=== PATIENT | female | born 1940 | race Caucasian/White ===

== ENCOUNTER → 2018-05-05 12:28 | Outpatient (CLI) | payer MEDICARE, OTHER, SELFPAY ==
[2018-05-05 14:07] LABS: Erythrocyte Sedimentation Rate 2 mm/hr (0-30)
[2018-05-05 14:16] LABS: Rheumatoid Factor < 10.0 IU/mL (<15)
[2018-05-08 17:45] LABS: ANTINUCLEAR ANTIBODIES DIRECT Negative (Negative)
== END ==
PROVIDERS: Family Provider Internal Medicine; PCP Internal Medicine; Visit Provider Internal Medicine Pulmonary Disease
DX: R05 Cough (principal)
CPT/HCPCS: 36415; 82164; 85652; 86038; 86431; 87385

== ENCOUNTER → 2018-05-06 09:58 | Outpatient (CLI) | payer MEDICARE, OTHER, SELFPAY | PROVIDERS: Family Provider Internal Medicine; PCP Internal Medicine; Visit Provider Internal Medicine Pulmonary Disease | DX: R05 Cough (principal) | CPT/HCPCS: 87015; 87070; 87077; 87101; 87106; 87116; 87205; 87206 ==

== ENCOUNTER → 2018-06-14 10:15 | Outpatient (CLI) | payer MEDICARE, OTHER, SELFPAY | PROVIDERS: Family Provider Internal Medicine; PCP Internal Medicine; Visit Provider Internal Medicine Pulmonary Disease | DX: J47.9 Bronchiectasis, uncomplicated (principal) | CPT/HCPCS: 87015; 87116; 87206 ==

== ENCOUNTER → 2018-06-30 10:31 | Outpatient (CLI) | payer MEDICARE, OTHER, SELFPAY | PROVIDERS: Family Provider Internal Medicine; PCP Internal Medicine; Visit Provider Surgery | DX: Z12.31 Encounter for screening mammogram for malignant neoplasm of breast (principal); Z85.3 Personal history of malignant neoplasm of breast; Z90.12 Acquired absence of left breast and nipple | CPT/HCPCS: 77061; 77067; G0279 ==

== ENCOUNTER → 2018-07-19 09:24 | Outpatient (CLI) | payer MEDICARE, OTHER, SELFPAY | PROVIDERS: Family Provider Internal Medicine; PCP Internal Medicine; Visit Provider Internal Medicine Pulmonary Disease | DX: J47.9 Bronchiectasis, uncomplicated (principal) | CPT/HCPCS: 87015; 87070; 87116; 87205; 87206 ==

== ENCOUNTER → 2018-07-20 09:11 | Outpatient (CLI) | payer MEDICARE, OTHER, SELFPAY | PROVIDERS: Family Provider Internal Medicine; PCP Internal Medicine; Visit Provider Internal Medicine Pulmonary Disease | DX: J47.9 Bronchiectasis, uncomplicated (principal) | CPT/HCPCS: 87015; 87070; 87116; 87205; 87206 ==

== ENCOUNTER → 2018-08-11 09:31 | Outpatient (CLI) | payer MEDICARE, OTHER, SELFPAY ==
[2018-08-11 10:56] LABS: Absolute Lymphocyte Count 1.67 X10^3/ul (0.83-4.51); Absolute Neutrophil Count 5.5 X10^3/uL (2.0-7.7); Basophil# 0.05 X10^3/uL; Basophil% 0.6 % (0-1); Eosinophil# 0.19 X10^3/uL; Eosinophils% 2.4 % (0-5); Hematocrit 46.8 % (37-47); Hemoglobin 15.4 g/dl (12.0-15.0); Lymphocyte # 1.67 X10^3/ul (4.0); Lymphocyte % 20.8 % (19-41); Mean Corp Hgb Conc 32.9 g/gl (32-36); Mean Corpuscular Hgb 28.6 pg (27.0-32.0); Mean Corpuscular Volume 86.8 fL (81-99); Mean Platelet Vol. 9.9 fl (6.2-12.0); Monocyte# 0.56 X10^3/uL; Neutrophil # 5.52 X10^3/uL (2.7-7.7); Platelet Count 379 K/mm3 (150-450); RBC Distribution Width CV 13.9 % (11.6-14.6); RBC Distribution Width SD 44.4 fl (35.1-43.9); Red Blood Count 5.39 M/mm3 (4.2-5.4)
[2018-08-11 10:57] LABS: POSITIVE COUNT NO; POSITIVE DIFFERENTIAL NO; POSITIVE MORPHOLOGY NO
[2018-08-14 14:06] LABS: Immunoglobulin A 145 mg/dL (64-422); Immunoglobulin G 850 mg/dL (700-1600); Immunoglobulin M 34 mg/dL (26-217)
[2018-08-15 09:29] LABS: Immunoglobulin E 13 IU/mL (0-100)
== END ==
PROVIDERS: Family Provider Internal Medicine; PCP Internal Medicine; Referring Provider Internal Medicine Pulmonary Disease; Visit Provider Internal Medicine Pulmonary Disease
DX: J47.9 Bronchiectasis, uncomplicated (principal)
CPT/HCPCS: 36415; 82784; 82785; 85025; 87101; 87106

== ENCOUNTER 2018-10-18 10:52 | Day surgery (SDC) | payer MEDICARE, OTHER, SELFPAY ==
[2018-10-18] VITALS (11 sets, daily range): BP systolic 116–165; BP diastolic 75–108; PULSE 78–102; RESP 16–18; TEMP 36.2–36.7; O2SAT 93–98; BMI 33.0
--- NOTE | 2018-10-18 | FLU_PTH ---
PATIENT: SADAF KRUGER LOC: EN U#:[id number] AGE/SX: 78/F ROOM: RE10/18/[address]: Dr. Addi Henson MD : 1940 BED: DIS: 10/18/2018 SPEC #: [id number] RECD: 10/18/18 14:46 STATUS: ELAINE ALIYAH #: [id number] SHIRAZ: 10/18/18 00:[address]: Addi Henson V DEPT: CYTOLOGY RECD BY: Sumeet Lam ENTERED: 10/18/18 14:46 SP TYPE: Fluid OTHR DR: Dr. Kristal Gutierrez MD Tissues: Bronchus of right upper lobe Procedures: Pap Stain (control) Special Stain Group II Surgery Specimen Level IV Cell Block Cytospin Fluid HEADER OPERATION: Bronchoscopy, BAL PRE-OP DIAGNOSIS: Mucous plug TISSUE SUBMITTED: RUL anterior segment DIAGNOSIS CYTOLOGY Right upper lobe anterior segment mucous plug (cytospin and cell block): Negative for malignant cells. Acute inflammation. AM:annika 10/19/18 COMMENT The specimen contains abundant acute inflammation, degenerating epithelial cells and occasional bacterial colonies. Clinical correlation is suggested. CYTOLOGY STUDY Slides are reviewed. CYTOLOGY GROSS Received is 25 ml of white cloudy fluid labeled with the patient's name and and designated per the requisition as RUL anterior segment. Submitted for cytology preparation including cell block. / 10/18/18 TC:2 CPT: 02963, 60462
[2018-10-18 14:17] LABS: Cytology, Washings SEE PATHOLOGY REPORT
[2018-10-18 14:56] LABS: Source- Body Fluid BRONCHIAL LAVAGE
[2018-10-18 14:57] LABS: Appearance/Body Fluid CLOUDY; Body Fluid QC Type(s) BF1Q,BF2Q; Color/Body Fluid COLORLESS; Red Cell Count/Body Fluid 238 /mm3; White Blood Count/Body Fluid 5788 /mm3
[2018-10-18 15:07] LABS: Lymphocytes 11 %; Monocytes 10 %; Neutrophil (Segs) 79 %
[2018-10-19 10:20] LABS: Pathologist Comment/Body Fluid Reviewed
--- NOTE | 2018-10-25 09:16 | OP.ENDO_ITS ---
Patient Name: Hollie Ugarte Procedure Date: 10/18/2018 12:27 PM Date of : 1940 Age: 78 Procedure: Bronchoscopy Indications: Chronic cough with abnormal CT Providers: Addi Henson MD Referring MD: Kristal Gutierrez Medicines: Lidocaine applied to nares and subglottic space, Lidocaine 2% Nebulizer 2.5 mL, Propofol per Anesthesia Complications: No immediate complications Procedure: Pre-Anesthesia Assessment: - A History and Physical has been performed. Patient meds and allergies have been reviewed. The risks and benefits of the procedure and the sedation options and risks were discussed with the patient. All questions were answered and informed consent was obtained. Patient identification and proposed procedure were verified prior to the procedure in the procedure room. Mental Status Examination: normal. Airway Examination: normal oropharyngeal airway. Respiratory Examination: clear to auscultation. CV Examination: RRR, no murmurs, no S3 or S4. ASA Grade Assessment: II - A patient with mild systemic disease. After reviewing the risks and benefits, the patient was deemed in satisfactory condition to undergo the procedure. The anesthesia plan was to use See Anastvenkatia notes, Diprovan used. Immediately prior to administration of medications, the patient was re-assessed for adequacy to receive sedatives. The heart rate, respiratory rate, oxygen saturations, blood pressure, adequacy of pulmonary ventilation, and response to care were monitored throughout the procedure. The physical status of the patient was re-assessed after the procedure. - A History and Physical has been performed. Patient meds and allergies have been reviewed. The risks and benefits of the procedure and the sedation options and risks were discussed with the patient's The patient. All questions were answered and informed consent was obtained. Patient identification and proposed procedure were verified prior to the procedure by the nurse in the procedure room Proceedure room. Mental Status Examination: normal. Airway Examination: normal oropharyngeal airway. Respiratory Examination: clear to auscultation. CV Examination: normal. ASA Grade Assessment: II - A patient with mild systemic disease. After reviewing the risks and benefits, the patient was deemed in satisfactory condition to undergo the procedure. The anesthesia plan was to use moderate sedation / analgesia (conscious sedation). Immediately prior to administration of medications, the patient was re-assessed for adequacy to receive sedatives. The heart rate, respiratory rate, oxygen saturations, blood pressure, adequacy of pulmonary ventilation, and response to care were monitored throughout the procedure. The physical status of the patient was re-assessed after the procedure. After I obtained informed consent, the scope was passed under direct vision. Throughout the procedure, the patient's blood pressure, pulse, and oxygen saturations were monitored continuously. The bronchoscope was introduced through the right nostril and advanced to the tracheobronchial tree of both lungs. The procedure was accomplished without difficulty. Findings: The nasopharynx/oropharynx appears normal. The larynx appears normal. The vocal cords appear normal. The subglottic space is normal. The trachea is of normal caliber. The harley is sharp. The tracheobronchial tree was examined to at least the first subsegmental level. Bronchial mucosa and anatomy are normal; there are no endobronchial lesions, and no secretions. Bronchoalveolar lavage was performed in the RUL anterior segment (B3) of the lung and sent for cell count, bacterial culture, viral smears & culture, fungal & AFB analysis and cytology for immunocompromised host protocol, cell count and differential, bacterial, AFB and fungal analysis, AFB analysis & culture and Aspergillus antigen. 120 mL of fluid were instilled. 40 mL were returned. The return was cloudy. Mucous plugs were present in the return fluid. Right Lung Abnormalities: Edema was found in the anterior segment of the right upper lobe (B3). Impression: - Chronic cough with abnormal CT - The airway examination was normal. - Bronchoalveolar lavage was performed. - Edema was present in the anterior segment of the right upper lobe (B3). - Normal nasal passageway. - Chronic bronchitis was found. - A mucous plug was found in the anterior segment of the left upper lobe (B3). Recommendation: - Await BAL results. Procedure Code(s): --- Professional --- 50488, Bronchoscopy, rigid or flexible, including fluoroscopic guidance, when performed; with bronchial alveolar lavage Diagnosis Code(s): --- Professional --- T17.990A, Other foreign object in respiratory tract, part unspecified in causing asphyxiation, initial encounter J42, Unspecified chronic bronchitis R91.8, Other nonspecific abnormal finding of lung field R05, Cough CPT copyright 2017 [employer]. All rights reserved. The codes documented in this report are preliminary and upon technical services consultant review may be revised to meet current compliance requirements. MD Addi Page MD 10/25/2018 9:16:26 AM This report has been signed electronically. Number of Addenda: 0 Note Initiated On: 10/18/2018 12:27 PM
== END 2018-10-18 15:17 | disposition home or self-care (01) ==
LOC: EN 10:53 → AC 10:59
PROVIDERS: Family Provider Internal Medicine; PCP Internal Medicine; Referring Provider Internal Medicine; Visit Provider Internal Medicine Pulmonary Disease
PROC: 0BJ08ZZ Inspection of Tracheobronchial Tree, Via Natural or Artificial Opening Endoscopic (ICD-10-PCS; CPT 31622; principal; 2018-10-18 11:45)
DX: J42 Unspecified chronic bronchitis (principal); T17.890A Other foreign object in other parts of respiratory tract causing asphyxiation, initial encounter; X58.XXXA Exposure to other specified factors, initial encounter; Y93.9 Activity, unspecified; Y92.9 Unspecified place or not applicable; Y99.9 Unspecified external cause status; R05 Cough; J47.9 Bronchiectasis, uncomplicated; J30.9 Allergic rhinitis, unspecified; B37.9 Candidiasis, unspecified; I10 Essential (primary) hypertension; E55.9 Vitamin D deficiency, unspecified; K21.9 Gastro-esophageal reflux disease without esophagitis; F32.9 Major depressive disorder, single episode, unspecified; F41.9 Anxiety disorder, unspecified; Z78.0 Asymptomatic menopausal state; Z85.828 Personal history of other malignant neoplasm of skin; Z85.3 Personal history of malignant neoplasm of breast; Z86.718 Personal history of other venous thrombosis and embolism
CPT/HCPCS: 31624; 87015; 87070; 87075; 87077; 87101; 87106; 87116; 87186; 87205; 87206; 88108; 88305; 88313; 89050; J7120

== ENCOUNTER 2018-11-03 16:56 | Observation (INO) | payer MEDICARE, OTHER, SELFPAY ==
[2018-10-18 11:44] VITALS: BMI 33.0
[2018-11-03 16:58] VITALS: BP 154/75; PULSE 109; RESP 18; TEMP 37.2; O2SAT 96; BMI 31.3
--- NOTE | 2018-11-03 17:10 | EKG12_ITS ---
Test Reason : SYNCOPE Blood Pressure : / mmHG Vent. Rate : 105 BPM Atrial Rate : 105 BPM P-R Int : 166 ms QRS Dur : 086 ms QT Int : 340 ms P-R-T Axes : 038 -47 084 degrees QTc Int : 449 ms Sinus tachycardia Left axis deviation Left ventricular hypertrophy with repolarization abnormality Abnormal ECG Confirmed by PARTHA HOWARD ([id number]), greeting card editor DC HAWKINS ([id number]) on 11/06/2018 12:59:54 PM Referred By: SARA Confirmed By:PARTHA HOWARD
--- NOTE | 2018-11-03 17:11 | CT_ITS ---
STUDY: CT BRAIN WITHOUT CONTRAST REASON FOR EXAM: Female, 78 years old. Syncope. RADIATION DOSAGE (If Supplied By Facility): CTDIvol = ( 44.99 ) mGy, DLP = ( 745.49 ) mGycm TECHNIQUE: Transaxial CT imaging of the brain was performed without administration of intravenous contrast material. Individualized dose optimization techniques were used for this CT. COMPARISON: None. FINDINGS: Normal soft tissue structures. Normal calvarium. There is mild cerebral atrophy with widening of the extra-axial spaces and ventricular dilatation. There are areas of decreased attenuation within the white matter tracts of the supratentorial brain, consistent with microvascular disease changes. Normal basal ganglia and thalami. Normal brainstem. There is mild cerebellar atrophy. There is no intracranial hemorrhage. There are no findings of an acute ischemic infarction. There is mucoperiosteal inflammatory disease of the paranasal sinuses consistent with moderate chronic sinusitis. CT/Brain/Head without Contrast IMPRESSION: Stable atrophy and white matter disease with no acute abnormality. Electronically Signed: Felipe Infante MD at 17:49 EST , Service support ,
--- NOTE | 2018-11-03 17:11 | CT_ITS ---
STUDY: CT CERVICAL SPINE WITHOUT CONTRAST REASON FOR EXAM: Female, 78 years old. Syncope. Fall. RADIATION DOSAGE (If Supplied By Facility): CTDIvol = ( 26.75 ) mGy, DLP = ( 516.09 ) mGycm TECHNIQUE: High resolution transaxial imaging was performed without contrast material. Sagittal and coronal images were reconstructed. Individualized dose optimization techniques were used for this CT. COMPARISON: None FINDINGS: No definite acute fracture/dislocation. The cervical junction is intact. C1-C2 articulation is intact. Mild reversal of curvature. 2 mm anterolisthesis of C3 on C4. 2 mm anterolisthesis of C4 on C5. Otherwise normal alignment. Facet joints are intact at all levels bilaterally. No jumped facets. There is multilevel spondyloarthropathy. Multilevel degenerative disc disease seen. Multilevel loss of disc height. Multilevel posterior marginal osteophytes and disc bulges. Multilevel neural foraminal narrowing. Findings most prominent at C6-C7. Visualized paraspinal soft tissues and structures are unremarkable. CT/Spine Cervical without Contras IMPRESSION: There is no definite acute fracture/dislocation. Degenerative changes. Electronically Signed: Felipe Infante MD at 18:15 EST , Service support ,
--- NOTE | 2018-11-03 17:25 | RAD_ITS ---
STUDY: X-RAY CHEST REASON FOR EXAM: Female, 78 years old. Syncope. TECHNIQUE: Single AP portable view of the chest. COMPARISON: None. FINDINGS: The lungs are clear and expanded. There is no demonstrated pleural abnormality. Normal size heart. Normal mediastinum and amy. Normal visualized pulmonary arteries. There is atherosclerotic tortuosity of the aortic arch and descending thoracic aorta. Normal visualized thoracic spine. Normal visualized ribs, clavicles, and shoulders. There is no demonstrated abnormality of the visualized soft tissue structures of the upper abdomen. There are clips in the left axilla consistent with lymphadenectomy for breast cancer. RAD/Chest 1 View (Portable) IMPRESSION: No acute chest disease. Electronically Signed: Felipe Infante MD at 18:17 EST , Service support ,
[2018-11-03] MEDS: 0.9% Normal Saline 1,000 ML 150 ML IV ×2 (17:38→23:26)
[2018-11-03 17:39] LABS: Absolute Neutrophil Count 5.5 X10^3/uL (2.0-7.7); Basophil# 0.06 X10^3/uL; Basophil% 0.8 % (0-1); Eosinophil# 0.12 X10^3/uL; Eosinophils% 1.5 % (0-5); Hematocrit 45.8 % (37-47); Hemoglobin 15.1 g/dl (12.0-15.0); Lymphocyte % 20.2 % (19-41); Mean Corpuscular Hgb 28.2 pg (27.0-32.0); Mean Corpuscular Volume 85.6 fL (81-99); Mean Platelet Vol. 9.5 fl (6.2-12.0); Monocyte# 0.59 X10^3/uL; Monocyte% 7.5 % (0-10); Neutrophil # 5.52 X10^3/uL (2.7-7.7); Neutrophil % 69.7 % (47-70); Platelet Count 311 K/mm3 (150-450); RBC Distribution Width CV 13.4 % (11.6-14.6); RBC Distribution Width SD 41.7 fl (35.1-43.9); Red Blood Count 5.35 M/mm3 (4.2-5.4); White Blood Count 7.9 K/mm3 (4.4-11.0)
[2018-11-03 17:45] LABS: POSITIVE COUNT NO; POSITIVE DIFFERENTIAL NO; POSITIVE MORPHOLOGY NO
--- NOTE | 2018-11-03 17:56 | ED.VISSUMM ---
- ER Visit Summary Date of Service: 11/03/18 Chief Complaint: Near syncope History of Present Illness: The patient is a 78 F with a history of chronic cough for the past 3 years. She had a bronchoscopy performed approximately 2 weeks ago and is currently on Brisa nasal lid. Patient reports multiple episodes of near syncope that have worsened since her bronchoscopy. Today she fell to the ground with this episode but denied any full loss of consciousness. She denies palpitations or irregular heart rate prior to the episodes. Past history significant for reflux disease, hypertension, and breast cancer that led to mastectomy. She has had prior cholecystectomy. Physical Examination: Blood pressure is 154/75, temperature 98.9, heart rate 109, respiratory rate 18, pulse ox 96% on room air. Patient sitting upright in bed no acute distress. She is alert and speaking full sentences. Head neck examination was mild cervical paraspinal tenderness. Heart is regular rate and rhythm. Lung sounds are clear. Abdomen is soft and nontender. Extremity examination reveals mild tenderness to both shoulders, but she does have full range of motion. Neuro exam reveals no focal deficits. Test Results: EKG is sinus tach at 105, unchanged when compared to prior. CBC was hemoglobin 15.1. Chemistry studies normal. Troponin less than 0.015. Chest x-ray shows no acute disease. CT head shows stable findings with no acute abdomen noted. CT the C-spine shows no acute fracture. Emergency Department Course and Treatment: Patient received IV fluids here. On repeat evaluation she remains mildly tachycardic. Patient has had multiple episodes of near syncope, today to the point where she fell to the floor. She will be admitted observation status overnight for monitoring. Treatment Plan: [] Disposition: Admit Impression: Near syncope This note was generated with [employer] dictation software. It may contain incorrect words, spelling, and punctuation that were not noted in review of the chart prior to signing ED Disposition - Plan for ED Patient: Chief Complaint: Syncope Referrals: Kristal Gutierrez MD [Primary Care Provider] -
[2018-11-03 18:24] LABS: Anion Gap 11 (5-15); BUN 15 mg/dL (7-18); BUN/Creat Ratio 14.9 RATIO (10-20); Calcium,Total 8.6 mg/dL (8.5-10.1); Chloride 107 mmol/L (98-107); Creatinine, Serum 1.01 mg/dL (0.55-1.02); EST Glomerular Filtration Rate 56 mL/min (>60); Est Glom Filt Rate - Afr Amer 68 mL/min (>60); Glucose 137 mg/dL (74-106); Potassium 3.6 mmol/L (3.5-5.1); Sodium Level 139 mmol/L (136-145)
[2018-11-03 18:39] VITALS: BP 160/90; PULSE 110; RESP 18; TEMP 37.1; O2SAT 98
[2018-11-03 19:00] VITALS: BP 137/73; PULSE 110; RESP 19; TEMP 37.1; O2SAT 100
--- NOTE | 2018-11-03 20:00 | PCM.HP.STD ---
History of Present Illness Date of Admission: 11/03/18 The patient is a 78 year old F past medical history of hypertension and depression. She recently had a bronchial washout on account of a chronic cough for 3 years and states that she was found to have MRSA in the right lung. She was started on linezolid. She is for about the past couple of weeks, she has been having some spells which her description of it is very vague but states that she feels like her head gets clouded and she has to struggle to get out of this face and also feels some stiffness on the right side. She also feels like she is about to fall when she has those episodes and had one today which her witnessed that she fell. She did not lose consciousness but had (afterwards she was quite drowsy and lethargic. She had no associated urinary or fecal incontinence or tongue biting. She denied feeling her heart racing admitted to subjective fever but no chills, denies any chest pain, palpitations, abdominal pain, diarrhea or vomiting. She denies any weakness in any extremity and has not noticed any mouth drooping. In the ED, vitals were significant for tachycardia with heart rate of 110. CBC was unremarkable and BMP was also unremarkable. Brain CT showed stable atrophy and areas of decreased attenuation in white matter tracts of supratentorial brain consistent with microvascular disease changes. CT of the cervical spine showed no definite acute fracture or dislocation and only showed degenerative changes. Chest x-ray showed no acute cardia pulmonary process. She has been admitted to be managed for near syncope to rule out a seizure. [] Past Medical History Allergies oxycodone HCl [From Percodan] Adverse Reaction (Verified 11/03/18 19:15) Nausea oxycodone terephthalate [From Percodan] Adverse Reaction (Verified 11/03/18 19:15) Nausea Sulfa (Sulfonamide Antibiotics) Adverse Reaction (Verified 11/03/18 19:15) Nausea/Vom/Diarrhea PEROXIDE Adverse Reaction (Uncoded 11/03/18 19:15) IN TOOTHEPASTE- CAUSED BLISTERS. Home Medications: Ambulatory Orders Medication Instructions Recorded ALPRAZolam [Xanax] 0.125 - 0.25 mg PO BID PRN PRN 10/14/15 Amlodipine [Norvasc] 5 mg PO DAILY 10/14/15 Timolol 0.5% [Timoptic] 2 drop EACH EYE BID 10/14/15 Ergocalciferol [Vitamin D] 50,000 unit PO UD 01/26/16 Acetaminophen [Tylenol Extra 500 mg PO QHS 11/03/18 Strength] Cyanocobalamin (Vitamin B-12) 1,000 mcg PO DAILY 11/03/18 [Vitamin B-12] Epinastine HCl [Elestat 0.05%] 1 drop EACH EYE PRN PRN 11/03/18 Fexofenadine HCl 180 mg PO DAILY 11/03/18 Flaxseed Oil 1,000 mg PO DAILY 11/03/18 Fluticasone/Vilanterol [Breo 1 puff INHALATION BID 11/03/18 Ellipta 200-25 Mcg INH] Ibuprofen [Advil] 200 mg PO PRN PRN 11/03/18 Linezolid 600 mg PO DAILY 11/03/18 Omeprazole 40 mg PO DAILY 11/03/18 Surgical History: - - Mastectomy Psychiatric History: Depression 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 Denies: Chills, Malaise, Weight Change Eyes: Denies: Blurred vision, Double vision, Vision Change HEENT: Denies: Head Aches, Sinus Congestion, Sinus Drainage Cardiovascular: Denies: Chest Pain, Chest Tightness, Heaviness, Light Headedness, Palpitations Respiratory: Denies: Pleuritic Pain, Shortness of Breath, Shortness of breath at rest, Shortness of breath upon exertion, Wheezing Gastrointestinal: Denies: Abdominal Pain, Nausea, Vomiting Genitourinary: Denies: Dysuria Musculoskeletal: Denies: Joint Pain, Joint Tenderness Skin: Denies: Rash, Wounds Neurological: Reports: Confusion. Denies: Balance problems, Blurred vision, Double vision, Change in Speech, Slurred speech, Focal weakness, Numbness, Tingling, Seizures Psychiatric: Reports: Depression. Denies: Anxiety Hematologic/ Lymphatic: Denies: Easy Bruising, Easy Bleeding VTE Information - Inpt Only VTE Present on Admission: No VTE Pharm Prophylaxis ordered?: Yes - Physical Exam General: Alert, Oriented x3, Cooperative, No apparent distress, Lethargic HEENT: Atraumatic, PERRLA, EOMI, Normocephalic Oral: Moist Mucosa Neck: Supple, No JVD, Negative Carotid Bruits Lungs: Clear to auscultation, Normal air movement, No rhonchi, No wheeze, No rales Cardiovascular: Regular rate, Regular Rhythm, Normal S1, Normal S2, No murmurs Abdomen: Bowel Sounds Present, Soft, Non Tender, Non-Distended, No Hepato-splenomegaly Extremities: No clubbing, No cyanosis, No edema, Capillary Refill Less than 3 Seconds Skin: No rashes, No breakdown Musculoskeletal: No Tenderness to Palpation of Joints or Extremities Lymphatic: No Cervical, Supraclavicular, or Inguinal Adenopathy Neurological: Cranial nerves II-XII grossly intact, Deep Tendon Reflexes 2+/4 and Symmetrical, Neuro grossly intact, Motor Exam 5/5 strength throughout, Muscle tone normal, Sensory exam intact to light touch and pain, Coordination normal Psych/Mental Status: Normal Affect, Appropriate, Alert and oriented to time, place, person, mood and affect Vital Signs Temp Pulse Resp BP Pulse Ox 98.7 F 110 H 19 H 137/73 H 100 11/03/18 19:00 11/03/18 19:00 11/03/18 19:00 11/03/18 19:00 11/03/18 19:00 Oxygen Flow Rate (L/min) 2 Oxygen Delivery Method Nasal Cannula Weight: 150 lb Body Mass Index (BMI) 31.3 Laboratory Tests Past 24 Hrs 11/03/18 11/03/18 17:09 17:10 WBC 7.9 RBC 5.35 Hgb 15.1 H Hct 45.8 MCV 85.6 MCH 28.2 MCHC 33.0 RDW 13.4 RDW Differential 41.7 Plt Count 311 MPV 9.5 Immature Gran % (Auto) 0.300 Neut % (Auto) 69.7 Lymph % (Auto) 20.2 [place] % (Auto) 7.5 Eos % (Auto) 1.5 Baso % (Auto) 0.8 Absolute Neuts (auto) 5.5 Absolute Lymphs (auto) 1.60 Total Counted Not Reportable Sodium 139 Potassium 3.6 Chloride 107 Carbon Dioxide 21.0 Anion Gap 11 BUN 15 Creatinine 1.01 Estim Creat Clear Calc 50.10 Est GFR (MDRD) Af Amer 68 Est GFR (MDRD) Non-Af 56 L BUN/Creatinine Ratio 14.9 Glucose 137 H Calcium 8.6 Troponin I < 0.[address] 11/03/18 17:11 IMPRESSION: Stable atrophy and white matter disease with no acute abnormality. Electronically Signed: Felipe Infante MD at 17:49 EST , Service support , Cervical Spine CT 11/03/18 17:11 IMPRESSION: There is no definite acute fracture/dislocation. Degenerative changes. Electronically Signed: Felipe Infante MD at 18:15 EST , Service support , Chest X-Ray 11/03/18 17:25 IMPRESSION: No acute chest disease. Electronically Signed: Felipe Infante MD at 18:17 EST , Service support , Assessment/Plan All Active Problems Pain of right middle finger (Acute) Joint swelling, finger, hand (Acute) Cellulitis of finger (Acute) Nonhealing surgical wound (Acute) 78-year-old female presenting with complaints of near syncope 1. near syncope of unknown etiology differentials include cardiac arrhythmia vs seizure says symptoms started after she started taking Linezolid for MRSA infection in her right lung symptom description is very vague fell today admit to PCU with telemetry EKG showed sinus tachycardia with LVH and repolarisation abnormalities neurology consult monitor telemetry for any arrhhythmia monitor electrolytes to ensure they are WNL check orthostatics hydrate gently with IVF NS 2. Hypertension: fairly controlled; on amlodipine 3. MRSA lung infection: as recently diagnosed per bronchial washout and culture. on Linezolid. Side effects of linezolid reviewed and include seizures. Will hold for now until neurology reviews patient. 4. 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 Will monitor. DVT prophylaxis: heparin GI prophylaxis: on PPI Code Visit OBSV E&M: 60420 Initial observation care L3
--- NOTE | 2018-11-03 20:04 | HP.PCM_ITS ---
History of Present Illness Date of Admission: 11/03/18 The patient is a 78 year old F past medical history of hypertension and depression. She recently had a bronchial washout on account of a chronic cough for 3 years and states that she was found to have MRSA in the right lung. She was started on linezolid. She is for about the past couple of weeks, she has been having some spells which her description of it is very vague but states that she feels like her head gets clouded and she has to struggle to get out of this face and also feels some stiffness on the right side. She also feels like she is about to fall when she has those episodes and had one today which her witnessed that she fell. She did not lose consciousness but had (afterwards she was quite drowsy and lethargic. She had no associated urinary or fecal incontinence or tongue biting. She denied feeling her heart racing admitted to subjective fever but no chills, denies any chest pain, palpitations, abdominal pain, diarrhea or vomiting. She denies any weakness in any extremity and has not noticed any mouth drooping. In the ED, vitals were significant for tachycardia with heart rate of 110. CBC was unremarkable and BMP was also unremarkable. Brain CT showed stable atrophy and areas of decreased attenuation in white matter tracts of supratentorial brain consistent with microvascular disease changes. CT of the cervical spine showed no definite acute fracture or dislocation and only showed degenerative changes. Chest x-ray showed no acute cardia pulmonary process. She has been admitted to be managed for near syncope to rule out a seizure. [] Past Medical History Allergies oxycodone HCl [From Percodan] Adverse Reaction (Verified 11/03/18 19:15) Nausea oxycodone terephthalate [From Percodan] Adverse Reaction (Verified 11/03/18 19:15) Nausea Sulfa (Sulfonamide Antibiotics) Adverse Reaction (Verified 11/03/18 19:15) Nausea/Vom/Diarrhea PEROXIDE Adverse Reaction (Uncoded 11/03/18 19:15) IN TOOTHEPASTE- CAUSED BLISTERS. Home Medications: Ambulatory Orders Medication Instructions Recorded ALPRAZolam [Xanax] 0.125 - 0.25 mg PO BID PRN PRN 10/14/15 Amlodipine [Norvasc] 5 mg PO DAILY 10/14/15 Timolol 0.5% [Timoptic] 2 drop EACH EYE BID 10/14/15 Ergocalciferol [Vitamin D] 50,000 unit PO UD 01/26/16 Acetaminophen [Tylenol Extra 500 mg PO QHS 11/03/18 Strength] Cyanocobalamin (Vitamin B-12) 1,000 mcg PO DAILY 11/03/18 [Vitamin B-12] Epinastine HCl [Elestat 0.05%] 1 drop EACH EYE PRN PRN 11/03/18 Fexofenadine HCl 180 mg PO DAILY 11/03/18 Flaxseed Oil 1,000 mg PO DAILY 11/03/18 Fluticasone/Vilanterol [Breo 1 puff INHALATION BID 11/03/18 Ellipta 200-25 Mcg INH] Ibuprofen [Advil] 200 mg PO PRN PRN 11/03/18 Linezolid 600 mg PO DAILY 11/03/18 Omeprazole 40 mg PO DAILY 11/03/18 Surgical History: - - Mastectomy Psychiatric History: Depression 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 Denies: Chills, Malaise, Weight Change Eyes: Denies: Blurred vision, Double vision, Vision Change HEENT: Denies: Head Aches, Sinus Congestion, Sinus Drainage Cardiovascular: Denies: Chest Pain, Chest Tightness, Heaviness, Light Headedness, Palpitations Respiratory: Denies: Pleuritic Pain, Shortness of Breath, Shortness of breath at rest, Shortness of breath upon exertion, Wheezing Gastrointestinal: Denies: Abdominal Pain, Nausea, Vomiting Genitourinary: Denies: Dysuria Musculoskeletal: Denies: Joint Pain, Joint Tenderness Skin: Denies: Rash, Wounds Neurological: Reports: Confusion. Denies: Balance problems, Blurred vision, Double vision, Change in Speech, Slurred speech, Focal weakness, Numbness, Tingling, Seizures Psychiatric: Reports: Depression. Denies: Anxiety Hematologic/ Lymphatic: Denies: Easy Bruising, Easy Bleeding VTE Information - Inpt Only VTE Present on Admission: No VTE Pharm Prophylaxis ordered?: Yes - Physical Exam General: Alert, Oriented x3, Cooperative, No apparent distress, Lethargic HEENT: Atraumatic, PERRLA, EOMI, Normocephalic Oral: Moist Mucosa Neck: Supple, No JVD, Negative Carotid Bruits Lungs: Clear to auscultation, Normal air movement, No rhonchi, No wheeze, No rales Cardiovascular: Regular rate, Regular Rhythm, Normal S1, Normal S2, No murmurs Abdomen: Bowel Sounds Present, Soft, Non Tender, Non-Distended, No Hepato- splenomegaly Extremities: No clubbing, No cyanosis, No edema, Capillary Refill Less than 3 Seconds Skin: No rashes, No breakdown Musculoskeletal: No Tenderness to Palpation of Joints or Extremities Lymphatic: No Cervical, Supraclavicular, or Inguinal Adenopathy Neurological: Cranial nerves II-XII grossly intact, Deep Tendon Reflexes 2+/4 and Symmetrical, Neuro grossly intact, Motor Exam 5/5 strength throughout, Muscle tone normal, Sensory exam intact to light touch and pain, Coordination normal Psych/Mental Status: Normal Affect, Appropriate, Alert and oriented to time, place, person, mood and affect Vital Signs Temp Pulse Resp BP Pulse Ox 98.7 F 110 H 19 H 137/73 H 100 11/03/18 19:00 11/03/18 19:00 11/03/18 19:00 11/03/18 19:00 11/03/18 19:00 Oxygen Flow Rate (L/min) 2 Oxygen Delivery Method Nasal Cannula Weight: 150 lb Body Mass Index (BMI) 31.3 Laboratory Tests Past 24 Hrs 11/03/18 11/03/18 17:09 17:10 WBC 7.9 RBC 5.35 Hgb 15.1 H Hct 45.8 MCV 85.6 MCH 28.2 MCHC 33.0 RDW 13.4 RDW Differential 41.7 Plt Count 311 MPV 9.5 Immature Gran % (Auto) 0.300 Neut % (Auto) 69.7 Lymph % (Auto) 20.2 [place] % (Auto) 7.5 Eos % (Auto) 1.5 Baso % (Auto) 0.8 Absolute Neuts (auto) 5.5 Absolute Lymphs (auto) 1.60 Total Counted Not Reportable Sodium 139 Potassium 3.6 Chloride 107 Carbon Dioxide 21.0 Anion Gap 11 BUN 15 Creatinine 1.01 Estim Creat Clear Calc 50.10 Est GFR (MDRD) Af Amer 68 Est GFR (MDRD) Non-Af 56 L BUN/Creatinine Ratio 14.9 Glucose 137 H Calcium 8.6 Troponin I < 0.[address] 11/03/18 17:11 IMPRESSION: Stable atrophy and white matter disease with no acute abnormality. Electronically Signed: Felipe Infante MD at 17:49 EST , Service support , Cervical Spine CT 11/03/18 17:11 IMPRESSION: There is no definite acute fracture/dislocation. Degenerative changes. Electronically Signed: Felipe Infante MD at 18:15 EST , Service support , Chest X-Ray 11/03/18 17:25 IMPRESSION: No acute chest disease. Electronically Signed: Felipe Infante MD at 18:17 EST , Service support , Assessment/Plan All Active Problems Pain of right middle finger (Acute) Joint swelling, finger, hand (Acute) Cellulitis of finger (Acute) Nonhealing surgical wound (Acute) 78-year-old female presenting with complaints of near syncope 1. near syncope of unknown etiology * differentials include cardiac arrhythmia vs seizure * says symptoms started after she started taking Linezolid for MRSA infection in her right lung * symptom description is very vague * fell today * admit to PCU with telemetry * EKG showed sinus tachycardia with LVH and repolarisation abnormalities * neurology consult * monitor telemetry for any arrhhythmia * monitor electrolytes to ensure they are WNL * check orthostatics * hydrate gently with IVF NS * 2. Hypertension: fairly controlled; on amlodipine 3. MRSA lung infection: * as recently diagnosed per bronchial washout and culture. on Linezolid. * Side effects of linezolid reviewed and include seizures. * Will hold for now until neurology reviews patient. 4. Depression: States antidepressant was stopped by her life science technician on account of her starting Zyvox. Will monitor. DVT prophylaxis: heparin GI prophylaxis: on PPI Code Visit OBSV E&M: 60586 Initial observation care L3
[2018-11-03 20:28] VITALS: BMI 32.2
[2018-11-03 20:34] VITALS: BMI 32.1
[2018-11-03 20:36] VITALS: PULSE 109
[2018-11-03 20:38] VITALS: BP 136/110; PULSE 104; RESP 18; TEMP 36.8; O2SAT 97
[2018-11-03] MEDS: Acetaminophen 500 MG Tablet PO (20:57)
[2018-11-03] MEDS: Timolol 0.5% 5ML OPTH.BTL 1 DRP EACH EYE (22:01)
[2018-11-03 23:00] VITALS: PULSE 79
[2018-11-04] VITALS (16 sets, daily range): BP systolic 119–153; BP diastolic 55–86; PULSE 59–108; RESP 16–18; TEMP 36.6–36.8; O2SAT 94–97
[2018-11-04 06:25] LABS: Absolute Lymphocyte Count 1.72 X10^3/ul (0.83-4.51); Absolute Neutrophil Count 3.3 X10^3/uL (2.0-7.7); Basophil# 0.06 X10^3/uL; Basophil% 1.1 % (0-1); Eosinophil# 0.15 X10^3/uL; Eosinophils% 2.7 % (0-5); Hematocrit 41.9 % (37-47); Hemoglobin 13.7 g/dl (12.0-15.0); Lymphocyte # 1.72 X10^3/ul (4.0); Lymphocyte % 30.7 % (19-41); Mean Corp Hgb Conc 32.7 g/gl (32-36); Mean Corpuscular Hgb 28.2 pg (27.0-32.0); Mean Corpuscular Volume 86.4 fL (81-99); Mean Platelet Vol. 9.2 fl (6.2-12.0); Monocyte# 0.41 X10^3/uL; Monocyte% 7.3 % (0-10); Neutrophil # 3.26 X10^3/uL (2.7-7.7); Platelet Count 252 K/mm3 (150-450); RBC Distribution Width CV 13.5 % (11.6-14.6); RBC Distribution Width SD 41.5 fl (35.1-43.9); Red Blood Count 4.85 M/mm3 (4.2-5.4); White Blood Count 5.6 K/mm3 (4.4-11.0)
[2018-11-04 06:32] LABS: POSITIVE COUNT NO; POSITIVE DIFFERENTIAL NO; POSITIVE MORPHOLOGY NO
[2018-11-04] MEDS: 0.9% Normal Saline 1,000 ML 150 ML IV ×3 (06:34→21:04)
[2018-11-04 06:47] LABS: Anion Gap 8 (5-15); BUN 8 mg/dL (7-18); BUN/Creat Ratio 10.5 RATIO (10-20); Calcium,Total 7.9 mg/dL (8.5-10.1); Chloride 114 mmol/L (98-107); Creatinine, Serum 0.76 mg/dL (0.55-1.02); EST Glomerular Filtration Rate 78 mL/min (>60); Est Glom Filt Rate - Afr Amer 94 mL/min (>60); Estimated Creatinine Clearance 51.91 ml/min; Glucose 88 mg/dL (74-106); Potassium 3.9 mmol/L (3.5-5.1); Sodium Level 145 mmol/L (136-145)
[2018-11-04] MEDS: Albuterol 2.5 MG/3 ML VIAL.NEB. INHALATION ×2 (06:47→19:30)
[2018-11-04] MEDS: Budesonide Respules 0.5 MG/2 ML AMPUL.NEB. INHALATION ×2 (06:47→19:30)
--- NOTE | 2018-11-04 09:23 | MRI_ITS ---
STUDY: MRI BRAIN WITHOUT CONTRAST REASON FOR EXAM: Female, 78 years old. Near syncope. Vertigo. TECHNIQUE: Standardized multiplanar fat and water weighted pulse sequences were obtained. COMPARISON: CT brain 11/03/2018. FINDINGS: There is patient motion on several pulse sequences. There is no intracranial mass, hemorrhage, territorial infarct or acute ischemia. There is mild cerebral atrophy with widening of the extra-axial spaces and ventricular dilatation. There are a limited number of small white matter hyperintensities, distributed throughout the deep white matter tracts of the cerebral hemispheres, consistent with mild chronic white matter ischemic changes. Normal bilateral basal ganglia. Normal thalami. There is no extra-axial fluid accumulation. Normal flow voids within the major intracranial circulation suggesting patency by spin echo criteria. Normal sella turcica, pituitary gland, infundibular stalk, optic chiasm and hypothalamus. Normal tectal plate and pineal gland. Normal midbrain, james and medulla. Normal cerebellum. Normal basal cisterns. Normal bilateral temporal bones. Normal bilateral internal auditory canals. There is mucosal thickening in the sphenoid, ethmoid, and maxillary sinuses. There is marked sclerosis of the left maxillary sinus collins, which may indicate chronic osteitis. No demonstrated orbital abnormality, within the constraints of a routine brain study. Normal calvarium and skull base. Normal visualized soft tissue structures. Normal visualized upper cervical spine. MRI/Brain without Contrast IMPRESSION: 1. No acute intracranial findings. 2. Mild microvascular ischemic changes. 3. Moderate chronic sinusitis. Electronically Signed: Ann Marie Boudreaux MD at 18:16 EST Tel , Service support ,
[2018-11-04] MEDS: Pantoprazole Sodium 40 MG Tablet PO (09:47)
[2018-11-04] MEDS: Timolol 0.5% 5ML OPTH.BTL 1 DRP EACH EYE ×2 (09:47→20:47)
[2018-11-04] MEDS: Cyanocobalamin 500 MCG Tablet 1000 MCG PO (09:47)
[2018-11-04] MEDS: amLODIPine 5 MG Tablet PO (09:47)
[2018-11-04] MEDS: Enoxaparin 40 MG/0.4 ML Syringe SC (09:48)
--- NOTE | 2018-11-04 12:42 | PCM.CONS.GEN ---
Problem List (1) Pre-syncope Status: Acute Reason for Consult Date of Consultation: 11/04/18 Reason for Consultation: Possible Pre-syncope History of Present Illness: The patient is a 78 year old CF with PMH HTN, Depression, H/O Left Breast cancer s/p mastectomy recent h/o bronchoscopy about 2 weeks ago, found to have MRSA infection, started on Linezolid admitted with possible pre-syncope. Per patient for the past 2 weeks since being on Antibiotics she felt while speaking she would feel that she would be sleepy, would have a feeling of black out, per patient that feeling is difficult to explain, yesterday (11/03/18) had that feeling about 3 times, and also had a fall, was later brought to the ED. Patient and family denies any witnessed seizures, denies any tongue bite, loss of awareness or LOC with these episodes, denies any urinary incontinence per patient. She denies any GONZALEZ, dizziness, focal motor weakness, sensory loss. Per patient her symptoms started only after being on Linezolid and she was taken off her anti depressant by demand equipment repairer. She lives with her , denies any frequent falls, does drive, does not use cane or walker to ambulate and does not need assistance for her ADLs. Patient denies any H/O seizure or syncope in the past. [] Past Medical History Allergies oxycodone HCl [From Percodan] Adverse Reaction (Verified 11/03/18 19:15) Nausea oxycodone terephthalate [From Percodan] Adverse Reaction (Verified 11/03/18 19:15) Nausea Sulfa (Sulfonamide Antibiotics) Adverse Reaction (Verified 11/03/18 19:15) Nausea/Vom/Diarrhea PEROXIDE Adverse Reaction (Uncoded 11/03/18 19:15) IN TOOTHEPASTE- CAUSED BLISTERS. Home Medications: Ambulatory Orders Medication Instructions Recorded ALPRAZolam [Xanax] 0.125 - 0.25 mg PO BID PRN PRN 10/14/15 Amlodipine [Norvasc] 5 mg PO DAILY 10/14/15 Timolol 0.5% [Timoptic] 1 drop EACH EYE BID 10/14/15 Ergocalciferol [Vitamin D] 50,000 unit PO UD 01/26/16 Acetaminophen [Tylenol Extra 500 mg PO QHS 11/03/18 Strength] Cyanocobalamin (Vitamin B-12) 1,000 mcg PO DAILY 11/03/18 [Vitamin B-12] Fexofenadine HCl 180 mg PO DAILY 11/03/18 Flaxseed Oil 1,000 mg PO DAILY 11/03/18 Fluticasone/Vilanterol [Breo 1 puff INHALATION DAILY 11/03/18 Ellipta 200-25 Mcg INH] Linezolid 600 mg PO BID 11/03/18 Omeprazole 40 mg PO DAILY 11/03/18 Surgical History: - - Mastectomy Psychiatric History: Depression 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 history Lives: Spouse/ Significant Other Smoking Status: Never smoker Alcohol: None Drugs: None - *Family History Sibling History Items: Hypertension Maternal History Items: No pertinent history Paternal History Items: No pertinent history Review of Systems Constitutional: Reports: - - complete ROS negative except as doucmented in HPI Patient Problems: Active and Suspected Problems Pre-syncope (Acute) - Physical Exam General: Alert HEENT: Normocephalic Neck: Supple Lungs: Normal air movement Cardiovascular: Normal S1, Normal S2 Abdomen: Bowel Sounds Present Extremities: No cyanosis Neurological: Cranial nerves II-XII grossly intact, Deep Tendon Reflexes 2+/4 and Symmetrical, Neuro grossly intact, Motor Exam 5/5 strength throughout, Muscle tone normal, Sensory exam intact to light touch and pain, Coordination normal Psych/Mental Status: Normal Affect Vital Signs Temp Pulse Resp BP Pulse Ox 98.1 F 80 16 119/55 L 97 11/04/18 08:20 11/04/18 10:59 11/04/18 08:20 11/04/18 08:20 11/04/18 08:27 Oxygen Flow Rate (L/min) 3 Oxygen Delivery Method Room Air Weight: 69.8 kg Body Mass Index (BMI) 32.1 Orthostatic Vital Signs Start: 11/04/18 01:09 Freq: q24h Status: Active Protocol: Activity Type Activity Date Activity User E-Sign Co-Sign Detail Recorded Client Recorded Date Recorded By Document 11/04/18 06:59 [place] [id number] 11/04/18 07:01 [place] 11/04/18 06:59 Orthostatic Vitals Standing -Blood Pressure (90/60-120/80) 149/86 H -Extremity Use Right Arm -Pulse Rate (60-100) 84 Sitting -Blood Pressure (90/60-120/80) 153/84 H -Extremity Use Right Arm -Pulse Rate (60-100) 78 Lying -Blood Pressure (90/60-120/80) 151/68 H -Extremity Use Right Arm -Pulse Rate (60-100) 72 Intake and Output for Last 24 Hours 11/02/18 11/03/18 11/04/18 23:59 23:59 23:59 Intake Total 676 / 676 2306 / 2306 Balance 676 / 676 2306 / 2306 Laboratory Tests Past 24 Hrs 11/03/18 11/03/18 11/04/18 17:09 17:10 06:11 WBC 7.9 5.6 RBC 5.35 4.85 Hgb 15.1 H 13.7 Hct 45.8 41.9 MCV 85.6 86.4 MCH 28.2 28.2 MCHC 33.0 32.7 RDW 13.4 13.5 RDW Differential 41.7 41.5 Plt Count 311 252 MPV 9.5 9.2 Immature Gran % (Auto) 0.300 0.200 Neut % (Auto) 69.7 58.0 Lymph % (Auto) 20.2 30.7 Davis % (Auto) 7.5 7.3 Eos % (Auto) 1.5 2.7 Baso % (Auto) 0.8 1.1 H Absolute Neuts (auto) 5.5 3.3 Absolute Lymphs (auto) 1.60 1.72 Total Counted Not Reportable Not Reportable Sodium 139 Potassium 3.6 Chloride 107 Carbon Dioxide 21.0 Anion Gap 11 BUN 15 Creatinine 1.01 Estim Creat Clear Calc 50.10 Est GFR (MDRD) Af Amer 68 Est GFR (MDRD) Non-Af 56 L BUN/Creatinine Ratio 14.9 Glucose 137 H Calcium 8.6 Troponin I < 0.015 11/04/18 06:11 WBC RBC Hgb Hct MCV MCH MCHC RDW RDW Differential Plt Count MPV Immature Gran % (Auto) Neut % (Auto) Lymph % (Auto) Davis % (Auto) Eos % (Auto) Baso % (Auto) Absolute Neuts (auto) Absolute Lymphs (auto) Total Counted Sodium 145 Potassium 3.9 Chloride 114 H Carbon Dioxide 23.0 Anion Gap 8 BUN 8 Creatinine 0.76 Estim Creat Clear Calc 51.91 Est GFR (MDRD) Af Amer 94 Est GFR (MDRD) Non-Af 78 BUN/Creatinine Ratio 10.5 Glucose 88 Calcium 7.9 L Troponin I Assessment/Plan All Active Problems Pre-syncope (Acute) Pain of right middle finger (Acute) Joint swelling, finger, hand (Acute) Cellulitis of finger (Acute) Nonhealing surgical wound (Acute) The patient is a 78 year old CF with PMH HTN, Depression, H/O Left Breast cancer s/p mastectomy recent h/o bronchoscopy about 2 weeks ago, found to have MRSA infection, started on Linezolid admitted with possible pre-syncope. Per patient for the past 2 weeks since being on Antibiotics she felt while speaking she would feel that she would be sleepy, would have a feeling of black out, per patient that feeling is difficult to explain, yesterday (11/03/18) had that feeling about 3 times, and also had a fall, was later brought to the ED. Patient and family denies any witnessed seizures, denies any tongue bite, loss of awareness or LOC with these episodes, denies any urinary incontinence per patient. She denies any GONZALEZ, dizziness, focal motor weakness, sensory loss. Per patient her symptoms started only after being on Linezolid and she was taken off her anti depressant by demand equipment repairer. She lives with her , denies any frequent falls, does drive, does not use cane or walker to ambulate and does not need assistance for her ADLs. Patient denies any H/O seizure or syncope in the past. Impression Possible [id number] medication induced, r/o cardiac etiology Unlikely to be seizures at present. Plan -Check MRI brain w/o contrast -Check EEG -Would defer change of antibiotic medication and antidepressant to hospitalist and demand equipment repairer -Labs reviewed -Further medical management per hospitalist team -GI/DVT prophylaxis -Fall precautions -PT/OT -Please call with questions if any -Thank you for allowing us to participate in patient's care and management Code Visit Inpatient E&M: [id number] Init Hosp L3
--- NOTE | 2018-11-04 12:46 | CON.PCM_ITS ---
Problem List (1) Pre-syncope Status: Acute Reason for Consult Date of Consultation: 11/04/18 Reason for Consultation: Possible Pre-syncope History of Present Illness: The patient is a 78 year old CF with PMH HTN, Depression, H/O Left Breast cancer s/p mastectomy recent h/o bronchoscopy about 2 weeks ago, found to have MRSA infection, started on Linezolid admitted with possible pre-syncope. Per patient for the past 2 weeks since being on Antibiotics she felt while speaking she would feel that she would be sleepy, would have a feeling of black out, per patient that feeling is difficult to explain, yesterday (11/03/18) had that feeling about 3 times, and also had a fall, was later brought to the ED. Patient and family denies any witnessed seizures, denies any tongue bite, loss of awareness or LOC with these episodes, denies any urinary incontinence per patient. She denies any GONZALEZ, dizziness, focal motor weakness, sensory loss. Per patient her symptoms started only after being on Linezolid and she was taken off her anti depressant by community outreach coordinator. She lives with her , denies any frequent falls, does drive, does not use cane or walker to ambulate and does not need assistance for her ADLs. Patient denies any H/O seizure or syncope in the past. [] Past Medical History Allergies oxycodone HCl [From Percodan] Adverse Reaction (Verified 11/03/18 19:15) Nausea oxycodone terephthalate [From Percodan] Adverse Reaction (Verified 11/03/18 19:15) Nausea Sulfa (Sulfonamide Antibiotics) Adverse Reaction (Verified 11/03/18 19:15) Nausea/Vom/Diarrhea PEROXIDE Adverse Reaction (Uncoded 11/03/18 19:15) IN TOOTHEPASTE- CAUSED BLISTERS. Home Medications: Ambulatory Orders Medication Instructions Recorded ALPRAZolam [Xanax] 0.125 - 0.25 mg PO BID PRN PRN 10/14/15 Amlodipine [Norvasc] 5 mg PO DAILY 10/14/15 Timolol 0.5% [Timoptic] 1 drop EACH EYE BID 10/14/15 Ergocalciferol [Vitamin D] 50,000 unit PO UD 01/26/16 Acetaminophen [Tylenol Extra 500 mg PO QHS 11/03/18 Strength] Cyanocobalamin (Vitamin B-12) 1,000 mcg PO DAILY 11/03/18 [Vitamin B-12] Fexofenadine HCl 180 mg PO DAILY 11/03/18 Flaxseed Oil 1,000 mg PO DAILY 11/03/18 Fluticasone/Vilanterol [Breo 1 puff INHALATION DAILY 11/03/18 Ellipta 200-25 Mcg INH] Linezolid 600 mg PO BID 11/03/18 Omeprazole 40 mg PO DAILY 11/03/18 Surgical History: - - Mastectomy Psychiatric History: Depression 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 AND 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 Lives: Spouse/ Significant Other Smoking Status: Never smoker Alcohol: None Drugs: None - *Family History Sibling History Items: Hypertension Maternal History Items: No pertinent history Paternal History Items: No pertinent history Review of Systems Constitutional: Reports: - - complete ROS negative except as doucmented in HPI Patient Problems: Active and Suspected Problems Pre-syncope (Acute) - Physical Exam General: Alert HEENT: Normocephalic Neck: Supple Lungs: Normal air movement Cardiovascular: Normal S1, Normal S2 Abdomen: Bowel Sounds Present Extremities: No cyanosis Neurological: Cranial nerves II-XII grossly intact, Deep Tendon Reflexes 2+/4 and Symmetrical, Neuro grossly intact, Motor Exam 5/5 strength throughout, Muscle tone normal, Sensory exam intact to light touch and pain, Coordination normal Psych/Mental Status: Normal Affect Vital Signs Temp Pulse Resp BP Pulse Ox 98.1 F 80 16 119/55 L 97 11/04/18 08:20 11/04/18 10:59 11/04/18 08:20 11/04/18 08:20 11/04/18 08:27 Oxygen Flow Rate (L/min) 3 Oxygen Delivery Method Room Air Weight: 69.8 kg Body Mass Index (BMI) 32.1 Orthostatic Vital Signs Start: 11/04/18 01:09 Freq: q24h Status: Active Protocol: Activity Type Activity Date Activity User E-Sign Co-Sign Detail Recorded Client Recorded Date Recorded By Document 11/04/18 06:59 FL [id number] 11/04/18 07:01 FL 11/04/18 06:59 Orthostatic Vitals Standing -Blood Pressure (90/60-120/80) 149/86 H -Extremity Use Right Arm -Pulse Rate (60-100) 84 Sitting -Blood Pressure (90/60-120/80) 153/84 H -Extremity Use Right Arm -Pulse Rate (60-100) 78 Lying -Blood Pressure (90/60-120/80) 151/68 H -Extremity Use Right Arm -Pulse Rate (60-100) 72 Intake and Output for Last 24 Hours 11/02/18 11/03/18 11/04/18 23:59 23:59 23:59 Intake Total 676 / 676 2306 / 2306 Balance 676 / 676 2306 / 2306 Laboratory Tests Past 24 Hrs 11/03/18 11/03/18 11/04/18 17:09 17:10 06:11 WBC 7.9 5.6 RBC 5.35 4.85 Hgb 15.1 H 13.7 Hct 45.8 41.9 MCV 85.6 86.4 MCH 28.2 28.2 MCHC 33.0 32.7 RDW 13.4 13.5 RDW Differential 41.7 41.5 Plt Count 311 252 MPV 9.5 9.2 Immature Gran % (Auto) 0.300 0.200 Neut % (Auto) 69.7 58.0 Lymph % (Auto) 20.2 30.7 [place] % (Auto) 7.5 7.3 Eos % (Auto) 1.5 2.7 Baso % (Auto) 0.8 1.1 H Absolute Neuts (auto) 5.5 3.3 Absolute Lymphs (auto) 1.60 1.72 Total Counted Not Reportable Not Reportable Sodium 139 Potassium 3.6 Chloride 107 Carbon Dioxide 21.0 Anion Gap 11 BUN 15 Creatinine 1.01 Estim Creat Clear Calc 50.10 Est GFR (MDRD) Af Amer 68 Est GFR (MDRD) Non-Af 56 L BUN/Creatinine Ratio 14.9 Glucose 137 H Calcium 8.6 Troponin I < 0.015 11/04/18 06:11 WBC RBC Hgb Hct MCV MCH MCHC RDW RDW Differential Plt Count MPV Immature Gran % (Auto) Neut % (Auto) Lymph % (Auto) [place] % (Auto) Eos % (Auto) Baso % (Auto) Absolute Neuts (auto) Absolute Lymphs (auto) Total Counted Sodium 145 Potassium 3.9 Chloride 114 H Carbon Dioxide 23.0 Anion Gap 8 BUN 8 Creatinine 0.76 Estim Creat Clear Calc 51.91 Est GFR (MDRD) Af Amer 94 Est GFR (MDRD) Non-Af 78 BUN/Creatinine Ratio 10.5 Glucose 88 Calcium 7.9 L Troponin I Assessment/Plan All Active Problems Pre-syncope (Acute) Pain of right middle finger (Acute) Joint swelling, finger, hand (Acute) Cellulitis of finger (Acute) Nonhealing surgical wound (Acute) The patient is a 78 year old CF with PMH HTN, Depression, H/O Left Breast cancer s/p mastectomy recent h/o bronchoscopy about 2 weeks ago, found to have MRSA infection, started on Linezolid admitted with possible pre-syncope. Per patient for the past 2 weeks since being on Antibiotics she felt while speaking she would feel that she would be sleepy, would have a feeling of black out, per patient that feeling is difficult to explain, yesterday (11/03/18) had that feeling about 3 times, and also had a fall, was later brought to the ED. Patient and family denies any witnessed seizures, denies any tongue bite, loss of awareness or LOC with these episodes, denies any urinary incontinence per patient. She denies any GONZALEZ, dizziness, focal motor weakness, sensory loss. Per patient her symptoms started only after being on Linezolid and she was taken off her anti depressant by community outreach coordinator. She lives with her , denies any frequent falls, does drive, does not use cane or walker to ambulate and does not need assistance for her ADLs. Patient denies any H/O seizure or syncope in the past. Impression Possible [id number] medication induced, r/o cardiac etiology Unlikely to be seizures at present. Plan -Check MRI brain w/o contrast -Check EEG -Would defer change of antibiotic medication and antidepressant to hospitalist and community outreach coordinator -Labs reviewed -Further medical management per hospitalist team -GI/DVT prophylaxis -Fall precautions -PT/OT -Please call with questions if any -Thank you for allowing us to participate in patient's care and management Code Visit Inpatient E&M: [id number] Init Hosp L3
--- NOTE | 2018-11-04 15:23 | CM.UR ---
See human performance professor. Met face to face with patient, her spouse and her son. Agreeable to assessment. Patient and family are not anticipating any needs for discharge. her and share home management. She does still drive. They have cleaning lady come in. Instructed case management will remain available should any needs arise. Verb understanding. Brian Beard RN, [facility].
--- NOTE | 2018-11-04 17:21 | PCA ---
Pt. assisted to bathroom per nurse's request. Ambulated well. Once she stood in front of the toilet she was in mid conversation when she slumped over and went flaccid. She sat down onto the toilet and her head was supported by my arm. She responded with gargled and slurred speech and within 5-10 seconds she was responsive and had full recollection of the episode that took place. I then called for assistance. She denied having any warning signs besides feeling like she was going to sleep. She did not hit her head and denied any injuries or pain from the event. She did say she felt lethargic after the episode when comparing it to prior to the episode. She was assisted to the chair after urinating by myself and IKE Mcnally. IKE Mcnally took vital signs and reported the findings to IKE Nichols.
--- NOTE | 2018-11-04 17:34 | PCM.PN.HOSP ---
Patient Problems: Active and Suspected Problems Pre-syncope (Acute) Subjective: History taken from patient, patient's and son near the bedside. Patient had positive MRSA and passed on bronchial washings by Dr. Henson about 3 weeks ago and started on Zyvox which she already took for 3 weeks and 1 more week to go. Patient has history of anxiety and depression motor symptoms of mental cloudiness, decreased awareness, attention deficit got worse the last 3 weeks after starting Zyvox. This was drowsy and lethargic but did not pass out. She also felt like going to fall and near full situation and actually she fell one time witnessed by her Vitals/I&O's: Vital Signs Temp Pulse Resp BP Pulse Ox 98.3 F 85 18 138/81 H 97 11/04/18 14:20 11/04/18 17:17 11/04/18 17:17 11/04/18 17:17 11/04/18 17:17 Oxygen Flow Rate (L/min) 3 Oxygen Delivery Method Room Air Weight: 153 lb 14.122 oz Body Mass Index (BMI) 32.1 Orthostatic Vital Signs Start: 11/04/18 01:09 Freq: q24h Status: Active Protocol: Activity Type Activity Date Activity User E-Sign Co-Sign Detail Recorded Client Recorded Date Recorded By Document 11/04/18 06:59 NV [id number] 11/04/18 07:01 NV 11/04/18 06:59 Orthostatic Vitals Standing -Blood Pressure (90/60-120/80) 149/86 H -Extremity Use Right Arm -Pulse Rate (60-100) 84 Sitting -Blood Pressure (90/60-120/80) 153/84 H -Extremity Use Right Arm -Pulse Rate (60-100) 78 Lying -Blood Pressure (90/60-120/80) 151/68 H -Extremity Use Right Arm -Pulse Rate (60-100) 72 Intake and Output for Last 24 Hours 11/02/18 11/03/18 11/04/18 23:59 23:59 23:59 Intake Total 676 / 676 2306 / 2306 Balance 676 / 676 2306 / 2306 General: Oriented x3, Cooperative, Lethargic, - - Tears in the eyes HEENT: Atraumatic, PERRLA, EOMI, Normocephalic Neck: Supple, No JVD, Negative Carotid Bruits Lungs: Clear to auscultation, No rhonchi, No wheeze, No rales, Diminished - Air entry diminished. Cardiovascular: Regular rate, Regular Rhythm, Normal S1, Normal S2, No murmurs Abdomen: Bowel Sounds Present, Soft, Non Tender, Non-Distended Extremities: No edema, Capillary Refill Less than 3 Seconds Skin: No rashes, No breakdown Musculoskeletal: No Tenderness to Palpation of Joints or Extremities, Arthritic Changes, Muscle Wasting Neurological: Cranial nerves II-XII grossly intact, - - Lethargic, patient had falls. Psych/Mental Status: Normal Affect, Appropriate Laboratory Results 11/03/18 17:09: Sodium 139, Potassium 3.6, Chloride 107, Carbon Dioxide 21.0, Anion Gap 11, BUN 15, Creatinine 1.01, Estim Creat Clear Calc 50.10, Est GFR (MDRD) Af Amer 68, Est GFR (MDRD) Non-Af 56 L, BUN/Creatinine Ratio 14.9, Glucose 137 H, Calcium 8.6, Troponin I < 0.015 11/03/18 17:10: WBC 7.9, RBC 5.35, Hgb 15.1 H, Hct 45.8, MCV 85.6, MCH 28.2, MCHC 33.0, RDW 13.4, RDW Differential 41.7, Plt Count 311, MPV 9.5, Immature Gran % (Auto) 0.300, Neut % (Auto) 69.7, Lymph % (Auto) 20.2, [place] % (Auto) 7.5, Eos % (Auto) 1.5, Baso % (Auto) 0.8, Absolute Neuts (auto) 5.5, Absolute Lymphs (auto) 1.60, Total Counted Not Reportable 11/04/18 06:11: WBC 5.6, RBC 4.85, Hgb 13.7, Hct 41.9, MCV 86.4, MCH 28.2, MCHC 32.7, RDW 13.5, RDW Differential 41.5, Plt Count 252, MPV 9.2, Immature Gran % (Auto) 0.200, Neut % (Auto) 58.0, Lymph % (Auto) 30.7, [place] % (Auto) 7.3, Eos % (Auto) 2.7, Baso % (Auto) 1.1 H, Absolute Neuts (auto) 3.3, Absolute Lymphs (auto) 1.72, Total Counted Not Reportable 11/04/18 06:11: Sodium 145, Potassium 3.9, Chloride 114 H, Carbon Dioxide 23.0, Anion Gap 8, BUN 8, Creatinine 0.76, Estim Creat Clear Calc 51.91, Est GFR (MDRD) Af Amer 94, Est GFR (MDRD) Non-Af 78, BUN/Creatinine Ratio 10.5, Glucose 88, Calcium 7.9 L Current Medications Acetaminophen (Tylenol) 500 mg PO QHS [facility] Last Admin: 11/03/18 20:57 Dose: 500 mg Albuterol Sulfate (Ventolin Aerosols) 2.5 mg INHALATION Q6HWA.RT [facility] Last Admin: 11/04/18 12:43 Dose: Not Given Alprazolam (Xanax) 0.125 mg PO BID PRN PRN PRN Reason: ANXIETY Amlodipine Besylate (Norvasc) 5 mg PO DAILY [facility] Last Admin: 11/04/18 09:47 Dose: 5 mg Budesonide (Pulmicort Aerosol) 0.5 mg INHALATION Q12H.RT [facility] Last Admin: 11/04/18 06:47 Dose: 0.5 mg Cyanocobalamin (Vitamin B12) 1,000 mcg PO DAILYCM [facility] Last Admin: 11/04/18 09:47 Dose: 1,000 mcg Enoxaparin Sodium (Lovenox) 40 mg SC DAILY@1000 [facility] Last Admin: 11/04/18 09:48 Dose: 40 mg Ergocalciferol (Vitamin D) 50,000 unit PO Q14D [facility] Sodium Chloride () 1,000 mls @ 150 mls/hr IV .Q6H40M [facility] Last Admin: 11/04/18 14:38 Dose: 150 mls/hr Magnesium Hydroxide (Milk Of Magnesia) 30 ml PO DAILY PRN PRN PRN Reason: Constipation Pantoprazole Sodium (Protonix) 40 mg PO DAILY [facility] Last Admin: 11/04/18 09:47 Dose: 40 mg Sodium Chloride () 5 - 15 ml IV UD PRN PRN Reason: SALINE FLUSH Timolol Maleate (Timoptic) 1 drop EACH EYE BID [facility] Last Admin: 11/04/18 09:47 Dose: 1 drop Medical Necessity - Tobacco Use Smoking Status: Never smoker Assessment/Plan All Active Problems Pre-syncope (Acute) Pain of right middle finger (Acute) Joint swelling, finger, hand (Acute) Cellulitis of finger (Acute) Nonhealing surgical wound (Acute) This is a 78-year-old female with history of hypertension and depression, on Effexor, dose unclear but recently discontinued after she was started on Zyvox for MRSA pneumonia about 3 weeks ago was admitted with near syncope, lethargic, decreased awareness and altered mental status. She also some stiffness on the right side of face. NAD, CBC and BMP was also unremarkable. Brain CT showed stable atrophy and areas of decreased attenuation in white matter tracts of supratentorial brain consistent with microvascular disease changes. CT of the cervical spine showed no definite acute fracture or dislocation and only showed degenerative changes. Chest x-ray showed no acute cardio pulmonary process. She was further admitted on PCU for near syncope/rule out seizure. 1. near syncope most probably secondary to medication withdrawal Effexor, exacerbated by linezolid: Avoid drug drug interaction of medication with linezolid to avoid serotonin syndrome. Patient was on fexofenadine which is discontinued. He advised MRI brain, EEG. Orthostatic vitals does not show change. On IV fluid normal saline. 2. Hypertension: fairly controlled; on amlodipine 3. MRSA lung infection: Currently continue linezolid. As per the patient, bronchoscopy showed pus and diffuse infection was advised 4 weeks of Zyvox. 4. Depression and anxiety, probably withdrawal symptoms of antidepressants: States antidepressant was stopped by her can dryer on account of her starting Zyvox. Will monitor. DVT prophylaxis: heparin Clinical Impression(s) from Imaging Studies Brain CT 11/03/18 17:11 IMPRESSION: Stable atrophy and white matter disease with no acute abnormality. Cervical Spine CT 11/03/18 17:11 IMPRESSION: There is no definite acute fracture/dislocation. Degenerative changes. Chest X-Ray 11/03/18 17:25 IMPRESSION: No acute chest disease. Laboratory Results 11/03/18 17:09: Sodium 139, Potassium 3.6, Chloride 107, Carbon Dioxide 21.0, Anion Gap 11, BUN 15, Creatinine 1.01, Estim Creat Clear Calc 50.10, Est GFR (MDRD) Af Amer 68, Est GFR (MDRD) Non-Af 56 L, BUN/Creatinine Ratio 14.9, Glucose 137 H, Calcium 8.6, Troponin I < 0.015 11/04/18 06:11: WBC 5.6, RBC 4.85, Hgb 13.7, Hct 41.9, MCV 86.4, MCH 28.2, MCHC 32.7, RDW 13.5, RDW Differential 41.5, Plt Count 252, MPV 9.2, Immature Gran % (Auto) 0.200, Neut % (Auto) 58.0, Lymph % (Auto) 30.7, [place] % (Auto) 7.3, Eos % (Auto) 2.7, Baso % (Auto) 1.1 H, Absolute Neuts (auto) 3.3, Absolute Lymphs (auto) 1.72, Total Counted Not Reportable 11/04/18 06:11: Sodium 145, Potassium 3.9, Chloride 114 H, Carbon Dioxide 23.0, Anion Gap 8, BUN 8, Creatinine 0.76, Estim Creat Clear Calc 51.91, Est GFR (MDRD) Af Amer 94, Est GFR (MDRD) Non-Af 78, BUN/Creatinine Ratio 10.5, Glucose 88, Calcium 7.9 L Code Visit Inpatient E&M: [id number] Subs Hosp L3
--- NOTE | 2018-11-04 17:40 | PN_ITS ---
Patient Problems: Active and Suspected Problems Pre-syncope (Acute) Subjective: History taken from patient, patient's and son near the bedside. Patient had positive MRSA and passed on bronchial washings by Dr. Henson about 3 weeks ago and started on Zyvox which she already took for 3 weeks and 1 more week to go. Patient has history of anxiety and depression motor symptoms of mental cloudiness, decreased awareness, attention deficit got worse the last 3 weeks after starting Zyvox. This was drowsy and lethargic but did not pass out. She also felt like going to fall and near full situation and actually she fell one time witnessed by her Vitals/I&O's: Vital Signs Temp Pulse Resp BP Pulse Ox 98.3 F 85 18 138/81 H 97 11/04/18 14:20 11/04/18 17:17 11/04/18 17:17 11/04/18 17:17 11/04/18 17:17 Oxygen Flow Rate (L/min) 3 Oxygen Delivery Method Room Air Weight: 153 lb 14.122 oz Body Mass Index (BMI) 32.1 Orthostatic Vital Signs Start: 11/04/18 01:09 Freq: q24h Status: Active Protocol: Activity Type Activity Date Activity User E-Sign Co-Sign Detail Recorded Client Recorded Date Recorded By Document 11/04/18 06:59 CO [id number] 11/04/18 07:01 CO 11/04/18 06:59 Orthostatic Vitals Standing -Blood Pressure (90/60-120/80) 149/86 H -Extremity Use Right Arm -Pulse Rate (60-100) 84 Sitting -Blood Pressure (90/60-120/80) 153/84 H -Extremity Use Right Arm -Pulse Rate (60-100) 78 Lying -Blood Pressure (90/60-120/80) 151/68 H -Extremity Use Right Arm -Pulse Rate (60-100) 72 Intake and Output for Last 24 Hours 11/02/18 11/03/18 11/04/18 23:59 23:59 23:59 Intake Total 676 / 676 2306 / 2306 Balance 676 / 676 2306 / 2306 General: Oriented x3, Cooperative, Lethargic, - - Tears in the eyes HEENT: Atraumatic, PERRLA, EOMI, Normocephalic Neck: Supple, No JVD, Negative Carotid Bruits Lungs: Clear to auscultation, No rhonchi, No wheeze, No rales, Diminished - Air entry diminished. Cardiovascular: Regular rate, Regular Rhythm, Normal S1, Normal S2, No murmurs Abdomen: Bowel Sounds Present, Soft, Non Tender, Non-Distended Extremities: No edema, Capillary Refill Less than 3 Seconds Skin: No rashes, No breakdown Musculoskeletal: No Tenderness to Palpation of Joints or Extremities, Arthritic Changes, Muscle Wasting Neurological: Cranial nerves II-XII grossly intact, - - Lethargic, patient had falls. Psych/Mental Status: Normal Affect, Appropriate Laboratory Results 11/03/18 17:09: Sodium 139, Potassium 3.6, Chloride 107, Carbon Dioxide 21.0, Anion Gap 11, BUN 15, Creatinine 1.01, Estim Creat Clear Calc 50.10, Est GFR (MDRD) Af Amer 68, Est GFR (MDRD) Non-Af 56 L, BUN/Creatinine Ratio 14.9, Glucose 137 H, Calcium 8.6, Troponin I < 0.015 11/03/18 17:10: WBC 7.9, RBC 5.35, Hgb 15.1 H, Hct 45.8, MCV 85.6, MCH 28.2, MCHC 33.0, RDW 13.4, RDW Differential 41.7, Plt Count 311, MPV 9.5, Immature Gran % (Auto) 0.300, Neut % (Auto) 69.7, Lymph % (Auto) 20.2, [place] % (Auto) 7.5, Eos % (Auto) 1.5, Baso % (Auto) 0.8, Absolute Neuts (auto) 5.5, Absolute Lymphs (auto) 1.60, Total Counted Not Reportable 11/04/18 06:11: WBC 5.6, RBC 4.85, Hgb 13.7, Hct 41.9, MCV 86.4, MCH 28.2, MCHC 32.7, RDW 13.5, RDW Differential 41.5, Plt Count 252, MPV 9.2, Immature Gran % (Auto) 0.200, Neut % (Auto) 58.0, Lymph % (Auto) 30.7, [place] % (Auto) 7.3, Eos % (Auto) 2.7, Baso % (Auto) 1.1 H, Absolute Neuts (auto) 3.3, Absolute Lymphs (auto) 1.72, Total Counted Not Reportable 11/04/18 06:11: Sodium 145, Potassium 3.9, Chloride 114 H, Carbon Dioxide 23.0, Anion Gap 8, BUN 8, Creatinine 0.76, Estim Creat Clear Calc 51.91, Est GFR (MDRD) Af Amer 94, Est GFR (MDRD) Non-Af 78, BUN/Creatinine Ratio 10.5, Glucose 88, Calcium 7.9 L Current Medications Acetaminophen (Tylenol) 500 mg PO QHS [facility] Last Admin: 11/03/18 20:57 Dose: 500 mg Albuterol Sulfate (Ventolin Aerosols) 2.5 mg INHALATION Q6HWA.RT [facility] Last Admin: 11/04/18 12:43 Dose: Not Given Alprazolam (Xanax) 0.125 mg PO BID PRN PRN PRN Reason: ANXIETY Amlodipine Besylate (Norvasc) 5 mg PO DAILY [facility] Last Admin: 11/04/18 09:47 Dose: 5 mg Budesonide (Pulmicort Aerosol) 0.5 mg INHALATION Q12H.RT [facility] Last Admin: 11/04/18 06:47 Dose: 0.5 mg Cyanocobalamin (Vitamin B12) 1,000 mcg PO DAILYCM [facility] Last Admin: 11/04/18 09:47 Dose: 1,000 mcg Enoxaparin Sodium (Lovenox) 40 mg SC DAILY@1000 [facility] Last Admin: 11/04/18 09:48 Dose: 40 mg Ergocalciferol (Vitamin D) 50,000 unit PO Q14D [facility] Sodium Chloride () 1,000 mls @ 150 mls/hr IV .Q6H40M [facility] Last Admin: 11/04/18 14:38 Dose: 150 mls/hr Magnesium Hydroxide (Milk Of Magnesia) 30 ml PO DAILY PRN PRN PRN Reason: Constipation Pantoprazole Sodium (Protonix) 40 mg PO DAILY [facility] Last Admin: 11/04/18 09:47 Dose: 40 mg Sodium Chloride () 5 - 15 ml IV UD PRN PRN Reason: SALINE FLUSH Timolol Maleate (Timoptic) 1 drop EACH EYE BID [facility] Last Admin: 11/04/18 09:47 Dose: 1 drop Medical Necessity - Tobacco Use Smoking Status: Never smoker Assessment/Plan All Active Problems Pre-syncope (Acute) Pain of right middle finger (Acute) Joint swelling, finger, hand (Acute) Cellulitis of finger (Acute) Nonhealing surgical wound (Acute) This is a 78-year-old female with history of hypertension and depression, on Effexor, dose unclear but recently discontinued after she was started on Zyvox for MRSA pneumonia about 3 weeks ago was admitted with near syncope, lethargic, decreased awareness and altered mental status. She also some stiffness on the right side of face. NAD, CBC and BMP was also unremarkable. Brain CT showed stable atrophy and areas of decreased attenuation in white matter tracts of supratentorial brain consistent with microvascular disease changes. CT of the cervical spine showed no definite acute fracture or dislocation and only showed degenerative changes. Chest x-ray showed no acute cardio pulmonary process. She was further admitted on PCU for near syncope/rule out seizure. 1. near syncope most probably secondary to medication withdrawal Effexor, exac erbated by linezolid: Avoid drug drug interaction of medication with linezolid to avoid serotonin syndrome. Patient was on fexofenadine which is discontinued. He advised MRI brain, EEG. Orthostatic vitals does not show change. On IV fluid normal saline. 2. Hypertension: fairly controlled; on amlodipine 3. MRSA lung infection: Currently continue linezolid. As per the patient, bronchoscopy showed pus and diffuse infection was advised 4 weeks of Zyvox. 4. Depression and anxiety, probably withdrawal symptoms of antidepressants: States antidepressant was stopped by her booth usher on account of her starting Zyvox. Will monitor. DVT prophylaxis: heparin Clinical Impression(s) from Imaging Studies Brain CT 11/03/18 17:11 IMPRESSION: Stable atrophy and white matter disease with no acute abnormality. Cervical Spine CT 11/03/18 17:11 IMPRESSION: There is no definite acute fracture/dislocation. Degenerative changes. Chest X-Ray 11/03/18 17:25 IMPRESSION: No acute chest disease. Laboratory Results 11/03/18 17:09: Sodium 139, Potassium 3.6, Chloride 107, Carbon Dioxide 21.0, Anion Gap 11, BUN 15, Creatinine 1.01, Estim Creat Clear Calc 50.10, Est GFR (MDRD) Af Amer 68, Est GFR (MDRD) Non-Af 56 L, BUN/Creatinine Ratio 14.9, Glucose 137 H, Calcium 8.6, Troponin I < 0.015 11/04/18 06:11: WBC 5.6, RBC 4.85, Hgb 13.7, Hct 41.9, MCV 86.4, MCH 28.2, MCHC 32.7, RDW 13.5, RDW Differential 41.5, Plt Count 252, MPV 9.2, Immature Gran % (Auto) 0.200, Neut % (Auto) 58.0, Lymph % (Auto) 30.7, [place] % (Auto) 7.3, Eos % (Auto) 2.7, Baso % (Auto) 1.1 H, Absolute Neuts (auto) 3.3, Absolute Lymphs (auto) 1.72, Total Counted Not Reportable 11/04/18 06:11: Sodium 145, Potassium 3.9, Chloride 114 H, Carbon Dioxide 23.0, Anion Gap 8, BUN 8, Creatinine 0.76, Estim Creat Clear Calc 51.91, Est GFR (MDRD) Af Amer 94, Est GFR (MDRD) Non-Af 78, BUN/Creatinine Ratio 10.5, Glucose 88, Calcium 7.9 L Code Visit Inpatient E&M: 29293 Subs Hosp L3
[2018-11-04] MEDS: Acetaminophen 500 MG Tablet PO (20:47)
--- NOTE | 2018-11-04 20:50 | NURSING ---
Pt requesting meds a little early while RN in room. Pt fatigued.
[2018-11-05 03:00] VITALS: BP 129/101; BP 134/80; BP 139/69; PULSE 65; PULSE 72; PULSE 75; RESP 18; TEMP 36.6; O2SAT 98
[2018-11-05 03:20] VITALS: PULSE 66
[2018-11-05] MEDS: 0.9% Normal Saline 1,000 ML 150 ML IV (03:33)
[2018-11-05] MEDS: Budesonide Respules 0.5 MG/2 ML AMPUL.NEB. INHALATION (06:57)
[2018-11-05] MEDS: Albuterol 2.5 MG/3 ML VIAL.NEB. INHALATION (06:57)
[2018-11-05 07:00] VITALS: PULSE 66
[2018-11-05 07:02] LABS: Absolute Lymphocyte Count 1.62 X10^3/ul (0.83-4.51); Absolute Neutrophil Count 2.8 X10^3/uL (2.0-7.7); Basophil# 0.04 X10^3/uL; Basophil% 0.8 % (0-1); Eosinophils% 3.8 % (0-5); Hematocrit 40.3 % (37-47); Lymphocyte # 1.62 X10^3/ul (4.0); Lymphocyte % 31.2 % (19-41); Mean Corp Hgb Conc 32.3 g/gl (32-36); Mean Corpuscular Hgb 27.8 pg (27.0-32.0); Mean Corpuscular Volume 86.3 fL (81-99); Mean Platelet Vol. 9.1 fl (6.2-12.0); Monocyte# 0.51 X10^3/uL; Monocyte% 9.8 % (0-10); Neutrophil # 2.83 X10^3/uL (2.7-7.7); Neutrophil % 54.4 % (47-70); Platelet Count 214 K/mm3 (150-450); RBC Distribution Width CV 13.5 % (11.6-14.6); RBC Distribution Width SD 42.7 fl (35.1-43.9); Red Blood Count 4.67 M/mm3 (4.2-5.4); White Blood Count 5.2 K/mm3 (4.4-11.0)
[2018-11-05 07:10] VITALS: PULSE 84; RESP 18
[2018-11-05 07:12] LABS: POSITIVE COUNT NO; POSITIVE DIFFERENTIAL NO; POSITIVE MORPHOLOGY NO
[2018-11-05 07:25] LABS: Anion Gap 8 (5-15); BUN 6 mg/dL (7-18); BUN/Creat Ratio 9.2 RATIO (10-20); Calcium,Total 7.9 mg/dL (8.5-10.1); Chloride 114 mmol/L (98-107); Creatinine, Serum 0.65 mg/dL (0.55-1.02); EST Glomerular Filtration Rate 94 mL/min (>60); Est Glom Filt Rate - Afr Amer 113 mL/min (>60); Estimated Creatinine Clearance 51.91 ml/min; Glucose 80 mg/dL (74-106); Potassium 3.5 mmol/L (3.5-5.1); Sodium Level 146 mmol/L (136-145)
[2018-11-05 09:00] VITALS: BP 155/81; PULSE 88; RESP 18; TEMP 36.6; O2SAT 96
[2018-11-05] MEDS: Cyanocobalamin 500 MCG Tablet 1000 MCG PO (09:07)
[2018-11-05] MEDS: amLODIPine 5 MG Tablet PO (09:08)
[2018-11-05] MEDS: Enoxaparin 40 MG/0.4 ML Syringe SC (09:08)
[2018-11-05] MEDS: Pantoprazole Sodium 40 MG Tablet PO (09:08)
[2018-11-05] MEDS: Timolol 0.5% 5ML OPTH.BTL 1 DRP EACH EYE (09:08)
--- NOTE | 2018-11-05 09:33 | DCINST_ITS ---
- Discharge Diagnoses Current Active Problems: Current Active and Chronic Problems Pre-syncope (Acute) You will use the following diet at home:: Cardiac Call your doctor if you observe: Fever of 101 or Higher, Inability to have a bowel movement, Shortness of breath, Dizziness, Fainting spells, Chest pain, Increased palpitations (irregular heartbeat) Allergies/Adverse Reactions: Allergies oxycodone HCl [From Percodan] Adverse Reaction (Verified 11/03/18 19:15) Nausea oxycodone terephthalate [From Percodan] Adverse Reaction (Verified 11/03/18 19:15) Nausea Sulfa (Sulfonamide Antibiotics) Adverse Reaction (Verified 11/03/18 19:15) Nausea/Vom/Diarrhea PEROXIDE Adverse Reaction (Uncoded 11/03/18 19:15) IN TOOTHEPASTE- CAUSED BLISTERS. Medications to take at Discharge ALPRAZolam [Xanax] 0.125 - 0.25 mg PO BID PRN PRN 10/14/15 Amlodipine [Norvasc] 5 mg PO DAILY 10/14/15 Timolol 0.5% [Timoptic] 1 drop EACH EYE BID 10/14/15 Ergocalciferol [Vitamin D] 50,000 unit PO UD 01/26/16 Acetaminophen [Tylenol Extra Strength] 500 mg PO QHS 11/03/18 Cyanocobalamin (Vitamin B-12) [Vitamin B-12] 1,000 mcg PO DAILY 11/03/18 Flaxseed Oil 1,000 mg PO DAILY 11/03/18 Fluticasone/Vilanterol [Breo Ellipta 200-25 Mcg INH] 1 puff INHALATION DAILY 11/03/18 Omeprazole 40 mg PO DAILY 11/03/18 Doxycycline 100 mg PO BID #20 cap 11/05/18 Fexofenadine HCl 180 mg PO DAILY #1 tablet 11/05/18 The following prescriptions were given: Fexofenadine HCl 180 mg PO DAILY #1 tablet Doxycycline 100 mg PO BID #20 cap Primary Care Physician: Kristal Gutierrez MD [Primary Care Provider] - Please follow up with your Primary Care Physician in: in 2 week Test Results: Test results from this visit will be discussed in further detail at your follow- up appointment, if applicable. Please Follow Up With: Addi Henson MD When: in 2 weeks
--- NOTE | 2018-11-05 11:33 | PCM.DC.SUM ---
Discharge Date and Diagnosis Date of Admission: 11/03/18 Date of Discharge: 11/05/18 - Primary Discharge Diagnosis Active and Suspected Problems Pre-syncope (Acute) Hospital Course and Treatment Summary of Care Provided: [] This is a 78-year-old female with history of hypertension and depression, on Effexor, dose unclear but recently discontinued after she was started on Zyvox for MRSA pneumonia about 3 weeks ago was admitted with near syncope, lethargic, decreased awareness and altered mental status. She also some stiffness on the right side of face. NAD, CBC and BMP was also unremarkable. Brain CT showed stable atrophy and areas of decreased attenuation in white matter tracts of supratentorial brain consistent with microvascular disease changes. CT of the cervical spine showed no definite acute fracture or dislocation and only showed degenerative changes. Chest x-ray showed no acute cardio pulmonary process. She was further admitted on PCU for near syncope/rule out seizure. 1. near syncope most probably secondary to medication withdrawal Effexor, exacerbated by linezolid: Avoid drug drug interaction of medication with linezolid to avoid serotonin syndrome. In view of increased symptoms of lethargic, zoning out and decreased awareness most probably secondary to linezolid it was decided to discontinue it. Patient agrees with that. As per the BAL culture report, MRSA sensitive to doxycycline. Patient had CT scan done outside in [facility] the report is not available. It is hard to get report because of Tuesday and holidays. Prescription for doxycycline for 10 more days was given. There is no significant drug and drug interaction with fexofenadine. MRI brain shows no acute intracranial findings but moderate chronic sinusitis. 2. Hypertension: fairly controlled; on amlodipine 3. MRSA pneumonia: On further review of record, patient had bronchoscopy on 10/18/2018 which reported as edema present in anterior segment of right upper lobe. Chronic bronchitis. Mucus plugging on the anterior segment of left upper lobe. MRSA sensitive to doxycycline and Bactrim DS. 4. Depression and anxiety, probably withdrawal symptoms of antidepressants: States antidepressant, Effexor was stopped by her production roustabout on account of her starting Zyvox. DVT prophylaxis: heparin Patient agrees with discontinuation of linezolid and is starting doxycycline. Patient was advised to follow Dr. Henson in 1-[address] Henson on his phone 2 times but he did not respond. received from his office and he has signed out to no one until November 20. Discharge medication reconciliation done. Discharge follow-up instructions completed. Discharge process discussed with the patient. Total time spent, exact 35 minutes on discharge meds reconciliation, examination, review of imaging and blood test and discussion with the patient on follow-up instructions. Clinical Impression(s) from Imaging Studies Brain CT 11/03/18 17:11 IMPRESSION: Stable atrophy and white matter disease with no acute abnormality. Cervical Spine CT 11/03/18 17:11 IMPRESSION: There is no definite acute fracture/dislocation. Degenerative changes. Chest X-Ray 11/03/18 17:25 IMPRESSION: No acute chest disease. Subjective: Seen and examined. Patient is more awake and alert. Patient had positive MRSA and passed on bronchial washings by Dr. Henson on 10/18/2018 and started on Zyvox which she already took for 2.5 weeks and about 10 days left. patient has history of anxiety and depression motor symptoms of mental cloudiness, decreased awareness, attention deficit got worse the last 3 weeks after starting Zyvox. While sitting on the toilet seat on 11/04/2018, patient head slumped forward but did not pass out. It is more like spacing out Objective: General: Oriented x3, Cooperative, awake and alert. Prompt respond. Reaction time has improved. According to speech HEENT: Atraumatic, PERRLA, EOMI, Normocephalic Neck: Supple, No JVD, Negative Carotid Bruits Lungs: Clear to auscultation, No rhonchi, No wheeze, No rales, air entry diminished bilaterally. Cardiovascular: Regular rate, Regular Rhythm, Normal S1, Normal S2, No murmurs Abdomen: Bowel Sounds Present, Soft, Non Tender, Non-Distended Extremities: No edema, Capillary Refill Less than 3 Seconds Skin: No rashes, No breakdown Musculoskeletal: No Tenderness to Palpation of Joints or Extremities, Arthritic Changes, Muscle Wasting Neurological: Cranial nerves II-XII grossly intact, - - Lethargic, patient had falls. Psych/Mental Status: Normal Affect, Appropriate - Physical Exam Vital Signs Temp Pulse Resp BP Pulse Ox 97.8 F 88 18 155/81 H 96 11/05/18 09:00 11/05/18 09:00 11/05/18 09:00 11/05/18 09:00 11/05/18 09:00 Oxygen Flow Rate (L/min) 3 Oxygen Delivery Method Room Air Weight: 153 lb 14.122 oz Body Mass Index (BMI) 32.1 Orthostatic Vital Signs Start: 11/04/18 01:09 Freq: q24h Status: Active Protocol: Activity Type Activity Date Activity User E-Sign Co-Sign Detail Recorded Client Recorded Date Recorded By Document 11/05/18 03:00 [facility] [id number] 11/05/18 03:12 [facility] 11/05/18 03:00 Orthostatic Vitals Standing -Blood Pressure (90/60-120/80) 134/80 H -Extremity Use Right Arm -Pulse Rate (60-100) 75 Sitting -Blood Pressure (90/60-120/80) 129/101 H -Extremity Use Right Arm -Pulse Rate (60-100) 72 Lying -Blood Pressure (90/60-120/80) 139/69 H -Extremity Use Right Arm -Pulse Rate (60-100) 65 Intake and Output for Last 24 Hours 11/03/18 11/04/18 11/05/18 23:59 23:59 23:59 Intake Total 676 / 676 3633 / 3633 1999 Balance 676 / 676 3633 / 3633 1999 Laboratory Tests Past 24 Hrs 11/05/18 11/05/18 06:02 06:02 WBC 5.2 RBC 4.67 Hgb 13.0 Hct 40.3 MCV 86.3 MCH 27.8 MCHC 32.3 RDW 13.5 RDW Differential 42.7 Plt Count 214 MPV 9.1 Immature Gran % (Auto) 0.000 Neut % (Auto) 54.4 Lymph % (Auto) 31.2 [place] % (Auto) 9.8 Eos % (Auto) 3.8 Baso % (Auto) 0.8 Absolute Neuts (auto) 2.8 Absolute Lymphs (auto) 1.62 Total Counted Not Reportable Sodium 146 H Potassium 3.5 Chloride 114 H Carbon Dioxide 24.0 Anion Gap 8 BUN 6 L Creatinine 0.65 Estim Creat Clear Calc 51.91 Est GFR (MDRD) Af Amer 113 Est GFR (MDRD) Non-Af 94 BUN/Creatinine Ratio 9.2 L Glucose 80 Calcium 7.9 L Call your doctor if you observe: Fever of 101 or Higher, Inability to have a bowel movement, Shortness of breath, Dizziness, Fainting spells, Chest pain, Increased palpitations (irregular heartbeat) Home Medications: Medications to take at Discharge ALPRAZolam [Xanax] 0.125 - 0.25 mg PO BID PRN PRN 10/14/15 Amlodipine [Norvasc] 5 mg PO DAILY 10/14/15 Timolol 0.5% [Timoptic] 1 drop EACH EYE BID 10/14/15 Ergocalciferol [Vitamin D] 50,000 unit PO UD 01/26/16 Acetaminophen [Tylenol Extra Strength] 500 mg PO QHS 11/03/18 Cyanocobalamin (Vitamin B-12) [Vitamin B-12] 1,000 mcg PO DAILY 11/03/18 Flaxseed Oil 1,000 mg PO DAILY 11/03/18 Fluticasone/Vilanterol [Breo Ellipta 200-25 Mcg INH] 1 puff INHALATION DAILY 11/03/18 Omeprazole 40 mg PO DAILY 11/03/18 Doxycycline 100 mg PO BID #20 cap 11/05/18 Fexofenadine HCl 180 mg PO DAILY #1 tablet 11/05/18 Following Prescrptions Were Given to Patient: Fexofenadine HCl 180 mg PO DAILY #1 tablet Doxycycline 100 mg PO BID #20 cap Primary Care Physician: Kristal Gutierrez MD [Primary Care Provider] - Please follow up with your Primary Care Physician in: in 2 week Please Follow Up With: Addi Henson MD When: in 2 weeks Medical Necessity - Tobacco Use Smoking Status: Never smoker Meaningful Use Info Meaningful Use Diagnoses (Choose all that apply): None applicable Code Visit Inpatient E&M: 42066 Disch Hosp
--- NOTE | 2018-11-05 13:34 | NURSING ---
REVIEWED Anupama MAGAÑA CHARTING.
--- NOTE | 2018-11-06 13:42 | EEG ---
- Electroencephalogram Date of service 11/04/2018 History EEG is being done in this 78 yr F to rule out seizures EEG Description: This is an 18 channel EEG with 10-20 lead placement system. Bipolar montages, Referential and Circumferential montages were reviewed. Photic stimulation and Hyperventilation were performed. The posterior dominant rhythm is 8 HZ synchronous, symmetric, reacting to eye opening and closing. Photo stimulation elicited normal driving response but no abnormal photoparoxysmal response, Hyperventilation did not elicit any abnormal photoparoxysmal response. Sleep was identified. There is no abnormal background slowing noted. There was no epileptiform discharges or electrographic seizures noted during this recording. EKG artefact noted during the record. EEG Interpretation This is a normal awake and asleep EEG. There is no epileptiform discharges or electrographic seizures noted during the record.
== END 2018-11-05 09:32 | disposition home or self-care (01) ==
LOC: ED 18:15 → PCU 19:50
PROVIDERS: Admitting Provider Student in an Organized Health Care Education/Training Program; Emergency Provider Emergency Medicine; Family Provider Internal Medicine; PCP Internal Medicine; Visit Provider Internal Medicine
DX: R55 Syncope and collapse (principal); K21.9 Gastro-esophageal reflux disease without esophagitis; I10 Essential (primary) hypertension; Z85.3 Personal history of malignant neoplasm of breast; Z79.899 Other long term (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 therapy; Z79.51 Long term (current) use of inhaled steroids; F32.9 Major depressive disorder, single episode, unspecified; J15.212 Pneumonia due to Methicillin resistant Staphylococcus aureus; F41.9 Anxiety disorder, unspecified
CPT/HCPCS: 36415; 70450; 70551; 71045; 72125; 80048; 84484; 85025; 93005; 94640; 95819; 96360; 96361; 96372; 97161; 97166; 97802; 99218; 99285; J7030; A4216; G0378

== ENCOUNTER → 2018-11-21 09:41 | Outpatient (CLI) | payer MEDICARE, OTHER, SELFPAY ==
[2018-11-03 20:34] VITALS: BMI 32.1
--- NOTE | 2018-11-21 09:54 | RAD_ITS ---
HISTORY: TREATED FOR RIGHT LUNG INFECTION;H/O LEFT BREAST CA EXAM/TECHNIQUE: XR Chest 2 Views: COMPARISON: 11/03/18 chest radiograph. FINDINGS: # of images incl. paperwork: 2 Patchy opacities in the periphery of the right mid and upper lung persist, and appears slightly worse compared to previous. The left lung is clear. Again demonstrated is a tortuous and ectatic thoracic aorta. Heart size within normal limits. Chronic changes of left mastectomy and axillary surgical clips again demonstrated. RAD/Chest PA and Lateral IMPRESSION: Findings suspicious for slight interval progression of smoldering right-sided pneumonia. Noninfectious etiologies are possible but less likely. CT chest would better visualize the lung disease if it would be clinically helpful to do so. at 0840 Reported and signed by: Kalia San MD Electronically Signed: Kalia San, at 8:39 EST Tel , Service support ,
== END ==
PROVIDERS: Family Provider Internal Medicine; PCP Internal Medicine; Referring Provider Internal Medicine Pulmonary Disease; Visit Provider Internal Medicine Pulmonary Disease
DX: J47.9 Bronchiectasis, uncomplicated (principal)
CPT/HCPCS: 71046

== ENCOUNTER → 2018-11-27 09:25 | Outpatient (CLI) | payer MEDICARE, OTHER, SELFPAY ==
[2018-11-03 20:34] VITALS: BMI 32.1
== END ==
PROVIDERS: Family Provider Internal Medicine; PCP Internal Medicine; Referring Provider Internal Medicine Pulmonary Disease; Visit Provider Internal Medicine Pulmonary Disease
DX: R05 Cough (principal); J47.9 Bronchiectasis, uncomplicated
CPT/HCPCS: 87070; 87205

== ENCOUNTER → 2018-11-30 14:43 | Outpatient (CLI) | payer MEDICARE, OTHER, SELFPAY ==
[2018-11-03 20:34] VITALS: BMI 32.1
--- NOTE | 2018-11-30 14:45 | CT_ITS ---
STUDY: CT CHEST/THORAX WITHOUT CONTRAST REASON FOR EXAM: Female, 78 years old. Bronchiectasis, productive cough. Bronchoscopy one month ago showed bacteria. History of breast cancer, left mastectomy, and lymph node removal. RADIATION DOSAGE (If Supplied By Facility): CTDIvol = ( 13.65 ) mGy, DLP = ( 381.34 ) mGycm TECHNIQUE: Transaxial imaging was performed without the administration of intravenous contrast material. Multiplanar coronal and sagittal images were reformatted. Individualized dose optimization techniques were used for this CT. COMPARISON: PA and lateral chest x-ray November 21, 2018. FINDINGS: There is tubular bronchiectasis in the right upper lobe with numerous dilated 3rd-4th order airways impacted with mucus. Mild bronchial thickening also present. There is bronchiectasis also in the bilateral lower lobes, and a few small peripheral airways in the anterolateral basilar right lower lobe are also mucus filled. No consolidating infiltrate. There is no demonstrated pleural abnormality. Normal heart and pericardium. There are calcifications of the coronary arteries. A pair of nonspecific right pretracheal lymph nodes noted on series 602 image 63, the more superior measuring 11 x 8 x 12 mm and the second measuring 10.5 x 6.5 x 6.5 mm. There are other subcentimeter nonspecific mediastinal nodes. Normal hilar regions. Normal unenhanced pulmonary arteries. There is atherosclerotic calcification of the aortic arch and stable tortuosity of the descending thoracic aorta. There are multi-level degenerative changes of the thoracic spine. Left breast is absent, and an extracorporeal prosthesis is present. Numerous metal surgical clips project in the soft tissues of the left lateral chest wall/axilla. There is no demonstrated abnormality of the visualized upper abdomen. CT/Chest without Contrast IMPRESSION: 1. Bronchiectasis present. There are numerous subsegmental airways in the right upper lobe that are impacted with mucus. This is also seen to a lesser degree in the peripheral airways of the anterolateral basilar right lower lobe. 2. No pleural effusion or suspicious adenopathy. 3. Mild atherosclerotic vascular calcifications. 4. Prior left mastectomy. Surgical changes also seen in the left lateral chest wall/axilla. Electronically Signed: Gavin Jimenez MD at 14:17 EST , Service support ,
--- OUTSIDE RECORDS SUMMARY | 2019-02-04 10:09 | XMS RPT_ITS ---
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 syndrome. In view of increased symptoms of lethargic, zoning out and decreased awareness most probably secondary to linezolid it was decided to discontinue it. Patient agrees with that. As per the BAL culture report, MRSA sensitive to doxycycline. Patient had CT scan done outside in [facility] the report is not available. It is hard to get report because of Tuesday and holidays. Prescription for doxycycline for 10 more days was given. There is no significant drug and drug interaction with fexofenadine. MRI brain shows no acute intracranial findings but moderate chronic sinusitis. 2. Hypertension: fairly controlled; on amlodipine 3. MRSA pneumonia: On further review of record, patient had bronchoscopy on 10/18/2018 which reported as edema present in anterior segment of right upper lobe. Chronic bronchitis. Mucus plugging on the anterior segment of left upper lobe. MRSA sensitive to doxycycline and Bactrim DS. 4. Depression and anxiety, probably withdrawal symptoms of antidepressants: States antidepressant, Effexor was stopped by her twisting frame changer on account of her starting Zyvox. DVT prophylaxis: heparin Patient agrees with discontinuation of linezolid and is starting doxycycline. Patient was advised to follow Dr. Henson in 1-[address] Henson on his phone 2 times but he did not respond. received from his office and he has signed out to no one until November 20. Discharge medication reconciliation done. Discharge follow- up instructions completed. Discharge process discussed with the patient. Total time spent, exact 35 minutes on discharge meds reconciliation, examination, review of imaging and blood test and discussion with the patient on follow-up instructions. Clinical Impression(s) from Imaging Studies Brain CT 11/03/18 17:11 IMPRESSION: Stable atrophy and white matter disease with no acute abnormality. Cervical Spine CT 11/03/18 17:11 IMPRESSION: There is no definite acute fracture/dislocation. Degenerative changes. Chest X-Ray 11/03/18 17:25 IMPRESSION: No acute chest disease. Subjective: Seen and examined. Patient is more awake and alert. Patient had positive MRSA and passed on bronchial washings by Dr. Henson on 10/18/2018 and started on Zyvox which she already took for 2.5 weeks and about 10 days left. patient has history of anxiety and depression motor symptoms of mental cloudiness, decreased awareness, attention deficit got worse the last 3 weeks after starting Zyvox. While sitting on the toilet seat on 11/04/2018, patient head slumped forward but did not pass out. It is more like spacing out Objective: General: Oriented x3, Cooperative, awake and alert. Prompt respond. Reaction time has improved. According to speech HEENT: Atraumatic, PERRLA, EOMI, Normocephalic Neck: Supple, No JVD, Negative Carotid Bruits Lungs: Clear to auscultation, No rhonchi, No wheeze, No rales, air entry diminished bilaterally. Cardiovascular: Regular rate, Regular Rhythm, Normal S1, Normal S2, No murmurs Abdomen: Bowel Sounds Present, Soft, Non Tender, Non-Distended Extremities: No edema, Capillary Refill Less than 3 Seconds Skin: No rashes, No breakdown Musculoskeletal: No Tenderness to Palpation of Joints or Extremities, Arthritic Changes, Muscle Wasting Neurological: Cranial nerves II-XII grossly intact, - - Lethargic, patient had falls. Psych/Mental Status: Normal Affect, Appropriate - Physical Exam Vital Signs Temp Pulse Resp BP Pulse Ox 97.8 F 88 18 155/81 H 96 11/05/18 09:00 11/05/18 09:00 11/05/18 09:00 11/05/18 09:00 11/05/18 09:00 Oxygen Flow Rate (L/min) 3 Oxygen Delivery Method Room Air Weight: 153 lb 14.122 oz Body Mass Index (BMI) 32.1 Orthostatic Vital Signs Start: 11/04/18 01:09 Freq: q24h Status: Active Protocol: Activity Type Activity Date Activity User E-Sign Co-Sign Detail Recorded Client Recorded Date Recorded By Document 11/05/18 03:00 KRISTA [id number] 11/05/18 03:12 RJW Orthostatic Vitals Standing -Blood Pressure (90/60-120/80) 134/80 H -Extremity Use Right Arm -Pulse Rate (60-100) 75 Sitting -Blood Pressure (90/60-120/80) 129/101 H Intake and Output for Last 24 Hours Intake Total 676 / 676 3633 / 3633 1999 Balance 676 / 676 3633 / 3633 1999 Laboratory Tests Past 24 Hrs WBC 5.2 RBC 4.67 Hgb 13.0 Hct 40.3 MCV 86.3 MCH 27.8 MCHC 32.3 Call your doctor if you observe: Fever of 101 or Higher, Inability to have a bowel movement, Shortness of breath, Dizziness, Fainting spells, Chest pain, Increased palpitations (irregular heartbeat) Home Medications: Medications to take at Discharge ALPRAZolam [Xanax] 0.125 - 0.25 mg PO BID PRN PRN 10/14/15 Amlodipine [Norvasc] 5 mg PO DAILY 10/14/15 Timolol 0.5% [Timoptic] 1 drop EACH EYE BID 10/14/15 Ergocalciferol [Vitamin D] 50,000 unit PO UD 01/26/16 Acetaminophen [Tylenol Extra Strength] 500 mg PO QHS 11/03/18 Cyanocobalamin (Vitamin B-12) [Vitamin B-12] 1,000 mcg PO DAILY 11/03/18 Flaxseed Oil 1,000 mg PO DAILY 11/03/18 Fluticasone/Vilanterol [Breo Ellipta 200-25 Mcg INH] 1 puff INHALATION DAILY 11/03/18 Omeprazole 40 mg PO DAILY 11/03/18 Doxycycline 100 mg PO BID #20 cap 11/05/18 Fexofenadine HCl 180 mg PO DAILY #1 tablet 11/05/18 Following Prescrptions Were Given to Patient: Fexofenadine HCl 180 mg PO DAILY #1 tablet Doxycycline 100 mg PO BID #20 cap Primary Care Physician: Amrik Gutierrez MD [Primary Care Provider] - Please follow up with your Primary Care Physician in: in 2 week Please Follow Up With: Jacob Henson MD When: in 2 weeks Medical Necessity - Tobacco Use Smoking Status: Never smoker Meaningful Use Info Meaningful Use Diagnoses (Choose all that apply): None applicable Code Visit Inpatient E AND M: 29408 Disch Hosp 11/05/18 1732 <Electronically signed by Rahat Ac MD> Date Rahat Ac MD Cosigner Signature (if applicable): Date CC: Amrik Gutierrez MD; Rahat Ac MD Signed DISCHARGE INSTRUCTION Observed: 11/05/2018 Status: F Source: [place] 11:29 AM [facility] REPOSITORY [facility] Medical Records Department [address] [place] [address] Instructions for Home/Discharge Instructions 11/05/18 0931 MR#: [id number] Acct: [id number] Name: JUVE UGARTEFADUMO Hair Rep #: [id number] : 1940 78 From: Rahat Ac MD PCP: Amrik Gutierrez MD Status: ADM INOCENCIA - Discharge Diagnoses Current Active Problems: Current Active and Chronic Problems Pre-syncope (Acute) You will use the following diet at home:: Cardiac Call your doctor if you observe: Fever of 101 or Higher, Inability to have a bowel movement, Shortness of breath, Dizziness, Fainting spells, Chest pain, Increased palpitations (irregular heartbeat) Allergies/Adverse Reactions: Allergies oxycodone HCl [From Percodan] Adverse Reaction (Verified 11/03/18 19:15) Nausea oxycodone terephthalate [From Percodan] Adverse Reaction (Verified 11/03/18 19:15) Nausea Sulfa (Sulfonamide Antibiotics) Adverse Reaction (Verified 11/03/18 19:15) Nausea/Vom/Diarrhea PEROXIDE Adverse Reaction (Uncoded 11/03/18 19:15) IN TOOTHEPASTE- CAUSED BLISTERS. Medications to take at Discharge ALPRAZolam [Xanax] 0.125 - 0.25 mg PO BID PRN PRN 10/14/15 Amlodipine [Norvasc] 5 mg PO DAILY 12/01/15 Timolol 0.5% [Timoptic] 1 drop EACH EYE BID 10/14/15 Ergocalciferol [Vitamin D] 50,000 unit PO UD 01/26/16 Acetaminophen [Tylenol Extra Strength] 500 mg PO QHS 11/03/18 Cyanocobalamin (Vitamin B-12) [Vitamin B-12] 1,000 mcg PO DAILY 11/03/18 Flaxseed Oil 1,000 mg PO DAILY 11/03/18 Fluticasone/Vilanterol [Breo Ellipta 200-25 Mcg INH] 1 puff INHALATION DAILY 11/03/18 Omeprazole 40 mg PO DAILY 11/03/18 Doxycycline 100 mg PO BID #20 cap 11/05/18 Fexofenadine HCl 180 mg PO DAILY #1 tablet 11/05/18 The following prescriptions were given: Fexofenadine HCl 180 mg PO DAILY #1 tablet Doxycycline 100 mg PO BID #20 cap Primary Care Physician: Amrik Gutierrez MD [Primary Care Provider] - Please follow up with your Primary Care Physician in: in 2 week Test Results: Test results from this visit will be discussed in further detail at your follow-up appointment, if applicable. Please Follow Up With: Jacob Henson MD When: in 2 weeks 11/05/18 1129 <Electronically signed by Rahat Ac MD> Date Rahat Ac MD CC: Amrik Gutierrez MD; Vince Mendenhall MD Signed CBC W/DIFF, AUTOMATED Collected: 11/05/2018 Status: F Source: [place] 6:02 AM [facility] REPOSITORY TYPE CODE TESTS RESULT OUT OF RANGE REFERENCE UNITS LAB L100.1000 4.4-11.0 K/mm3 Normal WBC 5.2 LAB L100.1200 4.2-5.4 M/mm3 Normal RBC 4.67 LAB L100.1300 12.0-15.0 g/dl Normal HGB 13.0 LAB L100.1400 37-47 % Normal HCT 40.3 LAB L100.1500 81-99 fL Normal MCV 86.3 LAB L100.1600 27.0-32.0 pg Normal MCH 27.8 LAB L100.1700 32-36 g/gl Normal MCHC 32.3 LAB L100.1810 11.6-14.6 % Normal RDW CV 13.5 LAB L100.1820 35.1-43.9 fl Normal RDW SD 42.7 LAB L100.1900 150-450 K/mm3 Normal PLT 214 LAB L100.2000 6.2-12.0 fl Normal MPV 9.1 LAB L100.2100 47-70 % Normal NEUT% 54.4 LAB L100.2200 19-41 % Normal LY% 31.2 LAB L100.2300 0-10 % Normal MONO% 9.8 LAB L100.2400 0-5 % Normal EO% 3.8 LAB L100.2500 0-1 % Normal BASO% 0.8 LAB L100.2550 0.0-0.9 % Normal IM GRAN % 0.000 Result Comment: IG% - Immature Granulocytes (promyelocytes, myelocytes and metamyelocytes) > 1% indicates that a LEFT SHIFT is Present. LAB L100.2620 2.0-7.7 X10 3/uL Normal Absolute Neut 2.8 LAB L100.2720 0.83-4.51 X10 3/ul Normal Absolute Lymph 1.62 Performed By: #### L100.0100 #### [facility] [address] [place], [place], [address] BASIC METABOLIC Collected: 11/05/2018 Status: F Source: [place] PROFILE ([facility]) 6:02 AM [facility] REPOSITORY TYPE CODE TESTS RESULT OUT OF RANGE REFERENCE UNITS LAB L501.0100 74-106 mg/dL Normal GLU 80 Result Comment: Please note revised GLUCOSE reference range effective 2017. LAB L501.1000 7-18 mg/dL Low BUN 6 LAB L501.1100 0.55-1.02 mg/dL Normal CREAT,SERUM 0.65 Result Comment: The validity of the calculated GFR AND GFRAA in patients over 70 years has not been determined. Clinical correlation is essential. LAB L501.1110 >60 mL/min Normal EST GFR 94 Result Comment: Non- GFR Calc LAB L501.1115 >60 mL/min Normal EST GFR - AA 113 Result Comment: GFR Calc LAB L501.1255 ml/min Normal Estimated CRCL 51.91 LAB L501.1300 10-20 RATIO Low BUN/CRE 9.2 LAB L501.2200 8.5-10 mg/dL Low .1 CA 7.9 LAB L501.5300 136-14 mmol/L High 5 NA 146 LAB L501.5600 3.5-5. mmol/L Normal 1 K 3.5 LAB L501.5900 98-107 mmol/L High CL 114 LAB L501.6100 21.0-3 mmol/L Normal 2.0 CO2 24.0 LAB L501.6200 5-15 Normal GAP 8 Performed By: #### L500.2500 #### [facility] [address] [place], [address] BRAIN WITHOUT Observed: 11/04/2018 Status: F Source: [place] CONTRAST 9:24 AM [facility] REPOSITORY [facility] Imaging Services [address] [place] [address] Brain without Contrast MR#: [id number] Acct: [id number] Name: HOLLIE UGARTE Rep #: [id number] : 1940 F 78 From: Ann Marie Boudreaux MD PCP: Amrik Gutierrez MD Status: ADM INOCENCIA Study: Brain without Contrast Date of Exam: 11/04/18 Exam# [id number] Ordering Dr: Caryn Tineo MD STUDY: MRI BRAIN WITHOUT CONTRAST REASON FOR EXAM: Female, 78 years old. Near syncope. Vertigo. TECHNIQUE: Standardized multiplanar fat and water weighted pulse sequences were obtained. COMPARISON: CT brain 11/03/2018. FINDINGS: There is patient motion on several pulse sequences. There is no intracranial mass, hemorrhage, territorial infarct or acute ischemia. There is mild cerebral atrophy with widening of the extra- axial spaces and ventricular dilatation. There are a limited number of small white matter hyperintensities, distributed throughout the deep white matter tracts of the cerebral hemispheres, consistent with mild chronic white matter ischemic changes. Normal bilateral basal ganglia. Normal thalami. There is no extra-axial fluid accumulation. Normal flow voids within the major intracranial circulation suggesting patency by spin echo criteria. Normal sella turcica, pituitary gland, infundibular stalk, optic chiasm and hypothalamus. Normal tectal plate and pineal gland. Normal midbrain, james and medulla. Normal cerebellum. Normal basal cisterns. Normal bilateral temporal bones. Normal bilateral internal auditory canals. There is mucosal thickening in the sphenoid, ethmoid, and maxillary sinuses. There is marked sclerosis of the left maxillary sinus collins, which may indicate chronic osteitis. No demonstrated orbital abnormality, within the constraints of a routine brain study. Normal calvarium and skull base. Normal visualized soft tissue structures. Normal visualized upper cervical spine. MRI/Brain without Contrast IMPRESSION: 1. No acute intracranial findings. 2. Mild microvascular ischemic changes. 3. Moderate chronic sinusitis. Electronically Signed: Ann Marie Boudreaux MD at 18:16 EST Tel , Service support , CC: Jorge Tineo MD; Amrik Gutierrez MD Program Manager: Signed HISTORY AND PHYSICAL Observed: 11/04/2018 Status: F Source: [place] EXAM 7:09 AM [facility] REPOSITORY [facility] Medical Records Department [address] [place] [address] History and Physical 11/03/181999 MR#: [id number] Acct: [id number] Name: HOLLIE UGARTE Rep #: [id number] : 1940 78 From: Mirella Aguilera MD PCP: Amrik Gutierrez MD Status: ADM INOCENCIA Y Location: [place] [address] History of Present Illness Date of Admission: 11/03/18 The patient is a 78 year old F past medical history of hypertension and depression. She recently had a bronchial washout on account of a chronic cough for 3 years and states that she was found to have MRSA in the right lung. She was started on linezolid. She is for about the past couple of weeks, she has been having some spells which her description of it is very vague but states that she feels like her head gets clouded and she has to struggle to get out of this face and also feels some stiffness on the right side. She also feels like she is about to fall when she has those episodes and had one today which her witnessed that she fell. She did not lose consciousness but had (afterwards she was quite drowsy and lethargic. She had no associated urinary or fecal incontinence or tongue biting. She denied feeling her heart racing admitted to subjective fever but no chills, denies any chest pain, palpitations, abdominal pain, diarrhea or vomiting. She denies any weakness in any extremity and has not noticed any mouth drooping. In the ED, vitals were significant for tachycardia with heart rate of 110. CBC was unremarkable and BMP was also unremarkable. Brain CT showed stable atrophy and areas of decreased attenuation in white matter tracts of supratentorial brain consistent with microvascular disease changes. CT of the cervical spine showed no definite acute fracture or dislocation and only showed degenerative changes. Chest x- ray showed no acute cardia pulmonary process. She has been admitted to be managed for near syncope to rule out a seizure. [] Past Medical History Allergies oxycodone HCl [From Percodan] Adverse Reaction (Verified 11/03/18 19:15) Nausea oxycodone terephthalate [From Percodan] Adverse Reaction (Verified 11/03/18 19:15) Nausea Sulfa (Sulfonamide Antibiotics) Adverse Reaction (Verified 11/03/18 19:15) Nausea/Vom/Diarrhea PEROXIDE Adverse Reaction (Uncoded 11/03/18 19:15) IN TOOTHEPASTE- CAUSED BLISTERS. Home Medications: Ambulatory Orders Medication Instructions Recorded ALPRAZolam [Xanax] 0.125 - 0.25 mg PO BID PRN PRN 10/14/15 Amlodipine [Norvasc] 5 mg PO DAILY 10/14/15 Timolol 0.5% [Timoptic] 2 drop EACH EYE BID 10/14/15 Surgical History: - - Mastectomy Psychiatric History: Depression PONY WORKER History: No pertinent PONY WORKER history Lives: Spouse/ Significant Other Smoking Status: Never smoker Alcohol: None Drugs: None - *Family History Sibling History Items: Hypertension Maternal History Items: No pertinent history Paternal History Items: No pertinent history Review of Systems Constitutional: Reports: Fever, Weakness, Fatigue. Denies: Chills, Malaise, Weight Change Eyes: Denies: Blurred vision, Double vision, Vision Change HEENT: Denies: Head Aches, Sinus Congestion, Sinus Drainage Cardiovascular: Denies: Chest Pain, Chest Tightness, Heaviness, Light Headedness, Palpitations Respiratory: Denies: Pleuritic Pain, Shortness of Breath, Shortness of breath at rest, Shortness of breath upon exertion, Wheezing Gastrointestinal: Denies: Abdominal Pain, Nausea, Vomiting Genitourinary: Denies: Dysuria Musculoskeletal: Denies: Joint Pain, Joint Tenderness Skin: Denies: Rash, Wounds Neurological: Reports: Confusion. Denies: Balance problems, Blurred vision, Double vision, Change in Speech, Slurred speech, Focal weakness, Numbness, Tingling, Seizures Psychiatric: Reports: Depression. Denies: Anxiety Hematologic/ Lymphatic: Denies: Easy Bruising, Easy Bleeding VTE Information - Inpt Only VTE Present on Admission: No VTE Pharm Prophylaxis ordered?: Yes - Physical Exam General: Alert, Oriented x3, Cooperative, No apparent distress, Lethargic HEENT: Atraumatic, PERRLA, EOMI, Normocephalic Oral: Moist Mucosa Neck: Supple, No JVD, Negative Carotid Bruits Lungs: Clear to auscultation, Normal air movement, No rhonchi, No wheeze, No rales Cardiovascular: Regular rate, Regular Rhythm, Normal S1, Normal S2, No murmurs Abdomen: Bowel Sounds Present, Soft, Non Tender, Non-Distended, No Hepato-splenomegaly Extremities: No clubbing, No cyanosis, No edema, Capillary Refill Less than 3 Seconds Skin: No rashes, No breakdown Musculoskeletal: No Tenderness to Palpation of Joints or Extremities Lymphatic: No Cervical, Supraclavicular, or Inguinal Adenopathy Neurological: Cranial nerves II-XII grossly intact, Deep Tendon Reflexes 2+/4 and Symmetrical, Neuro grossly intact, Motor Exam 5/5 strength throughout, Muscle tone normal, Sensory exam intact to light touch and pain, Coordination normal Psych/Mental Status: Normal Affect, Appropriate, Alert and oriented to time, place, person, mood and affect Vital Signs Temp Pulse Resp BP Pulse Ox 98.7 F 110 H 19 H 137/73 H 100 11/03/18 19:00 11/03/18 19:00 11/03/18 19:00 11/03/18 19:00 11/03/18 19:00 Oxygen Flow Rate (L/min) 2 Oxygen Delivery Method Nasal Cannula Weight: 150 lb Body Mass Index (BMI) 31.3 Laboratory Tests Past 24 Hrs WBC 7.9 RBC 5.35 Hgb 15.1 H Hct 45.8 MCV 85.6 MCH 28.2 MCHC 33.0 RDW 13.[address] 11/03/18 17:11 IMPRESSION: Stable atrophy and white matter disease with no acute abnormality. Electronically Signed: Felipe Infante MD at 17:49 EST , Service support , Cervical Spine CT 11/03/18 17:11 IMPRESSION: There is no definite acute fracture/dislocation. Degenerative changes. Electronically Signed: Felipe Infante MD at 18:15 EST , Service support , Chest X-Ray 11/03/18 17:25 IMPRESSION: No acute chest disease. Electronically Signed: Felipe Infante MD at 18:17 EST , Service support , Assessment/Plan All Active Problems Pain of right middle finger (Acute) Joint swelling, finger, hand (Acute) Cellulitis of finger (Acute) Nonhealing surgical wound (Acute) 78-year-old female presenting with complaints of near syncope 1. near syncope of unknown etiology * differentials include cardiac arrhythmia vs seizure * says symptoms started after she started taking Linezolid for MRSA infection in her right lung * symptom description is very vague * fell today * admit to PCU with telemetry * EKG showed sinus tachycardia with LVH and repolarisation abnormalities * neurology consult * monitor telemetry for any arrhhythmia * monitor electrolytes to ensure they are WNL * check orthostatics * hydrate gently with IVF NS * 2. Hypertension: fairly controlled; on amlodipine 3. MRSA lung infection: * as recently diagnosed per bronchial washout and culture. on Linezolid. * Side effects of linezolid reviewed and include seizures. * Will hold for now until neurology reviews patient. 4. Depression: States antidepressant was stopped by her twisting frame changer on account of her starting Zyvox. Will monitor. DVT prophylaxis: heparin GI prophylaxis: on PPI Code Visit OBSV Rebekah AND M: [id number] Initial observation care L3 11/04/18 0709 <Electronically signed by Mirella Aguilera MD> Date Mirella Aguilera MD Cosigner Signature: Date (if applicable) CC: Amrik Gutierrez MD; Mirella Aguilera MD Signed CBC W/DIFF, AUTOMATED Collected: 11/04/2018 Status: F Source: [place] 6:11 AM [facility] REPOSITORY TYPE CODE TESTS RESULT OUT OF RANGE REFERENCE UNITS LAB L100.1000 4.4-11.0 K/mm3 Normal WBC 5.6 LAB L100.1200 4.2-5.4 M/mm3 Normal RBC 4.85 LAB L100.1300 12.0-15.0 g/dl Normal HGB 13.7 LAB L100.1400 37-47 % Normal HCT 41.9 LAB L100.1500 81-99 fL Normal MCV 86.4 LAB L100.1600 27.0-32.0 pg Normal MCH 28.2 LAB L100.1700 32-36 g/gl Normal MCHC 32.7 LAB L100.1810 11.6-14.6 % Normal RDW CV 13.5 LAB L100.1820 35.1-43.9 fl Normal RDW SD 41.5 LAB L100.1900 150-450 K/mm3 Normal PLT 252 LAB L100.2000 6.2-12.0 fl Normal MPV 9.2 LAB L100.2100 47-70 % Normal NEUT% 58.0 LAB L100.2200 19-41 % Normal LY% 30.7 LAB L100.2300 0-10 % Normal MONO% 7.3 LAB L100.2400 0-5 % Normal EO% 2.7 LAB L100.2500 0-1 % High BASO% 1.1 LAB L100.2550 0.0-0.9 % Normal IM GRAN % 0.200 Result Comment: IG% - Immature Granulocytes (promyelocytes, myelocytes and metamyelocytes) > 1% indicates that a LEFT SHIFT is Present. LAB L100.2620 2.0-7.7 X10 3/uL Normal Absolute Neut 3.3 LAB L100.2720 0.83-4.51 X10 3/ul Normal Absolute Lymph 1.72 Performed By: #### L100.0100 #### [facility] [address] [place], [place], [address] BASIC METABOLIC Collected: 11/04/2018 Status: F Source: [place] PROFILE ([facility]) 6:11 AM [facility] REPOSITORY TYPE CODE TESTS RESULT OUT OF RANGE REFERENCE UNITS LAB L501.0100 74-106 mg/dL Normal GLU 88 Result Comment: Please note revised GLUCOSE reference range effective 2017. LAB L501.1000 7-18 mg/dL Normal BUN 8 LAB L501.1100 0.55-1.02 mg/dL Normal CREAT,SERUM 0.76 Result Comment: The validity of the calculated GFR AND GFRAA in patients over 70 years has not been determined. Clinical correlation is essential. LAB L501.1110 >60 mL/min Normal EST GFR 78 Result Comment: Non- GFR Calc LAB L501.1115 >60 mL/min Normal EST GFR - AA 94 Result Comment: GFR Calc LAB L501.1255 ml/min Normal Estimated CRCL 51.91 LAB L501.1300 10-20 RATIO Normal BUN/CRE 10.5 LAB L501.2200 8.5-10 mg/dL Low .1 CA 7.9 LAB L501.5300 136-14 mmol/L Normal 5 NA 145 LAB L501.5600 3.5-5. mmol/L Normal 1 K 3.9 LAB L501.5900 98-107 mmol/L High CL 114 LAB L501.6100 21.0-3 mmol/L Normal 2.0 CO2 23.0 LAB L501.6200 5-15 Normal GAP 8 Performed By: #### L500.2500 #### [facility] [address] [place], [address] EMERGENCY DEPARTMENT Observed: 11/03/2018 Status: F Source: [place] SUMMARY 11:52 PM [facility] REPOSITORY [facility] Medical Records Department [address] [place] [address] Emergency Department Summary 11/03/18 1756 MR#: [id number] Acct: [id number] Name: HOLLIE UGARTE Rep #: [id number] : 1940 78 From: Amena Shine MD PCP: Amrik Gutierrez MD Status: ADM INOCENCIA - ER Visit Summary Date of Service: 11/03/18 Chief Complaint: Near syncope History of Present Illness: The patient is a 78 F with a history of chronic cough for the past 3 years. She had a bronchoscopy performed approximately 2 weeks ago and is currently on Brisa nasal lid. Patient reports multiple episodes of near syncope that have worsened since her bronchoscopy. Today she fell to the ground with this episode but denied any full loss of consciousness. She denies palpitations or irregular heart rate prior to the episodes. Past history significant for reflux disease, hypertension, and breast cancer that led to mastectomy. She has had prior cholecystectomy. Physical Examination: Blood pressure is 154/75, temperature 98.9, heart rate 109, respiratory rate 18, pulse ox 96% on room air. Patient sitting upright in bed no acute distress. She is alert and speaking full sentences. Head neck examination was mild cervical paraspinal tenderness. Heart is regular rate and rhythm. Lung sounds are clear. Abdomen is soft and nontender. Extremity examination reveals mild tenderness to both shoulders, but she does have full range of motion. Neuro exam reveals no focal deficits. Test Results: EKG is sinus tach at 105, unchanged when compared to prior. CBC was hemoglobin 15.1. Chemistry studies normal. Troponin less than 0.015. Chest x-ray shows no acute disease. CT head shows stable findings with no acute abdomen noted. CT the C-spine shows no acute fracture. Emergency Department Course and Treatment: Patient received IV fluids here. On repeat evaluation she remains mildly tachycardic. Patient has had multiple episodes of near syncope, today to the point where she fell to the floor. She will be admitted observation status overnight for monitoring. Treatment Plan: [] Disposition: Admit Impression: Near syncope This note was generated with [employer] dictation software. It may contain incorrect words, spelling, and punctuation that were not noted in review of the chart prior to signing ED Disposition - Plan for ED Patient: Chief Complaint: Syncope Referrals: Amrik Gutierrez MD [Primary Care Provider] - What to do if you have Problems For any increased pain, shortness of breath, bleeding, nausea or vomiting, chest pain, or any unexpected problems, contact your Primary Care Provider. Call [facility] ([phone]) or report to the closest Emergency Room. Call 911 if necessary. 11/03/18 2352 <Electronically signed by Amena Shine MD> Date Amena Shine MD Cosigner Signature (If Indicated): Date CC: Amrik Gutierrez MD BRAIN/HEAD WITHOUT Observed: 11/03/2018 Status: F Source: [place] CONTRAST 5:12 PM [facility] REPOSITORY [facility] Imaging Services [address] [place] [address] Brain/Head without Contrast MR#: [id number] Acct: [id number] Name: HOLLIE UGARTE Reginaldo Rep #: [id number] : 1940 F 78 From: Felipe Infante MD PCP: Amrik Gutierrez MD Status: PRE ER Study: Brain/Head without Contrast Date of Exam: 11/03/18 Exam# [id number] Ordering Dr: Amena Shine MD STUDY: CT BRAIN WITHOUT CONTRAST REASON FOR EXAM: Female, 78 years old. Syncope. RADIATION DOSAGE (If Supplied By Facility): CTDIvol = ( 44.99 ) mGy, DLP = ( 745.49 ) mGycm TECHNIQUE: Transaxial CT imaging of the brain was performed without administration of intravenous contrast material. Individualized dose optimization techniques were used for this CT. COMPARISON: None. FINDINGS: Normal soft tissue structures. Normal calvarium. There is mild cerebral atrophy with widening of the extra- axial spaces and ventricular dilatation. There are areas of decreased attenuation within the white matter tracts of the supratentorial brain, consistent with microvascular disease changes. Normal basal ganglia and thalami. Normal brainstem. There is mild cerebellar atrophy. There is no intracranial hemorrhage. There are no findings of an acute ischemic infarction. There is mucoperiosteal inflammatory disease of the paranasal sinuses consistent with moderate chronic sinusitis. CT/Brain/Head without Contrast IMPRESSION: Stable atrophy and white matter disease with no acute abnormality. Electronically Signed: Felipe Infante MD at 17:49 EST , Service support , CC: Amena Shine MD; Amrik Gutierrez MD Program Manager: Signed SPINE CERVICAL Observed: 11/03/2018 Status: F Source: [place] WITHOUT CONTRAS 5:12 PM [facility] REPOSITORY [facility] Imaging Services [address] [place] [address] Spine Cervical without Contras MR#: [id number] Acct: [id number] Name: HOLLIE UGARTE Rep #: [id number] : 1940 F 78 From: Felipe Infante MD PCP: Amrik Gutierrez MD Status: REG ER Study: Spine Cervical without Contras Date of Exam: 11/03/18 Exam# [id number] Ordering Dr: Amena Shine MD STUDY: CT CERVICAL SPINE WITHOUT CONTRAST REASON FOR EXAM: Female, 78 years old. Syncope. Fall. RADIATION DOSAGE (If Supplied By Facility): CTDIvol = ( 26.75 ) mGy, DLP = ( 516.09 ) mGycm TECHNIQUE: High resolution transaxial imaging was performed without contrast material. Sagittal and coronal images were reconstructed. Individualized dose optimization techniques were used for this CT. COMPARISON: None FINDINGS: No definite acute fracture/dislocation. The cervical junction is intact. C1-C2 articulation is intact. Mild reversal of curvature. 2 mm anterolisthesis of C3 on C4. 2 mm anterolisthesis of C4 on C5. Otherwise normal alignment. Facet joints are intact at all levels bilaterally. No jumped facets. There is multilevel spondyloarthropathy. Multilevel degenerative disc disease seen. Multilevel loss of disc height. Multilevel posterior marginal osteophytes and disc bulges. Multilevel neural foraminal narrowing. Findings most prominent at C6-C7. Visualized paraspinal soft tissues and structures are unremarkable. CT/Spine Cervical without Contras IMPRESSION: There is no definite acute fracture/dislocation. Degenerative changes. Electronically Signed: Felipe Infante MD at 18:15 EST , Service support , CC: Amena Shine MD; Amrik Gutierrez MD Program Manager: Signed CHEST 1 VIEW Observed: 11/03/2018 Status: F Source: [place] (PORTABLE) 5:12 PM [facility] REPOSITORY [facility] Imaging Services [address] [place] [address] Chest 1 View (Portable) MR#: [id number] Acct: [id number] Name: HOLLIE UGARTE Rep #: [id number] : 1940 F 78 From: Felipe Infante MD PCP: Amrik Gutierrez MD Status: REG ER Study: Chest 1 View (Portable) Date of Exam: 11/03/18 Exam# [id number] Ordering Dr: Amena Shine MD STUDY: X-RAY CHEST REASON FOR EXAM: Female, 78 years old. Syncope. TECHNIQUE: Single AP portable view of the chest. COMPARISON: None. FINDINGS: The lungs are clear and expanded. There is no demonstrated pleural abnormality. Normal size heart. Normal mediastinum and amy. Normal visualized pulmonary arteries. There is atherosclerotic tortuosity of the aortic arch and descending thoracic aorta. Normal visualized thoracic spine. Normal visualized ribs, clavicles, and shoulders. There is no demonstrated abnormality of the visualized soft tissue structures of the upper abdomen. There are clips in the left axilla consistent with lymphadenectomy for breast cancer. RAD/Chest 1 View (Portable) IMPRESSION: No acute chest disease. Electronically Signed: Felipe Infante MD at 18:17 EST , Service support , CC: Amena Shine MD; Amrik Gutierrez MD Program Manager: Signed CBC W/DIFF, AUTOMATED Collected: 11/03/2018 Status: F Source: [place] 5:10 PM [facility] REPOSITORY TYPE CODE TESTS RESULT OUT OF RANGE REFERENCE UNITS LAB L100.1000 4.4-11.0 K/mm3 Normal WBC 7.9 LAB L100.1200 4.2-5.4 M/mm3 Normal RBC 5.35 LAB L100.1300 12.0-15.0 g/dl High HGB 15.1 LAB L100.1400 37-47 % Normal HCT 45.8 LAB L100.1500 81-99 fL Normal MCV 85.6 LAB L100.1600 27.0-32.0 pg Normal MCH 28.2 LAB L100.1700 32-36 g/gl Normal MCHC 33.0 LAB L100.1810 11.6-14.6 % Normal RDW CV 13.4 LAB L100.1820 35.1-43.9 fl Normal RDW SD 41.7 LAB L100.1900 150-450 K/mm3 Normal PLT 311 LAB L100.2000 6.2-12.0 fl Normal MPV 9.5 LAB L100.2100 47-70 % Normal NEUT% 69.7 LAB L100.2200 19-41 % Normal LY% 20.2 LAB L100.2300 0-10 % Normal MONO% 7.5 LAB L100.2400 0-5 % Normal EO% 1.5 LAB L100.2500 0-1 % Normal BASO% 0.8 LAB L100.2550 0.0-0.9 % Normal IM GRAN % 0.300 Result Comment: IG% - Immature Granulocytes (promyelocytes, myelocytes and metamyelocytes) > 1% indicates that a LEFT SHIFT is Present. LAB L100.2620 2.0-7.7 X10 3/uL Normal Absolute Neut 5.5 LAB L100.2720 0.83-4.51 X10 3/ul Normal Absolute Lymph 1.60 Performed By: #### L100.0100 #### [facility] [address] [place], [address] BASIC METABOLIC Collected: 11/03/2018 Status: F Source: [place] PROFILE (BMP) 5:09 PM [facility] REPOSITORY TYPE CODE TESTS RESULT OUT OF RANGE REFERENCE UNITS LAB L501.0100 74-106 mg/dL High GLU 137 Result Comment: Fasting Glucose result greater than or equal to 126 mg/dL suggests DIABETES MELLITUS per A.D.A. criteria. Please note revised GLUCOSE reference range effective 2017. LAB L501.1000 7-18 mg/dL Normal BUN 15 LAB L501.1100 0.55-1.02 mg/dL Normal CREAT,SERUM 1.01 Result Comment: The validity of the calculated GFR AND GFRAA in patients over 70 years has not been determined. Clinical correlation is essential. LAB L501.1110 >60 mL/min Low EST GFR 56 Result Comment: Non- GFR Calc LAB L501.1115 >60 mL/min Normal EST GFR - AA 68 Result Comment: GFR Calc LAB L501.1255 ml/min Normal Estimated CRCL 50.10 LAB L501.1300 10-20 RATIO Normal BUN/CRE 14.9 LAB L501.2200 8.5-10 mg/dL Normal .1 CA 8.6 LAB L501.5300 136-14 mmol/L Normal 5 NA 139 LAB L501.5600 3.5-5. mmol/L Normal 1 K 3.6 LAB L501.5900 98-107 mmol/L Normal CL 107 LAB L501.6100 21.0-3 mmol/L Normal 2.0 CO2 21.0 LAB L501.6200 5-15 Normal GAP 11 Performed By: #### L500.2500, L501.4010 #### [facility] [address] [place], [address] TROPONIN-I Collected: 11/03/2018 Status: F Source: [place] 5:09 PM [facility] REPOSITORY TYPE CODE TESTS RESULT OUT OF RANGE REFERENCE UNITS LAB L501.4010 <0.045 ng/mL Normal < 0.015 TROPONIN-I Result Comment: TROPONIN-I EXPECTED VALUES <0.045 Negative 0.045 - 0.590 Consistent with Cardiac Damage > OR = 0.600 Critical Value Not every elevated troponin is indicative of FL. These values should be used with clinical judgement in examining the patient's clinical picture for diagnosis. To establish a diagnosis of FL versus myocardial injury, there must be a demonstrated rise and/or fall in the troponin values, in addition to ischemic symptoms, EKG changes, new regional wall motion abnormality, and/or angiographical evidence. PLEASE NOTE: REFERENCE RANGES EDITED 18 Performed By: #### L500.2500, L501.4010 #### [facility] [address] [place], [address] OPERATIVE REPORT - Observed: 10/25/2018 Status: F Source: [place] ENDOSCOPY 9:16 AM [facility] REPOSITORY [facility] Medical Records Department [address] [place] [address] Operative Report - Endoscopy MR#: [id number] Acct: [id number] Name: HOLLIE UGARTE Rep #: [id number] : 1940 78 From: Jacob Henson MD PCP: Amrik Gutierrez MD Status: [facility] Patient Name: Hollie Ugarte Procedure Date: 10/18/2018 12:27 PM Date of : 1940 Age: 78 Procedure: Bronchoscopy Indications: Chronic cough with abnormal CT Providers: Jacob Henson MD Referring MD: Amrik Gutierrez Medicines: Lidocaine applied to nares and subglottic space, Lidocaine 2% Nebulizer 2.5 mL, Propofol per Anesthesia Complications: No immediate complications Procedure: Pre-Anesthesia Assessment: - A History and Physical has been performed. Patient meds and allergies have been reviewed. The risks and benefits of the procedure and the sedation options and risks were discussed with the patient. All questions were answered and informed consent was obtained. Patient identification and proposed procedure were verified prior to the procedure in the procedure room. Mental Status Examination: normal. Airway Examination: normal oropharyngeal airway. Respiratory Examination: clear to auscultation. CV Examination: RRR, no murmurs, no S3 or S4. ASA Grade Assessment: II - A patient with mild systemic disease. After reviewing the risks and benefits, the patient was deemed in satisfactory condition to undergo the procedure. The anesthesia plan was to use See Shamiria notes, Diprovan used. Immediately prior to administration of medications, the patient was re-assessed for adequacy to receive sedatives. The heart rate, respiratory rate, oxygen saturations, blood pressure, adequacy of pulmonary ventilation, and response to care were monitored throughout the procedure. The physical status of the patient was re-assessed after the procedure. - A History and Physical has been performed. Patient meds and allergies have been reviewed. The risks and benefits of the procedure and the sedation options and risks were discussed with the patient's The patient. All questions were answered and informed consent was obtained. Patient identification and proposed procedure were verified prior to the procedure by the nurse in the procedure room Proceedure room. Mental Status Examination: normal. Airway Examination: normal oropharyngeal airway. Respiratory Examination: clear to auscultation. CV Examination: normal. ASA Grade Assessment: II - A patient with mild systemic disease. After reviewing the risks and benefits, the patient was deemed in satisfactory condition to undergo the procedure. The anesthesia plan was to use moderate sedation / analgesia (conscious sedation). Immediately prior to administration of medications, the patient was re-assessed for adequacy to receive sedatives. The heart rate, respiratory rate, oxygen saturations, blood pressure, adequacy of pulmonary ventilation, and response to care were monitored throughout the procedure. The physical status of the patient was re-assessed after the procedure. After I obtained informed consent, the scope was passed under direct vision. Throughout the procedure, the patient's blood pressure, pulse, and oxygen saturations were monitored continuously. The bronchoscope was introduced through the right nostril and advanced to the tracheobronchial tree of both lungs. The procedure was accomplished without difficulty. Findings: The nasopharynx/oropharynx appears normal. The larynx appears normal. The vocal cords appear normal. The subglottic space is normal. The trachea is of normal caliber. The harley is sharp. The tracheobronchial tree was examined to at least the first subsegmental level. Bronchial mucosa and anatomy are normal; there are no endobronchial lesions, and no secretions. Bronchoalveolar lavage was performed in the RUL anterior segment (B3) of the lung and sent for cell count, bacterial culture, viral smears AND culture, fungal AND AFB analysis and cytology for immunocompromised host protocol, cell count and differential, bacterial, AFB and fungal analysis, AFB analysis AND culture and Aspergillus antigen. 120 mL of fluid were instilled. 40 mL were returned. The return was cloudy. Mucous plugs were present in the return fluid. Right Lung Abnormalities: Edema was found in the anterior segment of the right upper lobe (B3). Impression: - Chronic cough with abnormal CT - The airway examination was normal. - Bronchoalveolar lavage was performed. - Edema was present in the anterior segment of the right upper lobe (B3). - Normal nasal passageway. - Chronic bronchitis was found. - A mucous plug was found in the anterior segment of the left upper lobe (B3). Recommendation: - Await BAL results. Procedure Code(s): --- Professional --- 38790, Bronchoscopy, rigid or flexible, including fluoroscopic guidance, when performed; with bronchial alveolar lavage Diagnosis Code(s): --- Professional --- T17.990A, Other foreign object in respiratory tract, part unspecified in causing asphyxiation, initial encounter J42, Unspecified chronic bronchitis R91.8, Other nonspecific abnormal finding of lung field R05, Cough CPT copyright 2017 [employer]. All rights reserved. The codes documented in this report are preliminary and upon bar and filler assembler review may be revised to meet current compliance requirements. MD Jacob Page MD 10/25/2018 9:16:26 AM This report has been signed electronically. Number of Addenda: 0 Note Initiated On: 10/18/2018 12:27 PM 10/25/18 0916 Date Jacob Hesnon MD Cosigner Signature: Date (if indicated) CC: Amrik Gutierrez MD; Jacob Henson MD Date Dictated: 10/18/18 1227 Date Transcribed: Program Manager: RVS Signed BODY FLUID CELL Collected: 10/18/2018 Status: C Source: [place] COUNT+DIFF 2:00 PM [facility] REPOSITORY Order Comment: The reference range and other method performance specifications have not been established for this body fluid. The test must be integrated into the clinical context for interpretation. BACTERIA NOTED Specimen Source: [place] TYPE CODE TESTS RESULT OUT OF RANGE REFERENCE UNITS LAB L200.3100 Normal BRONCHIAL SOURCE/BF [place] LAB L200.3200 Normal COLORLESS COLOR/BF LAB L200.3300 Normal CLOUDY APPEAR/BF LAB L200.3380 0.000-0.000 10 3/ul Test Normal BFTC# not performed LAB L200.3400 /mm3 238 Normal RBC/BF LAB L200.3500 /mm3 5788 Normal WBC/BF LAB L200.4400 Normal PATH Reviewed COMM/BF Result Comment: Negative for malignant cells. Acute inflammation. Please also correlate with corresponding cytology specimen [id number]. Clinical correlation necessary. Enrique More M.D. 10/19/18 AMENDED REPORT 10/19/18 1019 PATH COMM/BF previously reported as: May follow LAB L200.3600 % Normal PMN 79 LAB L200.3700 % Normal LYMPH 11 LAB L200.3800 % Normal MONO/BF 10 Performed By: #### L200.0200 #### [facility] [address] [place], [address] Observed: 10/18/2018 Status: F Source: [place] CULTURE, BODY FLUID 2:00 PM [facility] REPOSITORY [facility] [place] Results called/MESSAGE on 10/23/18-0753 by KEEGAN to [phone]. Copy of report sent to Infection Control Printer [id number] 10/23/18 5832 KEEGAN. List Antibiotics Last 48 Hours? , List Antibiotics to be Started? , Gram Stain Gram Stain Rare Epithelial cells No organisms seen Body Fluid Cult #3 Gram positive yoni suggestive of a diptheroid. There are no CLSI standards for interpretation of this Drug/Organism combination. #4 There are no CLSI standards for interpretation of this Drug/Organism combination. ORGANISM 1: Meth. resistant Staph. aureus Amount Growth 3+ ORGANISM 2: Strep not Strep pneumo Amount Growth 3+ ORGANISM 3: Gram positive yoni Amount Growth Growth ORGANISM 4: Aeromonas salmonicida Amount Growth Rare Meth. resistant Staph. aureus: REACTION Benzylpenicillin NF >=0.5 R Cefoxitin *NF + Clindamycin $$ <=0.25 S Inducable Clindamycin Resistan - Erythromycin $ <=0.25 S Gentamicin $ <=0.5 S Levofloxacin $ <=0.12 S Linezolid $$$$ 2 S Oxacillin NF 0.5 R Tigecycline $$$$ <=0.12 S Rifampin $$ <=0.5 S Tetracycline NF <=1 S Trimethoprim/Sulfametho $ <=10 S Vancomycin $ <=0.5 S (NF) indicates non-formulary drug at [facility]. Approval by Infectious Disease Specialist required before non-formulary drugs may be ordered and/or dispensed. * CLSI guidelines does not recommend testing of cephalosporins. This interpretation is deduced from Beta-lactam/penicillin results. Cult, Anaerobic Studies have confirmed that Prevotella, Porphyromonas and Bacteroides species other than B. fragilis group are routinely susceptible to: Ampicillin/Sulbactam, Piperacillin/Tazobactam, Cefoxitin, Tigecycline, Ertapenem, Imipenem, Meropenem and Metronidazole and variable in resistance to: Penicillin/Ampicillin, Clindamycin and Moxifloxacin. ORGANISM 1: Prevotella denticola Beta Lactamase Positive Performed By: #### M100.1300 #### [facility] [address], [address] CYTOLOGY, WASHINGS Collected: 10/18/2018 Status: F Source: [place] 2:00 PM [facility] REPOSITORY TYPE CODE TESTS RESULT OUT OF RANGE REFERENCE UNITS LAB L350.1100 SEE Normal PATHOLOGY CYTOLOGY,WA REPORT SH Result Comment: Specimen submitted to Anatomical Pathology Department for testing. Performed By: #### L350.1100 #### [facility] [address] [place], [address] Observed: 10/18/2018 Status: F Source: [place] CULTURE, FUNGUS 8482 2:00 PM [facility] REPOSITORY Cu,[id number] TESTING PERFORMED AT [facility]. ORIGINAL REPORT ON FILE IN LAB CONTAINS ADDITIONAL TEST SITE INFORMATION. CUF Positive Fungus Culture ORGANISM 1: Aspergillus species Amount Growth Growth ORGANISM 2: Claire albicans Amount Growth Growth Performed By: #### M600.2000 #### [facility] [address] [facility] [place], [address] Observed: 10/18/2018 Status: F Source: [place] ACID FAST BACT 2:00 PM [facility] CULT/SM REPOSITORY AFB Smear[facility]Fluor [facility] ORIGINAL REPORT ON FILE IN LAB CONTAINS ADDITIONAL TEST SITE INFORMATION. Smear, Acid Fast Acid Fast Smear from Concentrated Specimen :Negative AFB Cult TESTING PERFORMED AT [facility]. ORIGINAL REPORT ON FILE IN LAB CONTAINS ADDITIONAL TEST SITE INFORMATION. Culture, Acid Fast NO ACID-FAST BACILLI ISOLATED AFTER 6 WEEKS. Performed By: #### M300.1000 #### [place] [facility] [address] [place], [address] FLUID/WASHING Observed: 10/18/2018 Status: F Source: [place] 12:00 AM [facility] REPOSITORY Patient: HOLLIE UGARTE : 1940 (78/F) Acct Num: [id number] Phys: Sixto CUNNINGHAM,Jacob Unit Num: [id number] Loc: EN Specimen: [id number] Received: 10/18/18 - 1445 Spec Type: Fluid TISSUES 1 TISSUES: Bronchus of right upper lobe COMMENT The specimen contains abundant acute inflammation, degenerating epithelial cells and occasional bacterial colonies. Clinical correlation is suggested. CYTOLOGY GROSS Received is 25 ml of white cloudy fluid labeled with the patient's name and and designated per the requisition as RUL anterior segment. Submitted for cytology preparation including cell block. / 10/18/18 TC:2 CPT: 38340, 94748 CYTOLOGY STUDY Slides are reviewed. DIAGNOSIS CYTOLOGY Right upper lobe anterior segment mucous plug (cytospin and cell block): Negative for malignant cells. Acute inflammation. AM:annika 10/19/18 HEADER OPERATION: Bronchoscopy, BAL PRE-OP DIAGNOSIS: Mucous plug TISSUE SUBMITTED: RUL anterior segment Signed Jin Vega 10/19/18 <signature on file> Performed By: #### PFLU #### [facility] [address] [place], [address] CBC Collected: 09/18/2018 Status: F Source: [place] 10:48 AM [facility] REPOSITORY TYPE CODE TESTS RESULT OUT OF REFERENCE UNITS RANGE LAB WBC 3.70-11.00 k/uL WBC 6.54 LAB RBC 3.90-5.20 m/uL RBC High 5.26 LAB HGB 11.5-15.5 g/dL Hemoglobin 14.9 LAB HCT 36.0-46.0 % High Hematocrit 47.1 LAB MCV 80.0-100.0 fL MCV 89.5 LAB MCH 26.0-34.0 pG MCH 28.3 LAB MCHC 30.5-36.0 g/dL MCHC 31.6 LAB RDWCV 11.5-15.0 % RDW-CV 13.5 LAB PLTCT 150-400 k/uL Platelet Count 352 LAB MPV 9.0-12.7 fL MPV 10.4 LAB ABSNUC <0.01 k/uL Absolute nRBC <0.01 Performed By: #### CBC, VITD, CMP, LIPNF #### [facility] [address] [place] [address] VITAMIN D 25 HYDROXY Collected: 09/18/2018 Status: F Source: [place] 10:48 AM [facility] REPOSITORY TYPE CODE TESTS RESULT OUT OF REFERENCE UNITS RANGE LAB VITD 31.0-80.0 ng/mL Vitamin D 25 60.2 Hydroxy Result Comment: Classification of 25 [place] Vitamin D status: Insufficiency/Moderate Deficiency: < or = 30 ng/mL Sufficiency/Optimal Levels: 31 to 80 ng/mL Toxicity: > 100 ng/mL Test performed by chemiluminescent immunoassay. Performed By: #### CBC, VITD, CMP, LIPNF #### [facility] [address] [address] COMP METABOLIC PANEL Collected: 09/18/2018 Status: F Source: [place] 10:48 AM [facility] REPOSITORY TYPE CODE TESTS RESULT OUT OF REFERENCE UNITS RANGE LAB TP 6.3-8.0 g/dL Protein, Total 7.0 LAB ALB 3.9-4.9 g/dL Albumin 4.2 LAB CA 8.5-10.2 mg/dL Calcium, Total 8.9 LAB TBIL 0.2-1.3 mg/dL Bilirubin, Total 0.3 LAB ALKP 34-123 U/L Alkaline Phosphatase 80 LAB AST 13-35 U/L AST 15 LAB GLU 74-99 mg/dL Glucose 92 Result Comment: The [place] Diabetes [employer] (ADA) provides guidance for cutoff values for fasting glucose and random glucose. The ADA defines fasting as no caloric intake for at least 8 hours. Fas ting plasma glucose results between 100 to 125 mg/dL indicate increased risk for diabetes (prediabetes). Fasting plasma glucose results greater than or equal to 126 mg/dL meet the criteria for diagnosis of diabetes. In the absence of unequivocal hyperglycemia, results should be confirmed by repeat testing. In a patient with classic symptoms of hyperglycemia or hyperglycemic crisis, random plasma glucose results greater than or equal to 200 mg/dL meet the criteria for diagnosis of diabetes. Reference: Standards of Medical Care in Diabetes 2016, [place] [employer] Association. Diabetes Care. 2016.39(Suppl 1). LAB BUN 7-21 mg/dL BUN 19 LAB CRET 0.58-0.96 mg/dL Creatinine 0.90 LAB NA 136-144 mmol/L Sodium 141 LAB K 3.7-5.1 mmol/L Potassium 3.9 LAB CL 97-105 mmol/L Chloride 101 LAB CO2 22-30 mmol/L CO2 24 LAB AGAP 9-18 mmol/L Anion Gap 16 LAB ALT 7-38 U/L ALT 14 LAB GFRAA eGFR- Amer. >60 LAB GFRNAA . eGFR-All Other Races >60 Result Comment: eGFR (Estimated GFR) Units of measure: mL/min/1.73 meters squared eGFR is derived from the reexpressed MDRD Study equation using the following parameters: serum creatinine, age, gender and race. The creatinine assay has been calibrated to be traceable to IDMS. An eGFR <60 mL/min/1.73m2 for >3 months is consistent with chronic kidney disease. Refer to KDOQI guidelines for clinical interpretation. In patients with unstable renal function, e.g. those with acute kidney injury, the eGFR may not accurately reflect actual GFR. Performed By: #### CBC, VITD, CMP, LIPNF #### [facility] [address] [place], [place] [address] LIPID PANEL, NONFAST Collected: 09/18/2018 Status: F Source: [place] 10:48 AM [facility] REPOSITORY TYPE CODE TESTS RESULT OUT OF REFERENCE UNITS RANGE LAB CHOLNF <200 mg/dL Total Cholesterol NF 173 Result Comment: <200 mg/dL, Desirable 200-239 mg/dL, Borderline high >239 mg/dL, High LAB TRIGNF <150 mg/dL Triglycerides, NF High 318 Result Comment: <150 mg/dL, Normal 150-199 mg/dL, Borderline high 200-499 mg/dL, High >499 mg/dL, Very high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 GIVENUNK Catarino Insurance:SELF PAY [facility] Effective Repository Date:2018-07-20 07/19/2018 CLEMENCIA UGARTE Primary HOLLIE Toribio Jr[address] Insurance:MEDICARE SIGLERDOB: Community MONIKA PART A BPolicy Number: [id number] [place], [place] [id number] Repository 517[address]Zkq: (506) Date:2018-07-19 [phone] () 07/19/2018 Secondary HOLLIE Toribio Insurance:HUMANA SIGLERDOB: [facility] COMMERCIALPolicy [id number] Hospital Number: Repository [id number] Date:2852-24-48YA [address] [address]GV: 07/19/2018 Tertiary NOT GIVENUNK Hardin Insurance:SELF PAY [facility] Number: Effective Repository Date:2018-07-19 06/30/2018 CLEMENCIA UGARTE Primary HOLLIE Toribio Jr[address] Insurance:MEDICARE SIGLERDOB: Community MONIKA PART A BPolicy Number: [id number] [place], [place] [id number] Repository [address]Ezs: (253) Date:2018-06-15 [phone] () 06/30/2018 Secondary HOLLIE Toribio Insurance:HUMANA SIGLERDOB: Community COMMERCIALPolicy [id number] Hospital Number: Repository [id number] Date:1551-08-23CO [address] [place] [address]LX: 06/30/2018 Tertiary NOT GIVENUNK Catarino Insurance:SELF PAY [facility] Hospital Number: Effective Repository Date:2018-06-15 06/14/2018 CLEMENCIA UGARTE Primary HOLLIE Toribio Jr[address] Insurance:MEDICARE SIGLERDOB: Community MONIKA PART A BPolicy Number: [id number] [place] [id number] Repository [address]Lkg: (330) Date:2018-06-14 [phone] () 06/14/2018 Secondary HOLLIE Toribio Insurance:HUMANA SIGLERDOB: Community COMMERCIALPolicy [id number] Hospital Number: Repository [id number] Date:6278-58-13FP [address] [place] [address]PI: 06/14/2018 Tertiary NOT GIVENUNK Catarino Insurance:SELF PAY [facility] Number: Effective Repository Date:2018-06-14 05/06/2018 CLEMENCIA UGARTE Primary HOLLIE Toribio Jr[address] Insurance:MEDICARE SIGLERDOB: Community MONIKA PART A BPolicy Number: [id number] [place] [id number] Repository [address]Rbb: (409) Date:2018-05-06 [phone] () 05/06/2018 Secondary HOLLIE Knowlesoster Insurance:HUMANA SIGLERDOB: Community COMMERCIALPolicy [id number] Hospital Number: Repository [id number] Date:2969-37-64JX [address] [place] [address]KG: 05/06/2018 Tertiary NOT GIVENUNK Catarino Insurance:SELF PAY [facility] Number: Effective Repository Date:2018-05-06 05/05/2018 CLEMENCIA UGARTE Primary HOLLIE Toribio Jr[address] Insurance:MEDICARE SIGLERDOB: Community MONIKA PART A BPolicy Number: [id number] [place]averly, [place] [id number] Repository [address]Hqw: (330) Date:2018-05-05 [phone] () 05/05/2018 Secondary HOLLIE Toribio Insurance:HUMANA SIGLERDOB: Community COMMERCIALPolicy [id number] Hospital Number: Repository [id number] Date:1896-77-79CR [address] [place] [address]JO: 05/05/2018 Tertiary NOT GIVENFACUNDO Toribio Insurance:SELF PAY [facility]: Effective Repository Date:2018-05-05
== END ==
PROVIDERS: Family Provider Internal Medicine; PCP Internal Medicine; Referring Provider Internal Medicine Pulmonary Disease; Visit Provider Internal Medicine Pulmonary Disease
DX: J47.9 Bronchiectasis, uncomplicated (principal)
CPT/HCPCS: 71250

== ENCOUNTER → 2019-01-03 08:07 | Outpatient (CLI) | payer MEDICARE, OTHER, SELFPAY ==
[2019-01-03 08:29] LABS: Erythrocyte Sedimentation Rate 4 mm/hr (0-30)
== END ==
PROVIDERS: Family Provider Internal Medicine; PCP Internal Medicine; Referring Provider Internal Medicine Pulmonary Disease; Visit Provider Internal Medicine Pulmonary Disease
DX: J47.9 Bronchiectasis, uncomplicated (principal); R05 Cough
CPT/HCPCS: 36415; 85652; 87070; 87077; 87101; 87106; 87186; 87205

== ENCOUNTER → 2019-07-09 08:39 | Outpatient (CLI) | payer MEDICARE, OTHER, SELFPAY ==
--- NOTE | 2019-07-09 08:42 | BI_ITS ---
MAMMOGRAPHY - UNILATERAL SCREENING: RIGHT BREAST REASON FOR EXAM: Female, 79 years old. Routine annual screening examination (unilateral). PERTINENT HISTORY: Personal history of breast cancer. Prior left mastectomy. TECHNIQUE: Digital unilateral breast yasmin (3D mammographic acquisition) in the CC and MLO projections. 2-D mediolateral oblique (MLO) and craniocaudad (CC) views of both breasts were obtained. CAD: Full Field Digital Mammography with Computer Added Detection was performed. COMPARISON: Comparison is made with prior study dated June 30, 2018 and June 29, 2017. FINDINGS: Breast Composition: The breasts are almost entirely fatty. There are no dominant masses or suspicious calcifications. No other significant abnormalities are identified. There has been no significant change since the prior study. BI/SCREEN MAMM (CAD) W/YASMIN UNI R IMPRESSION: Stable unilateral screening mammogram. Yearly follow-up mammogram recommended. (A) ASSESSMENT CATEGORY: BIRADS Category 1: Negative. A letter regarding these results will be sent to the patient by the facility within 30 days. Approximately 10% of breast cancers are not detected by mammography. A normal mammogram should not delay biopsy of a clinically suspicious abnormality. [id number] Electronically Signed: Cj Sandy, at 10:05 EDT , Service support ,
== END ==
PROVIDERS: Family Provider Internal Medicine; PCP Internal Medicine; Referring Provider Internal Medicine; Visit Provider Internal Medicine
DX: Z12.31 Encounter for screening mammogram for malignant neoplasm of breast (principal); Z85.3 Personal history of malignant neoplasm of breast; Z90.12 Acquired absence of left breast and nipple
CPT/HCPCS: 77061; 77063; 77067; G0279

== ENCOUNTER → 2019-08-01 10:37 | Outpatient (CLI) | payer MEDICARE, OTHER, SELFPAY | PROVIDERS: Family Provider Internal Medicine; PCP Internal Medicine; Referring Provider Internal Medicine Pulmonary Disease; Visit Provider Internal Medicine Pulmonary Disease | DX: J47.9 Bronchiectasis, uncomplicated (principal); R05 Cough | CPT/HCPCS: 87070; 87077; 87186; 87205 ==

== ENCOUNTER → 2020-07-14 08:34 | Outpatient (CLI) | payer MEDICARE, OTHER, SELFPAY ==
--- NOTE | 2020-07-14 08:38 | BI_ITS ---
MAMMOGRAPHY - UNILATERAL SCREENING: RIGHT BREAST REASON FOR EXAM: Female, 80 years old. Routine annual screening examination (unilateral). PERTINENT HISTORY: Personal history of breast cancer. Prior left mastectomy. TECHNIQUE: Digital unilateral breast yasmin (3D mammographic acquisition) in the CC and MLO projections. 2-D mediolateral oblique (MLO) and craniocaudad (CC) views of both breasts were obtained. CAD: Full Field Digital Mammography with Computer Added Detection was performed. COMPARISON: Comparison is made with prior study dated 07/09/2019 and 06/30/2018. FINDINGS: Breast Composition: The breasts are almost entirely fatty. There are no dominant masses or suspicious calcifications. Stable benign-appearing right axillary lymph nodes. No other significant abnormalities are identified. There has been no significant change since the prior study. BI/SCREEN MAMM (CAD) W/YASMIN UNI R IMPRESSION: Stable unilateral screening mammogram. Yearly follow-up mammogram recommended. (A) ASSESSMENT CATEGORY: BIRADS Category 2: Benign. A letter regarding these results will be sent to the patient by the facility within 30 days. Approximately 10% of breast cancers are not detected by mammography. A normal mammogram should not delay biopsy of a clinically suspicious abnormality. [id number] Electronically Signed: Cj Sandy, at 10:16 EDT , Service support ,
== END ==
PROVIDERS: PCP Internal Medicine; Referring Provider Internal Medicine; Visit Provider Internal Medicine
DX: Z12.31 Encounter for screening mammogram for malignant neoplasm of breast (principal); Z85.3 Personal history of malignant neoplasm of breast; Z90.12 Acquired absence of left breast and nipple
CPT/HCPCS: 77063; 77067

== ENCOUNTER → 2020-08-28 13:42 | Outpatient (CLI) | payer MEDICARE, OTHER, SELFPAY | PROVIDERS: PCP Internal Medicine; Referring Provider Internal Medicine Pulmonary Disease; Visit Provider Internal Medicine Pulmonary Disease | DX: J47.9 Bronchiectasis, uncomplicated (principal) | CPT/HCPCS: 87070; 87077; 87102; 87186; 87205; 87206 ==

== ENCOUNTER 2020-09-12 10:44 | Emergency (ER) | payer MEDICARE, OTHER, SELFPAY ==
[2020-09-12 10:45] VITALS: BP 156/76; PULSE 74; RESP 20; TEMP 37.1; O2SAT 96; BMI 31.3
[2020-09-12 11:40] LABS: Absolute Lymphocyte Count 0.89 X10^3/uL (0.83-4.51); Absolute Neutrophil Count 3.6 X10^3/uL (2.0-7.7); Basophil# 0.02 X10^3/uL; Basophil% 0.4 % (0-1); Hematocrit 45.4 % (37-47); Hemoglobin 14.7 g/dL (12.0-15.0); Lymphocyte # 0.89 X10^3/ul (4.0); Lymphocyte % 17.7 % (19-41); Mean Corp Hgb Conc 32.4 g/dL (32-36); Mean Corpuscular Hgb 27.8 pg (27.0-32.0); Mean Corpuscular Volume 85.8 fL (81-99); Mean Platelet Vol. 10.4 fl (6.2-12.0); Monocyte# 0.53 X10^3/uL; Monocyte% 10.5 % (0-10); NRBC Flagged by Analyzer 0 % (0-5); Neutrophil # 3.57 X10^3/uL (2.7-7.7); Platelet Count 236 K/mm3 (150-450); RBC Distribution Width CV 13.6 % (11.6-14.6); RBC Distribution Width SD 42.5 fl (35.1-43.9); Red Blood Count 5.29 M/mm3 (4.2-5.4)
[2020-09-12 11:50] LABS: Anion Gap 6 (5-15); BUN 15 mg/dL (7-18); Calcium,Total 8.2 mg/dL (8.5-10.1); Chloride 104 mmol/L (98-107); EST Glomerular Filtration Rate 57 mL/min (>60); Est Glom Filt Rate - Afr Amer 69 mL/min (>60); Glucose 115 mg/dL (74-106); Potassium 3.4 mmol/L (3.5-5.1); Sodium Level 137 mmol/L (136-145)
--- NOTE | 2020-09-12 12:11 | ED.DCSUM_ITS ---
History of Present Illness Chief Complaint: Nausea/Vomiting/Diarrhea Informant: Patient Onset: Days - Onset of illness was approximate 4 days ago. Context: Sudden Onset Timing: Continuous - Generalized weakness has been continuous. The nausea vom iting is been intermittent. Quality: Not applicable Location: GI and generalized Current Severity: Mild Maximum Severity: Severe Worsened by: Nothing Relieved by: Nothing Associated Symptoms: Lightheadedness Narrative: Patient is an elderly woman who presents with nausea, vomiting and diarrhea that started proxy 4 days ago. She reports generalized aches. She was at a . There were participants/constituents who were not wearing a mask. She states she wore her mask. She denies respiratory symptoms. Patient denies documented fever or subjective fever. She does complain of mild head discomfort that is intermittent. She denies photophobia, neck pain or neck stiffness. She denies rhinorrhea, congestion or postnasal drainage. She denies ear pain, ringing in ears or drainage from ears. She denies cough or shortness of breath. She denies chest discomfort. She denies leg pain, swelling or discoloration. Prior similar symptoms: No Recent Illness/Hospitalization: No - Past Medical History (1) Pre-syncope Status: Acute Past Medical History - Allergies and Home Meds Allergies/Adverse Reactions: Allergies oxycodone HCl [From Percodan] Adverse Reaction (Verified 09/12/20 13:20) Nausea oxycodone terephthalate [From Percodan] Adverse Reaction (Verified 09/12/20 13:20) Nausea Sulfa (Sulfonamide Antibiotics) Adverse Reaction (Verified 09/12/20 13:20) Nausea/Vom/Diarrhea PEROXIDE Adverse Reaction (Uncoded 11/03/18 19:15) IN TOOTHEPASTE- CAUSED BLISTERS. Primary Care Physician: Kristal Gutierrez MD [Primary Care Provider] - Prior records reviewed: Yes Surgical History: noncontributory, - - Mastectomy Lives: Alone Smoking Status: Unknown if ever smoked Alcohol: None Drugs: None - Family History Sibling Family History: Reports: Hypertension Maternal Family History: Reports: No pertinent history Paternal Family History: Reports: No pertinent history Review of Systems General: Reports: Malaise. Denies: Chills, Fever, Subjective, Sweats Eyes: Denies: Visual changes - bilaterally, Blurred Vision - bilaterally ENT: Denies: Bilateral ear pain, Rhinorrhea, Sore throat Cardiovascular: Denies: Chest pain, Palpitations Respiratory: Denies: Dyspnea, Cough, Dyspnea on exertion, Orthopnea, Paroxysmal nocturnal dyspnea Gastrointestinal: Reports: Nausea, Vomiting, Diarrhea. Denies: Abdominal pain, Constipation, Melena, Hematochezia Genitourinary: Denies: Dysuria, Hematuria, Frequency Musculoskeletal: Reports: Myalgias, Arthralgias. Denies: Neck pain, Back pain, Swelling, Extremity Pain, -, - Skin: Denies: Rash, Wounds Neurological: Reports: Headache, Weakness. Denies: Parasthesia, Numbness Psych: Denies: Depression, Anxiety Endocrine: Denies: Polyuria, Polydipsia Hematologic: Denies: Easy bruising, Easy bleeding Physical Exam Vital Signs/Narrative: Vital Signs Temp Pulse Resp BP Pulse Ox 09/12/20 10:45 98.8 F 74 20 H 156/76 H 96 Inital Vital Signs reviewed: Yes General: Well nourished, Well developed, Acute Distress Head: Normocephalic, Atraumatic Eyes: Perrl, EOMI. Negative for: Pale conjunctiva, Scleral icterus ENT: No rhinorrhea, TM's clear, Dry mucous membranes Neck: Supple, Nontender, No lymphadenopathy, No JVD Cardiovascular: Regular rate, Regular rhythm, No murmurs, Normal S1, Normal S2 Respiratory: No distress, CTA bilaterally, Chest nontender Abdomen: Soft, Nontender, Nondistended, Normal bowel sounds, No masses Rectal: Deferred Back: Nontender, Normal Inspection Extremities: Nontender. Negative for: Calf Tenderness Skin: Normal color, No rash, No Trauma. Negative for: Cyanosis, Diaphoresis, Jaundice Neurological: Alert, Oriented x3, Cranial nerves II-XII grossly intact, Normal Strength, Normal Sensation Psychological: Normal affect, Normal Mood Diagnostic/Tx/Re-eval Laboratory Results 09/12/20 09/12/20 09/12/20 10:55 10:55 14:10 WBC 5.0 RBC 5.29 Hgb 14.7 Hct 45.4 MCV 85.8 MCH 27.8 MCHC 32.4 RDW Std Deviation 42.5 RDW Coeff of Henry 13.6 Plt Count 236 MPV 10.4 Immature Gran % (Auto) 0.400 Neut % (Auto) 71.0 H Lymph % (Auto) 17.7 L Marquette % (Auto) 10.5 H Eos % (Auto) 0.0 Baso % (Auto) 0.4 Absolute Neuts (auto) 3.6 Absolute Lymphs (auto) 0.89 Nucleated RBC % 0 Sodium 137 Potassium 3.4 L Chloride 104 Carbon Dioxide 27.0 Anion Gap 6 BUN 15 Creatinine 1.00 Estim Creat Clear Calc 49.00 Est GFR (MDRD) Af Amer 69 Est GFR (MDRD) Non-Af 57 L BUN/Creatinine Ratio 15.0 Glucose 115 H Calcium 8.2 L Urine Color Yellow Urine Clarity Clear Urine pH 5.0 Ur Specific Oakley 1.020 Urine Protein 100 H Urine Glucose (UA) Normal Urine Ketones Negative Urine Occult Blood Negative Urine Nitrite Negative Urine Bilirubin Negative Urine Urobilinogen Normal Ur Leukocyte Esterase 100 H Urine RBC 0 SEEN Urine WBC 5-10 SEEN Ur Squamous Epith Cells 10-25 SEEN Urine Bacteria 1+ Urine Mucus 0 SEEN Urine is a contaminated specimen. Renal function is normal. Electrolytes reveal slight decrease in potassium most likely due to diarrhea. Patient was hydrated. Plan is to discharge to home. - Medical Decision Making Recent contact with people not wearing mask and recent outbreak of Covid in participants who attended will obtain Covid test. Orthostatic vitals were obtained. Blood work was obtained to assess electrolytes and specifically potassium as well as renal function. She was treated with Zofran for her nausea and vomiting. ED Disposition - Plan for ED Patient: Disposition: Home or Assisted Living Diagnosis: Nausea vomiting and diarrhea, Mild dehydration Instructions: ED Vomiting and Diarrhea Nonspecific Adult Prescriptions: Ondansetron [Zofran Odt] 4 mg PO Q8H PRN PRN #10 tab PRN Reason: Nausea Prescription Printed Referrals: Kristal Gutierrez MD [Primary Care Provider] - 3-5 Days if not improving Additional Instructions: Take Imodium as instructed on box or viral for diarrhea.
[2020-09-12 13:11] VITALS: BP 137/77; BP 143/74; BP 149/88; PULSE 74; PULSE 80; PULSE 82
[2020-09-12] MEDS: 0.9% Normal Saline 1,000 ML 1000 ML IV ×2 (13:18→15:30)
[2020-09-12 13:19] VITALS: BP 137/77; PULSE 74; RESP 24; O2SAT 95
[2020-09-12 14:30] LABS: Mucous, Urine 0 SEEN /hpf (<or=2+); Red Blood Cells-Urine 0 SEEN /hpf (0-5)
[2020-09-12 14:32] LABS: Color, Urine Yellow (Yellow); Glucose, Dipstick Normal (Normal); Ketone-Dipstick Negative (Negative); Leukocyte Esterase-Dipstick 100 /ul (Negative); Nitrite-Dipstick Negative (Negative); Occult Blood-Urine Negative /ul (Negative); Protein-Dipstick 100 mg/dl (Negative); Urine Bilirubin Dipstick Negative (Negative); Urine Clarity Clear (Clear); Urine Urobilinogen Normal (Normal)
[2020-09-12 14:44] LABS: Bacteria 1+ /hpf (None Seen); Squamous Epithelial Cells - UA 10-25 SEEN /hpf (5-10); White Blood Cells 5-10 SEEN /hpf (0-5)
[2020-09-12 15:35] VITALS: RESP 18
--- NOTE | 2020-09-12 15:45 | ED.RN ---
PT NOTIFIED COVID + TO EXPECT A PHONE CALL FROM HEALTH DEPARTMENT
== END 2020-09-12 15:37 | disposition home or self-care (01) ==
PROVIDERS: Emergency Provider Emergency Medicine; PCP Internal Medicine
DX: R11.2 Nausea with vomiting, unspecified (principal); E86.0 Dehydration; R19.7 Diarrhea, unspecified; Z79.899 Other long term (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 therapy
CPT/HCPCS: 80048; 81001; 85025; 87635; 96360; 96361; 99285; J7030; U0002

== ENCOUNTER 2020-09-16 10:06 | Inpatient (IN) | payer MEDICARE, OTHER, SELFPAY ==
[2020-09-16] VITALS (12 sets, daily range): BP systolic 112–162; BP diastolic 53–76; PULSE 70–105; RESP 14–32; TEMP 36.6–37.7; O2SAT 89–97; BMI 33.9; BMI 32.4
--- NOTE | 2020-09-16 10:09 | RAD_ITS ---
STUDY: X-RAY CHEST REASON FOR EXAM: Female, 80 years old. Covid positive 09/12, weakness and diarrhea TECHNIQUE: Single AP portable view of the chest. COMPARISON: 11/21/2018 FINDINGS: Status post left axillary lymph node dissection. No change in right-sided scarring. There is no demonstrated pleural abnormality. Normal size heart. Normal mediastinum and amy. Normal visualized pulmonary arteries. There is atherosclerotic tortuosity of the aortic arch and descending thoracic aorta. There is a dextroscoliosis of the thoracic spine. Normal visualized ribs, clavicles, and shoulders. There is no demonstrated abnormality of the visualized soft tissue structures of the upper abdomen. RAD/Chest 1 View (Portable) IMPRESSION: No change in right-sided scarring. CT would be more sensitive for pneumonitis. Electronically Signed: Emilio Zarate MD at 11:06 EST Tel , Service support ,
--- NOTE | 2020-09-16 10:09 | EKG12_ITS ---
Test Reason : Blood Pressure : / mmHG Vent. Rate : 101 BPM Atrial Rate : 101 BPM P-R Int : 176 ms QRS Dur : 102 ms QT Int : 354 ms P-R-T Axes : 035 -45 102 degrees QTc Int : 459 ms Sinus tachycardia Left axis deviation Left ventricular hypertrophy with repolarization abnormality Abnormal ECG Confirmed by TRACI CUNNINGHAM, LOUIS ([id number]), fan mail editor ARMOND TURNER ([id number]) on 09/18/2020 11:27:39 AM Referred By: SARA Confirmed By:LOUIS AVILES MD
--- NOTE | 2020-09-16 10:12 | ED.DCSUM_ITS ---
History of Present Illness Chief Complaint: Weakness Informant: Patient Onset: Days Context: Gradual Onset Current Severity: Moderate Maximum Severity: Moderate Narrative: Patient presents with continued diarrhea and weakness. She was seen here on September 12 with 4 days of nausea, vomiting, and diarrhea. She tested positive for Covid on that date. She states in spite of her Imodium at home she continues to have diarrhea and is just getting weaker. She denies shortness of breath but does have a mild cough. She does not believe she has had a fever at home. - Past Medical History (1) Hypertension Status: Chronic (2) Anxiety and depression Status: Chronic Past Medical History - Allergies and Home Meds Allergies/Adverse Reactions: Allergies oxycodone HCl [From Percodan] Adverse Reaction (Verified 09/16/20 10:11) Nausea oxycodone terephthalate [From Percodan] Adverse Reaction (Verified 09/16/20 10:11) Nausea Sulfa (Sulfonamide Antibiotics) Adverse Reaction (Verified 09/16/20 10:11) Nausea/Vom/Diarrhea PEROXIDE Adverse Reaction (Uncoded 09/16/20 10:11) IN TOOTHEPASTE- CAUSED BLISTERS. Primary Care Physician: Kristal Gutierrez MD [Primary Care Provider] - Prior records reviewed: Yes Surgical History: noncontributory, - - Mastectomy Lives: Spouse/ Significant Other Smoking Status: Unknown if ever smoked - Family History Sibling Family History: Reports: Hypertension Maternal Family History: Reports: No pertinent history Paternal Family History: Reports: No pertinent history Review of Systems General: Denies: Chills, Fever Eyes: Denies: Visual changes - bilaterally ENT: Denies: Bilateral ear pain Cardiovascular: Denies: Chest pain Respiratory: Reports: Cough, Sputum. Denies: Dyspnea Gastrointestinal: Reports: Nausea, Diarrhea. Denies: Abdominal pain Genitourinary: Denies: Dysuria Musculoskeletal: Denies: Extremity Pain Skin: Denies: Rash Hematologic: Denies: Easy bruising, Easy bleeding Allergy: Denies: Uticaria Physical Exam Vital Signs/Narrative: Vital Signs Temp Pulse Resp BP Pulse Ox 09/16/20 10:07 99.3 F H 105 H 28 H 150/76 H 90 Inital Vital Signs reviewed: Yes General: Well nourished, Well developed Head: Normocephalic ENT: Moist mucous membranes Neck: Supple Cardiovascular: Tachycardia Respiratory: No distress, CTA bilaterally Abdomen: Soft, Nontender, Hyperactive bowel sounds Skin: Normal color Neurological: Alert, Oriented x3 Psychological: - - Flat affect Diagnostic/Tx/Re-eval Impressions Chest X-Ray 09/16/20 10:09 IMPRESSION: No change in right-sided scarring. CT would be more sensitive for pneumonitis. Electronically Signed: Emilio Zarate MD at 11:06 EST Tel , Service support , 09/16/20 10:09 Chest 1 View (Portable) [RAD] Stat Laboratory Results 09/16/20 09/16/20 09/16/20 10:30 10:30 10:30 WBC 7.6 RBC 5.19 Hgb 14.7 Hct 44.2 MCV 85.2 MCH 28.3 MCHC 33.3 RDW Std Deviation 42.1 RDW Coeff of Henry 13.5 Plt Count 252 MPV 10.5 Immature Gran % (Auto) 0.400 Neut % (Auto) 76.6 H Lymph % (Auto) 13.4 L [place] % (Auto) 7.8 Eos % (Auto) 1.5 Baso % (Auto) 0.3 Absolute Neuts (auto) 5.8 Absolute Lymphs (auto) 1.01 Nucleated RBC % 0 D-Dimer Quant (PE/DVT) 0.52 H* Sodium 135 L Potassium 2.9 L Chloride 101 Carbon Dioxide 26.0 Anion Gap 8 BUN 13 Creatinine 0.94 Estim Creat Clear Calc 56.39 Est GFR (MDRD) Af Amer 74 Est GFR (MDRD) Non-Af 61 BUN/Creatinine Ratio 13.8 Glucose 115 H Lactic Acid Calcium 8.2 L 09/16/20 10:30 WBC RBC Hgb Hct MCV MCH MCHC RDW Std Deviation RDW Coeff of Henry Plt Count MPV Immature Gran % (Auto) Neut % (Auto) Lymph % (Auto) [place] % (Auto) Eos % (Auto) Baso % (Auto) Absolute Neuts (auto) Absolute Lymphs (auto) Nucleated RBC % D-Dimer Quant (PE/DVT) Sodium Potassium Chloride Carbon Dioxide Anion Gap BUN Creatinine Estim Creat Clear Calc Est GFR (MDRD) Af Amer Est GFR (MDRD) Non-Af BUN/Creatinine Ratio Glucose Lactic Acid 1.6 Calcium - EKG Initial EKG Interpretation: Sinus Tachycardia - Sinus tach at 101. LVH with repole. Unchanged when compared to prior study. - Medical Decision Making Patient was given a 500 cc IV fluid bolus here. She remains slightly tachypneic with oxygen saturations of 90 to 92% while sitting at rest. Potassium is low at 2.9 and IV potassium replacement has been ordered. I will speak with hospitalist regarding admission. ED Disposition - Plan for ED Patient: Disposition: Acute Care Hospital [facility] Diagnosis: COVID-19, Diarrhea, Hypokalemia Referrals: Kristal Gutierrez MD [Primary Care Provider] -
[2020-09-16 10:51] LABS: Absolute Lymphocyte Count 1.01 X10^3/uL (0.83-4.51); Absolute Neutrophil Count 5.8 X10^3/uL (2.0-7.7); Basophil# 0.02 X10^3/uL; Basophil% 0.3 % (0-1); Eosinophil# 0.11 X10^3/uL; Eosinophils% 1.5 % (0-5); Hematocrit 44.2 % (37-47); Hemoglobin 14.7 g/dL (12.0-15.0); Lymphocyte # 1.01 X10^3/ul (4.0); Lymphocyte % 13.4 % (19-41); Mean Corp Hgb Conc 33.3 g/dL (32-36); Mean Corpuscular Hgb 28.3 pg (27.0-32.0); Mean Corpuscular Volume 85.2 fL (81-99); Mean Platelet Vol. 10.5 fl (6.2-12.0); Monocyte# 0.59 X10^3/uL; Monocyte% 7.8 % (0-10); NRBC Flagged by Analyzer 0 % (0-5); Neutrophil # 5.79 X10^3/uL (2.7-7.7); Neutrophil % 76.6 % (47-70); POSITIVE MORPHOLOGY YES; Platelet Count 252 K/mm3 (150-450); RBC Distribution Width CV 13.5 % (11.6-14.6); RBC Distribution Width SD 42.1 fl (35.1-43.9); Red Blood Count 5.19 M/mm3 (4.2-5.4); White Blood Count 7.6 K/mm3 (4.4-11.0)
[2020-09-16 10:53] LABS: Differential Indicated SCAN CRITERIA MET
[2020-09-16 11:01] LABS: Anion Gap 8 (5-15); BUN 13 mg/dL (7-18); BUN/Creat Ratio 13.8 RATIO (10-20); Calcium,Total 8.2 mg/dL (8.5-10.1); Chloride 101 mmol/L (98-107); Creatinine, Serum 0.94 mg/dL (0.55-1.02); EST Glomerular Filtration Rate 61 mL/min (>60); Est Glom Filt Rate - Afr Amer 74 mL/min (>60); Estimated Creatinine Clearance 56.39 ml/min; Glucose 115 mg/dL (74-106); Potassium 2.9 mmol/L (3.5-5.1); Sodium Level 135 mmol/L (136-145)
[2020-09-16 11:17] LABS: Lactic Acid 1.6 mmol/L (0.4-1.9)
[2020-09-16 11:22] LABS: D-Dimer Quantitative (DVT/PE) 0.52 FEU/ug/m (0.27-0.49)
[2020-09-16] MEDS: Potassium Chloride 10mEq/100mL 10 MEQ/100 ML IV.SOLN. 100 MEQ IV BOLUS ×4 (11:26→15:10)
--- NOTE | 2020-09-16 11:36 | NURSING ---
DR MCCRACKEN FOR DR RUIZ
--- NOTE | 2020-09-16 11:39 | NURSING ---
MS2 COVID KITTOE COVID 19, HYPOKALEMIA, DIARRHEA
--- NOTE | 2020-09-16 11:43 | HP.PCM_ITS ---
Problem List (1) COVID-19 Status: Acute (2) Diarrhea Status: Acute (3) Hypokalemia Status: Acute (4) Anxiety and depression Status: Chronic (5) Hypertension Status: Chronic (6) Cellulitis of finger Status: Resolved Qualifiers: Laterality: right Qualified Code(s): L03.011 - Cellulitis of right finger (7) Joint swelling, finger, hand Status: Resolved (8) Nonhealing surgical wound Status: Resolved (9) Pain of right middle finger Status: Resolved (10) Pre-syncope Status: Resolved History of Present Illness Date of Admission: 09/16/20 Chief Complaint: Generalized weakness and diarrhea The patient is a 80 year old F with past medical history significant for GERD and hypertension who presented with progressive generalized weakness and diarrhea. Patient had apparently been diagnosed with COVID-19 4 days prior to her readmission. She was discharged home. She presented back to the emergency department in view of increasing shortness of breath generalized weakness and diarrhea. She reports 4 loose bowel movement on the morning of her presentation. She was seen in the emergency department found to be dehydrated with significant electrolyte abnormalities including hypokalemia correction of her hypokalemia was initiated in the ED and patient admitted for subsequent inpatient management. Past Medical History Past Medical History (Chronic Problems): Chronic Problems Hypertension (Chronic) Anxiety and depression (Chronic) Allergies oxycodone HCl [From Percodan] Adverse Reaction (Verified 09/16/20 10:11) Nausea oxycodone terephthalate [From Percodan] Adverse Reaction (Verified 09/16/20 10:11) Nausea Sulfa (Sulfonamide Antibiotics) Adverse Reaction (Verified 09/16/20 10:11) Nausea/Vom/Diarrhea PEROXIDE Adverse Reaction (Uncoded 09/16/20 10:11) IN TOOTHEPASTE- CAUSED BLISTERS. Home Medications: Ambulatory Orders Medication Instructions Recorded ALPRAZolam [Xanax] 0.125 - 0.25 mg PO BID PRN PRN 10/14/15 Amlodipine [Norvasc] 5 mg PO DAILY 10/14/15 Timolol 0.5% [Timoptic] 1 drop EACH EYE BID 10/14/15 Ergocalciferol [Vitamin D] 50,000 unit PO UD 01/26/16 Acetaminophen [Tylenol Extra 500 mg PO QHS 11/03/18 Strength] Cyanocobalamin (Vitamin B-12) 1,000 mcg PO DAILY 11/03/18 [Vitamin B-12] Fluticasone/Vilanterol [Breo 1 puff INHALATION DAILY 11/03/18 Ellipta 200-25 Mcg INH] Omeprazole 40 mg PO DAILY 11/03/18 Penicillin V Potassium 500 mg PO DAILY 09/12/20 Venlafaxine HCl [Venlafaxine HCl 150 mg PO DAILY 09/12/20 ER] Surgical History: noncontributory, - - Mastectomy Psychiatric History: Depression 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 Dyspnea Respiratory: Reports: Cough Gastrointestinal: Reports: Diarrhea Genitourinary: Denies: Dysuria, Frequency, Hematuria, Urgency Musculoskeletal: Denies: Joint Pain, Joint Tenderness Skin: Denies: Rash Psychiatric: Reports: Anxiety. Denies: Homicidal Ideations, Suicidal Ideations Hematologic/ Lymphatic: Denies: Easy Bruising, Easy Bleeding VTE Information - Inpt Only VTE Present on Admission: No VTE Mechan Device Prophylaxis: None VTE Pharm Prophylaxis ordered?: Yes Patient Problems: Active and Suspected Problems COVID-19 (Acute) Diarrhea (Acute) Hypokalemia (Acute) Objective: GENERAL: cooperative HEENT: Atraumatic; EYES; Anicteric, Normal Conjunctiva NECK; supple, normal thyroid, RESPIRATORY: Diminished to auscultation CARDIOVASCULAR: Regular S1 S2, GI: soft, normoactive bowel sounds, : No Renal angle tenderness; EXTREMITIES: No edema, no clubbing, MUSCULOSKELETAL: no muscle waisting NEURO: Awake; no lateralizing signs. SKIN: No Rash PSYCH; Flat affect - Physical Exam Vitals/I&O's: Vital Signs Temp Pulse Resp BP Pulse Ox 99.4 F H 88 32 H 126/53 H 89 09/16/20 11:11 09/16/20 11:11 09/16/20 11:11 09/16/20 11:11 09/16/20 11:11 Oxygen Delivery Method Room Air Weight: 73.6 kg Body Mass Index (BMI) 33.9 Intake and Output for Last 24 Hours 09/14/20 09/15/20 09/16/20 23:59 23:59 23:59 Intake Total 500 / 500 Balance 500 / 500 Laboratory Results 09/16/20 10:30: WBC 7.6, RBC 5.19, Hgb 14.7, Hct 44.2, MCV 85.2, MCH 28.3, MCHC 33.3, RDW Std Deviation 42.1, RDW Coeff of Henry 13.5, Plt Count 252, MPV 10.5, Immature Gran % (Auto) 0.400, Neut % (Auto) 76.6 H, Lymph % (Auto) 13.4 L, [place] % (Auto) 7.8, Eos % (Auto) 1.5, Baso % (Auto) 0.3, Absolute Neuts (auto) 5.8, Absolute Lymphs (auto) 1.01, Nucleated RBC % 0 09/16/20 10:30: D-Dimer Quant (PE/DVT) 0.52 H* 09/16/20 10:30: Sodium 135 L, Potassium 2.9 L, Chloride 101, Carbon Dioxide 26.0, Anion Gap 8, BUN 13, Creatinine 0.94, Estim Creat Clear Calc 56.39, Est GFR (MDRD) Af Amer 74, Est GFR (MDRD) Non-Af 61, BUN/Creatinine Ratio 13.8, Glucose 115 H, Calcium 8.2 L 09/16/20 10:30: Lactic Acid 1.6 Current Medications Potassium Chloride () 10 meq in 100 mls @ 100 mls/hr IV BOLUS Q1H MELANY Stop: 09/16/20 15:14 Last Admin: 09/16/20 11:26 Dose: 100 mls/hr Documented by: Assessment/Plan All Active Problems Pre-syncope (Resolved) COVID-19 (Acute) Diarrhea (Acute) Hypokalemia (Acute) Pain of right middle finger (Resolved) Joint swelling, finger, hand (Resolved) Cellulitis of finger (Resolved) Nonhealing surgical wound (Resolved) Patient is a 80-year-old lady with recent diagnosis of COVID-19 presented with increasing generalized weakness and diarrhea 1. Acute COVID-19 infection ?Patient presented with increasing generalized weakness and diarrhea. Admitted to regular nursing floor for symptomatic management including IV fluids. Patient was also started on Decadron with consultation placed infectious disease 2. Severe dehydration ?Secondary to patient viral gastroenteritis from COVID-19 infection be rehydrated with IV fluid 3. Hypokalemia -corrected per protocol 4. Hypertension - Blood pressure controlled, home medications continued with dose adjustment as needed 5. Anxiety disorder ?Patient is on SNRI as well as Xanax discontinued 6. GERD ?Patient is on PPI 7. Vitamin B12 deficiency ?Patient is on p.o. vitamin B12 1000 mcg daily did continue 8. Obesity with BMI of 33.9 ?Weight loss advised 9. DVT prophylaxis ?Lovenox Advance planning; did discuss with the patient and family regarding advanced directives as well as CODE STATUS. Did explain the various scenarios involved ( FULL CODE, DNR CCA, DNR CCA with no intubation, and DNR CC and what each meant) patient elected to be DNR CCA no intubation. Order was placed. Time spent on discussion 18 minutes. Inpatient E&M: 98664 Init Hosp L3 Procedures: 85954 Advncd Care Plan 30 Min
--- NOTE | 2020-09-16 11:51 | ED.RN ---
CALLED AND NOTIFIED HER DAUGHTER ANTONETTE THAT SHE IS BEING ADMITTED. ANSWERED QUESTIONS OVER THE PHONE AND DAUGHTER VERBALIZED UNDERSTANDING. THIS RN ALSO NOTIFIEED OF ADMISSION. HE VERBALIZED UNDERSTANDING
--- NOTE | 2020-09-16 12:49 | NURSING ---
cvicu 201
[2020-09-16 13:23] LABS: Magnesium 1.6 mg/dL (1.6-2.6)
[2020-09-16] MEDS: Albuterol 2.5 MG/3 ML VIAL.NEB. INHALATION (19:04)
[2020-09-16] MEDS: Enoxaparin 30 MG/0.3 ML Syringe SC (21:16)
[2020-09-16] MEDS: Timolol 0.5% 5ML OPTH.BTL 1 DRP EACH EYE (21:17)
[2020-09-17] VITALS (19 sets, daily range): BP systolic 129–175; BP diastolic 53–86; PULSE 66–94; RESP 17–29; TEMP 36.3–36.8; O2SAT 93–100
[2020-09-17 04:01] LABS: Absolute Lymphocyte Count 1.01 X10^3/uL (0.83-4.51); Absolute Neutrophil Count 4.7 X10^3/uL (2.0-7.7); Basophil# 0.01 X10^3/uL; Basophil% 0.2 % (0-1); Eosinophil# 0.08 X10^3/uL; Eosinophils% 1.3 % (0-5); Hematocrit 37.1 % (37-47); Hemoglobin 12.1 g/dL (12.0-15.0); Lymphocyte # 1.01 X10^3/ul (4.0); Lymphocyte % 16.3 % (19-41); Mean Corp Hgb Conc 32.6 g/dL (32-36); Mean Corpuscular Hgb 28.1 pg (27.0-32.0); Mean Corpuscular Volume 86.1 fL (81-99); Mean Platelet Vol. 10.3 fl (6.2-12.0); Monocyte# 0.44 X10^3/uL; Monocyte% 7.1 % (0-10); NRBC Flagged by Analyzer 0 % (0-5); Neutrophil # 4.65 X10^3/uL (2.7-7.7); Neutrophil % 74.8 % (47-70); Platelet Count 206 K/mm3 (150-450); RBC Distribution Width CV 13.6 % (11.6-14.6); Red Blood Count 4.31 M/mm3 (4.2-5.4); White Blood Count 6.2 K/mm3 (4.4-11.0)
[2020-09-17 04:59] LABS: AST(SGOT) 18 U/L (15-37); Alanine Aminotransfer ALT/SGPT 20 U/L (13-56); Albumin, Serum 2.4 g/dL (3.2-5.0); Alkaline Phosphatase 59 U/L (45-117); Anion Gap 4 (5-15); BUN 8 mg/dL (7-18); BUN/Creat Ratio 10.5 RATIO (10-20); Calcium,Total 7.2 mg/dL (8.5-10.1); Chloride 109 mmol/L (98-107); Creatinine, Serum 0.76 mg/dL (0.55-1.02); EST Glomerular Filtration Rate 78 mL/min (>60); Est Glom Filt Rate - Afr Amer 94 mL/min (>60); Globulin 3.1 g/dL (2.2-4.2); Glucose 122 mg/dL (74-106); Magnesium 1.5 mg/dL (1.6-2.6); Phosphorus 1.8 mg/dL (2.5-4.9); Potassium 3.9 mmol/L (3.5-5.1); Protein, Total 5.5 g/dL (6.4-8.2); Sodium Level 138 mmol/L (136-145)
--- NOTE | 2020-09-17 07:09 | PN_ITS ---
Patient Problems: Active and Suspected Problems COVID-19 (Acute) Diarrhea (Acute) Hypokalemia (Acute) Reason for Visit: COVID-19 Subjective: Patient is a 80-year-old lady with recent diagnosis of COVID-19 presented with increasing generalized weakness and diarrhea 09/17/2020; patient seen complaining profuse diarrhea Objective: GENERAL: cooperative HEENT: Atraumatic; EYES; Anicteric, Normal Conjunctiva NECK; supple, normal thyroid, RESPIRATORY: Diminished to auscultation CARDIOVASCULAR: Regular S1 S2, GI: soft, normoactive bowel sounds, : No Renal angle tenderness; EXTREMITIES: No edema, no clubbing, MUSCULOSKELETAL: no muscle waisting NEURO: Awake; no lateralizing signs. SKIN: No Rash PSYCH; Flat affect Vitals/I&O's: Vital Signs Temp Pulse Resp BP Pulse Ox 98.1 F 67 20 H 130/60 H 99 09/17/20 04:04 09/17/20 04:04 09/17/20 04:04 09/17/20 04:04 09/17/20 04:04 Oxygen Flow Rate (L/min) 2 Oxygen Delivery Method Nasal Cannula Weight: 70.4 kg Body Mass Index (BMI) 32.4 Intake and Output for Last 24 Hours 09/15/20 09/16/20 09/17/20 23:59 23:59 23:59 Intake Total 2049 / 2049 60 / 60 Output Total 250 / 250 250 / 250 Balance 1800 / 1800 -190 / -190 Laboratory Results 09/16/20 10:30: WBC 7.6, RBC 5.19, Hgb 14.7, Hct 44.2, MCV 85.2, MCH 28.3, MCHC 33.3, RDW Std Deviation 42.1, RDW Coeff of Henry 13.5, Plt Count 252, MPV 10.5, Immature Gran % (Auto) 0.400, Neut % (Auto) 76.6 H, Lymph % (Auto) 13.4 L, [place] % (Auto) 7.8, Eos % (Auto) 1.5, Baso % (Auto) 0.3, Absolute Neuts (auto) 5.8, Absolute Lymphs (auto) 1.01, Nucleated RBC % 0 09/16/20 10:30: D-Dimer Quant (PE/DVT) 0.52 H* 09/16/20 10:30: Sodium 135 L, Potassium 2.9 L, Chloride 101, Carbon Dioxide 26.0, Anion Gap 8, BUN 13, Creatinine 0.94, Estim Creat Clear Calc 56.39, Est GFR (MDRD) Af Amer 74, Est GFR (MDRD) Non-Af 61, BUN/Creatinine Ratio 13.8, Glucose 115 H, Calcium 8.2 L 09/16/20 10:30: Lactic Acid 1.6 09/16/20 10:30: Magnesium 1.6 09/16/20 17:00: Blood Type A POSITIVE 09/17/20 03:50: WBC 6.2, RBC 4.31, Hgb 12.1, Hct 37.1, MCV 86.1, MCH 28.1, MCHC 32.6, RDW Std Deviation 43.0, RDW Coeff of Henry 13.6, Plt Count 206, MPV 10.3, Immature Gran % (Auto) 0.300, Neut % (Auto) 74.8 H, Lymph % (Auto) 16.3 L, [place] % (Auto) 7.1, Eos % (Auto) 1.3, Baso % (Auto) 0.2, Absolute Neuts (auto) 4.7, Absolute Lymphs (auto) 1.01, Nucleated RBC % 0 09/17/20 03:50: Sodium 138, Potassium 3.9, Chloride 109 H, Carbon Dioxide 25.0, Anion Gap 4 L, BUN 8, Creatinine 0.76, Estim Creat Clear Calc 50.70, Est GFR (MDRD) Af Amer 94, Est GFR (MDRD) Non-Af 78, BUN/Creatinine Ratio 10.5, Glucose 122 H, Calcium 7.2 L, Phosphorus 1.8 L, Magnesium 1.5 L, Total Bilirubin 0.30, Direct Bilirubin 0.10, AST 18, ALT 20, Alkaline Phosphatase 59, Total Protein 5.5 L, Albumin 2.4 L, Globulin 3.1 Current Medications Acetaminophen (Acetaminophen 325 Mg Tablet) 650 mg PO Q6H PRN PRN PRN Reason: Pain Score 1-10/Temp > 100.7 F Al Hydroxide/Mg Hydroxide (Mag Hydrox/Al Hydrox/Simeth 30 Ml Udc) 30 ml PO Q6H PRN PRN PRN Reason: Gastric Burning Albuterol Sulfate (Albuterol 2.5 Mg/3 Ml Vial.Neb.) 2.5 mg INHALATION Q6HWA.RT [facility] Last Admin: 09/16/20 19:04 Dose: 2.5 mg Documented by: Alprazolam (Alprazolam 0.25 Mg Tablet) 0.25 mg PO BID PRN PRN PRN Reason: ANXIETY Amlodipine Besylate (Amlodipine 5 Mg Tablet) 5 mg PO DAILY [facility] Cyanocobalamin (Cyanocobalamin 500 Mcg Tablet) 1,000 mcg PO DAILY [facility] Dexamethasone Sodium Phosphate (Dexamethasone 10 Mg/Ml Vial) 6 mg IV DAILY [facility] Enoxaparin Sodium (Enoxaparin 30 Mg/0.3 Ml Syringe) 30 mg SC BID [facility] Last Admin: 09/16/20 21:16 Dose: 30 mg Documented by: Ergocalciferol (Ergocalciferol 50,000 Unit Capsule) 50,000 unit PO Q14D@1000 [facility] Guaifenesin (Guaifenesin 10 Ml Udc (200mg/10ml)) 20 ml PO Q4H PRN PRN PRN Reason: COUGH Potassium Chloride/Dextrose/Sod Cl () 1,000 mls @ 100 mls/hr IV .Q10H [facility] Stop: 09/17/20 18:57 Last Admin: 09/17/20 00:18 Dose: 100 mls/hr Documented by: Melatonin (Melatonin 3 Mg Tablet) 3 mg PO QHS PRN PRN PRN Reason: INSOMNIA Nitroglycerin (Nitroglycerin (Inpatient Use) 0.4 Mg Tab.Subl) 0.4 mg SUBLINGUAL Q5M PRN PRN Reason: CARDIAC/CHEST PAIN Ondansetron HCl (Ondansetron 4 Mg/2 Ml Vial) 4 mg IV Q8H PRN PRN PRN Reason: NAUSEA/VOMITING Pantoprazole Sodium (Pantoprazole Sodium 40 Mg Tablet) 40 mg PO DAILY [facility] Penicillin V Potassium (Penicillin Vk 250 Mg Tablet) 500 mg PO DAILY [facility] Potassium Chloride (Potassium Chloride 20 Meq Tablet) [facility] Last Admin: 09/16/20 17:01 Dose: 20 meq Documented by: Senna/Docusate Sodium (Senna/Docusate Sodium 1 Tablet) 2 tablet PO BID PRN PRN PRN Reason: Constipation Sodium Chloride (0.9% Saline Lock 10 Ml Syringe) 10 - 40 ml IV UD PRN PRN Reason: SALINE FLUSH Throat Lozenges (Benzocaine/Menthol 1 Lozenge) 1 lozenge MUCOUS MEM Q2H PRN PRN PRN Reason: SORE THROAT Timolol Maleate (Timolol 0.5% 5ml Opth.Btl) 1 drop EACH EYE BID MELANY Last Admin: 09/16/20 21:17 Dose: 1 drop Documented by: Venlafaxine HCl (Venlafaxine Xr 150 Mg Capsule) 150 mg PO DAILY MELANY STROKE Vital Signs/Narrative: Vital Signs Temp Pulse Resp BP Pulse Ox 09/17/20 04:04 98.1 F 67 20 H 130/60 H 99 09/17/20 03:27 66 Medical Necessity - Tobacco Use Smoking Status: Never smoker Assessment/Plan All Active Problems Pre-syncope (Resolved) COVID-19 (Acute) Diarrhea (Acute) Hypokalemia (Acute) Pain of right middle finger (Resolved) Joint swelling, finger, hand (Resolved) Cellulitis of finger (Resolved) Nonhealing surgical wound (Resolved) Patient is a 80-year-old lady with recent diagnosis of COVID-19 presented with increasing generalized weakness and diarrhea 1. Acute COVID-19 infection ?Patient presented with increasing generalized weakness and diarrhea. Admitted to regular nursing floor for symptomatic management including IV fluids. Patient was also started on Decadron with consultation placed infectious disease - 09/17/2020; patient seen complaining profuse diarrhea. awaiting input from infectious disease 2. Severe dehydration ?Secondary to patient viral gastroenteritis from COVID-19 infection be rehydrated with IV fluid 3. Hypokalemia -corrected per protocol 4. Hypertension - Blood pressure controlled, home medications continued with dose adjustment as needed 5. Anxiety disorder ?Patient is on SNRI as well as Xanax discontinued 6. GERD ?Patient is on PPI 7. Vitamin B12 deficiency ?Patient is on p.o. vitamin B12 1000 mcg daily did continue 8. Obesity with BMI of 33.9 ?Weight loss advised 9. DVT prophylaxis ?Lovenox Inpatient E&M: 83826 Subs Hosp L2
[2020-09-17] MEDS: Albuterol 2.5 MG/3 ML VIAL.NEB. INHALATION (08:32)
[2020-09-17] MEDS: Enoxaparin 30 MG/0.3 ML Syringe SC ×2 (09:08→19:42)
[2020-09-17] MEDS: amLODIPine 5 MG Tablet PO (09:08)
[2020-09-17] MEDS: Venlafaxine XR 150 MG Capsule PO (09:08)
[2020-09-17] MEDS: Cyanocobalamin 500 MCG Tablet 1000 MCG PO (09:08)
[2020-09-17] MEDS: Pantoprazole Sodium 40 MG Tablet PO (09:08)
[2020-09-17] MEDS: Penicillin Vk 250 MG Tablet 500 MG PO (09:08)
[2020-09-17] MEDS: dexAMETHasone 10 MG/ML Vial 6 MG IV (09:09)
[2020-09-17] MEDS: Timolol 0.5% 5ML OPTH.BTL 1 DRP EACH EYE ×2 (09:10→19:42)
--- NOTE | 2020-09-17 14:33 | NURSING ---
RN CM Assessment Introduced role of RN CM to patient.? Patient is alert, oriented and able?to participate in RN CM Assessment. ?Care providers, pharmacy, and demographics verified. Admit Dx: COVID19 Re-Admit: No Barriers/Issues: Seen in ER 09/12/2020- states was tested for COVID and told positive then. Has been sleeping with her but states that her has not displayed any s/s illness. 81yo and denies any him having any other health issues, has not been tested for COVID. States that they have neighbor support to assist with getting groceries, ect. while quarantined. Patient would like to return home upon DC, states she can quarantine from her inside the home if she has to- sleeping in separate bed and using separate bathroom. PCP: Kristal Gutierrez Specialists: Radha Henson Preferred Pharmacy: [facility] Insurance: [employer], I AM AT Rx Benefit:?Yes ?LNOK: Victoriano Ugarte LW/HPOA: Has a LW on file that states HPOA- Victoriano Ugarte Living Arrangements:? Lives with her in a ranch home, 3 steps to enter. ADL?s: Ambulates independently but uses a walking stick in yard. Independent with ADLs. Transportation: Both patient and drive. will transport upon DC. DME: Nebulizer, grab bars in home. HHC: Past SNF: None Goal: Home, states that she is okay with HHC if recommended. Has no DME or HHC company preference. States her has used [employer] in the past. Patient currently on O2 1LPM, not on home O2. Aware RNCM will continue to follow for any emerging needs. DC PLAN: Home with possible HH PT- RNCM to follow on ambulatory status, F/u on O2 weaning. EBER Perez
--- NOTE | 2020-09-17 16:44 | CON.PCM_ITS ---
Problem List (1) COVID-19 Status: Acute Reason for Consult: covid Consulted by: Dr. Sapp History of Present Illness: The patient is a 80 year old F presented with sx starting 09/12 with aches, headache, severe diarrhea, then mild cough/SOB. Came to ED, no fever, sat as low as 87%, admitted on dex. Feeling a little better today. Full ROS performed and neg except as noted above. - Medical History Past Medical History (Chronic Problems): Chronic Problems Hypertension (Chronic) Anxiety and depression (Chronic) Allergies/Adverse Reactions: Allergies oxycodone HCl [From Percodan] Adverse Reaction (Verified 09/16/20 10:11) Nausea oxycodone terephthalate [From Percodan] Adverse Reaction (Verified 09/16/20 10:11) Nausea Sulfa (Sulfonamide Antibiotics) Adverse Reaction (Verified 09/16/20 10:11) Nausea/Vom/Diarrhea PEROXIDE Adverse Reaction (Uncoded 09/16/20 10:11) IN TOOTHEPASTE- CAUSED BLISTERS. Home Medications: Ambulatory Orders Medication Instructions Recorded ALPRAZolam [Xanax] 0.125 - 0.25 mg PO BID PRN PRN 10/14/15 Amlodipine [Norvasc] 5 mg PO DAILY 10/14/15 Timolol 0.5% [Timoptic] 1 drop EACH EYE BID 10/14/15 Ergocalciferol [Vitamin D] 50,000 unit PO UD 01/26/16 Acetaminophen [Tylenol Extra 500 mg PO QHS 11/03/18 Strength] Cyanocobalamin (Vitamin B-12) 1,000 mcg PO DAILY 11/03/18 [Vitamin B-12] Fluticasone/Vilanterol [Breo 1 puff INHALATION DAILY 11/03/18 Ellipta 200-25 Mcg INH] Omeprazole 40 mg PO DAILY 11/03/18 Penicillin V Potassium 500 mg PO DAILY 09/12/20 Venlafaxine HCl [Venlafaxine HCl 150 mg PO DAILY 09/12/20 ER] - Social History Tobacco Use: non-smoker Vital Signs Temp Pulse Resp BP Pulse Ox 98.1 F 79 25 H 136/57 H 97 09/17/20 14:14 09/17/20 15:00 09/17/20 14:14 09/17/20 14:14 09/17/20 14:14 Oxygen Flow Rate (L/min) 2 Oxygen Delivery Method Nasal Cannula Weight: 70.4 kg Body Mass Index (BMI) 32.4 Laboratory Tests Past 24 Hrs 09/16/20 09/17/20 09/17/20 17:00 03:50 03:50 WBC 6.2 RBC 4.31 Hgb 12.1 Hct 37.1 MCV 86.1 MCH 28.1 MCHC 32.6 RDW Std Deviation 43.0 RDW Coeff of Henry 13.6 Plt Count 206 MPV 10.3 Immature Gran % (Auto) 0.300 Neut % (Auto) 74.8 H Lymph % (Auto) 16.3 L Grainger % (Auto) 7.1 Eos % (Auto) 1.3 Baso % (Auto) 0.2 Absolute Neuts (auto) 4.7 Absolute Lymphs (auto) 1.01 Nucleated RBC % 0 Sodium 138 Potassium 3.9 Chloride 109 H Carbon Dioxide 25.0 Anion Gap 4 L BUN 8 Creatinine 0.76 Estim Creat Clear Calc 50.70 Est GFR (MDRD) Af Amer 94 Est GFR (MDRD) Non-Af 78 BUN/Creatinine Ratio 10.5 Glucose 122 H Calcium 7.2 L Phosphorus 1.8 L Magnesium 1.5 L Total Bilirubin 0.30 Direct Bilirubin 0.10 AST 18 ALT 20 Alkaline Phosphatase 59 Total Protein 5.5 L Albumin 2.4 L Globulin 3.1 Blood Type A POSITIVE - Other Studies Radiology: [] reviewed Other Studies: [] Route of nutrition/ use of supplements: [] Nutritional Intake: [] IV Site: [] Leyva Catheter: [] - Physical Exam General: Alert, Oriented x3, Cooperative HEENT: Atraumatic, PERRLA, EOMI Neck: Supple, No Nodes Lungs: Diminished Cardiovascular: Regular rate, Regular Rhythm Abdomen: Soft, Non Tender, Non-Distended Extremities: No edema Skin: No rashes IV Site: Peripheral, without redness Musculoskeletal: No Tenderness to Palpation of Joints or Extremities Neurological: Cranial nerves II-XII grossly intact - Assessment/Plan Antibiotics: [] Assessment/Plan: [] Active and Suspected Problems COVID-19 (Acute) Diarrhea (Acute) Hypokalemia (Acute) Covid with hypoxia - on 2L. Will start remdesivir, cont dex, will change ot po. On lovenox bid 30mg proph. Will follow, thank you
[2020-09-17] MEDS: 0.9% Saline Lock 10 ML Syringe IV (19:44)
[2020-09-18] VITALS (10 sets, daily range): BP systolic 113–176; BP diastolic 70–92; PULSE 69–88; RESP 18–20; TEMP 36.3–36.9; O2SAT 95–98
[2020-09-18] MEDS: 0.9% Saline Lock 10 ML Syringe IV ×2 (04:11→10:25)
[2020-09-18 04:29] LABS: Hematocrit 43.9 % (37-47); Hemoglobin 13.9 g/dL (12.0-15.0); Mean Corp Hgb Conc 31.7 g/dL (32-36); Mean Corpuscular Hgb 28.1 pg (27.0-32.0); Mean Corpuscular Volume 88.7 fL (81-99); Mean Platelet Vol. 10.4 fl (6.2-12.0); Platelet Count 252 K/mm3 (150-450); RBC Distribution Width CV 13.5 % (11.6-14.6); Red Blood Count 4.95 M/mm3 (4.2-5.4); White Blood Count 3.8 K/mm3 (4.4-11.0)
[2020-09-18 04:45] LABS: ALB/GLOB Ratio 0.7 RATIO (0.9-2.4); AST(SGOT) 16 U/L (15-37); Alanine Aminotransfer ALT/SGPT 25 U/L (13-56); Albumin, Serum 2.8 g/dL (3.2-5.0); Alkaline Phosphatase 66 U/L (45-117); Anion Gap 6 (5-15); BUN 6 mg/dL (7-18); BUN/Creat Ratio 7.9 RATIO (10-20); Chloride 109 mmol/L (98-107); Creatinine, Serum 0.76 mg/dL (0.55-1.02); EST Glomerular Filtration Rate 78 mL/min (>60); Est Glom Filt Rate - Afr Amer 94 mL/min (>60); Globulin 3.8 g/dL (2.2-4.2); Glucose 120 mg/dL (74-106); Potassium 3.8 mmol/L (3.5-5.1); Protein, Total 6.6 g/dL (6.4-8.2); Sodium Level 141 mmol/L (136-145)
--- NOTE | 2020-09-18 07:07 | PCM.PN.HOSP ---
Patient Problems: Active and Suspected Problems COVID-19 (Acute) Diarrhea (Acute) Hypokalemia (Acute) Reason for Visit: COVID-19 Subjective: Patient is a 80-year-old lady with recent diagnosis of COVID-19 presented with increasing generalized weakness and diarrhea Patient seen admitted some improvement in overall condition. Diarrhea is subsiding. However remains weak. Requested for PT OT eval. Objective: GENERAL: cooperative HEENT: Atraumatic; EYES; Anicteric, Normal Conjunctiva NECK; supple, normal thyroid, RESPIRATORY: Diminished to auscultation CARDIOVASCULAR: Regular S1 S2, GI: soft, normoactive bowel sounds, : No Renal angle tenderness; EXTREMITIES: No edema, no clubbing, MUSCULOSKELETAL: no muscle waisting NEURO: Awake; no lateralizing signs. SKIN: No Rash PSYCH; Flat affect Vitals/I&O's: Vital Signs Temp Pulse Resp BP Pulse Ox 97.9 F 74 20 H 153/84 H 95 09/18/20 04:10 09/18/20 04:10 09/18/20 04:10 09/18/20 04:10 09/18/20 04:10 Oxygen Flow Rate (L/min) 2 Oxygen Delivery Method Room Air Weight: 70.4 kg Body Mass Index (BMI) 32.4 Intake and Output for Last 24 Hours 09/16/20 09/17/20 09/18/20 23:59 23:59 23:59 Intake Total 2049 / 2049 2573.33 / 2573.33 Output Total 250 / 250 1225 / 1225 550 / 550 Balance 1800 / 1800 1348.33 / 1348.33 -550 / -550 Laboratory Results 09/18/20 04:00: WBC 3.8 L, RBC 4.95, Hgb 13.9, Hct 43.9, MCV 88.7, MCH 28.1, MCHC 31.7 L, RDW Std Deviation 44.0 H, RDW Coeff of Henry 13.5, Plt Count 252, MPV 10.4 09/18/20 04:00: Sodium 141, Potassium 3.8, Chloride 109 H, Carbon Dioxide 26.0, Anion Gap 6, BUN 6 L, Creatinine 0.76, Estim Creat Clear Calc 50.70, Est GFR (MDRD) Af Amer 94, Est GFR (MDRD) Non-Af 78, BUN/Creatinine Ratio 7.9 L, Glucose 120 H, Calcium 8.0 L, Total Bilirubin 0.30, AST 16, ALT 25, Alkaline Phosphatase 66, Total Protein 6.6, Albumin 2.8 L, Globulin 3.8, Albumin/Globulin Ratio 0.7 L Current Medications Acetaminophen (Acetaminophen 325 Mg Tablet) 650 mg PO Q6H PRN PRN PRN Reason: Pain Score 1-10/Temp > 100.7 F Al Hydroxide/Mg Hydroxide (Mag Hydrox/Al Hydrox/Simeth 30 Ml Udc) 30 ml PO Q6H PRN PRN PRN Reason: Gastric Burning Albuterol Sulfate (Albuterol 2.5 Mg/3 Ml Vial.Neb.) 2.5 mg INHALATION Q2H PRN PRN PRN Reason: SOB &/OR WHEEZING Alprazolam (Alprazolam 0.25 Mg Tablet) 0.25 mg PO BID PRN PRN PRN Reason: ANXIETY Amlodipine Besylate (Amlodipine 5 Mg Tablet) 5 mg PO DAILY [facility] Last Admin: 09/17/20 09:08 Dose: 5 mg Documented by: Cyanocobalamin (Cyanocobalamin 500 Mcg Tablet) 1,000 mcg PO DAILY [facility] Last Admin: 09/17/20 09:08 Dose: 1,000 mcg Documented by: Dexamethasone (Dexamethasone 4 Mg Tablet) 6 mg PO DAILY@0800 [facility] Stop: 09/26/20 08:01 Enoxaparin Sodium (Enoxaparin 30 Mg/0.3 Ml Syringe) 30 mg SC BID [facility] Last Admin: 09/17/20 19:42 Dose: 30 mg Documented by: Ergocalciferol (Ergocalciferol 50,000 Unit Capsule) 50,000 unit PO Q14D@1000 [facility] Guaifenesin (Guaifenesin 10 Ml Udc (200mg/10ml)) 20 ml PO Q4H PRN PRN PRN Reason: COUGH Remdesivir 100 mg/ Sodium (Chloride) 250 mls @ 125 mls/hr IV DAILY [facility]; Protocol Stop: 09/21/20 11:59 Melatonin (Melatonin 3 Mg Tablet) 3 mg PO QHS PRN PRN PRN Reason: INSOMNIA Nitroglycerin (Nitroglycerin (Inpatient Use) 0.4 Mg Tab.Subl) 0.4 mg SUBLINGUAL Q5M PRN PRN Reason: CARDIAC/CHEST PAIN Ondansetron HCl (Ondansetron 4 Mg/2 Ml Vial) 4 mg IV Q8H PRN PRN PRN Reason: NAUSEA/VOMITING Pantoprazole Sodium (Pantoprazole Sodium 40 Mg Tablet) 40 mg PO DAILY [facility] Last Admin: 09/17/20 09:08 Dose: 40 mg Documented by: Penicillin V Potassium (Penicillin Vk 250 Mg Tablet) 500 mg PO DAILY [facility] Last Admin: 09/17/20 09:08 Dose: 500 mg Documented by: Potassium Chloride (Potassium Chloride 20 Meq Tablet) 20 meq PO BIDCM [facility] Last Admin: 09/17/20 16:51 Dose: 20 meq Documented by: Senna/Docusate Sodium (Senna/Docusate Sodium 1 Tablet) 2 tablet PO BID PRN PRN PRN Reason: Constipation Sodium Chloride (0.9% Saline Lock 10 Ml Syringe) 10 - 40 ml IV UD PRN PRN Reason: SALINE FLUSH Last Admin: 09/18/20 04:11 Dose: 20 ml Documented by: Sodium Chloride (0.9% Saline Lock 10 Ml Syringe) 10 - 40 ml IV UD PRN PRN Reason: SALINE FLUSH Throat Lozenges (Benzocaine/Menthol 1 Lozenge) 1 lozenge MUCOUS MEM Q2H PRN PRN PRN Reason: SORE THROAT Timolol Maleate (Timolol 0.5% 5ml Opth.Btl) 1 drop EACH EYE BID [facility] Last Admin: 09/17/20 19:42 Dose: 1 drop Documented by: Venlafaxine HCl (Venlafaxine Xr 150 Mg Capsule) 150 mg PO DAILY [facility] Last Admin: 09/17/20 09:08 Dose: 150 mg Documented by: STROKE Vital Signs/Narrative: Vital Signs Temp Pulse Resp BP Pulse Ox 09/18/20 04:10 97.9 F 74 20 H 153/84 H 95 Medical Necessity - Tobacco Use Smoking Status: Never smoker Assessment/Plan All Active Problems Pre-syncope (Resolved) COVID-19 (Acute) Diarrhea (Acute) Hypokalemia (Acute) Pain of right middle finger (Resolved) Joint swelling, finger, hand (Resolved) Cellulitis of finger (Resolved) Nonhealing surgical wound (Resolved) Patient is a 80-year-old lady with recent diagnosis of COVID-19 presented with increasing generalized weakness and diarrhea 1. Acute COVID-19 infection ?Patient presented with increasing generalized weakness and diarrhea. Admitted to regular nursing floor for symptomatic management including IV fluids. Patient was also started on Decadron with consultation placed infectious disease - 09/17/2020; patient seen complaining profuse diarrhea. awaiting input from infectious disease ?09/18/2020: Diarrhea subsiding. Was started on remdesivir the day prior. 2. Severe dehydration ?Secondary to patient viral gastroenteritis from COVID-19 infection be rehydrated with IV fluid 3. Hypokalemia -corrected per protocol 4. Hypertension - Blood pressure controlled, home medications continued with dose adjustment as needed 5. Anxiety disorder ?Patient is on SNRI as well as Xanax discontinued 6. GERD ?Patient is on PPI 7. Vitamin B12 deficiency ?Patient is on p.o. vitamin B12 1000 mcg daily did continue 8. Obesity with BMI of 33.9 ?Weight loss advised 9. DVT prophylaxis ?Lovenox 10. Physical deconditioning - Requested for PT OT eval and [employer] social worker to assist with discharge planning Inpatient E&M: [id number] Subs Hosp L2
[2020-09-18] MEDS: dexAMETHasone 4 MG Tablet 6 MG PO (07:49)
[2020-09-18] MEDS: Venlafaxine XR 150 MG Capsule PO (10:25)
[2020-09-18] MEDS: Cyanocobalamin 500 MCG Tablet 1000 MCG PO (10:25)
[2020-09-18] MEDS: Pantoprazole Sodium 40 MG Tablet PO (10:25)
[2020-09-18] MEDS: Penicillin Vk 250 MG Tablet 500 MG PO (10:25)
[2020-09-18] MEDS: Enoxaparin 30 MG/0.3 ML Syringe SC ×2 (10:25→20:03)
[2020-09-18] MEDS: amLODIPine 5 MG Tablet PO (10:25)
[2020-09-18] MEDS: Timolol 0.5% 5ML OPTH.BTL 1 DRP EACH EYE ×2 (10:26→20:05)
--- NOTE | 2020-09-18 11:39 | PCM.PN.ID ---
Patient Problems: Active and Suspected Problems COVID-19 (Acute) Diarrhea (Acute) Hypokalemia (Acute) Subjective: Feeling better, no fever, on RA - Physical Exam Vitals/I&O's: Vital Signs Temp Pulse Resp BP Pulse Ox 98.5 F 69 20 H 158/70 H 98 09/18/20 10:10 09/18/20 11:15 09/18/20 10:10 09/18/20 10:10 09/18/20 10:10 Oxygen Flow Rate (L/min) 2 Oxygen Delivery Method Room Air Weight: 70.4 kg Body Mass Index (BMI) 32.4 Intake and Output for Last 24 Hours 09/16/20 09/17/20 09/18/20 23:59 23:59 23:59 Intake Total 2049 / 2049 2573.33 / 2573.33 Output Total 250 / 250 1225 / 1225 550 / 550 Balance 1800 / 1800 1348.33 / 1348.33 -550 / -550 General: Alert, Cooperative, No apparent distress Lungs: Clear to auscultation, Normal air movement Cardiovascular: Regular rate, Regular Rhythm Abdomen: Soft, Non Tender, Non-Distended Skin: No rashes Microbiology Past 72 Hours 09/16/20 10:30 Blood Culture (Wb) - Right Hand Blood Culture - Preliminary No growth in 48 hours. 09/16/20 10:30 Blood Culture (Wb) - Anticubital Right Blood Culture - Preliminary No growth in 48 hours. Laboratory Results 09/18/20 04:00: WBC 3.8 L, RBC 4.95, Hgb 13.9, Hct 43.9, MCV 88.7, MCH 28.1, MCHC 31.7 L, RDW Std Deviation 44.0 H, RDW Coeff of Henry 13.5, Plt Count 252, MPV 10.4 09/18/20 04:00: Sodium 141, Potassium 3.8, Chloride 109 H, Carbon Dioxide 26.0, Anion Gap 6, BUN 6 L, Creatinine 0.76, Estim Creat Clear Calc 50.70, Est GFR (MDRD) Af Amer 94, Est GFR (MDRD) Non-Af 78, BUN/Creatinine Ratio 7.9 L, Glucose 120 H, Calcium 8.0 L, Total Bilirubin 0.30, AST 16, ALT 25, Alkaline Phosphatase 66, Total Protein 6.6, Albumin 2.8 L, Globulin 3.8, Albumin/Globulin Ratio 0.7 L Current Medications Acetaminophen (Acetaminophen 325 Mg Tablet) 650 mg PO Q6H PRN PRN PRN Reason: Pain Score 1-10/Temp > 100.7 F Al Hydroxide/Mg Hydroxide (Mag Hydrox/Al Hydrox/Simeth 30 Ml Udc) 30 ml PO Q6H PRN PRN PRN Reason: Gastric Burning Albuterol Sulfate (Albuterol 2.5 Mg/3 Ml Vial.Neb.) 2.5 mg INHALATION Q2H PRN PRN PRN Reason: SOB &/OR WHEEZING Alprazolam (Alprazolam 0.25 Mg Tablet) 0.25 mg PO BID PRN PRN PRN Reason: ANXIETY Amlodipine Besylate (Amlodipine 5 Mg Tablet) 5 mg PO DAILY [facility] Last Admin: 09/18/20 10:25 Dose: 5 mg Documented by: Cyanocobalamin (Cyanocobalamin 500 Mcg Tablet) 1,000 mcg PO DAILY [facility] Last Admin: 09/18/20 10:25 Dose: 1,000 mcg Documented by: Dexamethasone (Dexamethasone 4 Mg Tablet) 6 mg PO DAILY@0800 [facility] Stop: 09/26/20 08:01 Last Admin: 09/18/20 07:49 Dose: 6 mg Documented by: Enoxaparin Sodium (Enoxaparin 30 Mg/0.3 Ml Syringe) 30 mg SC BID [facility] Last Admin: 09/18/20 10:25 Dose: 30 mg Documented by: Ergocalciferol (Ergocalciferol 50,000 Unit Capsule) 50,000 unit PO Q14D@1000 [facility] Guaifenesin (Guaifenesin 10 Ml Udc (200mg/10ml)) 20 ml PO Q4H PRN PRN PRN Reason: COUGH Remdesivir 100 mg/ Sodium (Chloride) 250 mls @ 125 mls/hr IV DAILY [facility]; Protocol Stop: 09/21/20 11:59 Last Admin: 09/18/20 10:24 Dose: 125 mls/hr Documented by: Melatonin (Melatonin 3 Mg Tablet) 3 mg PO QHS PRN PRN PRN Reason: INSOMNIA Nitroglycerin (Nitroglycerin (Inpatient Use) 0.4 Mg Tab.Subl) 0.4 mg SUBLINGUAL Q5M PRN PRN Reason: CARDIAC/CHEST PAIN Ondansetron HCl (Ondansetron 4 Mg/2 Ml Vial) 4 mg IV Q8H PRN PRN PRN Reason: NAUSEA/VOMITING Pantoprazole Sodium (Pantoprazole Sodium 40 Mg Tablet) 40 mg PO DAILY [facility] Last Admin: 09/18/20 10:25 Dose: 40 mg Documented by: Penicillin V Potassium (Penicillin Vk 250 Mg Tablet) 500 mg PO DAILY [facility] Last Admin: 09/18/20 10:25 Dose: 500 mg Documented by: Potassium Chloride (Potassium Chloride 20 Meq Tablet) 20 meq PO BIDCM [facility] Last Admin: 09/18/20 07:49 Dose: 20 meq Documented by: Senna/Docusate Sodium (Senna/Docusate Sodium 1 Tablet) 2 tablet PO BID PRN PRN PRN Reason: Constipation Sodium Chloride (0.9% Saline Lock 10 Ml Syringe) 10 - 40 ml IV UD PRN PRN Reason: SALINE FLUSH Last Admin: 09/18/20 10:25 Dose: 10 ml Documented by: Sodium Chloride (0.9% Saline Lock 10 Ml Syringe) 10 - 40 ml IV UD PRN PRN Reason: SALINE FLUSH Throat Lozenges (Benzocaine/Menthol 1 Lozenge) 1 lozenge MUCOUS MEM Q2H PRN PRN PRN Reason: SORE THROAT Timolol Maleate (Timolol 0.5% 5ml Opth.Btl) 1 drop EACH EYE BID [facility] Last Admin: 09/18/20 10:26 Dose: 1 drop Documented by: Venlafaxine HCl (Venlafaxine Xr 150 Mg Capsule) 150 mg PO DAILY [facility] Last Admin: 09/18/20 10:25 Dose: 150 mg Documented by: Medical Necessity - Tobacco Use Smoking Status: Never smoker Route of nutrition/ use of supplements: [] Nutritional Intake: [] IV Site: [] Leyva Catheter: [] - Assessment/Plan Antibiotics: [] Assessment/Plan: [] Active and Suspected Problems COVID-19 (Acute) Diarrhea (Acute) Hypokalemia (Acute) Covid with hypoxia - Now on RA, cont remdesivir, cont dex po. On lovenox bid 30mg proph. Ok for discharge home to complete course of po dex, 10 days total. Will follow
--- NOTE | 2020-09-18 13:22 | HP.PCM_ITS ---
History of Present Illness The patient is a 80 year old F [] Past Medical History Past Medical History (Chronic Problems): Chronic Problems Hypertension (Chronic) Anxiety and depression (Chronic) Allergies oxycodone HCl [From Percodan] Adverse Reaction (Verified 09/16/20 10:11) Nausea oxycodone terephthalate [From Percodan] Adverse Reaction (Verified 09/16/20 10:11) Nausea Sulfa (Sulfonamide Antibiotics) Adverse Reaction (Verified 09/16/20 10:11) Nausea/Vom/Diarrhea PEROXIDE Adverse Reaction (Uncoded 09/16/20 10:11) IN TOOTHEPASTE- CAUSED BLISTERS. Home Medications: Ambulatory Orders Medication Instructions Recorded ALPRAZolam [Xanax] 0.125 - 0.25 mg PO BID PRN PRN 10/14/15 Amlodipine [Norvasc] 5 mg PO DAILY 10/14/15 Timolol 0.5% [Timoptic] 1 drop EACH EYE BID 10/14/15 Ergocalciferol [Vitamin D] 50,000 unit PO UD 01/26/16 Acetaminophen [Tylenol Extra 500 mg PO QHS 11/03/18 Strength] Cyanocobalamin (Vitamin B-12) 1,000 mcg PO DAILY 11/03/18 [Vitamin B-12] Fluticasone/Vilanterol [Breo 1 puff INHALATION DAILY 11/03/18 Ellipta 200-25 Mcg INH] Omeprazole 40 mg PO DAILY 11/03/18 Penicillin V Potassium 500 mg PO DAILY 09/12/20 Venlafaxine HCl [Venlafaxine HCl 150 mg PO DAILY 09/12/20 ER] Surgical History: noncontributory, - - Mastectomy Psychiatric History: Depression DATA POWER CONSULTANT History: No pertinent DATA POWER CONSULTANT history Lives: Spouse/ Significant Other Smoking Status: Never smoker - *Family History Sibling History Items: Hypertension Maternal History Items: No pertinent history - Mother of old age 92 Paternal History Items: Heart Disease, No pertinent history - of heart attack at age 45 Patient Problems: Active and Suspected Problems COVID-19 (Acute) Diarrhea (Acute) Hypokalemia (Acute) - Physical Exam Vitals/I&O's: Vital Signs Temp Pulse Resp BP Pulse Ox 98.5 F 69 20 H 158/70 H 98 09/18/20 10:10 09/18/20 11:15 09/18/20 10:10 09/18/20 10:10 09/18/20 10:10 Oxygen Flow Rate (L/min) 2 Oxygen Delivery Method Room Air Weight: 70.4 kg Body Mass Index (BMI) 32.4 Intake and Output for Last 24 Hours 09/16/20 09/17/20 09/18/20 23:59 23:59 23:59 Intake Total 2049 / 2049 2573.33 / 2573.33 610 / 610 Output Total 250 / 250 1225 / 1225 550 / 550 Balance 1800 / 1800 1348.33 / 1348.33 60 / 60 Microbiology Past 72 Hours 09/16/20 10:30 Blood Culture (Wb) - Right Hand Blood Culture - Preliminary No growth in 48 hours. 09/16/20 10:30 Blood Culture (Wb) - Anticubital Right Blood Culture - Preliminary No growth in 48 hours. Laboratory Results 09/18/20 04:00: WBC 3.8 L, RBC 4.95, Hgb 13.9, Hct 43.9, MCV 88.7, MCH 28.1, MCHC 31.7 L, RDW Std Deviation 44.0 H, RDW Coeff of Henry 13.5, Plt Count 252, MPV 10.4 09/18/20 04:00: Sodium 141, Potassium 3.8, Chloride 109 H, Carbon Dioxide 26.0, Anion Gap 6, BUN 6 L, Creatinine 0.76, Estim Creat Clear Calc 50.70, Est GFR (MDRD) Af Amer 94, Est GFR (MDRD) Non-Af 78, BUN/Creatinine Ratio 7.9 L, Glucose 120 H, Calcium 8.0 L, Total Bilirubin 0.30, AST 16, ALT 25, Alkaline Phosphatase 66, Total Protein 6.6, Albumin 2.8 L, Globulin 3.8, Albumin/Globulin Ratio 0.7 L Current Medications Acetaminophen (Acetaminophen 325 Mg Tablet) 650 mg PO Q6H PRN PRN PRN Reason: Pain Score 1-10/Temp > 100.7 F Al Hydroxide/Mg Hydroxide (Mag Hydrox/Al Hydrox/Simeth 30 Ml Udc) 30 ml PO Q6H PRN PRN PRN Reason: Gastric Burning Albuterol Sulfate (Albuterol 2.5 Mg/3 Ml Vial.Neb.) 2.5 mg INHALATION Q2H PRN PRN PRN Reason: SOB &/OR WHEEZING Alprazolam (Alprazolam 0.25 Mg Tablet) 0.25 mg PO BID PRN PRN PRN Reason: ANXIETY Amlodipine Besylate (Amlodipine 5 Mg Tablet) 5 mg PO DAILY [facility] Last Admin: 09/18/20 10:25 Dose: 5 mg Documented by: Cyanocobalamin (Cyanocobalamin 500 Mcg Tablet) 1,000 mcg PO DAILY [facility] Last Admin: 09/18/20 10:25 Dose: 1,000 mcg Documented by: Dexamethasone (Dexamethasone 4 Mg Tablet) 6 mg PO DAILY@0800 [facility] Stop: 09/26/20 08:01 Last Admin: 09/18/20 07:49 Dose: 6 mg Documented by: Enoxaparin Sodium (Enoxaparin 30 Mg/0.3 Ml Syringe) 30 mg SC BID [facility] Last Admin: 09/18/20 10:25 Dose: 30 mg Documented by: Ergocalciferol (Ergocalciferol 50,000 Unit Capsule) 50,000 unit PO Q14D@1000 [facility] Guaifenesin (Guaifenesin 10 Ml Udc (200mg/10ml)) 20 ml PO Q4H PRN PRN PRN Reason: COUGH Remdesivir 100 mg/ Sodium (Chloride) 250 mls @ 125 mls/hr IV DAILY [facility]; Janusz col Stop: 09/21/20 11:59 Last Infusion: 09/18/20 12:24 Dose: Infused Documented by: Melatonin (Melatonin 3 Mg Tablet) 3 mg PO QHS PRN PRN PRN Reason: INSOMNIA Nitroglycerin (Nitroglycerin (Inpatient Use) 0.4 Mg Tab.Subl) 0.4 mg SUBLINGUAL Q5M PRN PRN Reason: CARDIAC/CHEST PAIN Ondansetron HCl (Ondansetron 4 Mg/2 Ml Vial) 4 mg IV Q8H PRN PRN PRN Reason: NAUSEA/VOMITING Pantoprazole Sodium (Pantoprazole Sodium 40 Mg Tablet) 40 mg PO DAILY [facility] Last Admin: 09/18/20 10:25 Dose: 40 mg Documented by: Penicillin V Potassium (Penicillin Vk 250 Mg Tablet) 500 mg PO DAILY [facility] Last Admin: 09/18/20 10:25 Dose: 500 mg Documented by: Potassium Chloride (Potassium Chloride 20 Meq Tablet) 20 meq PO BIDCM [facility] Last Admin: 09/18/20 07:49 Dose: 20 meq Documented by: Senna/Docusate Sodium (Senna/Docusate Sodium 1 Tablet) 2 tablet PO BID PRN PRN PRN Reason: Constipation Sodium Chloride (0.9% Saline Lock 10 Ml Syringe) 10 - 40 ml IV UD PRN PRN Reason: SALINE FLUSH Last Admin: 09/18/20 10:25 Dose: 10 ml Documented by: Sodium Chloride (0.9% Saline Lock 10 Ml Syringe) 10 - 40 ml IV UD PRN PRN Reason: SALINE FLUSH Throat Lozenges (Benzocaine/Menthol 1 Lozenge) 1 lozenge MUCOUS MEM Q2H PRN PRN PRN Reason: SORE THROAT Timolol Maleate (Timolol 0.5% 5ml Opth.Btl) 1 drop EACH EYE BID [facility] Last Admin: 09/18/20 10:26 Dose: 1 drop Documented by: Venlafaxine HCl (Venlafaxine Xr 150 Mg Capsule) 150 mg PO DAILY [facility] Last Admin: 09/18/20 10:25 Dose: 150 mg Documented by: Assessment/Plan All Active Problems Pre-syncope (Resolved) COVID-19 (Acute) Diarrhea (Acute) Hypokalemia (Acute) Pain of right middle finger (Resolved) Joint swelling, finger, hand (Resolved) Cellulitis of finger (Resolved) Nonhealing surgical wound (Resolved)
--- NOTE | 2020-09-18 18:12 | NURSING ---
Report given to Aida RAMIRES on MS2. Daughter Nehal notified of patient be transferred to room 210
[2020-09-19] VITALS (7 sets, daily range): BP systolic 137–175; BP diastolic 74–89; PULSE 65–80; RESP 16–18; TEMP 36.6–36.8; O2SAT 95–100
[2020-09-19] MEDS: 0.9% Saline Lock 10 ML Syringe IV ×2 (05:11→11:05)
[2020-09-19 05:42] LABS: Hematocrit 42.5 % (37-47); Hemoglobin 13.8 g/dL (12.0-15.0); Mean Corp Hgb Conc 32.5 g/dL (32-36); Mean Corpuscular Hgb 27.8 pg (27.0-32.0); Mean Corpuscular Volume 85.5 fL (81-99); Mean Platelet Vol. 10.4 fl (6.2-12.0); Platelet Count 338 K/mm3 (150-450); RBC Distribution Width CV 13.5 % (11.6-14.6); RBC Distribution Width SD 42.4 fl (35.1-43.9); Red Blood Count 4.97 M/mm3 (4.2-5.4); White Blood Count 5.7 K/mm3 (4.4-11.0)
[2020-09-19 06:00] LABS: ALB/GLOB Ratio 0.8 RATIO (0.9-2.4); AST(SGOT) 12 U/L (15-37); Alanine Aminotransfer ALT/SGPT 22 U/L (13-56); Albumin, Serum 2.8 g/dL (3.2-5.0); Alkaline Phosphatase 61 U/L (45-117); Anion Gap 7 (5-15); BUN 14 mg/dL (7-18); BUN/Creat Ratio 21.8 RATIO (10-20); Calcium,Total 8.1 mg/dL (8.5-10.1); Chloride 106 mmol/L (98-107); Creatinine, Serum 0.64 mg/dL (0.55-1.02); EST Glomerular Filtration Rate 95 mL/min (>60); Est Glom Filt Rate - Afr Amer 115 mL/min (>60); Globulin 3.4 g/dL (2.2-4.2); Glucose 111 mg/dL (74-106); Potassium 3.6 mmol/L (3.5-5.1); Protein, Total 6.2 g/dL (6.4-8.2); Sodium Level 138 mmol/L (136-145)
--- NOTE | 2020-09-19 07:25 | DCINST_ITS ---
- Discharge Diagnoses Current Active Problems: Current Active and Chronic Problems Hypertension (Chronic) Anxiety and depression (Chronic) COVID-19 (Acute) Diarrhea (Acute) Hypokalemia (Acute) You will use the following diet at home:: No restrictions Additional Activity Instructions:: Quarantine for 10 additional days Allergies/Adverse Reactions: Allergies oxycodone HCl [From Percodan] Adverse Reaction (Verified 09/16/20 10:11) Nausea oxycodone terephthalate [From Percodan] Adverse Reaction (Verified 09/16/20 10:11) Nausea Sulfa (Sulfonamide Antibiotics) Adverse Reaction (Verified 09/16/20 10:11) Nausea/Vom/Diarrhea PEROXIDE Adverse Reaction (Uncoded 09/16/20 10:11) IN TOOTHEPASTE- CAUSED BLISTERS. Medications to take at Discharge ALPRAZolam [Xanax] 0.125 - 0.25 mg PO BID PRN PRN 10/14/15 Amlodipine [Norvasc] 5 mg PO DAILY 10/14/15 Timolol 0.5% [Timoptic] 1 drop EACH EYE BID 10/14/15 Ergocalciferol [Vitamin D] 50,000 unit PO UD 01/26/16 Acetaminophen [Tylenol Extra Strength] 500 mg PO QHS 11/03/18 Cyanocobalamin (Vitamin B-12) [Vitamin B-12] 1,000 mcg PO DAILY 11/03/18 Fluticasone/Vilanterol [Breo Ellipta 200-25 Mcg INH] 1 puff INHALATION DAILY 11/03/18 Omeprazole 40 mg PO DAILY 11/03/18 Penicillin V Potassium 500 mg PO DAILY 09/12/20 Venlafaxine HCl [Venlafaxine HCl ER] 150 mg PO DAILY 09/12/20 Dexamethasone [Decadron] 6 mg PO DAILY 7 Days #7 tablet 09/19/20 The following prescriptions were given: Dexamethasone [Decadron] 6 mg PO DAILY 7 Days #7 tablet Primary Care Physician: Kristal Gutierrez MD [Primary Care Provider] - Test Results: Test results from this visit will be discussed in further detail at your follow- up appointment, if applicable. Proposed Discharge Date: 09/19/20
--- NOTE | 2020-09-19 07:30 | DS.PCM_ITS ---
Discharge Date and Diagnosis - Problem List Patient Problems: Active and Suspected Problems COVID-19 (Acute) Diarrhea (Acute) Hypokalemia (Acute) Date of Admission: 09/16/20 Date of Discharge: 09/19/20 - Primary Discharge Diagnosis Acute Problems: Active Problems COVID-19 (Acute) Diarrhea (Acute) Hypokalemia (Acute) - Secondary Discharge Diagnosis Chronic Problems: Chronic Problems Hypertension (Chronic) Anxiety and depression (Chronic) Hospital Course and Treatment Imaging Results: Clinical Impression(s) from Imaging Studies Chest X-Ray 09/16/20 10:09 IMPRESSION: No change in right-sided scarring. CT would be more sensitive for pneumonitis. Electronically Signed: Emilio Zarate MD at 11:06 EST Tel , Service support , Labs (Last 48 Hours) 09/18/20 09/18/20 09/19/20 04:00 04:00 04:44 WBC 3.8 L 5.7 RBC 4.95 4.97 Hgb 13.9 13.8 Hct 43.9 42.5 MCV 88.7 85.5 MCH 28.1 27.8 MCHC 31.7 L 32.5 RDW Std Deviation 44.0 H 42.4 RDW Coeff of Henry 13.5 13.5 Plt Count 252 338 MPV 10.4 10.4 Sodium 141 Potassium 3.8 Chloride 109 H Carbon Dioxide 26.0 Anion Gap 6 BUN 6 L Creatinine 0.76 Estim Creat Clear Calc 50.70 Est GFR (MDRD) Af Amer 94 Est GFR (MDRD) Non-Af 78 BUN/Creatinine Ratio 7.9 L Glucose 120 H Calcium 8.0 L Total Bilirubin 0.30 AST 16 ALT 25 Alkaline Phosphatase 66 Total Protein 6.6 Albumin 2.8 L Globulin 3.8 Albumin/Globulin Ratio 0.7 L 09/19/20 04:44 WBC RBC Hgb Hct MCV MCH MCHC RDW Std Deviation RDW Coeff of Henry Plt Count MPV Sodium 138 Potassium 3.6 Chloride 106 Carbon Dioxide 25.0 Anion Gap 7 BUN 14 Creatinine 0.64 Estim Creat Clear Calc 50.70 Est GFR (MDRD) Af Amer 115 Est GFR (MDRD) Non-Af 95 BUN/Creatinine Ratio 21.8 H Glucose 111 H Calcium 8.1 L Total Bilirubin 0.40 AST 12 L ALT 22 Alkaline Phosphatase 61 Total Protein 6.2 L Albumin 2.8 L Globulin 3.4 Albumin/Globulin Ratio 0.8 L Microbiology 09/16/20 10:30 Blood Culture (Wb) - Right Hand Blood Culture - Preliminary No growth in 48 hours. 09/16/20 10:30 Blood Culture (Wb) - Anticubital Right Blood Culture - Preliminary No growth in 48 hours. Summary of Care Provided: Patient is a 80-year-old lady with recent diagnosis of COVID-19 presented with increasing generalized weakness and diarrhea 1. Acute COVID-19 infection ?Patient presented with increasing generalized weakness and diarrhea. Admitted to regular nursing floor for symptomatic management including IV fluids. Patient was also started on Decadron with consultation placed infectious disease - 09/17/2020; patient seen complaining profuse diarrhea. awaiting input from infectious disease ?09/18/2020: Diarrhea subsiding. Was started on remdesivir the day prior. -09/19/2020. Patient condition stabilized. Currently not in oxygen. Decision made for patient to be discharged home. Patient was asked to current time when she got home. She was instructed to inform her to get tested. Patient was instructed to present back to the ED if she develops significant chest pain, worsening shortness of breath and persistent fever 2. Severe dehydration ?Secondary to patient viral gastroenteritis from COVID-19 infection be rehydrated with IV fluid 3. Hypokalemia -corrected per protocol 4. Hypertension - Blood pressure controlled, home medications continued with dose adjustment as needed 5. Anxiety disorder ?Patient is on SNRI as well as Xanax discontinued 6. GERD ?Patient is on PPI 7. Vitamin B12 deficiency ?Patient is on p.o. vitamin B12 1000 mcg daily did continue 8. Obesity with BMI of 33.9 ?Weight loss advised 9. DVT prophylaxis ?Lovenox 10. Physical deconditioning - Requested for PT OT eval and hospice social worker to assist with discharge planning Patient Problems: Active and Suspected Problems COVID-19 (Acute) Diarrhea (Acute) Hypokalemia (Acute) Objective: GENERAL: cooperative HEENT: Atraumatic; EYES; Anicteric, Normal Conjunctiva NECK; supple, normal thyroid, RESPIRATORY: Diminished to auscultation CARDIOVASCULAR: Regular S1 S2, GI: soft, normoactive bowel sounds, : No Renal angle tenderness; EXTREMITIES: No edema, no clubbing, MUSCULOSKELETAL: no muscle waisting NEURO: Awake; no lateralizing signs. SKIN: No Rash PSYCH; Flat affect - Physical Exam Vitals/I&O's: Vital Signs Temp Pulse Resp BP Pulse Ox 97.9 F 71 18 175/89 H 100 09/19/20 05:10 09/19/20 05:10 09/19/20 05:10 09/19/20 05:10 09/19/20 05:10 Oxygen Flow Rate (L/min) 2 Oxygen Delivery Method Room Air Weight: 70.4 kg Body Mass Index (BMI) 32.4 Intake and Output for Last 24 Hours 09/17/20 09/18/20 09/19/20 23:59 23:59 23:59 Intake Total 2573.33 / 2573.33 1110 / 1350 240 / 240 Output Total 1225 / 1225 550 / 550 Balance 1348.33 / 1348.33 560 / 800 240 / 240 Microbiology Past 72 Hours 09/16/20 10:30 Blood Culture (Wb) - Right Hand Blood Culture - Preliminary No growth in 48 hours. 09/16/20 10:30 Blood Culture (Wb) - Anticubital Right Blood Culture - Preliminary No growth in 48 hours. Laboratory Results 09/19/20 04:44: WBC 5.7, RBC 4.97, Hgb 13.8, Hct 42.5, MCV 85.5, MCH 27.8, MCHC 32.5, RDW Std Deviation 42.4, RDW Coeff of Henry 13.5, Plt Count 338, MPV 10.4 09/19/20 04:44: Sodium 138, Potassium 3.6, Chloride 106, Carbon Dioxide 25.0, Anion Gap 7, BUN 14, Creatinine 0.64, Estim Creat Clear Calc 50.70, Est GFR (MDRD) Af Amer 115, Est GFR (MDRD) Non-Af 95, BUN/Creatinine Ratio 21.8 H, Glucose 111 H, Calcium 8.1 L, Total Bilirubin 0.40, AST 12 L, ALT 22, Alkaline Phosphatase 61, Total Protein 6.2 L, Albumin 2.8 L, Globulin 3.4, Albumin/Globulin Ratio 0.8 L Current Medications Acetaminophen (Acetaminophen 325 Mg Tablet) 650 mg PO Q6H PRN PRN PRN Reason: Pain Score 1-10/Temp > 100.7 F Al Hydroxide/Mg Hydroxide (Mag Hydrox/Al Hydrox/Simeth 30 Ml Udc) 30 ml PO Q6H PRN PRN PRN Reason: Gastric Burning Albuterol Sulfate (Albuterol 2.5 Mg/3 Ml Vial.Neb.) 2.5 mg INHALATION Q2H PRN PRN PRN Reason: SOB &/OR WHEEZING Alprazolam (Alprazolam 0.25 Mg Tablet) 0.25 mg PO BID PRN PRN PRN Reason: ANXIETY Amlodipine Besylate (Amlodipine 5 Mg Tablet) 5 mg PO DAILY [facility] Last Admin: 09/18/20 10:25 Dose: 5 mg Documented by: Cyanocobalamin (Cyanocobalamin 500 Mcg Tablet) 1,000 mcg PO DAILY [facility] Last Admin: 09/18/20 10:25 Dose: 1,000 mcg Documented by: Dexamethasone (Dexamethasone 4 Mg Tablet) 6 mg PO DAILY@0800 [facility] Stop: 09/26/20 08:01 Last Admin: 09/18/20 07:49 Dose: 6 mg Documented by: Enoxaparin Sodium (Enoxaparin 30 Mg/0.3 Ml Syringe) 30 mg SC BID [facility] Last Admin: 09/18/20 20:03 Dose: 30 mg Documented by: Ergocalciferol (Ergocalciferol 50,000 Unit Capsule) 50,000 unit PO Q14D@1000 [facility] Guaifenesin (Guaifenesin 10 Ml Udc (200mg/10ml)) 20 ml PO Q4H PRN PRN PRN Reason: COUGH Remdesivir 100 mg/ Sodium (Chloride) 250 mls @ 125 mls/hr IV DAILY [facility]; Protocol Stop: 09/21/20 11:59 Last Infusion: 09/18/20 12:24 Dose: Infused Documented by: Melatonin (Melatonin 3 Mg Tablet) 3 mg PO QHS PRN PRN PRN Reason: INSOMNIA Nitroglycerin (Nitroglycerin (Inpatient Use) 0.4 Mg Tab.Subl) 0.4 mg SUBLINGUAL Q5M PRN PRN Reason: CARDIAC/CHEST PAIN Ondansetron HCl (Ondansetron 4 Mg/2 Ml Vial) 4 mg IV Q8H PRN PRN PRN Reason: NAUSEA/VOMITING Pantoprazole Sodium (Pantoprazole Sodium 40 Mg Tablet) 40 mg PO DAILY [facility] Last Admin: 09/18/20 10:25 Dose: 40 mg Documented by: Penicillin V Potassium (Penicillin Vk 250 Mg Tablet) 500 mg PO DAILY [facility] Last Admin: 09/18/20 10:25 Dose: 500 mg Documented by: Potassium Chloride (Potassium Chloride 20 Meq Tablet) 20 meq PO BIDCM [facility] Last Admin: 09/18/20 16:55 Dose: 20 meq Documented by: Senna/Docusate Sodium (Senna/Docusate Sodium 1 Tablet) 2 tablet PO BID PRN PRN PRN Reason: Constipation Sodium Chloride (0.9% Saline Lock 10 Ml Syringe) 10 - 40 ml IV UD PRN PRN Reason: SALINE FLUSH Last Admin: 09/19/20 05:11 Dose: 10 ml Documented by: Sodium Chloride (0.9% Saline Lock 10 Ml Syringe) 10 - 40 ml IV UD PRN PRN Reason: SALINE FLUSH Throat Lozenges (Benzocaine/Menthol 1 Lozenge) 1 lozenge MUCOUS MEM Q2H PRN PRN PRN Reason: SORE THROAT Timolol Maleate (Timolol 0.5% 5ml Opth.Btl) 1 drop EACH EYE BID [facility] Last Admin: 09/18/20 20:05 Dose: 1 drop Documented by: Venlafaxine HCl (Venlafaxine Xr 150 Mg Capsule) 150 mg PO DAILY [facility] Last Admin: 09/18/20 10:25 Dose: 150 mg Documented by: Discharge Diet: No Restrictions Discharge Activity: Return to Normal Activity Additional Activity Instructions:: Quarantine for 10 additional days Home Medications: Medications to take at Discharge ALPRAZolam [Xanax] 0.125 - 0.25 mg PO BID PRN PRN 10/14/15 Amlodipine [Norvasc] 5 mg PO DAILY 10/14/15 Timolol 0.5% [Timoptic] 1 drop EACH EYE BID 10/14/15 Ergocalciferol [Vitamin D] 50,000 unit PO UD 01/26/16 Acetaminophen [Tylenol Extra Strength] 500 mg PO QHS 11/03/18 Cyanocobalamin (Vitamin B-12) [Vitamin B-12] 1,000 mcg PO DAILY 11/03/18 Fluticasone/Vilanterol [Breo Ellipta 200-25 Mcg INH] 1 puff INHALATION DAILY 11/03/18 Omeprazole 40 mg PO DAILY 11/03/18 Penicillin V Potassium 500 mg PO DAILY 09/12/20 Venlafaxine HCl [Venlafaxine HCl ER] 150 mg PO DAILY 09/12/20 Dexamethasone [Decadron] 6 mg PO DAILY 7 Days #7 tab 09/19/20 Following Prescriptions Were Given to Patient: Dexamethasone [Decadron] 6 mg PO DAILY 7 Days #7 tab Transmission Status: Received by MARTINE WILLOUGHBY-1953 [facility] Primary Care Physician: Kristal Gutierrez MD [Primary Care Provider] - Disposition: Home Minutes spent on discharge:: 35 Patient Condition:: Stable Medical Necessity - Tobacco Use Smoking Status: Never smoker Meaningful Use Info Meaningful Use Diagnoses (Choose all that apply): None applicable Inpatient E&M: [address] [facility]
[2020-09-19] MEDS: dexAMETHasone 4 MG Tablet 6 MG PO (08:02)
[2020-09-19] MEDS: Penicillin Vk 250 MG Tablet 500 MG PO (08:02)
[2020-09-19] MEDS: Cyanocobalamin 500 MCG Tablet 1000 MCG PO (08:03)
[2020-09-19] MEDS: amLODIPine 5 MG Tablet PO (08:03)
[2020-09-19] MEDS: Pantoprazole Sodium 40 MG Tablet PO (08:03)
[2020-09-19] MEDS: Enoxaparin 30 MG/0.3 ML Syringe SC (08:04)
[2020-09-19] MEDS: Venlafaxine XR 150 MG Capsule PO (08:04)
[2020-09-19] MEDS: Timolol 0.5% 5ML OPTH.BTL 1 DRP EACH EYE (08:05)
--- NOTE | 2020-09-19 11:41 | CASEMGMT ---
Social Work YOSELIN spoke with pt son Juan. Juan expressing concerns with pt returning home today because pt is showing signs of dementia and he cannot care for pt. SW reviewed with Juan that physician is stating pt is doing better and no medical reason to remain in the hospital at this time. SW confirmed with nursing and pt is moving well in room and will be able to care for self once at home. SW encouraged son to talk to pt 's pcp about concerns with cognition. Pt son stating that he will transport pt home. MARIA ELENA Downs
== END 2020-09-19 14:48 | disposition home or self-care (01) | DRG 178 ==
LOC: ED 11:30 → ICU 11:59 → MS2 09-18 20:29
PROVIDERS: Internal Medicine Infectious Disease; Admitting Provider Internal Medicine; Emergency Provider Emergency Medicine; PCP Internal Medicine; Visit Provider Internal Medicine
DX: U07.1 COVID-19 (principal); A08.39 Other viral enteritis; E87.6 Hypokalemia; E86.0 Dehydration; R09.02 Hypoxemia; I10 Essential (primary) hypertension; E53.8 Deficiency of other specified B group vitamins; K21.9 Gastro-esophageal reflux disease without esophagitis; F32.9 Major depressive disorder, single episode, unspecified; F41.9 Anxiety disorder, unspecified; E66.9 Obesity, unspecified; Z68.33 Body mass index [BMI] 33.0-33.9, adult; Z79.899 Other long term (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 therapy
CPT/HCPCS: 36415; 71045; 80048; 80053; 80076; 83605; 83735; 84100; 85025; 85027; 85379; 86900; 86901; 87040; 93005; 94640; 99285; J7030; J7050; A4216

== ENCOUNTER → 2021-07-22 08:38 | Outpatient (CLI) | payer MEDICARE, OTHER, SELFPAY ==
[2020-09-16 12:40] VITALS: BMI 32.4
--- NOTE | 2021-07-22 08:44 | BI_ITS ---
MAMMOGRAPHY - UNILATERAL SCREENING: RIGHT BREAST REASON FOR EXAM: Female, 81 years old. Routine annual screening examination (unilateral). PERTINENT HISTORY: Personal history of breast cancer. Prior left mastectomy. TECHNIQUE: Digital unilateral breast yasmin (3D mammographic acquisition) in the CC and MLO projections. 2-D mediolateral oblique (MLO) and craniocaudad (CC) views of both breasts were obtained. CAD: Full Field Digital Mammography with Computer Added Detection was performed. COMPARISON: Comparison is made with prior study 07/14/2020 and 07/09/2019. FINDINGS: Breast Composition: The breasts are almost entirely fatty. There are no dominant masses or suspicious calcifications. Stable benign-appearing right axillary lymph nodes. No other significant abnormalities are identified. There has been no significant change since the prior study. BI/SCREEN MAMM (CAD) W/YASMIN UNI R IMPRESSION: Stable unilateral screening mammogram. Yearly follow-up mammogram recommended. (A) ASSESSMENT CATEGORY: BIRADS Category 2: Benign. A letter regarding these results will be sent to the patient by the facility within 30 days. Approximately 10% of breast cancers are not detected by mammography. A normal mammogram should not delay biopsy of a clinically suspicious abnormality. [id number] Electronically Signed: Cj Sandy MD at 9:51 EDT , Service support ,
== END ==
PROVIDERS: PCP Internal Medicine; Referring Provider Internal Medicine; Visit Provider Internal Medicine
DX: Z12.31 Encounter for screening mammogram for malignant neoplasm of breast (principal); Z85.3 Personal history of malignant neoplasm of breast; Z90.12 Acquired absence of left breast and nipple
CPT/HCPCS: 77063; 77067

== ENCOUNTER 2022-02-15 10:47 | Outpatient (CLI) | payer MEDICARE, OTHER, SELFPAY ==
[2022-02-15 11:13] LABS: Amylase 39 U/L (25-115); Lipase 123 U/L (73-393)
== END 2022-02-15 23:59 | disposition home or self-care (01) ==
LOC: LABSPEC 10:49
PROVIDERS: PCP Internal Medicine; Visit Provider Nurse Practitioner
DX: R10.9 Unspecified abdominal pain (principal); R14.0 Abdominal distension (gaseous)
CPT/HCPCS: 82150; 83690

== ENCOUNTER → 2022-03-04 | Outpatient (CLI) | payer MEDICARE, OTHER, SELFPAY ==
[2022-03-04 10:05] LABS: Absolute Lymphocyte Count 1.71 X10^3/uL (0.83-4.51); Absolute Neutrophil Count 5.5 X10^3/uL (2.0-7.7); Basophil# 0.08 X10^3/uL; Eosinophils% 3.7 % (0-5); Hematocrit 48.7 % (37-47); Hemoglobin 16.1 g/dL (12.0-15.0); Lymphocyte # 1.71 X10^3/ul (0.83-4.51); Mean Corp Hgb Conc 33.1 g/dL (32-36); Mean Corpuscular Hgb 28.4 pg (27.0-32.0); Mean Corpuscular Volume 85.9 fL (81-99); Mean Platelet Vol. 9.4 fl (6.2-12.0); Monocyte% 6.1 % (0-10); NRBC Flagged by Analyzer 0 % (0-5); Neutrophil # 5.54 X10^3/uL (2.7-7.7); Platelet Count 541 K/mm3 (150-450); RBC Distribution Width CV 13.2 % (11.6-14.6); RBC Distribution Width SD 41.1 fl (35.1-43.9); Red Blood Count 5.67 M/mm3 (4.2-5.4); White Blood Count 8.2 K/mm3 (4.4-11.0)
[2022-03-04 10:45] LABS: Vitamin D,25 Hydroxy 83.2 ng/mL
[2022-03-04 10:46] LABS: ALB/GLOB Ratio 0.9 RATIO (0.9-2.4); AST(SGOT) 11 U/L (15-37); Alanine Aminotransfer ALT/SGPT 21 U/L (13-56); Albumin, Serum 3.6 g/dL (3.2-5.0); Alkaline Phosphatase 84 U/L (45-117); Anion Gap 6 (5-15); BUN 11 mg/dL (7-18); BUN/Creat Ratio 11.1 RATIO (10-20); Chloride 109 mmol/L (98-107); Cholesterol 183 mg/dL (200); Creatinine, Serum 0.99 mg/dL (0.55-1.02); EST Glomerular Filtration Rate 57 mL/min (>60); Est Glom Filt Rate - Afr Amer 69 mL/min (>60); Globulin 3.8 g/dL (2.2-4.2); Glucose 113 mg/dL (74-106); High Density Lipoprotein 46 mg/dL; Potassium 3.5 mmol/L (3.5-5.1); Protein, Total 7.4 g/dL (6.4-8.2); Sodium Level 141 mmol/L (136-145); Triglycerides 279 mg/dL; Very Low Density Lipoprotein 56 mg/dL (5-40)
== END | disposition home or self-care (01) ==
LOC: LAB 09:14
PROVIDERS: PCP Internal Medicine; Visit Provider Internal Medicine
DX: E55.9 Vitamin D deficiency, unspecified (principal); E78.2 Mixed hyperlipidemia; I10 Essential (primary) hypertension; Z12.11 Encounter for screening for malignant neoplasm of colon
CPT/HCPCS: 36415; 80053; 80061; 82306; 85025

== ENCOUNTER → 2022-03-05 | Outpatient (CLI) | payer MEDICARE, OTHER, SELFPAY | END | disposition home or self-care (01) | LOC: LABSPEC 11:34 | PROVIDERS: PCP Internal Medicine; Referring Provider Internal Medicine; Visit Provider Internal Medicine | DX: Z12.11 Encounter for screening for malignant neoplasm of colon (principal) | CPT/HCPCS: 82274 ==

== ENCOUNTER 2022-08-31 10:01 | Emergency (ER) | payer MEDICARE, OTHER, SELFPAY ==
[2022-08-31 10:03] VITALS: BP 173/85; PULSE 97; RESP 18; TEMP 36; O2SAT 95; BMI 34.6
--- NOTE | 2022-08-31 10:22 | EKG12_ITS ---
Test Reason : Blood Pressure : / mmHG Vent. Rate : 100 BPM Atrial Rate : 100 BPM P-R Int : 176 ms QRS Dur : 088 ms QT Int : 348 ms P-R-T Axes : 048 -43 081 degrees QTc Int : 448 ms Normal sinus rhythm Left axis deviation Moderate voltage criteria for LVH, may be normal variant ( R in aVL , Jacob product ) Poor R wave progression Abnormal ECG Confirmed by VARUN CUNNINGHAM, LOGAN ([id number]), market editor GELY PETERSON ([id number]) on 09/02/2022 12:33:08 PM Referred By: Confirmed By:LOGAN BOND MD
--- NOTE | 2022-08-31 10:25 | EDS_ITS ---
HPI History of Present Illness Chief Complaint: Nausea/Vomiting/Diarrhea Informant: patient Onset/Context/Timing Onset: Today Current Severity: Moderate Maximum Severity: Moderate Narrative Narrative: Patient presents with nausea, vomiting, and diarrhea that started this morning. She states she ate dinner last evening and felt fine. No fever. [facility] Medical History (Updated 08/31/22 @ 15:[address] Amena Shine MD) Anxiety and depression Hypertension Home Medications alprazolam 0.25 mg tablet 0.125 - 0.25 mg PO BID PRN PRN Anxiety 10/14/15 [History Last Taken 08/26/22] amlodipine 5 mg tablet 5 mg PO DAILY blood prssure 10/14/15 [History Last Taken 08/31/22] timolol maleate 0.5 % eye drops 1 drp BID glaucoma 10/14/15 [History Last Taken 08/31/22] ergocalciferol (vitamin D2) 1,250 mcg (50,000 unit) capsule (Vitamin D2) 50,000 unit PO UD supplement 01/26/16 [History Last Taken 08/22/22] fluticasone furoate 200 mcg-vilanterol 25 mcg/dose inhalation powder (Breo Ellipta) 1 puff inhalation DAILY lungs 11/03/18 [History Last Taken 08/31/22] omeprazole 40 mg capsule,delayed release 40 mg PO DAILY gerd 11/03/18 [History Last Taken 08/31/22] penicillin V potassium 500 mg tablet 500 mg PO DAILY prophylaxis 09/12/20 [Hist ory Last Taken 08/31/22] venlafaxine 150 mg capsule,extended release 24 hr 150 mg PO DAILY depression 09/12/20 [History Last Taken 08/31/22] albuterol sulfate 90 mcg/actuation aerosol inhaler 2 inh inhalation Q4H PRN Wheezing 08/31/22 [History Last Taken 08/30/22] fexofenadine 180 mg tablet 180 mg PO DAILY allergies 08/31/22 [History Last Taken 08/31/22] fluticasone propionate 50 mcg/actuation nasal spray,suspension 2 spray intranasal DAILY allergies 08/31/22 [History Last Taken 2 Days Ago ~08/29/22] ibuprofen 200 mg tablet (Advil) 200 mg PO QHS PAIN 08/31/22 [History Last Taken 08/30/22] ondansetron 4 mg disintegrating tablet 4 mg PO Q8H PRN nausea and vomiting #10 tabs 08/31/22 [Rx Last Taken Unknown] Allergy/AdvReac Type Severity Reaction Status Date / Time oxycodone HCl [From Percodan] AdvReac Nausea Verified 09/16/20 10:11 oxycodone terephthalate AdvReac Nausea Verified 09/16/20 10:11 [From Percodan] Sulfa (Sulfonamide AdvReac Nausea/Vom/ Verified 09/16/20 10:11 Antibiotics) Diarrhea PEROXIDE AdvReac IN Uncoded 09/16/20 10:11 TOOTHEPASTE- CAUSED BLISTERS. Surgical History H/O: hysterectomy Hx of appendectomy Hx of cholecystectomy Social History Smoking Status: Never smoker ROS ROS ED Constitutional Constitutional ED: Denies chills or fever(s) Eyes Eyes: Denies change in vision or discharge from eye(s) ENT ENT ED: Denies discharge from eye(s), rhinorrhea or sore throat Cardiovascular Cardiovascular: Denies chest pain or palpitations Respiratory/Chest Respiratory/Chest: Denies cough or dyspnea Gastrointestinal Gastrointestinal: Reports abdominal pain, diarrhea, nausea and vomiting Genitourinary Genitourinary ED: Denies difficulty urinating or dysuria Musculoskeletal Musculoskeletal: Denies back pain or extremity pain Integumentary Denies Abrasions or rash Neurologic Neurologic: Denies headache(s) or weakness Allergic/Immunologic Allergic/Immunologic ED: Denies lip swelling or urticaria EXAM Physical Exam Const Vital Signs: 08/31/22 10:03 08/31/22 12:10 08/31/22 13:38 Temperature 96.8 F L 100.3 F H Temperature Source Temporal Oral Pulse Rate 97 99 99 Respiratory Rate 18 Blood Pressure 173/85 H 163/96 H Blood Pressure Mean 114 118 Pulse Ox 95 93 90 Oxygen Delivery Method Room Air Room Air Room Air 08/31/22 14:57 Temperature 99.3 F H Temperature Source Temporal Pulse Rate 100 Respiratory Rate 24 H Blood Pressure 158/83 H Blood Pressure Mean 108 Pulse Ox 93 Oxygen Delivery Method Room Air Positive well nourished and well developed General Appearance ED: well developed HEENT Reports normocephalic and head/scalp atraumatic Eyes PERRL and EOMs intact bilaterally Neck supple Chest Wall inspection of chest normal and palpation of chest normal Resp normal respiratory effort and clear to auscultation bilaterally Cardio regular rate and regular rhythm GI GI Narrative: Abdomen is soft with mild epigastric tenderness palpation. Hypoactive bowel sounds. Palpation: soft Extremity normal to inspection Neuro oriented x3 and no sensory deficits noted Sensorium / Orientation: alert Motor Exam: strength 5/5 throughout Psych mental status grossly normal Skin no rashes or lesions noted MDM MDM MDM Narrative Medical decision making narrative: Lab work and EKG obtained. QTC is normal so patient given IV Zofran and fluids. Lab Data Attestation: I reviewed the patient's lab results. Labs: Laboratory Results - last 24 hr 08/31/22 08/31/22 10:57 10:57 WBC 17.4 H RBC 5.22 Hgb 15.6 H Hct 45.9 MCV 87.9 MCH 29.9 MCHC 34.0 RDW Std Deviation 43.4 RDW Coeff of Henry 13.4 Plt Count 335 MPV 9.5 Immature Gran % (Auto) 0.300 Neut % (Auto) 86.8 H Lymph % (Auto) 6.4 L Leake % (Auto) 5.7 Eos % (Auto) 0.3 Baso % (Auto) 0.5 Absolute Neuts (auto) 15.1 H Absolute Lymphs (auto) 1.11 Nucleated RBC % 0 Sodium 138 Potassium 3.9 Chloride 105 Carbon Dioxide 24.0 Anion Gap 9 BUN 16 Creatinine 1.02 Estim Creat Clear Calc 51.35 Est GFR (MDRD) Af Amer 67 Est GFR (MDRD) Non-Af 55 L BUN/Creatinine Ratio 15.7 Glucose 143 H Calcium 8.7 Total Bilirubin 0.50 Direct Bilirubin 0.19 AST 16 ALT 25 Alkaline Phosphatase 92 Total Protein 7.2 Albumin 3.6 Globulin 3.6 Lipase 136 Radiography Diagnostic Testing: Clinical Impression(s) from Imaging Studies Abdomen/Pelvis CT 08/31/22 12:06 IMPRESSION: Diffuse fatty infiltration of the liver. Status post hysterectomy, appendectomy and cholecystectomy. Stable bilateral parapelvic cysts. 6.7 mm x 6 mm noncalcified nodular density in the posterolateral aspect of the right middle lobe. 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 Electronically Signed: jC Sandy MD at 12:47 EDT , EKG Initial EKG: Attestation: I personally reviewed and interpreted this EKG as follows: Interpretation: Sinus Rhythm (Sinus at 100. QTc is 448. No acute ischemia's.) Treatment and Re-Evaluation Narrative: CBC reveals a white count of 17.4 and hemoglobin is concentrated at 15.6. Neutrophils are 86%. Chemistry studies and LFTs are normal. Lipase is normal. Due to elevated white count CT scan flank obtained. This reveals no acute abnormalities. On repeat evaluation patient reported still feeling somewhat nauseated. She was given a small dose of Reglan. At this time patient states she does feel improved and wishes to go home. I believe she has a viral gastroenteritis. Abdomen is soft and benign. She be given prescription for Zofran with return instructions if she is not improving. Discharge Plan Triage Chief Complaint: Nausea/Vomiting/Diarrhea ED Provider: Amena Shine Dx/Rx/DC Orders Clinical Impression: Viral gastroenteritis Instructions: ED Gastroenteritis, Viral (Adult) Prescriptions: New ondansetron 4 mg tablet,disintegrating 4 mg PO Q8H PRN (Reason: nausea and vomiting) Qty: 10 0RF No Action amlodipine 5 MG tablet 5 mg PO DAILY timolol maleate 1 DROP drops 1 drp Each Eye BID alprazolam 0.25 MG tablet 0.125 - 0.25 mg PO BID PRN PRN (Reason: Anxiety) ergocalciferol (vitamin D2) [Vitamin D2] 50,000 UNIT capsule 50,000 unit PO UD Label Comments: TAKES EVERY OTHER WEEK ON TUESDAY Rx Instructions: every other week ON TUESDAY omeprazole 40 MG capsule,delayed release(DR/EC) 40 mg PO DAILY Label Comments: TAKE ONE CAPSULE BY MOUTH ONCE DAILY fluticasone furoate-vilanterol [Breo Ellipta] 1 EACH blister with device 1 puff inhalation DAILY Label Comments: inhale 1 puff once daily, use with good oral care venlafaxine 150 MG capsule,extended release 24hr 150 mg PO DAILY penicillin V potassium 500 MG tablet 500 mg PO DAILY Label Comments: take 1 tablet by mouth once daily fexofenadine 180 mg tablet 180 mg PO DAILY Label Comments: take 1 tablet by mouth once daily ibuprofen [Advil] 200 mg Tablet 200 mg PO QHS albuterol sulfate 90 mcg/actuation HFA aerosol inhaler 2 inh INHALATION Q4H PRN (Reason: Wheezing) Label Comments: inhale 2 puffs by mouth every 4 hours if needed for wheezing or shortness of breath fluticasone propionate 50 mcg/actuation spray,suspension 2 spray INTRANASAL DAILY Label Comments: instill 2 sprays into each nostril once daily Primary Care Provider: Kristal Gutierrez Referrals: Kristal Gutierrez MD [Primary Care Provider] - 1-2 Weeks Disposition Disposition: Home, Self Care
[2022-08-31] MEDS: 0.9% Normal Saline 1,000 ML 100 ML IV (10:55)
[2022-08-31] MEDS: Ondansetron 4 MG/2 ML Vial IV (10:56)
[2022-08-31 11:01] LABS: Absolute Lymphocyte Count 1.11 X10^3/uL (0.83-4.51); Absolute Neutrophil Count 15.1 X10^3/uL (2.0-7.7); Basophil# 0.09 X10^3/uL; Basophil% 0.5 % (0-1); Eosinophil# 0.06 X10^3/uL; Eosinophils% 0.3 % (0-5); Hematocrit 45.9 % (37-47); Hemoglobin 15.6 g/dL (12.0-15.0); Lymphocyte # 1.11 X10^3/ul (0.83-4.51); Lymphocyte % 6.4 % (19-41); Mean Corpuscular Hgb 29.9 pg (27.0-32.0); Mean Corpuscular Volume 87.9 fL (81-99); Mean Platelet Vol. 9.5 fl (6.2-12.0); Monocyte# 0.99 X10^3/uL; Monocyte% 5.7 % (0-10); NRBC Flagged by Analyzer 0 % (0-5); Neutrophil # 15.09 X10^3/uL (2.7-7.7); Neutrophil % 86.8 % (47-70); Platelet Count 335 K/mm3 (150-450); RBC Distribution Width CV 13.4 % (11.6-14.6); RBC Distribution Width SD 43.4 fl (35.1-43.9); Red Blood Count 5.22 M/mm3 (4.2-5.4); White Blood Count 17.4 K/mm3 (4.4-11.0)
[2022-08-31 11:17] LABS: AST(SGOT) 16 U/L (15-37); Alanine Aminotransfer ALT/SGPT 25 U/L (13-56); Albumin, Serum 3.6 g/dL (3.2-5.0); Alkaline Phosphatase 92 U/L (45-117); Anion Gap 9 (5-15); BUN 16 mg/dL (7-18); BUN/Creat Ratio 15.7 RATIO (10-20); Bilirubin, Direct 0.19 mg/dL (0.00-0.30); Calcium,Total 8.7 mg/dL (8.5-10.1); Chloride 105 mmol/L (98-107); Creatinine, Serum 1.02 mg/dL (0.55-1.02); EST Glomerular Filtration Rate 55 mL/min (>60); Est Glom Filt Rate - Afr Amer 67 mL/min (>60); Estimated Creatinine Clearance 51.35 ml/min; Globulin 3.6 g/dL (2.2-4.2); Glucose 143 mg/dL (74-106); Lipase 136 U/L (73-393); Potassium 3.9 mmol/L (3.5-5.1); Protein, Total 7.2 g/dL (6.4-8.2); Sodium Level 138 mmol/L (136-145)
--- NOTE | 2022-08-31 12:06 | CT_ITS ---
STUDY: CT ABDOMEN AND PELVIS WITHOUT CONTRAST REASON FOR EXAM: Female, 82 years old. Abd pain, vomiting, leukocytosis. Prior left mastectomy. RADIATION DOSAGE (If Supplied By Facility): CTDIvol = ( 14.83 ) mGy, DLP = ( 648.45 ) mGycm TECHNIQUE: Transaxial images were obtained from the dome of the diaphragm to the symphysis pubis without oral contrast, and without intravenous contrast. Sagittal and coronal images were reconstructed. Individualized dose optimization techniques were used for this CT. COMPARISON: Comparison is made with prior examination dated 10/26/2012. FINDINGS: There is a 6.7 mm x 6 mm noncalcified nodular density in the posterior lateral aspect of the right middle lobe as seen on axial image #1. There is also evidence of a prominent vascular malformation in the right lower lobe. Coronary artery calcification. There is decreased attenuation of the liver consistent with steatosis. There are surgical clips in the gallbladder fossa consistent with a prior cholecystectomy. Normal spleen. Normal pancreas. Normal bilateral adrenal glands. Stable bilateral parapelvic cysts. There is a small hiatal hernia. Normal small intestine. There are multiple colonic diverticula consistent with diverticulosis. The patient is status post appendectomy. There is scattered atherosclerotic calcification of the abdominal aorta, without a demonstrated aneurysm. Normal inferior vena cava. Normal retroperitoneum. Cystocele. There is absence of the uterus consistent with a prior hysterectomy. Normal abdominal wall. There are diffuse degenerative changes of the visualized lumbar spine. Stable minimal anterolisthesis of L4 on L5. CT/Abdomen/Pelvis without Cont IMPRESSION: Diffuse fatty infiltration of the liver. Status post hysterectomy, appendectomy and cholecystectomy. Stable bilateral parapelvic cysts. 6.7 mm x 6 mm noncalcified nodular density in the posterolateral aspect of the right middle lobe. 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 Electronically Signed: Cj Sandy MD at 12:47 EDT ,
[2022-08-31 12:10] VITALS: PULSE 99; RESP 18; O2SAT 93
[2022-08-31 13:38] VITALS: BP 163/96; PULSE 99; RESP 18; TEMP 37.9; O2SAT 90
[2022-08-31] MEDS: Metoclopramide 10 MG/2 ML Vial 5 MG IV (14:12)
[2022-08-31 14:57] VITALS: BP 158/83; PULSE 100; RESP 24; TEMP 37.4; O2SAT 93
== END 2022-08-31 15:45 | disposition home or self-care (01) ==
PROVIDERS: Emergency Provider Emergency Medicine; PCP Internal Medicine; Visit Provider Emergency Medicine
DX: A08.4 Viral intestinal infection, unspecified (principal); I10 Essential (primary) hypertension; F32.A Depression, unspecified; F41.9 Anxiety disorder, unspecified; Z79.899 Other long term (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 therapy
CPT/HCPCS: 74176; 80048; 80076; 83690; 85025; 93005; 96361; 96374; 96375; 99284; J7030; J2405

== ENCOUNTER → 2022-10-16 | Outpatient (CLI) | payer MEDICARE, OTHER, SELFPAY | END | disposition home or self-care (01) | LOC: LABSPEC 06:52 | PROVIDERS: PCP Internal Medicine; Visit Provider Internal Medicine Pulmonary Disease | DX: J47.9 Bronchiectasis, uncomplicated (principal) | CPT/HCPCS: 87070; 87205 ==

== ENCOUNTER 2023-11-05 00:02 | Inpatient (IN) | payer MEDICARE, OTHER, SELFPAY ==
[2023-11-05] VITALS (26 sets, daily range): BP systolic 107–179; BP diastolic 51–99; PULSE 59–84; RESP 16–21; TEMP 36.4–36.8; O2SAT 89–100; BMI 32.1; BMI 32.5
--- NOTE | 2023-11-05 00:42 | ED.VIS.CHEST ---
HPI History of Present Illness Chief Complaint: Chest Pain Informant: patient Onset/Context/Timing Onset: Today and Hours (5) Activity at onset: sudden Timing: Continuous Quality: Positive for Pressure Location: Substernal, Right Parasternal, Left Parasternal, Right Chest and Left Chest Worsened By: Nothing Relieved By: Nothing Associated Symptoms: Positive for Diaphoresis, Dyspnea, Cough and Acid Reflux; Negative for Nausea, Vomiting, Fever, Lightheadedness or Palpitations Narrative Narrative: Patient presents with chest pain that began approximately 5 hours prior to arrival. Patient states it came on gradually. Patient states it has been constant. Patient describes it as a pressure sensation. Patient states it is diffuse across her chest. Patient states nothing makes it better nothing makes it worse. Patient admits to cough and some shortness of breath. Patient admits to some slight diaphoresis. Patient also admits to some reflux symptoms. Patient denies any fevers or chills. Patient denies any nausea or vomiting. CVD Risk Factors: Positive for Family History 1' </=55; Negative for Hypertension, Diabetes, Hypercholesterolemia or Smoking PE Risk Factors: Positive for Cancer; Negative for Recent Travel/Surgery, Recent Immobilization, Prior DVT or PE or OCP + Smoking + >/=35 PFSH PFSH Medical History Anxiety and depression Breast cancer Hypertension Home Medications alprazolam 0.25 mg tablet 0.125 - 0.25 mg PO BID PRN PRN Anxiety 10/14/15 [History Last Taken 08/26/22] amlodipine 5 mg tablet 5 mg PO DAILY blood prssure 10/14/15 [History Last Taken 08/31/22] timolol maleate 0.5 % eye drops 1 drp BID glaucoma 10/14/15 [History Last Taken 08/31/22] ergocalciferol (vitamin D2) 1,250 mcg (50,000 unit) capsule (Vitamin D2) 50,000 unit PO UD supplement 01/26/16 [History Last Taken 08/22/22] fluticasone furoate 200 mcg-vilanterol 25 mcg/dose inhalation powder (Breo Ellipta) 1 puff inhalation DAILY lungs 11/03/18 [History Last Taken 08/31/22] omeprazole 40 mg capsule,delayed release 40 mg PO DAILY gerd 11/03/18 [History Last Taken 08/31/22] penicillin V potassium 500 mg tablet 500 mg PO DAILY prophylaxis 09/12/20 [History Last Taken 08/31/22] venlafaxine 150 mg capsule,extended release 24 hr 150 mg PO DAILY depression 09/12/20 [History Last Taken 08/31/22] albuterol sulfate 90 mcg/actuation aerosol inhaler 2 inh inhalation Q4H PRN Wheezing 08/31/22 [History Last Taken 08/30/22] fexofenadine 180 mg tablet 180 mg PO DAILY allergies 08/31/22 [History Last Taken 08/31/22] fluticasone propionate 50 mcg/actuation nasal spray,suspension 2 spray intranasal DAILY allergies 08/31/22 [History Last Taken 2 Days Ago ~08/29/22] aspirin 81 mg chewable tablet 81 mg PO DAILYCM #0 tabs 11/06/23 [Rx Last Taken Unknown] atorvastatin 40 mg tablet 40 mg PO QHS #30 tabs 11/06/23 [Rx Last Taken Unknown] clopidogrel 75 mg tablet 75 mg PO DAILY #30 tabs 11/06/23 [Rx Last Taken Unknown] metoprolol tartrate 25 mg tablet 25 mg PO BID #60 tabs 11/06/23 [Rx Last Taken Unknown] nitroglycerin 0.4 mg sublingual tablet 0.4 mg sublingual Q5M PRN Chest pain #10 tabs 11/06/23 [Rx Last Taken Unknown] Allergy/AdvReac Type Severity Reaction Status Date / Time hydrogen peroxide AdvReac Other Verified 11/05/23 04:23 oxycodone HCl [From Percodan] AdvReac Nausea Verified 11/05/23 04:23 oxycodone terephthalate AdvReac Nausea Verified 11/05/23 04:23 [From Percodan] Sulfa (Sulfonamide AdvReac Nausea/Vom/ Verified 11/05/23 04:23 Antibiotics) Diarrhea Surgical History H/O: hysterectomy Hx of appendectomy Hx of cholecystectomy Hx of mastectomy Hx of tonsillectomy Social History Smoking Status: Never smoker ROS ROS ED Constitutional Constitutional ED: Denies chills or fever(s) Eyes Eyes: Denies blurry vision or change in vision ENT ENT ED: Denies rhinorrhea or sore throat Cardiovascular Cardiovascular: Reports chest pain; Denies palpitations Respiratory/Chest Respiratory/Chest: Reports cough and dyspnea Gastrointestinal Gastrointestinal: Denies nausea or vomiting Genitourinary Genitourinary ED: Reports urinary frequency; Denies dysuria or hematuria Musculoskeletal Musculoskeletal: Reports back pain; Denies neck pain Integumentary Denies abscess or rash Neurologic Neurologic: Reports headache(s); Denies weakness Allergic/Immunologic Allergic/Immunologic ED: Denies mouth swelling or urticaria EXAM Physical Exam Const Vital Signs: 11/05/23 00:06 11/05/23 00:10 11/05/23 02:09 Temperature 97.9 F 97.9 F Temperature Source Oral Oral Pulse Rate 78 75 Respiratory Rate 18 20 H Blood Pressure 151/91 H 151/91 H Blood Pressure Mean 111 111 Pulse Ox 96 96 97 Oxygen Delivery Method Room Air Room Air Room Air 11/05/23 02:09 11/05/23 03:16 Temperature Temperature Source Pulse Rate 73 73 Respiratory Rate 21 H 18 Blood Pressure 179/87 H 163/85 H Blood Pressure Mean 117 111 Pulse Ox 97 96 Oxygen Delivery Method Room Air Room Air Positive well nourished and well developed General Appearance ED: well developed and NAD HEENT Reports moist mucous membranes Neck supple and no JVD Resp normal respiratory effort and clear to auscultation bilaterally Cardio regular rate and regular rhythm GI soft to palpation, non-tender and non-distended Extremity normal to inspection General Extremety ED: Negative for edema or tenderness General Extremity: Negative for edema Neuro oriented x3, CN's II-XII intact bilaterally and no sensory deficits noted Sensorium / Orientation: awake and alert Motor Exam: strength 5/5 throughout Psych mental status grossly normal Heart Score History: Moderately Suspicious ECG: Nonspecific Repolarization Age: >/= 65 years Risk Factors: 1 or 2 Risk Factors Troponin: >1 - <3 Normal Limit Score: 6 MDM MDM MDM Narrative Medical decision making narrative: Differential diagnosis includes cardiac dysrhythmia, cardiac ischemia, gastroesophageal reflux disease, pneumonia, pneumothorax, gastric ulcer, musculoskeletal pain, and anxiety. EKG will be obtained to assess for cardiac dysrhythmia and cardiac ischemia. Chest x-ray will be obtained to assess for pneumonia pneumothorax. CBC will be obtained to assess for leukocytosis and anemia. Basic metabolic profile will be obtained to assess for electrolyte abnormality and renal function. High-sensitivity troponin will be obtained to assess for cardiac ischemia. 2-hour repeat high-sensitivity troponin will be obtained to assess for ongoing cardiac ischemia. D-dimer will be obtained to assess for pulmonary embolism. Lab Data Attestation: I reviewed the patient's lab results. Lab results narrative: CBC was reviewed and was essentially within normal limits. D-dimer was reviewed and was normal at 0.34. Basic metabolic profile was reviewed and was essentially within normal limits. High-sensitivity troponin was reviewed and was slightly elevated at 147. Labs: Laboratory Results - last 24 hr 11/04/23 23:44 WBC 7.0 RBC 5.58 H Hgb 16.1 H Hct 49.3 H MCV 88.4 MCH 28.9 MCHC 32.7 RDW Std Deviation 43.2 RDW Coeff of Henry 13.3 Plt Count 355 MPV 9.8 Immature Gran % (Auto) 0.300 Neut % (Auto) 57.1 Lymph % (Auto) 29.5 Mobile % (Auto) 8.7 Eos % (Auto) 3.4 Baso % (Auto) 1.0 Absolute Neuts (auto) 4.0 Absolute Lymphs (auto) 2.07 Nucleated RBC % 0 D-Dimer Quant (PE/DVT) 0.34 Sodium 139 Potassium 4.0 Chloride 105 Carbon Dioxide 28.0 Anion Gap 6 BUN 15 Creatinine 0.98 Estim Creat Clear Calc 48.70 Est GFR (MDRD) Af Amer 70 Est GFR (MDRD) Non-Af 58 L BUN/Creatinine Ratio 15.3 Glucose 107 H Calcium 9.6 Troponin I High Sens 147 H* Radiography Diagnostic Testing: Clinical Impression(s) from Imaging Studies Chest X-Ray 11/05/23 01:10 IMPRESSION: 1. Patchy opacities in the right upper lobe likely represent bronchiectatic changes with mucoid impaction was seen on prior CT scan. There may be concrete pneumonia. This appears increased compared with the prior chest x-ray 09/16/2020. 2. Persistent opacities right lung base unchanged. Electronically Signed: Juan Cerrato MD at 1:43 EST , Chest CT 11/05/23 03:07 IMPRESSION: Multiple areas of bronchial filling defects with adjacent nodular opacity. This appearance is present on the 2019 study, though has progressed, suggesting chronic infectious/inflammatory process. Electronically Signed: Saad Marvin MD at 4:13 EST , Portable 1 view chest x-ray was obtained. On my independent interpretation, lung cisse showed patchy opacities in the right upper lobe likely consistent with bronchiectatic changes that were seen on prior CT scan. This appears to be increased compared to prior chest x-ray from 09/16/2020. There is normal cardiac silhouette. Bony thorax is normal. There is no acute process noted. Radiologist also interpreted the x-ray and agrees. EKG Initial EKG: Attestation: I personally reviewed and interpreted this EKG as follows: Interpretation: Sinus Rhythm (77) and Inverted T-Waves (There are asymmetric T wave inversions in leads V1 and V2) Comments: EKG was obtained. On my independent interpretation, shows normal sinus rhythm with a rate of 77. WI interval was normal at 174 ms. QRS interval was normal at 98 ms. QTc interval was normal at 436 ms. There is left axis deviation of -42. There are nonspecific ST-T wave changes in leads I and aVL. There is asymmetric T wave inversions in V1 and V2. Prior EKG tracings: available for review Prior: Changed (Compared to previous EKG dated 08/31/2022, the T wave inversions in V1 and V2 are more pronounced.) Treatment and Re-Evaluation :: Patient was given aspirin. Patient was advised of her findings. Patient has a HEART score of 6. Patient was advised of the need for admission to the hospital for further evaluation. Patient is agreeable with this. Case will be discussed with the hospitalist for admission. Critical Care Time Critical Care Time: Yes Critical care time (excluding procedures): 30-74 minutes (33), Including time spent:, Discussing w/Patient &/or Family/Leasing Machine Tender, Discussing w/Consultants, Arranging Admission or Transfer and Performing Direct Patient Care at Bedside Discharge Plan Dx/Rx/DC Orders Clinical Impression: Elevated troponin, Chest pain Disposition Disposition: Acute Care Hospital [facility] Discharge Date/Time: 11/05/23 04:20
--- NOTE | 2023-11-05 01:01 | EKG12_ITS ---
Test Reason : CP Blood Pressure : / mmHG Vent. Rate : 077 BPM Atrial Rate : 077 BPM P-R Int : 174 ms QRS Dur : 098 ms QT Int : 386 ms P-R-T Axes : 035 -42 065 degrees QTc Int : 436 ms Normal sinus rhythm Left axis deviation Left ventricular hypertrophy with repolarization abnormality ( R in aVL , Jacob product , Romhilt-E stes ) Abnormal ECG Confirmed by TRACI CUNNINGHAM, LOUIS ([id number]), research editor CHARLY GONZALEZ ([id number]) on 11/15/2023 8:47:24 AM Referred By: MICHELE Confirmed By:LOUIS AVILES MD
--- NOTE | 2023-11-05 01:10 | RAD_ITS ---
EXAM: XR CHEST, 1 VIEW CLINICAL INDICATION: chest pain TECHNIQUE: Frontal view of the chest. COMPARISON: Chest x-ray 09/16/[address] scan of the chest 11/30/2018. FINDINGS: LUNGS AND PLEURAL SPACES: Patchy opacities in the right upper lobe likely represent bronchiectatic changes with mucoid impaction was seen on prior CT scan. There may be concrete pneumonia. This appears increased compared with the prior chest x-ray 09/16/2020. Persistent opacities right lung base unchanged. No pneumothorax. No effusion. HEART: Unremarkable. Cardiac silhouette not enlarged. MEDIASTINUM: Central airways and mediastinal contour are unremarkable. BONES/JOINTS: Unremarkable. No acute fracture. SOFT TISSUES: Left mastectomy. Surgical clips left axilla. RAD/Chest 1 View (Portable) IMPRESSION: 1. Patchy opacities in the right upper lobe likely represent bronchiectatic changes with mucoid impaction was seen on prior CT scan. There may be concrete pneumonia. This appears increased compared with the prior chest x-ray 09/16/2020. 2. Persistent opacities right lung base unchanged. Electronically Signed: Juan Cerrato MD at 1:43 EST ,
[2023-11-05 01:24] LABS: Absolute Lymphocyte Count 2.07 X10^3/uL (0.83-4.51); Basophil# 0.07 X10^3/uL; Eosinophil# 0.24 X10^3/uL; Eosinophils% 3.4 % (0-5); Hematocrit 49.3 % (37-47); Hemoglobin 16.1 g/dL (12.0-15.0); Lymphocyte # 2.07 X10^3/ul (0.83-4.51); Lymphocyte % 29.5 % (19-41); Mean Corp Hgb Conc 32.7 g/dL (32-36); Mean Corpuscular Hgb 28.9 pg (27.0-32.0); Mean Corpuscular Volume 88.4 fL (81-99); Mean Platelet Vol. 9.8 fl (6.2-12.0); Monocyte# 0.61 X10^3/uL; Monocyte% 8.7 % (0-10); NRBC Flagged by Analyzer 0 % (0-5); Neutrophil # 4.01 X10^3/uL (2.7-7.7); Neutrophil % 57.1 % (47-70); Platelet Count 355 K/mm3 (150-450); RBC Distribution Width CV 13.3 % (11.6-14.6); RBC Distribution Width SD 43.2 fl (35.1-43.9); Red Blood Count 5.58 M/mm3 (4.2-5.4)
[2023-11-05 01:39] LABS: D-Dimer Quantitative (DVT/PE) 0.34 FEU/ug/m (0.27-0.49)
[2023-11-05 01:55] LABS: Anion Gap 6 (5-15); BUN 15 mg/dL (7-18); BUN/Creat Ratio 15.3 RATIO (10-20); Calcium,Total 9.6 mg/dL (8.5-10.1); Chloride 105 mmol/L (98-107); Creatinine, Serum 0.98 mg/dL (0.55-1.02); EST Glomerular Filtration Rate 58 mL/min (>60); Est Glom Filt Rate - Afr Amer 70 mL/min (>60); Glucose 107 mg/dL (74-106); Sodium Level 139 mmol/L (136-145); Troponin-I HS (w/2H Reflex) 147 pg/mL (3.0-54.0)
--- NOTE | 2023-11-05 03:04 | PCM.HP.STD ---
HPI - General General Date of Admission: 11/05/23 Date of Service: 11/05/23 Chief Complaint: Chest Pain with diaphoresis and shortness of breath HPI Narrative SADAF KRUGER, is a 83 F with a past medical history of essential hypertension, obesity; with BMI of 32.1 this admission, history of breast cancer; status post left mastectomy with negative lymph nodes and no chemotherapy or radiation, history of COVID-19, history of vitamin B12 deficiency, depression with anxiety, glaucoma, GERD and osteoarthritis who presents to [facility] ER complaining of chest pain with diaphoresis and shortness of breath. Ms. Kruger reports her symptoms began approximately 5 hours prior to arrival with the abrupt onset of severe chest pain that was initially substernal and then radiated across her anterior chest wall and was pressure-like, constant and was made better or worse by nothing. She also admits to some nonproductive cough, mild shortness of breath with slight diaphoresis. She denies associated fever, chills, nausea, vomiting, palpitations, recent illness, recent injury or recent medication changes he does have evidence of left subconjunctival hemorrhage. In the ER her initial troponin was markedly elevated at 147 pg/mL with an EKG that did show nonspecific changes in V1 and V2 with inverted T waves - but there was no evidence of acute ischemia complicated by clinical evidence of uncontrolled hypertension with blood pressure of 179/87 mmHg along with an abnormal chest x-ray that shows chronic patchy bronchiectatic changes with mucoid impaction in the right upper lobe similar to her previous CT scan in September 2020 (with new CT pending at this time) and she was then admitted to the PCU for ongoing care for status expected to be greater than 48 hours. [facility] Medical History Anxiety and depression Breast cancer Hypertension Home Medications alprazolam 0.25 mg tablet 0.125 - 0.25 mg PO BID PRN PRN Anxiety 10/14/15 [History Last Taken 08/26/22] amlodipine 5 mg tablet 5 mg PO DAILY blood prssure 10/14/15 [History Last Taken 08/31/22] timolol maleate 0.5 % eye drops 1 drp BID glaucoma 10/14/15 [History Last Taken 08/31/22] ergocalciferol (vitamin D2) 1,250 mcg (50,000 unit) capsule (Vitamin D2) 50,000 unit PO UD supplement 01/26/16 [History Last Taken 08/22/22] fluticasone furoate 200 mcg-vilanterol 25 mcg/dose inhalation powder (Breo Ellipta) 1 puff inhalation DAILY lungs 11/03/18 [History Last Taken 08/31/22] omeprazole 40 mg capsule,delayed release 40 mg PO DAILY gerd 11/03/18 [History Last Taken 08/31/22] penicillin V potassium 500 mg tablet 500 mg PO DAILY prophylaxis 09/12/20 [History Last Taken 08/31/22] venlafaxine 150 mg capsule,extended release 24 hr 150 mg PO DAILY depression 09/12/20 [History Last Taken 08/31/22] albuterol sulfate 90 mcg/actuation aerosol inhaler 2 inh inhalation Q4H PRN Wheezing 08/31/22 [History Last Taken 08/30/22] fexofenadine 180 mg tablet 180 mg PO DAILY allergies 08/31/22 [History Last Taken 08/31/22] fluticasone propionate 50 mcg/actuation nasal spray,suspension 2 spray intranasal DAILY allergies 08/31/22 [History Last Taken 2 Days Ago ~08/29/22] ibuprofen 200 mg tablet (Advil) 200 mg PO QHS PAIN 08/31/22 [History Last Taken 08/30/22] Allergy/AdvReac Type Severity Reaction Status Date / Time hydrogen peroxide AdvReac Other Verified 11/05/23 04:23 oxycodone HCl [From Percodan] AdvReac Nausea Verified 11/05/23 04:23 oxycodone terephthalate AdvReac Nausea Verified 11/05/23 04:23 [From Percodan] Sulfa (Sulfonamide AdvReac Nausea/Vom/ Verified 11/05/23 04:23 Antibiotics) Diarrhea Surgical History H/O: hysterectomy Hx of appendectomy Hx of cholecystectomy Hx of mastectomy Hx of tonsillectomy Social History Smoking Status: Never smoker ROS ROS Narrative Review of systems: Constitutional: Patient denies fever or chills. Eyes: Patient denies blurry vision or discharge from eyes she does have left subconjunctival hemorrhage. ENT: Patient denies runny nose, sore throat or ear pain. Cardiovascular: Patient admits to chest pain but denies palpitations. Respiratory: Patient admits to cough and mild dyspnea. Gastrointestinal: Patient denies nausea or vomiting. Genitourinary: Patient does admit to urinary frequency but denies dysuria or hematuria. Musculoskeletal: Patient admits to back pain but denies neck pain. Integumentary: Patient denies abscess or rash. Neurologic: Patient admits to headache but denies focal neurologic weakness or dizziness. Allergic: Patient denies lip swelling, tongue swelling or urticaria. Hematologic: Patient denies easy bleeding or easy bruisability. Psychiatric: Patient denies uncontrolled depression or anxiety at this time. 14 point review of systems otherwise negative several positives noted above in HPI. Vital Signs Vital Signs Vital Signs: 11/05/23 00:06 11/05/23 00:10 11/05/23 02:09 Temperature 97.9 F 97.9 F Temperature Source Oral Oral Pulse Rate 78 75 Respiratory Rate 18 20 H Blood Pressure 151/91 H 151/91 H Blood Pressure Mean 111 111 Pulse Ox 96 96 97 Oxygen Delivery Method Room Air Room Air Room Air 11/05/23 02:09 Temperature Temperature Source Pulse Rate 73 Respiratory Rate 21 H Blood Pressure 179/87 H Blood Pressure Mean 117 Pulse Ox 97 Oxygen Delivery Method Room Air Weight Weight: 153 lb 10.595 oz Body Mass Index (BMI) 32.1 Physical Exam Const alert, oriented x3, no apparent distress, average body habitus and healthy appearing General Appearance: cooperative HEENT normocephalic, head/scalp atraumatic, hearing grossly normal bilaterally and moist oral mucous membranes Eyes PERRL and EOMs intact bilaterally Eyes Narrative: Evidence of left subconjunctival hemorrhage. Neck no lymphadenopathy and supple Resp normal respiratory effort, no retractions, no use of accessory muscles and clear to auscultation bilaterally Cardio regular rate and regular rhythm GI normal to inspection, nondistended, normoactive bowel sounds, soft to palpation, non-tender and non-distended Extremity normal to inspection and full ROM Skin Skin Narrative: Patient has no evidence of rash. Neuro oriented x3, CN's II-XII intact bilaterally, moves all extremities and no focal motor deficits Sensorium / Orientation: awake, alert, oriented to person, oriented to place and oriented to time Speech: speech normal Motor Exam: strength 5/5 throughout Psych affect normal Results Medical Records Data Attestation: I reviewed the patient's medical records Lab / Micro Data Attestation: I reviewed the patient's lab results. 11/05/23 04:53 11/05/23 04:53 Labs: Laboratory Results - last 24 hr 11/04/23 23:44: WBC 7.0, RBC 5.58 H, Hgb 16.1 H, Hct 49.3 H, MCV 88.4, MCH 28.9, MCHC 32.7, RDW Std Deviation 43.2, RDW Coeff of Henry 13.3, Plt Count 355, MPV 9.8, Immature Gran % (Auto) 0.300, Neut % (Auto) 57.1, Lymph % (Auto) 29.5, Phillips % (Auto) 8.7, Eos % (Auto) 3.4, Baso % (Auto) 1.0, Absolute Neuts (auto) 4.0, Absolute Lymphs (auto) 2.07, Nucleated RBC % 0, D-Dimer Quant (PE/DVT) 0.34, Sodium 139, Potassium 4.0, Chloride 105, Carbon Dioxide 28.0, Anion Gap 6, BUN 15, Creatinine 0.98, Estim Creat Clear Calc 48.70, Est GFR (MDRD) Af Amer 70, Est GFR (MDRD) Non-Af 58 L, BUN/Creatinine Ratio 15.3, Glucose 107 H, Calcium 9.6, Troponin I High Sens 147 H* Imagaing Radiology Impression Chest X-Ray 11/05/23 01:10 IMPRESSION: 1. Patchy opacities in the right upper lobe likely represent bronchiectatic changes with mucoid impaction was seen on prior CT scan. There may be concrete pneumonia. This appears increased compared with the prior chest x-ray 09/16/2020. 2. Persistent opacities right lung base unchanged. Electronically Signed: Juan Cerrato MD at 1:43 EST , Assessment & Plan Assessment/Plan (1) NSTEMI, initial episode of care: (2) Uncontrolled hypertension: PLAN: Plan 1. NSTEMI; evidenced by elevated initial troponin of 147 pg/mL present on admission - Admit to PCU. Continue ECASA and add statin, Plavix plus full-dose Lovenox. Serialize troponin. Check echocardiogram to evaluate LVEF. Give Tylenol as needed for mild to moderate level 1-5 out of 10 pain or fever. Give morphine IV as needed for severe level 6-10 out of 10 pain. Finally, we will consult the tow bar driver on-call to see this patient on-rounds in the AM for further recommendations regarding [facility] this admission with help appreciated in advance. 2. Uncontrolled Hypertension of 179/87 mm Hg present shortly after admission complicating #1 - Continue home regimen plus add low-dose metoprolol plus give prn IV hydralazine for systolic blood pressure > 160 mm Hg. 3. Chest x-ray positive for patchy opacities in the right upper lobe with bronchiectatic changes with mucoid impaction similar to previous CT - New CT of the chest is pending at this time to more precisely delineate any potential pathologic characteristics at this time. 4. Obesity; with BMI of 32.1 this admission - Weight loss will be recommended. Check TSH in light of #2. 5. History of breast cancer - Stable. 6. History of COVID-19 - Noted. 7. Depression with anxiety - Continue home medications as previous. Give Xanax as needed for breakthrough symptoms. 8. Glaucoma - Resume timolol ophthalmic drops. 9. GERD - Continue PPI. 10. Osteoarthritis - Stable. Give Tylenol as outlined in #1. 11. DVT prophylaxis - Patient on full-dose Lovenox for #1. Total time: Approximately 55 minutes. Charges/Coding Visit Charges Inpatient E&M: 15937 Init Hosp L2
--- NOTE | 2023-11-05 03:07 | CT_ITS ---
INDICATION: Bronchiectasis EXAMINATION: CT CHEST WITHOUT CONTRAST - CT Chest W/O Contrast Injection TECHNIQUE: Helically acquired images were obtained of the chest. A radiation dose optimization technique was used for this scan. IV Contrast dosage and agent: None. RADIATION DOSAGE (If Supplied By Facility): CTDIvol = ( 13.99 ) mGy, DLP = ( 436.86 ) mGycm COMPARISON: Prior study dated: CT 11/30/2018 . Chest radiograph from today. FINDINGS: LUNGS, PLEURA AND LARGE AIRWAYS: The central airways are patent. Diffuse bronchial filling defects involving right upper lobe and right lower lobe bronchi with expansion of the bronchioles and adjacent tree-in-bud nodular opacities. This appearance has progressed since 2019, but was present. No pleural effusion or thickening. No pneumothorax. THYROID: No thyroid lesions. HEART AND PERICARDIUM: Heart size is normal. No pericardial effusion. CORONARY ARTERIES: Coronary artery calcification is seen. VESSELS: Thoracic aorta is not dilated. MEDIASTINUM AND DANA: No mediastinal or hilar adenopathy. Esophagus is unremarkable. No hiatal hernia. UPPER ABDOMEN: Potential dilated right renal collecting system BONES: No suspicious lytic or blastic abnormality. Degenerative changes of the spine. CT/Chest without Contrast IMPRESSION: Multiple areas of bronchial filling defects with adjacent nodular opacity. This appearance is present on the 2019 study, though has progressed, suggesting chronic infectious/inflammatory process. Electronically Signed: Saad Marvin MD at 4:13 EST ,
[2023-11-05 03:09] LABS: Reflex Troponin-HS? (from REC) Y
--- NOTE | 2023-11-05 03:32 | EKG12_ITS ---
Test Reason : floor admit Blood Pressure : / mmHG Vent. Rate : 078 BPM Atrial Rate : 078 BPM P-R Int : 166 ms QRS Dur : 092 ms QT Int : 374 ms P-R-T Axes : 036 -41 073 degrees QTc Int : 426 ms Normal sinus rhythm Left axis deviation Moderate voltage criteria for LVH, may be normal variant ( R in aVL , [place] product ) Nonspecific ST abnormality Abnormal ECG When compared with ECG of 05-NOV-2023 00:09, MANUAL COMPARISON REQUIRED, DATA IS UNCONFIRMED Confirmed by TRACI CUNNINGHAM, LOUIS ([id number]), food expeditor GELY PETERSON ([id number]) on 11/15/2023 10:06:15 AM Referred By: Confirmed By:LOUIS AVILES MD
--- NOTE | 2023-11-05 04:11 | ECHOD_ITS ---
Reason For Study: NSTEMI, chest pain Procedure This was a 2D Doppler, Color Flow transthoracic echocardiogram. Exam performed in department. Left Ventricle Normal LV size. Moderate eccentric left ventricular hypertrophy. The estimated ejection fraction is 45-50 %. Stage 1 diastolic dysfunction. There are regional wall motion abnormalities as specified. Infero-Basal: Hypokinetic. Mid-Inferior: Akinetic. Inferior Merom : Hypokinetic. Lateral-Basal: Hypokinetic. Mid-Lateral : Akinetic. Lateral Merom : Hypokinetic. Posterior-Basal: Hypokinetic. Mid- Posterior: Akinetic. Right Ventricle Normal RV size. Normal systolic function. Atria The left and right atria are normal. Mitral Valve Mild mitral annular calcification. Mild (1+) mitral valve insufficiency. Tricuspid Valve Normal tricuspid valve. Trivial tricuspid valve insufficiency. Right ventricular systolic pressure estimated to be 37 mmHg. Aortic Valve Trisinus/trileaflet aortic valve. Mild focal aortic valve thickening. Mild (1+) aortic valve insufficiency. Pulmonic Valve Normal pulmonic valve. Great Vessels Normal aortic root. Pericardium/Pleural No pericardial effusion. MMode/2D Measurements & Calculations LVIDd: 3.9 cm IVSd: 1.6 cm Ao root diam: 3.1 cm LVIDs: 2.7 cm LVPWd: 0.98 cm RVDd: 2.5 cm FS: 29.6 % LAV(MOD-bp): 25.9 ml LVAd ap4: 22.0 cm2 LVAd ap2: 22.0 cm2 LAV(MOD-bp) Indexed: 15.9 ml/m2 LVLd ap4: 7.4 cm LVLd ap2: 7.2 cm LAV(MOD-sp2): 18.2 ml EDV(MOD-sp4): 53.7 ml EDV(MOD-sp2): 58.6 ml LAV(MOD-sp4): 35.5 ml EDV(sp4-el): 55.0 ml EDV(sp2-el): 56.9 ml LVAs ap4: 15.2 cm2 LVAs ap2: 13.0 cm2 LVLs ap4: 6.8 cm LVLs ap2: 6.0 cm ESV(MOD-sp4): 28.8 ml ESV(MOD-sp2): 23.5 ml ESV(sp4-el): 29.1 ml ESV(sp2-el): 23.6 ml EF(MOD-sp4): 46.3 % EF(MOD-sp2): 60.0 % EF(sp4-el): 47.0 % SV(MOD-sp4): 24.9 ml SV(MOD-sp2): 35.1 ml SV(sp4-el): 25.9 ml LA dimension(2D): 3.0 cm LA A4 area: 14.9 cm2 RA A4 area: 8.6 cm2 Time Measurements MV dec time: 0.31 sec Doppler Measurements & Calculations MV E max lopez: 62.5 cm/sec Lat Peak E' Lopez: 6.9 cm/sec Med Peak E' Lopez: 4.3 cm/sec MV A max lopez: 106.6 cm/sec E/E' lat: 9.1 E/E' med: 14.5 MV E/A: 0.59 MV dec slope: 201.4 cm/sec2 Ao V2 max: 125.0 cm/sec AI max lopez: 452.8 cm/sec Ao max P.2 mmHg AI max P.1 mmHg AI dec slope: 205.6 cm/sec2 AI P1/2t: 645.2 msec LV V1 max: 88.4 cm/sec PA V2 max: 68.3 cm/sec TR max lopez: 293.2 cm/sec LV V1 max P.1 mmHg TR max P.4 mmHg ECHO/Echo Complete Interpretation Summary The estimated ejection fraction is 45-50 %. Stage 1 diastolic dysfunction. There are regional wall motion abnormalities as specified. Ordering Physician: Lei Prado Referring Physician: Kristal Gutierrez M.D. Performed By: Dorinda Eid RDCS
[2023-11-05] MEDS: Metoprolol Tartrate 25 MG Tablet PO ×2 (04:56→21:22)
[2023-11-05] MEDS: Atorvastatin Calcium 40 MG Tablet PO (04:56)
[2023-11-05] MEDS: Enoxaparin 80 MG/0.8 ML Syringe 70 MG SC ×2 (04:57→21:22)
[2023-11-05] MEDS: Morphine 2 MG/ML Syringe IV (05:02)
[2023-11-05 05:08] LABS: Hematocrit 47.3 % (37-47); Hemoglobin 15.9 g/dL (12.0-15.0); Mean Corp Hgb Conc 33.6 g/dL (32-36); Mean Corpuscular Hgb 29.4 pg (27.0-32.0); Mean Corpuscular Volume 87.4 fL (81-99); Mean Platelet Vol. 9.6 fl (6.2-12.0); Platelet Count 331 K/mm3 (150-450); RBC Distribution Width CV 13.2 % (11.6-14.6); RBC Distribution Width SD 42.5 fl (35.1-43.9); Red Blood Count 5.41 M/mm3 (4.2-5.4); White Blood Count 7.4 K/mm3 (4.4-11.0)
[2023-11-05 05:42] LABS: AST(SGOT) 33 U/L (15-37); Alanine Aminotransfer ALT/SGPT 22 U/L (13-56); Albumin, Serum 3.6 g/dL (3.2-5.0); Alkaline Phosphatase 77 U/L (45-117); Anion Gap 6 (5-15); BUN 12 mg/dL (7-18); BUN/Creat Ratio 12.9 RATIO (10-20); Calcium,Total 8.6 mg/dL (8.5-10.1); Chloride 109 mmol/L (98-107); Cholesterol 163 mg/dL (200); Creatinine, Serum 0.93 mg/dL (0.55-1.02); EST Glomerular Filtration Rate 61 mL/min (>60); Est Glom Filt Rate - Afr Amer 74 mL/min (>60); Estimated Creatinine Clearance 51.91 ml/min; Globulin 3.5 g/dL (2.2-4.2); Glucose 117 mg/dL (74-106); High Density Lipoprotein 49 mg/dL; Potassium 3.8 mmol/L (3.5-5.1); Protein, Total 7.1 g/dL (6.4-8.2); Sodium Level 140 mmol/L (136-145); Thyroid Stim Hormone (TSH) 3.12 uIU/mL (0.358-3.74); Triglycerides 292 mg/dL; Troponin-I HS 2357 pg/mL (3.0-54.0); Very Low Density Lipoprotein 58 mg/dL (5-40)
[2023-11-05] MEDS: Albuterol 2.5 MG/3 ML VIAL.NEB. INHALATION ×2 (06:35→19:06)
[2023-11-05] MEDS: Budesonide Respules 0.5 MG/2 ML AMPUL.NEB. INHALATION ×2 (06:35→19:06)
[2023-11-05 07:51] LABS: Troponin-I HS 5155 pg/mL (3.0-54.0)
--- NOTE | 2023-11-05 08:00 | PN.HOSP_ITS ---
Reason for Visit Reason for Visit: Diagnoses Malignant neoplasm of unspecified site of unspecified female breast (11/05/23) Essential (primary) hypertension (11/05/23) Non-ST elevation (NSTEMI) myocardial infarction (11/05/23) Other specified abnormal findings of blood chemistry (11/05/23) Subjective Subjective Still having chest pain as well as back pain and numbness down both her arms. Objective Data Objective Data Vital Signs: Vital Signs Temp Pulse Resp BP Pulse Ox O2 Del Method 36.4 C L 65 18 162/80 H 96 Room Air 11/05/23 04:19 11/05/23 06:36 11/05/23 06:36 11/05/23 04:56 11/05/23 06:36 11/05/23 06:36 Oxygen Delivery Method Room Air Weight: 70.5 kg Body Mass Index (BMI) 32.5 Lab / Micro Data 11/05/23 04:53 11/05/23 04:53 Labs: Laboratory Results - last 24 hr 11/04/23 23:44: WBC 7.0, RBC 5.58 H, Hgb 16.1 H, Hct 49.3 H, MCV 88.4, MCH 28.9, MCHC 32.7, RDW Std Deviation 43.2, RDW Coeff of Henry 13.3, Plt Count 355, MPV 9.8, Immature Gran % (Auto) 0.300, Neut % (Auto) 57.1, Lymph % (Auto) 29.5, Boyle % (Auto) 8.7, Eos % (Auto) 3.4, Baso % (Auto) 1.0, Absolute Neuts (auto) 4.0, Absolute Lymphs (auto) 2.07, Nucleated RBC % 0, D-Dimer Quant (PE/DVT) 0.34, Sodium 139, Potassium 4.0, Chloride 105, Carbon Dioxide 28.0, Anion Gap 6, BUN 15, Creatinine 0.98, Estim Creat Clear Calc 48.70, Est GFR (MDRD) Af Amer 70, Est GFR (MDRD) Non-Af 58 L, BUN/Creatinine Ratio 15.3, Glucose 107 H, Calcium 9.6, Troponin I High Sens 147 H* 11/05/23 04:53: WBC 7.4, RBC 5.41 H, Hgb 15.9 H, Hct 47.3 H, MCV 87.4, MCH 29.4, MCHC 33.6, RDW Std Deviation 42.5, RDW Coeff of Henry 13.2, Plt Count 331, MPV 9.6, Sodium 140, Potassium 3.8, Chloride 109 H, Carbon Dioxide 25.0, Anion Gap 6, BUN 12, Creatinine 0.93, Estim Creat Clear Calc 51.91, Est GFR (MDRD) Af Amer 74, Est GFR (MDRD) Non-Af 61, BUN/Creatinine Ratio 12.9, Glucose 117 H, Calcium 8.6, Total Bilirubin 0.40, AST 33, ALT 22, Alkaline Phosphatase 77, Troponin I High Sens 2357 H*, Total Protein 7.1, Albumin 3.6, Globulin 3.5, Albumin/Globulin Ratio 1.0, Triglycerides 292 H, Cholesterol 163, LDL Cholesterol 56, VLDL Cholesterol 58 H, HDL Cholesterol 49, TSH 3.12 11/05/23 06:43: Troponin I High Sens 5155 H* Radiography Diagnostic Testing: Radiology Impression Chest X-Ray 11/05/23 01:10 IMPRESSION: 1. Patchy opacities in the right upper lobe likely represent bronchiectatic changes with mucoid impaction was seen on prior CT scan. There may be concrete pneumonia. This appears increased compared with the prior chest x-ray 09/16/2020. 2. Persistent opacities right lung base unchanged. Electronically Signed: Juan Cerrato MD at 1:43 EST , Chest CT 11/05/23 03:07 IMPRESSION: Multiple areas of bronchial filling defects with adjacent nodular opacity. This appearance is present on the 2019 study, though has progressed, suggesting chronic infectious/inflammatory process. Electronically Signed: Saad Marvin MD at 4:13 EST , Physical Exam Const alert and no apparent distress HEENT head/scalp atraumatic Resp normal respiratory effort, no retractions, no use of accessory muscles and clear to auscultation bilaterally Cardio regular rate, regular rhythm, S1 normal heart sound and S2 normal heart sound GI normal to inspection, nondistended, normoactive bowel sounds, soft to palpation, non-tender and non-distended Neuro oriented x3 and moves all extremities Sensorium / Orientation: awake and alert Assessment & Plan Assessment/Plan (1) NSTEMI, initial episode of care: (2) Uncontrolled hypertension: PLAN: Plan NSTEMI * Trop went from 147 to 2357 to 5155. * Atorvastatin, ASA, Clopidogrel, metoprolol and therapuetic enoxaparin. * Echocardiogram shows an EF 45 to 50% with stage I diastolic dysfunction. * seen by cardiology and plan is for cardiac catheterization. Uncontrolled Hypertension * 179/87 mm Hg present shortly after admission * Continue home regimen plus add low-dose metoprolol plus give prn IV hydralazine for systolic blood pressure > 160 mm Hg. Chronic conditions: * Obesity; with BMI of 32.1 this admission - Weight loss will be recommended. Check TSH 3.12 * History of breast cancer - continue outpt follow up. * Depression with anxiety - Continue home medications as previous. Give Xanax as needed for breakthrough symptoms. * Glaucoma - Resume timolol ophthalmic drops. * GERD - Continue PPI. * Osteoarthritis - Stable. DVT prophylaxis -not indicated as patient is already anticoagulated. Discussed with family at bedside. Charges/Coding Visit Charges Inpatient E&M: 53349 Subs Hosp L2
[2023-11-05] MEDS: Clopidogrel Bisulfate 75 MG Tablet PO (09:26)
[2023-11-05] MEDS: amLODIPine 5 MG Tablet PO (09:26)
[2023-11-05] MEDS: Aspirin 81 MG TAB.CHEW PO (09:26)
[2023-11-05] MEDS: Nitroglycerin (INPATIENT USE) 0.4 MG TAB.SUBL SL ×2 (10:29→10:43)
[2023-11-05] MEDS: Loratadine 10 MG Tablet PO (10:38)
[2023-11-05] MEDS: Venlafaxine XR 150 MG Capsule PO (10:38)
[2023-11-05] MEDS: Penicillin Vk 250 MG Tablet 500 MG PO (10:38)
[2023-11-05] MEDS: Pantoprazole Sodium 40 MG Tablet PO (10:38)
[2023-11-05] MEDS: Timolol 0.5% 5ML OPTH.BTL 1 DRP OPHTHALMIC ×2 (10:44→21:21)
[2023-11-05] MEDS: Acetaminophen 325 MG Tablet 650 MG PO ×2 (10:48→21:22)
--- NOTE | 2023-11-05 11:15 | CASEMGMT ---
RN CM Face to Face with patient for initial transition planning/care coordination assessment. RN CM introduced self and role at [facility]. Patient lying in bed, alert and oriented, and son at bedside . Patient willing to participate in assessment and is able to answer all questions appropriately. Care providers, pharmacy, and demographics verified. Patient wishes to discharge home, denies need for HHC at discharge. Patient states she has no further needs or concerns at this time. CM to follow for discharge planning needs that may arise. PCP: Brenda Specialists: Sixto assembler brazer; Preferred Pharmacy: [facility] Insurance: [employer], [employer] Prescription Benefit: yes Living Will/HPOA: yes, daughter Clara Horton LNOK: , son, daughter Living Arrangements: Patient lives with in a single story home with 3 steps and railing to enter the home. Patient is independent at home. Transportation: self, son, daughter DME/HHC: Patient has shower chair, cane, walker, grab bars at home. No previous HHC or SNF. Disposition Plan: Patient to discharge home with family support and follow-up plans in place. Misty MOLINA, RN, CM
--- NOTE | 2023-11-05 11:29 | PCM.CONS.C ---
Assessment & Plan Assessment/Plan (1) Breast cancer: (2) NSTEMI, initial episode of care: (3) Chest pain: (4) Elevated troponin: PLAN: Plan 83-year-old, pleasant patient presented to the ER At [facility] brought in by the EMS as she had symptoms of chest pain evidently the symptoms had been from yesterday morning and Her symptoms got worse described as severe retrosternal with some radiation to the back as well she had numbness and discomfort in both left and right arm. Symptoms responded this morning to nitroglycerin type II Patient was treated for non-STEMI by Lovenox, atorvastatin, beta-trudy, aspirin There is no prior cardiac history She had a history of hypertension History of breast cancer status postsurgery in 1988 and she been following regularly with mammogram. The passenger solicitor showed normal sinus Cardiac exam S1-S2 regular Chest exam is clear to auscultation Cardiac care plan; 1. I reviewed and discussed her current medication today She had significant elevation of cardiac biomarker with high sensitive troponin I unchanging the EKG Likely she had a lesion in the left circumflex artery. The echocardiographic evaluation Today revealed evidence of inferior posterior hypokinesia overall LV function is mildly reduced And no significant valve abnormality Her aortic valve is a trileaflet with no evidence of aortic stenosis. 2. Patient still had symptoms of chest pain when I came to see and I will proceed with cardiac catheterization Cardiac care plan and plan of cardiac catheterization discussed in detail today with the patient nursing staff and the family and she elected to proceed and will proceed with cardiac cath. Yris Zavala MD,[facility] HPI Consult Data Date of Consult: 11/05/23 HPI Narrative Reason for Consultation: NSTEMI/CP HPI Narrative: SADAF KRUGER, is a 83 F who presents COUNTS INCLUDE 234 BEDS AT THE [facility] Medical History Anxiety and depression Breast cancer Hypertension Home Medications alprazolam 0.25 mg tablet 0.125 - 0.25 mg PO BID PRN PRN Anxiety 10/14/15 [History Last Taken 08/26/22] amlodipine 5 mg tablet 5 mg PO DAILY blood prssure 10/14/15 [History Last Taken 08/31/22] timolol maleate 0.5 % eye drops 1 drp BID glaucoma 10/14/15 [History Last Taken 08/31/22] ergocalciferol (vitamin D2) 1,250 mcg (50,000 unit) capsule (Vitamin D2) 50,000 unit PO UD supplement 01/26/16 [History Last Taken 08/22/22] fluticasone furoate 200 mcg-vilanterol 25 mcg/dose inhalation powder (Breo Ellipta) 1 puff inhalation DAILY lungs 11/03/18 [History Last Taken 08/31/22] omeprazole 40 mg capsule,delayed release 40 mg PO DAILY gerd 11/03/18 [History Last Taken 08/31/22] penicillin V potassium 500 mg tablet 500 mg PO DAILY prophylaxis 09/12/20 [History Last Taken 08/31/22] venlafaxine 150 mg capsule,extended release 24 hr 150 mg PO DAILY depression 09/12/20 [History Last Taken 08/31/22] albuterol sulfate 90 mcg/actuation aerosol inhaler 2 inh inhalation Q4H PRN Wheezing 08/31/22 [History Last Taken 08/30/22] fexofenadine 180 mg tablet 180 mg PO DAILY allergies 08/31/22 [History Last Taken 08/31/22] fluticasone propionate 50 mcg/actuation nasal spray,suspension 2 spray intranasal DAILY allergies 08/31/22 [History Last Taken 2 Days Ago ~08/29/22] ibuprofen 200 mg tablet (Advil) 200 mg PO QHS PAIN 08/31/22 [History Last Taken 08/30/22] Allergy/AdvReac Type Severity Reaction Status Date / Time hydrogen peroxide AdvReac Other Verified 11/05/23 04:23 oxycodone HCl [From Percodan] AdvReac Nausea Verified 11/05/23 04:23 oxycodone terephthalate AdvReac Nausea Verified 11/05/23 04:23 [From Percodan] Sulfa (Sulfonamide AdvReac Nausea/Vom/ Verified 11/05/23 04:23 Antibiotics) Diarrhea Surgical History H/O: hysterectomy Hx of appendectomy Hx of cholecystectomy Hx of mastectomy Hx of tonsillectomy Social History Smoking Status: Never smoker Physical Exam Cardio Cardio Narrative: This patient seen and evaluated today at bedside/along with the nursing staff Family were at bedside. Patient admitted with symptoms of retrosternal chest pain with numbness of both left and right arm Evidently the symptoms has been from yesterday morning. e d tech showed normal sinus rhythm Cardiovascular exam S1-S2 is regular Chest exam is clear to auscultation bilateral Examination lower extremity no lower extremity edema Risk Stratification Risk Stratification Applicable: Yes Age >/= 65: Yes >/= 3 CAD Risk Factors (HTN, HLD, DM, family hx of CAD, or current smoker): Yes Aspirin Use in the Past 7 Days: Yes Severe Angina (>/= episodes in 24 hours): Yes EKG ST Changes >/= 0.5mm: Yes Positive Cardiac Marker: Yes PATRICIA Risk Stratification Score: 6 PATRICIA % Risk: 41% Risk Objective Data Vital Signs: Vital Signs Temp Pulse Resp BP Pulse Ox O2 Del Method 97.8 F 81 16 108/66 96 Room Air 11/05/23 10:26 11/05/23 10:52 11/05/23 10:52 11/05/23 10:52 11/05/23 10:52 11/05/23 10:26 Oxygen Delivery Method Room Air Weight: 155 lb 6.814 oz Body Mass Index (BMI) 32.5 Lab / Micro Data 11/05/23 04:53 11/05/23 04:53 Labs: Laboratory Results - last 24 hr 11/04/23 23:44: WBC 7.0, RBC 5.58 H, Hgb 16.1 H, Hct 49.3 H, MCV 88.4, MCH 28.9, MCHC 32.7, RDW Std Deviation 43.2, RDW Coeff of Henry 13.3, Plt Count 355, MPV 9.8, Immature Gran % (Auto) 0.300, Neut % (Auto) 57.1, Lymph % (Auto) 29.5, Carroll % (Auto) 8.7, Eos % (Auto) 3.4, Baso % (Auto) 1.0, Absolute Neuts (auto) 4.0, Absolute Lymphs (auto) 2.07, Nucleated RBC % 0, D-Dimer Quant (PE/DVT) 0.34, Sodium 139, Potassium 4.0, Chloride 105, Carbon Dioxide 28.0, Anion Gap 6, BUN 15, Creatinine 0.98, Estim Creat Clear Calc 48.70, Est GFR (MDRD) Af Amer 70, Est GFR (MDRD) Non-Af 58 L, BUN/Creatinine Ratio 15.3, Glucose 107 H, Calcium 9.6, Troponin I High Sens 147 H* 11/05/23 04:53: WBC 7.4, RBC 5.41 H, Hgb 15.9 H, Hct 47.3 H, MCV 87.4, MCH 29.4, MCHC 33.6, RDW Std Deviation 42.5, RDW Coeff of Henry 13.2, Plt Count 331, MPV 9.6, Sodium 140, Potassium 3.8, Chloride 109 H, Carbon Dioxide 25.0, Anion Gap 6, BUN 12, Creatinine 0.93, Estim Creat Clear Calc 51.91, Est GFR (MDRD) Af Amer 74, Est GFR (MDRD) Non-Af 61, BUN/Creatinine Ratio 12.9, Glucose 117 H, Calcium 8.6, Total Bilirubin 0.40, AST 33, ALT 22, Alkaline Phosphatase 77, Troponin I High Sens 2357 H*, Total Protein 7.1, Albumin 3.6, Globulin 3.5, Albumin/Globulin Ratio 1.0, Triglycerides 292 H, Cholesterol 163, LDL Cholesterol 56, VLDL Cholesterol 58 H, HDL Cholesterol 49, TSH 3.12 11/05/23 06:43: Troponin I High Sens 5155 H* Cardiology Labs/Tests 11/04/23 23:44: WBC 7.0, RBC 5.58 H, Hgb 16.1 H, Hct 49.3 H, MCV 88.4, MCH 28.9, MCHC 32.7, Plt Count 355, MPV 9.8, Immature Gran % (Auto) 0.300, Neut % (Auto) 57.1, Lymph % (Auto) 29.5, Carroll % (Auto) 8.7, Eos % (Auto) 3.4, Baso % (Auto) 1.0, Absolute Neuts (auto) 4.0, Nucleated RBC % 0, D-Dimer Quant (PE/DVT) 0.34, Sodium 139, Potassium 4.0, Chloride 105, Carbon Dioxide 28.0, Anion Gap 6, BUN 15, Creatinine 0.98, Est GFR (MDRD) Af Amer 70, Est GFR (MDRD) Non-Af 58 L, BUN/Creatinine Ratio 15.3, Glucose 107 H, Calcium 9.6 11/05/23 04:53: WBC 7.4, RBC 5.41 H, Hgb 15.9 H, Hct 47.3 H, MCV 87.4, MCH 29.4, MCHC 33.6, Plt Count 331, MPV 9.6, Sodium 140, Potassium 3.8, Chloride 109 H, Carbon Dioxide 25.0, Anion Gap 6, BUN 12, Creatinine 0.93, Est GFR (MDRD) Af Amer 74, Est GFR (MDRD) Non-Af 61, BUN/Creatinine Ratio 12.9, Glucose 117 H, Calcium 8.6, Total Bilirubin 0.40, Triglycerides 292 H, Cholesterol 163, LDL Cholesterol 56, VLDL Cholesterol 58 H, HDL Cholesterol 49 Rhythm: EKG: ECHO: Stress Test: Cardiac Cath: PCI: CT Surgery: Holter monitor: EPS: PPM: CXR: Chest CT Scan: Radiography Diagnostic Testing: Radiology Impression Chest X-Ray 11/05/23 01:10 IMPRESSION: 1. Patchy opacities in the right upper lobe likely represent bronchiectatic changes with mucoid impaction was seen on prior CT scan. There may be concrete pneumonia. This appears increased compared with the prior chest x-ray 09/16/2020. 2. Persistent opacities right lung base unchanged. Electronically Signed: Juan Cerrato MD at 1:43 EST , Chest CT 11/05/23 03:07 IMPRESSION: Multiple areas of bronchial filling defects with adjacent nodular opacity. This appearance is present on the 2019 study, though has progressed, suggesting chronic infectious/inflammatory process. Electronically Signed: Saad Marvin MD at 4:13 EST , Echocardiogram 11/05/23 04:11 Interpretation Summary The estimated ejection fraction is 45-50 %. Stage 1 diastolic dysfunction. There are regional wall motion abnormalities as specified. Ordering Physician: Lei Prado Referring Physician: Kristal Gutierrez M.D. Performed By: Dorinda Eid RDCS
--- NOTE | 2023-11-05 13:45 | EKG12_ITS ---
Test Reason : POST CATH Blood Pressure : / mmHG Vent. Rate : 063 BPM Atrial Rate : 063 BPM P-R Int : 180 ms QRS Dur : 082 ms QT Int : 422 ms P-R-T Axes : 033 -43 082 degrees QTc Int : 431 ms Critical Test Result: STEMI Normal sinus rhythm Left axis deviation Moderate voltage criteria for LVH, may be normal variant ( R in aVL , Rutherford product ) Lateral infarct , possibly acute ACUTE HI / STEMI Abnormal ECG Confirmed by TRACI CUNNINGHAM, LOUIS ([id number]), newspaper editor GELY PETERSON ([id number]) on 11/15/2023 10:07:50 AM Referred By: Confirmed By:LOUIS AVILES MD
--- NOTE | 2023-11-05 13:48 | PCIREPORT_ITS ---
PCI Cardiac Cath Report PCI Report: PCI cardiac cath report; 1. Moderate sedation 2. Selective cholangiography 3. Selective right cholangiography 4. Successful PCI of the culprit, occluded mid left circumflex with predilatation using 2 x 12 mm balloon, followed by drug-eluting stent placement 2.5 x 15 mm, overlapped with 3 x 22 mm to the proximal circumflex artery. Pre- PATRICIA 0 flow post PCI , achieved PATRICIA-3 flow. with no hemodynamic compromise and stable clinically. And reduction of proximal stenosis from 90% to 0%. 5. Placement of TR band to close the right radial artery arteriotomy site Consent; Risk and benefit of procedure explained detail patient elected to proceed informed consent obtained Preprocedure diagnosis; 83-year-old patient presented with symptoms of ongoing chest pain This happened actually yesterday morning symptoms got worse On EMS was called and brought into the ED at [facility] where clinical diagnosis of Non-ST elevation UT with change in the EKG in the left circumflex ST depression noted in V2 V3 and echocardiogram showing mildly reduced LV function With inferoposterior hypokinesia Ejection fraction in the range of 45-50% Patient treated with medical therapy with Lovenox, Plavix, aspirin as well as atorvastatin and beta-trudy As she continued to have symptoms of chest pain this morning we will proceed with cardiac catheterization. Diagnostic and interventional catheter used 1. 6 Green[place]ic sheath placed in the right radial artery 2. 5 Greenlandic JL 3.5 diagnostic catheter 3. 5 Green[place]ic R4 4. 6 Green[place]ic JL 3.5 guide catheter 5. 0.014 180 cm run-through extra floppy straight guidewire 6. 2 x 12 mm balloon 7. 2.5 x 15 mm [place] frontiers 8. 3 x 22 mm [place] frontiers 9. 3 x 12 mm NC balloon/Euphora AC T was checked and acceptable Medication used in the [employer] Patient was given 180 mg of Brilinta in the [employer] Heparin a total of 6000 units IV Cocktail of verapamil, nitro and heparin 3000 through the right radial sheath Procedure in detail; Patient brought to the [employer], right radial artery area prepped and draped in the usual sterile fashion Will proceed with a 6 Greenlandic sheath to the right radial artery Then we proceeded with a diagnostic catheter 5 Greenlandic JL 3.5 advanced sending aorta cannulated the left main Following this catheter exchanged for 5 Greenlandic JR4 and selective angiographic right Cholestin were obtained Following this angiographic study was reviewed This patient has an echocardiogram which showed EF mildly reduced With no significant valve abnormality. And segmental wall motion abnormality noted in the L CX distribution/inferoposterior hypokinesia therefore we will proceed with PCI of the circumflex Using a guide catheter 3.5 JL 6 advancing into [place] cannulated the left main angiogram via left main obtained and will proceed with the PCI of the culprit which is occluded mid left circumflex and a high-grade lesion of around 90% of the proximal circumflex Using a drug-eluting stent as specified Coronary angiographic findings; 1. Left main is normal angiographically bifurcating into LAD and the left circumflex 2. Left anterior descending artery moderate in size with prominent pheresed diagonal ostium of the first diagonal had around 5060% however the LAD had no obstructive atherosclerosis There are abundant septal branches The left anterior descending artery does not reach all the way to the apex 3. The left circumflex is moderate to large in size With a 90% lesion involving the proximal circumflex An occluded mid circumflex 3. RCA dominant large with the diffuse atherosclerosis involving the distal RCA of around 70% Conclusion recommendation Successful PCI of the culprit lesion in a patient with non-ST elevation UT 2. Patient to continue on dual antiplatelet therapy with Brilinta 90 mg twice daily in addition to low-dose aspirin 3. Patient had a lesion in the distal RCA this can be done as an outpatient and on Tuesday If remains stable clinically patient can be discharged home tomorrow with the plan of elective PCI on Tuesday for the RCA Patient scheduled for cardiac rehab phase 1 at [facility] Will continue the rest of the medication which include high-dose statin atorvastatin, low-dose beta-trudy,. No complication in the [employer] Yris Zavala MD,FACC,[facility]
[2023-11-05] MEDS: 0.9% Normal Saline (1000mL) 1,000 ML 150 ML IV (14:00)
[2023-11-06 03:10] VITALS: BP 129/85; PULSE 79; RESP 17; TEMP 36.5; O2SAT 96
[2023-11-06 06:48] LABS: Hematocrit 45.1 % (37-47); Hemoglobin 14.4 g/dL (12.0-15.0); Mean Corp Hgb Conc 31.9 g/dL (32-36); Mean Corpuscular Hgb 28.6 pg (27.0-32.0); Mean Corpuscular Volume 89.7 fL (81-99); Mean Platelet Vol. 10.1 fl (6.2-12.0); Platelet Count 313 K/mm3 (150-450); RBC Distribution Width CV 13.4 % (11.6-14.6); RBC Distribution Width SD 43.9 fl (35.1-43.9); Red Blood Count 5.03 M/mm3 (4.2-5.4); White Blood Count 7.8 K/mm3 (4.4-11.0)
[2023-11-06 06:58] LABS: Scan Indicated on CBC? Y/N NO
[2023-11-06 07:08] VITALS: PULSE 85; RESP 18; O2SAT 95
[2023-11-06] MEDS: Budesonide Respules 0.5 MG/2 ML AMPUL.NEB. INHALATION (07:08)
[2023-11-06] MEDS: Albuterol 2.5 MG/3 ML VIAL.NEB. INHALATION (07:08)
[2023-11-06 07:13] LABS: ALB/GLOB Ratio 0.9 RATIO (0.9-2.4); AST(SGOT) 307 U/L (15-37); Alanine Aminotransfer ALT/SGPT 63 U/L (13-56); Albumin, Serum 3.1 g/dL (3.2-5.0); Alkaline Phosphatase 75 U/L (45-117); Anion Gap 6 (5-15); BUN 13 mg/dL (7-18); BUN/Creat Ratio 17.1 RATIO (10-20); Calcium,Total 8.8 mg/dL (8.5-10.1); Chloride 107 mmol/L (98-107); Creatinine, Serum 0.76 mg/dL (0.55-1.02); EST Glomerular Filtration Rate 77 mL/min (>60); Est Glom Filt Rate - Afr Amer 94 mL/min (>60); Estimated Creatinine Clearance 48.27 ml/min; Globulin 3.3 g/dL (2.2-4.2); Glucose 110 mg/dL (74-106); Potassium 3.5 mmol/L (3.5-5.1); Protein, Total 6.4 g/dL (6.4-8.2); Sodium Level 139 mmol/L (136-145)
--- NOTE | 2023-11-06 07:52 | PN.HOSP_ITS ---
Subjective Subjective Feels well. Denies any chest pain or back pain nor any upper extremity paresthesias. Objective Data Objective Data Vital Signs: Vital Signs Temp Pulse Resp BP Pulse Ox O2 Del Method O2 Flow Rate 36.5 C L 85 18 129/85 H 95 Room Air 2 11/06/23 03:10 11/06/23 07:08 11/06/23 07:08 11/06/23 03:10 11/06/23 07:08 11/06/23 07:08 11/05/23 16:03 Oxygen Flow Rate (L/min) 2 Oxygen Delivery Method Room Air Weight: 70.5 kg Body Mass Index (BMI) 32.5 Intake & Output: Intake and Output for Last 24 Hours 11/04/23 11/05/23 11/06/23 23:59 23:59 23:59 Intake Total 1760 / 1760 Balance 1760 / 1760 Lab / Micro Data 11/06/23 05:27 11/06/23 05:27 Labs: Laboratory Results - last 24 hr 11/06/23 05:27: WBC 7.8, RBC 5.03, Hgb 14.4, Hct 45.1, MCV 89.7, MCH 28.6, MCHC 31.9 L D, RDW Std Deviation 43.9, RDW Coeff of Henry 13.4, Plt Count 313, MPV 10.1, Sodium 139, Potassium 3.5, Chloride 107, Carbon Dioxide 26.0, Anion Gap 6, BUN 13, Creatinine 0.76, Estim Creat Clear Calc 48.27, Est GFR (MDRD) Af Amer 94, Est GFR (MDRD) Non-Af 77, BUN/Creatinine Ratio 17.1, Glucose 110 H, Calcium 8.8, Total Bilirubin 0.60, AST 307 H, ALT 63 H, Alkaline Phosphatase 75, Total Protein 6.4, Albumin 3.1 L, Globulin 3.3, Albumin/Globulin Ratio 0.9 Radiography Diagnostic Testing: Radiology Impression Echocardiogram 11/05/23 04:11 Interpretation Summary The estimated ejection fraction is 45-50 %. Stage 1 diastolic dysfunction. There are regional wall motion abnormalities as specified. Ordering Physician: Lei Prado Referring Physician: Kristal Gutierrez M.D. Performed By: Dorinda Eid RDCS Physical Exam Const alert and no apparent distress HEENT head/scalp atraumatic Resp normal respiratory effort, no retractions, no use of accessory muscles and clear to auscultation bilaterally Cardio regular rate, regular rhythm, S1 normal heart sound and S2 normal heart sound GI normal to inspection, nondistended, normoactive bowel sounds, soft to palpation, non-tender and non-distended Neuro oriented x3 and CN's II-XII intact bilaterally Psych affect normal Assessment & Plan Assessment/Plan (1) NSTEMI, initial episode of care: (2) Uncontrolled hypertension: PLAN: Plan NSTEMI * Trop went from 147 to 2357 to 5155. * Atorvastatin, ASA, Clopidogrel, metoprolol and therapuetic enoxaparin. * Echocardiogram shows an EF 45 to 50% with stage I diastolic dysfunction. * Patient underwent PCI to left circumflex lesion with drug-eluting stent. * Patient to continue with ticagrelor and aspirin. Patient will have staged PCI of the RCA lesion as outpatient next week. Uncontrolled Hypertension * Currently improved * 179/87 mm Hg present shortly after admission * Continue home regimen plus add low-dose metoprolol plus give prn IV hydralazine for systolic blood pressure > 160 mm Hg. * Overall improved. Chronic conditions: * Obesity; with BMI of 32.1 this admission - Weight loss will be recommended. Check TSH 3.12 * History of breast cancer - continue outpt follow up. * Depression with anxiety - Continue home medications as previous. Give Xanax as needed for breakthrough symptoms. * Glaucoma - Resume timolol ophthalmic drops. * GERD - Continue PPI. * Osteoarthritis - Stable. DVT prophylaxis -not indicated as patient is already anticoagulated.
--- NOTE | 2023-11-06 08:28 | DS.PCM_ITS ---
Providers Date of Admission: 11/05/23 Primary Care Physician: Dr. Kristal Gutierrez MD Consultations 11/05/23 04:11 Consult: Cardiology Urgent Consulting Provider: Catarino Long Reason for Consult: Non-ST elevation NE EMERGENT Consult: No MD Notified: Yes Date Notified: 11/05/23 Time Notified: 06:33 Method of Notification: Text Method of Consult:: In-Person Reason For Visit: NSTEMI WITH UNCONTROLLED HYPERTENSION Diagnosis Discharge Diagnosis (1) NSTEMI, initial episode of care: Status: Acute Code(s): I21.4 - Non-ST elevation (NSTEMI) myocardial infarction (2) Uncontrolled hypertension: Status: Acute Code(s): I10 - Essential (primary) hypertension Plan NSTEMI * Trop went from 147 to 2357 to 5155. * Atorvastatin, ASA, Clopidogrel, metoprolol and therapuetic enoxaparin. * Echocardiogram shows an EF 45 to 50% with stage I diastolic dysfunction. * Patient underwent PCI to left circumflex lesion with drug-eluting stent. * Patient to continue with ticagrelor and aspirin. Patient will have staged PCI of the RCA lesion as outpatient next week. Uncontrolled Hypertension * Currently improved * 179/87 mm Hg present shortly after admission * Continue home regimen plus add low-dose metoprolol plus give prn IV hydralazine for systolic blood pressure > 160 mm Hg. * Overall improved. Chronic conditions: * Obesity; with BMI of 32.1 this admission - Weight loss will be recommended. Check TSH 3.12 * History of breast cancer - continue outpt follow up. * Depression with anxiety - Continue home medications as previous. Give Xanax as needed for breakthrough symptoms. * Glaucoma - Resume timolol ophthalmic drops. * GERD - Continue PPI. * Osteoarthritis - Stable. DVT prophylaxis -not indicated as patient is already anticoagulated. Medications at Discharge Home Medications alprazolam 0.25 mg tablet 0.125 - 0.25 mg PO BID PRN PRN Anxiety 10/14/15 amlodipine 5 mg tablet 5 mg PO DAILY blood prssure 10/14/15 timolol maleate 0.5 % eye drops 1 drp BID glaucoma 10/14/15 ergocalciferol (vitamin D2) 1,250 mcg (50,000 unit) capsule (Vitamin D2) 50,000 unit PO UD supplement 01/26/16 fluticasone furoate 200 mcg-vilanterol 25 mcg/dose inhalation powder (Breo Ellipta) 1 puff inhalation DAILY lungs 11/03/18 omeprazole 40 mg capsule,delayed release 40 mg PO DAILY gerd 11/03/18 penicillin V potassium 500 mg tablet 500 mg PO DAILY prophylaxis 09/12/20 venlafaxine 150 mg capsule,extended release 24 hr 150 mg PO DAILY depression 09/12/20 albuterol sulfate 90 mcg/actuation aerosol inhaler 2 inh inhalation Q4H PRN W heezing 08/31/22 fexofenadine 180 mg tablet 180 mg PO DAILY allergies 08/31/22 fluticasone propionate 50 mcg/actuation nasal spray,suspension 2 spray intranasal DAILY allergies 08/31/22 aspirin 81 mg chewable tablet 81 mg PO DAILYCM #0 tabs 11/06/23 atorvastatin 40 mg tablet 40 mg PO QHS #30 tabs 11/06/23 clopidogrel 75 mg tablet 75 mg PO DAILY #30 tabs 11/06/23 metoprolol tartrate 25 mg tablet 25 mg PO BID #60 tabs 11/06/23 nitroglycerin 0.4 mg sublingual tablet 0.4 mg sublingual Q5M PRN Chest pain #10 tabs 11/06/23 Hospital Course Operations None Procedures 2-D Echocardiogram and Cardiac catheterization Summary of Care Provided Minutes Spent on Discharge: 35 Hospital Course: Patient presents with chest pain. Patient was found to have a non-ST ovation myocardial infarction. Patient underwent cardiac catheterization on the as she was having ongoing chest pain. She was found to have two-vessel disease involving RCA as well as circumflex. Circumflex was the culprit lesion and did have drug-eluting stent placed to the. Subsequently, the patient is feeling better. Patient will continue with aspirin and ticagrelor for 1 year. Patient follow-up cardiology as outpatient. Echocardiogram shows a reduced ejection fraction of 45 to 50%. Weight / BMI Weight Weight: 70.5 kg Body Mass Index (BMI) 32.5 ABG / Lab / Microbiology Data 11/06/23 05:27 11/06/23 05:27 Laboratory: Laboratory Results - last 24 hr 11/06/23 05:27: WBC 7.8, RBC 5.03, Hgb 14.4, Hct 45.1, MCV 89.7, MCH 28.6, MCHC 31.9 L D, RDW Std Deviation 43.9, RDW Coeff of Ehnry 13.4, Plt Count 313, MPV 10.1, Sodium 139, Potassium 3.5, Chloride 107, Carbon Dioxide 26.0, Anion Gap 6, BUN 13, Creatinine 0.76, Estim Creat Clear Calc 48.27, Est GFR (MDRD) Af Amer 94, Est GFR (MDRD) Non-Af 77, BUN/Creatinine Ratio 17.1, Glucose 110 H, Calcium 8.8, Total Bilirubin 0.60, AST 307 H, ALT 63 H, Alkaline Phosphatase 75, Total Protein 6.4, Albumin 3.1 L, Globulin 3.3, Albumin/Globulin Ratio 0.9 Radiography Diagnostic Testing: Radiology Impression Echocardiogram 11/05/23 04:11 Interpretation Summary The estimated ejection fraction is 45-50 %. Stage 1 diastolic dysfunction. There are regional wall motion abnormalities as specified. Ordering Physician: Lei Prado Referring Physician: Kristal Gutierrez M.D. Performed By: Dorinda Eid RDCS D/C Instructions Discharge Diet: Low fat / Low cholesterol Meaningful Use Info Meaningful Use Diagnoses (Choose all that apply): AMI AMI/Post PCI/Angioplasty Aspirin given w/in 24hrs of arrival?: Yes ASA at discharge?: Yes Statins at discharge?: Yes Chucho/ARB at discharge?: No Reason Chucho/ARB not ordered:: Hypotension Beta Robles at discharge?: Yes Done w/ Acute NE measure.: Yes Documented LVEF (%): 45 Discharge Plan Admission Admit Date/Time: 11/05/23 03:26 Primary Reason for Your Visit: Myocardial infarction Attending Provider: Vinod Car Primary Care Provider: Kristal Gutierrez Consulting Providers: Renata Larkin; Seda Washington; Jen Lindsay; River Arcos; Connor Carcamo; Maciel Abad; Basilio Rees; Vinod Moreno; Yris Zavala; Juan Burciaga; Francisco Sotomayor; Annabelle Sandoval; Gege Brewer; Kee Miller; Sam Oswald; Manuel Owen; Miles Ellis; Raj Wheeler MANAGEMENT ACCOUNTS MANAGER; Renata Holland NP; Vicky Leon; Lei Prado Instructions Additional Instructions / Restrictions: You had a myocardial infarction, heart attack. You had a stent placed to one- vessel and is very important that you do take aspirin and Plavix without interruption. He also have another vessel which pta recommends following up next week to have that addressed with another stent. If you have any further chest pain notify your physician or return to the emergency room. Discharge Orders/Prescriptions Prescriptions: New atorvastatin 40 mg Tablet 40 mg PO QHS Qty: 30 0RF clopidogrel 75 mg Tablet 75 mg PO DAILY Qty: 30 0RF nitroglycerin 0.4 mg Tablet, Sublingual 0.4 mg sublingual Q5M PRN (Reason: Chest pain) Qty: 10 0RF aspirin 81 mg Tablet,Chewable 81 mg PO DAILYCM Qty: 0 0RF metoprolol tartrate 25 mg Tablet 25 mg PO BID Qty: 60 0RF Continued amlodipine 5 MG tablet 5 mg PO DAILY timolol maleate 1 DROP drops 1 drp Each Eye BID alprazolam 0.25 MG tablet 0.125 - 0.25 mg PO BID PRN PRN (Reason: Anxiety) ergocalciferol (vitamin D2) [Vitamin D2] 50,000 UNIT capsule 50,000 unit PO UD Patient Comments: TAKES EVERY OTHER WEEK ON TUESDAY Rx Instructions: every other week ON TUESDAY omeprazole 40 MG capsule,delayed release(DR/EC) 40 mg PO DAILY Patient Comments: TAKE ONE CAPSULE BY MOUTH ONCE DAILY fluticasone furoate-vilanterol [Breo Ellipta] 1 EACH blister with device 1 puff inhalation DAILY Patient Comments: inhale 1 puff once daily, use with good oral care venlafaxine 150 MG capsule,extended release 24hr 150 mg PO DAILY penicillin V potassium 500 MG tablet 500 mg PO DAILY Patient Comments: take 1 tablet by mouth once daily fexofenadine 180 mg tablet 180 mg PO DAILY Patient Comments: take 1 tablet by mouth once daily albuterol sulfate 90 mcg/actuation HFA aerosol inhaler 2 inh INHALATION Q4H PRN (Reason: Wheezing) Patient Comments: inhale 2 puffs by mouth every 4 hours if needed for wheezing or shortness of breath fluticasone propionate 50 mcg/actuation spray,suspension 2 spray INTRANASAL DAILY Patient Comments: instill 2 sprays into each nostril once daily Discontinued ibuprofen [Advil] 200 mg Tablet 200 mg PO QHS Referrals / Follow Up: [facility] [Provider Group] - Within 1 Week Kristal Gutierrez MD [Primary Care Provider] - Within 2 Weeks Disposition Disposition (needs filled in before D/C Order can be placed): Home, Self Care Charges/Coding Visit Charges Inpatient E&M: 01889 Disch Hosp >30min
[2023-11-06 09:01] VITALS: BP 158/88; PULSE 93; RESP 16; TEMP 36.5; O2SAT 98
[2023-11-06] MEDS: Enoxaparin 80 MG/0.8 ML Syringe 70 MG SC (09:07)
[2023-11-06 09:08] VITALS: BP 158/88; PULSE 93
[2023-11-06] MEDS: Penicillin Vk 250 MG Tablet 500 MG PO (09:08)
[2023-11-06] MEDS: amLODIPine 5 MG Tablet PO (09:08)
[2023-11-06] MEDS: Aspirin 81 MG TAB.CHEW PO (09:08)
[2023-11-06] MEDS: Clopidogrel Bisulfate 75 MG Tablet PO (09:08)
[2023-11-06] MEDS: Metoprolol Tartrate 25 MG Tablet PO (09:08)
[2023-11-06] MEDS: Pantoprazole Sodium 40 MG Tablet PO (09:08)
[2023-11-06] MEDS: Loratadine 10 MG Tablet PO (09:08)
[2023-11-06] MEDS: Venlafaxine XR 150 MG Capsule PO (09:08)
[2023-11-06] MEDS: Timolol 0.5% 5ML OPTH.BTL 1 DRP OPHTHALMIC (09:11)
--- NOTE | 2023-11-06 10:00 | EKG12_ITS ---
Test Reason : POST-PCI Blood Pressure : / mmHG Vent. Rate : 076 BPM Atrial Rate : 076 BPM P-R Int : 162 ms QRS Dur : 084 ms QT Int : 404 ms P-R-T Axes : 041 -43 114 degrees QTc Int : 454 ms Normal sinus rhythm Left axis deviation Minimal voltage criteria for LVH, may be normal variant ( R in aVL ) T wave abnormality, consider lateral ischemia Abnormal ECG When compared with ECG of 05-NOV-2023 15:01, MANUAL COMPARISON REQUIRED, DATA IS UNCONFIRMED Confirmed by TRACI CUNNINGHAM, LOUIS ([id number]), international editorial producer GELY PETERSON ([id number]) on 11/15/2023 10:19:29 AM Referred By: KEHINDE Confirmed By:LOUIS AVILES MD
[2023-11-06 11:48] LABS: ACT Activated Clotting Time 260 sec (74-137)
--- NOTE | 2023-11-09 08:42 | CRPHASE1 ---
Patient Communication Patient Information PHII Cardiac Rehab Discussed with Patient:: Yes (pt contacted over the phone and Cardiac Rehab book sent by mail.) Guide to Cardiac Rehab Given to Patient:: Yes Cardiac Rehab Facility Choice List Given to Patient:: Yes Communication to Cardiac Rehab Choice Program [facility] CR PHII:: Communication Given to CR and Refer to [facility] Choice Program Other:: Communication Given to CR and With permission faxed order and referral information Clinical Project Assistant:: Yris Zavala Refer Phase II Cardiac Rehab:: Yes Sessions:: 36 sessions - 3 days/wk, 12 weeks Post Discharge Guide to Cardiac Rehab Mailed to Patient by CR Staff:: Yes Patient Contacted Post Discharge by CR Staff:: Yes PHII Cardiac Rehab Referral:: [facility] Phase I Charge:: Level I - Education Cardiac Rehabilitation Info Program Information Cardiac Rehabilitation Program Information: Cardiac Rehab The cardiac rehab team at [facility] consists of highly skilled exercise physiologists, nurses, respiratory therapists and physicians working together with you. Our purpose is to help you have a full recovery and achieve the goals you set for yourself. Over the years many of our patients have returned to activities they assumed they would never do again! We can help restore your confidence and motivation to make lifestyle changes that can have a significant impact on your health and quality of life! We can help answer questions and concerns you may have about exercise, lifestyle, medications, diet, stress and anxiety which are common following a hospitalization. WE monitor ECG and vital signs during exercise and discuss your progress with you and report to your physician(s). Cardiac Rehab is proven to help reduce readmissions, improve functional capacity and lower recurrence of problems with your heart. Our Cardiac Rehab program is Certified by the [place] [employer]monary [employer] (AACVPR) and Accredited by the [place] [employer] through our [facility]. You can contact us at . We invite you to call us with your questions or to get started in our program. If you have other questions or concerns be sure to ask your physician/provider during your follow-up visit. WE look forward to seeing you!
--- NOTE | 2023-11-09 08:46 | CRPH1.INSTRU ---
General Education Discussed with Patient CAD and cardiac anatomy and function:: Needs reinforcement Explanation of diagnoses and procedures:: Needs reinforcement Sign/Symptoms of ND:: Needs reinforcement Antiplatelet therapy: Needs reinforcement Proper use of NTG-SL: Needs reinforcement Emergency procedures and activation of EMS: Needs reinforcement Compliance of all prescribed medications: Needs reinforcement
== END 2023-11-06 11:00 | disposition home or self-care (01) | DRG 322 ==
LOC: ED 03:00 → PCU 07:04
PROVIDERS: Internal Medicine Interventional Cardiology; Admitting Provider Internal Medicine; Emergency Provider Emergency Medicine; PCP Internal Medicine
DX: I21.4 Non-ST elevation (NSTEMI) myocardial infarction (principal); E66.9 Obesity, unspecified; I10 Essential (primary) hypertension; F41.9 Anxiety disorder, unspecified; M19.90 Unspecified osteoarthritis, unspecified site; K21.9 Gastro-esophageal reflux disease without esophagitis; I25.10 Atherosclerotic heart disease of native coronary artery without angina pectoris; H40.9 Unspecified glaucoma; Z68.32 Body mass index [BMI] 32.0-32.9, adult; Z79.1 Long term (current) use of non-steroidal anti-inflammatories (NSAID); Z79.899 Other long term (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 therapy; Z86.16 Personal history of COVID-19
CPT/HCPCS: 36415; 71045; 71250; 80048; 80053; 80061; 84443; 84484; 85025; 85027; 85347; 85379; 92928; 93005; 93306; 93454; 94640; 99152; 99153; 99252; 99285; J7030; J7040; Q9967; C1725; C1769; C1874; C1887; C1894; C9600; G0463

== ENCOUNTER → 2024-01-02 | Outpatient (CLI) | payer MEDICARE, OTHER, SELFPAY ==
--- NOTE | 2024-01-02 12:57 | PCM.CR.HP2 ---
CR - History & Physical General Arrival date:: 01/02/24 Arrival time:: 12:57 Date of Referral:: 11/26/23 Date of CR Evaluation:: 01/02/24 Referring Physician: Dr. Maciel Abad Primary Diagnosis: PCI with stent History of Present Cardiac Event Onset Date PTCA or coronary stenting:: Yes Vessel: Left circumflex 11/05/23 Medications Ambulatory Orders Medication Instructions Recorded alprazolam 0.25 mg tablet 0.125 - 0.25 mg PO BID PRN PRN 10/14/15 Anxiety amlodipine 5 mg tablet 5 mg PO DAILY blood prssure 10/14/15 timolol maleate 0.5 % eye drops 1 drp BID glaucoma 10/14/15 ergocalciferol (vitamin D2) 1,250 50,000 unit PO UD supplement 01/26/16 mcg (50,000 unit) capsule (Vitamin D2) fluticasone furoate 200 1 puff inhalation DAILY lungs 11/03/18 mcg-vilanterol 25 mcg/dose inhalation powder (Breo Ellipta) omeprazole 40 mg capsule,delayed 40 mg PO DAILY gerd 11/03/18 release penicillin V potassium 500 mg 500 mg PO DAILY prophylaxis 09/12/20 tablet venlafaxine 150 mg 150 mg PO DAILY depression 09/12/20 capsule,extended release 24 hr albuterol sulfate 90 mcg/actuation 2 inh inhalation Q4H PRN Wheezing 08/31/22 aerosol inhaler fexofenadine 180 mg tablet 180 mg PO DAILY allergies 08/31/22 fluticasone propionate 50 2 spray intranasal DAILY allergies 08/31/22 mcg/actuation nasal spray,suspension aspirin 81 mg chewable tablet 81 mg PO DAILYCM #0 tabs 11/06/23 nitroglycerin 0.4 mg sublingual 0.4 mg sublingual Q5M PRN Chest 11/06/23 tablet pain #10 tabs atorvastatin 40 mg tablet 40 mg PO QHS #90 tabs 12/09/23 clopidogrel 75 mg tablet 75 mg PO DAILY #90 tabs 12/09/23 isosorbide mononitrate 30 mg 30 mg PO DAILY #30 tabs 12/09/23 tablet,extended release 24 hr metoprolol tartrate 25 mg tablet 25 mg PO BID #180 tabs 12/09/23 Allergies Allergies hydrogen peroxide Adverse Reaction (Verified 12/09/23 10:43) Other IN TOOTHPASTE- CAUSED BLISTERS. oxycodone HCl [From Percodan] Adverse Reaction (Verified 12/09/23 10:43) Nausea oxycodone terephthalate [From Percodan] Adverse Reaction (Verified 12/09/23 10:43) Nausea Sulfa (Sulfonamide Antibiotics) Adverse Reaction (Verified 12/09/23 10:43) Nausea/Vom/Diarrhea Sleep Disorder Evaluation Hx of Sleep Apnea: No Do you snore loudly (louder than talking or can be heard through closed doors)?: Yes Do you often feel tired/ fatigued/ sleepy during daytime?: No Has anyone observed you stop breathing during sleep?: No History of Hypertension (for STOP score): Yes (pt declines sleep study) STOP Results: Positive Advanced Directives Advanced Directives Power of Professor Of Public Administration: Yes Living Will: Yes Advance Directives Information Provided: Yes Advance Directives on File: Yes DNR Order?:: No Past Medical History Covid-19 Screening Physicial Symptoms Other Clinical Concerns Exposure Risk Pertinent Comorbidities 65 years or older:: Yes Has a serious heart condition:: Yes Past Medical Illness Medical History Anxiety and depression Breast cancer CAD (coronary artery disease) Hypertension Past Surgical History Surgical History H/O: hysterectomy Hx of appendectomy Hx of cholecystectomy Hx of mastectomy Hx of tonsillectomy Stented coronary artery (~11/05/23) Surgical History: noncontributory and - (Mastectomy) Social History Smoking History Smoking Status: Never smoker Alcohol Use Alcohol Usage: Yes (wine on occas) Occupation Occupation (List type of work in comments):: Retired Hobbies, Recreation, Social Activities Hobbies: Sewing and Reading Recreational Activities: I am able to engage in all my recreational activities Social Environment Status Marital Status: Current Living Arrangements Living Environment:: Spouse Children How many children do you have?: 2 Do any of your children live nearby?: Yes Safety Do you feel safe in your surroundings?: Yes Assistance Do you need any assistance at home?: no Review of Systems Review of Systems Hints Review of Present Symptoms: Reports Dizziness/Lightheadedness, Fatigue, Appetite - Normal, Appetite - Special Diet and Sleep - Normal; Denies Shortness of Breath at Rest, Shortness of Breath with Exertion, PVD, Operative Discomfort, Angina, Wound Healing, Heart Arrhythmia/Irregularities or Sexual Changes Pain Is Patient Pain Free?: Yes Risk Factor Assessment Chief Complaint Chief Complaint: PCI with stent Vital Signs Pulse Ox: 96 Blood Pressure: 125/74 Pulse Pulse Rate: 70 Hypertension Blood Pressure Sitting - Right Arm: 125/74 Obesity Height: 4 ft 10 in Weight:: 157 lb Weight in Pounds: 157.0 lbs Body Mass Index (BMI): 32.8 Physical Inactivity Physical Inactivity: Recreational activity Risk Stratification Risk Guidelines: Lowest Risk: Risk Factor for Smoking, Moderate Risk: Risk Factor for Dyslipidemia, Risk Factor for Diabetes and Risk Factor for Sedentary Lifestyle and Highest Risk: Risk Factor for Obesity, Risk Factor for Hypertension and Risk Factor for Depression For Smoking Smoking Risk Guidelines For Dyslipidemia Dyslipidemia Risk Guidelines For Diabetes Mellitus Diabetes Risk Guidelines For Obesity/Overweight Obesity/Overweight Risk Guidelines For Hypertension Hypertension Risk Guidelines For Sedentary Lifestyle Sedentary Lifestyle Risk Guidelines For Depression Depression Risk Guidelines Motivation Motivation to Participate On a scale of 1 to 10, how prepared are you to commit to attending program?: 4 What do you see as barriers to successfully being able to complete the program?: is ill What do you see as the benefits of succesfully completing the program? In other words, what do you hope to get out of participating in the program?: more energy Are there issues you are dealing with that will interfere with completing the program?: is ill Do you have a spouse or signficant other, family or friends who will help support you to complete the program?: yes
[2024-01-02 13:06] VITALS: BP 125/74; PULSE 70; O2SAT 96
--- NOTE | 2024-01-02 13:07 | PCM.CR.ITP ---
Diagnosis General Information Admitting Diagnosis: PCI with stent Personal Learning Style:: Audio/Visual Stage of change r/t lifestyle modifications:: Contemplation Gave educational material for:: Treating Heart Disease, How The Heart Works, What it means to have Heart Disease, How Coronary Artery Disease is Diagnosed, Heart Procedures, What Heart Medications Do, Risk Factors & Modifications, Living an Active Life, Nutrition, Emotions & Heart Disease, Stress Management & Relaxation and Sleep Disorders & Heart Disease Education/Goals Cardiac Rehabilitation Goals Personal Goals: Initial Assessment: Improve management of stress and emotions, Improve energy level, Participate in home exercise program, Improve diet and eating habits (eat healthier) and Control risk factors (learn risk factor modification) Scale for measuring improvement of personal goals Diagnosis & Disease Process Outcomes/Goals: Pt IDs own risk factors & lifestyle modifications by Session 10, Verbalizes symptoms of angina & response by session 3., Pt independently manages and Other Additional Outcomes/Goals: Plan/Interventions: Assist Pt to ID & engage in lifestyle modification to reduce CVD risk, Instruct on individual risk factors, Review symptoms of angina & emergency actions, Review secondary diagnosis & identify educational needs. and Other see comment 30 day Reassessments:: Not Met 30 day Reassessments:: Not Met 30 day Reassessments:: Not Met 30 day Reassessments:: Not Met Final Reassessments:: Not Met Safety Referral to Physical Therapy: No Referral to [facility] Case Management: No Fall Risk Assessed:: Yes Assistive Devices:: Cane Exercise - Initial Assessment Visit Date of Eval: 01/02/24 (initial eval ) Mets: Pre-: >3 METS for 30 minutes by discharge, >5 METS for 30 minutes by discharge, >7 METS for 30 minutes by discharge and Unable to meet goal due to: (see comment below) Physician Prescribed Exercise Modalities: Treadmill, Rower, Airdyne, NuStep, SciFit and Lateral [place] Frequency: 3x/week for 12 weeks [36 sessions] Intensity: 60-80% of age predicted maximum heart rate reserve Duration: 30 - 45 minutes Current METSs:: 3 Target RPE 12-16:: 82-97 Resting Blood Pressure: 125/74 EKG Type: NSR Outcomes & Goals Goals:: Verbalizes understanding of THR, RPE & goal METS by session 6, Documents in home exercise log/reports 30 min aerobic 5 day/wk by DC, Demonstrates accurate pulse taking by DC and Other additional outcome/goals: see below Intervention & Plan Exercise Program Goals: Instruct on personal THR & RPE, Instruct on MET level & personal MET goal, Show patient to take own pulse /validate performance until accurate, Instruct on home exercise and Other additional plan/int Physical Activity Home Exercise Physical Activity - Home Exercise: Safe Exercise, Warm-up, Self-monitoring, Cool-Down, Home Exercise > 30 min Daily and Sitting Time <3 hours/daily Outcomes & Goals Outcomes/Goals: Demonstrates correct Warm-up/exercise Cool-Down (S3) if = 2.5 METs, Verbalizes symptoms of exercise intolerance by Session 3 (S3), Demonstrate safe equipment use (S3) & follows exercise prescrition (6) and Other: See below Intervention & Plan Plan/Intervention: Instruct warm-up & cool-down if exercising at > 2 METs, Instruct on symptoms of exercise intolerance & actions to take, Instruct & monitor on saf, Assess intial functional capacity & safety risk and Other See below Nutrition - Initial Assessment Program Goals Nutrition Program Goals Patient has diagnosis of Hyperlipidemia (ICD E78)?: No Visit Date of Eval: 01/02/24 (initial eval) Cholesterol/Lipids (Other Core Measures) Determine presence & major risk factors that modify LDL goal: Hypertension or hypertensive medication, Low HDL cholesterol <40 mg/dL*, Family history of premature CHD in Male < 55 years: female <65 yearsFa and Age men > 45 years; women >/= 55 years Outcomes/Goals: Pt IDs own risk factors & lifestyle modifications by Session 10, Verbalizes symptoms of angina & response by session 3., Pt independently manages and Other Additional Outcomes/Goals: Intervention/Plan: Advocate for lipid panel cholesterol medication if applicable, Instruct on personal lipid levels & lipid goals/NCEP guidelines, Instruct on cholesterol and Other additional plan/int Diabetes (Other Core Measures) Diabetes Type: Not Applicable Weight Mgt (Other Care) Height: 4 ft 10 in Weight:: 157 lb BMI: 32.8 Diagnosis Overweight/Obesity BMI> 30% ICD-10 E66: Yes Diagnosis High BMI/Morbid Obesity BMI> 35% ICD-10 Z68: No Outcomes/Goals: Pt sets, maintains & shows weight loss goal & trend during rehab and Other additional outcomes/goals Intervention/Plan: Instruct on ideal BMI & set weight loss goal w/patient, Assist pt to ID & incorporate diet changes for weight loss by S9, Refer to Structured Weight Loss program as appropriate, Encourage goal of using 250-300dcal per session for weight loss and Other additional plan/interventions Healthy Eating Habits Will attend diet classes:: Yes Outcomes/Goals:: Consume diet rich in vegs,fruits,whole grain/high fiber,fish,lean meat, Limit sat/trans fats,cholesterol & added salts & sugars and Other additional outcome/goals: Intervention/Plan:: Assess current eating habits and Other Additional plan/interventions Education Gave educational materials for:: Signs & symptoms of hypoglycemia, Signs & symptoms of hyperglycemia, Relate diabetes to coronary artery disease and Healthy eating Core - Initial Assessment Visit Date of Eval: 01/02/24 (initial eval) Medication Compliance Preventative Medication(s):: Clopidogrel/P2Y12 inhibit, Statin/lipid and Beta trudy H/O mental health issues: depression, anxiety, or addiction?: Yes Doesn?t believe in the benefits of treatment?: No Believes medications are unnecessary or harmful?: No Has a concern about medication side effects?: No Expresses concern over the cost of medications?: No Outcomes/Goals: Verbalizes medications,desired effect & common side effects @ DC, Pt self-reports following medication regimen, Keeps card in wallet w/medications listed by DC and Other additional outcome/goals: Interventions/plans: Instruct on medication effects & side effects, Review medication list w/patient every two weeks, Instruct importance of taking meds as ordered & assist problem solving and Other additional Tobacco Use Tobacco Use: Non-smoker Hypertension Hypertension Diagnosis:: Hypertension ICD-10 I10 Resting Blood Pressure:: 125/74 [place] [employer] Hypertension Guidelines Outcomes/Goals: Able to verbalize/achieve optimal blood pressure <130/80, Incorporates diet changes & exercise for blood pressure control by DC and Other additional outcomes/goals Interventions/plan: Instruct on optimal blood pressure, hypertension & medications, Instruct on effects of sodium, alcohol, stress, exercise &hypertension and Other additional plan/interventions Tobacco Cessation Referral Smoking Cessation Referral:: No Individual Education/Counseling:: No Education Schedule Given:: Yes Psychosocial - Initial Assess VIsit Date of Eval: 01/02/24 (initial eval ) History of Emotional Disorders: Anxious and Depression (pt is on meds) Target Goals Target Goals Outcomes/Goals: See list Psychosocial Outcomes/Goals:: ID's personal stressors & 2 strategies to manage stress by discharge and Other Additional outcome/goals: Intervention/Plan: See List Interventions/Plan:: Assess stressors,coping strategies & signs of derpression on admission, Instruct/assist pt to develop coping & personal stress Mgt strategies, Refer to Behavioral Health if appropriate, Refer to Physician if appropriate, Instruct patient to recognize signs & symptoms of depression, Instruct patient to recog and Other additional plan/intervention Patient Health Questionnaire PHQ-9 Screening Initial Assessment: 1. Little interest or pleasure in doing things: Not at all 2. Feeling down, depressed, or hopeless: Not at all 3. Trouble falling or staying asleep, or sleeping too much: Not at all 4. Feeling tired or having little energy: More than half the days 5. Poor appetite or overeating: Not at all 6. Feeling bad about yourself -- or that you are a failure or have let yourself or your family down: Not at all 7. Trouble concentrating on things, such as reading the newspaper or watching television: Not at all 8. Moving or speaking so slowly that other people could have noticed. Or the opposite - being so fidgety or restless that you have been moving around a lot more than usual: Not at all 9. Thoughts that you would be better off , or of hurting yourself in some way: Not at all How difficult have these problems made it for you to do your work, take care of things at home, or get along with other people?: Somewhat difficult Total Score: 2 SAMI-Q SV Test Statements CAD is a disease of the arteries in the heart: False Examples of risk factors for heart disease: True Angina is chest pain or discomfort: True The benefits of resistance training include: True Eating more meat and dairy products: False Anti-platelet medications such as aspirin are important: True The only effective way to manage stress: True An exercise warm-up slowly increases heart rate: True Prepared, processed foods usually have high sodium: True Depression is common after a heart attack: True The statin medications lower cholesterol: True To control blood pressure, lower the amount of sodium: False If someone gets chest discomfort during walking: False Transfats are partially hydrogenated vegetable oils: True Sleep apnea that is not treated increases the risk: False To control cholesterol, one should become a vegetarian: False Someone knows if he/she is exercising at the right level: False Diabetes cannot be prevented with exercise & health eating: False Stress is a large risk for heart attack: True A diet that can help lower blood pressure is rich in: True Total Score Total Correct Responses: 17 Self-Efficacy 6-Item Scale Initial Assessment: We would like to know how confident you are in doing certain activities. Please select your confidence level for: Fatigue Select Number: 5 Physical Discomfort or Pain Select Number: 5 Emotional Distress Select Number: 5 Other Symptoms or Health Problems Select Number: 6 Different Tasks and Activities Select Number: 5 Medication Select Number: 6 Total Score:: 5 Nutrition Survey Nutrition Survey Instructions Scoring Instructions Nutrition Survey Initial: Have you lost >10 lbs over the past 2 months without trying?: No Are you following a special diet at home for diabetes, low fat, or low salt?: No Are you interested in meeting with a dietitian for help understanding your diet?: No Do you eat less than 3 meals a day?: No Do you eat fatty meats (craig, sausage, ribs, etc), fried foods, desserts, large amounts of salad dressings, margarine, butter, or cheese most days?: No Do you have food allergies? [Enter types in comment field]: No Do you eat in restaurants more than 3 times a week?: No Do you season food with salt, seasoning salt, or garlic salt?: No Do you used canned, boxed, frozen meals, or soups, seasoning packets?: Yes Total Score:: 1 Exercise - Final/Discharge Physician Prescribed Exercise Modalities: Treadmill, Rower, Airdyne, NuStep, SciFit and Lateral [place] Frequency: 3x/week for 12 weeks [36 sessions] Intensity: 60-80% of age predicted maximum heart rate reserve Current METSs:: 3 Nutrition - 30-Day Assessment Weight Mgt (Other Care) Height: 4 ft 10 in Weight:: 157 lb BMI: 32.8 Nutrition - 60-Day Assessment Weight Mgt (Other Care) Height: 4 ft 10 in Weight:: 157 lb BMI: 32.8 Core - Final Assessment Hypertension Resting Blood Pressure:: 125/74 [place] [employer] Hypertension Guidelines Core - 60-Day Assessment Hypertension Resting Blood Pressure:: 125/74 [place] [employer] Hypertension Guidelines Psychosocial - 30-Day Assess Target Goals Target Goals Psychosocial - 60-Day Assess Target Goals Target Goals Psychosocial - 90-Day Assess Target Goals Target Goals Psychosocial - Final Assessmen Target Goals Target Goals Nutrition - 90-Day Assessment Weight Mgt (Other Care) Height: 4 ft 10 in Weight:: 157 lb BMI: 32.8 Nutrition - Final Assessment Program Goals Patient has diagnosis of Hyperlipidemia (ICD E78)?: No Weight Mgt (Other Care) Height: 4 ft 10 in Weight:: 157 lb BMI: 32.8
[2024-01-02 13:16] VITALS: BP 125/74
--- OUTSIDE RECORDS SUMMARY | 2024-01-02 13:19 | XMS RPT_ITS | CCD ---
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 or drug abuse patient.[facility] the event this information is protected by the Federal Confidentiality of Alcohol and Drug Abuse Patient Records regulations: The Federal rules restrict any use of the information to criminally investigate or prosecute any alcohol or drug abuse patient.[facility] the event this information is protected by the Federal Confidentiality of Alcohol and Drug Abuse Patient Records regulations: The Federal rules restrict any use of the information to criminally investigate or prosecute any alcohol or drug abuse patient.[facility] the event this information is protected by the Federal Confidentiality of Alcohol and Drug Abuse Patient Records regulations: The Federal rules restrict any use of the information to criminally investigate or prosecute any alcohol or drug abuse patient.[facility] the event this information is protected by the Federal Confidentiality of Alcohol and Drug Abuse Patient Records regulations: The Federal rules restrict any use of the information to criminally investigate or prosecute any alcohol or drug abuse patient.[facility] the event this information is protected by the Federal Confidentiality of Alcohol and Drug Abuse Patient Records regulations: The Federal rules restrict any use of the information to criminally investigate or prosecute any alcohol or drug abuse patient.[facility] the event this information is protected by the Federal Confidentiality of Alcohol and Drug Abuse Patient Records regulations: The Federal rules restrict any use of the information to criminally investigate or prosecute any alcohol or drug abuse patient.[facility] the event this information is protected by the Federal Confidentiality of Alcohol and Drug Abuse Patient Records regulations: The Federal rules restrict any use of the information to criminally investigate or prosecute any alcohol or drug abuse patient.[facility] the event this information is protected by the Federal Confidentiality of Alcohol and Drug Abuse Patient Records regulations: The Federal rules restrict any use of the information to criminally investigate or prosecute any alcohol or drug abuse patient.[facility] the event this information is protected by the Federal Confidentiality of Alcohol and Drug Abuse Patient Records regulations: The Federal rules restrict any use of the information to criminally investigate or prosecute any alcohol or drug abuse patient.[facility] the event this information is protected by the Federal Confidentiality of Alcohol and Drug Abuse Patient Records regulations: The Federal rules restrict any use of the information to criminally investigate or prosecute any alcohol or drug abuse patient.[facility] the event this information is protected by the Federal Confidentiality of Alcohol and Drug Abuse Patient Records regulations: The Federal rules restrict any use of the information to criminally investigate or prosecute any alcohol or drug abuse patient.[facility] the event this information is protected by the Federal Confidentiality of Alcohol and Drug Abuse Patient Records regulations: The Federal rules restrict any use of the information to criminally investigate or prosecute any alcohol or drug abuse patient.[facility] the event this information is protected by the Federal Confidentiality of Alcohol and Drug Abuse Patient Records regulations: The Federal rules restrict any use of the information to criminally investigate or prosecute any alcohol or drug abuse patient.[facility] the event this information is protected by the Federal Confidentiality of Alcohol and Drug Abuse Patient Records regulations: The Federal rules restrict any use of the information to criminally investigate or prosecute any alcohol or drug abuse patient.[facility] the event this information is protected by the Federal Confidentiality of Alcohol and Drug Abuse Patient Records regulations: The Federal rules restrict any use of the information to criminally investigate or prosecute any alcohol or drug abuse patient.[facility] the event this information is protected by the Federal Confidentiality of Alcohol and Drug Abuse Patient Records regulations: The Federal rules restrict any use of the information to criminally investigate or prosecute any alcohol or drug abuse patient.[facility] Reason for Visit (unrecogniz ed section and content) Reason Comments Urinary Frequency x 1 week Reason Comments Results Reason Comments UTI UC 4/2, not taking t he cipro, not helping sx Nausea Reason Comments Urinary Urgency Loss of urine, denie d pain, burning with urination Cough Reason Comments Outside Lab Results Reason Comments F/U 6 Month Reason Onset Date Comments Refill Request 04/26/2022 Reason Onset Date Comments Refill Request 05/30/2022 Reason Onset Date Comments Refill Request 08/22/2022 Reason Onset Date Comments Refill Request 09/04/2022 Reason Onset Date Comments Refill Request 10/24/2022 Reason Comments F/U 6 months Reason Onset Date Comments Refill Request 02/09/2023 Reason Onset Date Comments Refill Request 04/16/2023 Reason Onset Date Comments Refill Request 04/18/2023 Reason Onset Date Comments Refill Request 04/29/2023 Reason Comments Follow Up Reason Onset Date Comments Refill Request 10/04/2023 Reason Onset Date Comments Refill Request 10/10/2023 Reason Comments Refill Request Reason Onset Date Comments Refill Request 10/24/2023 Reason Comments F/U 6 months Transition Of Care [facility] F/U 11/05/23 - 1 01/07/23 Care Teams (unrecognized sec tion and content) 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 [employer] Relationship Specialty Start Date End Date Amrik Gutierrez MD [address] [place] [address] PCP - General 11/22/02 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 [employer] Relationship Specialty Start Date End Date Amrik Gutierrez MD [address] [place] [address] PCP - General 11/22/02 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 [employer] Relationship Specialty Start Date End Date Amrik Gutierrez MD [address] [place] [address] PCP - General 11/22/02 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 [employer] Relationship Specialty Start Date End Date Amrik Gutierrez MD [address] [place] [address] PCP - General 11/22/02 Repairer [employer] Relationship Specialty Start Date End Date Amrik Gutierrez MD [address] [place] [address] PCP - General 11/22/02 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 [employer] Relationship Specialty Start Date End Date Amrik Gutierrez MD [address] [place] [address], [place] [address] PCP - General 11/22/02 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 [employer] Relationship Specialty Start Date End Date Amrik Gutierrez MD [address] [place] [address], [place] [address] PCP - General 11/22/02 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 [employer] Relationship Specialty Start Date End Date Amrik Gutierrez MD [address] [place] [address], [place] [address] PCP - General 11/22/02 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 [employer] Relationship Specialty Start Date End Date Amrik Gutierrez MD [address] [place] [address], [place] [address] PCP - General 11/22/02 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 [employer] Relationship Specialty Start Date End Date Amrik Gutierrez MD [address] [place] [address], [place] [address] PCP - General 11/22/02 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 [employer] Relationship Specialty Start Date End Date Amrik Gutierrez MD [address] [place] [address], [place] [address] PCP - General 11/22/02 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 [employer] Relationship Specialty Start Date End Date Amrik Gutierrez MD [address] [place] [address], [place] [address] PCP - General 11/22/02 Repairer [employer] Relationship Specialty Start Date End Date Amrik Gutierrez MD [address] [place] [address], [place] [address] PCP - General 11/22/02 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 [employer] Relationship Specialty Start Date End Date Amrik Gutierrez MD [address] [place] [address] PCP - General 11/22/02 Repairer [employer] Relationship Specialty Start Date End Date Amrik Gutierrez MD [address] [place] [address] PCP - General 11/22/02 Repairer [employer] Relationship Specialty Start Date End Date Amrik Gutierrez MD [address] [place] [address] PCP - General 11/22/02 Repairer [employer] Relationship Specialty Start Date End Date Amrik Gutierrez MD [address] [place] [address] PCP - General 11/22/02 Repairer [employer] Relationship Specialty Start Date End Date Amrik Gutierrez MD [address] [place] [address] PCP - General 11/22/02 INFORMATION SOURCE (unrecogn ized section and content) FOR RECORDS PERTAINING TO PATIENTS WHO ARE OR HAVE BEEN ENROLLED IN A CHEMICAL DEPENDENCY/SUBSTANCEABUSE PROGRAM, SOME INFORMATION MAY BE OMITTED. This clinical summary was aggregated from multiple sources. Caution should be exercised in using it in the provision of clinical care. This summary normalizes information from multiple sources, and as a consequence, information in this document may materially change the coding, format and clinical context of patient data. In addition, data may be omitted in some cases. CLINICAL DECISIONS SHOULD BE BASED ON THE PRIMARY CLINICAL RECORDS. [facility] [employer] [facility]. provides no warranty or guarantee of the accuracy or completeness of information in this document.
[2024-01-02 14:04] VITALS: BMI 32.8
[2024-01-02 14:07] VITALS: BMI 32.8
== END | disposition home or self-care (01) ==
LOC: CR 12:51
PROVIDERS: PCP Internal Medicine; Referring Provider Internal Medicine Cardiovascular Disease; Visit Provider Internal Medicine Cardiovascular Disease
DX: Z95.5 Presence of coronary angioplasty implant and graft (principal)

== ENCOUNTER 2024-01-11 10:15 | Outpatient (RCR) | payer MEDICARE, OTHER, SELFPAY ==
[2024-01-02 14:04] VITALS: BMI 32.8
== END 2024-01-12 23:59 ==
LOC: CR 10:15
PROVIDERS: PCP Internal Medicine; Referring Provider Internal Medicine Cardiovascular Disease; Visit Provider Internal Medicine Cardiovascular Disease
DX: Z95.5 Presence of coronary angioplasty implant and graft (principal); I25.10 Atherosclerotic heart disease of native coronary artery without angina pectoris
CPT/HCPCS: 93798

== ENCOUNTER 2024-01-27 10:15 | Outpatient (RCR) | payer MEDICARE, OTHER, SELFPAY ==
[2024-01-02 14:04] VITALS: BMI 32.8
--- NOTE | 2024-01-30 09:26 | PCM.CR.ITP ---
Exercise - Initial Assessment Visit Comments:: Hollie gutierres decided to stop her cardiac rehab Psychosocial - Initial Assess Target Goals Target Goals Nutrition Survey Nutrition Survey Instructions Scoring Instructions Exercise - 30-day Assessment Visit Date of Eval: 01/30/24 Comments:: Hollie gutierres decided to stop her cardiac rehab Psychosocial - 30-Day Assess Target Goals Target Goals Psychosocial - 60-Day Assess Target Goals Target Goals Psychosocial - 90-Day Assess Target Goals Target Goals Psychosocial - Final Assessmen Target Goals Target Goals
== END 2024-02-12 23:59 ==
LOC: CR 10:15
PROVIDERS: PCP Internal Medicine; Referring Provider Internal Medicine Cardiovascular Disease; Visit Provider Internal Medicine Cardiovascular Disease
DX: Z95.5 Presence of coronary angioplasty implant and graft (principal); I25.10 Atherosclerotic heart disease of native coronary artery without angina pectoris
CPT/HCPCS: 93798

== ENCOUNTER 2024-01-27 13:35 | Emergency (ER) | payer MEDICARE, OTHER, SELFPAY ==
[2024-01-02 14:04] VITALS: BMI 32.8
[2024-01-27] VITALS (7 sets, daily range): BP systolic 138–151; BP diastolic 73–85; PULSE 75–100; RESP 18–24; TEMP 35.9–36.7; O2SAT 95–100; BMI 32.6
[2024-01-27 14:32] LABS: Absolute Lymphocyte Count 0.99 X10^3/uL (0.83-4.51); Absolute Neutrophil Count 3.5 X10^3/uL (2.0-7.7); Basophil# 0.06 X10^3/uL; Basophil% 1.1 % (0-1); Eosinophil# 0.07 X10^3/uL; Eosinophils% 1.3 % (0-5); Hematocrit 45.6 % (37-47); Hemoglobin 15.1 g/dL (12.0-15.0); Lymphocyte # 0.99 X10^3/ul (0.83-4.51); Lymphocyte % 18.7 % (19-41); Mean Corp Hgb Conc 33.1 g/dL (32-36); Mean Corpuscular Hgb 28.7 pg (27.0-32.0); Mean Corpuscular Volume 86.5 fL (81-99); Mean Platelet Vol. 10.3 fl (6.2-12.0); Monocyte# 0.72 X10^3/uL; Monocyte% 13.6 % (0-10); NRBC Flagged by Analyzer 0 % (0-5); Neutrophil # 3.45 X10^3/uL (2.7-7.7); Neutrophil % 65.1 % (47-70); Platelet Count 242 K/mm3 (150-450); RBC Distribution Width CV 13.7 % (11.6-14.6); RBC Distribution Width SD 43.7 fl (35.1-43.9); Red Blood Count 5.27 M/mm3 (4.2-5.4); White Blood Count 5.3 K/mm3 (4.4-11.0)
--- NOTE | 2024-01-27 14:48 | RAD_ITS ---
STUDY: X-RAY CHEST REASON FOR EXAM: Female, 83 years old. chest pain TECHNIQUE: Single AP portable view of the chest. COMPARISON: 11/05/2023 FINDINGS: Lungs are expanded, with persistent opacifications in the right lower lung field unchanged in the previous study which I suspect are chronic. No new infiltrate or effusion. Lung cisse show no significant change since the previous study. Evidence of previous left axillary dissection Normal size heart. Normal mediastinum and amy. Normal visualized pulmonary arteries. Normal visualized aortic arch and descending thoracic aorta. Normal visualized thoracic spine. Normal visualized ribs, clavicles, and shoulders. There is no demonstrated abnormality of the visualized soft tissue structures of the upper abdomen. RAD/Chest 1 View (Portable) IMPRESSION: No interval change Electronically Signed: Gavin Jones MD at 15:15 EDT ,
[2024-01-27 15:02] LABS: Anion Gap 7 (5-15); BUN 20 mg/dL (7-18); BUN/Creat Ratio 18.2 RATIO (10-20); Calcium,Total 9.2 mg/dL (8.5-10.1); Chloride 104 mmol/L (98-107); EST Glomerular Filtration Rate 51 mL/min (>60); Est Glom Filt Rate - Afr Amer 61 mL/min (>60); Glucose 106 mg/dL (74-106); Potassium 3.9 mmol/L (3.5-5.1); Sodium Level 138 mmol/L (136-145); Troponin-I HS (w/2H Reflex) 28 pg/mL (3.0-54.0)
--- NOTE | 2024-01-27 15:44 | EDS_ITS ---
HPI History of Present Illness Chief Complaint: Chest Other Detail of Chief Complaint: Right scapular pain and tingling right upper extremity Informant: patient and family Onset/Context/Timing Onset: Today and Hours (Onset 11 AM, question accuracy, detailed HPI) Context: Sudden Onset Timing: Continuous Quality: Right scapular upper back pain and right upper extremity tingling Location: Right side Current Severity: Mild Maximum Severity: Mild Worsened by: Nothing Relieved by: Nothing Associated Symptoms Associated Symptoms: Nothing Narrative Narrative: Patient is a 83-year-old woman who states she developed a rapid heartbeat at cardiac rehab. Even though her heart rate was rapid she states she still performed the activity. The nurse at cardiac rehab was contacted. Patient's heart rate was 20 beats above baseline. It was not rapid. It was within normal range. Heart rate went as high as 108 with activity. The nurse from cardiac rehab said she is an anxious patient and possibly based on what she told her she may have made her anxious. Patient states when she had her [place] in October she had chest pain, low back pain, buttocks pain, and teeth pain. She also had pain in the right shoulder region. She had 2 stents placed at that time. Will review prior records to confirm what her symptoms were. Patient denies radiation of the discomfort, dyspnea, dyspnea on exertion, nausea or vomiting or diaphoresis. She has no other symptoms. She denies fever, chills night sweats. She denies ocular, visual auditory symptoms. She has trouble with speech or swallowing. She denies weakness in her upper or lower extremities. She denies problems with coordination or balance. Prior similar symptoms: No Recent Illness/Hospitalization: Yes [facility] Medical History Anxiety and depression Breast cancer CAD (coronary artery disease) Hypertension Home Medications alprazolam 0.25 mg tablet 0.125 - 0.25 mg PO BID PRN Anxiety 10/14/15 [History Last Taken 01/21/24] amlodipine 5 mg tablet 5 mg PO DAILY blood prssure 10/14/15 [History Last Taken 01/27/24] timolol maleate 0.5 % eye drops 1 drp BID glaucoma 10/14/15 [History Last Taken 01/27/24] ergocalciferol (vitamin D2) 1,250 mcg (50,000 unit) capsule (Vitamin D2) 50,000 unit PO UD supplement 01/26/16 [History Last Taken 01/22/24] fluticasone furoate 200 mcg-vilanterol 25 mcg/dose inhalation powder (Breo Ellipta) 1 puff inhalation DAILY lungs 11/03/18 [History Last Taken 01/27/24] omeprazole 40 mg capsule,delayed release 40 mg PO DAILY gerd 11/03/18 [History Last Taken 01/27/24] penicillin V potassium 500 mg tablet 500 mg PO DAILY prophylaxis 09/12/20 [History Last Taken 01/27/24] venlafaxine 150 mg capsule,extended release 24 hr 150 mg PO DAILY depression 09/12/20 [History Last Taken 01/27/24] albuterol sulfate 90 mcg/actuation aerosol inhaler 2 inh inhalation Q4H PRN Wheezing 08/31/22 [History Last Taken 08/30/22] fexofenadine 180 mg tablet 180 mg PO DAILY allergies 08/31/22 [History Last Taken 01/27/24] fluticasone propionate 50 mcg/actuation nasal spray,suspension 2 spray intranasal DAILY PRN allergies 08/31/22 [History Last Taken 2 Days Ago ~08/29/22] aspirin 81 mg chewable tablet 81 mg PO DAILYCM #0 tabs 11/06/23 [Rx Last Taken 01/27/24] nitroglycerin 0.4 mg sublingual tablet 0.4 mg sublingual Q5M PRN Chest pain #10 tabs 11/06/23 [Rx Last Taken Unknown] atorvastatin 40 mg tablet 40 mg PO QHS #90 tabs 12/09/23 [Rx Last Taken 01/26/24] clopidogrel 75 mg tablet 75 mg PO DAILY #90 tabs 12/09/23 [Rx Last Taken 01/27/24] isosorbide mononitrate 30 mg tablet,extended release 24 hr 30 mg PO DAILY #30 tabs 12/09/23 [Rx Last Taken 01/27/24] metoprolol tartrate 25 mg tablet 25 mg PO BID #180 tabs 12/09/23 [Rx Last Taken 01/27/24] Allergy/AdvReac Type Severity Reaction Status Date / Time hydrogen peroxide AdvReac Other Verified 01/27/24 13:38 oxycodone HCl [From Percodan] AdvReac Nausea Verified 01/27/24 13:38 oxycodone terephthalate AdvReac Nausea Verified 01/27/24 13:38 [From Percodan] Sulfa (Sulfonamide AdvReac Nausea/Vom/ Verified 01/27/24 13:38 Antibiotics) Diarrhea Surgical History H/O: hysterectomy Hx of appendectomy Hx of cholecystectomy Hx of mastectomy Hx of tonsillectomy Stented coronary artery (~11/05/23) Social History (Reviewed 12/09/23 @ 10:42 by Renata Holland [employer], [employer]) Smoking Status: Never smoker ROS ROS ED Constitutional Constitutional ED: Denies chills, fever(s), subjective or sweats Eyes Eyes: Denies blurry vision, change in vision or diplopia ENT ENT ED: Denies ear pain, rhinorrhea or sore throat Cardiovascular Cardiovascular: Denies chest pain, orthopnea, palpitations, paroxysmal nocturnal dyspnea or racing heartbeat Respiratory/Chest Respiratory/Chest: Denies cough, dyspnea, dyspnea on exertion, orthopnea or paroxysmal nocturnal dyspnea Gastrointestinal Gastrointestinal: Denies abdominal pain, melena, nausea or vomiting Genitourinary Genitourinary ED: Denies dysuria, hematuria or urinary frequency Musculoskeletal Musculoskeletal: Reports back pain; Denies arthralgias, myalgias or neck pain Integumentary Denies rash Neurologic Neurologic: Denies headache(s), paresthesias or weakness Psychiatric Psychiatric: Reports anxiety Endocrine Endocrinology: Denies cold intolerance or heat intolerance Hematologic/Lymphatic Hematologic/Lymphatic: Reports systems reviewed and no addt'l complaints, except as documented EXAM Physical Exam Const Vital Signs: 01/27/24 13:37 01/27/24 15:12 01/27/24 16:10 Temperature 96.6 F L Temperature Source Temporal Pulse Rate 78 83 75 Respiratory Rate 18 20 H 24 H Blood Pressure 147/82 H 138/83 H 151/73 H Blood Pressure Mean 103 101 99 Pulse Ox 100 96 95 Oxygen Delivery Method Room Air Room Air Room Air 01/27/24 16:53 01/27/24 18:10 01/27/24 21:31 Temperature 98.1 F 96.6 F L Temperature Source Oral Temporal Pulse Rate 76 100 Respiratory Rate 18 18 Blood Pressure 142/85 H 145/80 H 138/81 H Blood Pressure Mean 104 101 100 Pulse Ox 95 95 Oxygen Delivery Method Room Air Room Air Positive well nourished, well developed and obese General Appearance ED: well developed and NAD; Negative for cyanotic, diaphoretic or pallor Nutritional Appearance: obese HEENT Reports moist mucous membranes HEENT Narrative: Head is atraumatic and normocephalic. Ears are normal. Nares patent. Posterior pharynx is normal. Eyes PERRL and EOMs intact bilaterally General Eye ED: Negative for pale conjunctiva or scleral icterus Neck no lymphadenopathy, supple and no JVD Chest Wall inspection of chest normal and palpation of chest normal Resp normal respiratory effort and clear to auscultation bilaterally Cardio regular rate, regular rhythm, S1 normal heart sound, S2 normal heart sound and no murmurs GI normal to inspection, nondistended, normoactive bowel sounds, non-tender, non- distended and no masses; Negative for hepatosplenomegaly GI Narrative: There is no abdominal bruit or pulsatile mass. Auscultation: hypoactive bowel sounds Palpation: Negative for mass or rebound tenderness present Back/Spine no CVA tenderness Thoracic Spine / Upper Back: Negative for thoracic spinal tenderness Lumbar Spine / Lower Back: Negative for lumbar spinal tenderness Extremity normal to inspection Neuro oriented x3, CN's II-XII intact bilaterally and no sensory deficits noted Neuro Narrative: Sensation is normal and there is no difference tween right and left. There is no clonus or Babinski sign. There is no axillary, median, radial or ulnar dysfunction right or left upper extremity. Radial pulses palpable and symme tric. There is no dysmetria. Sensorium / Orientation: alert Motor Exam: strength 5/5 throughout Psych mental status grossly normal Skin no rashes or lesions noted, no wounds and skin turgor normal General Skin Exam: Negative for jaundice or pallor MDM MDM MDM Narrative Medical decision making narrative: Cardiac order set was initiated by nurse protocol. Differential diagnosis is anxiety, musculoskeletal pain, atypical cardiac pain, pneumonia, diaphragmatic irritation History & Record Review Discussion w/independent historian: Patient and Family Additional record(s) reviewed:: Prior outpatient record, Prior ED visit and Prior labs Lab Data Attestation: I reviewed the patient's lab results. Lab results narrative: CBC is unremarkable. Basic metabolic panel reveals slight elevation of creatinine to 1.10 with an estimated GFR 51. First troponin is normal at 28. Labs: Laboratory Results - last 24 hr 03/15/24 03/15/24 14:20 16:54 WBC 5.3 RBC 5.27 Hgb 15.1 H Hct 45.6 MCV 86.5 MCH 28.7 MCHC 33.1 RDW Std Deviation 43.7 RDW Coeff of Henry 13.7 Plt Count 242 MPV 10.3 Immature Gran % (Auto) 0.200 Neut % (Auto) 65.1 Lymph % (Auto) 18.7 L Nobles % (Auto) 13.6 H Eos % (Auto) 1.3 Baso % (Auto) 1.1 H Absolute Neuts (auto) 3.5 Absolute Lymphs (auto) 0.99 Nucleated RBC % 0 Sodium 138 Potassium 3.9 Chloride 104 Carbon Dioxide 27.0 Anion Gap 7 BUN 20 H Creatinine 1.10 H Est GFR (MDRD) Af Amer 61 Est GFR (MDRD) Non-Af 51 L BUN/Creatinine Ratio 18.2 Glucose 106 Calcium 9.2 Troponin I High Sens 28 24 Patient's first and second troponin were normal. There was an error in recording of her troponin which led to delay. Radiography Chest X-Ray - ED: 1 View and Read by ED Physician (Dependent reviewed i nterpreted by me as negative at 1500. Patient's cardiac silhouette and size normal. She is slightly rotated. There is some minimal chronic lung parenchymal changes. Perihilar region is normal. Osseous structures reveal no acute process.) Diagnostic Testing: Clinical Impression(s) from Imaging Studies Chest X-Ray 01/27/24 14:48 IMPRESSION: No interval change Electronically Signed: Gavin Jones MD at 15:15 EDT , EKG Initial EKG: Attestation: I personally reviewed and interpreted this EKG as follows: Interpretation: Sinus Rhythm (Rate is 80. AK interval is 162 ms per cures duration 82 ms. QT is 392 ms. [place] is to the left. 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 The EKG is unchanged from November 06, 2023.) Treatment and Re-Evaluation :: Patient was informed that her cardiac markers are normal. With 2 normal high- sensitivity troponins and delta less than 4 patient was discharged home. Suspect this has an anxiety component. Discharge Plan Triage Chief Complaint: Chest Other ED Provider: Hector Feldman Dx/Rx/DC Orders Clinical Impression: Periscapular pain of right shoulder, Stented coronary artery, CAD (coronary artery disease), History of anxiety Instructions: ED Pain, Acute, Uncertain Cause Prescriptions: No Action clopidogrel 75 mg tablet 75 mg PO DAILY Qty: 90 3RF atorvastatin 40 mg tablet 40 mg PO QHS Qty: 90 3RF metoprolol tartrate 25 mg tablet 25 mg PO BID Qty: 180 3RF isosorbide mononitrate 30 mg tablet extended release 24 hr 30 mg PO DAILY Qty: 30 11RF amlodipine 5 MG tablet 5 mg PO DAILY timolol maleate 1 DROP drops 1 drp Each Eye BID alprazolam 0.25 MG tablet 0.125 - 0.25 mg PO BID PRN (Reason: Anxiety) ergocalciferol (vitamin D2) [Vitamin D2] 50,000 UNIT capsule 50,000 unit PO UD Patient Comments: TAKES EVERY OTHER WEEK ON TUESDAY Rx Instructions: every other week ON TUESDAY omeprazole 40 MG capsule,delayed release(DR/EC) 40 mg PO DAILY fluticasone furoate-vilanterol [Breo Ellipta] 1 EACH blister with device 1 puff inhalation DAILY Patient Comments: inhale 1 puff once daily, use with good oral care venlafaxine 150 MG capsule,extended release 24hr 150 mg PO DAILY penicillin V potassium 500 MG tablet 500 mg PO DAILY fexofenadine 180 mg tablet 180 mg PO DAILY albuterol sulfate 90 mcg/actuation HFA aerosol inhaler 2 inh INHALATION Q4H PRN (Reason: Wheezing) Patient Comments: inhale 2 puffs by mouth every 4 hours if needed for wheezing or shortness of breath fluticasone propionate 50 mcg/actuation spray,suspension 2 spray INTRANASAL DAILY PRN (Reason: allergies) Patient Comments: instill 2 sprays into each nostril once daily nitroglycerin 0.4 mg Tablet, Sublingual 0.4 mg sublingual Q5M PRN (Reason: Chest pain) Qty: 10 0RF aspirin 81 mg Tablet,Chewable 81 mg PO DAILYCM Qty: 0 0RF Primary Care Provider: Kristal Gutierrez Referrals: Kristal Gutierrez MD [Primary Care Provider] - 3-5 Days if not improving Disposition Disposition: Home, Self Care
[2024-01-27 16:30] LABS: Reflex Troponin-HS? (from REC) Y
[2024-01-27 17:24] LABS: Troponin-I HS 24 pg/mL (3.0-54.0)
--- OUTSIDE RECORDS SUMMARY | 2024-01-27 19:22 | XMS RPT_ITS | CCD ---
Author Name Unknown Address [address] [place] [address] Organization [facility] Care Team Providers Care Education General Manager Name Role Phone Amrik Gutierrez MD Primary Care Provider AMRIK GUTIERREZ Attending Unavailable AMRIK GUTIERREZ Primary Care Unavailable AMRIK GUTIERREZ Referring Unavailable AMRIK GUTIERREZ Primary Care Unavailable MIRYAM SANCHEZ Attending Unavailable AMRIK GUTIERREZ Primary Care Unavailable Amrik Gutierrez MD Primary Care Provider Allergies Allergy Classification Reported Allergen(s) Allergy Type Date of Onset Reaction(s) Facility (20 sources) Amoxicillin; Translations: [AMOXICILLIN] Drug Allergy 5 GI Upset [facility] Work Phone: (20 sources) Aspirin / oxyCODONE; Translations: [OXYCODONE-ASPIRI N] Drug Allergy 5 Unknown [facility] Work Phone: (20 sources) Bacitracin / Polymyxin B; Translations: [BACITRACIN-POLYM YXIN B] Drug Allergy 5 [facility] Work Phone: (20 sources) NITROFURANTOIN, MACROCRYSTALS / Nitrofurantoin, Monohydrate; Translations: [NITROFURANTOIN MONOHYD/M-CRYST] Drug Allergy 2 Diarrhea [facility] Work Phone: (20 sources) Sulfonamides (Antibiotic); Translations: [SULFA (SULFONAMIDE ANTIBIOTICS)] Propensity to adverse reactions 5 [facility] Work Phone: (20 sources) mentadent toothpaste [Other] Propensity to adverse reactions 5 [facility] Work Phone: (1 source) OTHER; Translations: [OTHER] Propensity to adverse reactions (disorder) 5 [facility] Repository Medications Current Medications Medication Drug Class(es) [...] Coronary arteriosclerosis; Translations: [Atherosclerotic heart disease of [place] coronary artery without angina pectoris] 12-15-2023 Chronic [...] (2 sources) Patient encounter status; Translations: [Other skilled nursing (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 therapy] Episodic Other congenital anomalies [...] 03-12-2008 Episodic Other aftercare (1 source) Other 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 (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 therapy; Translations: [Encounter for long-term [...] Date Time Vital Sign Value Performing Clinician Faci lity 11-16-2023 10:28-0500 Body temperature 96.01 [degF] Amrik Gutierrez MD Work Phone: [facility] 11-16-2023 10:28-0500 Body weight 70.76 kg mArik Gutierrez MD Work Phone: [facility] 11-16-2023 10:28-0500 Diastolic blood pressure 76 mm[Hg] Amrik Gutierrez MD Work Phone: [facility] 11-16-2023 10:28-0500 Heart rate 63 /min Amrik Gutierrez MD Work Phone: [facility] 11-16-2023 10:28-0500 Respiratory rate 18 /min Amrik Gutierrez MD Work Phone: [facility] 11-16-2023 10:28-0500 SaO2% (BldA) [Mass fraction] 96 % Amrik Gutierrez MD Work Phone: [facility] 11-16-2023 10:28-0500 Systolic blood pressure 118 mm[Hg] Amrik Gutierrez MD Work Phone: [facility] 05-16-2023 10:54-0400 Body height 149.9 cm Miryam Laura PUMP PRESS OPERATOR.TOOTH INSPECTOR Work Phone: [facility] 05-16-2023 10:54-0400 Body weight 72.03 kg Miryam Laura PUMP PRESS OPERATOR.TOOTH INSPECTOR Work Phone: [facility] 05-16-2023 10:54-0400 Diastolic blood pressure 70 mm[Hg] Miryam Laura PUMP PRESS OPERATOR.TOOTH INSPECTOR Work Phone: [facility] 05-16-2023 10:54-0400 Heart rate 70 /min Miryam Laura PUMP PRESS OPERATOR.TOOTH INSPECTOR Work Phone: [facility] 05-16-2023 10:54-0400 Respiratory rate 16 /min Miryam Laura PUMP PRESS OPERATOR.TOOTH INSPECTOR Work Phone: [facility] 05-16-2023 10:54-0400 Systolic blood pressure 120 mm[Hg] Miryam Laura PUMP PRESS OPERATOR.TOOTH INSPECTOR Work Phone: [facility] 11-16-2022 09:52-0500 Body temperature 98.29 [degF] Amrik Gutierrez MD Work Phone: [facility] 11-16-2022 09:52-0500 Body weight 73.03 kg Amrik Gutierrez MD Work Phone: [facility] 11-16-2022 09:52-0500 Diastolic blood pressure 78 mm[Hg] Amrik Gutierrez MD Work Phone: [facility] 11-16-2022 09:52-0500 Heart rate 71 /min Amrik Gutierrez MD Work Phone: [facility] 11-16-2022 09:52-0500 Respiratory rate 18 /min Amrik Gutierrez MD Work Phone: [facility] 11-16-2022 09:52-0500 SaO2% (BldA) [Mass fraction] 96 % Amrik Gutierrez MD Work Phone: [facility] 11-16-2022 09:52-0500 Systolic blood pressure 136 mm[Hg] Amrik Gutierrez MD Work Phone: [facility] 03-08-2022 09:49-0400 Body weight 70.31 kg Neida Martinez PUMP PRESS OPERATOR.FIELD BROOMER Work Phone: [facility] 03-08-2022 09:49-0400 Diastolic blood pressure 80 mm[Hg] Neida Martinez PUMP PRESS OPERATOR.FIELD BROOMER Work Phone: [facility] 03-08-2022 09:49-0400 Heart rate 84 /min Neida Martinez PUMP PRESS OPERATOR.FIELD BROOMER Work Phone: [facility] 03-08-2022 09:49-0400 Respiratory rate 16 /min Neida Martinez PUMP PRESS OPERATOR.FIELD BROOMER Work Phone: [facility] 03-08-2022 09:49-0400 Systolic blood pressure 138 mm[Hg] Neida Martinez PUMP PRESS OPERATOR.FIELD BROOMER Work Phone: [facility] 02-19-2022 09:42-0400 Body temperature 97.2 [degF] Teri Dany PUMP PRESS OPERATOR.TOOTH INSPECTOR Work Phone: [facility] 02-19-2022 09:42-0400 Body weight 73.3 kg Teri Dany PUMP PRESS OPERATOR.TOOTH INSPECTOR Work Phone: [facility] 02-19-2022 09:42-0400 Diastolic blood pressure 88 mm[Hg] Teri Dany PUMP PRESS OPERATOR.TOOTH INSPECTOR Work Phone: [facility] 02-19-2022 09:42-0400 Heart rate 88 /min Teri Dany PUMP PRESS OPERATOR.TOOTH INSPECTOR Work Phone: [facility] 02-19-2022 09:42-0400 Respiratory rate 18 /min Teri Dany PUMP PRESS OPERATOR.TOOTH INSPECTOR Work Phone: [facility] 02-19-2022 09:42-0400 SaO2% (BldA) [Mass fraction] 95 % Teri Dany PUMP PRESS OPERATOR.TOOTH INSPECTOR Work Phone: [facility] 02-19-2022 09:42-0400 Systolic blood pressure 136 mm[Hg] Teri Dany PUMP PRESS OPERATOR.TOOTH INSPECTOR Work Phone: [facility] 02-15-2022 09:06-0400 Body weight 71.67 kg Quyen Older PUMP PRESS OPERATOR.TOOTH INSPECTOR Work Phone: [facility] 02-15-2022 09:06-0400 Diastolic blood pressure 86 mm[Hg] Quyen Older PUMP PRESS OPERATOR.TOOTH INSPECTOR Work Phone: [facility] 02-15-2022 09:06-0400 Heart rate 70 /min Quyen Older PUMP PRESS OPERATOR.TOOTH INSPECTOR Work Phone: [facility] 02-15-2022 09:06-0400 Respiratory rate 16 /min Quyen Older PUMP PRESS OPERATOR.TOOTH INSPECTOR Work Phone: [facility] 02-15-2022 09:06-0400 SaO2% (BldA) [Mass fraction] 94 % Quyen Older PUMP PRESS OPERATOR.TOOTH INSPECTOR Work Phone: [facility] 02-15-2022 09:06-0400 Systolic blood pressure 134 mm[Hg] Quyen Older PUMP PRESS OPERATOR.TOOTH INSPECTOR Work Phone: [facility] 02-13-2022 09:56-0400 Body temperature 98.49 [degF] Jessica Praisler-Wood PUMP PRESS OPERATOR.TOOTH INSPECTOR Work Phone: [facility] 02-13-2022 09:56-0400 Body weight 73.03 kg Jessica Praisler-Wood PUMP PRESS OPERATOR.TOOTH INSPECTOR Work Phone: [facility] 02-13-2022 09:56-0400 Diastolic blood pressure 82 mm[Hg] Jessica Praisler-Wood PUMP PRESS OPERATOR.TOOTH INSPECTOR Work Phone: [facility] 02-13-2022 09:56-0400 Heart rate 88 /min Jessica Praisler-Wood PUMP PRESS OPERATOR.TOOTH INSPECTOR Work Phone: [facility] 02-13-2022 09:56-0400 Respiratory rate 18 /min Jessica Praisler-Wood PUMP PRESS OPERATOR.TOOTH INSPECTOR Work Phone: [facility] 02-13-2022 09:56-0400 SaO2% (BldA) [Mass fraction] 96 % Jessica Praisler-Wood PUMP PRESS OPERATOR.TOOTH INSPECTOR Work Phone: [facility] 02-13-2022 09:56-0400 Systolic blood pressure 142 mm[Hg] Jessica Praisler-Wood PUMP PRESS OPERATOR.TOOTH INSPECTOR Work Phone: [facility] Encounters Encounter Date Encounter Type Care Provider Facility Start: 01-24-2024 Refill Miryam MALIK.TOOTH INSPECTOR Work Phone: [facility] Procedures Date [...] Detail Author Start: 06-14-2029 Urine microalbumin profile [facility] Start: 05-18-2026 Diabetes Screening Diabetes Screenin g [facility] Start: 08-25-2025 DIABETES SCREEN DIABETES SCREEN [facility] Start: 02-15-2025 DIABETES SCREEN DIABETES SCREEN [facility] Start: 02-24-2024 DIABETES SCREEN DIABETES SCREEN [facility] Start: 11-14-2023 Advance Directive Discussion Advance Directive Discussion [facility] Start: 07-15-2023 Covid-19 Vaccine () Covid-19 Vaccine () [facility] Start: 07-15-2023 Influenza vaccination C [facility] Start: 05-16-2023 End: 07-16-2023 25-hydroxyvitamin D3 [Mass/volume] in Serum or Plasma VITAMIN D 25 HYDROXY Lab Routine Vitamin D deficiency Expected: 05/16/2023 (Approximate), Expires: 07/16/2023 [facility] Work Phone: Immunizations Immunization Date Immunization Notes Care Provider Fa perry 09-16-2023 respiratory syncytia l virus (RSV) vaccine, bivalent (ABRYSVO) Amrik Gutierrez MD Work Phone: [facility] 07-18-2023 influenza (aIIV4) vaccine, age 65+ yr, quadrivalent, PF (FLUAD QUAD) Amrik Gutierrez MD Work Phone: [facility] 06-28-2022 influenza (aIIV4) vaccine, age 65+ yr, quadrivalent, PF (FLUAD QUADRIVALENT) Amrik Gutierrez MD Work Phone: [facility] 08-15-2022 influenza virus vacc ine, unspecified formulation Amrik Gutierrez MD Work Phone: [facility] 06-05-2022 pneumococcal polysaccharide vaccine, 23 valent Amrik Gutierrez MD Work Phone: [facility] 06-30-2021 influenza (aIIV4) vaccine, age 65+ yr, quadrivalent, PF (FLUAD QUADRIVALENT) Amrik Gutierrez MD Work Phone: [facility] 06-30-2021 influenza, high dose seasonal, preservative-free Amrik Gutierrez MD Work Phone: [facility] Work Phone: 01-08-2021 COVID-19 vaccine, fu ll dose (MODERNA) Amrik Gutierrez MD Work Phone: [facility] 12-11-2020 COVID-19 vaccine, fu ll dose (MODERNA) Amrik Gutierrez MD Work Phone: [facility] 07-04-2020 influenza, high dose seasonal, preservative-free Amrik Gutierrez MD Work Phone: [facility] 07-04-2020 influenza, injectabl e, quadrivalent, preservative free Amrik Gutierrez MD Work Phone: [facility] 08-18-2019 influenza, high dose seasonal, preservative-free Amrik Gutierrez MD Work Phone: [facility] Work Phone: 08-18-2019 Seasonal trivalent influenza vaccine, adjuvanted, preservative free Amrik Gutierrez MD Work Phone: [facility] 06-14-2019 tetanus toxoid, redu nav diphtheria toxoid, and acellular pertussis vaccine, adsorbed Amrik Gutierrez MD Work Phone: [facility] Work Phone: 08-18-2018 influenza, high dose seasonal, preservative-free Armik Gutierrez MD Work Phone: [facility] 09-13-2017 influenza, high dose seasonal, preservative-free Amrik Gutierrez MD Work Phone: [facility] 09-13-2015 pneumococcal conjuga te vaccine, 13 valrosario Gutierrez MD Work Phone: [facility] 02-28-2015 tetanus and diphther ia toxoids, adsorbed, preservative free, for adult use (5 Lf of tetanus toxoid and 2 Lf of diphtheria toxoid) Amrik Gutierrez MD Work Phone: [facility] 09-24-2010 pneumococcal polysaccharide vaccine, 23 valrosario Gutierrez MD Work Phone: [facility] Work Phone: 02-05-2003 pneumococcal polysaccharide vaccine, 23 valrosario Gutierrez MD Work Phone: [facility] Work Phone: Payers Date Payer Category Payer Medicare [id number] 2015 Private Health Insurance HUMANA HUMANA MEDICARE SUPPLEMENT [id number] 2015-Present [phone] [address] [address] [place] [address] Indemnity [id number] 2015 Private Health Insurance HUMANA HUMANA MEDICARE SUPPLEMENT [id number] 2015-Present [phone] [address] [address] [place] [address] Indemnity [id number] 2006 Medicare MEDICARE MEDICAR E A AND B [id number] 2006-Present [phone] [place] [address] Medicare [id number] 2006 Medicare MEDICARE MEDICAR E A AND B [id number] 2006-Present [phone] [place] [address] Medicare [id number] 2006 Medicare [id number] Social History Date Type Detail Facility Start: 01-09-2018 End: 05-16-2023 Tobacco smoking status NHIS Never smoked tobacco [facility] Start: 11-16-2021 End: 11-16-2023 Alcohol intake Current drinker of alcohol (finding) [facility] Start: 1940 Sex Assigned At Not on file C [facility] Start: 02-03-2022 End: 03-08-2022 Exposure to SARS-CoV-2 (event) Not sure [facility] Start: 01-09-2018 End: 05-16-2023 Tobacco use and exposure Smokeless tobacco non-user [facility] Work Phone: Start: 11-15-2022 History SDOH Alcohol Frequency 3 [facility] Start: 11-15-2022 History SDOH Alcohol Std Drinks 1 [facility] Start: 11-15-2022 History SDOH Social Connections Phone 4 [facility] Start: 11-15-2022 History SDOH Social Connections Get Together 2 [facility] Start: 11-14-2022 End: 05-16-2023 [facility] Start: 11-14-2022 End: 05-16-2023 Social connection and isolation panel [facility] Do you belong to any clubs or organizations such as yazidi groups, unions, fraternal or athletic groups, or school groups? No [facility] Are you now , , , , never or living with a partner? [facility] How often to you hav e a drink containing alcohol? 2-4 times a month [facility] How many standard dr inks containing alcohol do you have on a typical day? 1 or 2 [facility] How often do you hav e 6 or more drinks on 1 occasion? Never [facility] Adult Depression Scr eening Assessment 0 [facility] (I/We) worried maren er (my/our) food would run out before (I/we) got money to buy more. Never true [facility] Clinical Notes 07-30-2008 to 01-24-2024 Telephone Encounter - Reny Medrano LPN - 01/24/2024 10:37 AM EDTPatient InstructionsAmrik Gutierrez MD - 11/16/2023 10:50 AM ESTTelephone Encounter - Jane Seymour - 10/25/2023 9:08 AM EST Note Date & Type Note Facility 01-24-2024 Miscellaneous Notes Patient has been identified by name and date of : Yes Patient phones for refill(s): Requested Prescriptions Pending Prescriptions Disp Refills amLODIPine (NORVASC) 5 mg tablet [Pharmacy Med Name: AMLODIPINE BESYLATE 5 MG TAB] 90 tablet 3 Sig: take 1 tablet by mouth once daily Date of last office visit in primary care: 11/16/2023 Date of next office visit in primary care: 05/18/2024 Please advise. Thank you. Reny Medrano LPN. documented in this encounter [facility] 11-16-2023 Note HNO ID: [id number] Author: AMRIK GUTIERREZ MD Service: ? Author [...] with: F/U 6 months Transition Of Care: [facility] F/U 11/05/23 - 11/06/23 SUBJECTIVE: Sadaf Ugarte [...] effort is normal. (more content not included)... [facility] 11-16-2023 Instructions Amrik Gutierrez MD - 11/16/2023 11:29 AM EST Labs after 1 month then prior to 6 month follow ups documented in this encounter [facility] 11-16-2023 History of Presen t illness Narrative [...] with: F/U 6 months Transition Of Care: [facility] F/U 11/05/23 - 11/06/23 SUBJECTIVE: Sadaf Ugarte [...] Diagnosis ICD-10-CM 1. Coronary artery disease involving [place] coronary artery of [place] heart without angina pectoris I25.10 Doing well since hospitalization and stent placement 2. H/O non-ST elevation myocardial infarction (NSTEMI) I25.2 Doing well 3. S/P drug eluting coronary stent placement Z95.5 Left circumflex 4. Cough R05.9 penicillin V potassium 500 mg tablet sometimes productive of green sputum, sometimes dry; chronic. History of bronchiectasis noted.Follows with anode rebuilder 5. Essential hypertension I10 COMP METABOLIC PANEL [...] Amrik Gutierrez MD documented in this encounter [facility] 11-10-2023 Note HNO ID: [id number] Author: Aida Rogel RN Service: ? Author Type: Registered Nurse Type: Progress Notes Filed: 11/10/2023 2:09 PM Note Text: TRANSITION CARE MANAGEMENT (TCM) INITIAL CONTACT Debarker Operator Outreach Provider Action/FYI: Patient voices no needs at this time. Initial contact with patient post discharge, spoke to patient. Patient identified by name and . TRANSITION CARE MANAGEMENT INITIAL OUTREACH DOCUMENTATION: Date of Outreach: 11/10/2023 11/09/2023 Outreach Attempt 1: - - Outreach Attempt 2: - Contact Not Made Date of Discharge 11/06/2023 11/06/2023 Some recent data might be hidden SUMMARY: -Pt discharged from [facility] on 11/06/2023. -Admitted for: Chest Pain Do [...] Medical records from recent hospitalization: Care Everywhere [facility] 11-09-2023 Note HNO ID: [id number] Author: Lisa Mulligan LPN Service: ? Author Type: LICENSED NURSE Type: Progress Notes Filed: 11/10/2023 2:09 PM Note Text: Message left again for return call to nurse to complete TCM notes. [facility] 11-09-2023 Note Patient Outreach (IN TMWS) SADAF UGARTE ([id number]) 1940 F Date Time Provider Department 11/09/23 AMRIK GUTIERREZ During your visit today, we recorded the [...] to nurse to complete TCM notes. Aida Rogel RN 11/10/2023 2:09 PM Signed TRANSITION CARE MANAGEMENT (TCM) INITIAL CONTACT Debarker Operator Outreach Provider Action/FYI: Patient voices no needs at this time. Initial contact with patient post discharge, spoke to patient. Patient identified by name and . TRANSITION CARE MANAGEMENT INITIAL OUTREACH DOCUMENTATION: Date of Outreach: 11/10/2023 11/09/2023 Outreach Attempt 1: - - Outreach Attempt 2: - Contact Not Made Date of Discharge 11/06/2023 11/06/2023 Some recent data might be hidden SUMMARY: -Pt discharged from [facility] on 11/06/2023. -Admitted for: Chest Pain Do [...] Date Reviewed: 05/16/2023 Reviewed by: Miryam Sanchez APRN.TOOTH INSPECTOR - Fully Assessed Reason for Visit: Transition Of Care [4074] Prescriptions as of 11/10/2023 - BABY ASPIRIN [...] disorder [L29.9] 05/16/20 (more content not included)... [facility] 11-09-2023 Note HNO ID: [id number] Author: Lisa Mulligan LPN Service: ? Author Type: LICENSED NURSE Type: Progress Notes Filed: 11/10/2023 2:09 PM Note Text: Message left for p to return call to NURSE to complete TCM notes. Pt has appt with pcp 11/16/23 but did want to make contact to complete TCM notes. [facility] 10-25-2023 Miscellaneous Notes Patient has been identified [...] you. Jane Seymour. documented in this encounter [facility] 10-25-2023 Miscellaneous Notes Patient has been identified [...] you. Jane Seymour. documented in this encounter [facility] 10-10-2023 Miscellaneous Notes Patient has been identified [...] Reny Medrano LPN. documented in this encounter [facility] 10-05-2023 Miscellaneous Notes Spoke with pt and [...] you. DELROY Molina. documented in this encounter [facility] 05-16-2023 Note HNO ID: [id number] Author: Miryam Sanchez APRN.TOOTH INSPECTOR Service: ? Author Type: Nurse Practitioner Type: [...] Constitutional: General: Sh (more content not included)... [facility] 05-16-2023 History of Presen t illness Narrative [...] Miryam Sanchez APRN-ROD documented in this encounter [facility] 05-02-2023 Miscellaneous Notes The following approved medication [...] Iza Guerrero LPN documented in this encounter [facility] 04-18-2023 Miscellaneous Notes Patient has been identified [...] Reny Medrano LPN documented in this encounter [facility] 04-18-2023 Miscellaneous Notes Patient has been identified [...] Reny Medrano LPN documented in this encounter [facility] 02-09-2023 Miscellaneous Notes Patient has been identified [...] Marie Bob LPN documented in this encounter [facility] 11-16-2022 History of Presen t illness Narrative This note was created using [employer]. Subjective Sadaf Ugarte is a 82 year [...] Lymph 1.00 - 4.00 k/uL 1.88 2.03 Lake% % 6.7 8.0 Abs Lake <0.87 k/uL 0.58 0.58 Eosin% % 2.2 [...] Amrik Gutierrez MD documented in this encounter [facility] 10-25-2022 Miscellaneous Notes Last office visit: 03/08/22 Next appointment scheduled: 11/16/22 Patient phones requesting refills as follows: Requested Prescriptions Pending Prescriptions Disp Refills venlafaxine ER (EFFEXOR XR) 150 mg 24 hr capsule 90 capsule 3 Sig: Take 1 capsule by mouth once daily. Please review and advise. Iza Guerrero LPN documented in this encounter [facility] 09-06-2022 Miscellaneous Notes The following approved medication requests have been transmitted electronically. Requested Prescriptions Signed Prescriptions Disp Refills ALPRAZolam (XANAX) 0.25 mg tablet 30 tablet 0 Sig: Take 0.5-1 tablets by mouth once daily as needed for up to 60 days. Authorizing Provider: AMRIK GUTIERREZ MD Last OV: 03/08/22 Next OV: 11/16/22 documented in this encounter [facility] 08-24-2022 Miscellaneous Notes Spoke with pt and [...] Jolene Bergman LPN documented in this encounter [facility] 05-31-2022 Miscellaneous Notes Patient has been identified [...] Jolene Bergman LPN documented in this encounter [facility] 03-08-2022 History of Presen t illness Narrative SUBJECTIVE: SHINGRIX VACCINE(1 of 2) Never done HPI Sadaf Ugarte is a 81 year old female. She is in her usual state of health. She notes her is ill and has appointment with PCP tomorrow. She has concerns for him. She notes being in [facility] for about a month in the ICU following COVID virus infection. Does not feel that she is got back to baseline since then but is feeling improved. She was seen in 02/19/2022 for urinary frequency and cough. CXR showed streaky densities in the right lung base. Multiple small nodules in the right lung. Treated with zpak and cefdinir. Advised to follow up [facility] anode rebuilder the following week. Completed : No she [...] UNTIL READY FOR DOSE - Dr. Sixto Jimenezaxseed Oil oil Epinastine HCl (ELESTAT) 0.05 % [...] Abs Lymph 1.00 - 4.00 k/uL 1.88 Lake% % 6.7 Abs [place] <0.87 k/uL 0.58 Eosin% % 2.2 Abs [...] of bronchiectasis. Notes that she follows with anode rebuilder Dr. Henson. States she said prior fungal [...] activity was identified. 03/08/2022 by Neida Martinez APRN.FIELD BROOMER 5. Vitamin D deficiency - ICD9: 268.9, [...] 4 - Moderate documented in this encounter [facility] 03-05-2022 Miscellaneous Notes Patient states that at [...] with one of these rec'd fax from [facility] of [facility] results. They are positive. documented in this encounter [facility] 02-19-2022 History of Presen t illness Narrative [...] been right since. She does see a anode rebuilder and is on Breo and albuterol. BP [...] have confirmed and edited as necessary, the [facility] Review of Systems Constitutional: Negative for [...] chest x-ray - ICD9: 793.2, ICD10: R93.89 zpack Cefdinir Recheck with anode rebuilder Follow up next week with anode rebuilder. Diagnosis and treatment plan were discussed and questions were answered to the patient's satisfaction. Pt acknowledged understanding of concepts and follow up plan. Specific signs and symptoms that would indicate the need for higher level of care were discussed in detail warranting prompt ER evaluation. Teri Saenz APRN.ROD documented in this encounter [facility] 02-15-2022 History of Presen t illness Narrative CC: Patient presents with: UTI: UC 4/2, not taking the cipro, not helping sx [...] and gross hematuria . Denies back/flank pain. MINK SLICER: total hysterectomy, no unusual vaginal discharge or [...] Laterality Date CARPAL TUNNEL 12/01/10 left hand, [facility], Dr Kahn CHOLECYSTECTOMY 08/29/1995 Cholecystectomy CMBND ANTERPOST COLPORRAPHY W/CYSTO 2006 dr. soto COLONOSCOPY FLX DX W/COLLJ SPEC WHEN PFRMD 01/30/2004 Colonoscopy MAL LESION NECK,HAND,SCAL 0.6-1CM 07/14/11 Exc. left post-auricular skin lesion MASTECTOMY 07/31/1998 left PAST SURGICAL HISTORY OF 12/01/10 Left middle trigger finger release, [facility], Dr Kahn REM LESION NEC,HND,SCAL 0.6-1.0CM 12/09/07 Exc. right frontal scalp lesion S SLING BLADR PELVI TOTL 7179 2006 arc[place]ia TOTAL ABDOMINAL HYSTERECT W/WO RMVL TUBE OVARY [...] Quyen Mcgarry APRN.CNP documented in this encounter [facility] 02-14-2022 Miscellaneous Notes Patient given results and verbalized understanding of instructions given. Janki Holguin ----- Message from Jessica Oswald APRN.CNP sent at 02/14/2022 1:50 PM EDT ----- Urine culture did not show any evidence of infection. She may continue to take antibiotic if it has been helpful. If not improving, recommend follow up with PCP. Jessica Oswald CNP documented in this encounter [facility] 02-13-2022 History of Presen t illness Narrative [...] Laterality Date CARPAL TUNNEL 12/01/10 [facility] 08/29/1995 Cholecystectomy CMBND ANTERPOST COLPORRAPHY W/CYSTO 2006 dr. hwang and lisha COLONOSCOPY FLX DX W/COLLJ SPEC WHEN PFRMD 01/30/2004 Colonoscopy MAL LESION NECK,HAND,SCAL 0.6-1CM 07/14/11 Exc. left post-auricular skin lesion MASTECTOMY 07/31/1998 left PAST SURGICAL HISTORY OF 12/01/10 Left middle trigger finger [facility] REM LESION NEC,HND,SCAL 0.6-1.0CM 12/09/07 Exc. right frontal scalp lesion S SLING BLADR PELVI TOTL 1496 2006 lisha TOTAL ABDOMINAL HYSTERECT W/WO RMVL [...] UNTIL READY FOR DOSE - Dr. Sixto Jimenezaxed Oil oil Epinastine HCl (ELESTAT) 0.05 % [...] Discussed expected course of illness Jessica Oswald APRN.CNP documented in this encounter [facility] 02-13-2022 Instructions Jessica Oswald APRN.CNP - 02/13/2022 [...] Discussed expected course of illness Jessica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
--- NOTE | 2024-01-27 21:30 | ED.RN ---
SPOKE WITH LAB REGARDING TROPONIN TIMES AND RESULTS.
--- NOTE | 2024-01-27 21:36 | ED.RN ---
SPOKE WITH FAMILY TO UPDATE ON PLAN OF CARE. AWAITING PHYSICIAN EVALUATION.
== END 2024-01-27 22:52 | disposition home or self-care (01) ==
PROVIDERS: Emergency Provider Emergency Medicine; PCP Internal Medicine; Visit Provider Emergency Medicine
DX: M25.511 Pain in right shoulder (principal); R07.89 Other chest pain; I25.10 Atherosclerotic heart disease of native coronary artery without angina pectoris; F41.9 Anxiety disorder, unspecified; Z95.5 Presence of coronary angioplasty implant and graft; F32.A Depression, unspecified; I10 Essential (primary) hypertension; Z79.899 Other long term (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 therapy; Z79.82 Long term (current) use of aspirin; Z79.02 Long term (current) use of antithrombotics/antiplatelets
CPT/HCPCS: 71045; 80048; 84484; 85025; 93005; 99283

== ENCOUNTER 2024-02-15 07:42 | Emergency (ER) | payer MEDICARE, OTHER, SELFPAY ==
[2024-01-02 14:04] VITALS: BMI 32.8
[2024-02-15] VITALS (13 sets, daily range): BP systolic 146–179; BP diastolic 72–89; PULSE 69–89; RESP 12–20; TEMP 35.4–36.6; O2SAT 94–98; BMI 34.9
--- NOTE | 2024-02-15 07:52 | RAD_ITS ---
STUDY: X-RAY CHEST REASON FOR EXAM: Female, 83 years old. Chest pain TECHNIQUE: Single AP portable view of the chest. COMPARISON: Comparison is made with prior study January 27, 2024. FINDINGS: EKG electrodes are seen. Surgical clips are seen in the left axilla. The patient is status post left mastectomy. Residual increased markings in the peripheral lateral aspect of the right mid lung as well as at the right lung base although there has been some improvement. Persistent increased markings in the right lung apex. There is no demonstrated pleural abnormality. Normal size heart. Normal mediastinum and amy. Normal visualized pulmonary arteries. There is atherosclerotic calcification of the aortic arch with tortuosity. There are diffuse degenerative changes of the visualized thoracic spine. Normal visualized ribs, clavicles, and shoulders. There is no demonstrated abnormality of the visualized soft tissue structures of the upper abdomen. RAD/Chest 1 View (Portable) IMPRESSION: Persistent patchy area of increased density in the right hemithorax as described although there has been improved aeration as compared to prior study. No new acute abnormality is seen. Electronically Signed: Cj Sandy MD at 8:12 EDT ,
--- NOTE | 2024-02-15 07:52 | EKG12_ITS ---
Test Reason : CHEST PAIN Blood Pressure : / mmHG Vent. Rate : 062 BPM Atrial Rate : 062 BPM P-R Int : 172 ms QRS Dur : 094 ms QT Int : 434 ms P-R-T Axes : 029 -45 090 degrees QTc Int : 440 ms Normal sinus rhythm Left anterior fascicular block Moderate voltage criteria for LVH, may be normal variant ( R in aVL , Jacob product ) Nonspecific T wave abnormality Abnormal ECG Confirmed by TRACI CUNNINGHAM, LOUIS ([id number]), continuity editor GELY PETERSON ([id number]) on 02/16/2024 9:47:50 AM Referred By: Confirmed By:LOUIS AVILSE MD
[2024-02-15 08:01] LABS: Absolute Lymphocyte Count 1.68 X10^3/uL (0.83-4.51); Basophil# 0.07 X10^3/uL; Basophil% 1.1 % (0-1); Eosinophil# 0.31 X10^3/uL; Eosinophils% 4.7 % (0-5); Hematocrit 44.9 % (37-47); Hemoglobin 14.8 g/dL (12.0-15.0); Lymphocyte # 1.68 X10^3/ul (0.83-4.51); Lymphocyte % 25.7 % (19-41); Mean Corpuscular Hgb 29.2 pg (27.0-32.0); Mean Corpuscular Volume 88.6 fL (81-99); Mean Platelet Vol. 9.8 fl (6.2-12.0); Monocyte# 0.42 X10^3/uL; Monocyte% 6.4 % (0-10); NRBC Flagged by Analyzer 0 % (0-5); Neutrophil # 4.03 X10^3/uL (2.7-7.7); Neutrophil % 61.8 % (47-70); Platelet Count 340 K/mm3 (150-450); RBC Distribution Width CV 13.6 % (11.6-14.6); RBC Distribution Width SD 43.9 fl (35.1-43.9); Red Blood Count 5.07 M/mm3 (4.2-5.4); White Blood Count 6.5 K/mm3 (4.4-11.0)
[2024-02-15] MEDS: Aspirin 81 MG TAB.CHEW 324 MG PO (08:02)
[2024-02-15 08:19] LABS: Anion Gap 6 (5-15); BUN 16 mg/dL (7-18); BUN/Creat Ratio 14.8 RATIO (10-20); Calcium,Total 8.6 mg/dL (8.5-10.1); Chloride 112 mmol/L (98-107); Creatinine, Serum 1.08 mg/dL (0.55-1.02); EST Glomerular Filtration Rate 52 mL/min (>60); Est Glom Filt Rate - Afr Amer 62 mL/min (>60); Estimated Creatinine Clearance 36.56 ml/min; Glucose 100 mg/dL (74-106); Potassium 3.6 mmol/L (3.5-5.1); Sodium Level 142 mmol/L (136-145); Troponin-I HS (w/2H Reflex) 33 pg/mL (3.0-54.0)
--- NOTE | 2024-02-15 08:27 | ED.VIS.CHEST ---
HPI <Gisell Faust RN - Last Filed: 02/15/24 10:59> History of Present Illness Chief Complaint: Chest Pain Onset/Context/Timing Onset: Today Activity at onset: sudden Timing: Continuous Quality: Positive for Aching Location: Right Chest and Left Chest Current Severity: 8/10 Maximum Severity: 8/10 Worsened By: Movement of Arm, Movement of Torso, Palpation and Breathing Relieved By: Nothing Associated Symptoms: Negative for Nausea, Vomiting, Diaphoresis, Dyspnea, Cough, Fever, Lightheadedness or Palpitations Narrative Narrative: Patient is an 83-year-old female with past medical history significant for CAD, MD in 10/2023, and chronic cough who presents to the ED for bilateral upper chest aching. She reports she was awoken from her sleep with this discomfort. She also reports it feels similar to when she had her last MD in October 2023. At that time she did receive 2 stents to her circumflex and she also has a 70% RCA occlusion. Pain is worse with inspiration, cough, palpation, and movement of her torso and upper extremities. She denies shortness of breath. She reports a chronic cough with green sputum due to mold in her lungs. She also reports numbness and tingling to bilateral arms. She denies dizziness and lightheadedness. Denies nausea, vomiting, or diarrhea. There are no aggravating or relieving factors. She denies recent travel. Prior Similar Symptoms: Yes and With Prior MD Recent Illness/Hospitalization: No CVD Risk Factors: Positive for Hypertension; Negative for Diabetes, Hypercholesterolemia, Family History 1' </=55 or Smoking PE Risk Factors: Negative for Recent Travel/Surgery, Recent Immobilization, Prior DVT or PE or OCP + Smoking + >/=35 PFSH <Gisell Faust RN - Last Filed: 02/15/24 10:59> PFSH Medical History Anxiety and depression Breast cancer CAD (coronary artery disease) Hypertension Home Medications alprazolam 0.25 mg tablet 0.125 - 0.25 mg PO BID PRN Anxiety 10/14/15 [History Last Taken 01/21/24] amlodipine 5 mg tablet 5 mg PO DAILY blood prssure 10/14/15 [History Last Taken 01/27/24] timolol maleate 0.5 % eye drops 1 drp BID glaucoma 10/14/15 [History Last Taken 01/27/24] ergocalciferol (vitamin D2) 1,250 mcg (50,000 unit) capsule (Vitamin D2) 50,000 unit PO UD supplement 01/26/16 [History Last Taken 01/22/24] fluticasone furoate 200 mcg-vilanterol 25 mcg/dose inhalation powder (Breo Ellipta) 1 puff inhalation DAILY lungs 11/03/18 [History Last Taken 01/27/24] omeprazole 40 mg capsule,delayed release 40 mg PO DAILY gerd 11/03/18 [History Last Taken 01/27/24] penicillin V potassium 500 mg tablet 500 mg PO DAILY prophylaxis 09/12/20 [History Last Taken 01/27/24] venlafaxine 150 mg capsule,extended release 24 hr 150 mg PO DAILY depression 09/12/20 [History Last Taken 01/27/24] albuterol sulfate 90 mcg/actuation aerosol inhaler 2 inh inhalation Q4H PRN Wheezing 08/31/22 [History Last Taken 08/30/22] fexofenadine 180 mg tablet 180 mg PO DAILY allergies 08/31/22 [History Last Taken 01/27/24] fluticasone propionate 50 mcg/actuation nasal spray,suspension 2 spray intranasal DAILY PRN allergies 08/31/22 [History Last Taken 2 Days Ago ~08/29/22] aspirin 81 mg chewable tablet 81 mg PO DAILYCM #0 tabs 11/06/23 [Rx Last Taken 01/27/24] nitroglycerin 0.4 mg sublingual tablet 0.4 mg sublingual Q5M PRN Chest pain #10 tabs 11/06/23 [Rx Last Taken Unknown] atorvastatin 40 mg tablet 40 mg PO QHS #90 tabs 12/09/23 [Rx Last Taken 01/26/24] clopidogrel 75 mg tablet 75 mg PO DAILY #90 tabs 12/09/23 [Rx Last Taken 01/27/24] isosorbide mononitrate 30 mg tablet,extended release 24 hr 30 mg PO DAILY #30 tabs 12/09/23 [Rx Last Taken 01/27/24] metoprolol tartrate 25 mg tablet 25 mg PO BID #180 tabs 12/09/23 [Rx Last Taken 01/27/24] Allergy/AdvReac Type Severity Reaction Status Date / Time hydrogen peroxide AdvReac Other Verified 02/15/24 07:47 oxycodone HCl [From Percodan] AdvReac Nausea Verified 02/15/24 07:47 oxycodone terephthalate AdvReac Nausea Verified 02/15/24 07:47 [From Percodan] Sulfa (Sulfonamide AdvReac Nausea/Vom/ Verified 02/15/24 07:47 Antibiotics) Diarrhea Surgical History H/O: hysterectomy Hx of appendectomy Hx of cholecystectomy Hx of mastectomy Hx of tonsillectomy Stented coronary artery (~11/05/23) Social History Smoking Status: Never smoker ROS <Gisell Faust RN - Last Filed: 02/15/24 10:59> ROS ED Constitutional Constitutional ED: Denies chills, fever(s) or sweats Eyes Eyes: Denies change in vision ENT ENT ED: Denies ear pain, rhinorrhea or sore throat Cardiovascular Cardiovascular: Reports chest pain; Denies palpitations, paroxysmal nocturnal dyspnea or racing heartbeat Respiratory/Chest Respiratory/Chest: Reports cough and dyspnea; Denies dyspnea on exertion or paroxysmal nocturnal dyspnea Gastrointestinal Gastrointestinal: Denies abdominal pain, diarrhea, nausea or vomiting Genitourinary Genitourinary ED: Denies dysuria, hematuria or urinary frequency Musculoskeletal Musculoskeletal: Denies arthralgias or myalgias Integumentary Denies rash Neurologic Neurologic: Reports paresthesias and other Details: Patient reports numbness and tingling to bilateral arms. ; Denies headache(s) or weakness Psychiatric Psychiatric: Denies anxiety EXAM <Gisell Faust RN - Last Filed: 02/15/24 10:59> Physical Exam Narrative Exam Narrative: Patient is awake, alert, cooperative, fair historian. Const Vital Signs: 02/15/24 07:43 02/15/24 07:43 02/15/24 07:56 Temperature 95.7 F L 95.7 F L Temperature Source Oral Temporal Pulse Rate 70 69 Respiratory Rate 19 H 12 Blood Pressure 152/77 H 152/77 H Blood Pressure Mean 102 102 Pulse Ox 95 95 98 Oxygen Delivery Method Room Air Room Air Room Air 02/15/24 08:47 02/15/24 09:04 02/15/24 08:22 Temperature 97.8 F 97.2 F L Temperature Source Oral Oral Pulse Rate 71 70 69 Respiratory Rate 17 15 18 Blood Pressure 167/78 H 163/81 H Blood Pressure Mean 107 108 Pulse Ox 96 96 97 Oxygen Delivery Method Room Air Room Air 02/15/24 08:30 02/15/24 08:45 02/15/24 09:00 Temperature Temperature Source Pulse Rate 71 82 72 Respiratory Rate 16 17 18 Blood Pressure 167/75 H 163/81 H Blood Pressure Mean 102 103 Pulse Ox 97 97 Oxygen Delivery Method 02/15/24 09:15 02/15/24 09:30 02/15/24 09:45 Temperature Temperature Source Pulse Rate 73 72 75 Respiratory Rate 13 17 18 Blood Pressure 179/76 H 165/83 H 174/89 H Blood Pressure Mean 106 107 113 Pulse Ox 96 94 95 Oxygen Delivery Method 02/15/24 10:00 02/15/24 11:00 02/15/24 11:00 Temperature 97.4 F L 97.4 F L Temperature Source Oral Pulse Rate 76 79 89 Respiratory Rate 18 20 H 20 H Blood Pressure 176/88 H 146/72 H 146/72 H Blood Pressure Mean 114 96 96 Pulse Ox 95 96 94 Oxygen Delivery Method Room Air Positive well nourished and well developed General Appearance ED: well developed and NAD HEENT Reports moist mucous membranes Eyes PERRL Neck no lymphadenopathy, supple and no JVD Chest Wall inspection of chest normal and palpation of chest normal Resp normal respiratory effort and clear to auscultation bilaterally Effort and Inspection: pain with movement RUE and LUE; Negative for respiratory distress Auscultation: Negative for rales, rhonchi or wheezes Cardio regular rate, regular rhythm, S1 normal heart sound and S2 normal heart sound Peripheral Pulses: pulses 2+ throughout GI normal to inspection, nondistended, normoactive bowel sounds, soft to palpation and non-tender Narrative: Denies dysuria, hematuria, and urinary frequency Extremity normal to inspection General Extremety ED: Negative for edema General Extremity: Negative for edema Neuro oriented x3 Sensorium / Orientation: awake Motor Exam: general weakness Psych mental status grossly normal Skin no rashes or lesions noted and no wounds <Dr. Amena Shine MD - Last Filed: 02/15/24 11:07> Physical Exam Const Vital Signs: 02/15/24 07:43 02/15/24 07:43 02/15/24 07:56 Temperature 95.7 F L 95.7 F L Temperature Source Oral Temporal Pulse Rate 70 69 Respiratory Rate 19 H 12 Blood Pressure 152/77 H 152/77 H Blood Pressure Mean 102 102 Pulse Ox 95 95 98 Oxygen Delivery Method Room Air Room Air Room Air 02/15/24 08:47 02/15/24 09:04 02/15/24 08:22 Temperature 97.8 F 97.2 F L Temperature Source Oral Oral Pulse Rate 71 70 69 Respiratory Rate 17 15 18 Blood Pressure 167/78 H 163/81 H Blood Pressure Mean 107 108 Pulse Ox 96 96 97 Oxygen Delivery Method Room Air Room Air 02/15/24 08:30 02/15/24 08:45 02/15/24 09:00 Temperature Temperature Source Pulse Rate 71 82 72 Respiratory Rate 16 17 18 Blood Pressure 167/75 H 163/81 H Blood Pressure Mean 102 103 Pulse Ox 97 97 Oxygen Delivery Method 02/15/24 09:15 02/15/24 09:30 02/15/24 09:45 Temperature Temperature Source Pulse Rate 73 72 75 Respiratory Rate 13 17 18 Blood Pressure 179/76 H 165/83 H 174/89 H Blood Pressure Mean 106 107 113 Pulse Ox 96 94 95 Oxygen Delivery Method 02/15/24 10:00 02/15/24 11:00 02/15/24 11:00 Temperature 97.4 F L 97.4 F L Temperature Source Oral Pulse Rate 76 79 89 Respiratory Rate 18 20 H 20 H Blood Pressure 176/88 H 146/72 H 146/72 H Blood Pressure Mean 114 96 96 Pulse Ox 95 96 94 Oxygen Delivery Method Room Air MDM <Gisell Faust RN - Last Filed: 02/15/24 10:59> [facility] Narrative Medical decision making narrative: Patient placed on personnel monitor. IV line initiated. Labwork obtained to evaluate for leukocytosis, anemia, and electrolyte derangement. EKG obtained to evaluate for cardiac arrhythmia/ischemia. Chest x-ray obtained to evaluate for acute lung pathology, cardiac size, or mediastinal abnormality. History & Record Review Discussion w/independent historian: Patient Lab Data Attestation: I reviewed the patient's lab results. Labs: Laboratory Results - last 24 hr 02/15/24 02/15/24 07:51 10:04 WBC 6.5 RBC 5.07 Hgb 14.8 Hct 44.9 MCV 88.6 MCH 29.2 MCHC 33.0 RDW Std Deviation 43.9 RDW Coeff of Henry 13.6 Plt Count 340 MPV 9.8 Immature Gran % (Auto) 0.300 Neut % (Auto) 61.8 Lymph % (Auto) 25.7 [place] % (Auto) 6.4 Eos % (Auto) 4.7 Baso % (Auto) 1.1 H Absolute Neuts (auto) 4.0 Absolute Lymphs (auto) 1.68 Nucleated RBC % 0 Sodium 142 Potassium 3.6 Chloride 112 H Carbon Dioxide 24.0 Anion Gap 6 BUN 16 Creatinine 1.08 H Estim Creat Clear Calc 36.56 Est GFR (MDRD) Af Amer 62 Est GFR (MDRD) Non-Af 52 L BUN/Creatinine Ratio 14.8 Glucose 100 Calcium 8.6 Troponin I High Sens 33 34 Radiography Chest X-Ray - ED: 1 View, No Acute Disease and Chronic Changes Diagnostic Testing: Clinical Impression(s) from Imaging Studies Chest X-Ray 02/15/24 07:52 IMPRESSION: Persistent patchy area of increased density in the right hemithorax as described although there has been improved aeration as compared to prior study. No new acute abnormality is seen. Electronically Signed: Cj Sandy MD at 8:12 EDT , EKG Initial EKG: Attestation: I personally reviewed and interpreted this EKG as follows: Interpretation: Sinus Rhythm Comments: Sinus rhythm with rate 62. No dysrhythmia or ischemia noted. Differential Diagnosis Chest pain/SOB: ACS ACS: Positive for EKG without ischemia and pneumonia Management Discussion w/another healthcare provider: Other (Dr. Shine, ED provider) Treatment and Re-Evaluation :: Lab work and imaging reviewed. CBC is unremarkable with white blood cell count 6.5, hemoglobin 14.8, platelets 340. Chemistry shows normal sodium of 142, potassium 3.6, chloride slightly elevated at 112, creatinine is 1.08 which is slightly decreased from 01/27/2024 when it was 1.10, and glucose is 100. High-sensitivity troponin is 33. Chest x-ray shows chronic changes. EKG shows normal sinus rhythm with a rate of 62. No ischemia or dysrhythmia noted. Repeat troponin is negative at 34. Dr. Fragoso spoke with Dr. Abad from cardiology who advised that since repeat troponin is negative patient may be discharged home with follow-up with cardiology. Upon reevaluation, patient appears to be resting comfortably in bed with family at bedside. Patient updated on lab work and imaging. She is agreeable to discharge home with follow-up from Dr. Abad. She has been advised to return to ED for worsening or concerning symptoms. <Dr. Amena Shine MD - Last Filed: 02/15/24 11:07> [facility] Lab Data Labs: Laboratory Results - last 24 hr 02/15/24 02/15/24 07:51 10:04 WBC 6.5 RBC 5.07 Hgb 14.8 Hct 44.9 MCV 88.6 MCH 29.2 MCHC 33.0 RDW Std Deviation 43.9 RDW Coeff of Henry 13.6 Plt Count 340 MPV 9.8 Immature Gran % (Auto) 0.300 Neut % (Auto) 61.8 Lymph % (Auto) 25.7 [place] % (Auto) 6.4 Eos % (Auto) 4.7 Baso % (Auto) 1.1 H Absolute Neuts (auto) 4.0 Absolute Lymphs (auto) 1.68 Nucleated RBC % 0 Sodium 142 Potassium 3.6 Chloride 112 H Carbon Dioxide 24.0 Anion Gap 6 BUN 16 Creatinine 1.08 H Estim Creat Clear Calc 36.56 Est GFR (MDRD) Af Amer 62 Est GFR (MDRD) Non-Af 52 L BUN/Creatinine Ratio 14.8 Glucose 100 Calcium 8.6 Troponin I High Sens 33 34 Radiography Diagnostic Testing: Clinical Impression(s) from Imaging Studies Chest X-Ray 02/15/24 07:52 IMPRESSION: Persistent patchy area of increased density in the right hemithorax as described although there has been improved aeration as compared to prior study. No new acute abnormality is seen. Electronically Signed: Cj Sandy MD at 8:12 EDT , Treatment and Re-Evaluation :: Lab work and imaging reviewed. CBC is unremarkable with white blood cell count 6.5, hemoglobin 14.8, platelets 340. Chemistry shows normal sodium of 142, potassium 3.6, chloride slightly elevated at 112, creatinine is 1.08 which is slightly decreased from 01/27/2024 when it was 1.10, and glucose is 100. High-sensitivity troponin is 33. Chest x-ray shows chronic changes. EKG shows normal sinus rhythm with a rate of 62. No ischemia or dysrhythmia noted. Repeat troponin is negative at 34. Dr. Shine spoke with Dr. Abad from cardiology who advised that since repeat troponin is negative patient may be discharged home with follow-up with cardiology. Upon reevaluation, patient appears to be resting comfortably in bed with family at bedside. Patient updated on lab work and imaging. She is agreeable to discharge home with follow-up from Dr. Abad. She has been advised to return to ED for worsening or concerning symptoms. Patient seen and evaluated with [employer] student. I personally interviewed and examined the patient. I was involved in all aspects of patient's orders, interpretation of results, and treatment. Patient presents via EMS secondary to chest pain. She states she woke in the night and had numbness and tingling in her hands bilaterally. When she woke this morning she continued to have some numbness and tingling her hands as well as chest pain across her shoulders. She reports having similar pain last October when she had an NSTEMI. She does have 2 stents to the left circumflex. There was also a 70% blockage to the RCA noted at that time. Patient sitting upright in bed no acute distress. Head and neck examination unremarkable. Heart is regular rate and rhythm. Lung sounds are clear. Abdomen soft and nontender. Prehospital EKG had been reviewed and revealed no evidence of ischemia. Repeat EKG here is sinus rhythm with no evidence of ischemia. Patient given aspirin. Lab work includes normal white count at 6.5 with a hemoglobin of 14.8. No left shift. Chemistry studies unremarkable. Initial troponin is 33 with a repeat troponin of 34. Chest x-ray per my interpretation reveals chronic changes to the right lung, improving when compared to prior. Radiology interpretation reviewed and agrees. I did speak with Dr. Abad. He reviewed her prior imaging studies and states that she has diffuse disease in the RCA and does not think this will be amenable to intervention. He does recommend she continue medical treatment and follow-up as an outpatient. Return instructions provided. Discharge Plan Triage Chief Complaint: Chest Pain ED Provider: Amena Shine Dx/Rx/DC Orders Clinical Impression: Chest pain of uncertain etiology, History of hypertension, History of coronary artery disease Instructions: ED Chest Pain, Uncertain Cause Prescriptions: No Action clopidogrel 75 mg tablet 75 mg PO DAILY Qty: 90 3RF atorvastatin 40 mg tablet 40 mg PO QHS Qty: 90 3RF metoprolol tartrate 25 mg tablet 25 mg PO BID Qty: 180 3RF isosorbide mononitrate 30 mg tablet extended release 24 hr 30 mg PO DAILY Qty: 30 11RF amlodipine 5 MG tablet 5 mg PO DAILY timolol maleate 1 DROP drops 1 drp Each Eye BID alprazolam 0.25 MG tablet 0.125 - 0.25 mg PO BID PRN (Reason: Anxiety) ergocalciferol (vitamin D2) [Vitamin D2] 50,000 UNIT capsule 50,000 unit PO UD Patient Comments: TAKES EVERY OTHER WEEK ON TUESDAY Rx Instructions: every other week ON TUESDAY omeprazole 40 MG capsule,delayed release(DR/EC) 40 mg PO DAILY fluticasone furoate-vilanterol [Breo Ellipta] 1 EACH blister with device 1 puff inhalation DAILY Patient Comments: inhale 1 puff once daily, use with good oral care venlafaxine 150 MG capsule,extended release 24hr 150 mg PO DAILY penicillin V potassium 500 MG tablet 500 mg PO DAILY fexofenadine 180 mg tablet 180 mg PO DAILY albuterol sulfate 90 mcg/actuation HFA aerosol inhaler 2 inh INHALATION Q4H PRN (Reason: Wheezing) Patient Comments: inhale 2 puffs by mouth every 4 hours if needed for wheezing or shortness of breath fluticasone propionate 50 mcg/actuation spray,suspension 2 spray INTRANASAL DAILY PRN (Reason: allergies) Patient Comments: instill 2 sprays into each nostril once daily nitroglycerin 0.4 mg Tablet, Sublingual 0.4 mg sublingual Q5M PRN (Reason: Chest pain) Qty: 10 0RF aspirin 81 mg Tablet,Chewable 81 mg PO DAILYCM Qty: 0 0RF Primary Care Provider: Kristal Gutierrez Referrals: Maciel Abad MD [Med Staff - Active Staff] - (Follow-up in 3-5 days) Kristal Gutierrez MD [Primary Care Provider] - Activity Restrictions/Additional Instructions: Your lab work and chest x-ray are normal. Follow-up with Dr. Abad in 3 to 5 days. Return to the ED for worsening or concerning symptoms. Disposition Disposition: Home, Self Care Discharge Date/Time: 02/15/24 11:03
[2024-02-15 09:58] LABS: Reflex Troponin-HS? (from REC) Y
[2024-02-15 10:50] LABS: Troponin-I HS 34 pg/mL (3.0-54.0)
== END 2024-02-15 11:03 | disposition home or self-care (01) ==
PROVIDERS: Emergency Provider Emergency Medicine; PCP Internal Medicine; Visit Provider Emergency Medicine
DX: R07.9 Chest pain, unspecified (principal); R20.0 Anesthesia of skin; R20.2 Paresthesia of skin; I25.10 Atherosclerotic heart disease of native coronary artery without angina pectoris; I10 Essential (primary) hypertension; I25.2 Old myocardial infarction; Z79.82 Long term (current) use of aspirin; Z79.01 Long term (current) use of anticoagulants; Z79.899 Other long term (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 therapy; Z95.5 Presence of coronary angioplasty implant and graft
CPT/HCPCS: 71045; 80048; 84484; 85025; 93005; 99283; A4216

== ENCOUNTER 2024-07-21 18:57 | Emergency (ER) | payer MEDICARE, OTHER, SELFPAY ==
[2024-01-02 14:04] VITALS: BMI 32.8
[2024-07-21] VITALS (7 sets, daily range): BP systolic 140–155; BP diastolic 73–85; PULSE 94–108; RESP 11–20; TEMP 36.5–36.6; O2SAT 94–100
--- NOTE | 2024-07-21 19:26 | EKG12_ITS ---
Test Reason : CP Blood Pressure : / mmHG Vent. Rate : 101 BPM Atrial Rate : 101 BPM P-R Int : 174 ms QRS Dur : 090 ms QT Int : 358 ms P-R-T Axes : 034 -58 095 degrees QTc Int : 464 ms Sinus tachycardia Left anterior fascicular block Moderate voltage criteria for LVH, may be normal variant ( R in aVL , [place] product ) Possible Lateral infarct , age undetermined Abnormal ECG Confirmed by TRACI CUNNINGHAM, LOUIS ([id number]), multimedia editor CHARLY GONZALEZ ([id number]) on 07/23/2024 6:44:12 AM Referred By: EVIE Confirmed By:LOUIS AVILES MD
--- NOTE | 2024-07-21 19:35 | RAD_ITS ---
STUDY: X-RAY CHEST REASON FOR EXAM: Female, 84 years old. chest pain TECHNIQUE: Single frontal view of the chest. COMPARISON: Chest x-ray February 15, 2024 FINDINGS: Surgical clips left axilla. Interstitial infiltrates unchanged in the right. There is no demonstrated pleural abnormality. Normal size heart. Normal mediastinum and amy. Normal visualized pulmonary arteries. Normal visualized aortic arch and descending thoracic aorta. Mild dextroconvex scoliosis. Normal visualized ribs, clavicles, and shoulders. There is no demonstrated abnormality of the visualized soft tissue structures of the upper abdomen. RAD/Chest 1 View (Portable) IMPRESSION: Mild interstitial infiltrates on the right unchanged. Electronically Signed: Adam Pulido MD at 20:07 EDT ,
--- NOTE | 2024-07-21 19:38 | ED.VIS.CHEST ---
HPI History of Present Illness Chief Complaint: Chest Pain Detail of Chief Complaint: Chest pain rating to both arms. At rest. Informant: patient Onset/Context/Timing Onset: Today Activity at onset: sudden Timing: Continuous Quality: Positive for Heaviness Location: Substernal Current Severity: Mild Maximum Severity: Moderate Worsened By: Nothing Relieved By: Nothing Associated Symptoms: Positive for Nausea and Dyspnea; Negative for Vomiting, Diaphoresis, Cough, Fever, Lightheadedness, Acid Reflux or Palpitations Narrative Narrative: 84-year-old female history of CAD with prior MS with cardiac stents. On aspirin only. No other anticoagulants. States that tonight while eating dinner around 530 she started getting tingling to both arms and then developed midsternal chest pain. She describes it as a pressure. No change with position. She took a nitro at home without any relief squad gave her nitro and aspirin without any relief. She is on it first came on she did get mildly short of breath and nauseated with it no diaphoresis. She denies any recent exertional dyspnea or exertional chest pain. Prior Similar Symptoms: Yes Recent Illness/Hospitalization: No CVD Risk Factors: Negative for Diabetes or Smoking PE Risk Factors: Negative for Recent Travel/Surgery, Recent Immobilization, Prior DVT or PE or OCP + Smoking + >/=35 TAD Risk Factors: Negative for Marfan's Syndrome, Hypertension or Family History [facility] Medical History CAD (coronary artery disease) Breast cancer Anxiety and depression Hypertension Home Medications ?Medication ?Instructions ?Recorded ?Last Taken ?Type alprazolam 0.25 mg tablet 0.125 - 0.25 mg PO BID PRN Anxiety 10/14/15 01/21/24 History amlodipine 5 mg tablet 5 mg PO DAILY blood prssure 10/14/15 01/27/24 History timolol maleate 0.5 % eye drops 1 drp BID glaucoma 10/14/15 01/27/24 History ergocalciferol (vitamin D2) 1,250 50,000 unit PO UD supplement 01/26/16 01/22/24 History mcg (50,000 unit) capsule (Vitamin D2) fluticasone furoate 200 1 puff inhalation DAILY lungs 11/03/18 01/27/24 History mcg-vilanterol 25 mcg/dose inhalation powder (Breo Ellipta) omeprazole 40 mg capsule,delayed 40 mg PO DAILY gerd 11/03/18 01/27/24 History release penicillin V potassium 500 mg 500 mg PO DAILY prophylaxis 09/12/20 01/27/24 History tablet venlafaxine 150 mg 150 mg PO DAILY depression 09/12/20 01/27/24 History capsule,extended release 24 hr albuterol sulfate 90 mcg/actuation 2 inh inhalation Q4H PRN Wheezing 08/31/22 08/30/22 History aerosol inhaler fexofenadine 180 mg tablet 180 mg PO DAILY allergies 08/31/22 01/27/24 History fluticasone propionate 50 2 spray intranasal DAILY PRN 08/31/22 2 Days Ago History mcg/actuation nasal allergies ~08/29/22 spray,suspension aspirin 81 mg chewable tablet 81 mg PO DAILYCM #0 tabs 11/06/23 01/27/24 Rx nitroglycerin 0.4 mg sublingual 0.4 mg sublingual Q5M PRN Chest 11/06/23 Unknown Rx tablet pain #10 tabs atorvastatin 40 mg tablet 40 mg PO QHS #90 tabs 12/09/23 01/26/24 Rx clopidogrel 75 mg tablet 75 mg PO DAILY #90 tabs 12/09/23 01/27/24 Rx isosorbide mononitrate 30 mg 30 mg PO DAILY #30 tabs 12/09/23 01/27/24 Rx tablet,extended release 24 hr metoprolol tartrate 25 mg tablet 25 mg PO BID #180 tabs 12/09/23 01/27/24 Rx albuterol sulfate 2.5 mg/3 mL 2.5 mg inhalation BID 07/21/24 Unknown History (0.083 %) solution for nebulization Allergy/AdvReac Type Severity Reaction Status Date / Time hydrogen peroxide AdvReac Other Verified 07/21/24 18:59 oxycodone HCl (From Percodan) AdvReac Nausea Verified 07/21/24 18:59 oxycodone terephthalate AdvReac Nausea Verified 07/21/24 18:59 (From Percodan) Sulfa (Sulfonamide AdvReac Nausea/Vom/ Verified 07/21/24 18:59 Antibiotics) Diarrhea Surgical History Stented coronary artery (~11/05/23) Hx of mastectomy Hx of tonsillectomy Hx of cholecystectomy Hx of appendectomy H/O: hysterectomy Social History Smoking Status: Never smoker ROS ROS ED ROS Narrative Chest pain this evening. Denies any recent illness. Denies abdominal pain. Denies any recent exertional dyspnea or exertional chest pain. Constitutional Constitutional ED: Denies chills or fever(s) Eyes Eyes: Reports none ENT ENT ED: Denies ear pain Cardiovascular Cardiovascular: Reports as per HPI and chest pain; Denies palpitations or racing heartbeat Respiratory/Chest Respiratory/Chest: Reports dyspnea; Denies cough Gastrointestinal Gastrointestinal: Reports nausea; Denies abdominal pain, constipation, diarrhea, melena or vomiting Genitourinary Genitourinary ED: Denies dysuria or hematuria Musculoskeletal Musculoskeletal: Denies arthralgias Integumentary Denies abscess Neurologic Neurologic: Denies headache(s) Psychiatric Psychiatric: Denies anxiety Endocrine Endocrinology: Denies cold intolerance Hematologic/Lymphatic Hematologic/Lymphatic: Denies easy bleeding Allergic/Immunologic Allergic/Immunologic ED: Denies mouth swelling EXAM Physical Exam Narrative Exam Narrative: 84-year-old female no acute distress vital signs stable afebrile. Pulse ox 94% on room air no hypoxia. H EENT exam unremarkable. Neck nontender no JVD. Lungs clear to auscultation bilaterally. Heart regular rhythm no murmur. Rate about 100. Chest wall and ribs minimal discomfort of the chest with palpation. No localizing area and no redness or bruising. No crepitance. Abdomen soft nontender. Normal bowel sounds no peritoneal signs. No right upper quadrant tenderness. Moving all 4 extremities. 5 of 5 managing supervisor strength. Dorsi plantarflexion intact. Calves are nontender no edema or cords. Equal symmetrical radial pulses. Back nontender. Neurologically patient awake alert no focal motor deficits. Const Vital Signs: 07/21/24 18:57 07/21/24 19:29 07/21/24 19:57 Temperature 97.9 F Temperature Source Temporal Pulse Rate 108 H 98 Respiratory Rate 11 L 18 Blood Pressure 146/78 H 147/75 H Blood Pressure Mean 100 99 Pulse Ox 94 94 96 Oxygen Delivery Method Room Air Room Air Room Air 07/21/24 20:00 07/21/24 21:00 07/21/24 22:00 Temperature Temperature Source Pulse Rate 96 96 96 Respiratory Rate 18 20 H 20 H Blood Pressure 155/85 H 154/79 H 140/73 H Blood Pressure Mean 108 104 95 Pulse Ox 97 100 95 Oxygen Delivery Method Room Air Room Air Room Air Positive well nourished and well developed; Negative for cachectic, contractures or unkempt General Appearance ED: well developed and NAD; Negative for unkempt, cachectic, contractures or pallor Nutritional Appearance: Negative for cachectic HEENT Reports moist mucous membranes; Denies dry mucous membranes normocephalic and atraumatic; Negative for trauma or tenderness Mouth ED: No dry mucous membranes Mouth: No dry mucous membranes Eyes PERRL and EOMs intact bilaterally General Eye ED: Negative for pale conjunctiva or scleral icterus Neck no lymphadenopathy, supple and no JVD General: Negative for tenderness Chest Wall inspection of chest normal and palpation of chest normal Chest: Negative for tenderness Resp normal respiratory effort and clear to auscultation bilaterally Effort and Inspection: Negative for respiratory distress Auscultation: Negative for rales, rhonchi, wheezes or diminished lung sounds Cardio regular rate, regular rhythm, S1 normal heart sound, S2 normal heart sound and no murmurs Rate: Negative for bradycardia or tachycardic Rhythm: Negative for abnormal rhythm Peripheral Pulses: pulses 2+ throughout GI normal to inspection, nondistended, normoactive bowel sounds, soft to palpation, non-tender, non-distended and no masses Palpation: Negative for splenomegaly, mass or other Back/Spine no CVA tenderness and no thoracic nor lumbar tenderness General Back: Negative for CVA tenderness Cervical Spine: Negative for cervical spine tenderness Extremity normal to inspection General Extremety ED: Negative for edema, pulses abnormal or tenderness General Extremity: Negative for edema or pulses abnormal Neuro oriented x3 and CN's II-XII intact bilaterally Sensorium / Orientation: awake, alert, oriented to person, oriented to place and oriented to time; Negative for confused, lethargic or stuporous Motor Exam: strength 5/5 throughout Psych mental status grossly normal Appearance: Negative for unkempt Attitude: No agitated Mood & Affect: Negative for depressed, anxious or tearful Skin no rashes or lesions noted and no wounds General Skin Exam: Negative for jaundice or pallor Rashes: No rashes noted Trauma: Negative for abrasion or laceration Heart Score History: Moderately Suspicious ECG: Normal Age: >/= 65 years Risk Factors: >/= 3 Risk Factors or History of CAD Troponin: </= Normal Limit Score: 5 MDM MDM MDM Narrative Medical decision making narrative: 84-year-old female known CAD with stents that had nonexertional chest pain 10 night after eating dinner. Exam benign. No reproducible abdominal pain. She undergo a cardiac workup. History & Record Review Discussion w/independent historian: Patient Additional record(s) reviewed:: Prior inpatient record, Prior outpatient record, Prior ED visit and Prior labs Lab Data Attestation: I reviewed the patient's lab results. Lab results narrative: CBC normal. White count 7. H&H 14 and 43. Platelets 363. Electrolytes show gap 6. BUN and creatinine 25 and 1.1. Glucose 185. Initial troponin 15. 2-hour troponin 18. Chest x-ray chronic changes unchanged from prior. Labs: Laboratory Results - last 24 hr 07/21/24 07/21/24 19:04 21:56 WBC 7.9 RBC 4.93 Hgb 14.1 Hct 43.6 MCV 88.4 MCH 28.6 MCHC 32.3 RDW Std Deviation 44.3 H RDW Coeff of Henry 13.7 Plt Count 363 MPV 10.3 Immature Gran % (Auto) 0.400 Neut % (Auto) 59.6 Lymph % (Auto) 25.4 [place] % (Auto) 8.2 Eos % (Auto) 5.1 H Baso % (Auto) 1.3 H Absolute Neuts (auto) 4.7 Absolute Lymphs (auto) 2.01 Nucleated RBC % 0 Sodium 139 Potassium 3.7 Chloride 107 Carbon Dioxide 26.0 Anion Gap 6 BUN 25 H Creatinine 1.19 H Est GFR (MDRD) Af Amer 56 L Est GFR (MDRD) Non-Af 46 L BUN/Creatinine Ratio 21.0 H Glucose 185 H Calcium 9.0 Troponin I High Sens 15 18 Radiography Chest X-Ray - ED: 1 View, Read by ED Physician, Read by Radiologist, Heart, Lungs, Mediastinum, Bony Structures, No Acute Disease and Chronic Changes Diagnostic Testing: Clinical Impression(s) from Imaging Studies Chest X-Ray 07/21/24 19:35 IMPRESSION: Mild interstitial infiltrates on the right unchanged. Electronically Signed: Adam Pulido MD at 20:07 EDT , Chest x-ray, portable, single view interpreted both by myself and radiologist shows chronic changes. Chronic right sided density. I do not think that is an acute pneumonia. Seen on prior chest x-ray. Unchanged. Rhythm Strip Rhythm Strip: Sinus Tach Rate: 101 Ectopy: None EKG Initial EKG: Attestation: I personally reviewed and interpreted this EKG as follows: Interpretation: Sinus Rhythm, No Acute Injury Pattern and Sinus Tachycardia Comments: Sinus tachycardia rate of 101 no acute signs of MS or ischemia. No ST elevation or significant depression 1. Discharge Plan Triage Chief Complaint: Chest Pain ED Provider: Ankush Torres Dx/Rx/DC Orders Prescriptions: No Action clopidogrel 75 mg tablet 75 mg PO DAILY Qty: 90 3RF atorvastatin 40 mg tablet 40 mg PO QHS Qty: 90 3RF metoprolol tartrate 25 mg tablet 25 mg PO BID Qty: 180 3RF isosorbide mononitrate 30 mg tablet extended release 24 hr 30 mg PO DAILY Qty: 30 11RF amlodipine 5 MG tablet 5 mg PO DAILY timolol maleate 1 DROP drops 1 drp Each Eye BID alprazolam 0.25 MG tablet 0.125 - 0.25 mg PO BID PRN (Reason: Anxiety) Patient Comments: has not been using recently (07/21/2024) ergocalciferol (vitamin D2) [Vitamin D2] 50,000 UNIT capsule 50,000 unit PO UD Patient Comments: TAKES EVERY OTHER WEEK ON TUESDAY Rx Instructions: every other week ON TUESDAY omeprazole 40 MG capsule,delayed release(DR/EC) 40 mg PO DAILY fluticasone furoate-vilanterol [Breo Ellipta] 1 EACH blister with device 1 puff inhalation DAILY Patient Comments: inhale 1 puff once daily, use with good oral care venlafaxine 150 MG capsule,extended release 24hr 150 mg PO DAILY penicillin V potassium 500 MG tablet 500 mg PO DAILY fexofenadine 180 mg tablet 180 mg PO DAILY albuterol sulfate 90 mcg/actuation HFA aerosol inhaler 2 inh INHALATION Q4H PRN (Reason: Wheezing) Patient Comments: inhale 2 puffs by mouth every 4 hours if needed for wheezing or shortness of breath fluticasone propionate 50 mcg/actuation spray,suspension 2 spray INTRANASAL DAILY PRN (Reason: allergies) nitroglycerin 0.4 mg Tablet, Sublingual 0.4 mg sublingual Q5M PRN (Reason: Chest pain) Qty: 10 0RF aspirin 81 mg Tablet,Chewable 81 mg PO DAILYCM Qty: 0 0RF albuterol sulfate 2.5 mg /3 mL (0.083 %) solution for nebulization 2.5 mg inhalation BID Primary Care Provider: Kristal Gutierrez Referrals: Kristal Gutierrez MD [Primary Care Provider] - Print Language: Vietnamese
[2024-07-21 19:40] LABS: Absolute Lymphocyte Count 2.01 X10^3/uL (0.83-4.51); Absolute Neutrophil Count 4.7 X10^3/uL (2.0-7.7); Basophil% 1.3 % (0-1); Eosinophils% 5.1 % (0-5); Hematocrit 43.6 % (37-47); Hemoglobin 14.1 g/dL (12.0-15.0); Lymphocyte # 2.01 X10^3/ul (0.83-4.51); Lymphocyte % 25.4 % (19-41); Mean Corp Hgb Conc 32.3 g/dL (32-36); Mean Corpuscular Hgb 28.6 pg (27.0-32.0); Mean Corpuscular Volume 88.4 fL (81-99); Mean Platelet Vol. 10.3 fl (6.2-12.0); Monocyte# 0.65 X10^3/uL; Monocyte% 8.2 % (0-10); NRBC Flagged by Analyzer 0 % (0-5); Neutrophil # 4.72 X10^3/uL (2.7-7.7); Neutrophil % 59.6 % (47-70); Platelet Count 363 K/mm3 (150-450); RBC Distribution Width CV 13.7 % (11.6-14.6); RBC Distribution Width SD 44.3 fl (35.1-43.9); Red Blood Count 4.93 M/mm3 (4.2-5.4); White Blood Count 7.9 K/mm3 (4.4-11.0)
[2024-07-21 19:59] LABS: Anion Gap 6 (5-15); BUN 25 mg/dL (7-18); Chloride 107 mmol/L (98-107); Creatinine, Serum 1.19 mg/dL (0.55-1.02); EST Glomerular Filtration Rate 46 mL/min (>60); Est Glom Filt Rate - Afr Amer 56 mL/min (>60); Glucose 185 mg/dL (74-106); Potassium 3.7 mmol/L (3.5-5.1); Sodium Level 139 mmol/L (136-145); Troponin-I HS (w/2H Reflex) 15 pg/mL (3.0-54.0)
[2024-07-21 21:37] LABS: Reflex Troponin-HS? (from REC) Y
[2024-07-21 22:21] LABS: Troponin-I HS 18 pg/mL (3.0-54.0)
== END 2024-07-21 22:53 | disposition home or self-care (01) ==
PROVIDERS: Emergency Provider Emergency Medicine; PCP Internal Medicine; Visit Provider Emergency Medicine
DX: R07.2 Precordial pain (principal); I25.10 Atherosclerotic heart disease of native coronary artery without angina pectoris; R11.0 Nausea; I10 Essential (primary) hypertension; Z79.82 Long term (current) use of aspirin; Z79.02 Long term (current) use of antithrombotics/antiplatelets; Z79.899 Other long term (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 therapy; I25.2 Old myocardial infarction; Z95.5 Presence of coronary angioplasty implant and graft
CPT/HCPCS: 71045; 80048; 84484; 85025; 93005; 99283; A4216

== ENCOUNTER 2025-04-18 10:41 | Emergency (ER) | payer MEDICARE, OTHER, SELFPAY ==
[2024-01-02 14:04] VITALS: BMI 32.8
[2025-04-18] VITALS (14 sets, daily range): BP systolic 109–148; BP diastolic 61–75; PULSE 64–77; RESP 16–26; TEMP 36.6–36.8; O2SAT 94–100; BMI 32.1
--- NOTE | 2025-04-18 10:46 | EKG12_ITS ---
Test Reason : Blood Pressure : */* mmHG Vent. Rate : 65 BPM Atrial Rate : 65 BPM P-R Int : 184 ms QRS Dur : 94 ms QT Int : 430 ms P-R-T Axes : * 235 100 degrees QTcB Int : 447 ms Normal sinus rhythm Right superior axis deviation Pulmonary disease pattern Abnormal ECG Confirmed by AXEL CUNNINGHAM, JAMES ([id number]), newspaper photo editor GELY PETERSON ([id number]) on 04/22/2025 6:26:25 AM Referred By: Confirmed By: JAMES REYNA MD
--- NOTE | 2025-04-18 10:59 | ED.VIS.CHEST ---
HPI History of Present Illness Chief Complaint: Chest Pain Narrative Narrative: Chief complaint and HPI: Chest/epigastric abdominal pain, generalized weakness. History taken by patient as well as medical record. 84-year-old female with past medical history of CAD, status post PCI on Plavix, HTN,anxiety/depression, history of breast cancer with mastectomy presents for evaluation of chest/epigastric abdominal pain. Patient states shortly after waking up today she developed generalized weakness. States shortly after eating breakfast she developed chest pain/burning in her mid sternum/epigastrium region. EMS gave 1 nitro and 4 aspirin prior to arrival. Patient states this is not helped her pain. She denies any fever, chills, shortness of breath, nausea, vomiting, dysuria. At baseline has a chronic cough. Review of systems: See HPI Medications: As listed on the chart Allergies: As listed on the chart PFSH: Per chart Vital signs: As listed on the chart. Reviewed. Physical exam: Gen: A&O x3, NAD Head: Normocephalic, atraumatic Eyes: No sclera icterus, conjunctiva clear ENT: Moist mucous membranes Neck: Trachea midline, No JVD CV: RRR, no murmurs, no peripheral edema Resp: Lungs CTA BL, no w/r/c GI: Abd soft, non-distended, nontender, no r/r/g Musc: Full ROM, no deformity Skin: Warm, dry Neuro: Alert, oriented, grossly intact, sensation intact Psych: Cooperative, appropriate mood and affect [facility] Medical History CAD (coronary artery disease) Breast cancer Anxiety and depression Hypertension Home Medications ?Medication ?Instructions ?Recorded ?Last Taken ?Type amlodipine 5 mg tablet 5 mg PO DAILY blood prssure 10/14/15 04/18/25 History timolol maleate 0.5 % eye drops 1 drp BID glaucoma 10/14/15 04/18/25 History ergocalciferol (vitamin D2) 1,250 50,000 unit PO UD supplement 01/26/16 04/14/25 History mcg (50,000 unit) capsule (Vitamin D2) omeprazole 40 mg capsule,delayed 40 mg PO DAILY gerd 11/03/18 01/27/24 History release penicillin V potassium 500 mg 500 mg PO DAILY prophylaxis 09/12/20 04/18/25 History tablet venlafaxine 150 mg 150 mg PO DAILY depression 09/12/20 01/27/24 History capsule,extended release 24 hr albuterol sulfate 90 mcg/actuation 2 inh inhalation Q4H PRN Wheezing 08/31/22 08/30/22 History aerosol inhaler fexofenadine 180 mg tablet 180 mg PO DAILY allergies 08/31/22 04/18/25 History fluticasone propionate 50 2 spray intranasal DAILY PRN 08/31/22 2 Days Ago History mcg/actuation nasal allergies ~08/29/22 spray,suspension aspirin 81 mg chewable tablet 81 mg PO DAILYCM #0 tabs 11/06/23 04/18/25 Rx nitroglycerin 0.4 mg sublingual 0.4 mg sublingual Q5M PRN Chest 11/06/23 04/18/25 Rx tablet pain #10 tabs atorvastatin 40 mg tablet 40 mg PO QHS #90 tabs 12/09/23 04/17/25 Rx clopidogrel 75 mg tablet 75 mg PO DAILY #90 tabs 12/09/23 04/18/25 Rx metoprolol tartrate 25 mg tablet 25 mg PO BID #180 tabs 12/09/23 04/18/25 Rx albuterol sulfate 2.5 mg/3 mL 2.5 mg inhalation BID 07/21/24 Unknown History (0.083 %) solution for nebulization isosorbide mononitrate 30 mg 30 mg PO DAILY #30 tabs 11/08/24 04/18/25 Rx tablet,extended release 24 hr cephalexin 500 mg capsule 500 mg PO Q12 7 days #14 CAPSULES 04/18/25 Unknown Rx fluticasone furoate 100 1 ea inhalation DAILY 04/18/25 04/18/25 History mcg-vilanterol 25 mcg/dose inhalation powder (Breo Ellipta) Allergy/AdvReac Type Severity Reaction Status Date / Time hydrogen peroxide AdvReac Other Verified 04/18/25 10:45 oxycodone HCl (From Percodan) AdvReac Nausea Verified 04/18/25 10:45 oxycodone terephthalate AdvReac Nausea Verified 04/18/25 10:45 (From Percodan) Sulfa (Sulfonamide AdvReac Nausea/Vom/ Verified 04/18/25 10:45 Antibiotics) Diarrhea Surgical History Stented coronary artery (~11/05/23) Hx of mastectomy Hx of tonsillectomy Hx of cholecystectomy Hx of appendectomy H/O: hysterectomy Social History (Updated 04/18/25 @ 10:45 by Osiris Moulton) household members: spouse current occupational status: retired Smoking Status: Never smoker EXAM Physical Exam Const Vital Signs: 04/18/25 10:41 04/18/25 10:45 04/18/25 11:45 Temperature 98.2 F Temperature Source Oral Pulse Rate 67 69 Respiratory Rate 16 24 H Respiratory Effort Normal Non-Labored Blood Pressure 109/73 128/61 H Blood Pressure Mean 85 75 Pulse Ox 97 97 Oxygen Delivery Method Room Air 04/18/25 11:45 04/18/25 11:48 04/18/25 12:00 Temperature Temperature Source Pulse Rate 64 67 Respiratory Rate 21 H 26 H Respiratory Effort Blood Pressure 128/61 H 136/67 H Blood Pressure Mean 75 88 Pulse Ox 96 100 Oxygen Delivery Method Room Air 04/18/25 12:15 04/18/25 12:30 04/18/25 12:45 Temperature Temperature Source Pulse Rate 67 66 65 Respiratory Rate 24 H 22 H 26 H Respiratory Effort Blood Pressure 130/62 H Blood Pressure Mean 81 Pulse Ox 100 100 100 Oxygen Delivery Method Room Air Room Air 04/18/25 13:00 04/18/25 13:15 04/18/25 13:30 Temperature Temperature Source Pulse Rate 64 65 68 Respiratory Rate 24 H 18 16 Respiratory Effort Blood Pressure Blood Pressure Mean Pulse Ox 94 96 Oxygen Delivery Method Room Air 04/18/25 13:45 04/18/25 14:00 04/18/25 14:15 Temperature Temperature Source Pulse Rate 69 77 67 Respiratory Rate 18 20 H 20 H Respiratory Effort Blood Pressure 148/75 H Blood Pressure Mean 99 Pulse Ox 97 98 97 Oxygen Delivery Method Room Air MDM MDM MDM Narrative Medical decision making narrative: 84-year-old female with past medical history of CAD, status post PCI on Plavix, HTN,anxiety/depression, history of breast cancer with mastectomy presents for evaluation of chest/epigastric abdominal pain. Patient states shortly after waking up today she developed generalized weakness. Then after eating breakfast developed chest pain/burning in her mid sternum/epigastrium region. Was given nitro and aspirin prior to arrival via EMS without improvement. Differential diagnosis includes but is not limited to GERD, gastritis, ACS, electrolyte abnormality, UTI, suspect less likely pneumonia. Tylenol and Pepcid ordered. On chart review, patient's last cardiac catheterization was on 11/05/2023 which demonstrated 90% stenosis in her mid left circumflex and 70% stenosis in her right coronary artery. She received PCI. She had an echocardiogram that showed an EF of 45 to 50%. CBC without leukocytosis or anemia. Coagulation panel unremarkable. D-dimer unremarkable. CMP unremarkable for electrolyte abnormality or SALVATORE. No transaminitis. Magnesium unremarkable. Lipase unremarkable. BNP unremarkable. Urine is negative for nitrites although positive for leuk esterase and WBCs, this is consistent with pyuria. No bacteria. However will send for culture and treat given patient's weakness as this may be early UTI. Patient given Keflex here. Troponin 17 and 13. Delta negative. On reevaluation, patient states her chest pain has resolved with the Pepcid. I suspect her pain may have been secondary to acid reflux/GERD as it improved with Pepcid and occurred after eating. She also described as burning and more in the epigastric region. Her weakness may be secondary to early UTI. Patient and family updated of all the results and the plan for discharge home. Follow-up with PCP. Keflex prescribed for her UTI. She confirmed understand the plan. Patient stable to discharge home. EKG: Interpreted by me/EM physician: EKG shows normal sinus rhythm with a heart rate of 65. No acute ischemic changes. There are artifact present on the EKG. Diagnostic: Interpreted by me/EM physician: Chest x-ray was personally reviewed and interpreted by me, ED physician. Shows chronic lung changes. This was precompared to previous in 2023. No cardiomegaly. No effusion. No consolidation. Per radiology progressive bronchiectasis with mucous plugging on the right. Impression: 1. Chest pain, unclear etiology although suspect possible Acid reflux/GERD 2. Pyuria, concern for early UTI Lab Data Labs: Laboratory Results - last 24 hr 04/18/25 04/18/25 04/18/25 11:14 12:25 13:05 WBC 7.9 RBC 5.22 Hgb 14.0 Hct 43.0 MCV 82.4 MCH 26.8 L MCHC 32.6 RDW Std Deviation 49.4 H RDW Coeff of [place] 16.6 H Plt Count 291 MPV 9.8 Immature Gran % (Auto) 0.500 Neut % (Auto) 75.7 H Lymph % (Auto) 14.2 L [place] % (Auto) 8.7 Eos % (Auto) 0.4 Baso % (Auto) 0.5 Absolute Neuts (auto) 6.0 Absolute Lymphs (auto) 1.13 Nucleated RBC % 0 PT 13.8 INR 1.0 APTT 25.9 D-Dimer Quant (PE/DVT) < 0.27 L Sodium 137 Potassium 3.6 Chloride 103 Carbon Dioxide 22.1 Anion Gap 11 BUN 17 Creatinine 1.02 Estim Creat Clear Calc 36.40 L Est GFR (MDRD) Non-Af 55 L BUN/Creatinine Ratio 17.1 Glucose 182 H Calcium 8.7 Magnesium 1.9 Total Bilirubin 0.42 AST 20 ALT 21 Alkaline Phosphatase 113 H Troponin T High Sens 17 H Troponin T Hi Sens 2 Hr 13 NT pro BNP II 1011 Total Protein 6.2 Albumin 3.5 Globulin 2.7 Albumin/Globulin Ratio 1.3 Lipase 43 Urine Color Yellow Urine Clarity Clear Urine pH 6.0 Ur Specific [place] 1.015 Urine Protein 30 H Urine Glucose (UA) Normal Urine Ketones Negative Urine Occult Blood Negative Urine Nitrite Negative Urine Bilirubin Negative Urine Urobilinogen Normal Ur Leukocyte Esterase 500 H Urine RBC 0 SEEN Urine WBC 10-25 SEEN Ur Squamous Epith Cells 0-5 SEEN Urine Bacteria RARE Hyaline Casts 5-10 SEEN Urine Mucus 0 SEEN Radiography Diagnostic Testing: Clinical Impression(s) from Imaging Studies Chest X-Ray 04/18/25 11:40 IMPRESSION: 1. Progressive bronchiectasis with mucous plugging on the right. 2. Findings consistent with hypertension. 3. Other findings as noted. Reading Location: [id number] Discharge Plan Triage Chief Complaint: Chest Pain ED Provider: Ayush Pressley Dx/Rx/DC Orders Clinical Impression: Chest pain, Acute UTI Instructions: Urinary Tract Infections in Women, Chest Pain O Prescriptions: New cephalexin 500 mg capsule 500 mg PO Q12 7 Days Qty: 14 0RF No Action clopidogrel 75 mg tablet 75 mg PO DAILY Qty: 90 3RF atorvastatin 40 mg tablet 40 mg PO QHS Qty: 90 3RF metoprolol tartrate 25 mg tablet 25 mg PO BID Qty: 180 3RF amlodipine 5 MG tablet 5 mg PO DAILY timolol maleate 1 DROP drops 1 drp Each Eye BID ergocalciferol (vitamin D2) [Vitamin D2] 50,000 UNIT capsule 50,000 unit PO UD Rx Instructions: every other week ON TUESDAY omeprazole 40 MG capsule,delayed release(DR/EC) 40 mg PO DAILY Patient Comments: PT UNSURE IF SHE TAKES THIS MEDICATION I GUESS venlafaxine 150 MG capsule,extended release 24hr 150 mg PO DAILY Patient Comments: PT TAKES NEEDED IN THE SUMMER penicillin V potassium 500 MG tablet 500 mg PO DAILY fexofenadine 180 mg tablet 180 mg PO DAILY albuterol sulfate 90 mcg/actuation HFA aerosol inhaler 2 inh INHALATION Q4H PRN (Reason: Wheezing) Patient Comments: inhale 2 puffs by mouth every 4 hours if needed for wheezing or shortness of breath fluticasone propionate 50 mcg/actuation spray,suspension 2 spray INTRANASAL DAILY PRN (Reason: allergies) nitroglycerin 0.4 mg Tablet, Sublingual 0.4 mg sublingual Q5M PRN (Reason: Chest pain) Qty: 10 0RF aspirin 81 mg Tablet,Chewable 81 mg PO DAILYCM Qty: 0 0RF albuterol sulfate 2.5 mg /3 mL (0.083 %) solution for nebulization 2.5 mg inhalation BID fluticasone furoate-vilanterol [Breo Ellipta] 100-25 mcg/dose blister with device 1 ea inhalation DAILY isosorbide mononitrate 30 mg tablet extended release 24 hr 30 mg PO DAILY Qty: 30 11RF Primary Care Provider: Kristal Gutierrez Referrals: Kristal Gutierrez MD [Primary Care Provider] - 3-5 Days Activity Restrictions/Additional Instructions: Follow-up with your primary care physician. Return back to the ED if symptoms change or worsen. No clear reason for your chest pain at this time. You received your first dose of antibiotics here in the emergency department. Take your next dose this evening. Print Language: Togolese Disposition Disposition: Home, Self Care
[2025-04-18] MEDS: Acetaminophen 325 MG Tablet 650 MG PO (11:20)
[2025-04-18] MEDS: Famotidine 200 MG/20 ML MDV 20 MG in 0.9% Normal Saline (Pres. free 8 ML 300 MG IV (11:28)
[2025-04-18 11:33] LABS: Absolute Lymphocyte Count 1.13 X10^3/uL (0.83-4.51); Basophil# 0.04 X10^3/uL; Basophil% 0.5 % (0-1); Eosinophil# 0.03 X10^3/uL; Eosinophils% 0.4 % (0-5); Lymphocyte # 1.13 X10^3/ul (0.83-4.51); Lymphocyte % 14.2 % (19-41); Mean Corp Hgb Conc 32.6 g/dL (32-36); Mean Corpuscular Hgb 26.8 pg (27.0-32.0); Mean Corpuscular Volume 82.4 fL (81-99); Mean Platelet Vol. 9.8 fl (6.2-12.0); Monocyte# 0.69 X10^3/uL; Monocyte% 8.7 % (0-10); NRBC Flagged by Analyzer 0 % (0-5); Neutrophil % 75.7 % (47-70); Platelet Count 291 K/mm3 (150-450); RBC Distribution Width CV 16.6 % (11.6-14.6); RBC Distribution Width SD 49.4 fl (35.1-43.9); Red Blood Count 5.22 M/mm3 (4.2-5.4); White Blood Count 7.9 K/mm3 (4.4-11.0)
--- NOTE | 2025-04-18 11:40 | RAD_ITS ---
PROCEDURE: CHEST PA AND LATERAL 04/18/2025 REASON FOR EXAM: CHEST PAIN TECHNIQUE: Frontal and lateral views of the chest. COMPARISON: Portable chest, 07/21/2024. FINDINGS: Multiple soft tissue nodules noted on the right. These have been shown to be mucous plugs within dilated bronchi on prior CT examination. The left lung is clear. There is cardiomegaly and aortic ectasia consistent with benign essential hypertension. 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 Status post left breast surgery and axillary lymph node dissection. The upper abdominal bowel gas pattern is normal. There are no bony abnormalities. RAD/Chest PA and Lateral IMPRESSION: 1. Progressive bronchiectasis with mucous plugging on the right. 2. Findings consistent with hypertension. 3. Other findings as noted. Reading Location: [id number]
[2025-04-18 11:43] LABS: Prothrombin Time (Protime)PT. 13.8 SECONDS (11.7-14.9)
[2025-04-18 11:44] LABS: Partial Thromboplast Time 25.9 Seconds (24.1-36.2)
[2025-04-18 12:07] LABS: D-Dimer Quantitative (DVT/PE) < 0.27 FEU/ug/m (0.27-0.49)
[2025-04-18 12:13] LABS: ALB/GLOB Ratio 1.3 RATIO (0.9-2.4); AST(SGOT) 20 U/L (<=31); Alanine Aminotransfer ALT/SGPT 21 U/L (<=34); Albumin, Serum 3.5 g/dL (3.4-4.8); Alkaline Phosphatase 113 U/L (35-104); Anion Gap 11 (5-15); BUN 17 mg/dL (4-19); BUN/Creat Ratio 17.1 RATIO (10-20); Calcium,Total 8.7 mg/dL (7.6-11.0); Carbon Dioxide 22.1 mmol/L (21.0-32.0); Chloride 103 mmol/L (98-108); Creatinine, Serum 1.02 mg/dL (0.70-1.20); EST Glomerular Filtration Rate 55 (>60); Globulin 2.7 g/dL (2.2-4.2); Glucose 182 mg/dL (70-99); Lipase 43 U/L (13-75); Magnesium 1.9 mg/dL (1.5-2.2); Potassium 3.6 mmol/L (3.3-5.1); Pro- Brain NATRIURETIC PEPTIDE 1011 pg/mL (<=1800); Protein, Total 6.2 g/dL (5.9-8.4); Sodium Level 137 mmol/L (133-145); Total Bilirubin 0.42 mg/dL (0.00-1.30); Troponin T High Sensitivity 17 ng/L (<=14)
[2025-04-18 12:42] LABS: Mucous, Urine 0 SEEN /hpf (<or=2+); Red Blood Cells-Urine 0 SEEN /hpf (0-5)
[2025-04-18 12:47] LABS: Color, Urine Yellow (Yellow); Glucose, Dipstick Normal (Normal); Ketone-Dipstick Negative (Negative); Leukocyte Esterase-Dipstick 500 /ul (Negative); Nitrite-Dipstick Negative (Negative); Occult Blood-Urine Negative /ul (Negative); Protein-Dipstick 30 mg/dl (Negative); Specific Gravity, Urine 1.015 (1.002-1.030); Urine Bilirubin Dipstick Negative (Negative); Urine Clarity Clear (Clear); Urine Urobilinogen Normal (Normal)
[2025-04-18 13:02] LABS: White Blood Cells 10-25 SEEN /hpf (0-5)
[2025-04-18 13:04] LABS: Bacteria RARE /hpf (None Seen); Squamous Epithelial Cells - UA 0-5 SEEN /hpf (5-10)
[2025-04-18 13:05] LABS: Hyaline Cast 5-10 SEEN /lpf (0-5)
[2025-04-18] MEDS: Cephalexin 250 MG Capsule 500 MG PO (13:28)
[2025-04-18 14:12] LABS: Troponin T High Sens 2 HR 13 ng/L (<=14)
== END 2025-04-18 14:50 | disposition home or self-care (01) ==
PROVIDERS: Emergency Provider Surgery; PCP Internal Medicine; Visit Provider Surgery
DX: R07.9 Chest pain, unspecified (principal); R05.3 Chronic cough; N39.0 Urinary tract infection, site not specified; I10 Essential (primary) hypertension; R53.1 Weakness; I25.10 Atherosclerotic heart disease of native coronary artery without angina pectoris; K21.9 Gastro-esophageal reflux disease without esophagitis; F32.A Depression, unspecified; F41.9 Anxiety disorder, unspecified; Z79.01 Long term (current) use of anticoagulants; Z79.82 Long term (current) use of aspirin; Z79.899 Other long term (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 therapy; Z85.3 Personal history of malignant neoplasm of breast
CPT/HCPCS: 71046; 80053; 81001; 83690; 83735; 83880; 84484; 85025; 85379; 85610; 85730; 87086; 87088; 93005; 96374; 99285; A4216

== ENCOUNTER → 2025-04-30 | Outpatient (CLI) | payer MEDICARE, OTHER, SELFPAY ==
[2024-01-02 14:04] VITALS: BMI 32.8
[2025-04-30 12:23] LABS: Cholesterol 115 mg/dL (<=200); High Density Lipoprotein 49 mg/dL; Low Density Lipoprotein Calc. 27 mg/dL; Triglycerides 197 mg/dL; Very Low Density Lipoprotein 39 mg/dL (5-40); cholesterol:hdl ratio screen 2.36
== END | disposition home or self-care (01) ==
LOC: LAB 10:42
PROVIDERS: PCP Internal Medicine; Referring Provider Student in an Organized Health Care Education/Training Program; Visit Provider Student in an Organized Health Care Education/Training Program
DX: I25.10 Atherosclerotic heart disease of native coronary artery without angina pectoris (principal)
CPT/HCPCS: 36415; 80061

== ENCOUNTER → 2025-06-13 | Outpatient (CLI) | payer MEDICARE, OTHER, SELFPAY ==
[2024-01-02 14:04] VITALS: BMI 32.8
--- OUTSIDE RECORDS SUMMARY | 2025-06-13 06:56 | XMS RPT_ITS | CCD ---
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 Amrik Mejia Primary Care Provider Dr. Yris Zavala Attending Provider Dr. Vinod Islas Emergency Provider [phone] Dr. Lei Prado Admit Provider Unavailabl e Dr. Lei Prado Other Provider Unavailabl e Renata Larkin Other Provider Unavailable Dr. Seda Washington Other Provider Unavailable Dr. Jen Lindsay Other Provider Dr. River Arcos Other Provider Dr. Connor Carcamo Other Provider Unavailable Dr. Maciel Abad Other Provider Dr. Basilio Rees Other Provider Dr. Vinod Moreno Other Provider Dr. Yris Zavala Other Provider Dr. Juan Burciaga Other Provider Dr. Francisco Sotomayor Other Provider Dr. Annabelle Sandoval Other Provider Dr. Gege Brewer Other Provider Dr. Kee Miller Other Provider Dr. Sam Oswald Other Provider Dr. Manuel Owen Other Provider [phone] Dr. Miles Ellis Other Provider Roof EVENT PLANNING INTERN, EVENT PLANNING INTERN-C Raj Lawrence Other Provider Skyler EVENT PLANNING INTERN, EVENT PLANNING INTERN-C Renata Other Provider Carolyn SON, PA Vicky Hair Other Provider Dr. Vinod Car Attending Provider Dr. Vinod Car Other Provider Amrik Mejia MD Primary Care Provider Dr. Maciel Abad Attending Provider Dr. Vinod Car Referring Provider Dr. Juan Burciaga Other Provider Dr. Amrik Mejia Referring Provider Skyler EVENT PLANNING INTERN, EVENT PLANNING INTERN-C Renata Attending Provider Dr. Kee Miller Other Provider Dr. Amrik Mejia Primary Care Provider Dr. Yris Zavala Attending Provider Dr. Maciel Abad Attending Provider Dr. Vinod Car Referring Provider Dr. Vinod Islas Emergency Provider Dr. Lei Prado Admit Provider Unavailabl e Dr. Lei Prado Other Provider Unavailabl e Renata Larkin Other Provider Unavailable Dr. Seda Washington Other Provider Unavailable Dr. Jen Lindsay Other Provider Dr. River Arcos Other Provider Dr. Connor Carcamo Other Provider Unavailable Dr. Maciel Abad Other Provider Dr. Basilio Rees Other Provider Dr. Vinod Moreno Other Provider Dr. Yris Zavala Other Provider Dr. Juan Burciaga Other Provider Dr. Francisco Sotomayor Other Provider Dr. Annabelle Sandoval Other Provider Dr. Gege Brewer Other Provider Dr. Kee Miller Other Provider Dr. Sam Oswald Other Provider Dr. Manuel Owen Other Provider Dr. Miles Ellis Other Provider Roof EVENT PLANNING INTERN, EVENT PLANNING INTERN-C Raj Lawrence Other Provider Skyler EVENT PLANNING INTERN, EVENT PLANNING INTERN-C Renaat Other Provider Carolyn PA, PA Vicky Hair Other Provider Dr. Vinod Car Attending Provider Dr. Vinod Car Other Provider Dr. Amrik Mejia Referring Provider Skyler EVENT PLANNING INTERN, EVENT PLANNING INTERN-C Renata Attending Provider Amrik Mejia MD Primary Care Provider Martinez LABORER LABORATORY.CERTIFIED NURSING ATTENDANT, Neida Unavailable Laura LABORER LABORATORY.ASSISTANT BUYER, Miryam Unavailable Laura LABORER LABORATORY.ASSISTANT BUYER, Miryam Unavailable Larua LABORER LABORATORY.ASSISTANT BUYER, Miryam Unavailable Dr. Amrik Mejia MD Primary Care Provider Dr. Ayush Pressley DO Emergency Provider Martinez LAB[employer]ER LABORATORY.CERTIFIED NURSING ATTENDANT, Neida Unavailable AMRIK MEJIA Primary Care Unavailable AMRIK MEJIA Primary Care Unavailable AMRIK MEJIA Primary Care Unavailable QUYEN LEON Attending Unavailable AMRIK MEJIA Primary Care Unavailable AMRIK MEJIA Primary Care Unavailable QUYEN LEON Referring Unavailable AMRIK MEJIA Primary Care Unavailable AMRIK MEJIA Referring Unavailable JACKIE, AMRIK Grossman Primary Care Unavailable MIRYAM BOND Attending Unavailable TALAMPAS, AMRIK D Primary Care Unavailable MAREK PETERSEN Attending Unavailable TALAMPAS, AMRIK D Primary Care Unavailable TALAMPAS, AMRIK D Attending Unavailable TALAMPAS, AMRIK D Primary Care Unavailable TALAMPAS, AMRIK D Attending Unavailable TALAMPAS, AMRIK D Primary Care Unavailable SELF Referring Unavailable MAREK PETERSEN Attending Unavailable Huan NIÑO, Dr. Peacock Attending Provider Dr. Amrik Mejia MD Referring Provider [phone] Doni Roger Attending Provider [phone] Doni Roger Referring Provider Talampas, Amrik D Primary Care Unavailable Ankush Torres Attending Unavailable Talampas, Amrik D Primary Care Unavailable Ayush Pressley Attending Unavailabl e Talampas, Amrik D Primary Care Unavailable Talampas, Amrik D Attending Unavailable Talampas, Amrik D Referring Unavailable Doni Bhakta Attending Unavailable Talampas, Amrik D Primary Care Unavailable Doni Bhakta Attending Unavailable Estephaniaiter Doni Referring Unavailable Talampas, Amrik D Primary Care Unavailable Allergies Allergy Classification Reported Allergen(s) Allergy Type Date of Onset Reaction(s) Facility (20 sources) Amoxicillin; Translations: [AMOXICILLIN] Drug Allergy 5 GI Upset [facility] Work Phone: (20 sources) Aspirin / oxyCODONE; Translations: [OXYCODONE-ASPIRI N] Drug Allergy 5 Unknown [facility] Work Phone: (20 sources) Bacitracin / Polymyxin B; Translations: [BACITRACIN-POLYM YXIN B] Drug Allergy 5 [facility] Work Phone: (20 sources) NITROFURANTOIN, MACROCRYSTALS / Nitrofurantoin, Monohydrate; Translations: [NITROFURANTOIN MONOHYD/M-CRYST] Drug Allergy 2 Diarrhea [facility] Work Phone: (20 sources) Sulfonamides (Antibiotic); Translations: [SULFA (SULFONAMIDE ANTIBIOTICS)] Propensity to adverse reactions 5 GI Upset [facility] Work Phone: (20 sources) mentadent toothpaste [Other] Propensity to adverse reactions 5 [facility] Work Phone: (16 sources) oxyCODONE; Translations: [oxycodone HCl] Drug Allergy 0 Nausea (16 sources) oxyCODONE; Translations: [oxycodone terephthalate] Drug Allergy 0 Nausea (4 sources) PEROXIDE Propensity to adverse reactions 0 IN TOOTHEPASTE- CAUSED BLISTERS. Work Phone: (12 sources) Sulfonamides (Antibiotic) Propensity to adverse reactions 0 Nausea/Vom/Lacey rrhea (11 sources) Hydrogen Peroxide Drug Allergy 2 Other Comment on above: IN TOOTHPASTE- CAUSE D BLISTERS. (1 source) Hydrogen Peroxide Drug Allergy 5 Repository (1 source) Sulfonamides (Antibiotic) Drug allergy (disorder) 5 Repository Medications Current Medications Medication Drug Class(es) Dates Sig (Normalized) Sig (Original) acetaminophen 500 mg oral tablet (20 sources) Start: 11-03-2018 take 1 tablet by mouth at bedtime Acetaminophen (Tylenol Extra Strength) 500 MG tablet Active 500 MG PO AT BEDTIME November 03, 2018 6:45pm Start: 02-14-2013 take 2 tablets by mo uth every six hours as needed acetaminophen (TYLENOL EXTRA STRENGTH) 500 mg tablet Take 2 tablets by mouth every 6 hours as needed for Pain. 60 tablet 3 02/14/2013 Active Comment on above: Take 2 tablets by mo uth every 6 hours as needed for Pain. [id number] 200 actuat albuterol 0.09 mg/actuat metered dose inhaler (20 sources) beta2-Adrenergic Agonist Start: 03-11-2025 take 2 puff(s) by inhalation every four hours as needed for wheezing albuterol HFA (VENTOLIN HFA) 90 mcg/actuation inhaler Indications: Cough inhale 2 puffs as instructed every 4 hours as needed for wheezing / shortness of breath 18 g 3 03/11/2025 Active Start: 07-21-2024 take 2.5 mg by inhal ation twice daily Albuterol Sulfate 2.5 mg /3 mL (0.083 %) solution for nebulization Active 2.5 mg INHALATION TWICE A DAY July 21, 2024 12:00am Start: 08-31-2022 Albuterol Sulf ate 90 mcg/actuation HFA aerosol inhaler Active 2 NMA INHALATION Q4H as needed for Wheezing August 31, 2022 12:00am Start: 08-31-2022 Albuterol Sulf ate Active 2 INH INHALATION Q4H August 31, 2022 12:00am Start: 01-11-2022 End: 02-27-2024 take 2 puff(s) by inhalation every four hours as needed for wheezing albuterol HFA (VENTOLIN HFA) 90 mcg/actuation inhaler Indications: Cough inhale 2 puffs as instructed every 4 hours as needed for wheezing / shortness of breath 18 g 3 02/28/2024 Active Comment on above: inhale 2 puffs as in structed every 4 hours as needed for wheezing / shortness of breath ascorbic acid/collagen hydr (COLLAGEN PLUS VITAMIN C ORAL) (20 sources) ascorbic acid/co llagen hydr (COLLAGEN PLUS VITAMIN C ORAL) Take by mouth. Active ascorbic acid/co llagen hydr (COLLAGEN PLUS VITAMIN C ORAL) Take by mouth. 0 Active Comment on above: Take by mouth. aspirin 81 mg chewable tablet (20 sources) Platelet Aggregation Inhibitor, Nonsteroidal Anti-inflammatory Drug Start: 11-06-2023 take 1 tablet by mouth once daily at mealtime Aspirin 81 mg Tablet,Chewable Active 81 mg PO DAILY WITH MEALS 0 November 06, 2023 1:00am take 81 mg by mouth once daily B DAR ASPIRIN ORAL Take 81 mg by mouth once daily. Active Comment on above: Take 81 mg by mouth once daily. atorvastatin 40 mg oral tablet (20 sources) HMG-CoA Reductase Inhibitor Start: 11-06-20 End: 11-21-19 take 1 tablet by mouth once daily atorvastatin (LIPITOR) 40 mg tablet Take 1 tablet by mouth once daily. 90 tablet 3 11/21/2024 Active Comment on above: Take 1 tablet by nilesh th once daily. Take 40 mg by mouth once daily. azithromycin 250 mg oral tablet (1 source) Macrolide Antimicrobial Start: 02-20-20 End: 02-25-20 take 2 tablets by mouth once daily, then take 1 tablet by mouth once daily azithromycin (ZITHROMAX) 250 mg tablet Take 2 tablets by mouth once daily for 1 day, THEN 1 tablet once daily for 4 days. 6 tablet 0 02/19/2022 02/24/2022 Active Comment on above: Take 2 tablets by [facility] once daily for 1 day, THEN 1 tablet once daily for 4 days. cefuroxime 500 mg oral tablet (1 source) Cephalosporin Antibacterial Start: 02-20-20 End: 02-25-20 take 1 tablet by mouth twice daily cefUROXime (CEFTIN) 500 mg tablet Take 1 tablet by mouth twice daily for 5 days. 10 tablet 0 02/19/2022 02/24/2022 Active Comment on above: Take 1 tablet by [facility] twice daily for 5 days. cephalexin 500 mg oral capsule (8 sources) Cephalosporin Antibacterial Start: 04-26-20 End: 05-03-20 take 1 capsule by mouth four times daily cephALEXin (KEFLEX) 500 mg capsule Indications: Acute cystitis without hematuria Take 1 capsule by mouth four times daily for 7 days. 28 capsule 04/26/2025 05/03/2025 Active Start: 04-18-2025 take 1 capsule by [facility] every twelve hours Cephalexin 500 mg capsule Active 500 mg PO EVERY 12 HOURS 14 April 18, 2025 12:00am Start: 10-26-2024 End: 11-02-2024 take 1 capsule by mouth twice daily cephALEXin (KEFLEX) 500 mg capsule Take 1 capsule by mouth two times a day for 7 days. 14 capsule 10/26/2024 11/02/2024 Active ciprofloxacin 250 mg oral tablet (3 sources) Quinolone Antimicrobial Start: 02-13-2022 End: 02-20-2022 take 1 tablet by mouth twice daily ciprofloxacin HCl (CIPRO) 250 mg tablet Indications: Urinary frequency Take 1 tablet by mouth twice daily for 7 days. 14 tablet 0 02/13/2022 02/15/2022 Discontinued (Discontinued by Patient) Comment on above: Take 1 tablet by [facility] twice daily for 7 days. clopidogrel 75 mg oral tablet (20 sources) P2Y12 Platelet Inhibitor Start: 11-06-2023 End: 11-21-2024 take 1 tablet by mouth once daily clopidogrel (PLAVIX) 75 mg tablet Take 1 tablet by mouth once daily. 90 tablet 3 11/21/2024 Active Comment on above: Take 1 tablet by nilesh th once daily. Take 75 mg by mouth once daily. ergocalciferol 1.25 mg oral capsule (20 sources) Provitamin D2 Compound Start: 01-26-2016 End: 08-22-2024 take 1 capsule by mouth every other week ergocalciferol 50,000 unit capsule (VITAMIN D2, DRISDOL) Take 1 capsule by mouth every other week. 6 capsule 3 08/22/2024 Active Comment on above: Take by mouth. fexofenadine hydrochloride 180 mg oral tablet (20 sources) Histamine-1 Receptor Antagonist Start: 09-07-2021 End: 11-21-2024 take 1 tablet by mouth once daily fexofenadine (LETITIA) 180 mg tablet Take 1 tablet by mouth once daily. As directed 90 tablet 3 11/21/2024 Active Start: 11-03-2018 End: 11-05-2018 take 1 tablet by mouth once daily Fexofenadine 180 MG tablet Discontinued 180 mg PO DAILY November 03, 2018 1:00am November 05, 2018 10:25am Comment on above: Take 1 tablet by nilesh once daily. As directed fluticasone propionate 0.05 mg/actuat metered dose nasal spray (20 sources) Corticosteroid Start: 08-31-2022 Fluticasone Propionate 50 mcg/actuation spray,suspension Active 2 NMA INTRANASAL DAILY as needed for allergies August 31, 2022 12:00am Start: 08-31-2022 Fluticasone Pr opionate Active 2 SPRAY INTRANASAL DAILY August 31, 2022 12:00am Start: 01-11-2022 End: 08-15-2024 take 2 spray(s) nasal route once daily fluticasone (FLONASE) 50 mcg/actuation nasal spray Indications: Nasal congestion Use 2 Sprays in each nostril once daily. 3 Each 3 08/16/2024 Active Comment on above: Use 2 Sprays in each nostril once daily. 30 actuat fluticasone furoate 0.1 mg/actuat / vilanterol 0.025 mg/actuat dry powder inhaler (20 sources) Corticosteroid, beta2-Adrenergic Agonist Start: 04-18-2025 Fluticasone Furoate-Vilanterol (Breo Ellipta) 100-25 mcg/dose blister with device Active 1 NMA INHALATION DAILY April 18, 2025 12:00am Start: 02-13-2024 take 1 puff(s) by mo uth once daily BREO ELLIPTA 100-25 mcg/dose inhaler INHALE 1 PUFF DAILY with good oral care 02/13/2024 Active Start: 11-03-2018 take 1 dose by inhal ation once daily Fluticasone Furoate-Vilanterol (Breo Ellipta) 1 EACH Blst.W.Dev Active 1 PUFF INHALATION DAILY November 03, 2018 6:45pm Start: 11-03-2018 take 1 dose by inhal ation once daily Fluticasone Furoate-Vilanterol (Breo Ellipta) 1 EACH blister with device Active 1 PUFF INHALATION DAILY November 03, 2018 1:00am Start: 09-18-2018 End: 04-18-2025 take 1 dose by inhalation once daily Fluticasone Furoate-Vilanterol (Breo Ellipta) 1 EACH blister with device Discontinued 1 NMA INHALATION DAILY November 03, 2018 1:00am April 18, 2025 11:39am Comment on above: Inhale 1 Inhalation as instructed once daily. Inhale one puff once daily. DO NOT CLICK OPEN UNTIL READY FOR DOSE - Dr. Henson INHALE 1 PUFF DAILY with good oral care 24 hr isosorbide mononitrate 30 mg extended release oral tablet (20 sources) Nitrate Vasodilator Start: 12-09-19 End: 11-08-20 take 1 tablet by mouth once isosorbide mononitrate ER (IMDUR) 30 mg 24 hr tablet Take 1 tablet by mouth every afternoon. 02/01/2024 Active Comment on above: Take 1 tablet by nilesh every afternoon. metoprolol tartrate 25 mg oral tablet (20 sources) beta-Adrenergic Trudy Start: 11-06-20 End: 11-21-19 take 1 tablet by mouth twice daily metoprolol tartrate, short acting, (LOPRESSOR) 25 mg tablet Take 1 tablet by mouth two times a day. 180 tablet 3 11/21/2024 Active Comment on above: Take 1 tablet by nilesh th two times a day. Take 25 mg by mouth two times a day. nitroglycerin 0.4 mg sublingual tablet (20 sources) Nitrate Vasodilator Start: 11-06-20 Nitroglycerin 0.4 mg Tablet, Sublingual Active 0.4 mg SL Q5M as needed for Chest pain November 06, 2023 1:00am Comment on above: Dissolve 0.4 mg unde r the tongue every 5 minutes as needed for chest pain. pantoprazole 20 mg delayed release oral tablet (18 sources) Proton Pump Inhibitor Start: 04-26-20 take 1 tablet by mouth once daily pantoprazole DR (PROTONIX) 20 mg tablet Indications: Gastroesophageal reflux disease without esophagitis Take 1 tablet by mouth once daily. 90 tablet 1 04/26/2025 Active Start: 11-16-2023 take 1 tablet by nilesh th once daily before breakfast pantoprazole DR (PROTONIX) 40 mg tablet Take 1 tablet by mouth daily before breakfast. Take on empty stomach, 1/2 hr before meal. 90 tablet 3 11/16/2023 Active Comment on above: Take 1 tablet by nilesh th daily before breakfast. Take on empty stomach, 1/2 hr before meal. penicillin v potassium 500 mg oral tablet (20 sources) Start: 09-12-2020 End: 11-21-2024 take 1 tablet by mouth once daily penicillin V potassium 500 mg tablet Indications: Cough Take 1 tablet by mouth once daily. 90 tablet 3 11/21/2024 Active Comment on above: Take 1 tablet by nilesh th once daily. preservative-free timolol 5 mg/ml ophthalmic solution (20 sources) beta-Adrenergic Trudy Start: 10-14-2015 Timolol Maleate 1 DROP drops Active 1 NMA Each Eye TWICE A DAY October 14, 2015 1:00am Start: 09-10-2005 take 1 drop(s) into the eye(s) twice daily TIMOPTIC 0.5 % EYE DROPS one drop each eye twice daily 0 09/10/2005 Active Comment on above: one drop each eye tw ice daily 24 hr venlafaxine 150 mg extended release oral capsule (20 sources) Serotonin and Norepinephrine Reuptake Inhibitor Start: 10-22-20 take 1 capsule by mouth once daily venlafaxine ER (EFFEXOR XR) 150 mg 24 hr capsule Indications: Generalized anxiety disorder Take 1 capsule by mouth once daily. 90 capsule 3 10/22/2024 Active Start: 09-12-2020 End: 10-20-2024 take 1 capsule by mouth once daily Venlafaxine 150 MG capsule,extended release 24hr Active 150 mg PO DAILY September 12, 2020 12:00am Comment on above: Take 1 capsule by [facility] once daily. vitamin b12 1 mg oral tablet (3 sources) Vitamin B12 Start: 11-03-2018 take 1000 ug by mouth once daily Cyanocobalamin (Vitamin B-12) Active 1000 MCG PO DAILY November 03, 2018 6:45pm Completed/Discontinued Medications Medication Drug Class(es) Dates Sig (Normalized) Sig (Original) ALPRAZolam 0.25 mg oral tablet (20 sources) Benzodiazepine Start: 04-25-2022 End: 09-04-2022 ALPRAZolam (XANAX) 0.25 mg tablet Indications: Generalized anxiety disorder Take 0.5-1 tablets by mouth once daily as needed for up to 60 days. Do not start before April 25, 2022. 30 tablet 0 04/25/2022 09/04/2022 Discontinued Start: 12-23-2021 End: 05-20-2025 take 0.5-1 tablets by mouth once daily as needed ALPRAZolam (XANAX) 0.25 mg tablet Indications: Generalized anxiety disorder Take 0.5-1 tablets by mouth once daily as needed for up to 180 days. 30 tablet 2 11/21/2024 04/26/2025 Discontinued Start: 10-14-2015 End: 04-18-2025 take 0.125-0.25 mg by mouth twice daily as needed for anxiety Alprazolam 0.25 MG tablet Discontinued 0.125 - 0.25 mg PO TWICE A DAY as needed for Anxiety October 14, 2015 1:00am April 18, 2025 10:47am Comment on above: Take 0.5-1 tablets b y mouth once daily as needed for up to 60 days. Take 0.5-1 tablets b y mouth once daily as needed for up to 60 days. Do not start before April 25, 2022. Take 0.5-1 tablets b y mouth once daily as needed for up to 180 days. amLODIPine 5 mg oral tablet (20 sources) Dihydropyridine Calcium Channel Trudy Start: 015 End: take 1 tablet by mouth once daily amLODIPine (NORVASC) 5 mg tablet Indications: Essential hypertension Take 1 tablet by mouth once daily. 90 tablet 1 05/10/2025 05/21/2025 Discontinued Comment on above: Take 1 tablet by nilesh th once daily. take 1 tablet by nilesh th once daily cholecalciferol 1.25 mg oral capsule (20 sources) Vitamin D Start: End: cholecalciferol, Vitamin D3, (VITAMIN D3) 1,250 mcg (50,000 unit) cap capsule Indications: Vitamin D deficiency 1 capsule every other week (or twice monthly) or as directed based on labs 6 capsule 3 10/10/2023 05/18/2024 Discontinued Start: 2022 End: 08-22-2022 cholecalciferol, Vitamin D3, (VITAMIN D3) 1,250 mcg (50,000 unit) cap capsule Indications: Vitamin D deficiency 1 capsule every other week (or twice monthly) or as directed based on labs 6 capsule 0 2022 08/22/2022 Discontinued Start: 12-15-2021 End: 05-30-2022 cholecalciferol, Vitamin D3, (VITAMIN D3) 1,250 mcg (50,000 unit) cap capsule Indications: Vitamin D deficiency 1 capsule every other week (or twice monthly) or as directed based on labs 6 capsule 12/15/2021 03/07/2022 Discontinued Comment on above: 1 capsule every othe r week (or twice monthly) or as directed based on labs dexamethasone 6 mg oral tablet (15 sources) Corticosteroid Start: End: take 1 tablet by mouth once daily Dexamethasone 6 MG tablet Discontinued 6 mg PO DAILY 7 September 19, 2020 1:00am September 25, 2020 1:00am September 26, 2020 1:03am epinastine hydrochloride 0.5 mg/ml ophthalmic solution (8 sources) Histamine-1 Receptor Inhibitor, Adrenergic Receptor Agonist Start: End: Epinastine HCl (ELESTAT) 0.05 % OPHTHALMIC Drop One drop each eye daily as needed 0 04/11/2007 03/08/2022 Discontinued Comment on above: One drop each eye da ruthy as needed Flaxseed Oil oil (20 sources) Start: 014 End: 023 Flaxseed Oil oil Indications: Pure hyperglyceridemia 0 08/30/2014 05/16/2023 Discontinued (Other) Start: 08-30-2014 End: 05-16-2023 Flaxseed Oil oil Start: 08-30-2014 Flaxseed Oil o il ibuprofen 200 mg oral tablet (20 sources) Nonsteroidal Anti-inflammatory Drug Start: 03-15-2016 End: 11-16-2023 take 1 tablet by mouth at bedtime Ibuprofen (Advil) 200 mg Tablet Discontinued 200 mg PO AT BEDTIME August 31, 2022 12:00am November 06, 2023 9:31am Comment on above: Take 1 tablet by nilesh at bedtime as needed for Pain (Take with food.). linezolid 600 mg oral tablet (15 sources) Oxazolidinone Antibacterial Start: 11-03-2018 End: 11-05-2018 take 1 tablet by mouth twice daily Linezolid 600 MG tablet Discontinued 600 mg PO TWICE A DAY November 03, 2018 1:00am November 05, 2018 12:28pm omeprazole 40 mg delayed release oral capsule (20 sources) Proton Pump Inhibitor Start: 11-03-2018 End: 04-30-2025 take 1 capsule by mouth once daily Omeprazole 40 MG capsule,delayed release(DR/EC) Discontinued 40 mg PO DAILY November 03, 2018 1:00am April 30, 2025 2:25pm Comment on above: Take 1 capsule by mo ut once daily. Take 40 mg by mouth once daily. ondansetron 4 mg disintegrating oral tablet (12 sources) Serotonin-3 Receptor Antagonist Start: 08-31-2022 End: 11-05-2023 take 1 tablet by mouth every eight hours as needed for nausea and vomiting Ondansetron 4 mg tablet,disintegr ating Discontinued 4 mg PO Q8H as needed for nausea and vomiting August 31, 2022 12:00am November 05, 2023 1:16am Problems Active Problems Problem Classification Problem Date Documented Da te Episodic/Chronic Acute myocardial infarction (17 sources) Myocardial infarction; Translations: [Non-ST elevation (NSTEMI) myocardial infarction] 11-05-2023 Chronic Anxiety disorders (20 sources) Generalized anxiety disorder; Translations: [Generalized anxiety disorder] 09-10-2005 Chronic Cancer of breast (20 sources) Malignant neoplasm of upper-outer quadrant of female breast; Translations: [Malignant neoplasm of upper-outer quadrant of left female breast] 06-24-2021 Chronic Complications of surgical procedures or medical care (20 sources) Postmastectomy lymphedema syndrome; 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] Onset: 3 09-10-2005 Chronic Complications of surgical procedures or medical care (15 sources) Non-healing surgical wound; Translations: [Other complications of procedures, not elsewhere classified, initial encounter] 09-16-2020 Episodic Coronary atherosclerosis and other heart disease (15 sources) Coronary arteriosclerosis; Translations: [Atherosclerotic heart disease of [place] coronary artery without angina pectoris] Onset: 5 12-15-2023 Chronic Disorders of lipid metabolism (20 sources) Pure hyperglyceridemia; Translations: [Pure hyperglyceridemia] 09-10-2005 Chronic Diverticulosis and diverticulitis (20 sources) Diverticulosis of colon; Translations: [Diverticulosis of large intestine without perforation or abscess without bleeding] 09-10-2005 Chronic Esophageal disorders (20 sources) Gastroesophageal reflux disease; Translations: [Gastro-esophageal reflux disease without esophagitis] Onset: 5 09-10-2005 Chronic Essential hypertension (20 sources) Essential hypertension; Translations: [Essential (primary) hypertension] Onset: 5 Chronic Fluid and electrolyte disorders (20 sources) Mild dehydration; Translations: [Dehydration] 09-13-2020 Episodic Genitourinary symptoms and ill-defined conditions (1 source) Urinary incontinence; Translations: [Unspecified urinary incontinence] Chronic Hemorrhoids (20 sources) Hemorrhoids; Translations: [Unspecified hemorrhoids] 09-10-2005 Episodic Intestinal infection (12 sources) Viral gastroenteritis; Translations: [Viral intestinal infection, unspecified] 09-08-2022 Episodic Mood disorders (20 sources) Depressive disorder; Translations: [Depression] Onset: 3 04-02-2013 Chronic Nausea and vomiting (16 sources) Nausea; Translations: [Nausea] Episodic Nonmalignant breast conditions (20 sources) Fibrocystic disease of breast; Translations: [Diffuse cystic mastopathy of unspecified breast] Onset: 7 05-11-2007 Chronic Nutritional deficiencies (20 sources) Vitamin D deficiency; Translations: [Vitamin D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 [facility] Comment on above: Performed By: #### L 500.4050, L503.7505, L501.2450, L501.4021, L501.5200, L100.0100 #### Laboratory [address] [place], [address] Monocytes/100 WBC (Bld) 8.7 % Normal 0-10 [facility] Comment on above: Performed By: #### L 500.4050, L503.7505, L501.2450, L501.4021, L501.5200, L100.0100 #### Laboratory [address] [place], [address] Neutrophils/100 WBC (Bld) 75.7 % High 47-70 Comment on above: Performed By: #### L 500.4050, L503.7505, L501.2450, L501.4021, L501.5200, L100.0100 #### Laboratory [address] [place], [address] Nucleated RBC (Bld) [#/Vol] 0 10*3/uL Normal 0-5 Comment on above: Performed By: #### L 500.4050, L503.7505, L501.2450, L501.4021, L501.5200, L100.0100 #### Laboratory [address] [place], [address] Platelet mean volume (Bld) [Entitic vol] 9.8 fL Normal 6.2-12.0 Comment on above: Performed By: #### L 500.4050, L503.7505, L501.2450, L501.4021, L501.5200, L100.0100 #### Laboratory [address] [place], [address] Platelets (Bld) [#/Vol] 291 10*3/uL Normal 150-450 Comment on above: Performed By: #### L 500.4050, L503.7505, L501.2450, L501.4021, L501.5200, L100.0100 #### Laboratory [address] [place], [address] RBC (Bld) [#/Vol] 5.22 10*6/uL Normal 4.2-5.4 [facility] Comment on above: Performed By: #### L 500.4050, L503.7505, L501.2450, L501.4021, L501.5200, L100.0100 #### Laboratory [address] [place], [address] RDW SD 49.4 fl High 35.1-43.9 Comment on above: Performed By: #### L 500.4050, L503.7505, L501.2450, L501.4021, L501.5200, L100.0100 #### Laboratory [address] [facility] [place], [address] WBC (Bld) [#/Vol] 7.9 10*3/uL Normal 4.4-11.0 [facility] Comment on above: Performed By: #### L 500.4050, L503.7505, L501.2450, L501.4021, L501.5200, L100.0100 #### Laboratory [address] [place], [address] Carbon dioxide, total [Moles /volume] in Central venous bloodOrdered By: Ayush Pressley on 04-18-2025 CO2 [Moles/Vol] 22.1 mmol/L 21.0-32.0 Chest PA and Lateralon 04-18 Chest PA and Lateral [facility] Imaging Services [address] [place] [address] Chest PA and Lateral MR#: [id number] Acct: [id number] Name: HOLLIE UGARTE Rep #: [id number] : 1940 F 84 From: Oscar Currie MD PCP: Dr. Amrik Mejia MD Status: REG ER Study: Chest PA and Lateral Date of Exam: 04/18/25 Exam# [id number] Ordering Dr: Ayush Pressley DO PROCEDURE: CHEST PA AND LATERAL 04/18/2025 REASON FOR EXAM: CHEST PAIN TECHNIQUE: Frontal and lateral views of the chest. COMPARISON: Portable chest, 07/21/2024. FINDINGS: Multiple soft tissue nodules noted on the right. These have been shown to be mucous plugs within dilated bronchi on prior CT examination. The left lung is clear. There is cardiomegaly and aortic ectasia consistent with benign essential hypertension. 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 Status post left breast surgery and axillary lymph node dissection. The upper abdominal bowel gas pattern is normal. There are no bony abnormalities. RAD/Chest PA and Lateral IMPRESSION: 1. Progressive bronchiectasis with mucous plugging on the right. 2. Findings consistent with hypertension. 3. Other findings as noted. Reading Location: [id number] CC: Dr. Ayush Pressley DO; Dr. Amrik Mejia MD Vacation Planner: Signed Normal Chloride assayOrdered By: Omega Pressley on 04-18-2025 Chloride [Moles/Vol] 103 mmol/L 98-108 [facility] Comprehensive Metabolic Prof ilon 04-18-2025 Albumin [Mass/Vol] 3.5 g/dL Normal 3.4-4.8 [facility] Comment on above: Performed By: #### L 500.4050, L503.7505, L501.2450, L501.4021, L501.5200, L100.0100 #### Laboratory [address] [place], [address] Albumin/Globulin [Mass ratio] 1.3 {ratio} Normal 0.9-2.4 Comment on above: Performed By: #### L 500.4050, L503.7505, L501.2450, L501.4021, L501.5200, L100.0100 #### Laboratory [address] [place], [address] ALK PHOS 113 U/L High 35-104 Comment on above: Performed By: #### L 500.4050, L503.7505, L501.2450, L501.4021, L501.5200, L100.0100 #### Laboratory [address] [place], [address] ALT [Catalytic activity/Vol] 21 U/L Normal <=34 Comment on above: Performed By: #### L 500.4050, L503.7505, L501.2450, L501.4021, L501.5200, L100.0100 #### Laboratory [address] [place], [address] AST [Catalytic activity/Vol] 20 U/L Normal <=31 Comment on above: Performed By: #### L 500.4050, L503.7505, L501.2450, L501.4021, L501.5200, L100.0100 #### Laboratory [address] [place], [address] Bilirubin [Mass/Vol] 0.42 mg/dL Normal 0.00-1.30 [facility] Comment on above: Performed By: #### L 500.4050, L503.7505, L501.2450, L501.4021, L501.5200, L100.0100 #### Laboratory [address] [place], [address] BUN/CRE 17.1 RATIO Normal 10-20 Comment on above: Performed By: #### L 500.4050, L503.7505, L501.2450, L501.4021, L501.5200, L100.0100 #### Laboratory [address] [place], [address] Calcium [Mass/Vol] 8.7 mg/dL Normal 7.6-11.0 [facility] Comment on above: Performed By: #### L 500.4050, L503.7505, L501.2450, L501.4021, L501.5200, L100.0100 #### Laboratory [address] [place], [address] Chloride [Moles/Vol] 103 mmol/L Normal 98-108 [facility] Comment on above: Performed By: #### L 500.4050, L503.7505, L501.2450, L501.4021, L501.5200, L100.0100 #### Laboratory [address] [place], [address] CO2 [Moles/Vol] 22.1 mmol/L Normal 21.0-32.0 Comment on above: Performed By: #### L 500.4050, L503.7505, L501.2450, L501.4021, L501.5200, L100.0100 #### Laboratory [address] [place], [address] Creatinine [Mass/Vol] 1.02 mg/dL Normal 0.70-1.20 [facility] Comment on above: Performed By: #### L 500.4050, L503.7505, L501.2450, L501.4021, L501.5200, L100.0100 #### Laboratory [address] [place], [address] ECRCL 36.40 ml/min Low 50-250 Comment on above: Performed By: #### L 500.4050, L503.7505, L501.2450, L501.4021, L501.5200, L100.0100 #### Laboratory [address] [place], [address] GAP 11 Normal 5-15 Comment on above: Performed By: #### L 500.4050, L503.7505, L501.2450, L501.4021, L501.5200, L100.0100 #### Laboratory [address] [place], [address] GFR/1.73 sq M.predicted among non-blacks MDRD (S/P/Bld) [Vol rate/Area] 55 mL/min/{1.73_m2} Low >60 Comment on above: Result Comment: mL/m in/1.73m2 CKD-EPI Creatinine Equation (2020) Performed By: #### L 500.4050, L503.7505, L501.2450, L501.4021, L501.5200, L100.0100 #### Laboratory [address] [place], [address] Globulin (S) [Mass/Vol] 2.7 g/dL Normal 2.2-4.2 [facility] Comment on above: Performed By: #### L 500.4050, L503.7505, L501.2450, L501.4021, L501.5200, L100.0100 #### Laboratory [address] [place], [address] Glucose [Mass/Vol] 182 mg/dL High 70-99 [facility] Comment on above: Performed By: #### L 500.4050, L503.7505, L501.2450, L501.4021, L501.5200, L100.0100 #### Laboratory [address] [place], [address] Potassium [Moles/Vol] 3.6 mmol/L Normal 3.3-5.1 [facility] Comment on above: Performed By: #### L 500.4050, L503.7505, L501.2450, L501.4021, L501.5200, L100.0100 #### Laboratory [address] [place], [address] Sodium [Moles/Vol] 137 mmol/L Normal 133-145 [facility] Comment on above: Performed By: #### L 500.4050, L503.7505, L501.2450, L501.4021, L501.5200, L100.0100 #### Laboratory [address] [place], [address] T PROT 6.2 g/dL Normal 5.9-8.4 Comment on above: Performed By: #### L 500.4050, L503.7505, L501.2450, L501.4021, L501.5200, L100.0100 #### Laboratory [address] [place], [place], [address] Urea nitrogen [Mass/Vol] 17 mg/dL Normal 4-19 Comment on above: Performed By: #### L 500.4050, L503.7505, L501.2450, L501.4021, L501.5200, L100.0100 #### Laboratory [address] [place], [place], [address] D-Dimer Quantitative (DVT/PE )on 04-18-2025 D-DIMER QUANT < 0.27 Low 0.27-0.49 Comment on above: Result Comment: NORM AL D-Dimer level (<0.50) indicates no DVT or PE. Performed By: #### L 300.4310, L300.8000, L300.3900 #### [id number] [place], [place], [id number] Emergency Department Summary on 04-18-2025 Emergency Department Summary [facility] Medical Records Department [address] [place] [address] Emergency Department Summary 04/18/25 MR#: [id number] Acct: [id number] Name: HOLLIE UGARTE Rep #: [id number] : 1940 84 From: Ayush Pressley DO PCP: Dr. Amrik Mejia MD Status:REG ER Location: ED HPI History of Present Illness Chief Complaint: Chest Pain Narrative Narrative: Chief complaint and HPI: Chest/epigastric abdominal pain, generalized weakness. History taken by patient as well as medical record. 84-year-old female with past medical history of CAD, status post PCI on Plavix, HTN,anxiety/depressio n, history of breast cancer with mastectomy presents for evaluation of chest/epigastric abdominal pain. Patient states shortly after waking up today she developed generalized weakness. States shortly after eating breakfast she developed chest pain/burning in her mid sternum/epigastrium region. EMS gave 1 nitro and 4 aspirin prior to arrival. Patient states this is not helped her pain. She denies any fever, chills, shortness of breath, nausea, vomiting, dysuria. At baseline has a chronic cough. Review of systems: See HPI Medications: As listed on the chart Allergies: As listed on the chart PFSH: Per chart Vital signs: As listed on the chart. Reviewed. Physical exam: Gen: A O x3, NAD Head: Normocephalic, atraumatic Eyes: No sclera icterus, conjunctiva clear ENT: Moist mucous membranes Neck: Trachea midline, No JVD CV: RRR, no murmurs, no peripheral edema Resp: Lungs CTA BL, no w/r/c GI: Abd soft, non-distended, nontender, no r/r/g Musc: Full ROM, no deformity Skin: Warm, dry Neuro: Alert, oriented, grossly intact, sensation intact Psych: Cooperative, appropriate mood and affect [facility] Medical History CAD (coronary artery disease) Breast cancer Anxiety and depression Hypertension Home Medications ???Medication ???Instructions ???Recorded ???Last Taken ???Type amlodipine 5 mg tablet 5 mg PO DAILY blood prssure 04/18/25 History timolol maleate 0.5 % eye drops 1 drp BID glaucoma 10/14/15 History ergocalciferol (vitamin D2) 1,250 50,000 unit PO UD supplement 01/1204/14/25 History mcg (50,000 unit) capsule (Vitamin D2) omeprazole 40 mg capsule,delayed 40 mg PO DAILY gerd 11/03/1801/26 History release penicillin V potassium 500 mg 500 mg PO DAILY prophylaxis 04/18/25 History tablet venlafaxine 150 mg 150 mg PO DAILY depression 0 01/27/24 History capsule,extended release 24 hr albuterol sulfate 90 mcg/actuation 2 inh inhalation Q4H PRN Wheezin g 08/31/22 08/30/22 History aerosol inhaler fexofenadine 180 mg tablet 180 mg PO DAILY allergies 08/31/22 04/18/25 History fluticasone propionate 50 2 spray intranasal DAILY PRN 08/31 2 Days Ago History mcg/actuation nasal allergies 08/29/22 spray,suspension aspirin 81 mg chewable tablet 81 mg PO DAILYCM #0 tabs 11/06/23 04/18/25 Rx nitroglycerin 0.4 mg sublingual 0.4 mg sublingual Q5M PRN Chest 04/18/25 Rx tablet pain #10 tabs atorvastatin 40 mg tablet 40 mg PO QHS #90 tabs 12/09/2303/08 Rx clopidogrel 75 mg tablet 75 mg PO DAILY #90 tabs 12/09/23 0 04/18/25 Rx metoprolol tartrate 25 mg tablet 25 mg PO BID #180 tabs 12/09/23 Rx albuterol sulfate 2.5 mg/3 mL 2.5 mg inhalation BID 07/21/24 Unk nown History (0.083 %) solution for nebulization isosorbide mononitrate 30 mg 30 mg PO DAILY #30 tabs 11/08/24 0 04/18/25 Rx tablet,extended release 24 hr cephalexin 500 mg capsule 500 mg PO Q12 7 days #14 CAPSULES 04/18/25 Unknown Rx fluticasone furoate 100 1 ea inhalation DAILY 04/18/2504/07 History mcg-vilanterol 25 mcg/dose inhalation powder (Breo Ellipta) Allergy/AdvReac Type Severity Reaction Status Date / Time hydrogen peroxide AdvReac Other Verified 04/18/25 10:45 oxycodone HCl (From Percodan) AdvReac Nausea Verified 04/18/25 10:45 oxycodone terephthalate AdvReac Nausea Verified 04/18/25 10:45 (From Percodan) Sulfa (Sulfonamide AdvReac Nausea/Vom/ Verified 04/18/25 10:45 Antibiotics) Diarrhea Surgical History Stented coronary artery ( 11/05/23) Hx of mastectomy Hx of tonsillectomy Hx of cholecystectomy Hx of appendectomy H/O: hysterectomy Social History (Updated 04/18/25 @ 10:45 by Osiris Moulton) household members: spouse current occupational status: retired Smoking Status: Never smoker EXAM Physical Exam Const Vital Signs: 04/18/25 10:41 04/18/25 10:45 04/18/25 11:45 Temperature 98.2 F Temperature Source Oral Pulse Rate 67 69 Respiratory Rate 16 24 H Respiratory Ef (more content not included)... Normal Eosinophil percentageOrdered By: Ayush Pressley on 04-18-2025 Eosinophils/100 WBC (Bld) 0.4 % 0-5 Erythrocyte distribution wid th ratioOrdered By: Ayush Pressley on 04-18-2025 Erythrocyte distribution width (RBC) [Ratio] 16.6 % High 11.6-14.6 Erythrocyte distribution wid th standard deviationOrdered By: Linwood Bismark Wong on 04-18-2025 Erythrocyte distribution width (RBC) [Ratio] 49.4 fl High 35.1-43.9 Glomerular filtration rate ( GFR) estimation/1.73 sq m using serum, plasma, or whole bOrdered By: Ayush Pressley on 04-18-2025 GFR/1.73 sq M.predicted among non-blacks MDRD (S/P/Bld) [Vol rate/Area] 55 mL/min/{1.73_m2} Low >60 Comment on above: mL/min/1.73m2 CKD-EP I Creatinine Equation (2020) Hematocrit Auto (Bld) [Volum e fraction]Ordered By: Ayush Pressley on 04-18-2025 Hematocrit (Bld) [Volume fraction] 43.0 % 37-47 Hemoglobin measurementOrdere d By: Ayush Pressley on 04-18-2025 Hemoglobin (Bld) [Mass/Vol] 14.0 g/dL 12.0-15.0 Hyaline casts LM.LPF (Urine sed) [#/Area]Ordered By: Ayush Pressley on 04-18-2025 Hyaline casts (Urine sed) [#/Area] 5 /[LPF] 0-5 Immature granulocytes/100 WB C Auto (Bld)Ordered By: Ayush Pressley on 04-18-2025 Immature granulocytes/100 WBC (Bld) 0.500 % 0.0-0.9 Comment on above: IG% - Immature Granu locytes (promyelocytes, myelocytes and metamyelocytes) > 1% indicates that a LEFT SHIFT is Present. International normalized rat io (INR) calculationOrdered By: Ayush Pressley on 04-18-2025 INR Coag (Bld) [Relative time] 1.0 {INR} Ketones Test strip Ql (U)Ord ered By: Ayushmili SofiaMarvin on 04-18-2025 Ketones Ql (U) Negative Negative L499.0042on 04-18-2025 Trop T High Sen 13 ng/L Normal <=14 Comment on above: Performed By: #### L 499.0042 #### [id number] [facility] [place], [address] L501.4021on 04-18-2025 Trop T High Sen 17 ng/L High <=14 Comment on above: Performed By: #### L 500.4050, L503.7505, L501.2450, L501.4021, L501.5200, L100.0100 #### [id number] [place], [address] L503.7505on 04-18-2025 Natriuretic peptide B (Bld) [Mass/Vol] 1011 pg/mL Normal <=1800 Comment on above: Result Comment: Hear t Failure Unlikely: < 300 pg/mL Heart Failure Likely < 50 Years: > 450 pg/mL 50-75 Years: > 900 pg/mL >75 Years: > 1800 pg/mL Performed By: #### L 500.4050, L503.7505, L501.2450, L501.4021, L501.5200, L100.0100 #### [id number] [place], [address] Laboratory - Chemistry and C hemistry - challengeOrdered By: Ayush Pressley on 04-18-2025 AST [Catalytic activity/Vol] 20 U/L <32 Lipaseon 04-18-2025 Lipase [Catalytic activity/Vol] 43 U/L Normal 13-75 Comment on above: Result Comment: Tigre sahu note: LIPASE revised reference range effective 23. New Lipase methodology. Expected to produce lower values than the previous assay method. NEW Reference Range: 13 - 75 U/L Performed By: #### L 500.4050, L503.7505, L501.2450, L501.4021, L501.5200, L100.0100 #### Laboratory [address] [place], [address] Lipase measurementOrdered By : Ayush Pressley on 04-18-2025 Lipase [Catalytic activity/Vol] 43 U/L 13-75 Comment on above: Please note:LIPASE r evised reference range effective 23. New Lipase methodology. Expected to produce lower values than the previous assay method. NEW Reference Range: 13 - 75 U/L MCV (mean corpuscular volume ) determinationOrdered By: Ayush Pressley on 04-18-2025 MCV (RBC) [Entitic vol] 82.4 fL 81-99 [facility] Magnesiumon 04-18-2025 Magnesium [Mass/Vol] 1.9 mg/dL Normal 1.5-2.2 [facility] Comment on above: Performed By: #### L 500.4050, L503.7505, L501.2450, L501.4021, L501.5200, L100.0100 #### [id number] [place], [address] Magnesium measurement (mass/ volume)Ordered By: Ayush Pressley on 04-18-2025 Magnesium (Unsp spec) [Mass/Vol] 1.9 mg/dL 1.5-2.2 Mean corpuscular hemoglobin (MCH) determinationOrdered By: Ayush Pressley on 04-18-2025 MCH (RBC) [Entitic mass] 26.8 pg Low 27.0-32.0 Mean corpuscular hemoglobin concentration (MCHC) determinationOrdered By: Ayush Pressley on 04-18-2025 MCHC (RBC) [Mass/Vol] 32.6 g/dL 32-36 [facility] Mean platelet volume determi nationOrdered By: Ayush Pressley on 04-18-2025 Platelet mean volume (Bld) [Entitic vol] 9.8 fL 6.2-12.0 Microscopic analysis of urin e for red blood cells (RBC)Ordered By: Ayush Pressley on 04-18-2025 Microscopic analysis of urine for red blood cells (RBC) 0 SEEN /hpf 0-5 Monocyte percentageOrdered B y: Ayush Pressley on 04-18-2025 Monocytes/100 WBC (Bld) 8.7 % 0-10 [facility] Mucus LM Ql (Urine sed)Order ed By: Ayush Pressley on 04-18-2025 Mucus Ql (Urine sed) 0 SEEN /hpf [facility] Natriuretic peptide.B prohor ivan N-Terminal [Mass/volume] in Serum or PlasmaOrdered By: Ayush Pressley on 04-18-2025 Natriuretic peptide.B prohormone N-Terminal [Mass/Vol] 1011 pg/mL <1800 Comment on above: Heart Failure Unlike ly: < 300 pg/mLHeart Failure Likely< 50 Years: > 450 pg/mL50-75 Years: > 900 pg/mL>75 Years: > 1800 pg/mL Neutrophil percentageOrdered By: Ayush Pressley on 04-18-2025 Neutrophils/100 WBC (Bld) 75.7 % High 47-70 Nitrite Test strip Ql (U)Ord ered By: Ayush Pressley on 04-18-2025 Nitrite Ql (U) Negative Negative Nucleated red blood cell per centageOrdered By: Ayush Pressley on 04-18-2025 Nucleated RBC/100 WBC (Bld) [Ratio] 0 % 0-5 Partial Thromboplast Timeon 04-18-2025 aPTT Coag (Bld) [Time] 25.9 s Normal 24.1-36.2 [facility] Comment on above: Performed By: #### L 300.4310, L300.8000, L300.3900 #### [id number] [place], [address] Platelet countOrdered By: Omega Pressley on 04-18-2025 Platelets (Bld) [#/Vol] 291 10*3/uL 150-450 Potassium measurement (mass/ volume)Ordered By: Ayush Pressley on 04-18-2025 Potassium (Unsp spec) [Mass/Vol] 3.6 mmol/L 3.3-5.1 Protein Test strip Ql (U)Ord ered By: Ayush Pressley on 04-18-2025 Protein Ql (U) 30 mg/dl High Negative Prothrombin Time w/INRon INR Coag (PPP) [Relative time] 1.0 {INR} Normal Comment on above: Performed By: #### L 300.4310, L300.8000, L300.3900 #### [id number] [place], [address] PT Coag (PPP) [Time] 13.8 s Normal 11.7-14.9 [facility] Comment on above: Performed By: #### L 300.4310, L300.8000, L300.3900 #### [id number] [place], [address] Prothrombin timeOrdered By: Ayush Pressley on 04-18-2025 PT Coag (PPP) [Time] 13.8 s 11.7-14.9 [facility] RBC Auto (Bld) [#/Vol]Ordere d By: Ayush Pressley on 04-18-2025 RBC (Bld) [#/Vol] 5.22 10*6/uL 4.2-5.4 [facility] Serum creatinine measurement (mass/volume)Ordered By: Ayush Pressley on 04-18-2025 Creatinine [Mass/Vol] 1.02 mg/dL 0.70-1.20 [facility] Serum globulin measurementOr dered By: Ayush Pressley on 04-18-2025 Globulin (S) [Mass/Vol] 2.7 g/dL 2.2-4.2 [facility] Serum glucose measurement (m ass/volume)Ordered By: Ayush Pressley on 04-18-2025 Glucose [Mass/Vol] 182 mg/dL High 70-99 [facility] Serum or plasma alanine singleton otransferase (ALT) measurementOrdered By: Ayush Pressley on 04-18-2025 ALT [Catalytic activity/Vol] 21 U/L <35 Serum or plasma albumin steve urement (mass/volume)Ordered By: Ayush Wong on 04-18-2025 Albumin [Mass/Vol] 3.5 g/dL 3.4-4.8 [facility] Serum or plasma albumin/glob ulin mass ratioOrdered By: Ayush Pressley on 04-18-2025 Albumin/Globulin [Mass ratio] 1.3 {ratio} 0.9-2.4 Serum or plasma alkaline errol sphatase measurementOrdered By: Ayush Pressley on 04-18-2025 ALP [Catalytic activity/Vol] 113 U/L High 35-104 Serum or plasma calcium steve urement (mass/volume)Ordered By: Ayush Wong on 04-18-2025 Calcium [Mass/Vol] 8.7 mg/dL 7.6-11.0 [facility] Serum or plasma urea nitroge n measurement (mass/volume)Ordered By: Ayush Pressley on 04-18-2025 Urea nitrogen [Mass/Vol] 17 mg/dL 4-19 Sodium levelOrdered By: Tello Pressley on 04-18-2025 Sodium [Moles/Vol] 137 mmol/L 133-145 [facility] Squamous epithelial cells de tection in urine sediment by light microscopyOrdered By: Ayush Pressley on 04-18-2025 Epithelial cells.squamous LM Ql (Urine sed) 0-5 SEEN /hpf 5-10 Total proteinOrdered By: Ky Pressley on 04-18-2025 Protein [Mass/Vol] 6.2 g/dL 5.9-8.4 [facility] Troponin T.cardiac [Mass/vol ume] in Serum or Plasma by High sensitivity methodOrdered By: Ayush Pressley on 04-18-2025 Troponin T.cardiac High sensitivity method [Mass/Vol] 13 ng/L <14 Troponin T.cardiac High sensitivity method [Mass/Vol] 17 ng/L High <14 Urinalysis, Completeon 04-18 CAST,HYALINE 5-10 SEEN Normal 0-5 Comment on above: Order Comment: ABBY CTOR TO SPECIFY Performed By: #### L 400.0001 #### Laboratory [address] [place], [address] BACTERIA RARE Normal None Seen Comment on above: Order Comment: COLLE CTOR TO SPECIFY Performed By: #### L 400.0001 #### Laboratory [address] [place], [place], [id number] EPI,SQUAMOUS 0-5 SEEN Normal 5-10 Comment on above: Order Comment: COLLE CTOR TO SPECIFY Performed By: #### L 400.0001 #### Laboratory [address] [facility] [address] WBC 10-25 SEEN Normal 0-5 Comment on above: Order Comment: ABBY CTOR TO SPECIFY Performed By: #### L 400.0001 #### Laboratory [address] [place], [place], [id number] Mucus Ql (Urine sed) 0 SEEN Normal [facility] Comment on above: Order Comment: ABBY CTOR TO SPECIFY Performed By: #### L 400.0001 #### Laboratory [address] [place], [place], [address] RBC 0 SEEN Normal 0-5 Comment on above: Order Comment: ABBY CTOR TO SPECIFY Performed By: #### L 400.0001 #### Laboratory [address] 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 Abnormal Urine glucose detectionOrder ed By: Ayush Pressley on 04-18-2025 Glucose Ql (U) Normal mg/dl Normal Urine leukocyte esterase det ection by dipstickOrdered By: Ayush Pressley on 04-18-2025 Leukocyte esterase Test strip Ql (U) 500 /ul High Negative Urine pHOrdered By: Ayush Oates on 04-18-2025 pH (U) 6.0 [pH] 5.0 - 8.0 Urine sediment bacteria coun t by microscopy (number/high power field)Ordered By: Ayush Pressley on 04-18-2025 Bacteria LM.HPF (Urine sed) [#/Area] RARE /hpf None Seen Urine specific gravity measu rementOrdered By: Ayush Pressley on 04-18-2025 Specific gravity (U) [Rel density] 1.015 1.002-1.030 Urine urobilinogen measureme ntOrdered By: [facility] on [facility]-18-[facility]25 Urobilinogen Ql (U) Normal mg/dl Normal [facility] White blood cell (WBC) count Ordered By: [facility] on 04-18-2025 WBC (Bld) [#/Vol] 7.9 10*3/uL 4.4-11.0 [facility] White blood cell countOrdere d By: Ayush Pressley on 04-18-2025 White blood cell count 10-25 SEEN /hpf 0-5 CNPNon 03-12-2025 CNPN Telephone (4CQ) HOLLIE UGARTE ([id number]) 1940 F Date Time Provider Department 03/12/25 AMRIK MJEIA 4CQ During your visit today, we recorded the following information about you: Ana Jeter 03/12/2025 1:46 PM Signed Adriano From [facility] is requesting last office note with current med list and past medical history to be faxed to [phone] as a nurse is going to the home this afternoon at 4 PM and would really like to have this info for that visit Lisa Bajwa LPN 03/12/2025 1:52 PM Signed Faxed. Allergies As of Date: 03/12/2025 Noted Allergy Reaction AMOXICILLIN 09/10/2005 8 - GI Upset Comments: high doses -diarrhea MACROBID (NITROFURANTOIN MONOHYD/*09/29/2012 6 - Diarrhea PERCODAN (OXYCODONE-ASPIRIN) 09/10/2005 16 - Unknown POLYSPORIN (BACITRACIN-POLYMYXIN *09/10/2005 SULFA (SULFONAMIDE ANTIBIOTICS) 09/10/2005 Date Reviewed: 11/21/2024 Reviewed by: Tabitha Cutler LPN - Fully Assessed Reason for Visit: Patient Update [1234] Prescriptions as of 03/12/2025 - albuterol HFA (VENTOLIN HFA) 90 mcg/actuation inhaler inhale 2 puffs as instructed every 4 hours as needed for wheezing / shortness of breath - atorvastatin (LIPITOR) 40 mg tablet Take 1 tablet by mouth once daily. - amLODIPine (NORVASC) 5 mg tablet Take 1 tablet by mouth once daily. - ALPRAZolam (XANAX) 0.25 mg tablet Take 0.5-1 tablets by mouth once daily as needed for up to 180 days. - clopidogrel (PLAVIX) 75 mg tablet Take 1 tablet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 (HCC) [J47.*06/05/2019 05/16/2023 Obesity, Class I, BMI 30-34.9 [E66.811] 05/18/2024 Visit Notes: >> Brittanie Johnson RN TueSep 14, 2024 10:01 AM Status: Signed Pt was seen by this Nurse. Provider Loida Arellano CNP reviewed path with pt and advised pt to establish with a derm provider to follow with her. Pt was advised to return on TuesdaySeptember 17 for suture removal. Pt had no further ques (more content not included)... Normal [facility] SURGICAL PATHOLOGYOrdered By : Jules Santacruz on 09-06-2024 Case Report Surgical Pathology Report Case: [id number] Authorizing Provider: Marek Petersen MD Collected: 09/05/2024 04:06 PM Ordering Location: General Surgery Received: 09/05/2024 05:14 PM Pathologist: Jules Santacruz MD Specimen: Skin, Excision, left posterior shoulder [facility] Work Phone: Clinical History [id number] b ZUsQbYfKwVtBhPkUvz6AJ IkocY1Qql8BWZdOBizfA7 hFNQhCPjmM8tzoiEmtQYz HMQtAWc1tE0lmWwicQ5mL yIhFkOvSTInTn3hmg1poU Qvc7iePNnrw3gvjiwxCGC qU61sdUZbbQoskOEdgTMp d8R7WQPkn0Eqx9unzIgyV XJccGFyIH0= [facility] Work Phone: FINAL DIAGNOSIS i6omfXBtSIWzmSAcFRue M knarjGtZXHgyPHoU2Dvrt rdRSruOD8cXQ2dzPxxhAS pqZKdXBHmZgPjj3wfu953 pBQct5fvXBGHwdcecXd8c AbwA93nh4G2JdgxB87etF MfERH6GPPaBQGuaZPjJPD rOEZ5BRYpjEBtJ0hoMCZt IH5sxqjqIEelZZxxDQPsk JX0ADZipDMrZ1DsXHNuZE ykFRLfcny8ZfCzZe7dgSF yeTcyMFxwYXJkXHBsYWlu AXHbUkWiXU0zH4wucjibu SXknDTyh8E0ZGClx2Lvj1 scvSpzSXKsHPM3W3gpfH3 vNbcuDKUnFOSsXPUem2Kh JYFrfPmfY0GrG8grd98eL XDtk49jkTE1WEc1MYT5V3 lzZWQuIFxwYXJccGFyIFN ULh2WMZ8yrO2tTH9nCB3i VGP4MRxbUJG0 [facility] Work Phone: Gross Description a0oogDJwNGVymTWFUHY7 M JTtIS1xyMnlqPd7mTvlVA CafhW5oWWlWEzbu9krZJI 7x4pcfvFMXogbVKRdMT6c SVqdELVhWB1hEcUhQONsG mYxXHBhcGVydzEyMjQwXH TlfIJzxSN3JDAaQF7cndn kSNmdPEjvXLGmwcC4VXUv vLZzS0XoYCPjBB8zfyhaA WG9SZNTFzlzBp0jjUHftX tcZjFcZmNoYXJzZXQwXGZ lf5isftHBeomtqYa7iL8W FHUaL0XtJN5Hh3ukNTLja RRiEXB9GLsja0zuVLfcQK P2YYGzUOSfRSWnPY3AUqC jUNs9KyDuWMA9CjA8PQq9 PFRBKQIrNUG1ClLdLPsbU Le6FHwoRVfsgVPhHXNkIM ZnKNYuCKpnyhA2h8wxVIB zsXRkGFG7PNgft5miKXpy UHU4NOKgCzQaPGAcBQ7JS eQsHTz2DfZlEPL3MoY3XZ w5NENSQgBhVhDyLcFjKzK nWkAuBJn5KIw1XApPAoHo MMK0TZlpRjIiWYD6UYN4M CBcXHQgMiBcXHNzIDMgXF vegHGvWO4poVmsQGEeJR2 OVRNbEXepJZNnLoIlQS0m G1zilaomFWeymXVrm41rm ZSkC5ehkVQyON6XUWMilq AtSJpoiVxtoZ3keCIoK3j cZnMyMlxlcGljTmVzdERv VvViFPiogYPujVHcCS2ZC USnUqXkMmAqLTl7YIAroE 6kEq9ruFEueV8moJWvCU1 vKHxioEA0fHRktMWwaDFt VCVjc0RzwCBnpUKnFlArs 2luIGFuZCBzdWJjdXRhbm TfgZWwjTghd5VvGF9bFWM 1cmluZyAyLjMgeCAxLjcg aPJpTjlpD64tOLEUPTA1w HVyZSBpcyBwbGFjZWQgaW 8rgIqeLI2qHIqteYMbdRZ njhidzpMuw9UsH8BfVQSv LDQzvtRjDVMol7xsurW5M JPrlT5soCyrACGySpKsYO DkoB0rNXYuIXBvl0kzSEs fFSA2bySjN4NvPGPxt32s dHJhdGVzIGFuIGlycmVnd CftzpT1PT1qmLkzhvkuHX fqphO1OJMdHZ8jFBQsSSO iZWQgYXJlYSBtZWFzdXJp ugloDI40VSbmNC43FFMoV FIqvdPkLDy0JL0qjrG2lg Klo8CgJZ0nofmuofQpOLE WlTJrHntqDNNdMPMdsW0r gKIbkF0yBCGxt5OsucvmL MH7aKKkHDklNCGgCUFosL 0wgXBgqF3zXZDiAio3IDt jQJ7lNMRlPAKtAWYfUT9p cmdpbiBpcyBpbmtlZCBib OYwbg5kQGLoCICiiZFldX 3fqpWesdDhXQW3iM2hWIV iOU0dBIMrvOSktIxsv4Kc nUv6iCYyXMFgFSYngXknu 2K6OCXuYFSaCxErXXVtrE csOYYiSiedTAQ3fVPkIZM gIOM2OpGkEPtcOEREWLQd r1L9FdVasYWpKE0KOHEub lGCMnEGFV8vlN5cMWBvYm YqTUQhLdXpRDK4VOGoHT1 shAIfFK3YZPQzjjSRGbla t1CyWEQ5YC0evsJ1xR3lH OVbwxGhzu8mPTEztHWTfA V9GCfnfmXfO4wqpkliWQT 8DMUoXZF1Q8ezYRIAisLs QOPQfZH1CXvnwwAaPE9MP WL8UIx6EMGtgrTIVmugGB SaJHTymLJAp8WeGYJQLnq ruFfxEdUidCDsEwH4FSYs yGIvDFU5DJ2opNulTTAqS 7PxB3DazmE7MCCxfgLHWt adLOTkVJ2PUXXaEuBvNPa 9 [facility] Work Phone: Performing Lab t5qbdXCiMVUixOMcWwLj M USsNFXqq5bcGAQhfJAgBj EwMzNcZnRuYmpcdWMxXGR zSuMhw4wjz540vLXow8pp TKCwPiQ0fCBzVQXkdROaL 042NJYnJDobi3xvf7CmQI QedRAzt0B3WZAOkfmheBn 8jAsfT39rk4I9GooxP0nm ZSDdVYNzS1IbUI5dDQYgC bd3ZBQ3XWT9RXLuISGxH8 HlWV8mEFClqPLfUNo2c6u nfDyyTMQaWUK6f7xuHDlb ztRoMK1wft0cqFu3f4fuw zEgRGVmYXVsdCBQYXJhZ3 AeeFnaVp0chSx1hTynBcs xZMQ1Rmf7II1ujh20mqx9 rLmqICCkcbniGlR2ASztG OZwgymeCBc6QKafBIEmxD P9WSAsfHMiR3QgMSggRG9 exqr6ILD2HHusJBLmMtH0 NDBcaGVhZGVyeTcyMFxmb 708BJF1NrKcTA5wI3Drr2 M2lW8ccHRqKTOgnUXfTzW zRIOfdb4lkVOjNUpam6Lv BRJ0hbA3yQLaeYRqCOEeO L06Wilpo4PjDccyw2ApX7 6xvTY1SScxc5zeED2rTwY 1fwZnKEfbi5mvrV1oAzC9 ESwhLP3lMX5gBKDizM0fw mxjXHBnYnJkcmhlYWRccG afsaWoVu0wkSftTYQ1OGy rP0sssA0rTgI6BVncW1hx zA2xRKy3MMeslNH6VTWtg A0gRA9nxyqhs1jrPFogZB rrERZayxS0tcDdVZWkfAY bV5LuuZ9vOXQxQM1krmqy d4brORE1BEskWQGnWNR7T rMwYVKez7Pmbgv9AbBml5 HjdHSaXAtjB93ts468CUO sdkAlJ4vkeCGhhwqnxWZp vrpsLSfzgsG7UNEeCCOzX WluXGYxXGZzMjBcbGFuZz EwMzNcaGljaFxmMVxkYmN yMTClJXmvR0tvJcBzEhCc FGYLdBUwwx7ahXdoIBglt GMprHGwnOL1sO4qEUUzaf Aaqc0tAIKgaCWJhUH8CBg ijjAsN1ixufijLPN9EAPc ULR6J8csDCSByfMfXKOhI LFejEPvMLBDVLD1TFZ9SC DhCHAWRYTeEOS5RWE4PNR wOTRccGFyXHBhclxwYXJk XHBsYWluXGYwXGZzMjRcc BhwxB5bUvBvKsXfGMtfJY 5xOXDfM2wzwIPySFRsZSO kJ2nnVpZbrE3unMmfVRqb ZjJcZnMyMFxsdHJjaCBMY URuapH0u7J2VAetyLHboj xmMVxmczIwXGxhbmcxMDM bJRaeP2mhRyFvIOWkqKar WUdpq3RjFEMoWWEdMsCtR CleBXT4j8M5VBrtjVGslw SVBzYHGX2waEEcgonzTR4 ELlxwbGFpblxmMVxmczIy GYexvuwxLEOxYVulD9kcL aNtGLLpvRrcTMrgh8HfMT YxXGZzMjJccGFyfQ== [facility] Work Phone: [facility] Work Phone: CNOVon 09-05-2024 CNOV Office Visit (GENSWS ) HOLLIE UGARTE ([id number]) 1940 F Date Time Provider Department 09/05/24 3:15 PM MAREK PETERSEN During your visit today, we recorded the following information about you: Deepa Petty RN 09/10/2024 6:01 AM Signed UNIVERSAL PROTOCOL / SAFETY CHECKLIST Procedure to be Performed: Excision of left shoulder skin lesion. Sign In: A Moment of CARE was completed. Personnel directly involved with the procedure wore the appropriate PPE (Personal Protective Equipment). No special equipment needed. Patient/Surrogate Stated/Verified: PATIENT VERIFIED(optional for EMERGENT procedures): Patient name, Date of , Relevant allergies, and The intended procedure Time Out Communication: Intended patient and procedure match the source documents. Consent documented and matches the intended procedure. No relevant labs, photos, and/or imaging studies were applicable for review. Correct side/site marked and visible. Medications required for procedure verified. No fire risk assessment and interventions applicable. No implant(s) inserted. Sign Out: SIGN OUT (optional for EMERGENT procedures): All specimen containers correctly labeled. No instruments, equipment or retained foreign bodies applicable. Post-procedure follow-up management communicated and Plan of Care Visit completed when applicable. IKE Perdue Rhonda, RN 09/05/2024 4:18 PM Signed The following instructions are important for you related to your office visit today with the [facility] General Surgeons. Instructions After SKIN EXCISION-SUTURES YOU MAY RESTART YOUR PLAVIX ON FRIDAY, SEPTEMBER 06, 2024. You can remove the dressing in two-three days. If the dressing becomes soaked or had significant drainage, the dressing should be changed. You do not need to leave a dressing on the wound after two-three days, but you may do so for comfort. You should keep the wound dry for the first two-three days. After that time, you may wash the wound with gentle soap and water. You may take acetaminophen or ibuprofen, as needed, for pain. The wound should not be immersed in a pool, bathtub, or even hot tub. If there is minor bleeding from this skin edge, you should hold pressure on the incision until the bleeding stops. If there is continued bleeding, you should contact our office immediately. If the wound shows signs of redness, inflammation, or purulent drainage, you should contact our office immediately. We prefer to check the incision and remove the stitches in our office when ready. Please make an appointment to return to our office in 1 week.Please do not remove the stitches yourself without approval from our office. If you note any additional difficulties, questions, or concerns, you should contact our office immediately @ [phone] and ask to be transferred to the General Surgery department. Deepa Petty RN 09/05/2024 5:15 PM Signed Sutures were placed in the incision line, consisting of 6 simple sutures and 1 mattress suture. Patient is scheduled to return in 10 days for a nurse visit. Dr. Petersen does not want all the sutures removed, please notify him when the patient is here. Also, pathology will need reviewed. IKE Perdue Richard T, MD 09/10/2024 6:01 AM Signed FOLLOW UP VISIT - SKIN LESION NAME: Hollie Hair [facility] NO.: [id number] DATE OF SERVICE: 09/05/2024 : 1940 REFERRING PHYSICIAN: Amrik Mejia MD Hollie is a patient I am following for a exophytic lesion on her left posterior shoulder. Hollie returns today for the procedure. Hollie has not taken aspirin or aspirin products for the past 7 days. VITALS: There were no vitals taken for this visit. On examination, she has a 1.5cm exophytic lesion on her posterior left shoulder PROCEDURE: EXCISION OF SKIN LESION The risks, benefits and anticipated outcomes of the procedure, the risks and benefits of the alternatives to the procedure, and the roles and tasks of the personnel to be involved, were discussed with the patient, and the patient consents to the procedure and agrees to proceed. I verify that I personally obtained the patient's consent. The patient`s skin was prepped and draped in the usual fashion. A combination of Lidocaine and Marcaine was injected into the skin. An elliptical incision was made around the lesion and was removed in its entirety. The specimen measured 4 by 2 cm. This was sent to pathology with a suture marking the superior medial aspect. The skin was then closed with interrupted 3-0 and 4-0 nylon sutures. The patient tolerated the procedure well. Assessment IMPRESSION: Excision suspicious left posterior shoulder lesion PLAN: If the patient notes any problems or signs of wound infections, the patient should contact me im (more content not included)... Normal [facility] SURGICAL PATHOLOGYon CASE REPORT Normal [facility] Comment on above: Order Comment: Speci men Type: BLOOD SPECIMEN Ordering Facility: [facility] Address: [address] [place] [address] Result Comment: Surg ical Pathology Report Case: [id number] Authorizing Provider: Marek Petersen MD Collected: 09/05/2024 04:06 PM Ordering Location: General Surgery Received: 09/05/2024 05:14 PM Pathologist: Jules Santacruz MD Specimen: Skin, Excision, left posterior shoulder Performed By: #### 1 9123-9, 55158-1, 19960-8 #### [facility] CLIA [id number] [address] [place] [address] [place] CLINICAL HISTORY Normal Diamond grossman [facility] Comment on above: Order Comment: Tejal srinivasan Type: BLOOD SPECIMEN Ordering Facility: [facility] Address: [address] [place] [address] Result Comment: abno rmal skin lesion Comment: left posterior shoulder Performed By: #### 1 9123-9, 76893-4, 92876-9 #### [facility] CLIA [id number] [address] [place] [address] [place] FINAL DIAGNOSIS Normal [facility] Comment on above: Order Comment: Tejal srinivasan Type: BLOOD SPECIMEN Ordering Facility: [facility] Address: [address] [place] [address] Result Comment: A. S kin, left posterior shoulder, excision: - Basal cell carcinoma, completely excised. PRINCE/ILENE/pat/09/06/2024 Performed By: #### 1 9123-9, 72730-4, 74327-5 #### [facility] CLIA [id number] [address] [place] [address] [place] FINAL PERFORMING LAB Normal [facility] Comment on above: Order Comment: Speci men Type: BLOOD SPECIMEN Ordering Facility: [facility] Address: [address] [place] [address] Result Comment: Diag nostic interpretation performed at [facility], [address] [place] [address] CLIA# [id number] Conservation Of Resources Commissioner: Michele Neff M.D. Performed By: #### 1 9123-9, 92943-5, 92169-6 #### [facility] CLIA [id number] [address] [place] [address] OF [facility] GROSS DESCRIPTION Normal [facility] Comment on above: Order Comment: Speci men Type: BLOOD SPECIMEN Ordering Facility: [facility] Address: [address] [place] [address] Result Comment: A. S kin, Excision Received in formalin is an elliptical shaped segment of skin and subcutaneous tissue measuring 2.3 x 1.7 x 0.9 cm. A suture is placed in the medial superior aspect, and is redesignated to the 12:00 tip. The skin is surface demonstrates an irregular banks-pink, elevated and scabbed area measuring 1.8 x 1.7 cm, and extends to both margins. The 3:00 margin is inked orange, the 9:00 margin is inked blue, and the deep margin is inked black. The specimen is sectioned and totally submitted as follows: A1 12:00 tip, A2 6:00 tip, A3-A5 body. SS September 06, 2024 12:46 AM Gross examination performed at [facility], [address] [place] [address] Performed By: #### 1 9123-9, 64843-2, 77627-2 #### [facility] CLIA [id number] [address] [address] STATES OF [facility] CNOVon 08-10-2024 CNOV Office Visit (GENSWS ) HOLLIE UGARTE ([id number]) 1940 F Date Time Provider Department 08/10/24 1:30 PM MAREK PETERSEN GENSWS During your visit today, we recorded the following information about you: Temperature Pulse Blood pressure Weight 97.2 degrees 89/minute 130/70 71.4 kg Height 1.499 m Marek Petersen MD 08/10/2024 4:32 PM Signed HISTORY AND PHYSICAL Hollie Ugarte 1940 REFERRING PHYSICIAN: Self CHIEF COMPLAINT: skin lesion HPI: The patient is a 84 year old female. She presents with a raised purple slightly ulcerated nodule on her left posterior shoulder. She has noticed a spot for a long time. She notes some discomfort on palpation and notes that she has dull aching in her shoulder at times. The patient is on Plavix and aspirin. She had an NSTEMI last year on November 05. 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 She is having no chest pain or other problems since. She has a history of both breast cancer and skin cancer. SIGNIFICANT MEDICAL PROBLEMS: PAST MEDICAL HISTORY Diagnosis Date Abdominal pain, right upper quadrant 09/13/2005 Multifactorial--muscu loskeletal and GI (?gastritis) Allergic rhinitis, cause unspecified [...] (peripheral) insufficiency Unspecified vitamin D deficiency 03/12/2008 OPERATIONS: PAST SURGICAL HISTORY Procedure Laterality Date CARPAL TUNNEL 12/01/10 left hand, [facility], Dr Kahn CHOLECYSTECTOMY 08/29/1995 Cholecystectomy CMBND ANTERPOST COLPORRAPHY W/CYSTO 2006 dr. hwang and lisha COLONOSCOPY FLX DX W/COLLJ SPEC WHEN PFRMD 01/30/2004 Colonoscopy MAL LESION NECK,HAND,SCAL 0.6-1CM 07/14/11 Exc. left post-auricular skin lesion MASTECTOMY 07/31/1998 left PAST SURGICAL HISTORY OF 12/01/10 Left middle trigger finger release, [facility], Dr Kahn REM LESION NEC,HND,SCAL 0.6-1.0CM 12/09/07 Exc. right frontal scalp lesion S SLING BLADR PELVI TOTL 7103 2006 lisha TOTAL ABDOMINAL HYSTERECT W/WO RMVL TUBE OVARY 03/07/1984 Hysterectomy, JERRY XCAPSL CTRC RMVL INSJ IO LENS PROSTH W/O ECP Cataract Removal CURRENT MEDICATIONS: Current Outpatient Medications Medication Sig Dispense Refill omeprazole (PRILOSEC) 40 mg capsule Take 40 mg by mouth once daily. albuterol HFA (VENTOLIN HFA) 90 mcg/actuation inhaler inhale 2 puffs as instructed every 4 hours as needed for wheezing / shortness of breath 18 g 3 fluticasone (FLONASE) 50 mcg/actuation nasal spray Use 2 Sprays in each nostril once daily. 3 Each 3 isosorbide mononitrate ER (IMDUR) 30 mg 24 hr tablet Take 1 tablet by mouth every afternoon. ergocalciferol 50,000 unit capsule (VITAMIN D2, DRISDOL) Take by mouth. BREO ELLIPTA 100-25 mcg/dose inhaler INHALE 1 PUFF DAILY with good oral care amLODIPine (NORVASC) 5 mg tablet take 1 tablet by mouth once daily 90 tablet 3 clopidogrel (PLAVIX) 75 mg tablet Take 1 tablet by mouth once daily. 90 tablet 3 metoprolol tartrate, short acting, (LOPRESSOR) 25 mg tablet Take 1 tablet by mouth two times a day. 180 tablet 3 penicillin V potassium 500 mg tablet Take 1 tablet by mouth once daily. 90 tablet 3 atorvastatin (LIPITOR) 40 mg tablet Take 1 tablet by mouth once daily. 90 tablet 3 BABY ASPIRIN ORAL Take 81 mg by mouth once daily. nitroglycerin sublingual (NITROQUICK) 0.4 mg SL tablet Dissolve 0.4 mg under the tongue every 5 minutes as needed for chest pain. fexofenadine (LETITIA) 180 mg tablet Take 1 tablet by mouth once daily. As directed 90 tablet 3 venlafaxine ER (EFFEXOR XR) 150 mg 24 hr capsule Take 1 capsule by mouth once daily. 90 capsule 3 ALPRAZolam (XANAX) 0.25 mg tablet Take 0.5-1 tablets by mouth once daily as needed for up to 180 days. 30 tablet 2 ascorbic acid/collagen hydr (COLLAGEN PLUS VITAMIN C ORAL) Take by mouth. acetaminophen (TYLENOL EXTRA STRENGTH) 500 mg tablet Take 2 tablets by mouth every 6 hours as needed for Pain. 60 tablet 3 TIMOPTIC 0.5 % EYE DROPS one drop each eye twice daily [address] (PROTONIX) 40 mg tablet Take 1 tablet by mouth daily before breakfast. Take on empty stomach, 1/2 hr before meal. (Patient not taking: Reported on 08/10/2024) 90 tablet 3 No current facility-administered medications for this visit. ALLERGIES: Amoxicillin, Macrobid [Nitrofurantoin Monohyd/M-Cryst], Percodan [Oxycodone-Aspirin] (more content not included)... Normal [facility] 12 Lead EKGon 07-21-2024 12 Lead EKG [facility] [address] [place] [address] 12 Lead EKG 07/21/24 1901 MR#: [id number] Acct: [id number] Name: HOLLIE UGARTE Rep #: [id number] : 1940 84 From: Maciel Abad MD Attending Dr: Status: DEP ER Ordering Dr: Ankush Torres MD Date: 07/21/24 Location: ED Sex: F C Admitted: Test Reason : CP Blood Pressure : / mmHG Vent. Rate : 101 BPM Atrial Rate : 101 BPM P-R Int : 174 ms QRS Dur : 090 ms QT Int : 358 ms P-R-T Axes : 034 -58 095 degrees QTc Int : 464 ms Sinus tachycardia Left anterior fascicular block Moderate voltage criteria for LVH, may be normal variant ( R in aVL , [place] product ) Possible Lateral infarct , age undetermined Abnormal ECG Confirmed by MACIEL ABAD MD ([id number]), purchase request editor CHARLY GONZALEZ ([id number]) on 07/23/2024 6:44:12 AM Referred By: JW Confirmed By:MACIEL ABAD MD 07/23/24 0644 Date Maciel Abad MD CC: Dr. Ankush Torres MD; Dr. Amrik Mejia MD Signed Normal Basic Metabolic Profile (BMP )on 07-21-2024 BUN/CRE 21.0 RATIO High 10-20 Comment on above: Order Comment: 1 Y Performed By: #### L 501.5425, L500.2500, L100.0100 #### Laboratory [address] [place], [address] CA,Total 9.0 mg/dL Normal 8.5-10.1 Comment on above: Order Comment: 1 Y Performed By: #### L 501.5425, L500.2500, L100.0100 #### Laboratory [address] [place], [address] Chloride [Moles/Vol] 107 mmol/L Normal 98-107 [facility] Comment on above: Order Comment: 1 Y Performed By: #### L 501.5425, L500.2500, L100.0100 #### Laboratory [address] [place], [address] CO2 [Moles/Vol] 26.0 mmol/L Normal 21.0-32.0 Comment on above: Order Comment: 1 Y Performed By: #### L 501.5425, L500.2500, L100.0100 #### Laboratory [address] [place], [address] Creatinine [Mass/Vol] 1.19 mg/dL High 0.55-1.02 [facility] Comment on above: Order Comment: 1 Y Result Comment: The validity of the calculated GFR GFRAA in patients over 70 years has not been determined. Clinical correlation is essential. Performed By: #### L 501.5425, L500.2500, L100.0100 #### Laboratory [address] [place], [address] EST GFR - AA 56 mL/min Low >60 Comment on above: Order Comment: 1 Y Result Comment: Afri can [place] GFR Calc Performed By: #### L 501.5425, L500.2500, L100.0100 #### Laboratory [address] [place], [address] GAP 6 Normal 5-15 Comment on above: Order Comment: 1 Y Performed By: #### L 501.5425, L500.2500, L100.0100 #### Laboratory [address] [place], [address] GFR/1.73 sq M.predicted among non-blacks MDRD (S/P/Bld) [Vol rate/Area] 46 mL/min/{1.73_m2} Low >60 Comment on above: Order Comment: 1 Y Result Comment: Non- GFR Calc Performed By: #### L 501.5425, L500.2500, L100.0100 #### Laboratory [address] [place], [address] Glucose [Mass/Vol] 185 mg/dL High 74-106 [facility] Comment on above: Order Comment: 1 Y Result Comment: Fast ing Glucose result greater than or equal to 126 mg/dL suggests DIABETES MELLITUS per A.D.A. criteria. Performed By: #### L 501.5425, L500.2500, L100.0100 #### Laboratory [address] [place], [address] Potassium [Moles/Vol] 3.7 mmol/L Normal 3.5-5.1 [facility] Comment on above: Order Comment: 1 Y Performed By: #### L 501.5425, L500.2500, L100.0100 #### Laboratory [address] [place], [address] Sodium [Moles/Vol] 139 mmol/L Normal 136-145 [facility] Comment on above: Order Comment: 1 Y Performed By: #### L 501.5425, L500.2500, L100.0100 #### Laboratory [address] [place], [address] Urea nitrogen [Mass/Vol] 25 mg/dL High 7-18 Comment on above: Order Comment: 1 Y Performed By: #### L 501.5425, L500.2500, L100.0100 #### Laboratory [address] [place], [address] CBC W/Diff, Automatedon 09-0 7-2023 Absolute Lymph 2.01 X10 3/uL Normal 0.83-4.51 Comment on above: Performed By: #### L 501.5425, L500.2500, L100.0100 #### Laboratory [address] [place], [address] Absolute Neut 4.7 X10 3/uL Normal 2.0-7.7 Comment on above: Performed By: #### L 501.5425, L500.2500, L100.0100 #### Laboratory [address] [place], [address] Basophils/100 WBC (Bld) 1.3 % High 0-1 [facility] Comment on above: Performed By: #### L 501.5425, L500.2500, L100.0100 #### Laboratory [address] [place], [address] Eosinophils/100 WBC (Bld) 5.1 % High 0-5 Comment on above: Performed By: #### L 501.5425, L500.2500, L100.0100 #### Laboratory [address] [place], [address] Erythrocyte distribution width (RBC) [Ratio] 13.7 % Normal 11.6-14.6 Comment on above: Performed By: #### L 501.5425, L500.2500, L100.0100 #### Laboratory [address] [place], [address] Hematocrit (Bld) [Volume fraction] 43.6 % Normal 37-47 Comment on above: Performed By: #### L 501.5425, L500.2500, L100.0100 #### Laboratory [address] [place], [address] Hemoglobin (Bld) [Mass/Vol] 14.1 g/dL Normal 12.0-15.0 Comment on above: Performed By: #### L 501.5425, L500.2500, L100.0100 #### Laboratory [address] [place], [address] IG% 0.400 Normal 0.0-0.9 Comment on above: Result Comment: IG% - Immature Granulocytes (promyelocytes, myelocytes and metamyelocytes) > 1% indicates that a LEFT SHIFT is Present. Performed By: #### L 501.5425, L500.2500, L100.0100 #### Laboratory [address] [place], [address] Lymphocytes/100 WBC (Bld) 25.4 % Normal 19-41 Comment on above: Performed By: #### L 501.5425, L500.2500, L100.0100 #### Laboratory [address] [place], [address] MCH (RBC) [Entitic mass] 28.6 pg Normal 27.0-32.0 Comment on above: Performed By: #### L 501.5425, L500.2500, L100.0100 #### Laboratory [address] [place], [address] MCHC (RBC) [Mass/Vol] 32.3 g/dL Normal 32-36 [facility] Comment on above: Performed By: #### L 501.5425, L500.2500, L100.0100 #### Laboratory [address] [place], [address] MCV (RBC) [Entitic vol] 88.4 fL Normal 81-99 [facility] Comment on above: Performed By: #### L 501.5425, L500.2500, L100.0100 #### Laboratory [address] [place], [address] Monocytes/100 WBC (Bld) 8.2 % Normal 0-10 [facility] Comment on above: Performed By: #### L 501.5425, L500.2500, L100.0100 #### Laboratory [address] [place], [address] Neutrophils/100 WBC (Bld) 59.6 % Normal 47-70 Comment on above: Performed By: #### L 501.5425, L500.2500, L100.0100 #### Laboratory [address] [place], [address] Nucleated RBC (Bld) [#/Vol] 0 10*3/uL Normal 0-5 Comment on above: Performed By: #### L 501.5425, L500.2500, L100.0100 #### Laboratory [address] [place], [address] Platelet mean volume (Bld) [Entitic vol] 10.3 fL Normal 6.2-12.0 Comment on above: Performed By: #### L 501.5425, L500.2500, L100.0100 #### Laboratory [address] [place], [address] Platelets (Bld) [#/Vol] 363 10*3/uL Normal 150-450 Comment on above: Performed By: #### L 501.5425, L500.2500, L100.0100 #### Laboratory [address] [place], [address] RBC (Bld) [#/Vol] 4.93 10*6/uL Normal 4.2-5.4 [facility] Comment on above: Performed By: #### L 501.5425, L500.2500, L100.0100 #### Laboratory [address] [place], [address] RDW SD 44.3 fl High 35.1-43.9 Comment on above: Performed By: #### L 501.5425, L500.2500, L100.0100 #### Laboratory [address] [place], [address] WBC (Bld) [#/Vol] 7.9 10*3/uL Normal 4.4-11.0 [facility] Comment on above: Performed By: #### L 501.5425, L500.2500, L100.0100 #### Laboratory [address] [place], [address] Chest 1 View (Portable)on Chest 1 View (Portable) [facility] Imaging Services [address] [place] [address] Chest 1 View (Portable) MR#: [id number] Acct: [id number] Name: HOLLIE UGARTE Rep #: [id number] : 1940 F 84 From: Adam Grossman PCP: Dr. Amrik Mejia MD Status: REG ER Study: Chest 1 View (Portable) Date of Exam: 07/21/24 Exam# [id number] Ordering Dr: Ankush Torres MD [id number] STUDY: X-RAY CHEST REASON FOR EXAM: Female, 84 years old. chest pain TECHNIQUE: Single frontal view of the chest. COMPARISON: Chest x-ray February 15, 2024 FINDINGS: Surgical clips left axilla. Interstitial infiltrates unchanged in the right. There is no demonstrated pleural abnormality. Normal size heart. Normal mediastinum and amy. Normal visualized pulmonary arteries. Normal visualized aortic arch and descending thoracic aorta. Mild dextroconvex scoliosis. Normal visualized ribs, clavicles, and shoulders. There is no demonstrated abnormality of the visualized soft tissue structures of the upper abdomen. RAD/Chest 1 View (Portable) IMPRESSION: Mild interstitial infiltrates on the right unchanged. Electronically Signed: Adam Pulido MD at 20:07 EDT Reading Location ID and State: [facility] / [place] Tel , Service support , CC: Dr. Ankush Torres MD; Dr. Amrik Mejia MD Vacation Planner: Signed Normal Emergency Department Summary on 07-21-2024 Emergency Department Summary [facility] Medical Records Department [address] [place] [address] Emergency Department Summary 07/21/24 MR#: [id number] Acct: [id number] Name: HOLLIE UGARTE Rep #: [id number] : 1940 84 From: Ankush Torres MD PCP: Dr. Amrik Mejia MD Status:REG ER Location: ED HPI History of Present Illness Chief Complaint: Chest Pain Detail of Chief Complaint: Chest pain rating to both arms. At rest. Informant: patient Onset/Context/Timing Onset: Today Activity at onset: sudden Timing: Continuous Quality: Positive for Heaviness Location: Substernal Current Severity: Mild Maximum Severity: Moderate Worsened By: Nothing Relieved By: Nothing Associated Symptoms: Positive for Nausea and Dyspnea; Negative for Vomiting, Diaphoresis, Cough, Fever, Lightheadedness, Acid Reflux or Palpitations Narrative Narrative: 84-year-old female history of CAD with prior UT with cardiac stents. On aspirin only. No other anticoagulants. States that tonight while eating dinner around 530 she started getting tingling to both arms and then developed midsternal chest pain. She describes it as a pressure. No change with position. She took a nitro at home without any relief squad gave her nitro and aspirin without any relief. She is on it first came on she did get mildly short of breath and nauseated with it no diaphoresis. She denies any recent exertional dyspnea or exertional chest pain. Prior Similar Symptoms: Yes Recent Illness/Hospitalizati on: No CVD Risk Factors: Negative for Diabetes or Smoking PE Risk Factors: Negative for Recent Travel/Surgery, Recent Immobilization, Prior DVT or PE or OCP + Smoking + >/=35 TAD Risk Factors: Negative for Marfan's Syndrome, Hypertension or Family History [facility] Medical History CAD (coronary artery disease) Breast cancer Anxiety and depression Hypertension Home Medications ???Medication ???Instructions ???Recorded ???Last Taken ???Type alprazolam 0.25 mg tablet 0.125 - 0.25 mg PO BID PRN Anxiety 10/14/15 01/21/24 History amlodipine 5 mg tablet 5 mg PO DAILY blood prssure 10/14/15 01/27/24 History timolol maleate 0.5 % eye drops 1 drp BID glaucoma 10/14/15 01/27/24 History ergocalciferol (vitamin D2) 1,250 50,000 unit PO UD supplement 01/26/16 01/22/24 History mcg (50,000 unit) capsule (Vitamin D2) fluticasone furoate 200 1 puff inhalation DAILY lungs 12/21/18 03/15/24 History mcg-vilanterol 25 mcg/dose inhalation powder (Breo Ellipta) omeprazole 40 mg capsule,delayed 40 mg PO DAILY gerd 11/03/18 01/27/24 History release penicillin V potassium 500 mg 500 mg PO DAILY prophylaxis 09/12/20 01/27/24 History tablet venlafaxine 150 mg 150 mg PO DAILY depression 09/12/20 01/27/24 History capsule,extended release 24 hr albuterol sulfate 90 mcg/actuation 2 inh inhalation Q4H PRN Wheezing 08/31/22 08/30/22 History aerosol inhaler fexofenadine 180 mg tablet 180 mg PO DAILY allergies 08/31/22 01/27/24 History fluticasone propionate 50 2 spray intranasal DAILY PRN 08/31/22 2 Days Ago History mcg/actuation nasal allergies 08/29/22 spray,suspension aspirin 81 mg chewable tablet 81 mg PO DAILYCM #0 tabs 11/06/23 01/27/24 Rx nitroglycerin 0.4 mg sublingual 0.4 mg sublingual Q5M PRN Chest 11/06/23 Unknown Rx tablet pain #10 tabs atorvastatin 40 mg tablet 40 mg PO QHS #90 tabs 12/09/23 01/26/24 Rx clopidogrel 75 mg tablet 75 mg PO DAILY #90 tabs 12/09/23 01/27/24 Rx isosorbide mononitrate 30 mg 30 mg PO DAILY #30 tabs 12/09/23 01/27/24 Rx tablet,extended release 24 hr metoprolol tartrate 25 mg tablet 25 mg PO BID #180 tabs 12/09/23 01/27/24 Rx albuterol sulfate 2.5 mg/3 mL 2.5 mg inhalation BID 07/21/24 Unknown History (0.083 %) solution for nebulization Allergy/AdvReac Type Severity Reaction Status Date / Time hydrogen peroxide AdvReac Other Verified 07/21/24 18:59 oxycodone HCl (From Percodan) AdvReac Nausea Verified 07/21/24 18:59 oxycodone terephthalate AdvReac Nausea Verified 07/21/24 18:59 (From Percodan) Sulfa (Sulfonamide AdvReac Nausea/Vom/ Verified 09/07/24 18:59 Antibiotics) Diarrhea Surgical History Stented coronary artery ( 11/05/23) Hx of mastectomy Hx of tonsillectomy Hx of cholecystectomy Hx of appendectomy H/O: hysterectomy Social History Smoking Status: Never smoker ROS ROS ED ROS Narrative Chest pain this evening. Denies any recent illness. Denies abdominal pain. Denies any recent exertional dyspnea or exertional chest pain. Constitutional Constitutional ED: Denies chills or fever(s) Eyes Eyes: Reports none ENT ENT ED: Denies ear pain Cardiovascular Cardiovascular: (more content not included)... Normal L501.4020on 07-21-2024 TROPONIN-I HS 18 pg/mL Normal 3.0-54.0 Comment on above: Result Comment: Plea se Note: New Test Units and Gender Specific Reference Ranges. For more information see Policy Stat Procedure [place] High Sensitivity Troponin (TNIH) and attachments. Performed By: #### L 501.4020 #### Laboratory [address] [place], [place], [address] L501.5425on 07-21-2024 TROPONIN-I HS 15 pg/mL Normal 3.0-54.0 Comment on above: Order Comment: 1 Y Result Comment: Plea se Note: New Test Units and Gender Specific Reference Ranges. For more information see Policy Stat Procedure [place] High Sensitivity Troponin (TNIH) and attachments. Performed By: #### L 501.5425, L500.2500, L100.0100 #### Laboratory [address] [place], [address] 25(OH)D3 [facility] 2023 25-hydroxyvitamin D3 [Mass/Vol] 89.1 ng/mL High 31.0-80.0 [facility] Comment on above: Order Comment: Speci men Type: BLOOD SPECIMEN Ordering Facility: [facility] Address: [address] [place] [address] [place] [address] Performed By: #### 1 9123-9, 90295-2, 89681-4 #### [facility] CLIA [id number] [address] [place] [address] [place] CBC panel Auto (Bld)on 05-18 Erythrocyte distribution width (RBC) [Ratio] 13.8 % Normal 11.5-15.0 [facility] Comment on above: Order Comment: Speci men Type: BLOOD SPECIMEN Ordering Facility: [facility] Address: [address] [place] [address] Performed By: #### 1 9123-9, 36219-4, 71814-8 #### [facility] CLIA [id number] [address] [place] [address] [place] Hematocrit (Bld) [Volume fraction] 45.5 % Normal 36.0-46.0 [facility] Comment on above: Order Comment: Speci men Type: BLOOD SPECIMEN Ordering Facility: [facility] Address: [address] [place] [address] Performed By: #### 1 9123-9, 85285-0, 94926-2 #### [facility] CLIA [id number] [address] [place] [address] [place] Hemoglobin (Bld) [Mass/Vol] 14.4 g/dL Normal 11.5-15.5 [facility] Comment on above: Order Comment: Speci men Type: BLOOD SPECIMEN Ordering Facility: [facility] Address: [address] [place] [address] Performed By: #### 1 9123-9, 99118-3, 04263-4 #### [facility] CLIA [id number] [address] [place] [address] [place] MCH (RBC) [Entitic mass] 28.6 pg Normal 26.0-34.0 [facility] Comment on above: Order Comment: Speci men Type: BLOOD SPECIMEN Ordering Facility: [facility] Address: [address] [place] [address] Performed By: #### 1 9123-9, 72206-2, 22846-1 #### [facility] CLIA [id number] [address] [place] [address] [place] MCHC (RBC) [Mass/Vol] 31.6 g/dL Normal 30.5-36.0 [facility] Comment on above: Order Comment: Speci men Type: BLOOD SPECIMEN Ordering Facility: [facility] Address: [address] [place] [address] Performed By: #### 1 9123-9, 80619-0, 28828-3 #### [facility] CLIA [id number] [address] [place] [address] [place] MCV (RBC) [Entitic vol] 90.3 fL Normal 80.0-100.0 [facility] Comment on above: Order Comment: Speci men Type: BLOOD SPECIMEN Ordering Facility: [facility] Address: [address] [place] [address] Performed By: #### 1 9123-9, 61932-4, 27054-2 #### [facility] CLIA [id number] [address] [place] [address] [place] Nucleated RBC (Bld) [#/Vol] 10*3/uL Normal <0.01 [facility] Comment on above: Order Comment: Speci men Type: BLOOD SPECIMEN Ordering Facility: [facility] Address: [address] [place] [address] Performed By: #### 1 9123-9, 40598-3, 79216-5 #### [facility] CLIA [id number] [address] [place] [address] [place] Platelet mean volume (Bld) [Entitic vol] 10.2 fL Normal 9.0-12.7 [facility] Comment on above: Order Comment: Speci men Type: BLOOD SPECIMEN Ordering Facility: [facility] Address: [address] [place] [address] Performed By: #### 1 9123-9, 20052-1, 86959-7 #### [facility] CLIA [id number] [address] [place] [address] [place] Platelets (Bld) [#/Vol] 368 10*3/uL Normal 150-400 [facility] Comment on above: Order Comment: Speci men Type: BLOOD SPECIMEN Ordering Facility: [facility] Address: [address] [place] [address] Performed By: #### 1 9123-9, 55633-5, 52706-2 #### [facility] CLIA [id number] [address] [place] [address] [place] RBC (Bld) [#/Vol] 5.04 10*6/uL Normal 3.90-5.[address] [facility] Comment on above: Order Comment: Speci men Type: BLOOD SPECIMEN Ordering Facility: [facility] Address: [address] [place] [address] Performed By: #### 1 9123-9, 77582-3, 75597-2 #### [facility] CLIA [id number] [address] [place] [address] [place] WBC (Bld) [#/Vol] 7.17 10*3/uL Normal 3.70-11.[address] [facility] Comment on above: Order Comment: Speci men Type: BLOOD SPECIMEN Ordering Facility: [facility] Address: [address] [place] [address] Performed By: #### 1 9123-9, 29081-6, 18585-0 #### [facility] CLIA [id number] [address] [place] [address] [place] CNOVon 05-18-2024 CNOV Office Visit (INTMWS ) HOLLIE UGARTE ([id number]) 1940 F Date Time Provider Department 05/18/24 9:40 AM MIRYAM BOND During your visit today, we recorded the following information about you: Pulse Blood pressure Weight 64/minute 112/64 69.4 kg Miryam Bond APRN.[employer] 05/18/2024 10:00 AM Signed SUBJECTIVE Hollie Ugarte is a 83 year old female here today for a check up on her medical problems. Chief Complaint Patient presents with: F/U 6 months HPI Hollie Ugarte is a 83 year old female. She is an established patient of Amrik Mejia MD. Here today for a routine 6 month follow up. Overall doing well. She was seen this past February for follow up on chest pain. None since then, seeing cardiology. Sleep is okay, gets up to urinate at times. Appetite is good. Reflux controlled. No recent chest pains or chest tightness or shortness of breath. Follows with cardiology, [facility]. Remission from breast cancer since 1997. Would like COVID booster today. Mood stable. Her medications were reviewed today and her list is now up to date. Medications Current Outpatient Medications Medication Sig albuterol HFA (VENTOLIN HFA) 90 mcg/actuation inhaler inhale 2 puffs as instructed every 4 hours as needed for wheezing / shortness of breath fluticasone (FLONASE) 50 mcg/actuation nasal spray Use 2 Sprays in each nostril once daily. isosorbide mononitrate ER (IMDUR) 30 mg 24 hr tablet Take 1 tablet by mouth every afternoon. ergocalciferol 50,000 unit capsule (VITAMIN D2, DRISDOL) Take by mouth. BREO ELLIPTA 100-25 mcg/dose inhaler INHALE 1 PUFF DAILY with good oral care amLODIPine (NORVASC) 5 mg tablet take 1 tablet by mouth once daily clopidogrel (PLAVIX) 75 mg tablet Take 1 tablet by mouth once daily. metoprolol tartrate, short acting, (LOPRESSOR) 25 mg tablet Take 1 tablet by mouth two times a day. pantoprazole DR (PROTONIX) 40 mg tablet Take 1 tablet by mouth daily before breakfast. Take on empty stomach, 1/2 hr before meal. penicillin V potassium 500 mg tablet Take 1 tablet by mouth once daily. atorvastatin (LIPITOR) 40 mg tablet Take 1 tablet by mouth once daily. BABY ASPIRIN ORAL Take 81 mg by mouth once daily. nitroglycerin sublingual (NITROQUICK) 0.4 mg SL tablet Dissolve 0.4 mg under the tongue every 5 minutes as needed for chest pain. fexofenadine (LETITIA) 180 mg tablet Take 1 tablet by mouth once daily. As directed venlafaxine ER (EFFEXOR XR) 150 mg 24 hr capsule Take 1 capsule by mouth once daily. ALPRAZolam (XANAX) 0.25 mg tablet Take 0.5-1 tablets by mouth once daily as needed for up to 180 days. ascorbic acid/collagen hydr (COLLAGEN PLUS VITAMIN C ORAL) Take by mouth. acetaminophen (TYLENOL EXTRA STRENGTH) 500 mg tablet Take 2 tablets by mouth every 6 hours as needed for Pain. TIMOPTIC 0.5 % EYE DROPS one drop each eye twice daily No current facility-administered medications for this visit. ALLERGIES Allergen Reactions Amoxicillin GI Upset high doses -diarrhea Macrobid [Nitrofura* Diarrhea Percodan [Oxycodone* Unknown Polysporin [Bacitra* Sulfa (Sulfonamide * ACTIVE PROBLEM LIST Obesity, Class I, Bmi 30-34.9 - 05/18/2024 Syncope - 06/05/2019 Vitamin D Deficiency - [...] Comment: right sacral area from prior shingles Unspecified Hemorrhoids Without Mention of Complication Comment: [...] rarely Drug use: Never Review of Systems Constitutional: Negative. Respiratory: Negative. Cardiovascular: Negative. OBJECTIVE BP 112/64 Pulse 64 Wt 153 lb (69.4kg) SpO2 97% Physical Exam Vitals and nursing note reviewed. Constitutional: General: She is awake. She is not in acute distress. Appearance: Normal appearance. She is well-developed and well-groomed. She is not ill-appea (more content not included)... Normal [facility] Comprehensive metabolic 2000 panelon 05-18-2024 Albumin [Mass/Vol] 4.0 g/dL Normal 3.9-4.9 [facility] Comment on above: Order Comment: Speci craig Type: BLOOD SPECIMEN Ordering Facility: [facility] Address: [address] [place] [address] Performed By: #### 1 9123-9, 19681-2, 67232-6 #### [facility] CLIA [id number] [address] [place] [address] [place] ALP [Catalytic activity/Vol] 100 U/L Normal 34-123 [facility] Comment on above: Order Comment: Raginii craig Type: BLOOD SPECIMEN Ordering Facility: [facility] Address: [address] [place] [address] Performed By: #### 1 9123-9, 52932-8, 17050-0 #### [facility] CLIA [id number] [address] [place] [address] [place] ALT [Catalytic activity/Vol] 13 U/L Normal 7-38 [facility] Comment on above: Order Comment: Speci men Type: BLOOD SPECIMEN Ordering Facility: [facility] Address: [address] [place] [address] Performed By: #### 1 9123-9, 55348-5, 41728-7 #### [facility] CLIA [id number] [address] [place], [place] [id number] [place] Anion gap [Moles/Vol] 13 mmol/L Normal 8-15 [facility] Comment on above: Order Comment: Speci men Type: BLOOD SPECIMEN Ordering Facility: [facility] Address: [address] [place] [address] Performed By: #### 1 9123-9, 04053-8, 46038-4 #### [facility] CLIA [id number] [address] [place] [address] [place] AST [Catalytic activity/Vol] 14 U/L Normal 13-35 [facility] Comment on above: Order Comment: Speci men Type: BLOOD SPECIMEN Ordering Facility: [facility] Address: [address] [place] [address] Performed By: #### 1 9123-9, 06065-7, 89491-0 #### [facility] CLIA [id number] [address] [place] [address] [place] Bilirubin [Mass/Vol] 0.5 mg/dL Normal 0.2-1.3 [facility] Comment on above: Order Comment: Speci men Type: BLOOD SPECIMEN Ordering Facility: [facility] Address: [address] [place] [address] Performed By: #### 1 9123-9, 92118-2, 17388-0 #### [facility] CLIA [id number] [address] [place] [address] [place] Calcium [Mass/Vol] 9.3 mg/dL Normal 8.5-10.2 [facility] Comment on above: Order Comment: Speci men Type: BLOOD SPECIMEN Ordering Facility: [facility] Address: [address] [place] [address] Performed By: #### 1 9123-9, 30246-4, 95331-8 #### [facility] CLIA [id number] [address] [place] [address] [place] Chloride [Moles/Vol] 104 mmol/L Normal 98-107 [facility] Comment on above: Order Comment: Speci men Type: BLOOD SPECIMEN Ordering Facility: [facility] Address: [address] [place] [address] Performed By: #### 1 9123-9, 17730-9, 19732-7 #### [facility] CLIA [id number] [address] [place] [address] [place] CO2 [Moles/Vol] 23 mmol/L Normal 22-30 [facility] Comment on above: Order Comment: Speci men Type: BLOOD SPECIMEN Ordering Facility: [facility] Address: [address] [place] [address] Performed By: #### 1 9123-9, 38949-6, 93003-3 #### [facility] CLIA [id number] [address] [place] [address] [place] Creatinine [Mass/Vol] 1.05 mg/dL High 0.58-0.96 [facility] Comment on above: Order Comment: Speci men Type: BLOOD SPECIMEN Ordering Facility: [facility] Address: [address] [place] [address] Performed By: #### 1 9123-9, 64978-8, 49608-2 #### [facility] CLIA [id number] [address] [place] [address] [place] Creatinine and Glomerular filtration rate.predicted panel (S/P/Bld) 53 mL/min/1.73m??? Low >=60 [facility] Comment on above: Order Comment: Speci men Type: BLOOD SPECIMEN Ordering Facility: [facility] Address: [address] [place] [address] Result Comment: Donna mated Glomerular Filtration Rate (eGFR) is calculated using the 2020 CKD-EPI creatinine equation. This equation utilizes serum creatinine, sex, and age as parameters. The creatinine assay has traceable calibration to isotope dilution-mass spectrometry. Refer to KDIGO guidelines for clinical interpretation. In patients with unstable renal function, e.g. those with acute kidney injury, the eGFR may not accurately reflect actual GFR. Performed By: #### 1 23-9, 69634-0, 53177-7 #### [facility] CLIA [id number] [address] [place] [address] [place] Glucose [Mass/Vol] 103 mg/dL High 74-99 [facility] Comment on above: Order Comment: Tejal srinivasan Type: BLOOD SPECIMEN Ordering Facility: [facility] Address: [address] [place] [address] Result Comment: The [place] Diabetes Association (ADA) provides guidance for cutoff values for fasting glucose and random glucose. The ADA defines fasting as no caloric intake for at least 8 hours. Fasting plasma glucose results between 100 to 125 [...] Standards of Medical Care in Diabetes 2016, [place] [employer]. Diabetes Care. 2016.39(Suppl 1). Performed By: #### 1 9123-9, 03642-6, 56980-8 #### [facility] CLIA [id number] [address] [place] [address] [place] Potassium [Moles/Vol] 4.6 mmol/L Normal 3.7-5.1 [facility] Comment on above: Order Comment: Tejal srinivasan Type: BLOOD SPECIMEN Ordering Facility: [facility] Address: [address] [place] [address] Performed By: #### 1 9123-9, 52118-1, #### [facility] CLIA [id number] [address] [place] [address] [place] Protein [Mass/Vol] 6.7 g/dL Normal 6.3-8.0 [facility] Comment on above: Order Comment: Speci men Type: BLOOD SPECIMEN Ordering Facility: [facility] Address: [address] [place] [address] Performed By: #### 1 9123-9, 72911-4, 58624-5 #### [facility] CLIA [id number] [address] [place] [address] [place] Sodium [Moles/Vol] 140 mmol/L Normal 136-144 [facility] Comment on above: Order Comment: Speci men Type: BLOOD SPECIMEN Ordering Facility: [facility] Address: [address] [place] [address] Performed By: #### 1 9123-9, 13204-0, 07262-3 #### [facility] CLIA [id number] [address] [place] [address] [place] Urea nitrogen [Mass/Vol] 19 mg/dL Normal 7-21 [facility] Comment on above: Order Comment: Speci men Type: BLOOD SPECIMEN Ordering Facility: [facility] Address: [address] [place] [address] Performed By: #### 1 9123-9, 46969-8, 69899-7 #### [facility] CLIA [id number] [address] [place] [address] [place] Lipid 1996 panelon 4 Cholesterol [Mass/Vol] 134 mg/dL Normal <200 [facility] Comment on above: Order Comment: Speci men Type: BLOOD SPECIMEN Ordering Facility: [facility] Address: [address] [place] [address] Result Comment: <200 mg/dL, Desirable 200-239 mg/dL, Borderline high >239 mg/dL, High Performed By: #### 1 9123-9, 05290-8, 02686-3 #### [facility] CLIA [id number] [address] [place] [address] [place] Cholesterol in HDL [Mass/Vol] 41 mg/dL Normal >39 [facility] Comment on above: Order Comment: Tejal craig Type: BLOOD SPECIMEN Ordering Facility: [facility] Address: [address] [place] [address] Result Comment: 40-5 9 mg/dL, Acceptable >59 mg/dL, High: Negative risk factor for coronary heart disease <40 mg/dL, Low: Positive risk factor for coronary heart disease Performed By: #### 1 9123-9, 65835-5, 32713-3 #### [facility] CLIA [id number] [address] [place] [address] Cholesterol in LDL [Mass/Vol] 46 mg/dL Normal <100 [facility] Comment on above: Order Comment: Tejal srinivasan Type: BLOOD SPECIMEN Ordering Facility: [facility] Address: [address] [place] [address] Result Comment: <100 mg/dL, Optimal 100-129 mg/dL, Near optimal/above optimal 130-159 mg/dL, Borderline high 160-189 mg/dL, High >189 mg/dL, Very high Secondary prevention optimal LDL Cholesterol levels are recommended to be < 70 mg/dL Performed By: #### 1 9123-9, 04806-4, 60429-3 #### [facility] CLIA [id number] [address] [place] [address] OF [facility] Cholesterol in LDL/Cholesterol in HDL [Mass ratio] 1.12 {ratio} Normal <2.54 [facility] Comment on above: Order Comment: Raginigasper srinivasan Type: BLOOD SPECIMEN Ordering Facility: [facility] Address: [address] [place] [address] Result Comment: Sawyer guerrero: 1. National Cholesterol Education Program ATP III Guideline At-A-Glance Quick Desk Reference: National Heart, Lung, and Blood [place]. National Institutes of Health. 2001: NIH Publication No. 01-3305. 2. An International Atherosclerosis Society position paper: global recommendations for the management of dyslipidemia: executive summary, Atherosclerosis. 2014: 232(2):410-413. Performed By: #### 1 9123-9, 58177-0, 76380-8 #### [facility] CLIA [id number] [address] [place] [address] [place] Cholesterol in VLDL [Mass/Vol] 47 mg/dL High <30 [facility] Comment on above: Order Comment: Speci men Type: BLOOD SPECIMEN Ordering Facility: [facility] Address: [address] [place] [address] Performed By: #### 1 9123-9, 46045-0, 89984-3 #### [facility] CLIA [id number] [address] [place] [address] [place] Cholesterol non HDL [Mass/Vol] 93 mg/dL Normal <130 [facility] Comment on above: Order Comment: Speci men Type: BLOOD SPECIMEN Ordering Facility: [facility] Address: [address] [place] [address] Result Comment: <130 mg/dL, Optimal 130-159 mg/dL, Near optimal/above optimal 160-189 mg/dL, Borderline high 190-219 mg/dL, High >219 mg/dL, Very high Secondary prevention optimal non HDL Cholesterol levels are recommended to be <100 mg/dL Performed By: #### 1 9123-9, 51185-8, 77103-2 #### [facility] CLIA [id number] [address] [place] [address] [place] Cholesterol.total/Choles terol in HDL [Mass ratio] 3.27 {ratio} Normal <5.10 [facility] Comment on above: Order Comment: Speci men Type: BLOOD SPECIMEN Ordering Facility: [facility] Address: [address] [place] [address] Performed By: #### 1 9123-9, 58068-8, 23388-5 #### [facility] CLIA [id number] [address] [place] [address] [place] FASTING TIME 15 hrs Normal [facility] Comment on above: Order Comment: Speci men Type: BLOOD SPECIMEN Ordering Facility: [facility] Address: [address] [place] [address] Performed By: #### 1 9123-9, 54272-9, 51881-3 #### [facility] CLIA [id number] [address] [place] [address] [place] Triglyceride [Mass/Vol] 237 mg/dL High <150 [facility] Comment on above: Order Comment: Speci men Type: BLOOD SPECIMEN Ordering Facility: [facility] Address: [address] [place] [address] Result Comment: <150 mg/dL, Normal 150-199 mg/dL, Borderline high 200-499 mg/dL, High >499 mg/dL, Very high Performed By: #### 1 9123-9, 50700-6, 54437-0 #### [facility] CLIA [id number] [address] [place] [address] [place] [facility] Magnesium [Mass/Vol] 2.0 mg/dL Normal 1.7-2.3 [facility] Comment on above: Order Comment: Speci men Type: BLOOD SPECIMEN Ordering Facility: [facility] Address: [address] [place] [address] Performed By: #### 1 9123-9, 07718-4, 55108-4 #### [facility] CLIA [id number] [address] [place] [address] [place] Absolute lymphocyte countOrd ered By: Amena Shine on 02-15-2024 Lymphocytes Auto (Unsp spec) [#/Vol] 1.68 10*3/uL 0.83-4.51 Automated lymphocyte count a s percentage of total leukocytesOrdered By: Amena Shine on 02-15-2024 Lymphocytes/100 WBC Auto (Unsp spec) 25.7 % 19-41 Basophil percentageOrdered B y: Amena Shine on 02-15-2024 Basophils/100 WBC (Bld) 1.1 % 0-1 [facility] Chloride [Moles/Vol] 112 mmol/L 98-107 [facility] Eosinophils/100 WBC (Bld) 4.7 % 0-5 Glucose [Mass/Vol] 100 mg/dL 74-106 [facility] Comment on above: Fasting Glucose resu lt from 100 to 125 mg/dL suggests IMPAIRED HOMEOSTASIS per A.D.A. criteria. Hemoglobin (Bld) [Mass/Vol] 14.8 g/dL 12.0-15.0 Monocytes/100 WBC (Bld) 6.4 % 0-10 [facility] Neutrophils (Bld) [#/Vol] 4.0 10*3/uL 2.0-7.7 Neutrophils/100 WBC (Bld) 61.8 % 47-70 Potassium [Moles/Vol] 3.6 mmol/L 3.5-5.1 [facility] Sodium [Moles/Vol] 142 mmol/L 136-145 [facility] WBC (Bld) [#/Vol] 6.5 10*3/uL 4.4-11.0 [facility] Determination of erythrocyte mean corpuscular volume (MCV)Ordered By: Amena Shine on 02-15-2024 MCV (RBC) [Entitic vol] 88.6 fL 81-99 [facility] Erythrocyte distribution wid th ratioOrdered By: Amena Shine on 02-15-2024 Erythrocyte distribution width (RBC) [Ratio] 13.6 % 11.6-14.6 Erythrocyte distribution wid th standard deviationOrdered By: Amena Shine on 02-15-2024 Erythrocyte distribution width (RBC) [Entitic vol] 43.9 fL 35.1-43.9 Hematocrit Auto (Bld) [Volum e fraction]Ordered By: Amena Shine on 02-15-2024 Hematocrit (Bld) [Volume fraction] 44.9 % 37-47 Immature granulocytes/100 WB C Auto (Bld)Ordered By: Amena Shine on 02-15-2024 Immature granulocytes/100 WBC (Bld) 0.300 % 0.0-0.9 Comment on above: IG% - Immature Granu locytes (promyelocytes, myelocytes and metamyelocytes) > 1% indicates that a LEFT SHIFT is Present. Laboratory - Chemistry and C hemistry - challengeOrdered By: Amena Shine on 02-15-2024 CO2 [Moles/Vol] 24.0 mmol/L 21.0-32.0 Urea nitrogen/Creatinine [Mass ratio] 14.8 mg/mg 10-20 Laboratory - Hematology and Cell countsOrdered By: Amena Shine on 02-15-2024 MCH (RBC) [Entitic mass] 29.2 pg 27.0-32.0 MCHC (RBC) [Mass/Vol] 33.0 g/dL 32-36 [facility] Nucleated RBC/100 WBC (Bld) [Ratio] 0 % 0-5 Platelet mean volume (Bld) [Entitic vol] 9.8 fL 6.2-12.0 Platelets (Bld) [#/Vol] 340 10*3/uL 150-450 No Panel InformationOrdered By: Amena Shine on 02-15-2024 Troponin I High Sensitivity 34 pg/mL 3.0-54.0 Comment on above: Please Note: New [place] t Units and Gender Specific Reference Ranges. For more information see Policy Stat Procedure [place] High Sensitivity Troponin (TNIH) and attachments. Estimated Creatinine Clearance Calc 36.56 ml/min Estimated GFR (MDRD) Amer 62 mL/min >60 Comment on above: GFR Calc Estimated GFR (MDRD) Non-Af Amer 52 mL/min >60 Comment on above: Non- GFR Calc RBC Auto (Bld) [#/Vol]Ordere d By: Amena Shine on 02-15-2024 RBC (Bld) [#/Vol] 5.07 10*6/uL 4.2-5.4 [facility] Serum or plasma calcium steve urement (mass/volume)Ordered By: Amena Shine on 02-15-2024 Calcium [Mass/Vol] 8.6 mg/dL 8.5-10.1 [facility] Serum or plasma creatinine m easurement (mass/volume)Ordered By: Amena Shine on 02-15-2024 Creatinine [Mass/Vol] 1.08 mg/dL 0.55-1.02 [facility] Comment on above: The validity of the calculated GFR & GFRAA in patients over 70 years has not been determined. Clinical correlation is essential. Serum or plasma urea nitroge n measurement (mass/volume)Ordered By: Amena Shine on 02-15-2024 Urea nitrogen [Mass/Vol] 16 mg/dL 7-18 Thin prep Papanicolaou smear with manual screeningOrdered By: Amena Shine on 02-15-2024 Thin prep Papanicolaou smear with manual screening 6 5-15 Absolute lymphocyte countOrd ered By: ED PROVIDER on 01-27-2024 Lymphocytes Auto (Unsp spec) [#/Vol] 0.99 10*3/uL 0.83-4.51 Automated lymphocyte count a s percentage of total leukocytesOrdered By: ED PROVIDER on 01-27-2024 Lymphocytes/100 WBC Auto (Unsp spec) 18.7 % 19-41 Basophil percentageOrdered B y: ED PROVIDER on 01-27-2024 Basophils/100 WBC (Bld) 1.1 % 0-1 [facility] Chloride [Moles/Vol] 104 mmol/L 98-107 [facility] Eosinophils/100 WBC (Bld) 1.3 % 0-5 Glucose [Mass/Vol] 106 mg/dL 74-106 [facility] Comment on above: Fasting Glucose resu lt from 100 to 125 mg/dL suggests IMPAIRED HOMEOSTASIS per A.D.A. criteria. Hemoglobin (Bld) [Mass/Vol] 15.1 g/dL 12.0-15.0 Monocytes/100 WBC (Bld) 13.6 % 0-10 [facility] Neutrophils (Bld) [#/Vol] 3.5 10*3/uL 2.0-7.7 Neutrophils/100 WBC (Bld) 65.1 % 47-70 Potassium [Moles/Vol] 3.9 mmol/L 3.5-5.1 [facility] Sodium [Moles/Vol] 138 mmol/L 136-145 [facility] WBC (Bld) [#/Vol] 5.3 10*3/uL 4.4-11.0 [facility] Determination of erythrocyte mean corpuscular volume (MCV)Ordered By: ED PROVIDER on 01-27-2024 MCV (RBC) [Entitic vol] 86.5 fL 81-99 [facility] Erythrocyte distribution wid th ratioOrdered By: ED PROVIDER on 01-27-2024 Erythrocyte distribution width (RBC) [Ratio] 13.7 % 11.6-14.6 Erythrocyte distribution wid th standard deviationOrdered By: ED PROVIDER on 01-27-2024 Erythrocyte distribution width (RBC) [Entitic vol] 43.7 fL 35.1-43.9 Hematocrit Auto (Bld) [Volum e fraction]Ordered By: ED PROVIDER on 01-27-2024 Hematocrit (Bld) [Volume fraction] 45.6 % 37-47 Immature granulocytes/100 WB C Auto (Bld)Ordered By: ED PROVIDER on 01-27-2024 Immature granulocytes/100 WBC (Bld) 0.200 % 0.0-0.9 Comment on above: IG% - Immature Granu locytes (promyelocytes, myelocytes and metamyelocytes) > 1% indicates that a LEFT SHIFT is Present. Laboratory - Chemistry and C hemistry - challengeOrdered By: ED PROVIDER on 01-27-2024 CO2 [Moles/Vol] 27.0 mmol/L 21.0-32.0 Urea nitrogen/Creatinine [Mass ratio] 18.2 mg/mg 10-20 Laboratory - Hematology and Cell countsOrdered By: ED PROVIDER on 01-27-2024 MCH (RBC) [Entitic mass] 28.7 pg 27.0-32.0 MCHC (RBC) [Mass/Vol] 33.1 g/dL 32-36 [facility] Nucleated RBC/100 WBC (Bld) [Ratio] 0 % 0-5 Platelet mean volume (Bld) [Entitic vol] 10.3 fL 6.2-12.0 Platelets (Bld) [#/Vol] 242 10*3/uL 150-450 No Panel InformationOrdered By: ED PROVIDER on 01-27-2024 Troponin I High Sensitivity 24 pg/mL 3.0-54.0 Comment on above: Please Note: New [place] t Units and Gender Specific Reference Ranges. For more information see Policy Stat Procedure [place] High Sensitivity Troponin (TNIH) and attachments. Estimated GFR (MDRD) Amer 61 mL/min >60 Comment on above: GFR Calc Estimated GFR (MDRD) Non-Af Amer 51 mL/min >60 Comment on above: Non- GFR Calc RBC Auto (Bld) [#/Vol]Ordere d By: ED PROVIDER on 01-27-2024 RBC (Bld) [#/Vol] 5.27 10*6/uL 4.2-5.4 [facility] Serum or plasma calcium steve urement (mass/volume)Ordered By: ED PROVIDER on 01-27-2024 Calcium [Mass/Vol] 9.2 mg/dL 8.5-10.1 [facility] Serum or plasma creatinine m easurement (mass/volume)Ordered By: ED PROVIDER on 01-27-2024 Creatinine [Mass/Vol] 1.10 mg/dL 0.55-1.02 [facility] Comment on above: The validity of the calculated GFR & GFRAA in patients over 70 years has not been determined. Clinical correlation is essential. Serum or plasma urea nitroge n measurement (mass/volume)Ordered By: ED PROVIDER on 01-27-2024 Urea nitrogen [Mass/Vol] 20 mg/dL 05-31 Thin prep Papanicolaou smear with manual screeningOrdered By: ED PROVIDER on 01-27-2024 Thin prep Papanicolaou smear with manual screening 7 - Basophil percentageOrdered B y: Yris Zavala on 11-06-2023 Bilirubin [Mass/Vol] 0.60 mg/dL 0.20-1.00 [facility] Comment on above: For patients on eltr ombopag therapy, use of Dimension [place] TBIL is not recommended. Chloride [Moles/Vol] 107 mmol/L 98-107 [facility] Glucose [Mass/Vol] 110 mg/dL 74-106 [facility] Comment on above: Fasting Glucose resu lt from 100 to 125 mg/dL suggests IMPAIRED HOMEOSTASIS per A.D.A. criteria. Potassium [Moles/Vol] 3.5 mmol/L 3.5-5.1 [facility] Protein [Mass/Vol] 6.4 g/dL 6.4-8.2 [facility] Sodium [Moles/Vol] 139 mmol/L 136-145 [facility] WBC (Bld) [#/Vol] 7.8 10*3/uL 4.4-11.0 [facility] Blood erythrocytes count (nu mber/volume)Ordered By: [facility] on 11-06-2023 RBC (Bld) [#/Vol] 5.03 10*6/uL 4.2-5.4 [facility] Blood hemoglobin measurement (mass/volume)Ordered By: [facility] on 11-06-2023 Hemoglobin (Bld) [Mass/Vol] 14.4 g/dL 12.0-15.0 Blood platelet mean volumeOr dered By: [facility] on 11-06-2023 Platelet mean volume (Bld) [Entitic vol] 10.1 fL 6.2-12.0 Determination of erythrocyte mean corpuscular volume (MCV)Ordered By: [facility] on 11-06-2023 MCV (RBC) [Entitic vol] 89.7 fL 81-99 [facility] Hematocrit Auto (Bld) [Volum e fraction]Ordered By: [facility] on 11-06-2023 Hematocrit (Bld) [Volume fraction] 45.1 % 37-47 Laboratory - Chemistry and C hemistry - challengeOrdered By: [facility] on 11-06-2023 ALP [Catalytic activity/Vol] 75 U/L 45-117 ALT [Catalytic activity/Vol] 63 U/L 13-56 CO2 [Moles/Vol] 26.0 mmol/L 21.0-32.0 Globulin (S) [Mass/Vol] 3.3 g/dL 2.2-4.2 [facility] Urea nitrogen/Creatinine [Mass ratio] 17.1 mg/mg 10-20 Laboratory - Hematology and Cell countsOrdered By: Yris Zavala on 11-06-2023 Erythrocyte distribution width (RBC) [Entitic vol] 43.9 fL 35.1-43.9 Erythrocyte distribution width (RBC) [Ratio] 13.4 % 11.6-14.6 MCH (RBC) [Entitic mass] 28.6 pg 27.0-32.0 MCHC Auto (RBC) [Mass/Vol]Or dered By: Yris Zavala on 11-06-2023 MCHC (RBC) [Mass/Vol] 31.9 g/dL 32-36 [facility] Comment on above: Delta: 33.6 on 11/05 No Panel InformationOrdered By: Yris Zavala on 11-06-2023 Estimated Creatinine Clearance Calc 48.27 ml/min Estimated GFR (MDRD) Amer 94 mL/min >60 Comment on above: GFR Calc Estimated GFR (MDRD) Non-Af Amer 77 mL/min >60 Comment on above: Non- GFR Calc Platelets bldOrdered By: Joel Zavala on 11-06-2023 Platelets (Bld) [#/Vol] 313 10*3/uL 150-450 Serum or plasma albumin steve urement (mass/volume)Ordered By: Yris Zavala on 11-06-2023 Albumin [Mass/Vol] 3.1 g/dL 3.2-5.0 [facility] Serum or plasma albumin/glob ulin mass ratioOrdered By: Yris Zavala on 11-06-2023 Albumin/Globulin [Mass ratio] 0.9 {ratio} 0.9-2.4 Serum or plasma calcium steve urement (mass/volume)Ordered By: Yris Zavala on 11-06-2023 Calcium [Mass/Vol] 8.8 mg/dL 8.5-10.1 [facility] Serum or plasma creatinine m easurement (mass/volume)Ordered By: Yris Zavala on 12-24-2023 Creatinine [Mass/Vol] 0.76 mg/dL 0.55-1.02 [facility] Comment on above: The validity of the calculated GFR & GFRAA in patients over 70 years has not been determined. Clinical correlation is essential. Serum or plasma urea nitroge n measurement (mass/volume)Ordered By: [facility] on 11-06-2023 Urea nitrogen [Mass/Vol] 13 mg/dL 7-18 Thin prep Papanicolaou smear with manual screeningOrdered By: Yris Zavala on 11-06-2023 Thin prep Papanicolaou smear with manual screening 307 U/L 15-37 Thin prep Papanicolaou smear with manual screening 6 5-15 Basophil percentageOrdered B y: Lei Diaz on 11-05-2023 Cholesterol [Mass/Vol] 163 mg/dL <200 [facility] Comment on above: <200 mg/dL Desirable 200-240 mg/dL Borderline >240 mg/dL High Risk Triglyceride [Mass/Vol] 292 mg/dL <199 [facility] Comment on above: The drugs N-Acetylcy steine and Metamizole may falsely depress this assay.Serum Triglycerides Reference Interval Normal <150 mg/dL Borderline high 150 - 199 mg/dL High 200 - 499 mg/dL Very High > or = 500 mg/dL No Panel InformationOrdered By: Vinod Car on 11-05-2023 Activated Clotting Time 260 sec 74-137 [facility] No Panel InformationOrdered By: Lei Diaz on 11-05-2023 Troponin I High Sensitivity 5155 pg/mL 3.0-54.0 Comment on above: Critical Result(s) C alled at: 07:50:30 11/05/2023 by: Leonard Green RN (U). Results read back by same. Please Note: New Test Units and Gender Specific Reference Ranges. For more information see Policy Stat Procedure [place] High Sensitivity Troponin (TNIH) and attachments. Thyroid Stimulating Hormone (TSH) 3.12 uIU/mL 0.358-3.74 Serum or plasma cholesterol in HDL measurement (mass/volume)Ordered By: Lei Diaz on 11-05-2023 Cholesterol in HDL [Mass/Vol] 49 mg/dL >40 Comment on above: The drugs N-Acetylcy steine and Metamizole may falsely depress this assay. Reference Range HDL <40 mg/dL Low HDL Cholesterol HDL >or= 60 mg/dL High HDL Cholesterol Serum or plasma cholesterol in VLDL measurement (mass/volume)Ordered By: Lei Diaz on 11-05-2023 Cholesterol in VLDL [Mass/Vol] 58 mg/dL 5-40 Serum or plasma low density lipoprotein (LDL) cholesterol measurement (mass/volume)Ordered By: Lei Diaz on 11-05-2023 Cholesterol in LDL [Mass/Vol] 56 mg/dL 0-130 Absolute lymphocyte countOrd ered By: Vinod Islas on 11-04-2023 Lymphocytes Auto (Unsp spec) [#/Vol] 2.07 10*3/uL 0.83-4.51 Basophil percentageOrdered B y: Vinod Islas on 11-04-2023 Basophils/100 WBC (Bld) 1.0 % 0-1 [facility] Chloride [Moles/Vol] 105 mmol/L 98-107 [facility] Eosinophils/100 WBC (Bld) 3.4 % 0-5 Glucose [Mass/Vol] 107 mg/dL 74-106 [facility] Comment on above: Fasting Glucose resu lt from 100 to 125 mg/dL suggests IMPAIRED HOMEOSTASIS per A.D.A. criteria. Neutrophils (Bld) [#/Vol] 4.0 10*3/uL 2.0-7.7 Neutrophils/100 WBC (Bld) 57.1 % 47-70 Potassium [Moles/Vol] 4.0 mmol/L 3.5-5.1 [facility] Sodium [Moles/Vol] 139 mmol/L 136-145 [facility] WBC (Bld) [#/Vol] 7.0 10*3/uL 4.4-11.0 [facility] Blood erythrocytes count (nu mber/volume)Ordered By: Vinod Islas on 11-04-2023 RBC (Bld) [#/Vol] 5.58 10*6/uL 4.2-5.4 [facility] Blood hemoglobin measurement (mass/volume)Ordered By: Vinod Islas on 11-04-2023 Hemoglobin (Bld) [Mass/Vol] 16.1 g/dL 12.0-15.0 Blood lymphocytes/100 leukoc ytesOrdered By: Vinod Islas on 11-04-2023 Lymphocytes/100 WBC (Bld) 29.5 % 19-41 Blood monocytes/100 leukocyt esOrdered By: Vinod Islas on 11-04-2023 Monocytes/100 WBC (Bld) 8.7 % 0-10 [facility] Blood platelet mean volumeOr dered By: Vinod Islas on 11-04-2023 Platelet mean volume (Bld) [Entitic vol] 9.8 fL 6.2-12.0 Determination of erythrocyte mean corpuscular volume (MCV)Ordered By: Vinod Islas on 11-04-2023 MCV (RBC) [Entitic vol] 88.4 fL 81-99 [facility] Hematocrit Auto (Bld) [Volum e fraction]Ordered By: Vinod Islas on 11-04-2023 Hematocrit (Bld) [Volume fraction] 49.3 % 37-47 Laboratory - Chemistry and C hemistry - challengeOrdered By: Vinod Islas on 11-04-2023 CO2 [Moles/Vol] 28.0 mmol/L 21.0-32.0 Urea nitrogen/Creatinine [Mass ratio] 15.3 mg/mg 10-20 Laboratory - Hematology and Cell countsOrdered By: Vinod Islas on 11-04-2023 Erythrocyte distribution width (RBC) [Entitic vol] 43.2 fL 35.1-43.9 Erythrocyte distribution width (RBC) [Ratio] 13.3 % 11.6-14.6 Immature granulocytes/100 WBC (Bld) 0.300 % 0.0-0.9 Comment on above: IG% - Immature Granu locytes (promyelocytes, myelocytes and metamyelocytes) > 1% indicates that a LEFT SHIFT is Present. MCH (RBC) [Entitic mass] 28.9 pg 27.0-32.0 Nucleated RBC/100 WBC (Bld) [Ratio] 0 % 0-5 [facility] [Mass/Vol]Or dered By: Vinod Islas on 11-04-2023 MCHC (RBC) [Mass/Vol] 32.7 g/dL 32-36 [facility] No Panel InformationOrdered By: Vniod Islas on 11-04-2023 D-Dimer Quantitative (PE/DVT) 0.34 FEU/ug/m 0.27-0.49 Comment on above: NORMAL D-Dimer level (<0.50) indicates no DVT or PE. Estimated Creatinine Clearance Calc 48.70 ml/min Estimated GFR (MDRD) Amer 70 mL/min >60 Comment on above: GFR Calc Estimated GFR (MDRD) Non-Af Amer 58 mL/min >60 Comment on above: Non- GFR Calc Troponin I High Sensitivity 147 pg/mL 3.0-54.0 Comment on above: Critical Result(s) C alled at: 01:53:58 11/05/2023 by: Gato Du. To SHANNON RAMIRES (ED). Results read back by same. Please Note: New Test Units and Gender Specific Reference Ranges. For more information see Policy Stat Procedure [place] High Sensitivity Troponin (TNIH) and attachments. Platelets bldOrdered By: Adriana Islas on 11-04-2023 Platelets (Bld) [#/Vol] 355 10*3/uL 150-450 Serum or plasma calcium steve urement (mass/volume)Ordered By: Vinod Islas on 11-04-2023 Calcium [Mass/Vol] 9.6 mg/dL 8.5-10.1 [facility] Serum or plasma creatinine m easurement (mass/volume)Ordered By: Vinod Islas on 11-04-2023 Creatinine [Mass/Vol] 0.98 mg/dL 0.55-1.02 [facility] Comment on above: The validity of the calculated GFR & GFRAA in patients over 70 years has not been determined. Clinical correlation is essential. Serum or plasma urea nitroge n measurement (mass/volume)Ordered By: Vinod Islas on 11-04-2023 Urea nitrogen [Mass/Vol] 15 mg/dL 7-18 Thin prep Papanicolaou smear with manual screeningOrdered By: Vniod Islas on 11-04-2023 Thin prep Papanicolaou smear with manual screening 6 -15 Absolute lymphocyte counton 08-31-2022 Lymphocytes Auto (Unsp spec) [#/Vol] 1.11 10*3/uL 0.83-4.51 Work Phone: Basophil percentageon 2021 Basophils/100 WBC (Bld) 0.5 % 0-1 [facility] Work Phone: Bilirubin [Mass/Vol] 0.50 mg/dL 0.20-1.00 [facility] Work Phone: Comment on above: For patients on eltr ombopag therapy, use of Dimension [place] TBIL is not recommended. Chloride [Moles/Vol] 105 mmol/L 98-107 [facility] Work Phone: Eosinophils/100 WBC (Bld) 0.3 % 0-5 Work Phone: Glucose [Mass/Vol] 143 mg/dL 74-106 [facility] Work Phone: Comment on above: Fasting Glucose resu lt greater than or equal to 126 mg/dL suggests DIABETES MELLITUS per A.D.A. criteria. Neutrophils (Bld) [#/Vol] 15.1 10*3/uL 2.0-7.7 Work Phone: Neutrophils/100 WBC (Bld) 86.8 % 47-70 Work Phone: Potassium [Moles/Vol] 3.9 mmol/L 3.5-5.1 [facility] Work Phone: Protein [Mass/Vol] 7.2 g/dL 6.4-8.2 [facility] Work Phone: Sodium [Moles/Vol] 138 mmol/L 136-145 [facility] Work Phone: WBC (Bld) [#/Vol] 17.4 10*3/uL 4.4-11.0 [facility] Work Phone: [phone] Blood erythrocytes count (nu mber/volume)on 08-31-2022 RBC (Bld) [#/Vol] 5.22 10*6/uL 4.2-5.4 [facility] Work Phone: [phone] Blood hemoglobin measurement (mass/volume)on 08-31-2022 Hemoglobin (Bld) [Mass/Vol] 15.6 g/dL 12.0-15.0 Work Phone: [phone] Blood lymphocytes/100 leukoc yteson 08-31-2022 Lymphocytes/100 WBC (Bld) 6.4 % 19-41 Work Phone: [phone] Blood monocytes/100 leukocyt eson 08-31-2022 Monocytes/100 WBC (Bld) 5.7 % 0-10 [facility] Work Phone: [phone] Blood platelet mean volumeon 08-31-2022 Platelet mean volume (Bld) [Entitic vol] 9.5 fL 6.2-12.0 Work Phone: [phone] Determination of erythrocyte mean corpuscular volume (MCV)on 08-31-2022 MCV (RBC) [Entitic vol] 87.9 fL 81-99 [facility] Work Phone: [phone] Direct bilirubinon Bilirubin.direct [Mass/Vol] 0.19 mg/dL 0.00-0.30 Work Phone: Hematocrit Auto (Bld) [Volum e fraction]on 08-31-2022 Hematocrit (Bld) [Volume fraction] 45.9 % 37-47 Work Phone: [phone] Laboratory - Chemistry and C hemistry - challengeon 08-31-2022 ALP [Catalytic activity/Vol] 92 U/L 45-117 Work Phone: [phone] ALT [Catalytic activity/Vol] 25 U/L 13-56 Work Phone: [phone] CO2 [Moles/Vol] 24.0 mmol/L 21.0-32.0 Work Phone: [phone] Globulin (S) [Mass/Vol] 3.6 g/dL 2.2-4.2 [facility] Work Phone: [phone] Lipase [Catalytic activity/Vol] 136 U/L 73-393 Work Phone: [phone] Urea nitrogen/Creatinine [Mass ratio] 15.7 mg/mg 10-20 Work Phone: [phone] Laboratory - Hematology and Cell countson 08-31-2022 Erythrocyte distribution width (RBC) [Entitic vol] 43.4 fL 35.1-43.9 Work Phone: [phone] Erythrocyte distribution width (RBC) [Ratio] 13.4 % 11.6-14.6 Work Phone: [phone] Immature granulocytes/100 WBC (Bld) 0.300 % 0.0-0.9 Work Phone: [phone] Comment on above: IG% - Immature Granu locytes (promyelocytes, myelocytes and metamyelocytes) > 1% indicates that a LEFT SHIFT is Present. MCH (RBC) [Entitic mass] 29.9 pg 27.0-32.0 Work Phone: [phone] Nucleated RBC/100 WBC (Bld) [Ratio] 0 % 0-5 Work Phone: [phone] MCHC Auto (RBC) [Mass/Vol]on 08-31-2022 MCHC (RBC) [Mass/Vol] 34.0 g/dL 32-36 [facility] Work Phone: [phone] No Panel Informationon 08-31 Estimated Creatinine Clearance Calc 51.35 ml/min Work Phone: [phone] Estimated GFR (MDRD) Amer 67 mL/min >60 Work Phone: [phone] Comment on above: GFR Calc Estimated GFR (MDRD) Non-Af Amer 55 mL/min >60 Work Phone: Comment on above: Non- GFR Calc Platelets bldon 08-31-2022 Platelets (Bld) [#/Vol] 335 10*3/uL 150-450 Work Phone: Serum or plasma albumin steve urement (mass/volume)on 08-31-2022 Albumin [Mass/Vol] 3.6 g/dL 3.2-5.0 [facility] Work Phone: Serum or plasma calcium steve urement (mass/volume)on 08-31-2022 Calcium [Mass/Vol] 8.7 mg/dL 8.5-10.1 [facility] Work Phone: Serum or plasma creatinine m easurement (mass/volume)on 08-31-2022 Creatinine [Mass/Vol] 1.02 mg/dL 0.55-1.02 [facility] Work Phone: Comment on above: The validity of the calculated GFR & GFRAA in patients over 70 years has not been determined. Clinical correlation is essential. Serum or plasma urea nitroge n measurement (mass/volume)on 08-31-2022 Urea nitrogen [Mass/Vol] 16 mg/dL 05-31 Work Phone: Thin prep Papanicolaou smear with manual screeningon 08-31-2022 Thin prep Papanicolaou smear with manual screening 16 U/L 15-37 Work Phone: Thin prep Papanicolaou smear with manual screening 9 5-15 Work Phone: Lower GI hemoglobin IA Ql (S tl)on 03-05-2022 FECAL OCCULT BLOOD Positive [facility] Stool Occult Blood (SHAN) Positive Work Phone: Absolute lymphocyte counton 03-04-2022 Lymphocytes Auto (Unsp spec) [#/Vol] 1.71 10*3/uL 0.83-4.51 Work Phone: [phone] Basophil percentageon 2021 Basophils/100 WBC (Bld) 1.0 % 0-1 [facility] Work Phone: Bilirubin [Mass/Vol] 0.40 mg/dL 0.20-1.00 [facility] [place] Work Phone: Comment on above: For patients on eltr ombopag therapy, use of Dimension [place] TBIL is not recommended. Chloride [Moles/Vol] 109 mmol/L 98-107 [facility] Work Phone: Cholesterol [Mass/Vol] 183 mg/dL <200 [facility] Work Phone: Comment on above: <200 mg/dL Desirable 200-240 mg/dL Borderline >240 mg/dL High Risk Eosinophils/100 WBC (Bld) 3.7 % 0-5 Work Phone: Glucose [Mass/Vol] 113 mg/dL 74-106 [facility] Work Phone: Comment on above: Fasting Glucose resu lt from 100 to 125 mg/dL suggests IMPAIRED HOMEOSTASIS per A.D.A. criteria. Neutrophils (Bld) [#/Vol] 5.5 10*3/uL 2.0-7.7 Work Phone: Neutrophils/100 WBC (Bld) 68.0 % 47-70 Work Phone: Potassium [Moles/Vol] 3.5 mmol/L 3.5-5.1 [facility] Work Phone: Protein [Mass/Vol] 7.4 g/dL 6.4-8.2 [facility] Work Phone: Sodium [Moles/Vol] 141 mmol/L 136-145 [facility] Work Phone: Triglyceride [Mass/Vol] 279 mg/dL [facility] Work Phone: Comment on above: The drugs N-Acetylcy steine and Metamizole may falsely depress this assay.Serum Triglycerides Reference Interval Normal <150 mg/dL Borderline high 150 - 199 mg/dL High 200 - 499 mg/dL Very High > or = 500 mg/dL WBC (Bld) [#/Vol] 8.2 10*3/uL 4.4-11.0 [facility] Work Phone: Blood erythrocytes count (nu mber/volume)on 03-04-2022 RBC (Bld) [#/Vol] 5.67 10*6/uL 4.2-5.4 [facility]: Blood hemoglobin measurement (mass/volume)on 03-04-2022 Hemoglobin (Bld) [Mass/Vol] 16.1 g/dL 12.0-15.0 Work Phone: [phone] Blood lymphocytes/100 leukoc yteson 03-04-2022 Lymphocytes/100 WBC (Bld) 21.0 % 19-41 Work Phone: [phone] Blood monocytes/100 leukocyt eson 03-04-2022 Monocytes/100 WBC (Bld) 6.1 % 0-10 [facility] Work Phone: Blood platelet mean volumeon 03-04-2022 Platelet mean volume (Bld) [Entitic vol] 9.4 fL 6.2-12.0 Work Phone: [phone] Determination of erythrocyte mean corpuscular volume (MCV)on 03-04-2022 MCV (RBC) [Entitic vol] 85.9 fL 81-99 [facility] Work Phone: [phone] Hematocrit Auto (Bld) [Volum e fraction]on 03-04-2022 Hematocrit (Bld) [Volume fraction] 48.7 % 37-47 Work Phone: [phone] Laboratory - Chemistry and C hemistry - challengeon 03-04-2022 ALP [Catalytic activity/Vol] 84 U/L 45-117 Work Phone: [phone] ALT [Catalytic activity/Vol] 21 U/L 13-56 Work Phone: [phone] CO2 [Moles/Vol] 26.0 mmol/L 21.0-32.0 Work Phone: [phone] Globulin (S) [Mass/Vol] 3.8 g/dL 2.2-4.2 [facility] Work Phone: [phone] Urea nitrogen/Creatinine [Mass ratio] 11.1 mg/mg 10-20 Work Phone: [phone] Laboratory - Hematology and Cell countson 03-04-2022 Erythrocyte distribution width (RBC) [Entitic vol] 41.1 fL 35.1-43.9 Work Phone: [phone] Erythrocyte distribution width (RBC) [Ratio] 13.2 % 11.6-14.6 Work Phone: [phone] Immature granulocytes/100 WBC (Bld) 0.200 % 0.0-0.9 Work Phone: [phone] Comment on above: IG% - Immature Granu locytes (promyelocytes, myelocytes and metamyelocytes) > 1% indicates that a LEFT SHIFT is Present. MCH (RBC) [Entitic mass] 28.4 pg 27.0-32.0 Work Phone: [phone] Nucleated RBC/100 WBC (Bld) [Ratio] 0 % 0-5 Work Phone: [phone] MCHC Auto (RBC) [Mass/Vol]on 03-04-2022 MCHC (RBC) [Mass/Vol] 33.1 g/dL 32-36 [facility] Work Phone: [phone] Panel Informationon 03-04 Estimated GFR (MDRD) Amer 69 mL/min >60 Work Phone: [phone] Comment on above: GFR Calc Estimated GFR (MDRD) Non-Af Amer 57 mL/min >60 Work Phone: [phone] Comment on above: Non- GFR Calc Vitamin D 25-Hydroxy 83.2 ng/mL [facility] Work Phone: [phone] Comment on above: Vitamin D 25(OH) Sta tus Range Deficiency <20 ng/mL (50nmol/L) Insufficiency 20 - 30 ng/mL (50 - 75 nmol/L) Sufficiency 30 - 100 ng/mL (75 - 250 nmol/L) Toxicity >100 ng/mL (>250 nmol/L) Platelets bldon 03-04-2022 Platelets (Bld) [#/Vol] 541 10*3/uL 150-450 Work Phone: Serum or plasma albumin steve urement (mass/volume)on 03-04-2022 Albumin [Mass/Vol] 3.6 g/dL 3.2-5.0 [facility] Work Phone: Serum or plasma albumin/glob ulin mass ratioon 03-04-2022 Albumin/Globulin [Mass ratio] 0.9 {ratio} 0.9-2.4 Work Phone: Serum or plasma calcium steve urement (mass/volume)on 03-04-2022 Calcium [Mass/Vol] 9.0 mg/dL 8.5-10.1 [facility] Work Phone: Serum or plasma cholesterol in HDL measurement (mass/volume)on 03-04-2022 Cholesterol in HDL [Mass/Vol] 46 mg/dL Work Phone: Comment on above: The drugs N-Acetylcy steine and Metamizole may falsely depress this assay. Reference Range HDL <40 mg/dL Low HDL Cholesterol HDL >or= 60 mg/dL High HDL Cholesterol Serum or plasma cholesterol in VLDL measurement (mass/volume)on 03-04-2022 Cholesterol in VLDL [Mass/Vol] 56 mg/dL 5-40 Work Phone: Serum or plasma creatinine m easurement (mass/volume)on 03-04-2022 Creatinine [Mass/Vol] 0.99 mg/dL 0.55-1.02 [facility] Work Phone: Comment on above: The validity of the calculated GFR & GFRAA in patients over 70 years has not been determined. Clinical correlation is essential. Serum or plasma low density lipoprotein (LDL) cholesterol measurement (mass/volume)on 03-04-2022 Cholesterol in LDL [Mass/Vol] 81 mg/dL 0-130 Work Phone: Serum or plasma urea nitroge n measurement (mass/volume)on 03-04-2022 Urea nitrogen [Mass/Vol] 11 mg/dL 7-18 Work Phone: Thin prep Papanicolaou smear with manual screeningon 03-04-2022 Thin prep Papanicolaou smear with manual screening 11 U/L 15-37 Work Phone: Thin prep Papanicolaou smear with manual screening 6 5-15 Work Phone: UA DIP, URINE (POC)on 2021 BILIRUBIN UA (POCT) Negative Negative [facility] CLARITY UA (POCT) Clear [facility] COLOR UA (POCT) Yellow [facility] GLUCOSE UA (POCT) Negative Negative mg/dL [facility] HEMOGLOBIN/BLOOD UA (POCT) Negative Negative [facility] KETONE UA (POCT) Negative Negative mg/dL [facility] LEUKOCYTES UA (POCT) Negative Negative [facility] NITRITE UA (POCT) Negative Negative [facility] PH UA (POCT) 6.5 4.5 - 8.0 [facility] Protein Ql (U) 100 mg/dL Abnormal Negative mg/dL [facility] SPECIFIC GRAVITY UA (POCT) 1.020 1.005 - 1.030 [facility] UROBILINOGEN UA (POCT) 0.2 E.U./dL Virgen l E.U./dL [facility] XR CHEST 2V FRONTAL/LATon [facility] XR Chest PA and Lateralon IMPRESSION: 1. Streaky densities in the right lung base which may be due to atelectasis or infiltrate 2. Again noted are multiple small nodules in the right lung Vacation Planner: MARIANNE Transcribe Date/Time: Feb 19 2022 10:43A Dictated by : PETRA SHIPLEY MD This examination was interpreted and the report reviewed and electronically signed by: PETRA SHIPLEY MD on Feb 19 2022 10:46AM [facility] DIVISION OF RADIOLOGY * * *Final Report* * * DATE OF EXAM: Feb 19 2022 10:27AM WOX [id number] - XR CHEST 2V FRONTAL/LAT / PROCEDURE REASON: Cough * * * * Physician Interpretation * * * * EXAMINATION: CHEST RADIOGRAPH (2 VIEW FRONTAL & LATERAL) CLINICAL HISTORY: Cough MQ: [id number] EXAM DATE/TIME: 02/19/2022 10:27 AM COMPARISON: Chest x-ray 04/05/2018 RESULT: Lines, tubes, and devices: None. Lungs and pleura: Stable appearance of multiple small nodules in the right lung. Streaky densities in the right lung base. No pleural effusion or pneumothorax. Cardiomediastinal silhouette: Stable cardiomediastinal silhouette. Ectasia of the thoracic aorta. Bones and soft tissues: Multiple surgical clips in the left axillary region. DIVISION OF RADIOLOGY Provider, [facility] - 02/19/2022 * * *Final Report* * * DATE OF EXAM: Feb 19 2022 10:27AM WOX [id number] - XR CHEST 2V FRONTAL/LAT / PROCEDURE REASON: Cough * * * * Physician Interpretation * * * * EXAMINATION: CHEST RADIOGRAPH (2 VIEW FRONTAL & LATERAL) CLINICAL HISTORY: Cough MQ: [id number] EXAM DATE/TIME: 02/19/2022 10:27 AM COMPARISON: Chest x-ray 04/05/2018 RESULT: Lines, tubes, and devices: None. Lungs and pleura: Stable appearance of multiple small nodules in the right lung. Streaky densities in the right lung base. No pleural effusion or pneumothorax. Cardiomediastinal silhouette: Stable cardiomediastinal silhouette. Ectasia of the thoracic aorta. Bones and soft tissues: Multiple surgical clips in the left axillary region. IMPRESSION IMPRESSION: 1. Streaky densities in the right lung base which may be due to atelectasis or infiltrate 2. Again noted are multiple small nodules in the right lung Vacation Planner: MARIANNE Transcribe Date/Time: Feb 19 2022 10:43A Dictated by : PETRA SHIPLEY MD This examination was interpreted and the report reviewed and electronically signed by: PETRA SHIPLEY MD on Feb 19 2022 10:46AM [facility] Radiology Study observation (narrative) Diamond Sy XR Chest PA and LateralOrder ed By: [facility] Provider on 02-19-2022 [facility] Basophil percentageon 2021 Amylase [Catalytic activity/Vol] 39 U/L 25-115 Work Phone: CBC W Auto Differential pane l (Bld)on 02-15-2022 Abs Immature Gran 0.03 k/uL <0.10 k/uL [facility] Basophils (Bld) [#/Vol] 0.06 10*3/uL <0.11 k/uL [facility] Basophils/100 WBC (Bld) 0.7 % [facility] Differential cell count method Nom (Bld) Auto [facility] Eosinophils (Bld) [#/Vol] 0.19 10*3/uL <0.46 k/uL [facility] Eosinophils/100 WBC (Bld) 2.2 % [facility] Erythrocyte distribution width (RBC) [Ratio] 13.5 % 11.5 - 15.0 % [facility] Hematocrit (Bld) [Volume fraction] 46.5 % High 36.0 - 46.0 % [facility] Hemoglobin (Bld) [Mass/Vol] 15.5 g/dL 11.5 - 15.5 g/dL [facility] Immature Gran % 0.3 % [facility] Lymphocytes (Bld) [#/Vol] 1.88 10*3/uL 1.00 - 4.00 k/uL [facility] Lymphocytes/100 WBC (Bld) 21.8 % [facility] MCH (RBC) [Entitic mass] 28.5 pg 26. 0 - 34.0 pg [facility] MCHC (RBC) [Mass/Vol] 33.3 g/dL 30.5 - 36.0 g/dL [facility] MCV (RBC) [Entitic vol] 85.5 fL 80.0 - 100.0 fL [facility] Monocytes (Bld) [#/Vol] 0.58 10*3/uL <0.87 k/uL [facility] Monocytes/100 WBC (Bld) 6.7 % [facility] Neutrophils (Bld) [#/Vol] 5.90 10*3/uL 1.45 - 7.50 k/uL [facility] Neutrophils/100 WBC (Bld) 68.3 % [facility] Nucleated RBC (Bld) [#/Vol] 10*3/uL <0.01 k/uL [facility] Nucleated RBC/100 WBC (Bld) [Ratio] 0.0 /100 WBC [facility] Platelet mean volume (Bld) [Entitic vol] 9.6 fL 9.0 - 12.7 fL [facility] Platelets (Bld) [#/Vol] 405 10*3/uL High 150 - 400 k/uL [facility] RBC (Bld) [#/Vol] 5.44 10*6/uL High 3.90 - 5.2 0 m/uL [facility] WBC (Bld) [#/Vol] 8.64 10*3/uL 3.70 - 11. 00 k/uL [facility] Comprehensive metabolic 2000 panelon 02-15-2022 Albumin [Mass/Vol] 4.4 g/dL 3.9 - 4.9 g/dL [facility] ALP [Catalytic activity/Vol] 92 U/L 34 - 123 U/L [facility] ALT [Catalytic activity/Vol] 10 U/L 7 - 38 U/L [facility] Anion gap [Moles/Vol] 9 mmol/L 9 - 18 mmol/L [facility] AST [Catalytic activity/Vol] 10 U/L Low 13 - 35 U/L [facility] Bilirubin [Mass/Vol] 0.3 mg/dL 0.2 - 1 .3 mg/dL [facility] Calcium [Mass/Vol] 9.1 mg/dL 8.5 - 10. 2 mg/dL [facility] Chloride [Moles/Vol] 103 mmol/L 97 - 10 5 mmol/L [facility] CO2 [Moles/Vol] 26 mmol/L 22 - 30 mmol/L [facility] Creatinine [Mass/Vol] 0.90 mg/dL 0.58 - 0.96 mg/dL [facility] Estimated Glomerular Filtration Rate 65 mL/min/1.73m >=60 mL/min/1.73m [facility] Glucose [Mass/Vol] 119 mg/dL High 74 - 99 mg/dL [facility] Potassium [Moles/Vol] 4.2 mmol/L 3.7 - 5.1 mmol/L [facility] Protein [Mass/Vol] 6.7 g/dL 6.3 - 8.0 g/dL [facility] Sodium [Moles/Vol] 138 mmol/L 136 - 144 mmol/L [facility] Urea nitrogen [Mass/Vol] 16 mg/dL 7 - 21 mg/d L [facility] Laboratory - Chemistry and C hemistry - challengeon 02-15-2022 Lipase [Catalytic activity/Vol] 123 U/L 73-393 Work Phone: UA DIP, URINE (POC)on 2021 BILIRUBIN UA (POCT) Negative Negative [facility] CLARITY UA (POCT) Cloudy [facility] COLOR UA (POCT) Dark yellow [facility] d [facility] GLUCOSE UA (POCT) Negative Negative mg/dL [facility] HEMOGLOBIN/BLOOD UA (POCT) Large Abnormal Negative [facility] KETONE UA (POCT) Negative Negative mg/dL [facility] LEUKOCYTES UA (POCT) Small Abnormal Negative [facility] NITRITE UA (POCT) Negative Negative [facility] PH UA (POCT) 6.0 4.5 - 8.0 [facility] Protein Ql (U) >=300 Abnormal Negative mg/dL [facility] SPECIFIC GRAVITY UA (POCT) 1.025 1.005 - 1.030 [facility] UROBILINOGEN UA (POCT) 0.2 E.U./dL Virgen l E.U./dL [facility] Gram stain for investigation of transfusion reaction Microscopic observation Gram stain Nom (Unsp spec) Work Phone: Microbial respiratory cultur e Bacteria identified Respiratory culture Nom (Unsp spec) Work Phone: Vital Signs Date Time Vital Sign Value Performing Clinician Akshat hadley 04-30-2025 07:06-0400 Body mass index (BMI) [Ratio] 31.3 kg/m2 Dr. Amrik Mejia MD Work Phone: 04-30-2025 07:06-0400 Body weight 68.[address] Amrik Mejia MD Work Phone: 04-30-2025 07:06-0400 Diastolic blood pressure 71 mm[Hg] Dr. mArik Mejia MD Work Phone: 04-30-2025 07:06-0400 Heart rate 70 /min Dr. Amrik Mejia MD Work Phone: 04-30-2025 07:06-0400 Respiratory rate 18 /min Dr. Amrik Mejia MD Work Phone: 04-30-2025 07:06-0400 SaO2% (BldA) [Mass fraction] 96 % Dr. Amrik Mejia MD Work Phone: 04-30-2025 07:06-0400 Systolic blood pressure 111 mm[Hg] Dr. Amrik Mejia MD Work Phone: 04-26-2025 09:57-0400 Body height 149.9 cm Amrik Mejia MD Work Phone: [facility] 04-26-2025 09:57-0400 Body mass index (BMI) [Ratio] 30.23 kg/m2 Amrik Mejia MD Work Phone: [facility] 04-26-2025 09:57-0400 Body temperature 96.69 [degF] Amrik Mejia MD Work Phone: [facility] 04-26-2025 09:57-0400 Body weight 67.9 kg Amrik Mejia MD Work Phone: [facility] 04-26-2025 09:57-0400 Diastolic blood pressure 60 mm[Hg] Amrik Mejia MD Work Phone: [facility] 04-26-2025 09:57-0400 Heart rate 63 /min Amrik Mejia MD Work Phone: [facility] 04-26-2025 09:57-0400 Respiratory rate 12 /min Amrik Mejia MD Work Phone: [facility] 04-26-2025 09:57-0400 SaO2% (BldA) [Mass fraction] 98 % Amrik Mejia MD Work Phone: [facility] 04-26-2025 09:57-0400 Systolic blood pressure 120 mm[Hg] Amrik Mejia MD Work Phone: [facility] 04-18-2025 14:46-0400 Body temperature 98 [degF] Dr. Amrik Mejia MD Work Phone: 04-18-2025 14:46-0400 Diastolic blood pressure 71 mm[Hg] Dr. Amrik Mejia MD Work Phone: 04-18-2025 14:46-0400 Heart rate 72 /min Dr. Amrik Mejia MD Work Phone: 04-18-2025 14:46-0400 Respiratory rate 16 /min Dr. Amrik Mejia MD Work Phone: 04-18-2025 14:46-0400 SaO2% (BldA) [Mass fraction] 98 % Dr. Amrik Mejia MD Work Phone: 04-18-2025 14:46-0400 Systolic blood pressure 138 mm[Hg] Dr. Amrik Mejia MD Work Phone: 04-18-2025 10:41-0400 Body height 147.[address] Amrik Mejia MD Work Phone: 04-18-2025 10:41-0400 Body mass index (BMI) [Ratio] 32.1 kg/m2 Dr. Amrik Mejia MD Work Phone: 04-18-2025 10:41-0400 Body weight 69.[address] Amrik Mejia MD Work Phone: 11-21-2024 10:55-0500 Body mass index (BMI) [Ratio] 30.99 kg/m2 Amrik Mejia MD Work Phone: [facility] 11-21-2024 10:55-0500 Body temperature 96.21 [degF] Amrik Mejia MD Work Phone: [facility] 11-21-2024 10:55-0500 Body weight 69.6 kg Amrik Mejia MD Work Phone: [facility] 11-21-2024 10:55-0500 Diastolic blood pressure 64 mm[Hg] Amrik Mejia MD Work Phone: [facility] 11-21-2024 10:55-0500 Heart rate 67 /min Amrik Mejia MD Work Phone: [facility] 11-21-2024 10:55-0500 Respiratory rate 16 /min Amrik Mejai MD Work Phone: [facility] 11-21-2024 10:55-0500 SaO2% (BldA) [Mass fraction] 97 % Amrik Mejia MD Work Phone: [facility] 11-21-2024 10:55-0500 Systolic blood pressure 110 mm[Hg] Amrik Mejia MD Work Phone: [facility] 10-26-2024 10:58-0500 Body mass index (BMI) [Ratio] 30.72 kg/m2 Quyen He LABORER LABORATORY.ASSISTANT BUYER Work Phone: [facility] 10-26-2024 10:58-0500 Body temperature 96.6 [degF] Quyen NaranjoHe LABORER LABORATORY.ASSISTANT BUYER Work Phone: [facility] 10-26-2024 10:58-0500 Body weight 69 kg Quyen GillespieHe LABORER LABORATORY.ASSISTANT BUYER Work Phone: [facility] 10-26-2024 10:58-0500 Diastolic blood pressure 78 mm[Hg] Quyen He LABORER LABORATORY.ASSISTANT BUYER Work Phone: [facility] 10-26-2024 10:58-0500 Heart rate 77 /min Quyen He LABORER LABORATORY.ASSISTANT BUYER Work Phone: [facility] 10-26-2024 10:58-0500 Respiratory rate 14 /min Quyen He LABORER LABORATORY.ASSISTANT BUYER Work Phone: [facility] 10-26-2024 10:58-0500 SaO2% (BldA) [Mass fraction] 99 % Quyen He LABORER LABORATORY.ASSISTANT BUYER Work Phone: [facility] 10-26-2024 10:58-0500 Systolic blood pressure 122 mm[Hg] Quyen He LABORER LABORATORY.ASSISTANT BUYER Work Phone: [facility] 08-10-2024 13:50-0400 Body height 149.9 cm Marek Petersen MD Work Phone: [facility] 08-10-2024 13:50-0400 Body mass index (BMI) [Ratio] 31.79 kg/m2 Marek Petersen MD Work Phone: [facility] 08-10-2024 13:50-0400 Body temperature 97.2 [degF] Marek Petersen MD Work Phone: [facility] 08-10-2024 13:50-0400 Body weight 71.4 kg Marek Petersen MD Work Phone: [facility] 08-10-2024 13:50-0400 Diastolic blood pressure 70 mm[Hg] Marek Petersen MD Work Phone: [facility] 08-10-2024 13:50-0400 Heart rate 89 /min Marek Petersen MD Work Phone: [facility] 08-10-2024 13:50-0400 SaO2% (BldA) [Mass fraction] 95 % Marek Petersen MD Work Phone: [facility] 08-10-2024 13:50-0400 Systolic blood pressure 130 mm[Hg] Marek Petersen MD Work Phone: [facility] 05-18-2024 09:18-0400 Body mass index (BMI) [Ratio] 30.9 kg/m2 Miryam Bond LABORER LABORATORY.ASSISTANT BUYER Work Phone: [facility] 05-18-2024 09:18-0400 Body weight 69.4 kg Miryam Bond LABORER LABORATORY.ASSISTANT BUYER Work Phone: [facility] 05-18-2024 09:18-0400 Diastolic blood pressure 64 mm[Hg] Miryam Laura LABORER LABORATORY.ASSISTANT BUYER Work Phone: [facility] 05-18-2024 09:18-0400 Heart rate 64 /min Miryam Laura LABORER LABORATORY.ASSISTANT BUYER Work Phone: [facility] 05-18-2024 09:18-0400 SaO2% (BldA) [Mass fraction] 97 % Miryam Laura LABORER LABORATORY.ASSISTANT BUYER Work Phone: [facility] 05-18-2024 09:18-0400 Systolic blood pressure 112 mm[Hg] Miryam Laura LABORER LABORATORY.ASSISTANT BUYER Work Phone: [facility] 02-16-2024 11:42-0400 Body weight 68.95 kg Neida Martinez LABORER LABORATORY.CERTIFIED NURSING ATTENDANT Work Phone: [facility] 02-16-2024 11:42-0400 Diastolic blood pressure 70 mm[Hg] Neida Martinez LABORER LABORATORY.CERTIFIED NURSING ATTENDANT Work Phone: [facility] 02-16-2024 11:42-0400 Heart rate 69 /min Neida Martinez LABORER LABORATORY.CERTIFIED NURSING ATTENDANT Work Phone: [facility] 02-16-2024 11:42-0400 Respiratory rate 16 /min Neida Martinez LABORER LABORATORY.CERTIFIED NURSING ATTENDANT Work Phone: [facility] 02-16-2024 11:42-0400 SaO2% (BldA) [Mass fraction] 97 % Neida Martinez LABORER LABORATORY.CERTIFIED NURSING ATTENDANT Work Phone: [facility] 02-16-2024 11:42-0400 Systolic blood pressure 119 mm[Hg] Neida Martinez LABORER LABORATORY.CERTIFIED NURSING ATTENDANT Work Phone: [facility] 02-15-2024 11:00-0400 Body temperature 97.4 [degF] Dr. Amrik Mejia Work Phone: 02-15-2024 11:00-0400 Diastolic blood pressure 72 mm[Hg] Dr. Amrik Mejia Work Phone: 8(372)502-623203 [place] [address] 02-15-2024 11:00-0400 Heart rate 89 /min Dr. Amrik Mejia Work Phone: 1(537)916-830689 [place] [address] 02-15-2024 11:00-0400 Respiratory rate 20 /min Dr. Amrik Mejia Work Phone: 2(104)786-519789 [place] [address] 02-15-2024 11:00-0400 SaO2% (BldA) [Mass fraction] 94 % Dr. Amrik Mejia Work Phone: 5(257)283-267989 [place] [address] 02-15-2024 11:00-0400 Systolic blood pressure 146 mm[Hg] Dr. Amrik Mejia Work Phone: 4(634)845-926389 [place] [address] 02-15-2024 07:43-0400 Body height 147.[address] Amrik Mejia Work Phone: 7(681)208-920589 [place] [address] 02-15-2024 07:43-0400 Body mass index (BMI) [Ratio] 34.9 kg/m2 Dr. Amrik Mejia Work Phone: 8(778)384-684489 [place] [address] 02-15-2024 07:43-0400 Body weight 75.[address] Amrik Mejia Work Phone: 5(029)534-762689 [place] [address] 01-27-2024 22:51-0400 Body temperature 96.6 [degF] Dr. Amrik Mejia Work Phone: 6(013)904-747789 [place] [address] 01-27-2024 22:51-0400 Diastolic blood pressure 81 mm[Hg] Dr. Amrik Mejia Work Phone: 1(533)178-492489 [place] [address] 01-27-2024 22:51-0400 Heart rate 100 /min Dr. Amrik Mejia Work Phone: 5(355)714-064703 [place] [address] 01-27-2024 22:51-0400 Respiratory rate 18 /min Dr. Amrik Mejia Work Phone: 6(073)827-094889 [place] [address] 01-27-2024 22:51-0400 SaO2% (BldA) [Mass fraction] 95 % Dr. Amrik Mejia Work Phone: 1(798)202-233789 [place] [address] 01-27-2024 22:51-0400 Systolic blood pressure 138 mm[Hg] Dr. Amrik Mejia Work Phone: 3(047)696-408389 [place] [address] 01-27-2024 15:12-0400 Body mass index (BMI) [Ratio] 32.6 kg/m2 Dr. Amrik Mejia Work Phone: 4(053)980-561289 [place] [address] 01-27-2024 15:12-0400 Body weight 70.[address] Amrik Mejia Work Phone: 9(124)409-683789 [place] [address] 01-27-2024 13:37-0400 Body height 147.[address] Amrik Mejia Work Phone: 9(642)685-254589 [place] [address] 01-02-2024 14:07-0500 Body mass index (BMI) [Ratio] 32.8 kg/m2 Dr. Amrik Mejia Work Phone: 4(774)809-418789 [place] [address] 01-02-2024 13:16-0500 Body height 147.[address] Amrik Mejia Work Phone: 3(844)407-697889 [place] [address] 01-02-2024 13:16-0500 Body weight 71.[address] Amrik Mejia Work Phone: 4(100)004-316789 [place] [address] 01-02-2024 13:06-0500 Diastolic blood pressure 74 mm[Hg] Dr. Amrik Mejia Work Phone: 2(373)657-643689 [place] [address] 01-02-2024 13:06-0500 Heart rate 70 /min Dr. Amrik Mejia Work Phone: 9(556)409-942189 [place] [address] 01-02-2024 13:06-0500 SaO2% (BldA) [Mass fraction] 96 % Dr. Amrik Mejia Work Phone: 6(892)104-342489 [place] [address] 01-02-2024 13:06-0500 Systolic blood pressure 125 mm[Hg] Dr. Amrik Mejia Work Phone: 4(558)716-393689 [place] [address] 12-09-2023 10:27-0500 Body mass index (BMI) [Ratio] 32.8 kg/m2 Dr. Amrik Mejia Work Phone: 12-09-2023 10:27-0500 Body weight 71.[address] Amrik Mejia Work Phone: 12-09-2023 10:27-0500 Diastolic blood pressure 74 mm[Hg] Dr. Amrik Mejia Work Phone: 12-09-2023 10:27-0500 Heart rate 70 /min Dr. Amrik Mejia Work Phone: 12-09-2023 10:27-0500 Respiratory rate 18 /min Dr. Amrik Mejia Work Phone: 12-09-2023 10:27-0500 SaO2% (BldA) [Mass fraction] 96 % Dr. Amrik Mejia Work Phone: 12-09-2023 10:27-0500 Systolic blood pressure 125 mm[Hg] Dr. Amrik Mejia Work Phone: 11-16-2023 10:28-0500 Body temperature 96.01 [degF] Amrik Mejia MD Work Phone: [facility] 11-16-2023 10:28-0500 Body weight 70.76 kg Amrik Mejia MD Work Phone: [facility] 11-16-2023 10:28-0500 Diastolic blood pressure 76 mm[Hg] Amirk Mejia MD Work Phone: [facility] 11-16-2023 10:28-0500 Heart rate 63 /min Amrik Mejia MD Work Phone: [facility] 11-16-2023 10:28-0500 Respiratory rate 18 /min mArik Mejia MD Work Phone: [facility] 11-16-2023 10:28-0500 SaO2% (BldA) [Mass fraction] 96 % Amrik Mejia MD Work Phone: [facility] 11-16-2023 10:28-0500 Systolic blood pressure 118 mm[Hg] Amrik Mejia MD Work Phone: [facility] 11-06-2023 09:08-0500 Diastolic blood pressure 88 mm[Hg] Dr. Amrik Mejia Work Phone: 11-06-2023 09:08-0500 Heart rate 93 /min Dr. Amrik Mejia Work Phone: 11-06-2023 09:08-0500 Systolic blood pressure 158 mm[Hg] Dr. Amrik Mejia Work Phone: 11-06-2023 09:01-0500 Body temperature 97.7 [degF] Dr. Amrik Mejia Work Phone: 11-06-2023 09:01-0500 Respiratory rate 16 /min Dr. Amrik Mejia Work Phone: 11-06-2023 09:01-0500 SaO2% (BldA) [Mass fraction] 98 % Dr. Amrik Mejia Work Phone: 11-05-2023 16:03-0500 Inhaled oxygen flow rate 2 L/min Dr. Amrik Mejia Work Phone: 11-05-2023 04:19-0500 Body temperature 97.5 [degF] [facility] 11-05-2023 04:19-0500 Diastolic blood pressure 80 mm[Hg] 11-05-2023 04:19-0500 Heart rate 84 /min [facility] 11-05-2023 04:19-0500 Respiratory rate 18 /min [facility] 11-05-2023 04:19-0500 SaO2% (BldA) [Mass fraction] 96 % 11-05-2023 04:19-0500 Systolic blood pressure 162 mm[Hg] 11-05-2023 04:130500 Body height 147.32 cm [facility] 11-05-2023 04:130500 Body mass index (BMI) [Ratio] 32.5 kg/m2 11-05-2023 04:130500 Body weight 70.5 kg [facility] 05-16-2023 10:54-0400 Body height 149.9 cm Miryam Laura LABORER LABORATORY.ASSISTANT BUYER Work Phone: [facility] 05-16-2023 10:54-0400 Body weight 72.03 kg Miryam Laura LABORER LABORATORY.ASSISTANT BUYER Work Phone: [facility] 05-16-2023 10:54-0400 Diastolic blood pressure 70 mm[Hg] Miryam Laura LABORER LABORATORY.ASSISTANT BUYER Work Phone: [facility] 05-16-2023 10:54-0400 Heart rate 70 /min Miryam Laura LABORER LABORATORY.ASSISTANT BUYER Work Phone: [facility] 05-16-2023 10:54-0400 Respiratory rate 16 /min Miryam Laura LABORER LABORATORY.ASSISTANT BUYER Work Phone: [facility] 05-16-2023 10:54-0400 Systolic blood pressure 120 mm[Hg] Miryam Laura LABORER LABORATORY.ASSISTANT BUYER Work Phone: [facility] 11-16-2022 09:52-0500 Body temperature 98.29 [degF] Amrik Mejia MD Work Phone: [facility] 11-16-2022 09:52-0500 Body weight 73.03 kg Amrik Mejia MD Work Phone: [facility] 11-16-2022 09:52-0500 Diastolic blood pressure 78 mm[Hg] Amrik Mejia MD Work Phone: [facility] 11-16-2022 09:52-0500 Heart rate 71 /min Amrik Mejia MD Work Phone: [facility] 11-16-2022 09:52-0500 Respiratory rate 18 /min Amrik Mejia MD Work Phone: [facility] 11-16-2022 09:52-0500 SaO2% (BldA) [Mass fraction] 96 % Amrik Mejia MD Work Phone: [facility] 11-16-2022 09:52-0500 Systolic blood pressure 136 mm[Hg] Amrik Mejia MD Work Phone: [facility] 08-31-2022 14:57-0400 Body temperature 99.3 [degF] [facility] Work Phone: 08-31-2022 14:57-0400 Diastolic blood pressure 83 mm[Hg] Work Phone: 08-31-2022 14:57-0400 Heart rate 100 /min [facility] Work Phone: 08-31-2022 14:57-0400 Respiratory rate 24 /min [facility] Work Phone: 08-31-2022 14:57-0400 SaO2% (BldA) [Mass fraction] 93 % Work Phone: 08-31-2022 14:57-0400 Systolic blood pressure 158 mm[Hg] Work Phone: 08-31-2022 10:03-0400 Body height 147.32 cm [facility] Work Phone: 08-31-2022 10:03-0400 Body mass index (BMI) [Ratio] 34.6 kg/m2 Work Phone: 08-31-2022 10:03-0400 Body weight 75.2 kg [facility] Work Phone: 03-08-2022 09:49-0400 Body weight 70.31 kg Neida Martinez APRN.CERTIFIED NURSING ATTENDANT Work Phone: [facility] 03-08-2022 09:49-0400 Diastolic blood pressure 80 mm[Hg] Neida Martinez APRN.CERTIFIED NURSING ATTENDANT Work Phone: [facility] 03-08-2022 09:49-0400 Heart rate 84 /min Neida Martinez LABORER LABORATORY.CERTIFIED NURSING ATTENDANT Work Phone: [facility] 03-08-2022 09:49-0400 Respiratory rate 16 /min Neida Martinez LABORER LABORATORY.CERTIFIED NURSING ATTENDANT Work Phone: [facility] 03-08-2022 09:49-0400 Systolic blood pressure 138 mm[Hg] Neida Martinez LABORER LABORATORY.CERTIFIED NURSING ATTENDANT Work Phone: [facility] 02-19-2022 09:42-0400 Body temperature 97.2 [degF] Teri Dany LABORER LABORATORY.ASSISTANT BUYER Work Phone: [facility] 02-19-2022 09:42-0400 Body weight 73.3 kg Terisilvestre Garzak LABORER LABORATORY.ASSISTANT BUYER Work Phone: [facility] 02-19-2022 09:42-0400 Diastolic blood pressure 88 mm[Hg] Teri Dany LABORER LABORATORY.ASSISTANT BUYER Work Phone: [facility] 02-19-2022 09:42-0400 Heart rate 88 /min Teri Dany LABORER LABORATORY.ASSISTANT BUYER Work Phone: [facility] 02-19-2022 09:42-0400 Respiratory rate 18 /min Teri Dany LABORER LABORATORY.ASSISTANT BUYER Work Phone: [facility] 02-19-2022 09:42-0400 SaO2% (BldA) [Mass fraction] 95 % Teri Dany LABORER LABORATORY.ASSISTANT BUYER Work Phone: [facility] 02-19-2022 09:42-0400 Systolic blood pressure 136 mm[Hg] Teri Dany LABORER LABORATORY.ASSISTANT BUYER Work Phone: [facility] 02-15-2022 09:06-0400 Body weight 71.67 kg Quyen Older LABORER LABORATORY.ASSISTANT BUYER Work Phone: [facility] 02-15-2022 09:06-0400 Diastolic blood pressure 86 mm[Hg] Quyen Older LABORER LABORATORY.ASSISTANT BUYER Work Phone: [facility] 02-15-2022 09:06-0400 Heart rate 70 /min Quyen Older LABORER LABORATORY.ASSISTANT BUYER Work Phone: [facility] 02-15-2022 09:06-0400 Respiratory rate 16 /min Quyen Older LABORER LABORATORY.ASSISTANT BUYER Work Phone: [facility] 02-15-2022 09:06-0400 SaO2% (BldA) [Mass fraction] 94 % Quyen Older LABORER LABORATORY.ASSISTANT BUYER Work Phone: [facility] 02-15-2022 09:06-0400 Systolic blood pressure 134 mm[Hg] Quyen Older LABORER LABORATORY.ASSISTANT BUYER Work Phone: [facility] 02-13-2022 09:56-0400 Body temperature 98.49 [degF] Jessica Praisler-Wood LABORER LABORATORY.ASSISTANT BUYER Work Phone: [facility] 02-13-2022 09:56-0400 Body weight 73.03 kg Jessica Praisler-Wood LABORER LABORATORY.ASSISTANT BUYER Work Phone: [facility] 02-13-2022 09:56-0400 Diastolic blood pressure 82 mm[Hg] Jessica Praisler-Wood LABORER LABORATORY.ASSISTANT BUYER Work Phone: [facility] 02-13-2022 09:56-0400 Heart rate 88 /min Jessica Praisler-Wood LABORER LABORATORY.ASSISTANT BUYER Work Phone: [facility] 02-13-2022 09:56-0400 Respiratory rate 18 /min Jessica Praisler-Wood LABORER LABORATORY.ASSISTANT BUYER Work Phone: [facility] 02-13-2022 09:56-0400 SaO2% (BldA) [Mass fraction] 96 % Jessica Praisler-Wood LABORER LABORATORY.ASSISTANT BUYER Work Phone: [facility] 02-13-2022 09:56-0400 Systolic blood pressure 142 mm[Hg] Jessica Praisler-Wood LABORER LABORATORY.ASSISTANT BUYER Work Phone: [facility] Encounters Encounter Date Encounter Type Care Provider Facility Start: 05-21-2025 End: 05-22-2025 Andrew Mejia MD Work Phone: [facility] [place] Comment on above: Refill Request Start: 05-09-2025 End: 05-10-2025 Refill Amrik Mejia MD Work Phone: [facility] [place] Comment on above: Refill Request Start: 04-30-2025 End: 04-30-2025 Patient encounter procedure Doni Bhakta [place] -[facility] Work Phone: Start: 04-30-2025 End: 04-30-[address] Amrik Mejia [place] Phone[place] [facility] [place]: Start: 04-30-2025 End: 04-30-2025 ambulatory Doni Bhakta Facility: Start: 04-26-2025 End: 04-26-2025 Office outpatient visit 25 minutes Amrik Mejia MD Work Phone: [facility] [place] Comment on above: Acute cystitis witho ut hematuria (Primary Dx); Gastroesophageal reflux disease without esophagitis Start: 04-26-2025 End: 04-26-2025 ambulatory AMRIK MEJIA Facility:[facility] Start: 04-18-2025 End: 04-18-2025 Emergency department patient visit Dr. Amrik Mejia MD Work Phone: -Emergency Department Work Phone: Start: 03-27-2025 End: 03-27-2025 ambulatory Jessica Heller MA [facility] Start: 03-27-2025 End: 03-27-2025 Patient encounter procedure Jessica Heller MA [facility] Comment on above: Population Health Na vigation Outreach (/[facility] Start: 03-12-2025 End: 03-12-2025 Telephone encounter Amrik Mejia MD Work Phone: [address] [place] [address] Comment on above: Patient Update Start: 02-25-2025 End: 02-25-2025 ambulatory Jessica Heller MA [facility] Start: 02-25-2025 End: 02-25-2025 Patient encounter procedure Jessica Ashraflabach MIKE [facility] Comment on above: Population Health Na vigation Outreach ([facility] ) Start: 02-02-2025 End: 02-02-2025 Refill Amrik Mejia MD Work Phone: [facility] [place] Comment on above: Refill Request Start: 01-23-2025 End: 01-23-2025 ambulatory Jessica Heller MA [facility] Start: 01-23-2025 End: 01-23-2025 Patient encounter procedure Jessica Heller MA [facility] Comment on above: Population Health Na vigation Outreach ([facility] Start: 12-19-2024 End: 12-19-2024 ambulatory Jessica Ashraflabnaomi MCKEON [facility] Start: 12-19-2024 End: 12-19-2024 Patient encounter procedure Jessica Ashraflabnaomi MCKEON [facility] Comment on above: Population Health Na vigation Outreach ([facility]) Start: 11-21-2024 End: 11-21-2024 Telephone encounter Amrik Mejia MD Work Phone: [facility] [place] Comment on above: Request for Office v isit note Start: 11-21-2024 End: 11-21-2024 ambulatory AMRIK MEJIA Facility:[facility] Start: 11-21-2024 End: 11-21-2024 Office outpatient visit 25 minutes Amrik Mejia MD Work Phone: [facility] [place] Comment on above: Essential hypertensi on (Primary Dx); Generalized anxiety disorder; Cough; Vitamin D deficiency; Hyperlipidemia, unspecified hyperlipidemia type; [employer]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; Contusion of left hand, initial encounter Start: 10-30-2024 End: 10-30-2024 Telephone encounter Amrik Mejia MD Work Phone: [facility] [place] Comment on above: Release Of Medical R ecords Start: 10-27-2024 End: 10-27-2024 Telephone encounter Oleg Erwin LABORER LABORATORY.ASSISTANT BUYER Work Phone: [facility] Comment on above: Results Start: 10-26-2024 End: 10-26-2024 Telephone encounter Quyen Reginaldo He LABORER LABORATORY.ASSISTANT BUYER Work Phone: [facility] [place] Comment on above: Results (Labs ) Start: 10-26-2024 End: 10-26-2024 ambulatory AMRIK D TALAMPAS Facility:[facility] Start: 10-26-2024 End: 10-26-2024 Patient encounter procedure Quyen Leon LABORER LABORATORY.ASSISTANT BUYER Work Phone: [facility] [place] Comment on above: Abdominal pressure ( Primary Dx); Urinary frequency; Positional lightheadedness Start: 10-25-2024 End: 10-25-2024 ambulatory AMRIK D TALAMPAS Facility:[facility] Start: 10-20-2024 End: 10-22-2024 Refill Neida Juan LABORER LABORATORY.CERTIFIED NURSING ATTENDANT Work Phone: [facility] [place] Comment on above: Refill Request Start: 09-17-2024 End: 09-17-2024 [facility] Start: 09-14-2024 End: 09-14-2024 [facility] Start: 09-14-2024 End: 09-14-2024 Nursing evaluation of patient and report Nurse Dony [facility] Work Phone: General Surgery Comment on above: Visit for suture rem oval (Primary Dx) Start: 09-05-2024 End: 09-05-2024 ambulatory AMRIK D TALAMPAS Facility:[facility] Start: 09-05-2024 End: 09-05-2024 Patient encounter procedure Marek Petersen MD Work Phone: General Surgery Comment on above: Skin lesion (Primary Dx) Start: 08-15-2024 End: 08-16-2024 Refill Neida Martinez LABORER LABORATORY.CERTIFIED NURSING ATTENDANT Work Phone: [facility] [place] Comment on above: Refill Request Start: 08-13-2024 End: 08-22-2024 Refill Amrik Mejia MD Work Phone: [facility] [place] Comment on above: Refill Request Start: 08-10-2024 End: 08-10-2024 Patient encounter procedure Marek Petersen MD Work Phone: General Surgery Comment on above: Skin lesion (Primary Dx) Start: 08-10-2024 End: 08-10-2024 ambulatory AMRIK D TALAMPAS Facility:[facility] Start: 08-05-2024 End: 08-06-2024 Refill Neida Martinez APRN.CERTIFIED NURSING ATTENDANT Work Phone: [facility] [place] Comment on above: Refill Request Start: 08-01-2024 End: 08-01-2024 Refill Neida Martinez APRN.CERTIFIED NURSING ATTENDANT Work Phone: [facility] [place] Comment on above: Refill Request Start: 07-21-2024 End: 07-21-2024 Emergency department patient visit Amrik D Kervinas Facility: Start: 05-30-2024 ambulatory Amrik D [place] Facilit y: Start: 05-18-2024 End: 05-18-2024 [facility] Start: 05-18-2024 End: 05-18-2024 Patient encounter procedure Miryam Bond APRN.ASSISTANT BUYER Work Phone: [facility] [place] Comment on above: Essential hypertensi on (Primary Dx); Coronary artery disease involving [place] 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 angina pectoris; Pure hyperglyceridemia; Gastroesophageal reflux disease without esophagitis; Malignant neoplasm of upper-outer quadrant of left female breast, unspecified estrogen receptor status (HCC); Generalized anxiety disorder; Reactive depression; Encounter for immunization; Obesity, Class I, BMI 30-34.9 Start: 02-27-2024 Refill Amrik cartagena MD Work Phone: [facility] [place] Comment on above: Refill Request Start: 02-16-2024 End: 02-16-2024 Office outpatient visit 25 minutes Neida Martinez APRN.CERTIFIED NURSING ATTENDANT Work Phone: [facility] [place] Comment on above: Chest pain, unspecif ied type (Primary Dx); Coronary artery disease involving lac vieux 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 angina pectoris Start: 02-15-2024 End: 02-15-2024 Emergency department patient visit Dr. Amrik [facility]ia [facility] Start: 01-27-2024 End: 01-27-2024 Emergency department patient visit Dr. Amrik Mejia Work Phone: -Emergency Department Work Phone: Start: 01-27-2024 End: 02-12-[address] Amrik Mejia Work Phone: Work Phone: Start: 01-27-2024 End: 02-12-[address] [facility] Start: 01-27-[address] Amrik Mejia Work Phone: -Cardiac Rehab Work Phone: Start: 01-24-2024 Refill Miryam Ellsworth PRN.CNP Work Phone: [facility] Comment on above: Refill Request Start: 01-11-2024 End: 01-12-[address] Amrik Mejia Work Phone: Work Phone: Start: 01-11-2024 End: 01-12-[address] Amrik Mejia Work Phone: -Cardiac Rehab Work Phone: Start: 01-02-2024 End: 01-02-[address] Amrik Mejia Work Phone: Work Phone: Start: 01-02-2024 End: 01-02-[address] Amrik Mejia Work Phone: -Cardiac Rehab Work Phone: Start: 12-14-2023 Non-patient / Non-visit Dr. Norma Mejia Work Phone: [facility] Start: 12-09-2023 End: 12-09-[address] Amrik Mejia Work Phone: [facility] Work Phone: Start: 11-16-2023 End: 11-16-2023 Transitional care manage srvc 14 day discharge Amrik Mejia MD Work Phone: [facility] [place] Comment on above: Coronary artery dise ase involving lac vieux 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 angina pectoris (Primary Dx); H/O non-ST elevation myocardial infarction (NSTEMI); S/P drug eluting coronary stent placement; Cough; Essential hypertension; Vitamin D deficiency; Bronchiectasis without complication (HCC); Gastroesophageal reflux disease without esophagitis; Encounter for long-term current use of medication Start: 11-09-2023 Non-patient / Non-visit Dr. Norma Mejia Work Phone: [facility] Start: 11-06-2023 Non-patient / Non-visit Dr. Norma Mejia Work Phone: [facility] Work Phone: Start: 11-06-2023 End: 11-06-2023 Non-patient / Non-visit Dr. Amrik Mejia Work Phone: [facility] Work Phone: Start: 11-05-2023 Non-patient / Non-visit Dr. Norma Mejia Work Phone: [facility] Start: 11-05-2023 End: 11-06-2023 Evaluation and management of inpatient [facility] Work Phone: Start: 11-05-2023 observation encounter [facility] Work Phone: Start: 10-24-2023 Refill Miryam Laura A PRN.ASSISTANT BUYER Work Phone: [facility] Comment on above: Refill Request Start: 10-14-2023 Refill Miryam Laura A PRN.ASSISTANT BUYER Work Phone: [facility] Comment on above: Refill Request Start: 10-10-2023 Refill Amrik cartagena MD Work Phone: [facility] Comment on above: Refill Request Start: 10-04-2023 Refill Amrik cartagena MD Work Phone: [facility] Comment on above: Refill Request Start: 05-16-2023 End: 05-16-2023 Patient encounter procedure Miryam Bond LABORER LABORATORY.ASSISTANT BUYER Work Phone: [facility] Comment on above: Essential hypertensi on (Primary Dx); Pure hyperglyceridemia; Gastroesophageal reflux disease without esophagitis; Malignant neoplasm of upper-outer quadrant of left female breast, unspecified estrogen receptor status (HCC) Start: 04-29-2023 Refill Miryam Laura A PRN.ASSISTANT BUYER Work Phone: [facility] Comment on above: Refill Request Start: 04-18-2023 Refill Neida Martinez A PRN.CERTIFIED NURSING ATTENDANT Work Phone: [facility] Comment on above: Refill Request Start: 04-16-2023 Refill Neida Martinez A PRN.CERTIFIED NURSING ATTENDANT Work Phone: [facility] Comment on above: Refill Request Start: 02-09-2023 Refill Neida Martinez A PRN.CERTIFIED NURSING ATTENDANT Work Phone: [facility] Comment on above: Refill Request Start: 11-16-2022 End: 11-16-2022 Office outpatient visit 25 minutes Amrik Mejia MD Work Phone: [facility] Comment on above: Generalized anxiety disorder (Primary Dx); Vitamin D deficiency; Nasal congestion; Cough; Essential hypertension; Gastroesophageal reflux disease, unspecified whether esophagitis present; Encounter for long-term current use of medication; Postmastectomy lymphedema syndrome; Personal history of breast cancer Start: 10-24-2022 Refill Amrik cartagena MD Work Phone: [facility] [place] Comment on above: Refill Request Start: 10-16-2022 End: 10-16-2022 ambulatory Work Phone: Start: 10-16-2022 End: 10-16-2022 Patient encounter procedure -Laboratory, Specimen Start: 09-04-2022 Refill Neida Ellsworth PRN.CERTIFIED NURSING ATTENDANT Work Phone: [facility] Comment on above: Refill Request Start: 08-31-2022 End: 08-31-2022 Emergency department patient visit -Emergency Department Start: 08-22-2022 Refill Amrik cartagena MD Work Phone: [facility] Comment on above: Refill Request Start: 05-30-2022 Refill Neida Ellsworth PRN.CERTIFIED NURSING ATTENDANT Work Phone: [facility] Comment on above: Refill Request Start: 04-26-2022 Refill Amrik cartagena MD Work Phone: [facility] Comment on above: Refill Request Start: 03-08-2022 End: 03-08-2022 Patient encounter procedure Neida Martinez LABORER LABORATORY.CERTIFIED NURSING ATTENDANT Work Phone: [facility] [place] Comment on above: Bronchiectasis witho ut complication (HCC) (Primary Dx); Abnormal CXR; Lung nodules; Generalized anxiety disorder; Vitamin D deficiency; Reactive depression; Positive fecal occult blood test; Essential hypertension; Mixed hyperlipidemia Start: 03-05-2022 Telephone encounter Amrik nicole MD Work Phone: [facility] Comment on above: Outside Lab Results Start: 03-05-2022 End: 03-05-2022 Patient encounter procedure -Laboratory, Specimen Start: 03-04-2022 End: 03-04-2022 Patient encounter procedure -Laboratory Start: 02-19-2022 End: 02-19-2022 Subsequent hospital visit by physician X[facility] Work Phone: Radiology Comment on above: Cough [R05.9] Start: 02-19-2022 End: 02-19-2022 Patient encounter procedure Teri Sanez ANGEL.ASSISTANT BUYER Work Phone: [facility] Comment on above: Urinary frequency (P rimary Dx); Urinary incontinence, unspecified type; Cough; Abnormal chest x-ray Start: 02-15-2022 End: 02-15-2022 Patient encounter procedure Quyen cMgarry LABORER LABORATORY.ASSISTANT BUYER Work Phone: [facility] [place] Comment on above: Abdominal discomfort (Primary Dx); Urinary frequency; Bloating; Hematuria, unspecified type; Nausea Start: 02-14-2022 Telephone encounter Jessica Feldman APRN.ASSISTANT BUYER Work Phone: [facility] Comment on above: Results Start: 02-13-2022 End: 02-13-2022 Patient encounter procedure Jessica Oswald APRN.ASSISTANT BUYER Work Phone: [facility] Comment on above: Urinary frequency (P rimary Dx) Start: 02-07-2022 Refill Amrik cartagena MD Work Phone: [facility] [place] Comment on above: Refill Request Procedures Date Procedure Procedure Detail Performing Clinician Start: 04-18-[address] Amrik Mejia MD Work Phone: Start: 04-18-2025 Urnls dip stick/tabl et reagent auto microscopy Dr. Amrik Mejia MD Work Phone: Start: 04-18-2025 X-ray of chest, PA a nd lateral views Dr. Amrik Mejia MD Work Phone: Start: 04-18-2025 D-dimer assay, quantitative Dr. Amrik Mejia MD Work Phone: Comment on above: NORMAL D-Dimer level (<0.50) indicates no DVT or PE. Start: 04-18-[address] Amrik Mejia MD Work Phone: Start: 09-05-2024 Level iv surg pathol ogy gross&microscopic exam Marek Petersen MD Work Phone: Start: 05-18-2024 PFIZER-BIONTECH COVI D-19 VACCINE (2022- SEASON) AGE 12+ YR Miryam Bond LABORER LABORATORY.ASSISTANT BUYER Work Phone: Start: 02-15-2024 Plain chest X-ray Dr. Leodan Mejia Work Phone: Start: 01-27-2024 Plain chest X-ray Dr. Leodan Mejia Work Phone: Start: 11-05-2023 CT of chest without contrast Start: 11-05-2023 Plain chest X-ray Start: 08-31-2022 CT of abdomen and pe lvis without contrast Start: 03-05-2022 FECAL OCCULT BLOOD TEST [facility] Provider Start: 03-05-2022 Measurement of occul t blood in stool specimen using immunoassay Start: 02-19-2022 Radiologic exam ches t 2 views Teri Saenz LABORER LABORATORY.ASSISTANT BUYER Work Phone: Start: 02-19-2022 Urnls dip stick/tabl et rgnt auto w/o microscopy [facility] Provider Start: 02-13-2022 Urnls dip stick/tabl et rgnt auto w/o microscopy [facility] Provider Start: 12-14-2012 H/O: surgery History of pel brenton surgery Amrik Mejia MD Work Phone: History of placement of stent for coronary artery disease S/P drug eluting coronary stent placement Amrik Mejia MD Work Phone: Investigation of transfusion reaction Respiratory microbia l culture Plan of Treatment Date Care Activity Detail Author Start: 06-14-2029 Urine microalbumin profile [facility] Start: 10-26-2027 Diabetes Screening Diabetes Screening [facility] Start: 05-18-2027 Diabetes Screening Diabetes Screening [facility] Start: 05-18-2026 Diabetes Screening Diabetes Screening [facility] Start: 11-18-2025 End: 11-18-2025 Patient encounter procedure 11/18/2025 10:40 AM EST Office Visit [facility] [place] [address] [place] [address] Amrik Mejia MD [address] [place] [address] 6 month follow up [facility] [place] Comment on above: 6 month follow up Start: 08-25-2025 DIABETES SCREEN DIABETES SCREEN [facility] Start: 07-15-2025 Influenza vaccination Influenza Vaccine (#1) [facility] Start: 05-18-2025 Hepatitis B surface antibody level LDL Cholesterol [facility] Start: 04-18-2025 Start: 04-18-2025 Bacteria identified in Urine by Culture Urine Culture Start: 04-18-2025 Start: 04-18-2025 Start: 02-15-2025 DIABETES SCREEN DIABETES SCREEN [facility] Start: 11-21-2024 End: 11-21-2024 Patient encounter procedure 11/21/2024 10:20 AM EST Office Visit [facility] [place] [address] [place] [address] Amrik Mejia MD [address] [facility] [place] [address] 6 month follow up [facility] [place] Comment on above: 6 month follow up Start: 11-14-2024 Advance Directive Discussion Advance Directive Discussion [facility] Start: 09-18-2024 Covid-19 Vaccine ( season) Covid-19 Vaccine () [facility] Start: 09-14-2024 End: 09-14-2024 Nursing evaluation of patient and report 09/14/2024 10:00 AM EDT Nurse Visit General Surgery [address] [place] [address] Wstr, Nurse Gens [facility] [address] [facility] [place] [address] partial suture removal, left posterior shoulder, review pathology General Surgery Comment on above: partial suture removal, left posterior s houlder, review pathology Start: 09-05-2024 End: 09-05-2024 Patient encounter procedure 09/05/2024 3:15 PM EDT Office Visit General Surgery [address] [place] [address] Marek Petersen MD [address] [id number] hold plavix 2 days schedule her for excision in the office -lump on left shoulder General Surgery Comment on above: hold plavix 2 days schedule her for exci yaritza in the office -lump on left shoulder Start: 08-10-2024 End: 08-10-2024 Patient encounter procedure 08/10/2024 1:30 PM EDT Office Visit General Surgery [address] [place] [address] Marek Petersen MD [address] [address] consult for lump on left shoulder General Surgery Comment on above: consult for lump on left shoulder Start: 07-15-2024 Covid-19 Vaccine ( season) Covid-19 Vaccine ( season) [facility] Start: 07-15-2024 Influenza vaccination Influenza Vaccine (#1) [facility] Start: 05-18-2024 Hepatitis B surface antibody level LDL Cholesterol [facility] Start: 02-24-2024 DIABETES SCREEN DIABETES SCREEN [facility] Start: 02-15-2024 Start: 02-15-2024 Start: 01-27-2024 Start: 12-14-2023 Patient referral Work Phone: Start: 11-14-2023 Advance Directive Discussion Advance Directive Discussion [facility] Start: 11-08-2023 Electrocardiographic procedure Start: 11-07-2023 Electrocardiographic procedure Start: 11-06-2023 Electrocardiographic procedure Start: 11-06-2023 Patient discharge Start: 11-05-2023 Cardiac monitoring Start: 11-05-2023 Cardiac rehabilitation - phase 1 Start: 11-05-2023 Notification of physician [facility] Start: 11-05-2023 Patient discharge Start: 11-05-2023 Systemic arterial pressure monitoring Start: 11-05-2023 Taking patient vital signs [facility] Start: 11-05-2023 Vascular disease risk assessment Start: 11-05-2023 Vital signs measurements [facility] Start: 11-05-2023 Start: 11-05-2023 Referral to service Start: 11-05-2023 Referral to occupational therapist Start: 11-05-2023 Verification routine Start: 11-05-2023 Complete blood count Start: 11-05-2023 Lipid 1996 panel - Serum or Plasma Start: 11-05-2023 Thyroid stimulating hormone measurement Start: 11-05-2023 Start: 11-05-2023 Following clinical pathway protocol Start: 11-05-2023 Oxygen therapy Start: 11-05-2023 Referral to building and grounds supervisor [facility] Start: 11-05-2023 Tobacco use cessation education Start: 11-05-2023 Troponin I measurement Start: 11-05-2023 US Heart Start: 11-05-2023 Start: 11-05-2023 Electrocardiographic procedure Start: 11-05-2023 Admission procedure Start: 11-05-2023 Troponin I measurement Start: 11-05-2023 Start: 11-05-2023 Inhalation therapy procedure [facility] Start: 07-15-2023 Covid-19 Vaccine () Covid-19 Vaccine () [facility] Start: 07-15-2023 Influenza vaccination [facility] Start: 05-16-2023 End: 07-16-2023 25-hydroxyvitamin D3 [Mass/volume] in Serum or Plasma VITAMIN D 25 HYDROXY Lab Routine Vitamin D deficiency Expected: 05/16/2023 (Approximate), Expires: 07/16/2023 [facility] Work Phone: Comment on above: Expected: 05/16/2023 (Approximate), Expi res: 07/16/2023 Start: 05-16-2023 End: 07-16-2023 CBC panel - Blood by Automated count CBC Lab Routine Essential hypertension Encounter for long-term current use of medication Expected: 05/16/2023 (Approximate), Expires: 07/16/2023 [facility] Work Phone: Comment on above: Expected: 05/16/2023 (Approximate), Expi res: 07/16/2023 Start: 05-16-2023 End: 07-16-2023 Comprehensive metabolic 2000 panel - Serum or Plasma COMP METABOLIC PANEL Lab Routine Essential hypertension Encounter for long-term current use of medication Expected: 05/16/2023 (Approximate), Expires: 07/16/2023 [facility] Work Phone: Comment on above: Expected: 05/16/2023 (Approximate), Expi res: 07/16/2023 Start: 05-16-2023 End: 07-16-2023 Lipid 1996 panel - Serum or Plasma LIPID PANEL BASIC Lab Routine Essential hypertension Encounter for long-term current use of medication Expected: 05/16/2023 (Approximate), Expires: 07/16/2023 [facility] Work Phone: Comment on above: Expected: 05/16/2023 (Approximate), Expi res: 07/16/2023 Start: 05-16-2023 End: 07-16-2023 Magnesium [Mass/volume] in Serum or Plasma MAGNESIUM BLD Lab Routine Encounter for long-term current use of medication Expected: 05/16/2023 (Approximate), Expires: 07/16/2023 [facility] Work Phone: Comment on above: Expected: 05/16/2023 (Approximate), Expi res: 07/16/2023 Start: 03-08-2023 BP CONTROLLED (<130/80) BP CONTROLLED (<130/80) [facility] Start: 03-05-2023 FECAL OCCULT BLOOD FECAL OCCULT BLOOD [facility] Start: 02-15-2023 ANNUAL PCP TEAM CHRONIC DISEASE VISIT ANNUAL PCP TEAM CHRONIC DISEASE VISIT [facility] Start: 11-16-2022 BP CONTROLLED (<130/80) BP CONTROLLED (<130/80) [facility] Start: 11-14-2022 ADVANCE DIRECTIVE DISCUSSION ADVANCE DIRECTIVE DISCUSSION [facility] Start: 09-07-2022 ANNUAL PCP TEAM CHRONIC DISEASE VISIT ANNUAL PCP TEAM CHRONIC DISEASE VISIT [facility] Start: 08-16-2022 End: 02-14-2023 CBC W Auto Differential panel - Blood CBC + DIFF Lab Routine Reactive depression Essential hypertension Expected: 08/16/2022 (Approximate), Expires: 02/14/2023 [facility] Work Phone: Comment on above: Expected: 08/16/2022 (Approximate), Expi res: 02/14/2023 Start: 08-16-2022 End: 02-14-2023 Comprehensive metabolic 2000 panel - Serum or Plasma COMP METABOLIC PANEL Lab Routine Reactive depression Essential hypertension Mixed hyperlipidemia Expected: 08/16/2022 (Approximate), Expires: 02/14/2023 [facility] Work Phone: Comment on above: Expected: 08/16/2022 (Approximate), Expi res: 02/14/2023 Start: 08-16-2022 End: 02-14-2023 LIPID PANEL BASIC LIPID PANEL BASIC Lab Routine Mixed hyperlipidemia Expected: 08/16/2022 (Approximate), Expires: 02/14/2023 [facility] Work Phone: Comment on above: Expected: 08/16/2022 (Approximate), Expi res: 02/14/2023 Start: 08-16-2022 End: 02-14-2023 VITAMIN D 25 HYDROXY VITAMIN D 25 HYDROXY Lab Routine Vitamin D deficiency Expected: 08/16/2022 (Approximate), Expires: 02/14/2023 [facility] Work Phone: Comment on above: Expected: 08/16/2022 (Approximate), Expi res: 02/14/2023 Start: 07-15-2022 Influenza vaccination INFLUENZA (#1) [facility] Start: 05-12-2022 COVID-19 VACCINE (5 - Booster for Moderna series) COVID-19 VACCINE (5 - Booster for Moderna series) [facility] Start: 02-24-2022 SHINGRIX VACCINE (1 of 2) SHINGRIX VACCINE (1 of 2) [facility] Comment on above: Postponed from 1991 (Insurance Cov erage) Start: 02-19-2022 End: 04-21-2022 Bacteria identified in Urine by Culture URINE CULTURE Microbiology Routine Urinary frequency Urinary incontinence, unspecified type Expected: 02/19/2022, Expires: 04/21/2022 [facility] Work Phone: Comment on above: Expected: 02/19/2022, Expires: 2 Start: 02-15-2022 End: 04-17-2022 Urinalysis complete panel - Urine URINALYSIS, WITH MICROSCOPIC Lab Routine Abdominal discomfort Urinary frequency Hematuria, unspecified type Expected: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 days, but you may do so for comfort. You should keep the wound dry for the first two-three days. After that time, you may wash the woundwith gentle soap and water. You may take acetaminophen or ibuprofen, as needed, for pain. The wound should not be immersed in a pool, bathtub, or even hot tub. If there is minor bleeding from this skin edge, you should hold pressure on the incision until the bleeding stops. If there is continued bleeding, you should contact our office immediately. If the wound shows signs of redness, inflammation, or purulent drainage, you should contact our office immediately. We prefer to check the incision and remove the stitches in our office when ready. Please make an appointment to return to our office in 1 week.Please do not remove the stitches yourself without approval from our office. If you note any additional difficulties, questions, or concerns, you should contact our office immediately @ [phone] and ask to be transferred to the General Surgery department. documented in this encounterKettering [facility]10-23-2024 NoteHNO ID: [id number] Author: DEEPA PETTY RN Service: ? Author Type: Registered Nurse Type: Progress Notes Filed: 09/10/2024 06:01 Note Text: UNIVERSAL PROTOCOL / SAFETY CHECKLIST Procedure to be Performed: Excision of left shoulder skin lesion. Sign In: A Moment of CARE was completed. Personnel directly involved with the procedure wore the appropriate PPE (Personal Protective Equipment). No special equipment needed. Patient/Surrogate Stated/Verified: PATIENT VERIFIED(optional for EMERGENT procedures): Patient name, Date of , Relevant allergies, and The intended procedure Time Out Communication: Intended patient and procedure match the source documents. Consent documented and matches the intended procedure. No relevant labs, photos, and/or imaging studies were applicable for review. Correct side/site marked and visible. Medications required for procedure verified. No fire risk assessment and interventions applicable. No implant(s) inserted. Sign Out: SIGN OUT (optional for EMERGENT procedures): All specimen containers correctly labeled. No instruments, equipment or retained foreign bodies applicable. Post-procedure follow-up management communicated and Plan of Care Visit completed when applicable. [facility] Pet[facility]10-09-2024 Telephone encounter Note* Telephone Encounter - Iza Guerrero LPN - 08/22/2024 1:13 PM EDT Spoke with patient and she states that the pharmacy told her that the vitamin D had been canceled and so will need a new order sent to pharmacy. [facility]10-09-2024 Miscellaneous Notes* Telephone Encounter - Iza Guerrero LPN - 08/22/2024 1:13 PM EDT Spoke with patient and she states that the pharmacy told her that the vitamin D had been canceled and so will need a new order sent to pharmacy. * Telephone Encounter - Bev Irvin LPN - 08/14/2024 9:54 AM EDT Tried to reach pt by phone. No answer/unable to leave message as voice mailbox is full. Bev Irvin LPN * Telephone Encounter - Amrik Mejia MD - 08/13/2024 7:49 PM EDT Looks like Miryma switched her to D3 50,000 units to take twice monthly or every other week and RX was sent May 15 with 1 refills. [facility] should have a refill. Check with [facility]. Also, make sure patient was taking every other week as instructed. She has standing orders so may get labs updated. Okay if wants to do before next appointment and not repeat labs any sooner. * Telephone Encounter - Iza Guerrero LPN - 08/13/2024 1:59 PM EDT Last vitamin d level was 05/18/24 89.1 Range 31.0-80.0 * Telephone Encounter - Beena Wei - 08/13/2024 11:16 AM EDT Hollie is calling Amrik Mejia MD today with concern regarding Refill Request Patient requesting medication D3. On patient's medication list it states vit. D2. Patient is unsureof which medication she should be on. Patient needs refill to be sent to [facility]. Patient has been identified by name and birthdate. Duration of symptoms: N/A Person calling: self Call patient at: on cell [phone] (home) [phone] (cell) Was an appointment scheduled: No Closing statement: Results or non-symptom based questions: Thank you for calling [facility], your call will be returned within the next business day. Beena Wei [facility] Telephone encounter Note * Telephone Encounter - Eduardo Matthew MA - 08/16/2024 8:33 AM EDT Prescription Refill Information The patient has been identified by name and date of : Yes Caregiver verified no other encounters exist for this prescription request: Yes Caregiver confirmed with patient/requestor that no other refills are due, in the near future, with this provider at this time: Yes The last office visit in the department: 05/18/2024 Does the patient have a future office visit with this provider/department: Yes Requested Prescriptions Pending Prescriptions Disp Refills fluticasone (FLONASE) 50 mcg/actuation nasal spray 3 Each 3 Sig: Use 2 Sprays in each nostril once daily. Eduardo Matthew MA August 16, 2024 8:33 AM [facility]10-03-2024 Miscellaneous Notes* Telephone Encounter - Eduardo Matthew MA - 08/16/2024 8:33 AM EDT Prescription Refill Information The patient has been identified by name and date of : Yes Caregiver verified no other encounters exist for this prescription request: Yes Caregiver confirmed with patient/requestor that no other refills are due, in the near future, with this provider at this time: Yes The last office visit in the department: 05/18/2024 Does the patient have a future office visit with this provider/department: Yes Requested Prescriptions Pending Prescriptions Disp Refills fluticasone (FLONASE) 50 mcg/actuation nasal spray 3 Each 3 Sig: Use 2 Sprays in each nostril once daily. Eduardo Matthew MA August 16, 2024 8:33 AM documented in this [facility]10-01-[facility]24 Telephone encounter Note * Telephone Encounter - Bev Irvin LPN - 08/14/2024 9:54 AM EDT Tried to reach pt by phone. No answer/unable to leave message as voice mailbox is full. Bev Irvin LPN [facility]09-30-2024 Telephone encounter Note* Telephone Encounter - Amrik Mejia MD - 08/13/2024 7:49 PM EDT Looks like Miryam switched her to D3 50,000 units to take twice monthly or every other week and RX was sent May 15 with 1 refills. [facility] should have a refill. Check with [facility]. Also, make sure patient was taking every other week as instructed. She has standing orders so may get labs updated. Okay if wants to do before next appointment and not repeat labs any sooner. [facility]09-30-2024 Telephone encounter Note* Telephone Encounter - Iza Guerrero LPN - 08/13/2024 1:59 PM EDT Last vitamin d level was 05/18/24 89.1 Range 31.0-80.0 [facility]09-30-2024 Telephone encounter Note* Telephone Encounter - Beena Wei - 08/13/2024 11:16 AM EDT Hollie is calling Amrik Mejia MD today with concern regarding Refill Request Patient requesting medication D3. On patient's medication list it states vit. D2. Patient is unsureof which medication she should be on. Patient needs refill to be sent to [facility]. Patient has been identified by name and birthdate. Duration of symptoms: N/A Person calling: self Call patient at: on cell [phone] (home) [phone] (cell) Was an appointment scheduled: No Closing statement: Results or non-symptom based questions: Thank you for calling [facility], your call will be returned within the next business day. Beena Wei [facility]09-27-2024 NoteHNO ID: [id number] Author: MAREK PETERSEN MD Service: ? Author Type: Physician Type: Progress Notes Filed: 08/10/2024 16:32 Note Text: HISTORY AND PHYSICAL Hollie Ugarte 1940 REFERRING PHYSICIAN: Self CHIEF COMPLAINT: skin lesion HPI: The patient is a 84 year old female. She presents with a raised purple slightly ulcerated nodule on her left posterior shoulder. She has noticed a spot for a long time. She notes some discomfort on palpation and notes that she has dull aching in her shoulder at times. The patient is on Plavix and aspirin. She had an NSTEMI last year on November 05. 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 She is having no chest pain or other problems since. She has a history of both breast cancer and skin cancer. SIGNIFICANT MEDICAL PROBLEMS: PAST MEDICAL HISTORY Diagnosis Date Abdominal pain, [...] (peripheral) insufficiency Unspecified vitamin D deficiency 03/12/2008 OPERATIONS: PAST SURGICAL HISTORY Procedure Laterality Date CARPAL TUNNEL 12/01/10 left hand, Dr Femi SHAW CHOLECYSTECTOMY 08/29/1995 Cholecystectomy CMBND ANTERPOST COLPORRAPHY W/CYSTO 2006 dr. soto COLONOSCOPY FLX DX W/COLLJ SPEC WHEN PFRMD 01/30/2004 Colonoscopy MAL LESION NECK,HAND,SCAL 0.6-1CM 07/14/11 Exc. left post-auricular skin lesion MASTECTOMY 07/31/1998 left PAST SURGICAL HISTORY OF 12/01/10 Left middle trigger finger release, Dr Femi SHAW REM LESION NEC,HND,SCAL 0.6-1.0CM 12/09/07 Exc. right frontal scalp lesion S SLING VIVIANE HAYNES TOTL 6345 2006 [place] TOTAL ABDOMINAL HYSTERECT W/WO RMVL TUBE OVARY 03/07/1984 Hysterectomy, JERRY XCAPSL CTRC RMVL INSJ IO LENS PROSTH W/O ECP Cataract Removal CURRENT MEDICATIONS: Current Outpatient Medications Medication Sig Dispense Refill omeprazole (PRILOSEC) 40 mg capsule Take 40 mg by mouth once daily. albuterol HFA (VENTOLIN HFA) 90 mcg/actuation inhaler inhale 2 puffs as instructed every 4 hours as needed for wheezing / shortness of breath 18 g 3 fluticasone (FLONASE) 50 mcg/actuation nasal spray Use 2 Sprays in each nostril once daily. 3 Each 3 isosorbide mononitrate ER (IMDUR) 30 mg 24 hr tablet Take 1 tablet by mouth every afternoon. ergocalciferol 50,000 unit capsule (VITAMIN D2, DRISDOL) Take by mouth. BREO ELLIPTA 100-25 mcg/dose inhaler INHALE 1 PUFF DAILY with good oral care amLODIPine (NORVASC) 5 mg tablet take 1 tablet by mouth once daily 90 tablet 3 clopidogrel (PLAVIX) 75 mg tablet Take 1 tablet by mouth once daily. 90 tablet 3 metoprolol tartrate, short acting, (LOPRESSOR) 25 mg tablet Take 1 tablet by mouth two times a day. 180 tablet 3 penicillin V potassium 500 mg tablet Take 1 tablet by mouth once daily. 90 tablet 3 atorvastatin (LIPITOR) 40 mg tablet Take 1 tablet by mouth once daily. 90 tablet 3 BABY ASPIRIN ORAL Take 81 mg by mouth once daily. nitroglycerin sublingual (NITROQUICK) 0.4 mg SL tablet Dissolve 0.4 mg under the tongue every 5 minutes as needed for chest pain. fexofenadine (LETITIA) 180 mg tablet Take 1 tablet by mouth once daily. As directed 90 tablet 3 venlafaxine ER (EFFEXOR XR) 150 mg 24 hr capsule Take 1 capsule by mouth once daily. 90 capsule 3 ALPRAZolam (XANAX) 0.25 mg tablet Take 0.5-1 tablets by mouth once daily as needed for up to 180 days. 30 tablet 2 ascorbic acid/collagen hydr (COLLAGEN PLUS VITAMIN C ORAL) Take by mouth. acetaminophen (TYLENOL EXTRA STRENGTH) 500 mg tablet Take 2 tablets by mouth every 6 hours as needed for Pain. 60 tablet 3 TIMOPTIC 0.5 % EYE DROPS one drop each eye twice daily [address] (PROTONIX) 40 mg tablet Take 1 tablet by mouth daily before breakfast. Take on empty stomach, 1/2 hr before meal. (Patient not taking: Reported on 08/10/2024) 90 tablet 3 No current facility-administered medications for this visit. ALLERGIES: Amoxicillin, Macrobid [Nitrofurantoin Monohyd/M-Cryst], Percodan [Oxycodone-Aspirin], Polysporin [Bacitracin-Polymyxin B], and Sulfa (Sulfonamide Antibiotics) PERSONAL HISTORY: Social History Tobacco Use Smoking status: Never Smokeless tobacco: Never Vaping Use Vaping status: Never Used Substance Use Topics Alcohol use: Yes Comment: rarely Drug use: Never FAM (more content not included)...[facility]09-27-2024 History of Present illness Narrative* Marek Petersen MD - 08/10/2024 4:26 PM EDT HISTORY AND PHYSICAL Hollie Ugarte 1940 REFERRING PHYSICIAN: Self CHIEF COMPLAINT: skin lesion HPI: The patient is a 84 year old female. She presents with a raised purple slightly ulcerated nodule on her left posterior shoulder. She has noticed a spot for a long time. She notes some discomforton palpation and notes that she has dull aching in her shoulder at times. The patient is on Plavix and aspirin. She had an NSTEMI last year on November 05. 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 She is having no chest pain or other problems since. She has a history of both breast cancer and skin cancer. SIGNIFICANT MEDICAL PROBLEMS: PAST MEDICAL HISTORY Diagnosis Date Abdominal pain, [...] (peripheral) insufficiency Unspecified vitamin D deficiency 03/12/2008 OPERATIONS: PAST SURGICAL HISTORY Procedure Laterality Date CARPAL TUNNEL 12/01/10 left hand, [facility], Dr Kahn CHOLECYSTECTOMY 08/29/1995 Cholecystectomy CMBND ANTERPOST COLPORRAPHY W/CYSTO 2006 dr. hwang and lisha COLONOSCOPY FLX DX W/COLLJ SPEC WHEN PFRMD 01/30/2004 Colonoscopy MAL LESION NECK,HAND,SCAL 0.6-1CM 07/14/11 Exc. left post-auricular skin lesion MASTECTOMY 07/31/1998 left PAST SURGICAL HISTORY OF 12/01/10 Left middle trigger finger release, STEVENDr Kahn REM LESION NEC,HND,SCAL 0.6-1.0CM 12/09/07 Exc. right frontal scalp lesion S SLING BLADR PELVI TOTL 9269 2006 [place] TOTAL ABDOMINAL HYSTERECT W/WO RMVL TUBE OVARY 03/07/1984 Hysterectomy, JERRY XCAPSL CTRC RMVL INSJ IO LENS PROSTH W/O ECP Cataract Removal CURRENT MEDICATIONS: Current Outpatient Medications Medication Sig Dispense Refill omeprazole (PRILOSEC) 40 mg capsule Take 40 mg by mouth once daily. albuterol HFA (VENTOLIN HFA) 90 mcg/actuation inhaler inhale 2 puffs as instructed every 4 hours asneeded for wheezing / shortness of breath 18 g 3 fluticasone (FLONASE) 50 mcg/actuation nasal spray Use 2 Sprays in each nostril once daily. 3 Each 3 isosorbide mononitrate ER (IMDUR) 30 mg 24 hr tablet Take 1 tablet by mouth every afternoon. ergocalciferol 50,000 unit capsule (VITAMIN D2, DRISDOL) Take by mouth. BREO ELLIPTA 100-25 mcg/dose inhaler INHALE 1 PUFF DAILY with good oral care amLODIPine (NORVASC) 5 mg tablet take 1 tablet by mouth once daily 90 tablet 3 clopidogrel (PLAVIX) 75 mg tablet Take 1 tablet by mouth once daily. 90 tablet 3 metoprolol tartrate, short acting, (LOPRESSOR) 25 mg tablet Take 1 tablet by mouth two times a day.180 tablet 3 penicillin V potassium 500 mg tablet Take 1 tablet by mouth once daily. 90 tablet 3 atorvastatin (LIPITOR) 40 mg tablet Take 1 tablet by mouth once daily. 90 tablet 3 BABY ASPIRIN ORAL Take 81 mg by mouth once daily. nitroglycerin sublingual (NITROQUICK) 0.4 mg SL tablet Dissolve 0.4 mg under the tongue every 5 minutes as needed for chest pain. fexofenadine (LETITIA) 180 mg tablet Take 1 tablet by mouth once daily. As directed 90 tablet 3 venlafaxine ER (EFFEXOR XR) 150 mg 24 hr capsule Take 1 capsule by mouth once daily. 90 capsule 3 ALPRAZolam (XANAX) 0.25 mg tablet Take 0.5-1 tablets by mouth once daily as needed for up to 180 days. 30 tablet 2 ascorbic acid/collagen hydr (COLLAGEN PLUS VITAMIN C ORAL) Take by mouth. acetaminophen (TYLENOL EXTRA STRENGTH) 500 mg tablet Take 2 tablets by mouth every 6 hours as needed for Pain. 60 tablet 3 TIMOPTIC 0.5 % EYE DROPS one drop each eye twice daily [address] (PROTONIX) 40 mg tablet Take 1 tablet by mouth daily before breakfast. Take on empty stomach, 1/2 hr before meal. (Patient not taking: Reported on 08/10/2024) 90 tablet 3 No current facility-administered medications for this visit. ALLERGIES: Amoxicillin, Macrobid [Nitrofurantoin Monohyd/M-Cryst], Percodan [Oxycodone-Aspirin], Polysporin [Bacitracin-Polymyxin B], and Sulfa (Sulfonamide Antibiotics) PERSONAL HISTORY: Social History Tobacco Use Smoking status: Never Smokeless tobacco: Never Vaping Use Vaping status: Never Used Substance Use Topics Alcohol use: Yes Comment: rarely Drug use: Never FAMILY HISTORY: FAMILY HISTORY Problem Relation Age of Onset Heart Father Hypertension Sister Heart Sister Heart Brother Hypertension Brother REVIEW OF SYMPTOMS: The review of systems data was entered by the nurse and reviewed by me There are no exam notes on file for this visit. PHYSICAL EXAMINATION: General: The patient is 84 year old female, well nourished, well hydrated in no acute distress. Thepatient is oriented to time, place, and person. VITALS: Blood pressure 130/70, pulse 89, temperature 36.2 C (97.2 F), height 149.9 cm (4' 11), weight 71.4 kg (157 lb 6.4 oz), SpO2 95%. Body mass index is 31.79 kg/m . HEENT: Normal cephalic, ataumatic, pupils are equally round, sclera are anicteric, mucous membranesare moist, oropharynx is clear. Neck has no masses, asymmetry or lymphadenopathy. Thyroid is unremarkable. Respiratory: Clear to auscultation and percussion. Normal respiratory excursion and pattern. Cardiac: Examination is regular rate and rhythm. Extremities: no clubbing, cyanosis or edema. No adenopathy. Other: Location: Left posterior shoulder-a 1-1/2 cm raised exophytic lesion relatively smooth with a central ulceration possible skin cancer versus chronically irritated tag this is located close to her bra strap- LABORATORY VALUES: As Noted RADIOLOGIC STUDIES: As Noted Assessment IMPRESSION: SKIN LESION - LEFT POSTERIOR SHOULDER PLAN: Hollie will return for excision of the skin lesion at a later date. I called and left a message to the cardiology office to ask if we can hold her Plavix for 2 days. They will return with that information. We will call the patient at that time and schedule her for excision in the office. Diagnoses: (L98.9) Skin lesion (primary encounter diagnosis) Return to Clinic: The patient is instructed to follow-up with me for excision. Marek Petersen MD documented in this [facility]07-[facility]-2024 NoteHNO ID: [id number] Author: MIRYAM BOND APRN.ASSISTANT BUYER Service: ? Author Type: Nurse Practitioner Type: Progress Notes Filed: 05/18/2024 10:00 Note Text: SUBJECTIVE Hollie Ugarte is a 83 year old female here today for a check up on her medical problems. Chief Complaint Patient presents with: F/U 6 months HPI Hollie Ugarte is a 83 year old female. She is an established patient of Amrik Mejia MD. Here today for a routine 6 month follow up. Overall doing well. She was seen this past February for follow up on chest pain. None since then, seeing cardiology. Sleep is okay, gets up to urinate at times. Appetite is good. Reflux controlled. No recent chest pains or chest tightness or shortness of breath. Follows with cardiology, [facility]. Remission from breast cancer since 1997. Would like COVID booster today. Mood stable. Her medications were reviewed today and her list is now up to date. Medications Current Outpatient Medications Medication Sig albuterol HFA (VENTOLIN HFA) 90 mcg/actuation inhaler inhale 2 puffs as instructed every 4 hours as needed for wheezing / shortness of breath fluticasone (FLONASE) 50 mcg/actuation nasal spray Use 2 Sprays in each nostril once daily. isosorbide mononitrate ER (IMDUR) 30 mg 24 hr tablet Take 1 tablet by mouth every afternoon. ergocalciferol 50,000 unit capsule (VITAMIN D2, DRISDOL) Take by mouth. BREO ELLIPTA 100-25 mcg/dose inhaler INHALE 1 PUFF DAILY with good oral care amLODIPine (NORVASC) 5 mg tablet take 1 tablet by mouth once daily clopidogrel (PLAVIX) 75 mg tablet Take 1 tablet by mouth once daily. metoprolol tartrate, short acting, (LOPRESSOR) 25 mg tablet Take 1 tablet by mouth two times a day. pantoprazole DR (PROTONIX) 40 mg tablet Take 1 tablet by mouth daily before breakfast. Take on empty stomach, 1/2 hr before meal. penicillin V potassium 500 mg tablet Take 1 tablet by mouth once daily. atorvastatin (LIPITOR) 40 mg tablet Take 1 tablet by mouth once daily. BABY ASPIRIN ORAL Take 81 mg by mouth once daily. nitroglycerin sublingual (NITROQUICK) 0.4 mg SL tablet Dissolve 0.4 mg under the tongue every 5 minutes as needed for chest pain. fexofenadine (LETITIA) 180 mg tablet Take 1 tablet by mouth once daily. As directed venlafaxine ER (EFFEXOR XR) 150 mg 24 hr capsule Take 1 capsule by mouth once daily. ALPRAZolam (XANAX) 0.25 mg tablet Take 0.5-1 tablets by mouth once daily as needed for up to 180 days. ascorbic acid/collagen hydr (COLLAGEN PLUS VITAMIN C ORAL) Take by mouth. acetaminophen (TYLENOL EXTRA STRENGTH) 500 mg tablet Take 2 tablets by mouth every 6 hours as needed for Pain. TIMOPTIC 0.5 % EYE DROPS one drop each eye twice daily No current facility-administered medications for this visit. ALLERGIES Allergen Reactions Amoxicillin GI Upset high doses -diarrhea Macrobid [Nitrofura* Diarrhea Percodan [Oxycodone* Unknown Polysporin [Bacitra* Sulfa (Sulfonamide * ACTIVE PROBLEM LIST Obesity, Class I, Bmi 30-34.9 - 05/18/2024 Syncope - 06/05/2019 Vitamin D Deficiency - [...] Comment: right sacral area from prior shingles Unspecified Hemorrhoids Without Mention of Complication Comment: [...] rarely Drug use: Never Review of Systems Constitutional: Negative. Respiratory: Negative. Cardiovascular: Negative. OBJECTIVE BP 112/64 Pulse 64 Wt 153 lb (69.4kg) SpO2 97% Physical Exam Vitals and nursing note reviewed. Constitutional: General: She is awake. She is not in acute distress. Appearance: Normal appearance. She is well-developed and well-groomed. She is not ill-appearing, toxic-appearing or diaphoretic. HENT: Head: Normocephalic. Right Ear: External ear normal. Left Ear: External ear normal. Nose: Nose normal. Eyes: General: Vision grossly intact. Conjunctiva/sclera: Conjunctivae normal (more content not included)...[facility]07-05-2024 History of Present illness Narrative* Miryam Bond APRN.ASSISTANT BUYER - 05/18/2024 9:31 AM EDT SUBJECTIVE Hollie Ugarte is a 83 year old female here today for a check up on her medical problems. Chief Complaint Patient presents with: F/U 6 months HPI Hollie Ugarte is a 83 year old female. She is an established patient of Amrik Mejia MD. Here today for a routine 6 month follow up. Overall doing well. She was seen this past February for follow up on chest pain. None since then, seeing cardiology. Sleep is okay, gets up to urinate at times. Appetite is good. Reflux controlled. No recent chest pains or chest tightness or shortness of breath. Follows with cardiology, [facility]. Remission from breast cancer since 1997. Would like COVID booster today. Mood stable. Her medications were reviewed today and her list is now up to date. Medications Current Outpatient Medications Medication Sig albuterol HFA (VENTOLIN HFA) 90 mcg/actuation inhaler inhale 2 puffs as instructed every 4 hours asneeded for wheezing / shortness of breath fluticasone (FLONASE) 50 mcg/actuation nasal spray Use 2 Sprays in each nostril once daily. isosorbide mononitrate ER (IMDUR) 30 mg 24 hr tablet Take 1 tablet by mouth every afternoon. ergocalciferol 50,000 unit capsule (VITAMIN D2, DRISDOL) Take by mouth. BREO ELLIPTA 100-25 mcg/dose inhaler INHALE 1 PUFF DAILY with good oral care amLODIPine (NORVASC) 5 mg tablet take 1 tablet by mouth once daily clopidogrel (PLAVIX) 75 mg tablet Take 1 tablet by mouth once daily. metoprolol tartrate, short acting, (LOPRESSOR) 25 mg tablet Take 1 tablet by mouth two times a day. pantoprazole DR (PROTONIX) 40 mg tablet Take 1 tablet by mouth daily before breakfast. Take on empty stomach, 1/2 hr before meal. penicillin V potassium 500 mg tablet Take 1 tablet by mouth once daily. atorvastatin (LIPITOR) 40 mg tablet Take 1 tablet by mouth once daily. BABY ASPIRIN ORAL Take 81 mg by mouth once daily. nitroglycerin sublingual (NITROQUICK) 0.4 mg SL tablet Dissolve 0.4 mg under the tongue every 5 minutes as needed for chest pain. fexofenadine (LETITIA) 180 mg tablet Take 1 tablet by mouth once daily. As directed venlafaxine ER (EFFEXOR XR) 150 mg 24 hr capsule Take 1 capsule by mouth once daily. ALPRAZolam (XANAX) 0.25 mg tablet Take 0.5-1 tablets by mouth once daily as needed for up to 180 days. ascorbic acid/collagen hydr (COLLAGEN PLUS VITAMIN C ORAL) Take by mouth. acetaminophen (TYLENOL EXTRA STRENGTH) 500 mg tablet Take 2 tablets by mouth every 6 hours as needed for Pain. TIMOPTIC 0.5 % EYE DROPS one drop each eye twice daily No current facility-administered medications for this visit. ALLERGIES Allergen Reactions Amoxicillin GI Upset high doses -diarrhea Macrobid [Nitrofura* Diarrhea Percodan [Oxycodone* Unknown Polysporin [Bacitra* Sulfa (Sulfonamide * ACTIVE PROBLEM LIST Obesity, Class I, Bmi 30-34.9 - 05/18/2024 Syncope - 06/05/2019 Vitamin D Deficiency - [...] Comment: right sacral area from prior shingles Unspecified Hemorrhoids Without Mention of Complication Comment: [...] rarely Drug use: Never Review of Systems Constitutional: Negative. Respiratory: Negative. Cardiovascular: Negative. OBJECTIVE BP 112/64 Pulse 64 Wt 153 lb (69.4kg) SpO2 97% Physical Exam Vitals and nursing note reviewed. [...] diet - Recommend regular aerobic exercise 2. Coronary artery disease involving [place] 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 angina pectoris- ICD9: 414.01, ICD10: I25.10 Stable, following with [facility] 3. Pure hyperglyceridemia - ICD9: 272.1, ICD10: E78.1 - Control undetermined, due for labs - Counseled on healthy diet and regular exercise - Labs today from standing orders 4. Gastroesophageal reflux disease without esophagitis - ICD9: 530.81, ICD10: K21.9 - Stable. Continue Protonix. 5. Malignant neoplasm of upper-outer quadrant of left female breast, unspecified estrogen receptor status (HCC) - ICD9: 174.4, ICD10: C50.412 Remission. 6. Generalized anxiety disorder - ICD9: 300.02, ICD10: F41.1 Stable. 7. Reactive depression - ICD9: 300.4, ICD10: F32.9 Stable. 8. Encounter for immunization - ICD9: V03.89, ICD10: Z23 - [employer] COVID-19 VACCINE (2022- SEASON) AGE 12+ YR 9. Obesity, Class I, BMI 30-34.9 - ICD9: 278.00, ICD10: E66.9 Portions of this note have been entered by ancillary staff. I have reviewed and when necessary edited, so that they are an adequate record of my encounter with this patient Please note that parts of this document were created using voice recognition software and therefore may contain grammatical errors. Patient verbalizes understanding of instructions from today's visit and in agreement with treatmentplan. Questions answered. Agrees to call the office [...] as well as compliance with taking medications. Age- appropriate health preventative measures were discussed. Return if symptoms worsen or fail to improve, for Keep next scheduled appointment.. Miryam Bond APRN-ROD documented in this encounterK[facility]16-[facility]24 Miscellaneous Notes* Telephone Encounter - Reny Medrano LPN - 02/28/2024 10:11 AM EDT Patient has been identified by name and date of : Yes Patient phones for refill(s): Requested Prescriptions Pending Prescriptions Disp Refills albuterol HFA (VENTOLIN HFA) 90 mcg/actuation inhaler 18 g 3 Sig: inhale 2 puffs as instructed every 4 hours as needed for wheezing / shortness of breath Date of last office visit in primary care: 02/16/2024 Date of next office visit in primary care: 05/18/2024 Please advise. Thank you. Reny Medrano LPN. documented in this encounterK[facility]04-15-2024 Miscellaneous Notes* Telephone Encounter - Reny Medrano LPN - 02/27/2024 4:45 PM EDT Patient has been identified by name and date of : Yes Patient phones for refill(s): Requested Prescriptions Pending Prescriptions Disp Refills fluticasone (FLONASE) 50 mcg/actuation nasal spray 3 Each 3 Sig: Use 2 Sprays in each nostril once daily. Date of last office visit in primary care: 02/16/2024 Date of next office visit in primary care: 05/18/2024 Please advise. Thank you. Reny Medrano LPN. documented in this encounterK[facility]04-04-2024 Instructions* Patient Instructions* Neida Martinez APRN.CNS - 02/16/2024 12:12 PM EDT Check to confirm you have an appointment coming up with cardiology. If you are having chest pain in the future, try using a sublingual nitroglycerin. Place a sublingual nitroglycerin tablet under your tongue and sit or lie down. If you are still having chest pain 5 minutes after this dose you may use a second sublingual nitroglycerin. If you are still having chest pain 5 minutes after the second sublingual nitroglycerin you may takea third. If no relief with this then call 911 for transportation to an emergency room. If you are having increased frequency of chest pain or the sublingual nitroglycerin is not helping and you would like to make a medication change before your next cardiology visit call and let us know. documented in this encounterK[facility]04-04-2024 History of Present illness Narrative* Neida Martinez APRN.CNS - 02/16/2024 11:16 AM EDT SUBJECTIVE: Shingrix Vaccine(1 of 2) Never done Covid-19 Vaccine( season) due on 07/15/2023 Advance Directive Discussion due on 11/14/2023 HPI Hollie Ugarte is a 83 year old female. 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 She presented to on February 15, 2024 with right and left chest pain. History is significant for UT in October 2023. She did undergo PCI to circumflex, 2 stents placed to the circumflex. 70% RCA occlusion also noted. Troponin was negative. Chest x-ray shows chronic changes. EKG showed normal sinus rhythm with a rate of 62 without ischemia or dysrhythmia. ER staff spoke with building and grounds supervisor to advise that since repeat troponin was negative she may be discharged from home with a follow-up in cardiology outpatient. Today notes that she has chest pain about once a week. Does not seem to be related to exertion. Notes can last for few seconds. Does not stop her from completing activities. Notes she can have tingling in her fingers when this occurs. No neck or back pain noted. No current fever. No exacerbation ofcough. She reports she has not used sublingual nitroglycerin before, does not know how to use it. States consistently checking other cardiac medications isosorbide mononitrate, amlodipine and metoprolol tartrate. She has a history of chronic cough and is followed by Dr. Henson physical education specialist. She has an appointment coming up next week. Using treatments as prescribed. She also thinks she has an appointment coming up with cardiology. HTN: Ms. Ugarte is without headache, chest pain, palpitations, dyspnea, peripheral edema, orthopnea, fatigue and PND. Last 14 Encounter BP Readings: Date: BP: 11/16/2023 118/76 05/16/2023 120/70 11/16/2022 136/78 03/08/2022 138/80 02/19/2022 136/88 02/15/2022 134/86 02/13/2022 142/82 11/16/2021 126/74 09/07/2021 138/76 02/24/2021 140/72 07/31/2020 150/82 12/21/2019 122/80 06/30/2019 124/82 06/05/2019 118/62 Doing well on PPI no N/V/D/C, abdominal pain, BRBPR, black or starry stools reported. Review of Systems Constitutional: Negative. Cardiovascular: Positive for chest pain. Gastrointestinal: Negative. Objective BP 119/70 Pulse 69 Resp 16 Wt 68.9 kg (152 lb) SpO2 97% BMI 30.70 kg/m Physical Exam Vitals and nursing note [...] Rhythm: Normal rate and regular rhythm. Pulses: Carotid pulses are 2+ on the right side and 2+ on the left side. Radial pulses are 2+ on the right side and 2+ on the left side. Heart sounds: Normal heart sounds. Pulmonary: Effort: [...] Upset high doses -diarrhea Macrobid [Nitrofura* Diarrhea Percodan [Oxycodone* Unknown Polysporin [Bacitra* Sulfa (Sulfonamide * MEDICATIONS isosorbide mononitrate ER (IMDUR) 30 mg 24 hr tablet Take 1 tablet by mouth every afternoon. ergocalciferol 50,000 unit capsule (VITAMIN D2, DRISDOL) Take by mouth. BREO ELLIPTA 100-25 mcg/dose inhaler INHALE 1 PUFF DAILY with good oral care amLODIPine (NORVASC) 5 mg tablet take 1 tablet by mouth once daily clopidogrel (PLAVIX) 75 mg tablet Take 1 tablet by mouth once daily. metoprolol tartrate, short acting, (LOPRESSOR) 25 mg tablet Take 1 tablet by mouth two times a day. pantoprazole DR (PROTONIX) 40 mg tablet Take 1 tablet by mouth daily before breakfast. Take on empty stomach, 1/2 hr before meal. penicillin V potassium 500 mg tablet Take 1 tablet by mouth once daily. atorvastatin (LIPITOR) 40 mg tablet Take 1 tablet by mouth once daily. BABY ASPIRIN ORAL Take 81 mg by mouth once daily. nitroglycerin sublingual (NITROQUICK) 0.4 mg SL tablet Dissolve 0.4 mg under the tongue every 5 minutes as needed for chest pain. fexofenadine (LETITIA) 180 mg tablet Take 1 tablet by mouth once daily. As directed venlafaxine ER (EFFEXOR XR) 150 mg 24 hr capsule Take 1 capsule by mouth once daily. ALPRAZolam (XANAX) 0.25 mg tablet Take 0.5-1 tablets by mouth once daily as needed for up to 180 days. fluticasone (FLONASE) 50 mcg/actuation nasal spray Use 2 Sprays in each nostril once daily. albuterol HFA (VENTOLIN HFA) 90 mcg/actuation inhaler inhale 2 puffs as instructed every 4 hours asneeded for wheezing / shortness of breath ascorbic acid/collagen hydr (COLLAGEN PLUS VITAMIN C ORAL) Take by mouth. acetaminophen (TYLENOL EXTRA STRENGTH) 500 mg tablet Take 2 tablets by mouth every 6 hours as needed for Pain. TIMOPTIC 0.5 % EYE DROPS one drop each eye twice daily omeprazole (PRILOSEC) 40 mg capsule Take 40 mg by mouth once daily. (Patient not taking: Reported on 02/16/2024) cholecalciferol, Vitamin D3, (VITAMIN D3) 1,250 mcg (50,000 unit) cap capsule 1 capsule every otherweek (or twice monthly) or as directed based on labs (Patient not taking: Reported on 02/16/2024) PAST MEDICAL HISTORY Diagnosis Date Abdominal pain, [...] Abs Lymph 1.00 - 4.00 k/uL 1.88 Hanson% % 6.7 Abs Hanson <0.87 k/uL 0.58 Eosin% % 2.2 Abs [...] mg/dL 114 Cholesterol, Total (mg/dL) Date Value 05/18/2023 176 02/23/2021 195 HDL Cholesterol (mg/dL) Date Value 05/18/2023 45 02/23/2021 50 LDL Cholesterol (mg/dL) Date Value 05/18/2023 77 02/23/2021 97 Triglyceride (mg/dL) Date Value 05/18/2023 268 02/23/2021 239 ASSESSMENT/PLAN: 1. Chest pain, unspecified type - ICD9: 786.50, ICD10: R07.9 (primary diagnosis) History of UT October 2023. Followed by [facility]. Now with chest pain. Review of OSH notes indicates 2 coronary stents to the circumflex in October, 70% occlusion RCA not intervened. Medical management. Negative troponin, no ischemic changes or rhythm disturbances noted in ER. She reports right and left-sided chest pain about once per week. Recommend continue with current treatment unchanged for now. Reviewed how to use sublingual nitroglycerin for chest pain as she has never used it. She stated she did not know how. If she finds this is ineffective then consider increase dose of isosorbide amlodipine or metoprolol. Continue on with aspirin Plavix statin unchanged. Schedule cardiology visit if not already done so. 2. Coronary artery disease involving [place] 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 angina pectoris- ICD9: 414.01, ICD10: I25.10 CT chest 10/2023 [facility] at time of UT. 6 mo follow up with MD Neida Alejandro APRN.CERTIFIED NURSING ATTENDANT Medical Decision Making: Problems: Moderate: 1+ chronic illnesses with change Data: Unique source(s) for external note(s) reviewed: 1 Unique test result(s) reviewed: 3+ Risk: Moderate: Drug management Medical Decision Making Level: 4 - Moderate documented in this encounterK[facility]24 Hospital Discharge instructions Additional Instructions Your lab work and chest x-ray are normal. Follow-up with Dr. Abad in 3 to 5 days. Return to the ED for worsening or concerning symptoms. Work Phone: [phone]) 300-682203-15-2024 Discharge summary Author Hector Feldman January 27, 2024 10:29pm Note Date/Time January 27, 2024 3:5 3pm [facility] Medical Records Department [address] [place] [place] [address] Emergency Department Summary 01/27/24 MR#: [id number] Acct: [id number] Name: HOLLIE UGARTE Rep #:[id number] : 1940 83 From: Hector Feldman MD PCP: Dr. Amrik Mejia MD Status:RE G ER Location: ED HPI History of Present Illness Chief Complaint: Chest Other Detail of Chief Complaint: Right scapular pain and tingling right upper extremity Informant: patient and family Onset/Context/Timing Onset: Today and Hours (Onset 11 AM, question accuracy, detailed HPI) Context: Sudden Onset Timing: Continuous Quality: Right scapular upper back pain and right upper extremity tingling Location: Right side Current Severity: Mild Maximum Severity: Mild Worsened by: Nothing Relieved by: Nothing Associated Symptoms Associated Symptoms: Nothing Narrative Narrative: Patient is a 83-year-old woman who states she developed a rapid heartbeat at cardiac rehab. Even though her heart rate was rapid she states she still performed the activity. The nurse at cardiac rehab was contacted. Patient's heart rate was 20 beats above baseline. It was not rapid. It was within normalrange. Heart rate went as high as 108 with activity. The nurse from cardiac rehab said she is an anxious patient and possibly based on what she told her shemay have made her anxious. Patient states when she had her UT in October she had chest pain, low back pain, buttocks pain, and teeth pain. She also had pain in the right shoulder region. She had 2 stents placed at that time. Will review prior records to confirm what her symptoms were. Patient denies radiation of the discomfort, dyspnea, dyspnea on exertion, nauseaor vomiting or diaphoresis. She has no other symptoms. She denies fever, chills night sweats. She denies ocular, visual auditory symptoms. She has trouble with speech or swallowing. She denies weakness in her upper or lower extremities. She denies problems with coordination or balance. Prior similar symptoms: No Recent Ill[facility]: [facility] Medical History Anxiety and depression Breast cancer CAD (coronary artery disease) Hypertension Home Medications alprazolam 0.25 mg tablet 0.125 - 0.25 mg PO BID PRN Anxiety 10/14/15 [History Last Taken 01/21/24] amlodipine 5 mg tablet 5 mg PO DAILY blood prssure 10/14/15 [History Last Taken 01/27/24] timolol maleate 0.5 % eye drops 1 drp BID glaucoma 10/14/15 [History Last Taken 01/27/24] ergocalciferol (vitamin D2) 1,250 mcg (50,000 unit) capsule (Vitamin D2) 50,000 unit PO UD supplement 01/26/16 [History Last Taken 01/22/24] fluticasone furoate 200 mcg-vilanterol 25 mcg/dose inhalation powder (Breo Ellipta) 1 puff inhalation DAILY lungs 11/03/18 [History Last Taken 01/27/24] omeprazole 40 mg capsule,delayed release 40 mg PO DAILY gerd 11/03/18 [History Last Taken 01/27/24] penicillin V potassium 500 mg tablet 500 mg PO DAILY prophylaxis 09/12/20 [History Last Taken 01/27/24] venlafaxine 150 mg capsule,extended release 24 hr 150 mg PO DAILY depression 09/12/20 [History Last Taken 01/27/24] albuterol sulfate 90 mcg/actuation aerosol inhaler 2 inh inhalation Q4H PRN Wheezing 08/31/22 [History Last Taken 08/30/22] fexofenadine 180 mg tablet 180 mg PO DAILY allergies 08/31/22 [History Last Taken 01/27/24] fluticasone propionate 50 mcg/actuation nasal spray,suspension 2 spray intranasal DAILY PRN allergies 08/31/22 [History Last Taken 2 Days Ago ~08/29/22] aspirin 81 mg chewable tablet 81 mg PO DAILYCM #0 tabs 11/06/23 [Rx Last Taken 01/27/24] nitroglycerin 0.4 mg sublingual tablet 0.4 mg sublingual Q5M PRN Chest pain #10 tabs 11/06/23 [Rx Last Taken Unknown] atorvastatin 40 mg tablet 40 mg PO QHS #90 tabs 12/09/23 [Rx Last Taken 01/26/24] clopidogrel 75 mg tablet 75 mg PO DAILY #90 tabs 12/09/23 [Rx Last Taken 01/27/24] isosorbide mononitrate 30 mg tablet,extended release 24 hr 30 mg PO DAILY #30 tabs 12/09/23 [Rx Last Taken 01/27/24] metoprolol tartrate 25 mg tablet 25 mg PO BID #180 tabs 12/09/23 [Rx Last Taken 01/27/24] Allergy/AdvReac Type Severity Reaction Status Date / Time hydrogen peroxide AdvReac Other Verified 01/27/24 13:38 oxycodone HCl [From Percodan] AdvReac Nausea Verified 01/27/24 13:38 oxycodone terephthalate AdvReac Nausea Verified 01/27/24 13:38 [From Percodan] Sulfa (Sulfonamide AdvReac Nausea/Vom/ Verified 01/27/24 13:38 Antibiotics) Diarrhea Surgical History H/O: hysterectomy Hx of appendectomy Hx of cholecystectomy Hx of mastectomy Hx of tonsillectomy Stented coronary artery (~11/05/23) Social History Smoking Status: Never smoker ROS ROS ED Constitutional Constitutional ED: Denies chills, fever(s), subjective or sweats Eyes Eyes: Denies blurry vision, change in vision or diplopia ENT ENT ED: Denies ear pain, rhinorrhea or sore throat Cardiovascular Cardiovascular: Denies chest pain, orthopnea, palpitations, paroxysmal nocturnaldyspnea or racing heartbeat Respiratory/Chest Respiratory/Chest: Denies cough, dyspnea, dyspnea on exertion, orthopnea or paroxysmal nocturnal dyspnea Gastrointestinal Gastrointestinal: Denies abdominal pain, melena, nausea or vomiting Genitourinary Genitourinary ED: Denies dysuria, hematuria or urinary frequency Musculoskeletal Musculoskeletal: Reports back pain; Denies arthralgias, myalgias or neck pain Integumentary Denies rash Neurologic Neurologic: Denies headache(s), paresthesias or weakness Psychiatric Psychiatric: Reports anxiety Endocrine Endocrinology: Denies cold intolerance or heat intolerance Hematologic/Lymphatic Hematologic/Lymphatic: Reports systems reviewed and no addt'l complaints, exceptas documented EXAM Physical Exam Const Vital Signs: 01/27/24 13:37 01/27/24 15:12 01/27/24 16:10 Temperature 96.6 F L Temperature Source Temporal Pulse Rate 78 83 75 Respiratory Rate 18 20 H 24 H Blood Pressure 147/82 H 138/83 H 151/73 H Blood Pressure Mean 103 101 99 Pulse Ox 100 96 95 Oxygen Delivery Method Room Air Room Air Room Air 01/27/24 16:53 01/27/24 18:10 01/27/24 21:31 Temperature 98.1 F 96.6 F L Temperature Source Oral Temporal Pulse Rate 76 100 Respiratory Rate 18 18 Blood Pressure 142/85 H 145/80 H 138/81 H Blood Pressure Mean 104 101 100 Pulse Ox 95 95 Oxygen Delivery Method Room Air Room Air Positive well nourished, well developed and obese General Appearance ED: well developed and NAD; Negative for cyanotic, diaphoretic or pallor Nutritional Appearance: obese HEENT Reports moist mucous membranes HEENT Narrative: Head is atraumatic and normocephalic. Ears are normal. Nares patent. Posterior pharynx is normal. Eyes PERRL and EOMs intact bilaterally General Eye ED: Negative for pale conjunctiva or scleral icterus Neck no lymphadenopathy, supple and no JVD Chest Wall inspection of chest normal and palpation of chest normal Resp normal respiratory effort and clear to auscultation bilaterally Cardio regular rate, regular rhythm, S1 normal heart sound, S2 normal heart sound and no murmurs GI normal to inspection, nondistended, normoactive bowel sounds, non-tender, non-distended and no masses; Negative for hepatosplenomegaly GI Narrative: There is no abdominal bruit or pulsatile mass. Auscultation: hypoactive bowel sounds Palpation: Negative for mass or rebound tenderness present Back/Spine no CVA tenderness Thoracic Spine / Upper Back: Negative for thoracic spinal tenderness Lumbar Spine / Lower Back: Negative for lumbar spinal tenderness Extremity normal to inspection Neuro oriented x3, CN's II-XII intact bilaterally and no sensory deficits noted Neuro Narrative: Sensation is normal and there is no difference tween right and left. There is no clonus or Babinski sign. There is no axillary, median, radial or ulnar dysfunction right or left upper extremity. Radial pulses palpable and symmetric. There is no dysmetria. Sensorium / Orientation: alert Motor Exam: strength 5/5 throughout Psych mental status grossly normal Skin no rashes or lesions noted, no wounds and skin turgor normal General Skin Exam: Negative for jaundice or pallor MDM MDM MDM Narrative Medical decision making narrative: Cardiac order set was initiated by nurse protocol. Differential diagnosis is anxiety, musculoskeletal pain, atypical cardiac pain, pneumonia, diaphragmatic irritation History & Record Review Discussion w/independent historian: Patient and Family Additional record(s) reviewed:: Prior outpatient record, Prior ED visit and Prior labs Lab Data Attestation: I reviewed the patient's lab results. Lab results narrative: CBC is unremarkable. Basic metabolic panel reveals slight elevation of creatinine to 1.10 with an estimated GFR 51. First troponin is normal at 28. Labs: Laboratory Results - last 24 hr 01/27/24 01/27/24 14:20 16:54 WBC 5.3 RBC 5.27 Hgb 15.1 H Hct 45.6 MCV 86.5 MCH 28.7 MCHC 33.1 RDW Std Deviation 43.7 RDW Coeff of Henry 13.7 Plt Count 242 MPV 10.3 Immature Gran % (Auto) 0.200 Neut % (Auto) 65.1 Lymph % (Auto) 18.7 L Hanson % (Auto) 13.6 H Eos % (Auto) 1.3 Baso % (Auto) 1.1 H Absolute Neuts (auto) 3.5 Absolute Lymphs (auto) 0.99 Nucleated RBC % 0 Sodium 138 Potassium 3.9 Chloride 104 Carbon Dioxide 27.0 Anion Gap 7 BUN 20 H Creatinine 1.10 H Est GFR (MDRD) Af Amer 61 Est GFR (MDRD) Non-Af 51 L BUN/Creatinine Ratio 18.2 Glucose 106 Calcium 9.2 Troponin I High Sens 28 24 Patient's first and second troponin were normal. There was an error in recording of her troponin which led to delay. Radiography Chest X-Ray - ED: 1 View and Read by ED Physician (Dependent reviewed interpreted by me as negative at 1500. Patient's cardiac silhouette and size normal. She is slightly rotated. There is some minimal chronic lung parenchymal changes. Perihilar region is normal. Osseous structures reveal no acute process.) Diagnostic Testing: Clinical Impression(s) from Imaging Studies Chest X-Ray 01/27/24 14:48 IMPRESSION: No interval change Electronically Signed: Gavin Jones MD at 15:15 EDT Reading Location ID and State: [address] [place] [address] , Service support , EKG Initial EKG: Attestation: I personally reviewed and interpreted this EKG as follows: Interpretation: Sinus Rhythm (Rate is 80. HI interval is 162 ms per curesduration 82 ms. QT is 392 ms. [place] is to the left. 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 The EKG is unchanged from November 06, 2023.) Treatment and Re-Evaluation :: Patient was informed that her cardiac markers are normal. With 2 normal high-sensitivity troponins and delta less than 4 patient was discharged home. Suspect this has an anxiety component. Discharge Plan Triage Chief Complaint: Chest Other ED Provider: Hector Feldman Dx/Rx/DC Orders Clinical Impression: Periscapular pain of right shoulder, Stented coronary artery, CAD (coronary artery disease), History of anxiety Instructions: ED Pain, Acute, Uncertain Cause Prescriptions: No Action clopidogrel 75 mg tablet 75 mg PO DAILY Qty: 90 3RF atorvastatin 40 mg tablet 40 mg PO QHS Qty: 90 3RF metoprolol tartrate 25 mg tablet 25 mg PO BID Qty: 180 3RF isosorbide mononitrate 30 mg tablet extended release 24 hr 30 mg PO DAILY Qty: 30 11RF amlodipine 5 MG tablet 5 mg PO DAILY timolol maleate 1 DROP drops 1 drp Each Eye BID alprazolam 0.25 MG tablet 0.125 - 0.25 mg PO BID PRN (Reason: Anxiety) ergocalciferol (vitamin D2) [Vitamin D2] 50,000 UNIT capsule 50,000 unit PO UD Patient Comments: TAKES EVERY OTHER WEEK ON TUESDAY Rx Instructions: every other week ON TUESDAY omeprazole 40 MG capsule,delayed release(DR/EC) 40 mg PO DAILY fluticasone furoate-vilanterol [Breo Ellipta] 1 EACH blister with device 1 puff inhalation DAILY Patient Comments: inhale 1 puff once daily, use with good oral care venlafaxine 150 MG capsule,extended release 24hr 150 mg PO DAILY penicillin V potassium 500 MG tablet 500 mg PO DAILY fexofenadine 180 mg tablet 180 mg PO DAILY albuterol sulfate 90 mcg/actuation HFA aerosol inhaler 2 inh INHALATION Q4H PRN (Reason: Wheezing) Patient Comments: inhale 2 puffs by mouth every 4 hours if needed for wheezing or shortness of breath fluticasone propionate 50 mcg/actuation spray,suspension 2 spray INTRANASAL DAILY PRN (Reason: allergies) Patient Comments: instill 2 sprays into each nostril once daily nitroglycerin 0.4 mg Tablet, Sublingual 0.4 mg sublingual Q5M PRN (Reason: Chest pain) Qty: 10 0RF aspirin 81 mg Tablet,Chewable 81 mg PO DAILYCM Qty: 0 0RF Primary Care Provider: Amrik Mejia Referrals: Amrik Mejia MD [Primary Care Provider] - 3-5 Days if not improving Disposition Disposition: Home, Self Care What to do if you have Problems For any increased pain, shortness of breath, bleeding, nausea or vomiting, chestpain, or any unexpected problems, contact your Primary Care Provider. Call [facility] ([phone]) or report to the closest Emergency Room. Call 911 if necessary. 01/27/242228 <Electronically signed by Hector Feldman MD> Cosigner Signature (if applicable): CC: Dr. Amrik Mejia MD ~ Signed Work Phone: [phone] 442-120703-12-2024 Miscellaneous Notes* Telephone Encounter - Reny Medrano LPN - 01/24/2024 10:37 AM EDT Patient has been identified by name and [...] you. Reny Medrano LPN. documented in this encounterK[facility]-2024 Instructions* Patient Instructions* Amrik Mejia MD - 11/16/2023 11:29 AM EST Labs after 1 month then prior to 6 month follow ups documented in this encounterK[facility]01-03-2024 History of Present illness Narrative* Amrik Mejia MD - 11/16/2023 10:50 AM EST Transitional Care Management TCM Eligibility Documentation The following information was gathered during patient outreach Date of Outreach: 11/10/2023 11/09/2023 Outreach Attempt 1: - - Outreach Attempt 2: - Contact Not Made Date of Discharge 11/06/2023 11/06/2023 Some recent data might be hidden Provider Documentation Hollie Ugarte is a 83 year old female here today for a follow up from recent hospitalization. Wayne reviewed the patient's hospital course including discharge summary, discharge medications , and follow up needs with the patient and any family members present at today's visit. HPI Patient presents with: F/U 6 months Transition Of Care: [facility] F/U 11/05/23 - 11/06/23 SUBJECTIVE: Hollie Ugarte is a 83 year old year [...] in close by into new home she hadbuilt. See assessment and plan for other issues [...] minutes as needed for chest pain. fexofenadine (LETITIA) 180 mg tablet Take 1 tablet by mouth once daily. As directed venlafaxine ER (EFFEXOR XR) 150 mg 24 hr capsule Take 1 capsule by mouth once daily. cholecalciferol, Vitamin D3, (VITAMIN D3) 1,250 mcg (50,000 unit) cap capsule 1 capsule every otherweek (or twice monthly) or as directed based [...] 2 puffs as instructed every 4 hours asneeded for wheezing / shortness of breath ascorbic [...] Diagnosis ICD-10-CM 1. Coronary artery disease involving [place] 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 angina [id number] Doing well since hospitalization and stent placement 2. H/O non-ST elevation myocardial infarction (NSTEMI) I25.2 Doing well 3. S/P drug eluting coronary stent placement Z95.5 Left circumflex 4. Cough R05.9 penicillin V potassium 500 mg tablet sometimes productive of green sputum, sometimes dry; chronic. History of bronchiectasis noted.Follows with physical education specialist 5. Essential hypertension I10 COMP METABOLIC PANEL [...] and regular exercise and adequate sleep. Amrik Mejia MD [facility] Discharge summary Author Vinod Car November 06, 2023 8:36am Note Date/Time November 06, 2023 8:31am [facility] Medical Records Department [address] [place] [address] Discharge Summary 11/06/23 0828 MR#: [id number] Acct: [id number] Name: HOLLIE UGARTE Rep #:[id number] : 1940 83 From: Vinod Car DO PCP: Dr. Amrik Mejia MD Status:AD M IN Location: [place] [id number] Providers Date of Admission: 11/05/23 Primary Care Physician: Dr. Amrik Mejia MD Consultations 11/05/23 04:11 Consult: Cardiology Urgent Consulting Provider: [facility] Reason for Consult: Non-ST elevation [place] EMERGENT Consult: No MD Notified: Yes Date Notified: 11/05/23 Time Notified: 06:33 Method of Notification: Text Method of Consult:: In-Person Reason For Visit: NSTEMI WITH UNCONTROLLED HYPERTENSION Diagnosis Discharge Diagnosis (1) NSTEMI, initial episode of care: Status: Acute Code(s): I21.4 - Non-ST elevation (NSTEMI) myocardial infarction (2) Uncontrolled hypertension: Status: Acute Code(s): I10 - Essential (primary) hypertension Plan NSTEMI * Trop went from 147 to 2357 to 5155. * Atorvastatin, ASA, Clopidogrel, metoprolol and therapuetic enoxaparin. * Echocardiogram shows an EF 45 to 50% with stage I diastolic dysfunction. * Patient underwent PCI to left circumflex lesion with drug-eluting stent. * Patient to continue with ticagrelor and aspirin. Patient will have staged PCI of the RCA lesion as outpatient next week. Uncontrolled Hypertension * Currently improved * 179/87 mm Hg present shortly after admission * Continue home regimen plus add low-dose metoprolol plus give prn IV hydralazine for systolic blood pressure > 160 mm Hg. * Overall improved. Chronic conditions: * Obesity; with BMI of 32.1 this admission - Weight loss will be recommended. Check TSH 3.12 * History of breast cancer - continue outpt follow up. * Depression with anxiety - Continue home medications as previous. Give Xanax as needed for breakthrough symptoms. * Glaucoma - Resume timolol ophthalmic drops. * GERD - Continue PPI. * Osteoarthritis - Stable. DVT prophylaxis -not indicated as patient is already anticoagulated. Medications at Discharge Home Medications alprazolam 0.25 mg tablet 0.125 - 0.25 mg PO BID PRN PRN Anxiety 10/14/15 amlodipine 5 mg tablet 5 mg PO DAILY blood prssure 10/14/15 timolol maleate 0.5 % eye drops 1 drp BID glaucoma 10/14/15 ergocalciferol (vitamin D2) 1,250 mcg (50,000 unit) capsule (Vitamin D2) 50,000 unit PO UD supplement 01/26/16 fluticasone furoate 200 mcg-vilanterol 25 mcg/dose inhalation powder (Breo Ellipta) 1 puff inhalation DAILY lungs 11/03/18 omeprazole 40 mg capsule,delayed release 40 mg PO DAILY gerd 11/03/18 penicillin V potassium 500 mg tablet 500 mg PO DAILY prophylaxis 09/12/20 venlafaxine 150 mg capsule,extended release 24 hr 150 mg PO DAILY depression 09/12/20 albuterol sulfate 90 mcg/actuation aerosol inhaler 2 inh inhalation Q4H PRN Wheezing 08/31/22 fexofenadine 180 mg tablet 180 mg PO DAILY allergies 08/31/22 fluticasone propionate 50 mcg/actuation nasal spray,suspension 2 spray intranasal DAILY allergies 08/31/22 aspirin 81 mg chewable tablet 81 mg PO DAILYCM #0 tabs 11/06/23 atorvastatin 40 mg tablet 40 mg PO QHS #30 tabs 11/06/23 clopidogrel 75 mg tablet 75 mg PO DAILY #30 tabs 11/06/23 metoprolol tartrate 25 mg tablet 25 mg PO BID #60 tabs 11/06/23 nitroglycerin 0.4 mg sublingual tablet 0.4 mg sublingual Q5M PRN Chest pain #10 tabs 11/06/23 Hospital Course Operations None Procedures 2-D Echocardiogram and Cardiac catheterization Summary of Care Provided Minutes Spent on Discharge: 35 Hospital Course: Patient presents with chest pain. Patient was found to have a non-ST ovation myocardial infarction. Patient underwent cardiac catheterization on the asshe was having ongoing chest pain. She was found to have two-vessel disease involving RCA as well as circumflex. Circumflex was the culprit lesion and did have drug- eluting stent placed to the. Subsequently, the patient is feeling better. Patient will continue with aspirin and ticagrelor for 1 year. Patient follow-up cardiology as outpatient. Echocardiogram shows a reduced ejection fraction of 45 to 50%. Weight / BMI Weight Weight: 70.5 kg Body Mass Index (BMI) 32.5 ABG / Lab / Microbiology Data 11/06/23 05:27 11/06/23 05:27 Laboratory: Laboratory Results - last 24 hr 11/06/23 05:27: WBC 7.8, RBC 5.03, Hgb 14.4, Hct 45.1, MCV 89.7, MCH 28.6, MCHC 31.9 L D, RDW Std Deviation 43.9, RDW Coeff of Henry 13.4, Plt Count 313, MPV 10.1, Sodium 139, Potassium 3.5, Chloride 107, Carbon Dioxide 26.0, Anion Gap 6,BUN 13, Creatinine 0.76, Estim Creat Clear Calc 48.27, Est GFR (MDRD) Af Amer 94, Est GFR (MDRD) Non-Af 77, BUN/Creatinine Ratio 17.1, Glucose 110 H, Calcium 8.8, Total Bilirubin 0.60, AST 307 H, ALT 63 H, Alkaline Phosphatase 75, Total Protein 6.4, Albumin 3.1 L, Globulin 3.3, Albumin/Globulin Ratio 0.9 Radiography Diagnostic Testing: Radiology Impression Echocardiogram 11/05/23 04:11 Interpretation Summary The estimated ejection fraction is 45-50 %. Stage 1 diastolic dysfunction. There are regional wall motion abnormalities as specified. Ordering Physician: Lei Prado Referring Physician: Amrik Mejia M.D. Performed By: Dorinda Eid, MAXINE D/C Instructions Discharge Diet: Low fat / Low cholesterol Meaningful Use Info Meaningful Use Diagnoses (Choose all that apply): AMI AMI/Post PCI/Angioplasty Aspirin given w/in 24hrs of arrival?: Yes ASA at discharge?: Yes Statins at discharge?: Yes Chucho/ARB at discharge?: No Reason Chucho/ARB not ordered:: Hypotension Beta Trudy at discharge?: Yes Done w/ Acute UT measure.: Yes Documented LVEF (%): 45 Discharge Plan Admission Admit Date/Time: 11/05/23 03:26 Primary Reason for Your Visit: Myocardial infarction Attending Provider: Vinod Car Primary Care Provider: Amrik Mejia Consulting Providers: Renata Larkin; Seda Washington; Jen Lindsay; River Arcos; Connor Carcamo; Maciel Abad; Basilio Rees; Vinod Moreno; Yris Zavala; Juan Burciaga; Francisco Sotomayor; Annabelle Sandoval; Gege Brewer; Kee Miller; Sam Oswald; Manuel Owen; Miles Ellis; Raj Wheeler EVENT PLANNING INTERN; Renata Holland NP;Vicky Leon; Lei Prado Instructions Additional Instructions / Restrictions: You had a myocardial infarction, heart attack. You had a stent placed to one- vessel and is very important that you do take aspirin and Plavix without interruption. He also have another vessel which building and grounds supervisor recommends following up next week to have that addressed with another stent. If you have any further chest pain notify your physician or return to the emergency room. Discharge Orders/Prescriptions Prescriptions: New atorvastatin 40 mg Tablet 40 mg PO QHS Qty: 30 0RF clopidogrel 75 mg Tablet 75 mg PO DAILY Qty: 30 0RF nitroglycerin 0.4 mg Tablet, Sublingual 0.4 mg sublingual Q5M PRN (Reason: Chest pain) Qty: 10 0RF aspirin 81 mg Tablet,Chewable 81 mg PO DAILYCM Qty: 0 0RF metoprolol tartrate 25 mg Tablet 25 mg PO BID Qty: 60 0RF Continued amlodipine 5 MG tablet 5 mg PO DAILY timolol maleate 1 DROP drops 1 drp Each Eye BID alprazolam 0.25 MG tablet 0.125 - 0.25 mg PO BID PRN PRN (Reason: Anxiety) ergocalciferol (vitamin D2) [Vitamin D2] 50,000 UNIT capsule 50,000 unit PO UD Patient Comments: TAKES EVERY OTHER WEEK ON TUESDAY Rx Instructions: every other week ON TUESDAY omeprazole 40 MG capsule,delayed release(DR/EC) 40 mg PO DAILY Patient Comments: TAKE ONE CAPSULE BY MOUTH ONCE DAILY fluticasone furoate-vilanterol [Breo Ellipta] 1 EACH blister with device 1 puff inhalation DAILY Patient Comments: inhale 1 puff once daily, use with good oral care venlafaxine 150 MG capsule,extended release 24hr 150 mg PO DAILY penicillin V potassium 500 MG tablet 500 mg PO DAILY Patient Comments: take 1 tablet by mouth once daily fexofenadine 180 mg tablet 180 mg PO DAILY Patient Comments: take 1 tablet by mouth once daily albuterol sulfate 90 mcg/actuation HFA aerosol inhaler 2 inh INHALATION Q4H PRN (Reason: Wheezing) Patient Comments: inhale 2 puffs by mouth every 4 hours if needed for wheezing or shortness of breath fluticasone propionate 50 mcg/actuation spray,suspension 2 spray INTRANASAL DAILY Patient Comments: instill 2 sprays into each nostril once daily Discontinued ibuprofen [Advil] 200 mg Tablet 200 mg PO QHS Referrals / Follow Up: [facility] [Provider Group] - Within 1 Week Amrik Mejia MD [Primary Care Provider] - Within 2 Weeks Disposition Disposition (needs filled in before D/C Order can be placed): Home, Self Care Charges/Coding Visit Charges Inpatient E&M: 20567 Disch Hosp >30min 11/06/23 0836 <Electronically signed by Vinod Car DO> Cosigner Signature (if applicable): CC: Dr. Vinod Car DO; Dr. Amrik Mejia MD~ Signed Work Phone: 1(415) 443-997112-24-2023 Progress note Author Vinod Car November 06, 2023 8:28am Note Date/Time November 06, 2023 7:54am [facility] Medical Records Department [address] [place] [address] Progress Note - Hospitalist 11/06/23 0752 MR#: [id number] Acct: [id number] Name: HOLLIE UGARTE Rep #:[id number] : 1940 83 From: Vinod Car DO PCP: Dr. Amrik Mejia MD Status:AD M IN Location: [place] [address] Subjective Subjective Feels well. Denies any chest pain or back pain nor any upper extremity paresthesias. Objective Data Objective Data Vital Signs: Vital Signs Temp Pulse Resp BP Pulse Ox O2 Del Method O2 Flow Rate 36.5 C L 85 18 129/85 H 95 Room Air 2 11/06/23 03:10 11/06/23 07:08 11/06/23 07:08 11/06/23 03:10 11/06/23 07:08 11/06/23 07:08 11/05/23 16:03 Oxygen Flow Rate (L/min) 2 Oxygen Delivery Method Room Air Weight: 70.5 kg Body Mass Index (BMI) 32.5 Intake & Output: Intake and Output for Last 24 Hours 11/04/23 11/05/23 11/06/23 23:59 23:59 23:59 Intake Total 1760 / 1760 Balance 1760 / 1760 Lab / Micro Data 11/06/23 05:27 11/06/23 05:27 Labs: Laboratory Results - last 24 hr 11/06/23 05:27: WBC 7.8, RBC 5.03, Hgb 14.4, Hct 45.1, MCV 89.7, MCH 28.6, MCHC 31.9 L D, RDW Std Deviation 43.9, RDW Coeff of Henry 13.4, Plt Count 313, MPV 10.1, Sodium 139, Potassium 3.5, Chloride 107, Carbon Dioxide 26.0, Anion Gap 6,BUN 13, Creatinine 0.76, Estim Creat Clear Calc 48.27, Est GFR (MDRD) Af Amer 94, Est GFR (MDRD) Non-Af 77, BUN/Creatinine Ratio 17.1, Glucose 110 H, Calcium 8.8, Total Bilirubin 0.60, AST 307 H, ALT 63 H, Alkaline Phosphatase 75, Total Protein 6.4, Albumin 3.1 L, Globulin 3.3, Albumin/Globulin Ratio 0.9 Radiography Diagnostic Testing: Radiology Impression Echocardiogram 11/05/23 04:11 Interpretation Summary The estimated ejection fraction is 45-50 %. Stage 1 diastolic dysfunction. There are regional wall motion abnormalities as specified. Ordering Physician: Lei Prado Referring Physician: Amrik Mejia M.D. Performed By: Dorinda Eid RDCS Physical Exam Const alert and no apparent distress HEENT head/scalp atraumatic Resp normal respiratory effort, no retractions, no use of accessory muscles and clearto auscultation bilaterally Cardio regular rate, regular rhythm, S1 normal heart sound and S2 normal heart sound GI normal to inspection, nondistended, normoactive bowel sounds, soft to palpation,non-tender and non-distended Neuro oriented x3 and CN's II-XII intact bilaterally Psych affect normal Assessment & Plan Assessment/Plan (1) NSTEMI, initial episode of care: (2) Uncontrolled hypertension: PLAN: Plan NSTEMI * Trop went from 147 to 2357 to 5155. * Atorvastatin, ASA, Clopidogrel, metoprolol and therapuetic enoxaparin. * Echocardiogram shows an EF 45 to 50% with stage I diastolic dysfunction. * Patient underwent PCI to left circumflex lesion with drug-eluting stent. * Patient to continue with ticagrelor and aspirin. Patient will have staged PCI of the RCA lesion as outpatient next week. Uncontrolled Hypertension * Currently improved * 179/87 mm Hg present shortly after admission * Continue home regimen plus add low-dose metoprolol plus give prn IV hydralazine for systolic blood pressure > 160 mm Hg. * Overall improved. Chronic conditions: * Obesity; with BMI of 32.1 this admission - Weight loss will be recommended. Check TSH 3.12 * History of breast cancer - continue outpt follow up. * Depression with anxiety - Continue home medications as previous. Give Xanax as needed for breakthrough symptoms. * Glaucoma - Resume timolol ophthalmic drops. * GERD - Continue PPI. * Osteoarthritis - Stable. DVT prophylaxis -not indicated as patient is already anticoagulated. 11/06/23827 <Electronically signed by Vinod Car DO> Cosigner Signature (if applicable): CC: ~ Signed Work Phone: 1(182) 327-930112-23-2023 Consult note Author Yris Zavala November 05, 2023 1:34pm Note Date/Time November 05, 2023 11:38am [facility] Medical Records Department [address] [place] [address] Consultation - Cardiology 11/05/23 1129 MR#: [id number] Acct: [id number] Name: HOLLIE UGARTE Rep #:[id number] : 1940 83 From: Yris Zavala MD PCP: Dr. Amrik Mejia MD Status:AD M IN Location: [place] [address] Assessment & Plan Assessment/Plan (1) Breast cancer: (2) NSTEMI, initial episode of care: (3) Chest pain: (4) Elevated troponin: PLAN: Plan 83-year-old, pleasant patient presented to the ER At brought in by the EMS as she had symptoms of chestpain evidently the symptoms had been from yesterday morning and Her symptoms got worse described as severe retrosternal with some radiation to the back as well she had numbness and discomfort in both left and right arm. Symptoms responded this morning to nitroglycerin type II Patient was treated for non-STEMI by Lovenox, atorvastatin, beta-trudy, aspirin There is no prior cardiac history She had a history of hypertension History of breast cancer status postsurgery in 1988 and she been following regularly with mammogram. The online trader showed normal sinus Cardiac exam S1-S2 regular Chest exam is clear to auscultation Cardiac care plan; 1. I reviewed and discussed her current medication today She had significant elevation of cardiac biomarker with high sensitive troponin I unchanging the EKG Likely she had a lesion in the left circumflex artery. The echocardiographic evaluation Today revealed evidence of inferior posterior hypokinesia overall LV function ismildly reduced And no significant valve abnormality Her aortic valve is a trileaflet with no evidence of aortic stenosis. 2. Patient still had symptoms of chest pain when I came to see and I will proceed with cardiac catheterization Cardiac care plan and plan of cardiac catheterization discussed in detail today with the patient nursing staff and the family and she elected to proceed and will proceed with cardiac cath. Yris Zavala MD,[facility] HPI Consult Data Date of Consult: 11/05/23 HPI Narrative Reason for Consultation: NSTEMI/CP HPI Narrative: HOLLIE UGARTE, is a 83 F who presents [facility] Medical History Anxiety and depression Breast cancer Hypertension Home Medications alprazolam 0.25 mg tablet 0.125 - 0.25 mg PO BID PRN PRN Anxiety 10/14/15 [History Last Taken 08/26/22] amlodipine 5 mg tablet 5 mg PO DAILY blood prssure 10/14/15 [History Last Taken 08/31/22] timolol maleate 0.5 % eye drops 1 drp BID glaucoma 10/14/15 [History Last Taken 08/31/22] ergocalciferol (vitamin D2) 1,250 mcg (50,000 unit) capsule (Vitamin D2) 50,000 unit PO UD supplement 01/26/16 [History Last Taken 08/22/22] fluticasone furoate 200 mcg-vilanterol 25 mcg/dose inhalation powder (Breo Ellipta) 1 puff inhalation DAILY lungs 11/03/18 [History Last Taken 08/31/22] omeprazole 40 mg capsule,delayed release 40 mg PO DAILY gerd 11/03/18 [History Last Taken 08/31/22] penicillin V potassium 500 mg tablet 500 mg PO DAILY prophylaxis 09/12/20 [History Last Taken 08/31/22] venlafaxine 150 mg capsule,extended release 24 hr 150 mg PO DAILY depression 09/12/20 [History Last Taken 08/31/22] albuterol sulfate 90 mcg/actuation aerosol inhaler 2 inh inhalation Q4H PRN Wheezing 08/31/22 [History Last Taken 08/30/22] fexofenadine 180 mg tablet 180 mg PO DAILY allergies 08/31/22 [History Last Taken 08/31/22] fluticasone propionate 50 mcg/actuation nasal spray,suspension 2 spray intranasal DAILY allergies 08/31/22 [History Last Taken 2 Days Ago ~08/29/22] ibuprofen 200 mg tablet (Advil) 200 mg PO QHS PAIN 08/31/22 [History Last Taken 08/30/22] Allergy/AdvReac Type Severity Reaction Status Date / Time hydrogen peroxide AdvReac Other Verified 11/05/23 04:23 oxycodone HCl [From Percodan] AdvReac Nausea Verified 11/05/23 04:23 oxycodone terephthalate AdvReac Nausea Verified 11/05/23 04:23 [From Percodan] Sulfa (Sulfonamide AdvReac Nausea/Vom/ Verified 11/05/23 04:23 Antibiotics) Diarrhea Surgical History H/O: hysterectomy Hx of appendectomy Hx of cholecystectomy Hx of mastectomy Hx of tonsillectomy Social History Smoking Status: Never smoker Physical Exam Cardio Cardio Narrative: This patient seen and evaluated today at bedside/along with the nursing staff Family were at bedside. Patient admitted with symptoms of retrosternal chest pain with numbness of both left and right arm Evidently the symptoms has been from yesterday morning. backpackers manager showed normal sinus rhythm Cardiovascular exam S1-S2 is regular Chest exam is clear to auscultation bilateral Examination lower extremity no lower extremity edema Risk Stratification Risk Stratification Applicable: Yes Age >/= 65: Yes >/= 3 CAD Risk Factors (HTN, HLD, DM, family hx of CAD, or current smoker): Yes Aspirin Use in the Past 7 Days: Yes Severe Angina (>/= episodes in 24 hours): Yes EKG ST Changes >/= 0.5mm: Yes Positive Cardiac Marker: Yes PATRICIA Risk Stratification Score: 6 PATRICIA % Risk: 41% Risk Objective Data Vital Signs: Vital Signs Temp Pulse Resp BP Pulse Ox O2 Del Method 97.8 F 81 16 108/66 96 Room Air 11/05/23 10:26 11/05/23 10:52 11/05/23 10:52 11/05/23 10:52 11/05/23 10:52 11/05/23 10:26 Oxygen Delivery Method Room Air Weight: 155 lb 6.814 oz Body Mass Index (BMI) 32.5 Lab / Micro Data 11/05/23 04:53 11/05/23 04:53 Labs: Laboratory Results - last 24 hr 11/04/23 23:44: WBC 7.0, RBC 5.58 H, Hgb 16.1 H, Hct 49.3 H, MCV 88.4, MCH 28.9,MCHC 32.7, RDW Std Deviation 43.2, RDW Coeff of Henry 13.3, Plt Count 355, MPV 9.8, Immature Gran % (Auto) 0.300, Neut % (Auto) 57.1, Lymph % (Auto) 29.5, Hanson% (Auto) 8.7, Eos % (Auto) 3.4, Baso % (Auto) 1.0, Absolute Neuts (auto) 4.0, Absolute Lymphs (auto) 2.07, Nucleated RBC % 0, D-Dimer Quant (PE/DVT) 0.34, Sodium 139, Potassium 4.0, Chloride 105, Carbon Dioxide 28.0, Anion Gap 6, BUN 15, Creatinine 0.98, Estim Creat Clear Calc 48.70, Est GFR (MDRD) Af Amer 70, Est GFR (MDRD) Non-Af 58 L, BUN/Creatinine Ratio 15.3, Glucose 107 H, Calcium 9.6, Troponin I High Sens 147 H* 11/05/23 04:53: WBC 7.4, RBC 5.41 H, Hgb 15.9 H, Hct 47.3 H, MCV 87.4, MCH 29.4,MCHC 33.6, RDW Std Deviation 42.5, RDW Coeff of Henry 13.2, Plt Count 331, MPV 9.6, Sodium 140, Potassium 3.8, Chloride 109 H, Carbon Dioxide 25.0, Anion Gap 6, BUN 12, Creatinine 0.93, Estim Creat Clear Calc 51.91, Est GFR (MDRD) Af Amer74, Est GFR (MDRD) Non-Af 61, BUN/Creatinine Ratio 12.9, Glucose 117 H, Calcium 8.6, Total Bilirubin 0.40, AST 33, ALT 22, Alkaline Phosphatase 77, Troponin I High Sens 2357 H*, Total Protein 7.1, Albumin 3.6, Globulin 3.5, Albumin/Globulin Ratio 1.0, Triglycerides 292 H, Cholesterol 163, LDL Cholesterol 56, VLDL Cholesterol 58 H, HDL Cholesterol 49, TSH 3.12 11/05/23 06:43: Troponin I High Sens 5155 H* Cardiology Labs/Tests 11/04/23 23:44: WBC 7.0, RBC 5.58 H, Hgb 16.1 H, Hct 49.3 H, MCV 88.4, MCH 28.9,MCHC 32.7, Plt Count 355, MPV 9.8, Immature Gran % (Auto) 0.300, Neut % (Auto) 57.1, Lymph % (Auto) 29.5, Hanson % (Auto) 8.7, Eos % (Auto) 3.4, Baso % (Auto) 1.0, Absolute Neuts (auto) 4.0, Nucleated RBC % 0, D-Dimer Quant (PE/DVT) 0.34, Sodium 139, Potassium 4.0, Chloride 105, Carbon Dioxide 28.0, Anion Gap 6, BUN 15, Creatinine 0.98, Est GFR (MDRD) Af Amer 70, Est GFR (MDRD) Non-Af 58 L, BUN/Creatinine Ratio 15.3, Glucose 107 H, Calcium 9.6 11/05/23 04:53: WBC 7.4, RBC 5.41 H, Hgb 15.9 H, Hct 47.3 H, MCV 87.4, MCH 29.4,MCHC 33.6, Plt Count 331, MPV 9.6, Sodium 140, Potassium 3.8, Chloride 109 H, Carbon Dioxide 25.0, Anion Gap 6, BUN 12, Creatinine 0.93, Est GFR (MDRD) Af Amer 74, Est GFR (MDRD) Non-Af 61, BUN/Creatinine Ratio 12.9, Glucose 117 H, Calcium 8.6, Total Bilirubin 0.40, Triglycerides 292 H, Cholesterol 163, LDL Cholesterol 56, VLDL Cholesterol 58 H, HDL Cholesterol 49 Rhythm: EKG: ECHO: Stress Test: Cardiac Cath: PCI: CT Surgery: Holter monitor: EPS: PPM: CXR: Chest CT Scan: Radiography Diagnostic Testing: Radiology Impression Chest X-Ray 11/05/23 01:10 IMPRESSION: 1. Patchy opacities in the right upper lobe likely represent bronchiectatic changes with mucoid impaction was seen on prior CT scan. There may be concrete pneumonia. This appears increased compared with the prior chest x-ray 09/16/2020. 2. Persistent opacities right lung base unchanged. Electronically Signed: Juan Cerrato MD at 1:43 EST , Chest CT 11/05/23 03:07 IMPRESSION: Multiple areas of bronchial filling defects with adjacent nodular opacity. This appearance is present on the 2019 study, though has progressed, suggesting chronic infectious/inflammatory process. Electronically Signed: Saad Marvin MD at 4:13 EST , Echocardiogram 11/05/23 04:11 Interpretation Summary The estimated ejection fraction is 45-50 %. Stage 1 diastolic dysfunction. There are regional wall motion abnormalities as specified. Ordering Physician: Lei Prado Referring Physician: Amrik Mejia M.D. Performed By: Dorinda Eid RDCS 11/05/23 1334 <Electronically signed by Yris Zavala MD> Cosigner Signature (if applicable): CC: EVENT PLANNING INTERNBenji Wheeler; EVENT PLANNING INTERNBenji Holland; Connor Carcamo MD; Dr. Seda Washington MD; Dr. Jen Lindsay MD; Dr. River Arcos MD; Dr. Maceil Abad MD; Dr. Lei Prado DO; Dr. Basilio Rees MD; Dr. Vinod Moreno MD; Dr. Yris Zavala MD; Dr. Amrik Mejia MD; Dr. Juan Burciaga MD; Dr. Annabelle Sandoval MD; Dr. Francisco Sotomayor MD; Dr. Gege Brewer MD; Dr. Kee Miller MD; Dr. Manuel Owen MD; Dr. Sam Oswald MD; Dr. Miles Ellis MD; Renata Larkin; ADELAIDA Miles~ Signed Work Phone: [phone]) 861-857312-23-2023 Progress note Author Vinod Car November 05, 2023 12:31pm Note Date/Time November 05, 2023 8:06am [facility] Medical Records Department [address] [place] [address] Progress Note - Hospitalist 11/05/23 0800 MR#: [id number] Acct: [id number] Name: HOLLIE UGARTE Rep #:[id number] : 1940 83 From: Vinod Car DO PCP: Dr. Amrik Mejia MD Status:AD M IN Location: [place] [address] Reason for Visit Reason for Visit: Diagnoses Malignant neoplasm of unspecified site of unspecified female breast (11/05/23) Essential (primary) hypertension (11/05/23) Non-ST elevation (NSTEMI) myocardial infarction (11/05/23) Other specified abnormal findings of blood chemistry (11/05/23) Subjective Subjective Still having chest pain as well as back pain and numbness down both her arms. Objective Data Objective Data Vital Signs: Vital Signs Temp Pulse Resp BP Pulse Ox O2 Del Method 36.4 C L 65 18 162/80 H 96 Room Air 11/05/23 04:19 11/05/23 06:36 11/05/23 06:36 11/05/23 04:56 11/05/23 06:36 11/05/23 06:36 Oxygen Delivery Method Room Air Weight: 70.5 kg Body Mass Index (BMI) 32.5 Lab / Micro Data 11/05/23 04:53 11/05/23 04:53 Labs: Laboratory Results - last 24 hr 11/04/23 23:44: WBC 7.0, RBC 5.58 H, Hgb 16.1 H, Hct 49.3 H, MCV 88.4, MCH 28.9,MCHC 32.7, RDW Std Deviation 43.2, RDW Coeff of Henry 13.3, Plt Count 355, MPV 9.8, Immature Gran % (Auto) 0.300, Neut % (Auto) 57.1, Lymph % (Auto) 29.5, Hanson% (Auto) 8.7, Eos % (Auto) 3.4, Baso % (Auto) 1.0, Absolute Neuts (auto) 4.0, Absolute Lymphs (auto) 2.07, Nucleated RBC % 0, D-Dimer Quant (PE/DVT) 0.34, Sodium 139, Potassium 4.0, Chloride 105, Carbon Dioxide 28.0, Anion Gap 6, BUN 15, Creatinine 0.98, Estim Creat Clear Calc 48.70, Est GFR (MDRD) Af Amer 70, Est GFR (MDRD) Non-Af 58 L, BUN/Creatinine Ratio 15.3, Glucose 107 H, Calcium 9.6, Troponin I High Sens 147 H* 11/05/23 04:53: WBC 7.4, RBC 5.41 H, Hgb 15.9 H, Hct 47.3 H, MCV 87.4, MCH 29.4,MCHC 33.6, RDW Std Deviation 42.5, RDW Coeff of Henry 13.2, Plt Count 331, MPV 9.6, Sodium 140, Potassium 3.8, Chloride 109 H, Carbon Dioxide 25.0, Anion Gap 6, BUN 12, Creatinine 0.93, Estim Creat Clear Calc 51.91, Est GFR (MDRD) Af Amer74, Est GFR (MDRD) Non-Af 61, BUN/Creatinine Ratio 12.9, Glucose 117 H, Calcium 8.6, Total Bilirubin 0.40, AST 33, ALT 22, Alkaline Phosphatase 77, Troponin I High Sens 2357 H*, Total Protein 7.1, Albumin 3.6, Globulin 3.5, Albumin/Globulin Ratio 1.0, Triglycerides 292 H, Cholesterol 163, LDL Cholesterol 56, VLDL Cholesterol 58 H, HDL Cholesterol 49, TSH 3.12 11/05/23 06:43: Troponin I High Sens 5155 H* Radiography Diagnostic Testing: Radiology Impression Chest X-Ray 11/05/23 01:10 IMPRESSION: 1. Patchy opacities in the right upper lobe likely represent bronchiectatic changes with mucoid impaction was seen on prior CT scan. There may be concrete pneumonia. This appears increased compared with the prior chest x-ray 09/16/2020. 2. Persistent opacities right lung base unchanged. Electronically Signed: Juan Cerrato MD at 1:43 EST , Chest CT 11/05/23 03:07 IMPRESSION: Multiple areas of bronchial filling defects with adjacent nodular opacity. This appearance is present on the 2019 study, though has progressed, suggesting chronic infectious/inflammatory process. Electronically Signed: Saad Marvin MD at 4:13 EST , Physical Exam Const alert and no apparent distress HEENT head/scalp atraumatic Resp normal respiratory effort, no retractions, no use of accessory muscles and clearto auscultation bilaterally Cardio regular rate, regular rhythm, S1 normal heart sound and S2 normal heart sound GI normal to inspection, nondistended, normoactive bowel sounds, soft to palpation,non-tender and non-distended Neuro oriented x3 and moves all extremities Sensorium / Orientation: awake and alert Assessment & Plan Assessment/Plan (1) NSTEMI, initial episode of care: (2) Uncontrolled hypertension: PLAN: Plan NSTEMI * Trop went from 147 to 2357 to 5155. * Atorvastatin, ASA, Clopidogrel, metoprolol and therapuetic enoxaparin. * Echocardiogram shows an EF 45 to 50% with stage I diastolic dysfunction. * seen by cardiology and plan is for cardiac catheterization. Uncontrolled Hypertension * 179/87 mm Hg present shortly after admission * Continue home regimen plus add low-dose metoprolol plus give prn IV hydralazine for systolic blood pressure > 160 mm Hg. Chronic conditions: * Obesity; with BMI of 32.1 this admission - Weight loss will be recommended. Check TSH 3.12 * History of breast cancer - continue outpt follow up. * Depression with anxiety - Continue home medications as previous. Give Xanax as needed for breakthrough symptoms. * Glaucoma - Resume timolol ophthalmic drops. * GERD - Continue PPI. * Osteoarthritis - Stable. DVT prophylaxis -not indicated as patient is already anticoagulated. Discussed with family at bedside. Charges/Coding Visit Charges Inpatient E&M: 39241 Subs Hosp L2 11/05/23 1231 <Electronically signed by Vinod Car DO> Cosigner Signature (if applicable): CC: ~ Signed Work Phone: 1(994) 934-251012-23-2023 History and physical note Author Lei Diaz November 05, 2023 6:59am Note Date/Time November 05, 2023 3:26am [facility] Medical Records Department [address] [place] [address] H&P Exam - Hospitalist 11/05/23 0304 MR#: [id number] Acct: [id number] Name: HOLLIE UGARTE Rep #:[id number] : 1940 83 From: Lei Doe o PCP: Dr. Amrik Mejia MD Status:PRIYA PRO Location: [place] [address] HPI - General General Date of Admission: 11/05/23 Date of Service: 11/05/23 Chief Complaint: Chest Pain with diaphoresis and shortness of breath HPI Narrative HOLLIE UGARTE, is a 83 F with a past medical history of essential hypertension, obesity; with BMI of 32.1 this admission, history of breast cancer; status post left mastectomy with negative lymph nodes and no chemotherapy or radiation,history of COVID-19, history of vitamin B12 deficiency, depression with anxiety,glaucoma, GERD and osteoarthritis who presents to ER complaining of chest pain with diaphoresis and shortness of breath. Ms. Ugarte reports her symptoms began approximately 5 hours prior to arrival with the abrupt onset of severe chest pain that was initially substernal and then radiated across her anterior chest wall and was pressure-like, constant and was made better or worse by nothing. She also admits to some nonproductive cough, mild shortness of breath with slight diaphoresis. She denies associated fever, chills, nausea, vomiting, palpitations, recent illness, recent injury or recent medication changes he does have evidence of left subconjunctival hemorrhage. Inthe ER her initial troponin was markedly elevated at 147 pg/mL with an EKG that did show nonspecific changes in V1 and V2 with inverted T waves - but there was no evidence of acute ischemia complicated by clinical evidence of uncontrolled hypertension with blood pressure of 179/87 mmHg along with an abnormal chest x-ray that shows chronic patchy bronchiectatic changes with mucoid impaction in the right upper lobe similar to her previous CT scan in September 2020 (with new CT pending at this time) and she was then admitted to the PCU for ongoing care for status expected to be greater than 48 hours. [facility] Medical History Anxiety and depression Breast cancer Hypertension Home Medications alprazolam 0.25 mg tablet 0.125 - 0.25 mg PO BID PRN PRN Anxiety 10/14/15 [History Last Taken 08/26/22] amlodipine 5 mg tablet 5 mg PO DAILY blood prssure 10/14/15 [History Last Taken 08/31/22] timolol maleate 0.5 % eye drops 1 drp BID glaucoma 10/14/15 [History Last Taken 08/31/22] ergocalciferol (vitamin D2) 1,250 mcg (50,000 unit) capsule (Vitamin D2) 50,000 unit PO UD supplement 01/26/16 [History Last Taken 08/22/22] fluticasone furoate 200 mcg-vilanterol 25 mcg/dose inhalation powder (Breo Ellipta) 1 puff inhalation DAILY lungs 11/03/18 [History Last Taken 08/31/22] omeprazole 40 mg capsule,delayed release 40 mg PO DAILY gerd 11/03/18 [History Last Taken 08/31/22] penicillin V potassium 500 mg tablet 500 mg PO DAILY prophylaxis 09/12/20 [History Last Taken 08/31/22] venlafaxine 150 mg capsule,extended release 24 hr 150 mg PO DAILY depression 09/12/20 [History Last Taken 08/31/22] albuterol sulfate 90 mcg/actuation aerosol inhaler 2 inh inhalation Q4H PRN Wheezing 08/31/22 [History Last Taken 08/30/22] fexofenadine 180 mg tablet 180 mg PO DAILY allergies 08/31/22 [History Last Taken 08/31/22] fluticasone propionate 50 mcg/actuation nasal spray,suspension 2 spray intranasal DAILY allergies 08/31/22 [History Last Taken 2 Days Ago ~08/29/22] ibuprofen 200 mg tablet (Advil) 200 mg PO QHS PAIN 08/31/22 [History Last Taken 08/30/22] Allergy/AdvReac Type Severity Reaction Status Date / Time hydrogen peroxide AdvReac Other Verified 11/05/23 04:23 oxycodone HCl [From Percodan] AdvReac Nausea Verified 11/05/23 04:23 oxycodone terephthalate AdvReac Nausea Verified 11/05/23 04:23 [From Percodan] Sulfa (Sulfonamide AdvReac Nausea/Vom/ Verified 11/05/23 04:23 Antibiotics) Diarrhea Surgical History H/O: hysterectomy Hx of appendectomy Hx of cholecystectomy Hx of mastectomy Hx of tonsillectomy Social History Smoking Status: Never smoker ROS ROS Narrative Review of systems: Constitutional: Patient denies fever or chills. Eyes: Patient denies blurry vision or discharge from eyes she does have left subconjunctival hemorrhage. ENT: Patient denies runny nose, sore throat or ear pain. Cardiovascular: Patient admits to chest pain but denies palpitations. Respiratory: Patient admits to cough and mild dyspnea. Gastrointestinal: Patient denies nausea or vomiting. Genitourinary: Patient does admit to urinary frequency but denies dysuria or hematuria. Musculoskeletal: Patient admits to back pain but denies neck pain. Integumentary: Patient denies abscess or rash. Neurologic: Patient admits to headache but denies focal neurologic weakness or dizziness. Allergic: Patient denies lip swelling, tongue swelling or urticaria. Hematologic: Patient denies easy bleeding or easy bruisability. Psychiatric: Patient denies uncontrolled depression or anxiety at this time. 14 point review of systems otherwise negative several positives noted above in HPI. Vital Signs Vital Signs Vital Signs: 11/05/23 00:06 11/05/23 00:10 11/05/23 02:09 Temperature 97.9 F 97.9 F Temperature Source Oral Oral Pulse Rate 78 75 Respiratory Rate 18 20 H Blood Pressure 151/91 H 151/91 H Blood Pressure Mean 111 111 Pulse Ox 96 96 97 Oxygen Delivery Method Room Air Room Air Room Air 11/05/23 02:09 Temperature Temperature Source Pulse Rate 73 Respiratory Rate 21 H Blood Pressure 179/87 H Blood Pressure Mean 117 Pulse Ox 97 Oxygen Delivery Method Room Air Weight Weight: 153 lb 10.595 oz Body Mass Index (BMI) 32.1 Physical Exam Const alert, oriented x3, no apparent distress, average body habitus and healthy appearing General Appearance: cooperative HEENT normocephalic, head/scalp atraumatic, hearing grossly normal bilaterally and moist oral mucous membranes Eyes PERRL and EOMs intact bilaterally Eyes Narrative: Evidence of left subconjunctival hemorrhage. Neck no lymphadenopathy and supple Resp normal respiratory effort, no retractions, no use of accessory muscles and clearto auscultation bilaterally Cardio regular rate and regular rhythm GI normal to inspection, nondistended, normoactive bowel sounds, soft to palpation,non-tender and non-distended Extremity normal to inspection and full ROM Skin Skin Narrative: Patient has no evidence of rash. Neuro oriented x3, CN's II-XII intact bilaterally, moves all extremities and no focal motor deficits Sensorium / Orientation: awake, alert, oriented to person, oriented to place andoriented to time Speech: speech normal Motor Exam: strength 5/5 throughout Psych affect normal Results Medical Records Data Attestation: I reviewed the patient's medical records Lab / Micro Data Attestation: I reviewed the patient's lab results. 11/05/23 04:53 11/05/23 04:53 Labs: Laboratory Results - last 24 hr 11/04/23 23:44: WBC 7.0, RBC 5.58 H, Hgb 16.1 H, Hct 49.3 H, MCV 88.4, MCH 28.9,MCHC 32.7, RDW Std Deviation 43.2, RDW Coeff of Henry 13.3, Plt Count 355, MPV 9.8, Immature Gran % (Auto) 0.300, Neut % (Auto) 57.1, Lymph % (Auto) 29.5, Hanson% (Auto) 8.7, Eos % (Auto) 3.4, Baso % (Auto) 1.0, Absolute Neuts (auto) 4.0, Absolute Lymphs (auto) 2.07, Nucleated RBC % 0, D-Dimer Quant (PE/DVT) 0.34, Sodium 139, Potassium 4.0, Chloride 105, Carbon Dioxide 28.0, Anion Gap 6, BUN 15, Creatinine 0.98, Estim Creat Clear Calc 48.70, Est GFR (MDRD) Af Amer 70, Est GFR (MDRD) Non-Af 58 L, BUN/Creatinine Ratio 15.3, Glucose 107 H, Calcium 9.6, Troponin I High Sens 147 H* Imagaing Radiology Impression Chest X-Ray 11/05/23 01:10 IMPRESSION: 1. Patchy opacities in the right upper lobe likely represent bronchiectatic changes with mucoid impaction was seen on prior CT scan. There may be concrete pneumonia. This appears increased compared with the prior chest x-ray 09/16/2020. 2. Persistent opacities right lung base unchanged. Electronically Signed: Juan Cerrato MD at 1:43 EST , Assessment & Plan Assessment/Plan (1) NSTEMI, initial episode of care: (2) Uncontrolled hypertension: PLAN: Plan 1. NSTEMI; evidenced by elevated initial troponin of 147 pg/mL present on admission - Admit to PCU. Continue ECASA and add statin, Plavix plus full-dose Lovenox. Serialize troponin. Check echocardiogram to evaluate LVEF. Give Tylenol as needed for mild to moderate level 1-5 out of 10 pain or fever. Give morphine IV as needed for severe level 6-10 out of 10 pain. Finally, we will consult the building and grounds supervisor on-call to see this patient on-rounds in the AM for further recommendations regarding LHC this admission with help appreciated in advance. 2. Uncontrolled Hypertension of 179/87 mm Hg present shortly after admission complicating #1 - Continue home regimen plus add low-dose metoprolol plus give prn IV hydralazine for systolic blood pressure > 160 mm Hg. 3. Chest x-ray positive for patchy opacities in the right upper lobe with bronchiectatic changes with mucoid impaction similar to previous CT - New CT of the chest is pending at this time to more precisely delineate any potential pathologic characteristics at this time. 4. Obesity; with BMI of 32.1 this admission - Weight loss will be recommended. Check TSH in light of #2. 5. History of breast cancer - Stable. 6. History of COVID-19 - Noted. 7. Depression with anxiety - Continue home medications as previous. Give Xanaxas needed for breakthrough symptoms. 8. Glaucoma - Resume timolol ophthalmic drops. 9. GERD - Continue PPI. 10. Osteoarthritis - Stable. Give Tylenol as outlined in #1. 11. DVT prophylaxis - Patient on full-dose Lovenox for #1. Total time: Approximately 55 minutes. Charges/Coding Visit Charges Inpatient E&M: 14252 Init Hosp L2 11/05/23 0659 <Electronically signed by Lei Prado DO> Cosigner Signature (if applicable): CC: Dr. Lei Prado DO; Dr. Amrik Mejia MD~ Signed Work Phone: [phone]) 962-134412-12-2023 Miscellaneous Notes* Telephone Encounter - Jane Seymour - 10/25/2023 9:08 AM EST Patient has been identified by name and date of : No Patient phones for refill(s): Requested Prescriptions Pending Prescriptions Disp Refills fexofenadine (LETITIA) 180 mg tablet 90 tablet 3 Sig: [...] Thank you. Jane Seymour. documented [facility]-12-2023 Miscellaneous Notes* Telephone Encounter - Jane Seymour - 10/25/2023 9:07 AM EST Patient has been identified by name and [...] Thank you. Jane Seymour. documented in this encounterK[facility]12-01-2023 Evaluation note* Diagnosis Onset Date Resolution Status Chest pain resolved Elevated troponin resolved NSTEMI, initial episode of care resolved Uncontrolled hypertension re solved Stented coronary artery October, [facility] Work Phone: 1(348) 463-422612-01-2023 Evaluation note* Diagnosis Onset Date Resolution Status Admit Date CAD (coronary artery disease) acute April 30, 2025 9:57am Stented coronary artery October, acute April 30, 2025 9:57am Hypertension chronic April 30, 025 9:57am [facility] [place]: [phone]) 537-830011-27-2023 Miscellaneous Notes* Telephone Encounter - Reny Medrano LPN - 10/10/2023 2:43 PM EST Patient has been identified by name and [...] you. Reny Medrano LPN. documented in this encounterK[facility]11-22-2023 Miscellaneous Notes* Telephone Encounter - Donavon Bob LPN - 10/05/2023 3:33 PM EST Spoke with pt and information listed below given. Pt verbalizes understanding. Donavon Bob LPN * Telephone Encounter - Amrik Mejia MD - 10/05/2023 12:39 PM EST The following approved medication requests have been transmitted electronically. Requested Prescriptions Signed Prescriptions Disp Refills ALPRAZolam (XANAX) 0.25 mg tablet 30 tablet 2 Sig: Take 0.5-1 tablets by mouth once daily as needed for up to 180 days. Authorizing Provider: AMRIK MEJIA MD * Telephone Encounter - Obdulia Flores OCCA - 10/04/2023 12:38 PM EST Patient has been identified by name and [...] Thank you. DELROY Molina. documented in this encounterK[facility]07-03-2023 History of Present illness Narrative* Miryam Bond APRN.ASSISTANT BUYER - 05/16/2023 11:01 AM EDT SUBJECTIVE Hollie Ugarte is a 82 year old female here today for a check up on her medical problems. Chief Complaint Patient presents with: Follow Up HPI Hollie Ugarte is a 82 year old female established patient of Amrik Mejia MD who presents today for 6 month follow up. She was last seen in office 11/16/2022 and discussed CHAY, vitamin d def,HTN, GERD, history of breast cancer. Overall feeling fine. Saw Dr. Henson since last visit. Anxiety is doing okay. Overall feeling well. Hollie is a 82 year old female who presents for follow-up for hypertension. They are here today for a recheck of blood pressure. Blood pressure appears to be stable, controlled. Denies any symptomsreferable to elevated blood pressure. Specifically denies headache, chest pain, palpitations, dyspnea and peripheral edema. Tolerating medications well. Has labs ordered from last visit, has not donethem yet. Her medications were reviewed today and [...] (50,000 unit) cap capsule 1 capsule every otherweek (or twice monthly) or as directed based on labs fexofenadine (LETITIA) 180 mg tablet Take 1 tablet by [...] 2 puffs as instructed every 4 hours asneeded for wheezing / shortness of breath ascorbic [...] from today's visit and in agreement with treatmentplan. Questions answered. Agrees to call the office [...] as well as compliance with taking medications. Age- appropriate health preventative measures were discussed. Return if symptoms worsen or fail to improve, for Keep next scheduled appointment.. Miryam Bond APRN-ROD documented in this encounterK[facility]06-19-2023 Miscellaneous Notes* Telephone Encounter - Amrik Mejia MD - 05/02/2023 12:06 AM EDT The following approved medication requests have been transmitted electronically. Requested Prescriptions Signed Prescriptions Disp Refills ALPRAZolam (XANAX) 0.25 mg tablet 30 tablet 2 Sig: Take 0.5-1 tablets by mouth once daily as needed for up to 180 days. Authorizing Provider: AMRIK MEJIA MD * Telephone Encounter - Iza Guerrero LPN - 04/29/2023 12:50 PM EDT Last office visit: 11/16/22 Next appointment scheduled: 05/16/23 Patient phones requesting refills as follows: Requested Prescriptions Pending Prescriptions Disp Refills ALPRAZolam (XANAX) 0.25 mg tablet 30 tablet 2 Sig: Take 0.5-1 tablets by mouth once daily as needed for up to 180 days. Iza Guerrero LPN documented in this encounterK[facility]06-05-2023 Miscellaneous Notes* Telephone Encounter - Reny Medrano LPN - 04/18/2023 3:27 PM EDT Patient has been identified by name and [...] you. Reny Medrano LPN documented in this encounterK[facility]06-05-2023 Miscellaneous Notes* Telephone Encounter - Reny Medrano LPN - 04/18/2023 3:08 PM EDT Patient has been identified by name and [...] Not applicable Please advise. Thank you. Reny Merdano LPN documented in this encounterK[facility]03-29-2023 Miscellaneous Notes* Telephone Encounter - Donavon Bob LPN - 02/09/2023 8:46 AM EDT Patient has been identified by name and date of : Yes, Provider Dr. Mejia Date 02/09/23 Time8:47 am Patient phones for refill(s): Requested Prescriptions [...] Readings: Date: BP: 11/16/2022 136/78 Thank you. Donavon Bob LPN documented in this encounterK[facility]01-03-2023 History of Present illness Narrative* Amrik Mejia MD - 11/16/2022 10:06 AM EST This note was created using Laguor[employer]. Subjective Hollie Ugarte is a 82 year old female. Patient presents with: F/U 6 months SUBJECTIVE: Hollie Ugarte is a 82 year old year old lady here today for 6 month follow up appointment for review of medical conditions. 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 PAST MEDICAL HISTORY Diagnosis Date Abdominal pain, [...] (50,000 unit) cap capsule 1 capsule every otherweek (or twice monthly) or as directed based on labs omeprazole (PRILOSEC) 40 mg capsule Take 1 capsule by mouth once daily. amLODIPine (NORVASC) 5 mg tablet Take 1 tablet by mouth once daily. fluticasone (FLONASE) 50 mcg/actuation nasal spray Use 2 Sprays in each nostril once daily. albuterol HFA (VENTOLIN HFA) 90 mcg/actuation inhaler inhale 2 puffs as instructed every 4 hours asneeded for wheezing / shortness of breath penicillin V potassium (V-CILLIN, VEETIDS) 500 mg tablet Take 1 tablet by mouth once daily. fexofenadine (LETITIA) 180 mg tablet Take 1 tablet by [...] Height as of 09/27/16: 147.3 cm (4' 10). Weight as of this encounter: 73 kg [...] Lymph 1.00 - 4.00 k/uL 1.88 2.03 Hanson% % 6.7 8.0 Abs Hanson <0.87 k/uL 0.58 0.58 Eosin% % 2.2 [...] D3, (VITAMIN D3) 1,250 mcg (50,000 unit) capcapsule VITAMIN D 25 HYDROXY Decreased dose since [...] management. No infection since taking PenVK routinely andstopped wearing compression sleeve 9. Personal history of [...] and regular exercise and adequate sleep. Amrik Mejia MD documented in this encounterCleveland [id number] Miscellaneous Notes* Telephone Encounter - Iza Guerrero LPN - 10/25/2022 10:52 AM EST Last office visit: 03/08/22 Next appointment scheduled: 11/16/22 Patient phones requesting refills as follows: Requested Prescriptions Pending Prescriptions Disp Refills venlafaxine ER (EFFEXOR XR) 150 mg 24 hr capsule 90 capsule 3 Sig: Take 1 capsule by mouth once daily. Please review and advise. Iza Guerrero LPN documented in this encounterK[facility]10-24-2022 Miscellaneous Notes* Telephone Encounter - Amrik Mejia MD - 09/06/2022 2:50 PM EDT The following approved medication requests have been transmitted electronically. Requested Prescriptions Signed Prescriptions Disp Refills ALPRAZolam (XANAX) 0.25 mg tablet 30 tablet 0 Sig: Take 0.5-1 tablets by mouth once daily as needed for up to 60 days. Authorizing Provider: AMRIK MEJIA MD * Telephone Encounter - Carol Ponce Ma - 09/04/2022 11:22 AM EDT Last OV: 03/08/22 Next OV: 11/16/22 documented in this encounterKet[facility]10-11-2022 Miscellaneous Notes* Telephone Encounter - Donavon Bob LPN - 08/24/2022 3:48 PM EDT Spoke with pt and information listed below given. Pt verbalizes understanding. Donavon Bob LPN * Telephone Encounter - Quyen Mcgarry APRN.ROD - 08/24/2022 8:53 AM EDT Patient has labs due, please call and remind her Quyen Mcgarry APRN.CNP * Telephone Encounter - Jolene Bergman LPN - 08/23/2022 2:55 PM EDT Patient has been identified by name and [...] you. Jolene Bergman LPN documented in this encounterK[facility]07-18-2022 Miscellaneous Notes* Telephone Encounter - Jolene Bergman LPN - 05/31/2022 3:46 PM EDT Patient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 Diagnosis Generalized anxiety disorder documented in [facility] [place] [facility]* Diagnosis Generalized anxiety disorder documented [facility] [place] [facility]* Diagnosis Generalized anxiety disorder- Primary Vitamin D deficiency Unspecified vitamin D deficiency Nasal congestion Other diseases of nasal cavity and sinuses Cough Essential hypertension Unspecified essential hypertension Gastroesophageal reflux disease, unspecified whether esophagitis present Encounter for long-term current use of medication Postmastectomy lymphedema syndrome Personal history of breast cancer Personal history of malignant neoplasm of breast [facility] Essential hypertension Unspecified essential hypertension [facility] Diagnosis Essential hypertension Unspecified essential hypertension [facility] [place] [facility]* Diagnosis Generalized anxiety disorder [facility] [place] [facility]* Diagnosis Essential hypertension- Primary Unspecified essential hypertension Pure hyperglyceridemia Gastroesophageal reflux disease without esophagitis Esophageal reflux Malignant neoplasm of upper-outer quadrant of left female breast, unspecified estrogen receptor status (HCC) [facility] [place] [facility]* Diagnosis Generalized anxiety disorder [facility] [place] [facility]* Diagnosis Vitamin D deficiency Unspecified vitamin D deficiency [facility] [place] [facility]* Diagnosis Generalized anxiety disorder [facility] [place] [facility]* Diagnosis Generalized anxiety disorder [facility] [place] [facility]* Diagnosis Onset Date Resolution Status Chest pain acute Elevated troponin acute NSTEMI, initial episode of care acute Uncontrolled hypertension ac [facility] Work Phone: Evaluation note* Diagnosis Onset Date Resolution Status Breast cancer acute Chest pain acute Elevated troponin acute NSTEMI, initial episode of care acute Uncontrolled hypertension ac [facility] Work Phone: Evaluation note* Diagnosis Coronary artery disease involving [place] 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 angina pectoris- Primary H/O non-ST [...] use of medication [facility] Diagnosis Essential hypertension Unspecified essential hypertension [facility] Diagnosis Chest pain, unspecified type- Primary Coronary artery disease involving [place] 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 angina pectoris [facility] Diagnosis Nasal congestion Other diseases of nasal cavity and sinuses [facility] [place] [facility]* Diagnosis Cough [facility] [place] [facility]* Diagnosis Essential hypertension- Primary Unspecified essential hypertension Coronary artery disease involving [place] 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 angina pectoris Pure hyperglyceridemia Gastroesophageal reflux disease without esophagitis Esophageal reflux Malignant neoplasm of upper-outer quadrant of left female breast, unspecified estrogen receptor status (HCC) Generalized anxiety disorder Reactive depression Dysthymic disorder Encounter for immunization Need for other specified prophylactic vaccination against single bacterial disease Obesity, Class I, BMI 30-34.9 Obesity, unspecified [facility] Nasal congestion Other diseases of nasal cavity and sinuses [facility] Diagnosis Nasal congestion Other diseases of nasal cavity and sinuses [facility] Diagnosis Skin lesion- Primary Unspecified disorder of skin and subcutaneous tissue [facility] Cough [facility] Diagnosis Skin lesion- Primary Unspecified disorder of skin and subcutaneous tissue [facility] Diagnosis Visit for suture removal- Primary Encounter for removal of sutures [facility] [place] [facility]* Diagnosis Generalized anxiety disorder [facility] Diagnosis Abdominal pressure- Primary Abdominal pain, unspecified site Urinary frequency Positional lightheadedness Dizziness and giddiness [facility] [place] [facility]* Diagnosis Essential hypertension- Primary Unspecified essential hypertension Generalized anxiety disorder Cough Vitamin D deficiency Unspecified vitamin D deficiency Hyperlipidemia, unspecified hyperlipidemia type penitentiary (current) use of anticoagulants Long-term (current) use of anticoagulants Contusion of left hand, initial encounter [facility] Diagnosis Essential hypertension Unspecified essential hypertension [facility] [place] [facility]* Diagnosis Acute cystitis without hematuria- Primary Acute cystitis Gastroesophageal reflux disease without esophagitis Esophageal reflux [facility] Diagnosis Essential hypertension Unspecified essential hypertension [facility] [place] [facility]* Diagnosis Essential hypertension Unspecified essential hypertension [facility] Additional Instructions Follow-up with your primary care physician. Return back to the ED if symptoms change or worsen. No clear reason for your chest pain at this time. You received your first dose of antibiotics here in the emergency department. Take your next dose this evening. Work Phone: Reason for referral (narrative)No reason for referral information availableW[facility]oster [facility] Work Phone: Advance Directives Documents on File Type Date Recorded Patient Lead Technician Expl anation Advance Directive(s) 02/06/2013 11:39 AM Advance Directive(s) 12/15/2011 12:00 AM Advance Directive(s) 12/30/2006 12:00 AM Advance Directive Response Recorded Date/ Time Advance Directives Yes December 08, 2016 12:26pm Living Will Yes September 16 1:40pm Power of Crystalizer Tender Yes September 16, 2020 1:40pm Documents on File Type Date Recorded Patient Lead Technician Expl anation Advance Directive(s) 02/06/2013 11:39 AM Advance Directive(s) 12/15/2011 12:00 AM Advance Directive(s) 12/30/2006 12:00 AM Documents on File Type Date Recorded Patient Lead Technician Expl anation Advance Directive(s) 02/06/2013 11:39 AM Advance Directive(s) 12/15/2011 Advance Directive(s) 12/30/2006 Advance Directive Response Recorded Date/ Time Advance Directives Yes December 08, 2016 12:26pm Living Will Yes August 31 11:43am Power of Crystalizer Tender Yes August 31, 2022 11:43am Name of Medical Power of Crystalizer Tender at bed side August 31, 2022 11:43am Advance Directive Response Recorded Date/ Time Advance Directives Yes December 08, 2016 11:26am Living Will Yes August 31 10:43am Power of Crystalizer Tender Yes August 31, 2022 10:43am Name of Medical Power of Crystalizer Tender at bed side August 31, 2022 10:43am Advance Directive Response Recorded Date/ Time Advance Directives Yes December 08, 2016 11:26am Living Will Yes November 05, 023 12:10am Power of Crystalizer Tender Yes November 05, 2023 12:10am Name of Medical Power of Crystalizer Tender ANTONETTE GILL LDER November 05, 2023 12:10am Advance Directive Response Recorded Date/ Time Name of Medical Power of Crystalizer Tender ANTONETTE HINESHOLDER- daughter November 05, 2023 4:13a m Advance Directives Yes December 08, 2016 11:26am Living Will Yes November 05, 023 4:13am Power of Crystalizer Tender Yes November 05, 2023 4:13am Advance Directive Response Recorded Date/ Time Name of Medical Power of Crystalizer Tender ANOTNETTE WONG- daughter November 05, 2023 4:13a m Advance Directives on File Yes 2023 1:38pm Advance Directives Yes December 08, 2016 11:26am Living Will Yes January 02, 024 1:38pm Power of Crystalizer Tender Yes January 02, 2024 1:38pm Advance Directive Response Recorded Date/ Time Name of Medical Power of Crystalizer Tender ANTONETTE WONG- daughter November 05, 2023 5:13a m Advance Directives on File Yes 2023 2:38pm Name of Medical Power of Crystalizer Tender recalled January 27, 2024 3:07pm Advance Directives Yes December 08, 2016 12:26pm Living Will Yes January 27, 2024 3:07pm Power of Crystalizer Tender Yes January 26 3:07pm Advance Directive Response Recorded Date/ Time Name of Medical Power of Crystalizer Tender ANTONETTE vazquez November 05, 2023 5:13a m Advance Directives on File Yes [facility]2023 2:38pm Name of Medical Power of Crystalizer Tender recalled January 27, 2024 3:07pm Name of Medical Power of Crystalizer Tender ANTONETTE WONG February 15, 2024 7:47am Advance Directives Yes December 08, 2016 12:26pm Living Will Yes February 15, 2024 7:47am Power of Crystalizer Tender Yes February 14 7:47am Advance Directive Response Recorded Date/ Time Do you have a Healthcare Power of Crystalizer Tender? Yes April 18, 2025 10:45am Advance Directives Yes December 08, 2016 12:26pm Advance Directive Response Recorded Date/ Time Living Will Yes February 15, 2024 7:47am Do you have a Healthcare Power of Crystalizer Tender? Yes February 15, 2024 7:47am Do you have a Healthcare Power of Crystalizer Tender? Yes April 18, 2025 10:45am Advance Directives Yes December 08, 2016 12:26pm Family History Relationship Condition Age at Onset Recorded Date/T billie Unknown Family History?Heart Disease, No pertinent history Unknown September 16, 2020 1:03pm Family History?Hypertension Unknown November 04, 2018 1:52pm Family History?No pe rtinent history Unknown September 16, 2020 1:03pm Relationship Condition Age at Onset Recorded Date/T billie Unknown Family History?Heart Disease, No pertinent history Unknown September 16, 2020 12:03pm Family History?Hypertension Unknown November 04, 2018 12:52pm Family History?No pe rtinent history Unknown September 16, 2020 12:03pm Reason for Referral Specialty Diagnoses / Procedures Referred By Contac t Referred To Contact General Surgery Diagnoses Positive fecal occult blood test Procedures CONSULT TO GENERAL SURGERY OFFICE/OUTPATIENT [facility] 60-74 MINUTES Neida Martinez, LABORER LABORATORY.CERTIFIED NURSING ATTENDANT [address] [place] [address] Referral ID Status Reason Start Date Expiration Date Visits Requested Visits Authorized [id number] Authorized PCP Requested Referral 03/05/2022 03/05/2023 1 1 Specialty Diagnoses / Procedures Referred By Contac t Referred To Contact Gastroenterology Diagnoses Positive fecal occult blood test Procedures CONSULT TO GASTROENTEROLOGY OFFICE/OUTPATIENT [facility] 60-74 MINUTES Neida Martinez, LABORER LABORATORY.CERTIFIED NURSING ATTENDANT [address] [place] [address] Referral ID Status Reason Start Date Expiration Date Visits Requested Visits Authorized [id number] Authorized PCP Requested Referral 03/05/2022 03/05/2023 1 1 Specialty Diagnoses / Procedures Referred By Contac t Referred To Contact CT IMAGING Diagnoses Lung nodules Procedures CT CHEST WO IVCON DIAGNOSTIC COMPUTED TOMOGRAPHY THORAX W/O CNTRST Neida Martinez, LABORER LABORATORY.CERTIFIED NURSING ATTENDANT [address] [place] [address] Ct Imaging Referral ID Status Reason Start Date Expiration Date Visits Requested Visits Authorized [id number] Pending Review Auto-Generat ed Referral 03/08/2022 04/07/2023 1 1 Chief Complaint and Reason for Visit Chief Complaint STOOL SAMPLE Chief Complaint N/V/D Chief Complaint NSTEMI WITH UNCONTRO LLED HYPERTENSION Reason for Visit Chest pain Elevated troponin NSTEMI, initial episode of care Uncontrolled hypertension Chief Complaint NSTEMI WITH UNCONTRO LLED HYPERTENSION NSTEMI WITH UNCONTROLLED HYPERTENSION Reason for Visit Breast cancer Chest pain Elevated troponin NSTEMI, initial episode of care Uncontrolled hypertension Chief Complaint NSTEMI WITH UNCONTRO LLED HYPERTENSION POST PCI NSTEMI WITH UNCONTROLLED HYPERTENSION S/P [facility] 11/06 NSTEMI / HTN PCI with stenting Reason for Visit Chest pain Elevated troponin NSTEMI, initial episode of care Uncontrolled hypertension Stented coronary artery Chief Complaint NSTEMI WITH UNCONTRO LLED HYPERTENSION POST PCI NSTEMI WITH UNCONTROLLED HYPERTENSION S/P [facility] 11/06 NSTEMI / HTN PCI with stenting PCI with stent Reason for Visit Chest pain Elevated troponin NSTEMI, initial episode of care Uncontrolled hypertension Stented coronary artery Chief Complaint NSTEMI WITH UNCONTRO LLED HYPERTENSION POST PCI NSTEMI WITH UNCONTROLLED HYPERTENSION S/P [facility] 11/06 NSTEMI / HTN PCI with stenting PCI with stent PCI with stent L arm heaviness Reason for Visit Chest pain Elevated troponin NSTEMI, initial episode of care Uncontrolled hypertension Stented coronary artery Chief Complaint NSTEMI WITH UNCONTRO LLED HYPERTENSION POST PCI NSTEMI WITH UNCONTROLLED HYPERTENSION S/P [facility] 11/06 NSTEMI / HTN PCI with stenting PCI with stent PCI with stent L arm heaviness CP Reason for Visit Chest pain Elevated troponin NSTEMI, initial episode of care Uncontrolled hypertension Stented coronary artery Chief Complaint Admit Date chest pain April 18, 2025 10:41 am Chief Complaint Admit Date chest pain April 18, 2025 10:41 am 1 Y FU/MOVED FROM [facility] April 30, 2025 9: 57am Reason for Visit Admit Date CAD (coronary artery disease) April 30, 2025 9:57am Stented coronary artery April 30, 2025 9:57am Hypertension April 30, 2025 9:57 am Chief Complaint Admit Date chest pain April 18, 2025 10:41 am 1 Y FU/MOVED FROM [facility] April 30, 2025 9: 57am INT LAB ORDER April 30, 2025 10:4 0am Reason for Visit Admit Date Epigastric pain April 30, 2025 9:57 am CAD (coronary artery disease) April 30, 2025 9:57am Hypertension April 30, 2025 9:57 am Stented coronary artery April 30, 2025 9:57am Summary Purpose Additional Source Comments Source Comments (unrecognize d section and content) In the event this informatio n is protected by the [facility] Confidentiality of Alcohol and Drug Abuse Patient Records regulations: The Federal rules restrict any use of the information to criminally investigate or prosecute any alcohol or drug abuse patient.[facility] the event this information is protected by the Federal Confidentiality of Alcohol and Drug Abuse Patient Records regulations: The Federal rules restrict any use of the information to criminally investigate or prosecute any alcohol or drug abuse patient.[facility] MemorialIn the event this information is protected by the Federal Confidentiality of Alcohol and Drug Abuse Patient Records regulations: The Federal rules restrict any use of the information to criminally investigate or prosecute any alcohol or drug abuse patient.[facility] MemorialIn the event this information is protected by the Federal Confidentiality of Alcohol and Drug Abuse Patient Records regulations: The Federal rules restrict any use of the information to criminally investigate or prosecute any alcohol or drug abuse patient.[facility] MemorialIn the event this information is protected by the Federal Confidentiality of Alcohol and Drug Abuse Patient Records regulations: The Federal rules restrict any use of the information to criminally investigate or prosecute any alcohol or drug abuse patient.[facility] MemorialIn the event this information is protected by the Federal Confidentiality of Alcohol and Drug Abuse Patient Records regulations: The Federal rules restrict any use of the information to criminally investigate or prosecute any alcohol or drug abuse patient.[facility] MemorialIn the event this information is protected by the Federal Confidentiality of Alcohol and Drug Abuse Patient Records regulations: The Federal rules restrict any use of the information to criminally investigate or prosecute any alcohol or drug abuse patient.[facility] MemorialIn the event this information is protected by the Federal Confidentiality of Alcohol and Drug Abuse Patient Records regulations: The Federal rules restrict any use of the information to criminally investigate or prosecute any alcohol or drug abuse patient.[facility] MemorialIn the event this information is protected by the Federal Confidentiality of Alcohol and Drug Abuse Patient Records regulations: The Federal rules restrict any use of the information to criminally investigate or prosecute any alcohol or drug abuse patient.[facility] MemorialIn the event this information is protected by the Federal Confidentiality of Alcohol and Drug Abuse Patient Records regulations: The Federal rules restrict any use of the information to criminally investigate or prosecute any alcohol or drug abuse patient.[facility] MemorialIn the event this information is protected by the Federal Confidentiality of Alcohol and Drug Abuse Patient Records regulations: The Federal rules restrict any use of the information to criminally investigate or prosecute any alcohol or drug abuse patient.[facility] MemorialIn the event this information is protected by the Federal Confidentiality of Alcohol and Drug Abuse Patient Records regulations: The Federal rules restrict any use of the information to criminally investigate or prosecute any alcohol or drug abuse patient.[facility] MemorialIn the event this information is protected by the Federal Confidentiality of Alcohol and Drug Abuse Patient Records regulations: The Federal rules restrict any use of the information to criminally investigate or prosecute any alcohol or drug abuse patient.[facility] MemorialIn the event this information is protected by the Federal Confidentiality of Alcohol and Drug Abuse Patient Records regulations: The Federal rules restrict any use of the information to criminally investigate or prosecute any alcohol or drug abuse patient.[facility] MemorialIn the event this information is protected by the Federal Confidentiality of Alcohol and Drug Abuse Patient Records regulations: The Federal rules restrict any use of the information to criminally investigate or prosecute any alcohol or drug abuse patient.[facility] MemorialIn the event this information is protected by the Federal Confidentiality of Alcohol and Drug Abuse Patient Records regulations: The Federal rules restrict any use of the information to criminally investigate or prosecute any alcohol or drug abuse patient.[facility] MemorialIn the event this information is protected by the Federal Confidentiality of Alcohol and Drug Abuse Patient Records regulations: The Federal rules restrict any use of the information to criminally investigate or prosecute any alcohol or drug abuse patient.[facility] MemorialIn the event this information is protected by the Federal Confidentiality of Alcohol and Drug Abuse Patient Records regulations: The Federal rules restrict any use of the information to criminally investigate or prosecute any alcohol or drug abuse patient.[facility] MemorialIn the event this information is protected by the Federal Confidentiality of Alcohol and Drug Abuse Patient Records regulations: The Federal rules restrict any use of the information to criminally investigate or prosecute any alcohol or drug abuse patient.[facility] MemorialIn the event this information is protected by the Federal Confidentiality of Alcohol and Drug Abuse Patient Records regulations: The Federal rules restrict any use of the information to criminally investigate or prosecute any alcohol or drug abuse patient.[facility] MemorialIn the event this information is protected by the Federal Confidentiality of Alcohol and Drug Abuse Patient Records regulations: The Federal rules restrict any use of the information to criminally investigate or prosecute any alcohol or drug abuse patient.[facility] MemorialIn the event this information is protected by the Federal Confidentiality of Alcohol and Drug Abuse Patient Records regulations: The Federal rules restrict any use of the information to criminally investigate or prosecute any alcohol or drug abuse patient.[facility] MemorialIn the event this information is protected by the Federal Confidentiality of Alcohol and Drug Abuse Patient Records regulations: The Federal rules restrict any use of the information to criminally investigate or prosecute any alcohol or drug abuse patient.[facility] MemorialIn the event this information is protected by the Federal Confidentiality of Alcohol and Drug Abuse Patient Records regulations: The Federal rules restrict any use of the information to criminally investigate or prosecute any alcohol or drug abuse patient.[facility] MemorialIn the event this information is protected by the Federal Confidentiality of Alcohol and Drug Abuse Patient Records regulations: The Federal rules restrict any use of the information to criminally investigate or prosecute any alcohol or drug abuse patient.[facility] MemorialIn the event this information is protected by the Federal Confidentiality of Alcohol and Drug Abuse Patient Records regulations: The Federal rules restrict any use of the information to criminally investigate or prosecute any alcohol or drug abuse patient.[facility] MemorialIn the event this information is protected by the Federal Confidentiality of Alcohol and Drug Abuse Patient Records regulations: The Federal rules restrict any use of the information to criminally investigate or prosecute any alcohol or drug abuse patient.[facility] MemorialIn the event this information is protected by the Federal Confidentiality of Alcohol and Drug Abuse Patient Records regulations: The Federal rules restrict any use of the information to criminally investigate or prosecute any alcohol or drug abuse patient.[facility] MemorialIn the event this information is protected by the Federal Confidentiality of Alcohol and Drug Abuse Patient Records regulations: The Federal rules restrict any use of the information to criminally investigate or prosecute any alcohol or drug abuse patient.[facility] MemorialIn the event this information is protected by the Federal Confidentiality of Alcohol and Drug Abuse Patient Records regulations: The Federal rules restrict any use of the information to criminally investigate or prosecute any alcohol or drug abuse patient.[facility] MemorialIn the event this information is protected by the Federal Confidentiality of Alcohol and Drug Abuse Patient Records regulations: The Federal rules restrict any use of the information to criminally investigate or prosecute any alcohol or drug abuse patient.[facility] ClinicIn the event this information is protected by the Federal Confidentiality of Alcohol and Drug Abuse Patient Records regulations: The Federal rules restrict any use of the information to criminally investigate or prosecute any alcohol or drug abuse patient.[facility] MemorialIn the event this information is protected by the Federal Confidentiality of Alcohol and Drug Abuse Patient Records regulations: The Federal rules restrict any use of the information to criminally investigate or prosecute any alcohol or drug abuse patient.[facility] MemorialIn the event this information is protected by the Federal Confidentiality of Alcohol and Drug Abuse Patient Records regulations: The Federal rules restrict any use of the information to criminally investigate or prosecute any alcohol or drug abuse patient.[facility] MemorialIn the event this information is protected by the Federal Confidentiality of Alcohol and Drug Abuse Patient Records regulations: The Federal rules restrict any use of the information to criminally investigate or prosecute any alcohol or drug abuse patient.[facility] MemorialIn the event this information is protected by the Federal Confidentiality of Alcohol and Drug Abuse Patient Records regulations: The Federal rules restrict any use of the information to criminally investigate or prosecute any alcohol or drug abuse patient.[facility] MemorialIn the event this information is protected by the Federal Confidentiality of Alcohol and Drug Abuse Patient Records regulations: The Federal rules restrict any use of the information to criminally investigate or prosecute any alcohol or drug abuse patient.[facility] MemorialIn the event this information is protected by the Federal Confidentiality of Alcohol and Drug Abuse Patient Records regulations: The Federal rules restrict any use of the information to criminally investigate or prosecute any alcohol or drug abuse patient.[facility] MemorialIn the event this information is protected by the Federal Confidentiality of Alcohol and Drug Abuse Patient Records regulations: The Federal rules restrict any use of the information to criminally investigate or prosecute any alcohol or drug abuse patient.[facility] MemorialIn the event this information is protected by the Federal Confidentiality of Alcohol and Drug Abuse Patient Records regulations: The Federal rules restrict any use of the information to criminally investigate or prosecute any alcohol or drug abuse patient.[facility] MemorialIn the event this information is protected by the Federal Confidentiality of Alcohol and Drug Abuse Patient Records regulations: The Federal rules restrict any use of the information to criminally investigate or prosecute any alcohol or drug abuse patient.[facility] MemorialIn the event this information is protected by the Federal Confidentiality of Alcohol and Drug Abuse Patient Records regulations: The Federal rules restrict any use of the information to criminally investigate or prosecute any alcohol or drug abuse patient.[facility] MemorialIn the event this information is protected by the Federal Confidentiality of Alcohol and Drug Abuse Patient Records regulations: The Federal rules restrict any use of the information to criminally investigate or prosecute any alcohol or drug abuse patient.[facility] MemorialIn the event this information is protected by the Federal Confidentiality of Alcohol and Drug Abuse Patient Records regulations: The Federal rules restrict any use of the information to criminally investigate or prosecute any alcohol or drug abuse patient.[facility] MemorialIn the event this information is protected by the Federal Confidentiality of Alcohol and Drug Abuse Patient Records regulations: The Federal rules restrict any use of the information to criminally investigate or prosecute any alcohol or drug abuse patient.[facility] MemorialIn the event this information is protected by the Federal Confidentiality of Alcohol and Drug Abuse Patient Records regulations: The Federal rules restrict any use of the information to criminally investigate or prosecute any alcohol or drug abuse patient.[facility] MemorialIn the event this information is protected by the Federal Confidentiality of Alcohol and Drug Abuse Patient Records regulations: The Federal rules restrict any use of the information to criminally investigate or prosecute any alcohol or drug abuse patient.[facility] MemorialIn the event this information is protected by the Federal Confidentiality of Alcohol and Drug Abuse Patient Records regulations: The Federal rules restrict any use of the information to criminally investigate or prosecute any alcohol or drug abuse patient.[facility] MemorialIn the event this information is protected by the Federal Confidentiality of Alcohol and Drug Abuse Patient Records regulations: The Federal rules restrict any use of the information to criminally investigate or prosecute any alcohol or drug abuse patient.[facility] MemorialIn the event this information is protected by the Federal Confidentiality of Alcohol and Drug Abuse Patient Records regulations: The Federal rules restrict any use of the information to criminally investigate or prosecute any alcohol or drug abuse patient.[facility] MemorialIn the event this information is protected by the Federal Confidentiality of Alcohol and Drug Abuse Patient Records regulations: The Federal rules restrict any use of the information to criminally investigate or prosecute any alcohol or drug abuse patient.[facility] MemorialIn the event this information is protected by the Federal Confidentiality of Alcohol and Drug Abuse Patient Records regulations: The Federal rules restrict any use of the information to criminally investigate or prosecute any alcohol or drug abuse patient.[facility] MemorialIn the event this information is protected by the Federal Confidentiality of Alcohol and Drug Abuse Patient Records regulations: The Federal rules restrict any use of the information to criminally investigate or prosecute any alcohol or drug abuse patient.[facility] MemorialIn the event this information is protected by the Federal Confidentiality of Alcohol and Drug Abuse Patient Records regulations: The Federal rules restrict any use of the information to criminally investigate or prosecute any alcohol or drug abuse patient.[facility] Reason for Visit (unrecogniz ed section and content) Reason Onset Date Comments Refill Request 02/07/2022 Reason Comments Urinary Frequency x 1 week [...] Comments F/U 6 months Transition Of Care [facility] F/U 11/05/23 - 1 01/07/23 Reason Comments Hospital F/U Reason Onset Date Comments Refill Request 02/27/2024 Reason Onset Date Comments Refill Request 08/01/2024 Reason Onset Date Comments Refill Request 08/05/2024 Reason Comments Consult Lump on left shoulde r Reason Onset Date Comments Refill Request 08/15/2024 Reason Onset Date Comments Refill Request 08/13/2024 Reason Comments Procedure Excision skin lesion Reason Comments nursevisit Nurse Visit Suture removal Reason Onset Date Comments Refill Request 10/20/2024 Reason Comments UTI Urinary frequency, l ower abdomen pain x 2 days Reason Comments Results Labs Reason Comments Release Of Medical Records Reason Comments F/U 6 months Labs prior Reason Comments Request for Office visit note Reason Onset Date Comments Population Health Navigation Outreach 12/19/2024 [facility] Reason Onset Date Comments Population Health Navigation Outreach 01/23/2025 [facility] Reason Onset Date Comments Refill Request 02/02/2025 Reason Onset Date Comments Population Health Navigation Outreach [facility]/25[facility]20[facility] Reason [facility] Patient Update Reason Onset Date Comments Population Health Navigation Outreach [facility]/27[facility]20[facility] Reason Comments ED Follow-up UTI Reason Onset Date Comments Refill Request 05/09/2025 Reason Onset Date Comments Refill Request 05/18/2025 Care Teams (unrecognized sec tion and content) Wind Tunnel Engineer Relationship Specialty Start Date End Date Amrik Mejia MD [facility] [address] PCP - General 11/22/02 Wind Tunnel Engineer Relationship Specialty Start Date End Date Amrik Mejia MD [address] [place] [address], [place] [address] PCP - General 11/22/02 Wind Tunnel Engineer Relationship Specialty Start Date End Date Amrik Mejia MD [address] [place] [address], [place] [address] PCP - General 11/22/02 Wind Tunnel Engineer Relationship Specialty Start Date End Date Amrik Mejia MD [address] [place] [address], [place] [address] PCP - General 11/22/02 Wind Tunnel Engineer Relationship Specialty Start Date End Date Amrik Mejia MD [address] [place] [address], [place] [address] PCP - General 11/22/02 Wind Tunnel Engineer Relationship Specialty Start Date End Date Amrik Mejia MD [facility] [place] [address] PCP - General 11/22/02 Wind Tunnel Engineer Relationship Specialty Start Date End Date Amrik Mejia MD [address] [place] [address], [place] [address] PCP - General 11/22/02 Wind Tunnel Engineer Relationship Specialty Start Date End Date Amrik Mejia MD [address] [place] [address], [place] [address] PCP - General 11/22/02 Wind Tunnel Engineer Relationship Specialty Start Date End Date Amrik Mejia MD [address] [facility] [address] PCP - General 11/22/02 Wind Tunnel Engineer Relationship Specialty Start Date End Date Amrik Mejia MD [address] [place] [address] PCP - General 11/22/02 Wind Tunnel Engineer Relationship Specialty Start Date End Date Amrik Mejia MD [address] [place] [address] PCP - General 11/22/02 Wind Tunnel Engineer Relationship Specialty Start Date End Date Amrik Mejia MD [address] [place] [address] PCP - General 11/22/02 Wind Tunnel Engineer Relationship Specialty Start Date End Date Amrik Mejia MD [address] [place] [address] PCP - General 11/22/02 Wind Tunnel Engineer Relationship Specialty Start Date End Date Amrik Mejia MD [address] [place] [address] PCP - General 11/22/02 Wind Tunnel Engineer Relationship Specialty Start Date End Date Amrik Mejia MD [address] [place] [address] PCP - General 11/22/02 Wind Tunnel Engineer Relationship Specialty Start Date End Date Amrik Mejia MD [address] [place] [address] PCP - General 11/22/02 Wind Tunnel Engineer Relationship Specialty Start Date End Date Amrik Mejia MD [address] [place] [address] PCP - General 11/22/02 Wind Tunnel Engineer Relationship Specialty Start Date End Date Amrik Mejia MD [address] [place] [address] PCP - General 11/22/02 Team Status: Active Member Role Status Dates Dr. Amrik Mejia MD Family Provider Active Dr. Amrik Mejia MD Primary Care Provider Active Team Status: Active Member Role Status Dates Dr. Amrik Mejia MD Primary Care Provider Active Dr. Vinod Islas DO Emergency Provider Active Dr. Lei Prado DO Admit Provider, Attending Pr ovider Active Team Status: Active Member Role Status Dates Dr. Amrik Mejia MD Primary Care Provider Active Dr. Yris Zavala MD Attending Provider Active Team Status: Active Member Role Status Dates Dr. Amrik Mejia MD Primary Care Provider Active Dr. Vinod Islas DO Emergency Provider Active Dr. Lei Prado DO Admit Provider, Other Provid er Active Renata Larkin Other Provider Active Dr. Seda Washington MD Other Provider Active Dr. Jen Lindsay MD Other Provider Active Dr. River Arcos MD Other Provider Active Dr. Connor Carcamo MD Other Provider Active Dr. Maciel Abad MD Other Provider Active Dr. Basilio Rees MD Other Provider Active Dr. Vinod Moreno MD Other Provider Active Dr. Yris Zavala MD Other Provider Active Dr. Juan Burciaga MD Other Provider Active Dr. Francisco Sotomayor MD Other Provider Active Dr. Annabelle Sandoval MD Other Provider Active Dr. Gege Brewre MD Other Provider Active Dr. Kee Miller MD Other Provider Active Dr. Sam Oswald MD Other Provider Active Dr. Manuel Owen MD Other Provider Active Dr. Miles Ellis MD Other Provider Active Raj Wheeler EVENT PLANNING INTERN, EVENT PLANNING INTERN-C Other Provider Active Renata Holland EVENT PLANNING INTERN, EVENT PLANNING INTERN-C Other Provider Active Vicky Leon PA, PA Other Provider Active Dr. Vinod Car DO Attending Provider, Other Provid er Active Team Status: Inactive Member Role Status Dates Dr. Amrik eMjia MD Primary Care Provider Active Dr. Vinod Islas DO Emergency Provider Active Dr. Lei Prado DO Admit Provider, Other Provid er Active Renata Larkin Other Provider Active Dr. Seda Washington MD Other Provider Active Dr. Jen Lindsay MD Other Provider Active Dr. River Arcos MD Other Provider Active Dr. Connor Carcamo MD Other Provider Active Dr. Maciel Abad MD Other Provider Active Dr. Basilio Rees MD Other Provider Active Dr. Vinod Moreno MD Other Provider Active Dr. Yris Zavala MD Other Provider Active Dr. Juan Burciaga MD Other Provider Active Dr. Francisco Sotomayor MD Other Provider Active Dr. Annabelle Sandoval MD Other Provider Active Dr. Gege Brewer MD Other Provider Active Dr. Kee Miller MD Other Provider Active Dr. Sam Oswald MD Other Provider Active Dr. Manuel Owen MD Other Provider Active Dr. Miles Ellis MD Other Provider Active Raj Wheeler EVENT PLANNING INTERN, EVENT PLANNING INTERN-C Other Provider Active Renata Holland EVENT PLANNING INTERN, EVENT PLANNING INTERN-C Other Provider Active Vicky Leon PA, PA Other Provider Active Dr. Vinod Car DO Attending Provider Active Wind Tunnel Engineer Relationship Specialty Start Date End Date Amrik Mejia MD [address] [place] [address] PCP - General 11/22/02 Team Status: Inactive Member Role Status Dates Dr. Amrik Mejia MD Primary Care Provider, Referr ing Provider Active Renata Holland EVENT PLANNING INTERN, EVENT PLANNING INTERN-C Attending Provider Active Team Status: Active Member Role Status Dates Dr. Amrik Mejia MD Primary Care Provider Active Dr. Maciel Abad MD Attending Provider Active Dr. Vinod Car DO Referring Provider Active Team Status: Active Member Role Status Dates Dr. Amrik Mejia MD Primary Care Provider Active Dr. Maciel Abad MD Attending Provider Active Team Status: Inactive Member Role Status Dates Dr. Amrik Mejia MD Primary Care Provider Active Dr. Maciel Abad MD Attending Provider, Referring Pro vider Active Wind Tunnel Engineer Relationship Specialty Start Date End Date Amrik Mejia MD [address] [place] [address] PCP - General 11/22/02 Team Status: Active Member Role Status Dates Dr. Amrik Mejia MD Primary Care Provider Active Dr. Maciel Abad MD Attending Provider, Referring Pro vider Active Team Status: Inactive Member Role Status Dates Dr. Amrik Mejia MD Primary Care Provider Active Dr. Hector Feldman MD Emergency Provider Active Team Status: Inactive Member Role Status Dates Dr. mArik Mejia MD Primary Care Provider Active Dr. Hector Feldman MD Attending Provider, Emergency Provi javy Active Team Status: Inactive Member Role Status Dates Dr. Amrik Mejia MD Primary Care Provider Active Dr. Amena Shine MD Emergency Provider Active Wind Tunnel Engineer Relationship Specialty Start Date End Date Amrik Mejia MD [address] [place] [address] PCP - General 11/22/02 Wind Tunnel Engineer Relationship Specialty Start Date End Date Amrik Mejia MD [address] [place] [address] PCP - General 11/22/02 Wind Tunnel Engineer Relationship Specialty Start Date End Date Amrik Mejia MD [address] [place], [place] [address] PCP - General 11/22/02 Wind Tunnel Engineer Relationship Specialty Start Date End Date Amrik Mejia MD [address] [place], [place] [address] PCP - General 11/22/02 Wind Tunnel Engineer Relationship Specialty Start Date End Date Amrik Mejia MD [address] [place] [address] PCP - General 11/22/02 Wind Tunnel Engineer Relationship Specialty Start Date End Date Amrik Mejia MD [address] [place] [address] PCP - General 11/22/02 Wind Tunnel Engineer Relationship Specialty Start Date End Date Amrik Mejia MD [address] [place] [address] PCP - General 11/22/02 Wind Tunnel Engineer Relationship Specialty Start Date End Date Amrik Mejia MD [address] [place] [address] PCP - General 11/22/02 Wind Tunnel Engineer Relationship Specialty Start Date End Date Amrik Mejia MD [address] [place] [address] PCP - General 11/22/02 Wind Tunnel Engineer Relationship Specialty Start Date End Date Amrik Mejia MD [address] [place] [address] PCP - General 11/22/02 Neida Martinez, LABORER LABORATORY.CERTIFIED NURSING ATTENDANT [address] [place] [address] Real Estate Economist Internal Medicine 10/22/24 Miryam Bond, LABORER LABORATORY.ASSISTANT BUYER [address] [place] [address] Real Estate Economist Internal Medicine 10/22/24 Wind Tunnel Engineer Relationship Specialty Start Date End Date Amrik Mejia MD [address] [place] [address] PCP - General 11/22/02 Neida Martinez, LABORER LABORATORY.CERTIFIED NURSING ATTENDANT [address] [place] [address] Real Estate Economist Internal Medicine 10/22/24 Miryam Bond LABORER LABORATORY.ASSISTANT BUYER [address] [place] [address] [facility] Internal [facility] 10/22/24 Wind Tunnel Engineer Relationship Specialty Start Date End Date Amrik Mejia MD [address] [place] [address] PCP - General 11/22/02 Neida Martinez, LABORER LABORATORY.CERTIFIED NURSING ATTENDANT [address] [place] [address] Real Estate Economist Internal Medicine 10/22/24 Miryam Bond LABORER LABORATORY.ASSISTANT BUYER [address] [place] [address] [facility] 10/22/24 Wind Tunnel Engineer Relationship Specialty Start Date End Date Amrik Mejia MD [address] [place] [address] PCP - General 11/22/02 Neida Martinez, LABORER LABORATORY.CERTIFIED NURSING ATTENDANT [address] [place] [address] [facility] 10/22/24 Miryam Bond LABORER LABORATORY.ASSISTANT BUYER [address] [place] [address] Real Estate Economist Internal Medicine 10/22/24 Wind Tunnel Engineer Relationship Specialty Start Date End Date Amrik Mejia MD [address] [place] [address] PCP - General 11/22/02 Neida Martinez, LABORER LABORATORY.CERTIFIED NURSING ATTENDANT [address] [place] [address] Real Estate Economist Internal Medicine 10/22/24 Miryam Bond LABORER LABORATORY.ASSISTANT BUYER [address] [place] [address] Real Estate Economist Internal Medicine 10/22/24 Wind Tunnel Engineer Relationship Specialty Start Date End Date Amrik Mejia MD [address] [place] [address] PCP - General 11/22/02 Neida Martinez, LABORER LABORATORY.CERTIFIED NURSING ATTENDANT [address] [place] [address] Real Estate Economist Internal Medicine 10/22/24 Miryam Bond LABORER LABORATORY.ASSISTANT BUYER [address] [place] [address] Real Estate Economist Internal Medicine 10/22/24 Wind Tunnel Engineer Relationship Specialty Start Date End Date Amrik Mejia MD [address] [place] [address] PCP - General 11/22/02 Neida Martinez, LABORER LABORATORY.CERTIFIED NURSING ATTENDANT [address] [place] [address] Real Estate Economist Internal Medicine 10/22/24 Miryam Bond APRN.ASSISTANT BUYER [address] [place] [address] [facility] 10/22/24 Wind Tunnel Engineer Relationship Specialty Start Date End Date Amrik Mejia MD [address] [place] [address] PCP - General 11/22/02 Neida Martinez, LABORER LABORATORY.CERTIFIED NURSING ATTENDANT [address] [place] [address] [facility] 10/22/24 Wind Tunnel Engineer Relationship Specialty Start Date End Date Amrik Mejia MD [address] [place] [address] PCP - General 11/22/02 Neida Martinez, LABORER LABORATORY.CERTIFIED NURSING ATTENDANT [address] [place] [address] [facility] 10/22/24 Miryam Bond LABORER LABORATORY.ASSISTANT BUYER [address] [place] [address] [facility] 02/05/25 Wind Tunnel Engineer Relationship Specialty Start Date End Date Amrik Mejia MD [address] [place] [address] PCP - General 11/22/02 Neida Martinez, LABORER LABORATORY.CERTIFIED NURSING ATTENDANT [address] [place] [address] [facility] 10/22/24 Miryam Bond, LABORER LABORATORY.ASSISTANT BUYER [address] [place] [address] [facility] 02/05/25 Team Status: Active Member Role Status Dates Dr. Amrik Mejia MD Primary Care Provider Active Team Status: Inactive Member Role Status Dates Dr. Amrik Mejia MD Primary Care Provider Active Start: April 18, 2025 End: April 18, 2025 Dr. Ayush Pressley , DO Emergency Provider Activ e Start: April 18, 2025 End: April 18, 2025 Wind Tunnel Engineer Relationship Specialty Start Date End Date Amrik Mejia MD [address] [place] [address] PCP - General 11/22/02 Miryam Bond APRN.ASSISTANT BUYER [address] [place] [address] [facility] 02/05/25 Neida Martinez APRN.CERTIFIED NURSING ATTENDANT [address] [place] [address] [facility] 04/03/25 Team Status: Inactive Member Role Status Dates Dr. Amrik Mejia MD Primary Care Provider Active Start: April 18, 2025 End: April 18, 2025 Dr. Ayush Pressley , DO Attending Provider Activ e Start: April 18, 2025 End: April 18, 2025 Dr. Ayush Pressley , DO Emergency Provider Activ e Start: April 18, 2025 End: April 18, 2025 Team Status: Inactive Member Role Status Dates Dr. Amrik Mejia MD Primary Care Provider Active Start: April 30, 2025 End: April 30, 2025 Dr. Amrik Mejia MD Referring Provider Active Start: April 30, 2025 End: April 30, 2025 ADELAIDA Acevedo Attending Provider Active St art: April 30, 2025 End: April 30, 2025 Team Status: Inactive Member Role Status Dates Dr. Amrik Mejia MD Primary Care Provider Active Start: April 30, 2025 End: April 30, 2025 ADELAIDA Acevedo Attending Provider Active St art: April 30, 2025 End: April 30, 2025 ADELAIDA Acevedo Referring Provider Active St art: April 30, 2025 End: April 30, 2025 Wind Tunnel Engineer Relationship Specialty Start Date End Date Amrik Mejia MD [address] [facility] [address] PCP - General 11/22/02 Miryam Bond APRN.ASSISTANT BUYER [address] [place] [address] Real Estate Economist Internal Medicine 02/05/25 Neida Martinez, LABORER LABORATORY.CERTIFIED NURSING ATTENDANT [address] [place] [address] Real Estate Economist Internal Medicine 04/03/25 Wind Tunnel Engineer Relationship Specialty Start Date End Date Amrik Mejia MD [address] [place] [address] PCP - General 11/22/02 Miyram Bond LABORER LABORATORY.ASSISTANT BUYER [address] [place] [address] Real Estate Economist Internal Medicine 02/05/25 Neida Martinez, LABORER LABORATORY.CERTIFIED NURSING ATTENDANT [address] [place] [address] Real Estate Economist Internal Medicine 04/03/25 Goals (unrecognized section and content) Goals may be documented in a n alternate sectionGoals may be documented in an alternate sectionGoals may be documented in an alternate sectionGoals may be documented in an alternate sectionGoals may be documented in an alternate sectionGoals may be documented in an alternate sectionGoals may be documented in an alternate sectionGoals may be documented in an alternate sectionGoals may be documented in an alternate section INFORMATION SOURCE (unrecogn ized section and content) DATE CREATED AUTHOR 04/29/2025 [facility] DATE CREATED AUTHOR AUTHOR'S ELLIS IZAGUIRRE 05/06/2025 [facility] FOR RECORDS PERTAINING TO PATIENTS WHO ARE [...] BE BASED ON THE PRIMARY CLINICAL RECORDS. [employer] provides no warranty or guarantee of the accuracy or completeness of information in this document.
--- NOTE | 2025-06-13 16:21 | STRESSREP ---
Stress Test Report Pharmacologic myocardial perfusion stress test. 85-year-old lady with a history of chest pain Resting EKG demonstrates sinus bradycardia with a rate of 55 bpm. Resting blood pressure is 118/76 mmHg. 0.4 mg of regadenoson was infused per usual protocol followed by rapid intravenous saline flush injection. Continuous EKG monitoring was performed. The maximum heart rate was 62 bpm which was 45% of max impacted heart rate the maximum workload was 1 metabolic equivalent. At rest there were no ST or T wave changes noted to suggest ischemia and at peak infusion nonspecific ST changes were noted which did not meet the criteria for ischemia. No clinical angina is noted. The final blood pressure was 114/64 mmHg. Myocardial perfusion protocol. 11.7 mCi of technetium 99m sestamibi was injected at rest. 0.4 mg of regadenoson was infused per usual protocol. At peak infusion 34.2 mCi of technetium 99m sestamibi was injected stress images were obtained stress and rest images were reconstructed and compared in the short axis vertical long and horizontal long axis. Gated images were also obtained. Perfusion SPECT analysis: Review of the stress images demonstrate normal uptake of tracer noted in all areas of the myocardium. There is a small area in the inferolateral wall with a perfusion defect which is present. The resting images demonstrate a similar pattern to. No reversibility is noted suggest ischemia. Gated SPECT analysis: The gated ejection fraction is 66%. 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 No ischemia noted. Preserved ejection fraction.
== END | disposition home or self-care (01) ==
LOC: CVS 06:53
PROVIDERS: PCP Internal Medicine; Referring Provider Student in an Organized Health Care Education/Training Program; Visit Provider Student in an Organized Health Care Education/Training Program
DX: I25.10 Atherosclerotic heart disease of native coronary artery without angina pectoris (principal); R10.13 Epigastric pain
CPT/HCPCS: 78452; 93017; A9500; A4216; J2785